=== PATIENT | female | born 1935 | race Hispanic/Latino ===

== ENCOUNTER 2016-12-09 16:23 | Inpatient (IN) | payer MEDICARE ==
[2016-12-09 17:21] VITALS: BMI 37.8
[2016-12-09] MEDS ORDERED: Sodium Chloride 0.9% 1,000 ML IV STA ×2 (17:29→22:29)
--- NOTE | 2016-12-09 17:51 | ED PDOC ---
Arrival/HPI - General Chief Complaint: Altered Mental Status Time Seen by Provider: 12/09/16 17:06 Historian: Patient - History of Present Illness Narrative History of Present Illness (Text): 12/09/16 17:19 A 81 year old female, whose past medical history includes atrial fibrillation, hypertension, hyperlipidemia and CAD, presents to the emergency department complaining of not feeling well for the past couple of days. Patient notes feeling generally weak, dizzy, having a slight headache and some nausea. She states she was told she urinates more frequently, but she denies any fever, chills, abdominal pain, vision change or any other complaints at this time. PMD: Dr. Donohue Time/Duration: Other (couple of days) Symptom Onset: Sudden Symptom Course: Unchanged Quality: Other Activities at Onset: Rest Context: Home Past Medical History - Provider Review Nursing Documentation Reviewed: Yes - Infectious Disease Hx of Infectious Diseases: None - Cardiac Hx Cardiac Disorders: Yes Hx Hypertension: Yes - Pulmonary Hx Respiratory Disorders: No - Neurological Hx Neurological Disorder: Yes Hx Dizziness: Yes - HEENT Hx HEENT Disorder: No - Renal Hx Renal Disorder: No - Endocrine/Metabolic Hx Endocrine Disorders: No - Hematological/Oncological Hx Blood Disorders: Yes Hx Shingles: Yes - Integumentary Hx Dermatological Disorder: Yes Other/Comment: Shingles on left side of neck on 04/14/16 - Musculoskeletal/Rheumatological Hx Falls: Yes - Gastrointestinal Hx Gastrointestinal Disorders: No - Genitourinary/Gynecological Hx Genitourinary Disorders: No Hx Reproductive Disorders: No - Psychiatric Hx Psychophysiologic Disorder: No Hx Emotional Abuse: No Hx Physical Abuse: No Hx Substance Use: No - Surgical History Hx Coronary Stent: Yes (X2) - Anesthesia Hx Anesthesia Reactions: No Hx Malignant Hyperthermia: No - Suicidal Assessment Feels Threatened In Home Enviroment: No Family/Social History - Physician Review Nursing Documentation Reviewed: Yes Family/Social History: Unknown Family HX Smoking Status: Never Smoked Hx Alcohol Use: No Hx Substance Use: No Allergies/Home Meds Allergies/Adverse Reactions: Allergies No Known Allergies Allergy (Verified 05/12/16 03:11) Home Medications: Home Meds Medication Instructions Recorded Confirmed Gabapentin [Neurontin] 300 mg PO TID 04/14/14 12/09/16 Pravastatin Sodium [Pravachol] 80 mg PO DAILY 04/14/14 12/09/16 Warfarin [Coumadin] 2 mg PO DAILY 04/14/14 12/09/16 Warfarin [Coumadin] 3 mg PO DAILY 12/09/16 12/09/16 Review of Systems - Physician Review All systems were reviewed & negative as marked: Yes - Review of Systems Systems not reviewed;Unavailable: Altered Mental Status (limits ROS reliability) Constitutional: Fatigue. absent: Fevers Eyes: absent: Vision Changes Respiratory: absent: SOB, Cough Cardiovascular: absent: Chest Pain Gastrointestinal: Nausea. absent: Abdominal Pain, Vomiting Genitourinary Female: Frequency. absent: Dysuria Neurological: Headache, Dizziness Physical Exam Vital Signs Reviewed: Yes Vital Signs Temp Pulse Resp BP Pulse Ox 12/09/16 21:42 101.4 F H 98 H 18 145/68 94 L 12/09/16 17:48 102 H 18 133/65 95 12/09/16 16:24 98.7 F 97 H 16 135/63 95 Temperature: Afebrile Blood Pressure: Normal Pulse: Regular Respiratory Rate: Normal Appearance: Positive for: Well-Appearing, Non-Toxic, Comfortable Pain Distress: None Mental Status: Positive for: Confused (mildly confused; AA&O x 2). No: Alert and Oriented X 3 (Alert and oriented to place and self but not time) - Systems Exam Head: Present: Atraumatic, Normocephalic Pupils: Present: PERRL Conjunctiva: Present: Normal Mouth: Present: Moist Mucous Membranes Pharnyx: Present: Normal. No: ERYTHEMA, EXUDATE Neck: Present: Normal Range of Motion Respiratory/Chest: Present: Clear to Auscultation, Good Air Exchange. No: Respiratory Distress, Accessory Muscle Use Cardiovascular: Present: Normal S1, S2, Irregular Rhythm. No: Murmurs Abdomen: Present: Normal Bowel Sounds. No: Tenderness, Distention, Peritoneal Signs Back: Present: Normal Inspection Upper Extremity: Present: Normal Inspection. No: Cyanosis, Edema Lower Extremity: Present: Edema (trace edema bilateral with nonblanching small papular rash) Neurological: Present: GCS=15, CN II-XII Intact, Speech Normal Skin: Present: Warm, Dry, Rashes (non blanching erythematous rash to the bilateral lower extremities), Normal Color Psychiatric: Present: Alert, Normal Insight, Normal Concentration. No: Oriented x 3 (oriented to self and place but not time) Medical Decision Making ED Course and Treatment: 12/09/16 17:19 Impression: A 81 year old female with generalized weakness, dizziness, headache and nausea. Differential Diagnosis include but are not limited to: infection vs TIA/CVA vs. dehydration vs electrolyte abnormality Plan: -- EKG -- Head CT -- Chest X-ray -- Labs -- Urinalysis -- IV Fluids -- Reassess and disposition Prior Visits: Notes and results from previous visits were reviewed. The patient last presented to the emergency department on 05/04/16 for evaluation of generalized weakness and lightheadedness. Progress Notes: EKG: Ordered, reviewed, and independently interpreted the EKG. Rate : 100 BPM Rhythm : Atrial fibrillation with PVC's Interpretation : right axis deviation with non specific ST/T changes. 12/09/16 19:20 CT Head Without Intravenous Contrast: Dictated and Authenticated by: Laina Chau MD COMPARISON: CT - HEAD W/O CONTRAST 05/04/2016 10:10:04 AM FINDINGS: Brain: Periventricular hypoattenuation is likely related to small vessel disease. No hemorrhage. No edema. Ventricles: Unremarkable. No ventriculomegaly. Bones/joints: Unremarkable. No acute fracture. Soft tissues: Unremarkable. Sinuses: Unremarkable as visualized. No acute sinusitis. Mastoid air cells: Unremarkable as visualized. No mastoid effusion. IMPRESSION: No acute findings. 12/09/16 21:01 Patient with leukocytosis and borderline tachycardia; lactic acid is 3.7. Code sepsis was called. 12/09/16 22:08 US abdomen pelvis reviewed: No acute findings. CT abdomen pelvis results reviewed: IMPRESSION: 1. LEFT distal ureteral calculus with mild hydroureteronephrosis. 2. Probable cirrhosis. 3. Mild cystitis vs underdistention. Correlate with urinalysis. 12/09/16 22:00 Given stone found on CT; will continue aggressive hydration and will add meropenem. 12/09/16 22:45 Case was discussed with Dr. Lazo for admission to his service. Case discussed with ICU attending, Dr. Barragan, who will accept the patient to the ICU. Case discussed with Dr. Rivero, who said to continue to hydration and repeat lactic acid, admit to ICU, with plan to take her to the OR in the early am. Spoke with sister's to inform of plan. - Critical Care Critical Care Minutes: 30 minutes - Lab Interpretations Lab Results: 12/09/16 18:45 12/09/16 18:45 Lab Results 12/09/16 19:56: Urine Opiates Screen Negative, Urine Methadone Screen Negative, Ur Barbiturates Screen Negative, Ur Phencyclidine Scrn Negative, Ur Amphetamines Screen Negative, U Benzodiazepines Scrn Negative, U Oth Cocaine Metabols Negative, U Cannabinoids Screen Negative 12/09/16 19:50: Urine Color Yellow, Urine Appearance Sl cloudy, Urine pH 6.0, Ur Specific [place] 1.025, Urine Protein 100 H, Urine Glucose (UA) Negative, Urine Ketones Negative, Urine Blood Large H, Urine Nitrate Positive H, Urine Bilirubin Negative, Urine Urobilinogen 0.2, Ur Leukocyte Esterase Moderate H, Urine RBC 25 - 30, Urine WBC 20 - 25, Ur Epithelial Cells 4 - 5, Amorphous Sediment Moderate, Urine Bacteria Many, Urine Other Uyeast 12/09/16 18:45: pO2 49, VBG pH 7.34, VBG pCO2 45.0, VBG HCO3 24.3, VBG Total CO2 25.7, VBG O2 Sat (Calc) 87.9 H, VBG Base Excess -1.7 L, VBG Potassium 3.5 L , Sodium 138.0, Chloride 105.0, Glucose 110 H, Lactate 3.7 H, FiO2 21.0, Venous Blood Potassium 3.5 L 12/09/16 18:45: Alcohol, Quantitative < 10 12/09/16 18:45: Sodium 137, Chloride 100, Potassium 3.6, Carbon Dioxide 23, Anion Gap 18, BUN 17, Creatinine 0.7, Est GFR ( Amer) > 60, Est GFR (Non- Af Amer) > 60, Random Glucose 106, Calcium 9.6, Total Bilirubin 1.4 H, AST 70 H , ALT 60 H, Alkaline Phosphatase 100, Lactate Dehydrogenase 715 H, Total Creatine Kinase 133, Troponin I 0.04 D, Total Protein 7.8, Albumin 4.0, Globulin 3.8, Albumin/Globulin Ratio 1.1, Amylase 42, Lipase 19 L 12/09/16 18:45: PT 37.6 H*, INR 3.48 H, APTT 49.6 H 12/09/16 18:45: WBC 17.9 H, RBC 4.33, Hgb 13.4, Hct 39.1, MCV 90.3, MCH 30.9, MCHC 34.3, RDW 15.2 H, Plt Count 113 L, MPV 10.9, Gran % 89.7 H, Lymph % (Auto) 2.4 L, [place] % (Auto) 7.8 H, Eos % (Auto) 0.0 L, Baso % (Auto) 0.1, Gran # 16.03 H, Lymph # 0.4 L, [place] # 1.4 H, Eos # 0.0, Baso # 0.02 I have reviewed the lab results: Yes - RAD Interpretation Narrative RAD Interpretations (Text): EXAM: US Abdomen Complete FINDINGS: Liver: Enlarged, 18.8 cm. Fatty infiltration. No mass. No intrahepatic ductal dilatation. Gallbladder: No gallstones. No wall thickening. No pericholecystic fluid. No sonographic Rogers's sign. Common bile duct: No dilatation. No stones. Pancreas: Unremarkable as visualized. Kidneys: Normal echogenicity. Few small RIGHT renal cysts. No hydronephrosis. Spleen: No splenomegaly. Aorta: Unremarkable. No aneurysm. Inferior vena cava: Unremarkable. Free fluid: No significant free fluid. IMPRESSION: 1. No acute findings. 2. Non-acute findings are described above. EXAM: CT Abdomen and Pelvis With Intravenous Contrast FINDINGS: Lower thorax: Mild cardiomegaly. Mild atelectasis/scarring. Small RIGHT pleural effusion. Small hiatal hernia. ABDOMEN: Liver: Lobulated contour. Gallbladder and bile ducts: Mild gallbladder distention. No calcified gallstones. No ductal dilation. Pancreas: No ductal dilation. No mass. Spleen: No splenomegaly. Adrenals: No mass. Kidneys and ureters: Mild stranding about LEFT kidney. Few RIGHT renal cysts. Few punctate calculi within kidneys. Mild pelvocaliectasis of LEFT kidney. Mildly dilated LEFT ureter. 0.7 x 0.5 x 0.5 calculus within LEFT distal ureter. Stomach and bowel: Few segmental areas of underdistention of colon. No definite mural thickening. No obstruction. Appendix: Normal caliber. No inflammation. PELVIS: Bladder: Apparent mild bladder wall thickening. Collapsed bladder, limiting evaluation. Reproductive: Calcifications within the LEFT adnexal region, stable. ABDOMEN and PELVIS: Intraperitoneal space: No significant fluid collection. No free air. Bones/joints: Degenerative changes of spine. No acute fracture. Soft tissues: Small umbilical hernia containing fat. Small RIGHT inguinal hernia containing fat and fluid. Tiny LEFT inguinal hernia containing fat. Vasculature: Ambp-[id number] atherosclerotic disease. No aortic aneurysm. Lymph nodes: No pathologically enlarged lymph nodes. IMPRESSION: 1. LEFT distal ureteral calculus with mild hydroureteronephrosis. 2. Probable cirrhosis. 3. Mild cystitis vs underdistention. Correlate with urinalysis. 4. Incidental/non-acute findings are described above. Radiology Orders: 12/09/16 17:26 Brain [HEAD W/O CONTRAST] [CT] Stat 12/09/16 17:27 CHEST PORTABLE [RAD] Stat 12/09/16 19:38 ABD & PELVIS IV CONTRAST ONLY [CT] Stat ABDOMEN COMPLETE [US] Stat Deodorizer Operator: Radiologist - Medication Orders Current Medication Orders: Sodium Chloride (Sodium Chloride 0.9%) 1,000 mls @ 100 mls/hr IV .Q10H STA Stop: 12/10/16 03:28 Last Admin: 12/09/16 19:01 Dose: 100 mls/hr Meropenem 1g/NS 100mL IVPB (Meropenem 1g/Ns 100ml Ivpb) 1 gm in 100 mls @ 100 mls/hr IVPB STAT STA PRN Reason: Protocol Stop: 12/09/16 23:08 Sodium Chloride (Sodium Chloride 0.9%) 1,000 mls @ 999 mls/hr IV .Q1H1M STA Stop: 12/09/16 23:29 Meropenem 1g/NS 100mL IVPB (Meropenem 1g/Ns 100ml Ivpb) 1 gm in 100 mls @ 100 mls/hr IVPB Q8 JAMES PRN Reason: Protocol Stop: 12/10/16 06:59 Vancomycin HCl (Vancomycin 1gm) 1 gm in 250 mls @ 167 mls/hr IVPB Q12H JAMES PRN Reason: Protocol Discontinued Medications Acetaminophen (Tylenol 325mg Tab) 975 mg PO STAT STA Stop: 12/09/16 22:30 Ceftriaxone Sodium (Rocephin 1 Gram Ivpb) 1 gm in 100 mls @ 200 mls/hr IV ONCE STA PRN Reason: Protocol Stop: 12/09/16 20:51 Last Admin: 12/09/16 20:41 Dose: 200 mls/hr Iohexol (Omnipaque 350 150 Ml) Confirm Administered Dose 150 ml .ROUTE .[facility] Stop: 12/09/16 19:51 - Scribe Statement The provider has reviewed the documentation as recorded by the Pedroibtierra Stoll Provider Melbae Attestation: All medical record entries made by the Scribe were at my direction and personally dictated by me. I have reviewed the chart and agree that the record accurately reflects my personal performance of the history, physical exam, medical decision making, and the department course for this patient. I have also personally directed, reviewed, and agree with the discharge instructions and disposition. Disposition/Present on Arrival - Present on Arrival Any Indicators Present on Arrival: No History of DVT/PE: No History of Uncontrolled Diabetes: No Urinary Catheter: No History of Decub. Ulcer: No History Surgical Site Infection Following: None - Disposition Have Diagnosis and Disposition been Completed?: Yes Diagnosis: Altered mental status, Sepsis, Calculus of distal left ureter Disposition: HOSPITALIZED Disposition Time: 22:40 Patient Plan: Admission Condition: SERIOUS
[2016-12-09 18:54] LABS: ADD MANUAL DIFF? NO
[2016-12-09 18:59] LABS: BASO # 0.02 K/mm3 (0.0-2.0); BASO % 0.1 % (0.0-3.0); GRAN # 16.03 (1.4-6.5); GRAN % 89.7 % (50.0-68.0); HEMATOCRIT 39.1 % (36.0-48.0); LYMPH # 0.4 (1.2-3.4); LYMPH % 2.4 % (22.0-35.0); MEAN CELL VOLUME 90.3 fL (80.0-105.0); MEAN CORPUSCULAR HEMOGLOBIN 30.9 pg (25.0-35.0); MEAN CORPUSCULAR HGB CONC 34.3 g/dl (31.0-37.0); MEAN PLATELET VOLUME 10.9 fl (7.0-11.0); MONO # 1.4 (0.1-0.6); MONO % 7.8 % (1.0-6.0); PLATELET COUNT 113 10^3/uL (120.0-450.0); RED CELL DISTRIBUTION WIDTH 15.2 % (11.5-14.5); VENOUS BLOOD GAS BASE EXCESS -1.7 mmol/L (0.0-2.0); VENOUS BLOOD PH 7.34 (7.32-7.43); WHITE BLOOD COUNT 17.9 10^3/ul (4.5-11.0)
[2016-12-09 19:10] LABS: ALB/GLOB RATIO 1.1 (1.1-1.8); ALKALINE PHOSPHATASE 100 U/L (38-133); ALT/SGPT 60 U/L (7-56); AMYLASE 42 U/L (35-125); AST/SGOT 70 U/L (15-39); BILIRUBIN,TOTAL 1.4 mg/dL (0.2-1.3); BLOOD UREA NITROGEN 17 mg/dL (7-21); CALCIUM 9.6 mg/dL (8.4-10.5); CARBON DIOXIDE 23 mmol/L (21-33); CHLORIDE 100 mmol/L (98-107); GFR AFRICAN-AMERICAN > 60; GLUCOSE,RANDOM 106 mg/dL (70-110); LIPASE 19 U/L (23-300); POTASSIUM 3.6 mmol/L (3.6-5.0); SODIUM 137 mmol/L (132-148); TOTAL PROTEIN 7.8 g/dL (5.8-8.3)
[2016-12-09 19:11] LABS: INR 3.48 (0.93-1.08); PARTIAL THROMBOPLASTIN TIME 49.6 Seconds (23.7-30.8)
[2016-12-09 19:21] LABS: TROPONIN I 0.04 ng/mL
[2016-12-09 20:03] LABS: URINE BILIRUBIN NEGATIVE (NEGATIVE); URINE BLOOD LARGE (NEGATIVE); URINE GLUCOSE (UA) NEGATIVE (NEGATIVE); URINE KETONE NEGATIVE (NEGATIVE); URINE LEUKOCYTE ESTERASE MODERATE Leu/uL (NEGATIVE); URINE PROTEIN 100 mg/dL (<30 mg/dL); URINE UROBILINOGEN 0.2 E.U./dL (<1 E.U./dL)
[2016-12-09 20:04] LABS: URINE APPEARANCE SL CLOUDY (CLEAR); URINE COLOR YELLOW (YELLOW)
[2016-12-09] MEDS ORDERED: cefTRIAXone 1 gm 1 GM/100 ML BAG IV STA (20:22)
[2016-12-09 20:28] LABS: URINE RBC 25 - 30 /hpf (0-2); URINE WBC 20 - 25 /hpf (0-6)
[2016-12-09 20:29] LABS: URINE AMORPHOUS SEDIMENT MODERATE; URINE BACTERIA MANY (NEG)
[2016-12-09] MEDS ORDERED: Cefepime 1gm in NS 100ml 1 GM/100 ML BAG IVPB ONE (20:56)
[2016-12-09] MEDS ORDERED: Vancomycin 1gm in NS 250ml 1 GM/250 ML BAG IVPB STA (20:58)
--- NOTE | 2016-12-09 21:33 | US ---
EXAM: US Abdomen Complete CLINICAL HISTORY: 81 years old, female; Pain; Abdominal pain; Additional info: Vomiting TECHNIQUE: Real-time ultrasound of the abdomen (complete) with image documentation. COMPARISON: No relevant prior studies available. FINDINGS: Liver: Enlarged, 18.8 cm. Fatty infiltration. No mass. No intrahepatic ductal dilatation. Gallbladder: No gallstones. No wall thickening. No pericholecystic fluid. No sonographic Rogers's sign. Common bile duct: No dilatation. No stones. Pancreas: Unremarkable as visualized. Kidneys: Normal echogenicity. Few small RIGHT renal cysts. No hydronephrosis. Spleen: No splenomegaly. Aorta: Unremarkable. No aneurysm. Inferior vena cava: Unremarkable. Free fluid: No significant free fluid. IMPRESSION: 1.No acute findings. 2.Non-acute findings are described above.
[2016-12-09] MEDS ORDERED: Meropenem 1g/NS 100mL IVPB 1 GM/100 ML PIGGYBACK IVPB STA (22:09)
[2016-12-09] MEDS ORDERED: Phytonadione 10 MG in Sodium Chloride 0.9% 50 ML IV ONE (22:52)
--- NOTE | 2016-12-09 22:55 | CP.PCM.CON ---
History of Present Illness - History of Present Illness History of Present Illness: Critical care consult for Dr. Saran Pacheco, PGY-1 Pt S & E at bedside. Pt w/dementia, history as per EMR. 81F w/PMH sig for afib, HTN, HLD, CAD admitted to ICU for AMS due to sepsis. Pt reports not feeling well over past few days, admits to weakness, urinary frequency, some nausea, states she has "everything wrong with her". Admits to eveything, appears to be altered. ROS unreliable due to dementia PMH: Afib, HTN, HLD, CAD, hx Shingles, hx falls PSH: Coronary stents x 2 All: NKA SH: Never smoked, no ETOH or illicit drug use PMD: Condo/Violet Review of Systems - Review of Systems Systems not reviewed;Unavailable: Dementia All systems: reviewed and no additional remarkable complaints except - Gastrointestinal Gastrointestinal: Abdominal Pain, Nausea - Genitourinary Genitourinary: Urinary Frequency. absent: Dysuria - Psychiatric Psychiatric: Confusion, Irritability Past Patient History - Infectious Disease Hx of Infectious Diseases: None - Past Social History Smoking Status: Never Smoked - CARDIAC Hx Cardiac Disorders: Yes Hx Hypertension: Yes - PULMONARY Hx Respiratory Disorders: No - NEUROLOGICAL Hx Neurological Disorder: Yes Hx Dizziness: Yes - HEENT Hx HEENT Problems: No - RENAL Hx Chronic Kidney Disease: No - ENDOCRINE/METABOLIC Hx Endocrine Disorders: No - HEMATOLOGICAL/ONCOLOGICAL Hx Blood Disorders: Yes Hx Shingles: Yes - INTEGUMENTARY Hx Dermatological Problems: Yes Other/Comment: Shingles on left side of neck on 04/14/16 - MUSCULOSKELETAL/RHEUMATOLOGICAL Hx Falls: Yes - GASTROINTESTINAL Hx Gastrointestinal Disorders: No - GENITOURINARY/GYNECOLOGICAL Hx Genitourinary Disorders: No Hx Reproductive Disorders: No - PSYCHIATRIC Hx Psychophysiologic Disorder: No Hx Emotional Abuse: No Hx Physical Abuse: No Hx Substance Use: No - SURGICAL HISTORY Hx Coronary Stent: Yes (X2) - ANESTHESIA Hx Anesthesia Reactions: No Hx Malignant Hyperthermia: No Meds Allergies/Adverse Reactions: Allergies Allergy/AdvReac Type Severity Reaction Status Date / Time No Known Allergies Allergy Verified 05/12/16 03:11 - Medications Medications: Current Medications Aspirin (Aspirin Chewable) 81 mg PO DAILY JAMES Sodium Chloride (Sodium Chloride 0.9%) 1,000 mls @ 100 mls/hr IV .Q10H STA Stop: 12/10/16 03:28 Last Admin: 12/09/16 19:01 Dose: 100 mls/hr Meropenem 1g/NS 100mL IVPB (Meropenem 1g/Ns 100ml Ivpb) 1 gm in 100 mls @ 100 mls/hr IVPB STAT STA PRN Reason: Protocol Stop: 12/09/16 23:08 Sodium Chloride (Sodium Chloride 0.9%) 1,000 mls @ 999 mls/hr IV .Q1H1M STA Stop: 12/09/16 23:29 Meropenem 1g/NS 100mL IVPB (Meropenem 1g/Ns 100ml Ivpb) 1 gm in 100 mls @ 100 mls/hr IVPB Q8 JAMES PRN Reason: Protocol Stop: 12/10/16 06:59 Vancomycin HCl (Vancomycin 1gm) 1 gm in 250 mls @ 167 mls/hr IVPB Q12H JAMES PRN Reason: Protocol Sodium Chloride (Sodium Chloride 0.9%) 1,000 mls @ 125 mls/hr IV .Q8H JAMES Phytonadione 10 mg/ Sodium (Chloride) 51 mls @ 100 mls/hr IV ONCE ONE Stop: 12/09/16 23:22 Pantoprazole Sodium (Protonix Inj) 40 mg IVP DAILY JAMES Physical Exam - Constitutional Appears: Non-toxic, Agitated, Confused - Head Exam Head Exam: ATRAUMATIC, NORMAL INSPECTION, NORMOCEPHALIC - Eye Exam Eye Exam: EOMI, Normal appearance, PERRL Pupil Exam: NORMAL ACCOMODATION, PERRL - ENT Exam ENT Exam: Mucous Membranes Moist, Normal Exam - Neck Exam Neck exam: Positive for: Full Rom, Normal Inspection. Negative for: Meningismus , Tenderness - Respiratory Exam Respiratory Exam: Clear to Auscultation Bilateral, NORMAL BREATHING PATTERN. absent: Chest Wall Tenderness, Rales, Rhonchi, Wheezes - Cardiovascular Exam Cardiovascular Exam: Tachycardia, +S1, +S2 - GI/Abdominal Exam GI & Abdominal Exam: Normal Bowel Sounds, Soft. absent: Tenderness - Extremities Exam Extremities exam: Positive for: normal inspection - Neurological Exam Neurological exam: Altered - Psychiatric Exam Psychiatric exam: Normal Affect, Normal Mood - Skin Skin Exam: Dry, Warm Additional comments: Left hip with hyperpigmented pink areas, 1 large bullae with yellow fluid noted on lateral aspect of hip Results - Vital Signs Recent Vital Signs: Last Vital Signs Temp 101.4 F H 12/09/16 21:42 Pulse 98 H 12/09/16 21:42 Resp 18 12/09/16 21:42 BP 145/68 12/09/16 21:42 Pulse Ox 94 L 12/09/16 21:42 - Labs Result Diagrams: 12/09/16 18:45 12/09/16 18:45 Assessment & Plan - Assessment and Plan (Free Text) Assessment: 81F admitted to ICU for sepsis due to ureteral stone with left hydronephrosis. Plan: Neuro hx Dementia slightly agitation stable HOB to [address] brain w/Periventricular hypoattenuation is likely related to small vessel disease. No hemorrhage. No edema. Ventricles: Unremarkable. No ventriculomegaly. Bones/joints: Unremarkable. No acute fracture. Soft tissues: Unremarkable. Sinuses: Unremarkable as visualized. No acute sinusitis. Mastoid air cells: Unremarkable as visualized. No mastoid effusion. IMPRESSION: No acute findings. Cardio Hx HTN, HLD, afib on coumadin, CAD EKG w/afib w/premature ventricular or aberrantly conducted complexes, Right axis deviation BP 145/68 HR 98 CK 133 Trop indeterminant - 0.04 ASA 81mg PO daily Norvasc 5mg QAM per Dr. Lazo Monitor Pulm O2 via NC PRN Target SaO2 >94% SaO2 95% HOB to 30 degrees VBG pH 7.34, pO2 49, pCO2 45, HCO3 24.3 repeat VBG pH 7.42, pO2 189, pCO2 31, HCO3 20.1 FU CXR -pending official read Monitor Renal BUN 17 Cr 0.7 NS@125 I/O's CT abdomen pelvis results reviewed: IMPRESSION: 1. LEFT distal ureteral calculus with mild hydroureteronephrosis. 2. Probable cirrhosis. 3. Mild cystitis vs underdistention. Correlate with urinalysis. GI NPO T bili 1.4 AST 70 ALT 60 ALP 100 LDH 715 amylase 42 Lipase 19 US abdomen pelvis reviewed: No acute findings. Endo BS 87 Given 1 amp D50 Target euglycemia currently NPO for OR Monitor U/A pos for nitrates, mod LE, lrg blood, 100 protein UDS neg I/O's [place] ordered Monitor CT abdomen pelvis results reviewed: IMPRESSION: 1. LEFT distal ureteral calculus with mild hydroureteronephrosis. 2. Probable cirrhosis. 3. Mild cystitis vs underdistention. Correlate with urinalysis. Uro consulted- Mat- pt to go to OR tonight ID Febrile Tmax 101.4 leukocytosis 17.9 Lactate 3.7, repeated 3.9 SIRS, possible sepsis Started Merrem 1mg Q8H Started Vancomycin 1gm O12H FU Blood cx FU urine cx FU VBG shock panel at 3am FU procalcitonin Heme Hgb 13.4 Hct 39.1 INR 3.48 Vitamin K x 1 FU PT/INR at 3am Per Mat-no need to reverse pt w/FFP for OR Musculosketal Fall precautions Home med: Gabapentin as per Dr. Lazo GI/DVT ppx SCDs Protonix Dispo Admit to ICU QS Q4H PO care Q4H OR tonight per Mat Telephone consent obtained from daughter- Jaylin Soriano LISA attending - Date & Time Date: 12/09/16 Time: 11:30
[2016-12-09 23:11] LABS: VENOUS BLOOD GAS BASE EXCESS -3.4 mmol/L (0.0-2.0); VENOUS BLOOD PH 7.42 (7.32-7.43)
[2016-12-09] MEDS: Meropenem 1g/NS 100mL IVPB 1 GM/100 ML PIGGYBACK IVPB SCH (23:55)
[2016-12-09] MEDS: Sodium Chloride 0.9% 1,000 ML IV SCH (23:57)
[2016-12-10] MEDS: Meropenem 1g/NS 100mL IVPB 1 GM/100 ML PIGGYBACK IVPB SCH ×6 (00:15→22:27)
[2016-12-10] MEDS ORDERED: Dextrose 50% SYRINGE Inj (50 ml) ONE (00:23)
[2016-12-10] MEDS: Dextrose 50% SYRINGE Inj (50 ml) IVP STA ×2 (00:31→07:30)
[2016-12-10] MEDS: Vancomycin 1gm in NS 250ml 1 GM/250 ML BAG IVPB SCH ×3 (00:56→11:03)
[2016-12-10] MEDS ORDERED: Lactated Ringer's 1,000 ML IV SCH (00:58)
[2016-12-10] MEDS ORDERED: Iohexol 240 (50 ml) ONE (01:26)
[2016-12-10] MEDS ORDERED: Etomidate 20 mg/10ml Inj IV ONE (01:27)
[2016-12-10 06:11] LABS: HEMATOCRIT 38.2 % (36.0-48.0); MEAN CELL VOLUME 89.9 fL (80.0-105.0); MEAN CORPUSCULAR HEMOGLOBIN 30.4 pg (25.0-35.0); MEAN CORPUSCULAR HGB CONC 33.8 g/dl (31.0-37.0); MEAN PLATELET VOLUME 10.9 fl (7.0-11.0); PLATELET COUNT 99 10^3/uL (120.0-450.0); RED CELL DISTRIBUTION WIDTH 15.8 % (11.5-14.5); VENOUS BLOOD GAS BASE EXCESS -1.7 mmol/L (0.0-2.0); VENOUS BLOOD PH 7.34 (7.32-7.43); WHITE BLOOD COUNT 16.8 10^3/ul (4.5-11.0)
[2016-12-10 06:22] LABS: INR 2.67 (0.93-1.08)
[2016-12-10 06:23] LABS: ADD MANUAL DIFF? YES
[2016-12-10 06:24] LABS: GFR AFRICAN-AMERICAN > 60
[2016-12-10 06:40] LABS: ALKALINE PHOSPHATASE 80 U/L (38-133); ALT/SGPT 57 U/L (7-56); AST/SGOT 51 U/L (15-39); BILIRUBIN,TOTAL 1.5 mg/dL (0.2-1.3); BLOOD UREA NITROGEN 17 mg/dL (7-21); CALCIUM 9.1 mg/dL (8.4-10.5); CARBON DIOXIDE 25 mmol/L (21-33); CHLORIDE 102 mmol/L (95-110); GLUCOSE,RANDOM 104 mg/dL (70-110); MAGNESIUM 1.6 mg/dL (1.7-2.2); POTASSIUM 3.4 mmol/L (3.6-5.0); SODIUM 139 mmol/L (132-148); TOTAL PROTEIN 7.3 g/dL (5.8-8.3)
[2016-12-10] MEDS: Sodium Chloride 0.9% 1,000 ML IV SCH ×3 (08:12→22:29)
--- NOTE | 2016-12-10 08:26 | RAD ---
HISTORY: alt ms COMPARISON: 05/04/2016 FINDINGS: LUNGS: No active pulmonary disease. PLEURA: No significant pleural effusion identified, no pneumothorax apparent. CARDIOVASCULAR: Mild cardiomegaly OSSEOUS STRUCTURES: No significant abnormalities. VISUALIZED UPPER ABDOMEN: Normal. OTHER FINDINGS: None. IMPRESSION: No active disease.
[2016-12-10] MEDS ORDERED: Magnesium Sulfate 1 gm in D5W 1 GM/100 ML BAG IVPB ONE (08:48)
[2016-12-10] MEDS ORDERED: Potassium Chloride 40 mEq/30 ml LIQ UD PO ONE (08:57)
[2016-12-10 09:09] LABS: BILIRUBIN,DIRECT 0.9 mg/dL (0.0-0.4)
[2016-12-10 09:12] LABS: NEUTROPHIL 80 % (50.0-70.0)
[2016-12-10 09:13] LABS: ANISOCYTOSIS 1+; ATYPICAL LYMPHOCYTE 1 % (0.0-0.0); BAND 11 % (0-2); HYPOCHROMIA SLIGHT; LARGE PLATELETS PRESENT; OVALOCYTES SLIGHT; PLATELET ESTIMATE NORMAL (NORMAL)
[2016-12-10 09:21] LABS: TROPONIN I 0.1 ng/mL
--- NOTE | 2016-12-10 09:47 | CT ---
PROCEDURE: CT HEAD WITHOUT CONTRAST. HISTORY: Altered mental status COMPARISON: 05/04/2016 TECHNIQUE: Axial computed tomography images were obtained through the head/brain without intravenous contrast. Radiation dose: Total exam DLP = 919 mGy-cm. This CT exam was performed using one or more of the following dose reduction techniques: Automated exposure control, adjustment of the mA and/or kV according to patient size, and/or use of iterative reconstruction technique. FINDINGS: HEMORRHAGE: No intracranial hemorrhage. BRAIN: No mass effect or edema. Scattered focal lucencies in the subcortical and periventricular white matter suggestive for chronic microvascular ischemic change. Punctate hypodensity in the left basal ganglia may represent a dilated perivascular space versus small lacunar infarct. VENTRICLES: Unremarkable. No hydrocephalus. CALVARIUM: Unremarkable. PARANASAL SINUSES: Unremarkable as visualized. No significant inflammatory changes. MASTOID AIR CELLS: Unremarkable as visualized. No inflammatory changes. OTHER FINDINGS: None. IMPRESSION: No acute intracranial abnormality. Chronic microvascular ischemic change. If focal neurologic deficit persists, consider MRI. These findings were preliminarily reported at 7:18 p.m. on 12/09/[address] Laina Chau from [facility].
--- NOTE | 2016-12-10 10:11 | OP ---
PROCEDURE DATE: 12/10/2016 PREOPERATIVE DIAGNOSES: Sepsis, left ureteral calculus. POSTOPERATIVE DIAGNOSES: Sepsis, left ureteral calculus. PROCEDURES: Cystoscopy, left retrograde pyelogram, insertion of a left ureteral stent. ATTENDING SURGEON: Vipul Rivero MD ANESTHESIA: General. SPECIMENS: There were none. DRAINS: A 6 x 24 left ureteral stent. COMPLICATIONS: There were none. OPERATIVE FINDINGS: After informed consent was obtained from the patient's family, the patient was t aken to the operating room and placed on the operating table and anesthesia was administered. The pa tient was placed in dorsal lithotomy position and prepped and draped in usual sterile fashion. A 21- Nepali cystoscope was placed in the patient's bladder and a full survey inspection was performed. 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 There were no papillary tumors noted . Both ureteral orifices were visualized and appeared within normal limits. At this point, a 5-Fren ch open-ended ureteral catheter was introduced through the cystoscope and guided into the left ureter al orifice. A left retrograde pyelogram was then performed by instilling contrast into the left uret er through the open-ended ureteral catheter during realtime fluoroscopy. There was a large mobile fi lling defect noted in the distal ureter. The ureter above this appeared to be dilated. There was so me fullness of the renal pelvis. There was no hydronephrosis. At this point, a sensor wire was obta ined. The sensor wire was passed through the open-ended ureteral catheter and was able to be guided past the filling defect and advanced up the ureter under direct and fluoroscopic guidance. When the wire was in proper position, the open-ended ureteral stent was removed. A 6 x 24 stent was obtained. It was passed over the guidewire, through the cystoscope and into the left ureter. The stent was a dvanced proximally under direct and fluoroscopic guidance until it was in at the appropriate position . When the stent was in proper position, the guidewire was removed. A coil was seen in the renal pe lvis on fluoroscopy. A coil was seen in the bladder on cystoscopy. On fluoroscopy, contrast was not ed to be draining promptly through the stent into the bladder. At this point, the procedure was comp leted. The bladder was drained and the cystoscope was removed. The patient tolerated the procedure well. She was taken to the recovery room awake and in stable condition. Vipul Rivero MD cc: [id number] TT: 12/10/2016 10:10:52 mn
[2016-12-10] MEDS: Potassium Chloride 20 mEq ER Tab PO SCH (10:42)
[2016-12-10 10:50] LABS: VENOUS BLOOD GAS BASE EXCESS -0.2 mmol/L (0.0-2.0); VENOUS BLOOD PH 7.39 (7.32-7.43)
--- NOTE | 2016-12-10 10:55 | HP ---
CHIEF COMPLAINT AND HISTORY OF PRESENT ILLNESS: This is an 81-year-old female who is coming into the hospital because of confusion. The patient has a history of atrial fibrillation, hypertension, hype rlipidemia, coronary artery disease. She has not been feeling well. According to the notes and the family who I spoke to at the bedside, she is having a headache, some nausea. She is having more urin iraida frequency. She denies any fevers or chills. No abdominal pain. No back pain. No weakness in t he arms or the legs. She developed a fever in the Emergency Room of 101.4, so she was admitted for f urther evaluation. She had a CAT scan done of her abdomen that showed a left distal ureteral calculu s with mild hydroureteronephrosis. The patient was seen by Dr. Rivero for evaluation of her stone. José mayorga had a cystoscopy with a stent that was placed successfully. She is currently in the ICU. She is c onfused. She has restraints to prevent harm for herself. REVIEW OF SYSTEMS: Limited. ALLERGIES: No known drug allergies. HOME MEDICATIONS: She takes pravastatin, Coumadin, Neurontin. PAST MEDICAL HISTORY: As above, AFib, hypertension, dyslipidemia, coronary artery disease with stent . SOCIAL HISTORY: She never smoked. She denies drug or alcohol abuse. FAMILY HISTORY: Noncontributory. PHYSICAL EXAMINATION: VITAL SIGNS: Temperature is 98, T-max is 101.4, pulse of 128, blood pressure is 166/85. GENERAL: Patient lying in bed, flat, and in no apparent distress. HEAD AND NECK EXAM: Atraumatic, normocephalic. Conjunctivae are pink. Throat clear and mouth with moist mucosa. Oropharynx benign. EYES: Extraocular movements are intact. PERRLA. NECK: Supple. No JVD, thyromegaly, or adenopathy. No bruits. HEART: S1, S2 is tachycardic, II/ systolic ejection murmur. LUNGS: Clear to auscultation bilaterally. No wheezing rales or rhonchi appreciated. No retraction s on exam. ABDOMEN: Soft, nontender, nondistended. Bowel sounds are positive in all quadrants. No rebound. No hepatosplenomegaly. EXTREMITIES: No cyanosis, clubbing, or edema. NEURO: No facial asymmetry, tongue is midline, no uvula deviation. Power is 5/5 in upper extremity and 5/5 in lower extremity. Sensation is normal in upper extremity and lower extremity. PSYCH: Awake, alert, oriented x3. No anxiety or depression symptoms. Good insight. Normal affec t. : No CVA tenderness VASCULAR: 2+ pulses in carotid and pedal pulses. SKIN: No erythema or abnormal nodules noted. SPINE: Normal curvature. LYMPHADENOPATHY: No anterior cervical or posterior cervical adenopathy. No inguinal adenopathy. LABORATORY DATA: White count of 17.9, repeat is 16.8. Chemistry shows a sodium 139, potassium 3.4. AST and ALT is 51/57. Urine tox is negative. INR was 3.48, repeat was 2.67. Ultrasound shows no acute findings. ASSESSMENT: 1. Sepsis. 2. Left-sided kidney stone with hydroureter. 3. Status post left stent placement. 4. Atrial fibrillation with rapid rate. 5. Coronary artery disease. 6. Hypertension. 7. Dyslipidemia. PLAN: The patient is currently comfortable. She has been admitted to the hospital. She is currentl y in the ICU. The patient is currently on gabapentin for neuropathy. The patient is going to contin ue with Norvasc for hypertension. She is on IV antibiotics with vancomycin. We will get Dr. Dina villanueva to evaluate for sepsis. She has a procalcitonin level that has been ordered. Blood cultures and urine cultures are pending. Will also get a cardiac evaluation for her atrial fibrillation. She wi ll need better rate control. She is currently on meropenem for antibiotics. Her CT head that was do ne showed no acute findings. She had an EKG that shows a heart rate of 100 with atrial fibrillation, PVC present. Moreno Lazo MD cc: [id number] TT: 12/10/2016 10:54:54 dusty
--- NOTE | 2016-12-10 12:16 | CT ---
PROCEDURE: CT Abdomen and Pelvis with contrast HISTORY: vomiting, leukocytosis COMPARISON: None. TECHNIQUE: Contrast dose: 150 cc of Omni 300 Radiation dose: Total exam DLP = 1181 mGy-cm. This CT exam was performed using one or more of the following dose reduction techniques: Automated exposure control, adjustment of the mA and/or kV according to patient size, and/or use of iterative reconstruction technique. FINDINGS: LOWER THORAX: Unremarkable. LIVER: Unremarkable. No gross lesion or ductal dilatation. GALLBLADDER AND BILE DUCTS: Unremarkable. PANCREAS: Unremarkable. No gross lesion or ductal dilatation. SPLEEN: Unremarkable. ADRENALS: Unremarkable. No mass. KIDNEYS AND URETERS: There is mild mural thickening and enhancement of the renal pelvis. The left ureter is also mildly dilated. There is also some perinephric stranding. Findings are suspicious for urinary tract infection and possible pyelonephritis. There is no edema in the kidney. There are no ureteral stones. VASCULATURE: Unremarkable. No aortic aneurysm. BOWEL: Unremarkable. No obstruction. No gross mural thickening. APPENDIX: Normal appendix. PERITONEUM: Unremarkable. No free fluid. No free air. LYMPH NODES: Unremarkable. No enlarged lymph nodes. BLADDER: Unremarkable. REPRODUCTIVE: Unremarkable. BONES: There is a vacuum disc at L5-S1. OTHER FINDINGS: None. IMPRESSION: Mildly dilated left ureter and renal collecting system with mural thickening and enhancement consistent with urinary tract infection/pyelonephritis. There is also a moderate amount of perinephric stranding
--- NOTE | 2016-12-10 12:26 | CON ---
DATE: 12/10/2016 REQUESTING PHYSICIAN: Dr. Lazo. REASON FOR CONSULTATION: Rapid atrial fibrillation. HISTORY OF PRESENT ILLNESS: This is an 81-year-old woman who was brought to the Emergency Room [facility] of worsening confusion. She had complained of not feeling well for several days. She is also not ed to be febrile. CT of the abdomen showed evidence of a left ureteral calculus with mild hydrourete ronephrosis. She was seen by Dr. Rivero and had a ureteral stent placed last evening. She is presentl y in the ICU. She is currently somewhat confused and in wrist restraints. She does have a history o f hypertension, hyperlipidemia, coronary artery disease, atrial fibrillation. MEDICATIONS: At home had included pravastatin, Coumadin and Neurontin. She is currently on aspirin, Coumadin, meropenem, Neurontin, amlodipine, Protonix and vancomycin. ALLERGIES: She has no known allergies. SOCIAL HISTORY: She denies tobacco or alcohol use. FAMILY HISTORY: She cannot recall. REVIEW OF SYSTEMS: Ten point review of systems is also limited because of her mental status. PHYSICAL EXAMINATION: GENERAL: She is a frail appearing elderly woman. VITAL SIGNS: Her blood pressure is 160/86 with a pulse of 90-120, respirations are 14. She is curre ntly afebrile, but had a temperature of 101.4 last evening. HEENT: Normocephalic, atraumatic. NECK: Supple, no JVD noted. CHEST: Bilateral scattered rhonchi heard. HEART: PMI is displaced laterally with an irregularly irregular rhythm. ABDOMEN: Soft, nontender, normoactive bowel sounds. EXTREMITIES: No edema. SKIN: Warm and dry. PSYCHIATRIC: Moderate confusion present. NEUROLOGIC: Unable to fully assess. Moving all 4 extremities. DIAGNOSTIC DATA: Potassium 3.4, which has been replaced. BUN and creatinine are 17 and 0.6. White count 16.8, hemoglobin and hematocrit 12.9 and 38.2 with a platelet count of 99,000. INR is 2.67. A ST, ALT 51 and 57. Initial troponin 0.04, repeat is 0.10. Chest x-ray reveals a normal cardiac silh ouette with clear lung elizabeth. CT scan results as noted. Electrocardiogram reveals atrial fibrillat ion with a moderate ventricular response and nonspecific ST-T abnormalities. IMPRESSION: 1. Atrial fibrillation appears likely chronic. 2. Urosepsis with altered mental status, unclear as to her baseline. 3. Status post ureteral stent placement. 4. Thrombocytopenia. RECOMMENDATIONS: Continued antibiotic therapy is advised. If she has no evidence of bleeding, antic oagulant therapy should continue. Metoprolol will be added for heart rate control. An echocardiogra m has been ordered. Further recommendations will be made based upon her response to the above and cl inical course. Thank you for this consultation. Will be happy to follow as needed. Joel Ochoa MD cc: [id number] TT: 12/10/2016 12:26:18 Confirmation # [id number] Dictation # [id number] dusty
--- NOTE | 2016-12-10 13:06 | CARD ---
APPROVED REPORT EKG Measurement Heart [id number] <Conclusion> Poor data quality, interpretation may be adversely affected Atrial fibrillation with premature ventricular or aberrantly conducted complexes Rightward axis Septal infarct, age undetermined Abnormal ECG
--- NOTE | 2016-12-10 13:24 | RAD ---
PROCEDURE: Fluoroscopy up to 1 hour HISTORY: STENT INSERTION COMPARISON: TECHNIQUE: Fluoroscopy was provided in the operating room. 27 seconds of fluoroscopy time was utilized. 8 images were submitted FINDINGS: The study shows placement of a left ureteral stent IMPRESSION: As above
--- NOTE | 2016-12-10 15:18 | CP.CCUPN ---
<Wandy Buckley - Last Filed: 12/10/16 16:26> CCU Subjective - Physician Review Subjective (Free Text): 12/10/16 15:14 Trops 0.04 --> 0.1, Pt has no chest pain, diaphoresis, N/V, dizziness Hematuria CCU Objective - Vital Signs / Intake & Output Intake and Output (Last 8hrs): Intake & Output 12/10/16 12/10/16 12/10/16 06:59 14:59 22:59 Intake Total 750 2000 Output Total 400 Balance 350 2000 Weight 200 lb Intake: IV 750 2000 Left Hand 750 Oral 0 Output: Urine 400 Urethral ([place]) 400 Other: Voiding Method Indwelling Catheter # Bowel Movements 2 - Physical Exam Head: Positive for: Atraumatic, Normocephalic Pupils: Positive for: PERRL Extroacular Muscles: Positive for: EOMI Conjunctiva: Positive for: Normal Mouth: Positive for: Moist Mucous Membranes Pharnyx: Positive for: Normal. Negative for: ERYTHEMA, EXUDATE Neck: Positive for: Normal Range of Motion Respiratory/Chest: Positive for: Clear to Auscultation, Good Air Exchange, Wheezes (RU Lobe), Rhonchi. Negative for: Respiratory Distress, Accessory Muscle Use Cardiovascular: Positive for: Normal S1, S2, Irregular Rhythm. Negative for: Murmurs Abdomen: Positive for: Normal Bowel Sounds. Negative for: Tenderness, Distention, Peritoneal Signs Back: Positive for: Normal Inspection Upper Extremity: Positive for: Normal Inspection. Negative for: Cyanosis, Edema Lower Extremity: Positive for: Edema (trace edema bilateral with nonblanching small papular rash; [place] intact, hematuria, 850cc since 7am to 3AM) Neurological: Positive for: GCS=15, CN II-XII Intact, Speech Normal Skin: Positive for: Warm, Dry, Rashes (non blanching erythematous rash to the bilateral lower extremities), Normal Color Psychiatric: Positive for: Alert, Normal Insight, Normal Concentration. Negative for: Oriented x 3 (oriented to self and place but not time) - Medications Active Medications: Active Medications Generic Name Dose Route Start Last Admin Trade Name Freq PRN Reason Stop Dose Admin Amlodipine Besylate 5 mg 12/10/16 10:00 12/10/16 10:42 Norvasc PO 5 mg QAM JAMES Administration Aspirin 81 mg 12/10/16 10:00 12/10/16 10:42 Aspirin Chewable PO 81 mg DAILY JAMES Administration Diltiazem HCl 5 mg 12/10/16 13:22 Cardizem IVP Q2 PRN HR>130 Gabapentin 300 mg 12/10/16 10:00 12/10/16 14:24 Neurontin PO 300 mg TID JAMES Administration Protocol Vancomycin HCl 1 gm in 250 mls @ 167 mls/hr 12/09/16 22:45 12/10/16 11:03 Vancomycin 1gm IVPB 167 mls/hr Q12H JAMES Administration Protocol Sodium Chloride 1,000 mls @ 125 mls/hr 12/09/16 22:45 12/10/16 14:25 Sodium Chloride 0.9% IV 125 mls/hr .Q8H JAMES Administration Meropenem 1g/NS 100mL IVPB 1 gm in 100 mls @ 100 mls/hr 12/10/16 07:15 14:24 Meropenem 1g/Ns 100ml Ivpb IVPB 12/17/16 07:16 100 mls/hr Q8 JAMES Administration Protocol Metoprolol Tartrate 25 mg 12/10/16 17:00 Lopressor PO BRKDIN JAMES Pantoprazole Sodium 40 mg 12/10/16 10:00 12/10/16 10:41 Protonix Inj IVP 40 mg DAILY JAMES Administration Potassium Chloride 20 meq 12/10/16 10:00 12/10/16 10:42 K-Dur 20 Meq Er Tab PO 20 meq DAILY JAMES Administration - Patient Studies Lab Studies: Lab Studies 12/10/16 12/10/16 12/10/16 Range/Units 10:46 07:30 06:00 WBC (4.5-11.0) 10^3/ul RBC (3.5-6.1) 10^6/uL Hgb (12.0-16.0) gm/dL Hct (36.0-48.0) % MCV (80.0-105.0) fL MCH (25.0-35.0) pg MCHC (31.0-37.0) g/dl RDW (11.5-14.5) % Plt Count (120.0-450.0) 10^3/uL Manual Plt Count (120-450) K/mm3 MPV (7.0-11.0) fl Neutrophils % (Manual) (50.0-70.0) % Band Neutrophils % (0-2) % Lymphocytes % (Manual) (22.0-35.0) % Atypical Lymphs % (0.0-0.0) % Monocytes % (Manual) (1.0-6.0) % Platelet Evaluation (NORMAL) Large Platelets Hypochromasia Anisocytosis (manual) Ovalocytes PT (9.9-11.8) Seconds INR (0.93-1.08) pO2 27 L (30-55) mm/Hg VBG pH 7.39 (7.32-7.43) VBG pCO2 41.0 (40-60) VBG HCO3 24.8 (21-28) mmol/l VBG Total CO2 26.1 (22-28) mmol.L VBG O2 Sat (Calc) 59.5 (40-65) % VBG Base Excess -0.2 L (0.0-2.0) mmol/L VBG Potassium 3.4 L (3.6-5.2) mmol/L Sodium 137.0 139 (132-148) mmol/L Chloride 108.0 H 102 (98-107) mmol/L Glucose 120 H (65-105) mg/dl Lactate 2.6 H (0.7-2.1) mmol/L FiO2 21.0 % Potassium 3.4 L (3.6-5.0) mmol/L Carbon Dioxide 25 (21-33) mmol/L Anion Gap 15 (10-20) BUN 17 (7-21) mg/dL Creatinine 0.6 (0.5-1.4) mg/dL Est GFR ( Amer) > 60 Est GFR (Non-Af Amer) > 60 Random Glucose 104 (70-110) mg/dL Calcium 9.1 (8.4-10.5) mg/dL Phosphorus 3.0 (2.5-4.5) mg/dL Magnesium 1.6 L (1.7-2.2) mg/dL Total Bilirubin 1.5 H (0.2-1.3) mg/dL Direct Bilirubin 0.9 H (0.0-0.4) mg/dL AST 51 H (15-39) U/L ALT 57 H (7-56) U/L Alkaline Phosphatase 80 (38-133) U/L Lactate Dehydrogenase 714 H (333-699) U/L Total Creatine Kinase 280 H (35-230) U/L CK-MB (CK-2) 3.7 H (0.0-3.6) ng/mL CK-MB (CK-2) % Cancelled Troponin I 0.10 D ng/mL Total Protein 7.3 (5.8-8.3) g/dL Albumin 3.8 (3.0-4.8) g/dL Globulin 3.6 gm/dL Albumin/Globulin Ratio 1.0 L (1.1-1.8) Procalcitonin (0.19-0.49) NG/ML Venous Blood Potassium 3.4 L (3.6-5.2) mmol/L 12/10/16 12/10/16 12/10/16 Range/Units 05:30 05:30 05:30 WBC 16.8 H (4.5-11.0) 10^3/ul RBC 4.25 (3.5-6.1) 10^6/uL Hgb 12.9 (12.0-16.0) gm/dL Hct 38.2 (36.0-48.0) % MCV 89.9 (80.0-105.0) fL MCH 30.4 (25.0-35.0) pg MCHC 33.8 (31.0-37.0) g/dl RDW 15.8 H (11.5-14.5) % Plt Count 99 L (120.0-450.0) 10^3/uL Manual Plt Count 110 L (120-450) K/mm3 MPV 10.9 (7.0-11.0) fl Neutrophils % (Manual) 80 H (50.0-70.0) % Band Neutrophils % 11 H* (0-2) % Lymphocytes % (Manual) 4 L (22.0-35.0) % Atypical Lymphs % 1 H (0.0-0.0) % Monocytes % (Manual) 4 (1.0-6.0) % Platelet Evaluation Normal (NORMAL) Large Platelets Present Hypochromasia Slight Anisocytosis (manual) 1+ Ovalocytes Slight PT (9.9-11.8) Seconds INR (0.93-1.08) pO2 23 L (30-55) mm/Hg VBG pH 7.34 (7.32-7.43) VBG pCO2 45.0 (40-60) VBG HCO3 24.3 (21-28) mmol/l VBG Total CO2 25.7 (22-28) mmol.L VBG O2 Sat (Calc) 49.4 (40-65) % VBG Base Excess -1.7 L (0.0-2.0) mmol/L VBG Potassium 3.4 L (3.6-5.2) mmol/L Sodium 138.0 (132-148) mmol/L Chloride 107.0 (98-107) mmol/L Glucose 106 H (65-105) mg/dl Lactate 2.6 H (0.7-2.1) mmol/L FiO2 21.0 % Potassium (3.6-5.0) mmol/L Carbon Dioxide (21-33) mmol/L Anion Gap (10-20) BUN (7-21) mg/dL Creatinine (0.5-1.4) mg/dL Est GFR ( Amer) Est GFR (Non-Af Amer) Random Glucose (70-110) mg/dL Calcium (8.4-10.5) mg/dL Phosphorus (2.5-4.5) mg/dL Magnesium (1.7-2.2) mg/dL Total Bilirubin (0.2-1.3) mg/dL Direct Bilirubin (0.0-0.4) mg/dL AST (15-39) U/L ALT (7-56) U/L Alkaline Phosphatase (38-133) U/L Lactate Dehydrogenase (333-699) U/L Total Creatine Kinase (35-230) U/L CK-MB (CK-2) (0.0-3.6) ng/mL CK-MB (CK-2) % Troponin I ng/mL Total Protein (5.8-8.3) g/dL Albumin (3.0-4.8) g/dL Globulin gm/dL Albumin/Globulin Ratio (1.1-1.8) Procalcitonin 34.71 H (0.19-0.49) NG/ML Venous Blood Potassium 3.4 L (3.6-5.2) mmol/L 12/10/16 12/09/16 Range/Units 05:30 23:05 WBC (4.5-11.0) 10^3/ul RBC (3.5-6.1) 10^6/uL Hgb (12.0-16.0) gm/dL Hct (36.0-48.0) % MCV (80.0-105.0) fL MCH (25.0-35.0) pg MCHC (31.0-37.0) g/dl RDW (11.5-14.5) % Plt Count (120.0-450.0) 10^3/uL Manual Plt Count (120-450) K/mm3 MPV (7.0-11.0) fl Neutrophils % (Manual) (50.0-70.0) % Band Neutrophils % (0-2) % Lymphocytes % (Manual) (22.0-35.0) % Atypical Lymphs % (0.0-0.0) % Monocytes % (Manual) (1.0-6.0) % Platelet Evaluation (NORMAL) Large Platelets Hypochromasia Anisocytosis (manual) Ovalocytes PT 28.8 H (9.9-11.8) Seconds INR 2.67 H (0.93-1.08) pO2 189 H (30-55) mm/Hg VBG pH 7.42 (7.32-7.43) VBG pCO2 31.0 L (40-60) VBG HCO3 20.1 L (21-28) mmol/l VBG Total CO2 21.1 L (22-28) mmol.L VBG O2 Sat (Calc) 99.6 H (40-65) % VBG Base Excess -3.4 L (0.0-2.0) mmol/L VBG Potassium 3.9 (3.6-5.2) mmol/L Sodium 135.0 (132-148) mmol/L Chloride 107.0 (98-107) mmol/L Glucose 128 H (65-105) mg/dl Lactate 3.9 H (0.7-2.1) mmol/L FiO2 21.0 % Potassium (3.6-5.0) mmol/L Carbon Dioxide (21-33) mmol/L Anion Gap (10-20) BUN (7-21) mg/dL Creatinine (0.5-1.4) mg/dL Est GFR ( Amer) Est GFR (Non-Af Amer) Random Glucose (70-110) mg/dL Calcium (8.4-10.5) mg/dL Phosphorus (2.5-4.5) mg/dL Magnesium (1.7-2.2) mg/dL Total Bilirubin (0.2-1.3) mg/dL Direct Bilirubin (0.0-0.4) mg/dL AST (15-39) U/L ALT (7-56) U/L Alkaline Phosphatase (38-133) U/L Lactate Dehydrogenase (333-699) U/L Total Creatine Kinase (35-230) U/L CK-MB (CK-2) (0.0-3.6) ng/mL CK-MB (CK-2) % Troponin I ng/mL Total Protein (5.8-8.3) g/dL Albumin (3.0-4.8) g/dL Globulin gm/dL Albumin/Globulin Ratio (1.1-1.8) Procalcitonin (0.19-0.49) NG/ML Venous Blood Potassium 3.9 (3.6-5.2) mmol/L Laboratory Results - last 24 hr 12/09/16 12/10/16 12/10/16 23:05 05:30 05:30 WBC RBC Hgb Hct MCV MCH MCHC RDW Plt Count Manual Plt Count MPV Neutrophils % (Manual) Band Neutrophils % Lymphocytes % (Manual) Atypical Lymphs % Monocytes % (Manual) Platelet Evaluation Large Platelets Hypochromasia Anisocytosis (manual) Ovalocytes PT 28.8 H INR 2.67 H pO2 189 H 23 L VBG pH 7.42 7.34 VBG pCO2 31.0 L 45.0 VBG HCO3 20.1 L 24.3 VBG Total CO2 21.1 L 25.7 VBG O2 Sat (Calc) 99.6 H 49.4 VBG Base Excess -3.4 L -1.7 L VBG Potassium 3.9 3.4 L Sodium 135.0 138.0 Chloride 107.0 107.0 Glucose 128 H 106 H Lactate 3.9 H 2.6 H FiO2 21.0 21.0 Potassium Carbon Dioxide Anion Gap BUN Creatinine Est GFR ( Amer) Est GFR (Non-Af Amer) Random Glucose Calcium Phosphorus Magnesium Total Bilirubin Direct Bilirubin AST ALT Alkaline Phosphatase Lactate Dehydrogenase Total Creatine Kinase CK-MB (CK-2) CK-MB (CK-2) % Troponin I Total Protein Albumin Globulin Albumin/Globulin Ratio Procalcitonin Venous Blood Potassium 3.9 3.4 L 12/10/16 12/10/16 12/10/16 05:30 05:30 06:00 WBC 16.8 H RBC 4.25 Hgb 12.9 Hct 38.2 MCV 89.9 MCH 30.4 MCHC 33.8 RDW 15.8 H Plt Count 99 L Manual Plt Count 110 L MPV 10.9 Neutrophils % (Manual) 80 H Band Neutrophils % 11 H* Lymphocytes % (Manual) 4 L Atypical Lymphs % 1 H Monocytes % (Manual) 4 Platelet Evaluation Normal Large Platelets Present Hypochromasia Slight Anisocytosis (manual) 1+ Ovalocytes Slight PT INR pO2 VBG pH VBG pCO2 VBG HCO3 VBG Total CO2 VBG O2 Sat (Calc) VBG Base Excess VBG Potassium Sodium 139 Chloride 102 Glucose Lactate FiO2 Potassium 3.4 L Carbon Dioxide 25 Anion Gap 15 BUN 17 Creatinine 0.6 Est GFR ( Amer) > 60 Est GFR (Non-Af Amer) > 60 Random Glucose 104 Calcium 9.1 Phosphorus 3.0 Magnesium 1.6 L Total Bilirubin 1.5 H Direct Bilirubin AST 51 H ALT 57 H Alkaline Phosphatase 80 Lactate Dehydrogenase Total Creatine Kinase CK-MB (CK-2) CK-MB (CK-2) % Troponin I Total Protein 7.3 Albumin 3.8 Globulin 3.6 Albumin/Globulin Ratio 1.0 L Procalcitonin 34.71 H Venous Blood Potassium 12/10/16 12/10/16 07:30 10:46 WBC RBC Hgb Hct MCV MCH MCHC RDW Plt Count Manual Plt Count MPV Neutrophils % (Manual) Band Neutrophils % Lymphocytes % (Manual) Atypical Lymphs % Monocytes % (Manual) Platelet Evaluation Large Platelets Hypochromasia Anisocytosis (manual) Ovalocytes PT INR pO2 27 L VBG pH 7.39 VBG pCO2 41.0 VBG HCO3 24.8 VBG Total CO2 26.1 VBG O2 Sat (Calc) 59.5 VBG Base Excess -0.2 L VBG Potassium 3.4 L Sodium 137.0 Chloride 108.0 H Glucose 120 H Lactate 2.6 H FiO2 21.0 Potassium Carbon Dioxide Anion Gap BUN Creatinine Est GFR ( Amer) Est GFR (Non-Af Amer) Random Glucose Calcium Phosphorus Magnesium Total Bilirubin Direct Bilirubin 0.9 H AST ALT Alkaline Phosphatase Lactate Dehydrogenase 714 H Total Creatine Kinase 280 H CK-MB (CK-2) 3.7 H CK-MB (CK-2) % Cancelled Troponin I 0.10 D Total Protein Albumin Globulin Albumin/Globulin Ratio Procalcitonin Venous Blood Potassium 3.4 L EKG/Cardiology Studies: Cardiology / EKG Studies 12/10/16 14:47 EKG [ELECTROCARDIOGRAM] Stat Comment: Reason For Exam: trops increase Fingerstick Blood Sugar Results: 87 Critical Care Progress Note - Nutrition Nutrition: Nutrition Category Date Time Status Liquid Diet [DIET] Diets 12/10/16 Lunch Ordered Assessment/Plan - Assessment and Plan (Free Text) Plan: 81F with Hx of A-fib on coumadin, CAD with 2 stents, L sided pressure ulcer on buttock due to prolong laying in bed in the past 2 weeks, came to ED after daughter found the pt screaming uncontrollably at home and confused. At baseline , Pt is AAOx3 and ambulate independently with walker. In the prior 2 weeks, pt did not feel well and was bed bound x 2 weeks, developed pressure ulcers prior to ED arrival. On arrival at ED, pt is septic, febrile. CT showed L uerteral calculus with mild hydroureternephrosis. UTI was positive for infection. Pt had a L ureteral stent placement. POD#0. Pt came to ICU post-op. Pt has an infection that triggers rapid a-fib, delirium. New onset wheezes post-op. T max 101.7 rectal at 3pm today. Neuro - mentation improves with delirium. - Haldol PRN; environmental cueing - HOB to 30 degrees - CT brain negative for acute edema or bleed Cardio - A-fib at 110-120s. If HR sustained above 130, Cardizem PRN - INR therapeutic. - Continue coumadin 2 tonight - Trop 0.04 --> 0.1, likely MD type 2, suspected NSTEMI - ASA 81mg PO daily Pulm - New onset wheeze and poss. R upper lobe PNA - O2 via NC PRN - Target SaO2 >92% - CXR AM - no active disease - Duoneb q6, q3 PRN - inspiratory spirometry, flutter valve, Renal - Mild cystitis vs underdistention. - Hematuria. U/O adequate, Hb stable - NS@125 GI - CT abdomen pelvis: Probable cirrhosis. - CLD with thickener pending swallow eval T bili 1.4, Direct bili is high AST 70 ALT 60 ALP 100 LDH 715 amylase 42 Lipase 19 US abdomen pelvis reviewed: No acute findings. Endo - target euglycemic ID - Merrem & Vancomycin - sources of infection: Skin (pressure ulcer), lung (PNA?), blood (G-bacteremia) Skin - pressure ulcer, stage 2 - air mattress, wound care referral, turn q2h Heme - INR therapeutic Musculosketal - Fall precautions - Home med: Gabapentin as per Dr. Lazo GI/DVT ppx - SCDs - Protonix Dispo Admit to ICU QS Q4H PO care Q4H S/R/D/w Dr. Soraida Rodriguez - Date & Time Date: 12/10/16 Time: 15:15 <Michael OSUNA,Kelly H - Last Filed: 12/10/16 17:24> CCU Objective - Vital Signs / Intake & Output Intake and Output (Last 8hrs): Intake & Output 12/10/16 12/10/16 12/10/16 06:59 14:59 22:59 Intake Total 750 2000 Output Total 400 Balance 350 2000 Weight 200 lb Intake: IV 750 2000 Left Hand 750 Oral 0 Output: Urine 400 Urethral ([place]) 400 Other: Voiding Method Indwelling Catheter # Bowel Movements 2 - Medications Active Medications: Active Medications Generic Name Dose Route Start Last Admin Trade Name Freq PRN Reason Stop Dose Admin Acetaminophen 650 mg 12/10/16 15:39 12/10/16 15:54 Tylenol 325mg Tab PO 650 mg Q4H PRN Administration Fever >100.4 F Albuterol/Ipratropium 3 ml 12/10/16 20:00 Duoneb 3 Mg/0.5 Mg (3 Ml) Ud IH [id number] JAMES Albuterol/Ipratropium 3 ml 12/10/16 16:10 Duoneb 3 Mg/0.5 Mg (3 Ml) Ud IH Q3H PRN Shortness of Breath Amlodipine Besylate 5 mg 12/10/16 10:00 12/10/16 10:42 Norvasc PO 5 mg QAM JAMES Administration Aspirin 81 mg 12/10/16 10:00 12/10/16 10:42 Aspirin Chewable PO 81 mg DAILY JAMES Administration Diltiazem HCl 5 mg 12/10/16 13:22 Cardizem IVP Q2 PRN HR>130 Gabapentin 300 mg 12/10/16 10:00 12/10/16 14:24 Neurontin PO 300 mg TID JAMES Administration Protocol Vancomycin HCl 1 gm in 250 mls @ 167 mls/hr 12/09/16 22:45 12/10/16 11:03 Vancomycin 1gm IVPB 167 mls/hr Q12H JAMES Administration Protocol Sodium Chloride 1,000 mls @ 125 mls/hr 12/09/16 22:45 12/10/16 14:25 Sodium Chloride 0.9% IV 125 mls/hr .Q8H JAMES Administration Meropenem 1g/NS 100mL IVPB 1 gm in 100 mls @ 100 mls/hr 12/10/16 07:15 14:24 Meropenem 1g/Ns 100ml Ivpb IVPB 12/17/16 07:16 100 mls/hr Q8 JAMES Administration Protocol Metoprolol Tartrate 25 mg 12/10/16 17:00 Lopressor PO BRKDIN JAMES Pantoprazole Sodium 40 mg 12/10/16 10:00 12/10/16 10:41 Protonix Inj IVP 40 mg DAILY JAMES Administration Potassium Chloride 20 meq 12/10/16 10:00 12/10/16 10:42 K-Dur 20 Meq Er Tab PO 20 meq DAILY JAMES Administration - Patient Studies Lab Studies: Lab Studies 12/10/16 12/10/16 12/10/16 Range/Units 10:46 07:30 06:00 WBC (4.5-11.0) 10^3/ul RBC (3.5-6.1) 10^6/uL Hgb (12.0-16.0) gm/dL Hct (36.0-48.0) % MCV (80.0-105.0) fL MCH (25.0-35.0) pg MCHC (31.0-37.0) g/dl RDW (11.5-14.5) % Plt Count (120.0-450.0) 10^3/uL Manual Plt Count (120-450) K/mm3 MPV (7.0-11.0) fl Neutrophils % (Manual) (50.0-70.0) % Band Neutrophils % (0-2) % Lymphocytes % (Manual) (22.0-35.0) % Atypical Lymphs % (0.0-0.0) % Monocytes % (Manual) (1.0-6.0) % Platelet Evaluation (NORMAL) Large Platelets Hypochromasia Anisocytosis (manual) Ovalocytes PT (9.9-11.8) Seconds INR (0.93-1.08) pO2 27 L (30-55) mm/Hg VBG pH 7.39 (7.32-7.43) VBG pCO2 41.0 (40-60) VBG HCO3 24.8 (21-28) mmol/l VBG Total CO2 26.1 (22-28) mmol.L VBG O2 Sat (Calc) 59.5 (40-65) % VBG Base Excess -0.2 L (0.0-2.0) mmol/L VBG Potassium 3.4 L (3.6-5.2) mmol/L Sodium 137.0 139 (132-148) mmol/L Chloride 108.0 H 102 (98-107) mmol/L Glucose 120 H (65-105) mg/dl Lactate 2.6 H (0.7-2.1) mmol/L FiO2 21.0 % Potassium 3.4 L (3.6-5.0) mmol/L Carbon Dioxide 25 (21-33) mmol/L Anion Gap 15 (10-20) BUN 17 (7-21) mg/dL Creatinine 0.6 (0.5-1.4) mg/dL Est GFR ( Amer) > 60 Est GFR (Non-Af Amer) > 60 Random Glucose 104 (70-110) mg/dL Calcium 9.1 (8.4-10.5) mg/dL Phosphorus 3.0 (2.5-4.5) mg/dL Magnesium 1.6 L (1.7-2.2) mg/dL Total Bilirubin 1.5 H (0.2-1.3) mg/dL Direct Bilirubin 0.9 H (0.0-0.4) mg/dL AST 51 H (15-39) U/L ALT 57 H (7-56) U/L Alkaline Phosphatase 80 (38-133) U/L Lactate Dehydrogenase 714 H (333-699) U/L Total Creatine Kinase 280 H (35-230) U/L CK-MB (CK-2) 3.7 H (0.0-3.6) ng/mL CK-MB (CK-2) % Cancelled Troponin I 0.10 D ng/mL Total Protein 7.3 (5.8-8.3) g/dL Albumin 3.8 (3.0-4.8) g/dL Globulin 3.6 gm/dL Albumin/Globulin Ratio 1.0 L (1.1-1.8) Procalcitonin (0.19-0.49) NG/ML Venous Blood Potassium 3.4 L (3.6-5.2) mmol/L 12/10/16 12/10/16 12/10/16 Range/Units 05:30 05:30 05:30 WBC 16.8 H (4.5-11.0) 10^3/ul RBC 4.25 (3.5-6.1) 10^6/uL Hgb 12.9 (12.0-16.0) gm/dL Hct 38.2 (36.0-48.0) % MCV 89.9 (80.0-105.0) fL MCH 30.4 (25.0-35.0) pg MCHC 33.8 (31.0-37.0) g/dl RDW 15.8 H (11.5-14.5) % Plt Count 99 L (120.0-450.0) 10^3/uL Manual Plt Count 110 L (120-450) K/mm3 MPV 10.9 (7.0-11.0) fl Neutrophils % (Manual) 80 H (50.0-70.0) % Band Neutrophils % 11 H* (0-2) % Lymphocytes % (Manual) 4 L (22.0-35.0) % Atypical Lymphs % 1 H (0.0-0.0) % Monocytes % (Manual) 4 (1.0-6.0) % Platelet Evaluation Normal (NORMAL) Large Platelets Present Hypochromasia Slight Anisocytosis (manual) 1+ Ovalocytes Slight PT (9.9-11.8) Seconds INR (0.93-1.08) pO2 23 L (30-55) mm/Hg VBG pH 7.34 (7.32-7.43) VBG pCO2 45.0 (40-60) VBG HCO3 24.3 (21-28) mmol/l VBG Total CO2 25.7 (22-28) mmol.L VBG O2 Sat (Calc) 49.4 (40-65) % VBG Base Excess -1.7 L (0.0-2.0) mmol/L VBG Potassium 3.4 L (3.6-5.2) mmol/L Sodium 138.0 (132-148) mmol/L Chloride 107.0 (98-107) mmol/L Glucose 106 H (65-105) mg/dl Lactate 2.6 H (0.7-2.1) mmol/L FiO2 21.0 % Potassium (3.6-5.0) mmol/L Carbon Dioxide (21-33) mmol/L Anion Gap (10-20) BUN (7-21) mg/dL Creatinine (0.5-1.4) mg/dL Est GFR ( Amer) Est GFR (Non-Af Amer) Random Glucose (70-110) mg/dL Calcium (8.4-10.5) mg/dL Phosphorus (2.5-4.5) mg/dL Magnesium (1.7-2.2) mg/dL Total Bilirubin (0.2-1.3) mg/dL Direct Bilirubin (0.0-0.4) mg/dL AST (15-39) U/L ALT (7-56) U/L Alkaline Phosphatase (38-133) U/L Lactate Dehydrogenase (333-699) U/L Total Creatine Kinase (35-230) U/L CK-MB (CK-2) (0.0-3.6) ng/mL CK-MB (CK-2) % Troponin I ng/mL Total Protein (5.8-8.3) g/dL Albumin (3.0-4.8) g/dL Globulin gm/dL Albumin/Globulin Ratio (1.1-1.8) Procalcitonin 34.71 H (0.19-0.49) NG/ML Venous Blood Potassium 3.4 L (3.6-5.2) mmol/L 12/10/16 12/09/16 Range/Units 05:30 23:05 WBC (4.5-11.0) 10^3/ul RBC (3.5-6.1) 10^6/uL Hgb (12.0-16.0) gm/dL Hct (36.0-48.0) % MCV (80.0-105.0) fL MCH (25.0-35.0) pg MCHC (31.0-37.0) g/dl RDW (11.5-14.5) % Plt Count (120.0-450.0) 10^3/uL Manual Plt Count (120-450) K/mm3 MPV (7.0-11.0) fl Neutrophils % (Manual) (50.0-70.0) % Band Neutrophils % (0-2) % Lymphocytes % (Manual) (22.0-35.0) % Atypical Lymphs % (0.0-0.0) % Monocytes % (Manual) (1.0-6.0) % Platelet Evaluation (NORMAL) Large Platelets Hypochromasia Anisocytosis (manual) Ovalocytes PT 28.8 H (9.9-11.8) Seconds INR 2.67 H (0.93-1.08) pO2 189 H (30-55) mm/Hg VBG pH 7.42 (7.32-7.43) VBG pCO2 31.0 L (40-60) VBG HCO3 20.1 L (21-28) mmol/l VBG Total CO2 21.1 L (22-28) mmol.L VBG O2 Sat (Calc) 99.6 H (40-65) % VBG Base Excess -3.4 L (0.0-2.0) mmol/L VBG Potassium 3.9 (3.6-5.2) mmol/L Sodium 135.0 (132-148) mmol/L Chloride 107.0 (98-107) mmol/L Glucose 128 H (65-105) mg/dl Lactate 3.9 H (0.7-2.1) mmol/L FiO2 21.0 % Potassium (3.6-5.0) mmol/L Carbon Dioxide (21-33) mmol/L Anion Gap (10-20) BUN (7-21) mg/dL Creatinine (0.5-1.4) mg/dL Est GFR ( Amer) Est GFR (Non-Af Amer) Random Glucose (70-110) mg/dL Calcium (8.4-10.5) mg/dL Phosphorus (2.5-4.5) mg/dL Magnesium (1.7-2.2) mg/dL Total Bilirubin (0.2-1.3) mg/dL Direct Bilirubin (0.0-0.4) mg/dL AST (15-39) U/L ALT (7-56) U/L Alkaline Phosphatase (38-133) U/L Lactate Dehydrogenase (333-699) U/L Total Creatine Kinase (35-230) U/L CK-MB (CK-2) (0.0-3.6) ng/mL CK-MB (CK-2) % Troponin I ng/mL Total Protein (5.8-8.3) g/dL Albumin (3.0-4.8) g/dL Globulin gm/dL Albumin/Globulin Ratio (1.1-1.8) Procalcitonin (0.19-0.49) NG/ML Venous Blood Potassium 3.9 (3.6-5.2) mmol/L Laboratory Results - last 24 hr 12/09/16 12/10/16 12/10/16 23:05 05:30 05:30 WBC RBC Hgb Hct MCV MCH MCHC RDW Plt Count Manual Plt Count MPV Neutrophils % (Manual) Band Neutrophils % Lymphocytes % (Manual) Atypical Lymphs % Monocytes % (Manual) Platelet Evaluation Large Platelets Hypochromasia Anisocytosis (manual) Ovalocytes PT 28.8 H INR 2.67 H pO2 189 H 23 L VBG pH 7.42 7.34 VBG pCO2 31.0 L 45.0 VBG HCO3 20.1 L 24.3 VBG Total CO2 21.1 L 25.7 VBG O2 Sat (Calc) 99.6 H 49.4 VBG Base Excess -3.4 L -1.7 L VBG Potassium 3.9 3.4 L Sodium 135.0 138.0 Chloride 107.0 107.0 Glucose 128 H 106 H Lactate 3.9 H 2.6 H FiO2 21.0 21.0 Potassium Carbon Dioxide Anion Gap BUN Creatinine Est GFR ( Amer) Est GFR (Non-Af Amer) Random Glucose Calcium Phosphorus Magnesium Total Bilirubin Direct Bilirubin AST ALT Alkaline Phosphatase Lactate Dehydrogenase Total Creatine Kinase CK-MB (CK-2) CK-MB (CK-2) % Troponin I Total Protein Albumin Globulin Albumin/Globulin Ratio Procalcitonin Venous Blood Potassium 3.9 3.4 L 12/10/16 12/10/16 12/10/16 05:30 05:30 06:00 WBC 16.8 H RBC 4.25 Hgb 12.9 Hct 38.2 MCV 89.9 MCH 30.4 MCHC 33.8 RDW 15.8 H Plt Count 99 L Manual Plt Count 110 L MPV 10.9 Neutrophils % (Manual) 80 H Band Neutrophils % 11 H* Lymphocytes % (Manual) 4 L Atypical Lymphs % 1 H Monocytes % (Manual) 4 Platelet Evaluation Normal Large Platelets Present Hypochromasia Slight Anisocytosis (manual) 1+ Ovalocytes Slight PT INR pO2 VBG pH VBG pCO2 VBG HCO3 VBG Total CO2 VBG O2 Sat (Calc) VBG Base Excess VBG Potassium Sodium 139 Chloride 102 Glucose Lactate FiO2 Potassium 3.4 L Carbon Dioxide 25 Anion Gap 15 BUN 17 Creatinine 0.6 Est GFR ( Amer) > 60 Est GFR (Non-Af Amer) > 60 Random Glucose 104 Calcium 9.1 Phosphorus 3.0 Magnesium 1.6 L Total Bilirubin 1.5 H Direct Bilirubin AST 51 H ALT 57 H Alkaline Phosphatase 80 Lactate Dehydrogenase Total Creatine Kinase CK-MB (CK-2) CK-MB (CK-2) % Troponin I Total Protein 7.3 Albumin 3.8 Globulin 3.6 Albumin/Globulin Ratio 1.0 L Procalcitonin 34.71 H Venous Blood Potassium 12/10/16 12/10/16 07:30 10:46 WBC RBC Hgb Hct MCV MCH MCHC RDW Plt Count Manual Plt Count MPV Neutrophils % (Manual) Band Neutrophils % Lymphocytes % (Manual) Atypical Lymphs % Monocytes % (Manual) Platelet Evaluation Large Platelets Hypochromasia Anisocytosis (manual) Ovalocytes PT INR pO2 27 L VBG pH 7.39 VBG pCO2 41.0 VBG HCO3 24.8 VBG Total CO2 26.1 VBG O2 Sat (Calc) 59.5 VBG Base Excess -0.2 L VBG Potassium 3.4 L Sodium 137.0 Chloride 108.0 H Glucose 120 H Lactate 2.6 H FiO2 21.0 Potassium Carbon Dioxide Anion Gap BUN Creatinine Est GFR ( Amer) Est GFR (Non-Af Amer) Random Glucose Calcium Phosphorus Magnesium Total Bilirubin Direct Bilirubin 0.9 H AST ALT Alkaline Phosphatase Lactate Dehydrogenase 714 H Total Creatine Kinase 280 H CK-MB (CK-2) 3.7 H CK-MB (CK-2) % Cancelled Troponin I 0.10 D Total Protein Albumin Globulin Albumin/Globulin Ratio Procalcitonin Venous Blood Potassium 3.4 L EKG/Cardiology Studies: Cardiology / EKG Studies 12/10/16 14:47 EKG [ELECTROCARDIOGRAM] Stat Comment: Reason For Exam: trops increase Critical Care Progress Note - Nutrition Nutrition: Nutrition Category Date Time Status Liquid Diet [DIET] Diets 12/10/16 Lunch Ordered Attending/Attestation - Attestation I have personally seen and examined this patient.: Yes I have fully participated in the care of the patient.: Yes I have reviewed all pertinent clinical information: Yes Notes (Text): 12/10/16 17:19 81 y/o F admitted to the ICU secondary to sepsis and possible Pyelonephritis and found to have Gram - rods. Last night Urology placed a uretral stent , no pus found. On empiric abx to cover Gram -. CX pending bacteria Afib , HR 100-125, on B blockers and prn cardizem . INR> 2. Coumadin can be restarted. AMS stable, protecting airway. Urology following as well as ID. PT.OT needed , diet resumed as tolerated cc time 55 min
[2016-12-10] MEDS ORDERED: Albuterol-Ipratrop 3 mg / 0.5 (3 ml) UD IH PRN (16:10)
[2016-12-10 17:25] LABS: VENOUS BLOOD GAS BASE EXCESS -2.3 mmol/L (0.0-2.0); VENOUS BLOOD PH 7.38 (7.32-7.43)
[2016-12-10 18:07] LABS: TROPONIN I 0.31 ng/mL
--- NOTE | 2016-12-10 18:12 | CP.PCM.CON ---
History of Present Illness - History of Present Illness History of Present Illness: 81 year old female with PMH of herpes zoster on the left side of the neck and left ear, CAD S/P PCI, HTN, dyslipidemia was brought in to [facility] because of lethargy and generalized weakness. She has also been complaining of nausea and increased urinary frequency. She denies fever or chills, no headache or dizziness, no abdominal pain, no chest pain, no blurring of vision, no cough or colds, no diarrhea, no SOB. In the ED, she was noted to have left renal stone and a left ureteral stent was placed today. She is also noted to have gram negative bacilli in the blood. Infectious diseases consult is requested to further evaluate and manage. Review of Systems - Review of Systems All systems: reviewed and no additional remarkable complaints except (as per HPI ) Past Patient History - Infectious Disease Hx of Infectious Diseases: None - Past Social History Smoking Status: Unknown If Ever Smoked - CARDIAC Hx Cardiac Disorders: Yes Hx Hypertension: Yes - PULMONARY Hx Respiratory Disorders: No - NEUROLOGICAL Hx Neurological Disorder: Yes Hx Dizziness: Yes - HEENT Hx HEENT Problems: No - RENAL Hx Chronic Kidney Disease: No - ENDOCRINE/METABOLIC Hx Endocrine Disorders: No - HEMATOLOGICAL/ONCOLOGICAL Hx Blood Disorders: Yes Hx Shingles: Yes - INTEGUMENTARY Hx Dermatological Problems: Yes Other/Comment: Shingles on left side of neck on 04/14/16 - MUSCULOSKELETAL/RHEUMATOLOGICAL Hx Falls: Yes - GASTROINTESTINAL Hx Gastrointestinal Disorders: No - GENITOURINARY/GYNECOLOGICAL Hx Genitourinary Disorders: No - PSYCHIATRIC Hx Psychophysiologic Disorder: No Hx Emotional Abuse: No Hx Physical Abuse: No - SURGICAL HISTORY Hx Surgeries: Yes Hx Coronary Stent: Yes (X2) - ANESTHESIA Hx Anesthesia Reactions: No Hx Malignant Hyperthermia: No Meds Allergies/Adverse Reactions: Allergies Allergy/AdvReac Type Severity Reaction Status Date / Time No Known Allergies Allergy Verified 05/12/16 03:11 - Medications Medications: Current Medications Amlodipine Besylate (Norvasc) 5 mg PO QAM JAMES Aspirin (Aspirin Chewable) 81 mg PO DAILY JAMES Gabapentin (Neurontin) 300 mg PO TID JAMES PRN Reason: Protocol Vancomycin HCl (Vancomycin 1gm) 1 gm in 250 mls @ 167 mls/hr IVPB Q12H JAMES PRN Reason: Protocol Last Admin: 12/10/16 00:56 Dose: 167 mls/hr Sodium Chloride (Sodium Chloride 0.9%) 1,000 mls @ 125 mls/hr IV .Q8H JAMES Last Admin: 12/09/16 23:57 Dose: 125 mls/hr Pantoprazole Sodium (Protonix Inj) 40 mg IVP DAILY JAMES Physical Exam - Constitutional Appears: Non-toxic, No Acute Distress - Head Exam Head Exam: NORMAL INSPECTION - ENT Exam ENT Exam: Mucous Membranes Moist - Neck Exam Neck exam: Negative for: Lymphadenopathy, Meningismus - Respiratory Exam Respiratory Exam: Decreased Breath Sounds - Cardiovascular Exam Cardiovascular Exam: +S1, +S2 - GI/Abdominal Exam GI & Abdominal Exam: Soft. absent: Tenderness Results - Vital Signs Recent Vital Signs: Last Vital Signs Temp 98.8 F 12/10/16 06:23 Pulse 128 H 12/10/16 06:30 Resp 39 H 12/10/16 06:30 BP 166/85 H 12/10/16 06:00 Pulse Ox 77 L 12/10/16 06:30 - Labs Result Diagrams: 12/10/16 05:30 12/10/16 06:00 Labs: Laboratory Results - last 24 hr 12/09/16 12/10/16 12/10/16 23:05 05:30 05:30 WBC RBC Hgb Hct MCV MCH MCHC RDW Plt Count MPV PT 28.8 H INR 2.67 H pO2 189 H 23 L VBG pH 7.42 7.34 VBG pCO2 31.0 L 45.0 VBG HCO3 20.1 L 24.3 VBG Total CO2 21.1 L 25.7 VBG O2 Sat (Calc) 99.6 H 49.4 VBG Base Excess -3.4 L -1.7 L VBG Potassium 3.9 3.4 L Sodium 135.0 138.0 Chloride 107.0 107.0 Glucose 128 H 106 H Lactate 3.9 H 2.6 H FiO2 21.0 21.0 Venous Blood Potassium 3.9 3.4 L 12/10/16 05:30 WBC 16.8 H RBC 4.25 Hgb 12.9 Hct 38.2 MCV 89.9 MCH 30.4 MCHC 33.8 RDW 15.8 H Plt Count 99 L MPV 10.9 PT INR pO2 VBG pH VBG pCO2 VBG HCO3 VBG Total CO2 VBG O2 Sat (Calc) VBG Base Excess VBG Potassium Sodium Chloride Glucose Lactate FiO2 Venous Blood Potassium Assessment & Plan - Assessment and Plan (Free Text) Plan: Assessment Sepsis secondary to gram negative bacilli bacteremia associated with UTI and left nephrolithiasis S/P left ureteral stent placement today history of urinary tract infection with E. coli history of herpes zoster on the left side of the neck and left ear and post- herpetic neuralgia CAD S/P PCI HTN dyslipidemia Plan started patient on Meropenem pending identification and sensitivities of the gram negative bacilli in the blood Will follow clinically
--- NOTE | 2016-12-10 19:00 | CARD ---
APPROVED REPORT EKG Measurement Heart [id number] <Conclusion> A fib with consecutive premature ventricular complexes and fusion complexes Rightward axis Anteroseptal infarct, age undetermined Abnormal ECG
[2016-12-10] MEDS: Albuterol-Ipratrop 3 mg / 0.5 (3 ml) UD IH SCH (21:47)
[2016-12-10 23:24] LABS: TROPONIN I 0.18 ng/mL
[2016-12-11] MEDS ORDERED: Labetalol 5 mg/ml Inj 20ML IV ONE (04:07)
[2016-12-11] MEDS: Albuterol-Ipratrop 3 mg / 0.5 (3 ml) UD IH SCH ×4 (05:10→19:55)
[2016-12-11 06:16] LABS: HEMATOCRIT 37.8 % (36.0-48.0); MEAN CELL VOLUME 90.6 fL (80.0-105.0); MEAN CORPUSCULAR HEMOGLOBIN 30.2 pg (25.0-35.0); MEAN CORPUSCULAR HGB CONC 33.3 g/dl (31.0-37.0); PLATELET COUNT 97 10^3/uL (120.0-450.0); RED CELL DISTRIBUTION WIDTH 16.4 % (11.5-14.5); WHITE BLOOD COUNT 16.7 10^3/ul (4.5-11.0)
[2016-12-11 06:21] LABS: ADD MANUAL DIFF? YES
[2016-12-11] MEDS: Meropenem 1g/NS 100mL IVPB 1 GM/100 ML PIGGYBACK IVPB SCH ×3 (06:21→21:27)
[2016-12-11] MEDS: Sodium Chloride 0.9% 1,000 ML IV SCH (06:22)
[2016-12-11 06:50] LABS: ALT/SGPT 46 U/L (7-56); AST/SGOT 41 U/L (15-39); BILIRUBIN,TOTAL 1.8 mg/dL (0.2-1.3); BLOOD UREA NITROGEN 19 mg/dL (7-21); CARBON DIOXIDE 24 mmol/L (21-33); CHLORIDE 108 mmol/L (98-107); GFR AFRICAN-AMERICAN > 60; GLUCOSE,RANDOM 108 mg/dL (70-110); MAGNESIUM 2.1 mg/dL (1.7-2.2); POTASSIUM 4.4 mmol/L (3.6-5.0); SODIUM 141 mmol/L (132-148)
[2016-12-11 07:08] LABS: ALB/GLOB RATIO 0.9 (1.1-1.8); ALKALINE PHOSPHATASE 76 U/L (38-133); CALCIUM 9.3 mg/dL (8.4-10.5); PHOSPHOROUS 2.1 mg/dL (2.5-4.5); TOTAL PROTEIN 7.6 g/dL (5.8-8.3)
[2016-12-11 07:32] LABS: ARTERIAL BLOOD GAS HCO3 17.1 mmol/L (21-28); ARTERIAL BLOOD GAS O2 CAPACITY 17.1 mL/dl (16-24); ARTERIAL BLOOD GAS O2 CONTENT 16.9 ML/dl (15-23); ARTERIAL BLOOD GAS PH 7.41 (7.35-7.45); ARTERIAL BLOOD HGB O2 SAT 97.5 % (95.0-98.0); CARBOXYHEMOGLOBIN 1.2 % (0.5-1.5); METHEMOGLOBIN 0.3 % (0.0-3.0)
[2016-12-11 07:47] LABS: TROPONIN I 0.26 ng/mL
[2016-12-11 07:52] LABS: NEUTROPHIL 85 % (50.0-70.0)
[2016-12-11 07:53] LABS: ANISOCYTOSIS SLIGHT; BAND 6 % (0-2); PLATELET ESTIMATE LOW (NORMAL)
--- NOTE | 2016-12-11 08:04 | CP.PCM.PN ---
Subjective - Date & Time of Evaluation Date of Evaluation: 12/11/16 Time of Evaluation: 07:00 - Subjective Subjective: Stable in CCU. No CP or SOB. Seems more alert. PE: Lungs: rhonchi Cor.: irreg., S1S2 Abd.: soft Ext.:mild edema Neuro.: arousable I/O= 7200/1300 Labs and ABGs noted: trop.=0.26 BC x1 + GNR Echo done: will check. Objective - Vital Signs/Intake and Output Vital Signs (last 24 hours): Temp Pulse Resp BP Pulse Ox 98.8 F 104 H 32 H 176/92 H 97 12/11/16 06:00 12/11/16 06:40 12/11/16 06:40 12/11/16 06:01 12/11/16 06:40 Intake and Output: 12/11/16 12/11/16 06:59 18:59 Intake Total 3500 Output Total 400 Balance 3100 - Medications Medications: Current Medications Acetaminophen (Tylenol 325mg Tab) 650 mg PO Q4H PRN PRN Reason: Fever >100.4 F Last Admin: 12/10/16 15:54 Dose: 650 mg Albuterol/Ipratropium (Duoneb 3 Mg/0.5 Mg (3 Ml) Ud) 3 ml IH [id number] [facility] Last Admin: 12/11/16 05:10 Dose: 3 ml Albuterol/Ipratropium (Duoneb 3 Mg/0.5 Mg (3 Ml) Ud) 3 ml IH Q3H PRN PRN Reason: Shortness of Breath Amlodipine Besylate (Norvasc) 5 mg PO QAM [facility] Last Admin: 12/10/16 10:42 Dose: 5 mg Aspirin (Aspirin Chewable) 81 mg PO DAILY [facility] Last Admin: 12/10/16 10:42 Dose: 81 mg Diltiazem HCl (Cardizem) 5 mg IVP Q2 PRN PRN Reason: HR>130 Gabapentin (Neurontin) 300 mg PO TID JAMES PRN Reason: Protocol Last Admin: 12/10/16 17:38 Dose: 300 mg Sodium Chloride (Sodium Chloride 0.9%) 1,000 mls @ 125 mls/hr IV .Q8H [facility] Last Admin: 12/11/16 06:22 Dose: 125 mls/hr Meropenem 1g/NS 100mL IVPB (Meropenem 1g/Ns 100ml Ivpb) 1 gm in 100 mls @ 100 mls/hr IVPB Q8 JAMES PRN Reason: Protocol Stop: 12/17/16 07:16 Last Admin: 12/11/16 06:21 Dose: 100 mls/hr Metoprolol Tartrate (Lopressor) 25 mg PO BRKDIN [facility] Last Admin: 12/10/16 17:38 Dose: 25 mg Pantoprazole Sodium (Protonix Inj) 40 mg IVP DAILY [facility] Last Admin: 12/10/16 10:41 Dose: 40 mg Potassium Chloride (K-Dur 20 Meq Er Tab) 20 meq PO DAILY [facility] Last Admin: 12/10/16 10:42 Dose: 20 meq - Labs Labs: 12/11/16 05:30 12/11/16 05:30 PT 28.8 Seconds (9.9-11.8) H 12/10/16 05:30 INR 2.67 (0.93-1.08) H 12/10/16 05:30 APTT 49.6 Seconds (23.7-30.8) H 12/09/16 18:45 Assessment and Plan - Assessment and Plan (Free Text) Plan: Assessment: AMS Urosepsis/renal stone with hydronephrosis, s/p ureteral stent AF HBP HLD CAD/PCI/+ trop/Possible NSTEMI Thrombocytopenia Herpes Zoster Plan: Await INR Will check echo IV diltiazem for rate contol AB, as per ID and Uro. Cautious fluids. Aim for neg balance daily. Monitor: labs, I/O, sats., cultures, etc.
--- NOTE | 2016-12-11 08:32 | RAD ---
HISTORY: wheezes COMPARISON: 12/09/2016 FINDINGS: LUNGS: Linear scar/ atelectasis mid left lung, unchanged. No pulmonary infiltrate. PLEURA: No significant pleural effusion identified, no pneumothorax apparent. CARDIOVASCULAR: Normal. OSSEOUS STRUCTURES: No significant abnormalities. VISUALIZED UPPER ABDOMEN: Normal. OTHER FINDINGS: None. IMPRESSION: No active disease.
[2016-12-11] MEDS: Potassium Chloride 20 mEq ER Tab PO SCH (09:10)
[2016-12-11 09:21] LABS: INR 2.72 (0.93-1.08)
--- NOTE | 2016-12-11 10:01 | PN ---
DATE: 12/11/2016 SUBJECTIVE: The patient is seen in bed earlier this morning in 129, bed 6. No fevers and no chills. She appeared to be comfortable. She has nasal cannula on. PHYSICAL EXAMINATION: VITAL SIGNS: Temperature is 98. Blood pressure is 170/100, respiratory rate of 32, heart rate of 10 1. HEENT: Unremarkable. NECK: Supple. LUNGS: Have decreased breath sounds. HEART: Normal S1, S2. ABDOMEN: Soft, nontender. LABORATORY EXAMINATION: Reveals the white count is down to 16,700, hemoglobin of 12, platelets of 97 . Coagulation is noted. Chemistries reveal a BUN of 19, creatinine of 0.6. Procalcitonin is 34.7. Blood cultures have gram-negative nghia in the blood and a gram-negative nghia in the urine. Review of the orders reveals the patient is on meropenem. ASSESSMENT AND PLAN: An 81-year-old female seen earlier this morning. On this admission, the patien t has sepsis with gram-negative nghia bacteremia secondary to gram-negative nghia in urine. Genitourinar y system revealed left nephrolithiasis status post left ureteral stent placement, with a history of E scherichia coli urinary tract infection, history of herpes zoster on the left side of her neck, and t he left ear, and postherpetic neuralgia. History of coronary artery disease and percutaneous coronar y intervention, and hypertension and dyslipidemia. On meropenem, awaiting for identification and sen sitivity of gram-negative nghia in the blood and the urine. Dr. Rivero's surgical operative note from yesterday was reviewed. He placed an insertion of a left ure teral stent post-cystoscopy, postop day #1 today. We will follow with you. Josh Omer MD cc: [id number] TT: 12/11/2016 10:00:24 Confirmation # [id number] Dictation # [id number]
--- NOTE | 2016-12-11 10:17 | CARD ---
APPROVED REPORT EKG Measurement Heart [id number] <Conclusion> Atrial fibrillation with rapid ventricular response with premature ventricular or aberrantly conducted complexes Rightward axis Low voltage QRS Septal infarct, age undetermined Abnormal ECG
--- NOTE | 2016-12-11 10:33 | CARD ---
APPROVED REPORT EKG Measurement Heart [id number] <Conclusion> Atrial Fibrillation with Moderate Ventricular Rate.Periods of Regularization R/O Digitalis Toxicity. Rightward axis Low voltage Q PVCs/Abberrantly Conducted Beats. Clockwise Rotation. Non Specific ST_T Changes.
[2016-12-11] MEDS ORDERED: Sodium Chloride 0.9% 1,000 ML IV SCH (12:32)
--- NOTE | 2016-12-11 13:04 | PN ---
DATE: 12/11/2016 SUBJECTIVE: The patient has no complaints of any chest pain or shortness of breath, no headaches. PHYSICAL EXAMINATION: VITAL SIGNS: Temperature is 98.8, pulse of 101, blood pressure is 176/106, respirations 30. GENERAL: The patient comfortable, in no acute distress. HEENT: Anicteric sclerae. Moist mucosa. NECK: No JVD or adenopathy. CARDIAC: S1/S2. No murmurs. No rubs. Regular. RESPIRATORY: Clear to auscultation bilaterally. No wheezes, rales, or rhonchi. Good air entry. ABDOMEN: Bowel sounds are positive, soft, nontender, and nondistended. EXTREMITIES: No edema. Has 1+ pulses. LABORATORY DATA: White count of 16.7, hemoglobin 12.6. Creatinine 0.6. ASSESSMENT: 1. Sepsis. 2. Left-sided kidney stone with hydroureter. 3. Status post left ureteral stent placement. 4. Atrial fibrillation with rapid rate. 5. Coronary artery disease. 6. Hypertension. 7. Dyslipidemia. PLAN: The patient is currently comfortable. She is septic from a urinary tract infection secondary to a kidney stone. Her urine culture showed gram-negative rods. She is on antibiotics. She is bein g followed by infectious disease. She is on IV fluids. I will decrease her IV fluids. She is going to be continued check on her blood work. She is being followed by Dr. Jimenez for her atrial fibrill ation. The patient's Coumadin has been on hold. The patient does have a significant amount of intak e. I will discontinue her IV fluids at this point. Moreno Lazo MD cc: [id number] TT: 12/11/2016 13:04:34 Confirmation # [id number] Dictation # [id number]
--- NOTE | 2016-12-11 13:18 | CP.CCUPN ---
<Wandy Buckley - Last Filed: 12/11/16 13:16> CCU Subjective - Physician Review Subjective (Free Text): 12/10/16 15:14 Trops 0.04 --> 0.1, Pt has no chest pain, diaphoresis, N/V, dizziness Hematuria 12/11/16 13:16 Labetalol given x 1 overnight for BP 198 No more delirium episode 1 BM No acute complaint CCU Objective - Vital Signs / Intake & Output Vital Signs (Last 4 hours): Vital Signs Pulse Resp BP Pulse Ox 12/11/16 12:40 105 H 31 H 92 L 12/11/16 12:30 100 H 47 H 90 L 12/11/16 12:20 102 H 34 H 88 L 12/11/16 12:10 103 H 26 H 92 L 12/11/16 12:00 95 H 33 H 167/93 H 92 L 12/11/16 11:50 100 H 36 H 90 L 12/11/16 11:40 98 H 43 H 90 L 12/11/16 11:30 96 H 30 H 91 L 12/11/16 11:20 92 H 27 H 90 L 12/11/16 11:10 95 H 27 H 90 L 12/11/16 11:00 92 H 37 H 159/82 H 90 L 12/11/16 10:50 100 H 30 H 90 L 12/11/16 10:40 101 H 40 H 91 L 12/11/16 10:38 176/106 H 12/11/16 10:37 176/106 H 12/11/16 10:30 98 H 33 H 91 L 12/11/16 10:20 97 H 30 H 91 L 12/11/16 10:10 109 H 43 H 91 L 12/11/16 10:00 104 H 29 H 178/107 H 92 L 12/11/16 09:50 113 H 31 H 99 12/11/16 09:40 108 H 43 H 97 12/11/16 09:30 111 H 33 H 98 12/11/16 09:20 108 H 33 H 98 Intake and Output (Last 8hrs): Intake & Output 12/10/16 12/11/16 12/11/16 22:59 06:59 14:59 Intake Total 2700 2500 Output Total 900 400 Balance 1800 2100 Intake: IV 2500 2500 Left Forearm 1500 Left Hand 1500 Oral 200 Output: Urine 900 400 Urethral ([place]) 900 400 Other: Voiding Method Indwelling Catheter Indwelling Catheter # Bowel Movements 1 - Physical Exam Head: Positive for: Atraumatic, Normocephalic Pupils: Positive for: PERRL Extroacular Muscles: Positive for: EOMI Conjunctiva: Positive for: Normal Mouth: Positive for: Moist Mucous Membranes Pharnyx: Positive for: Normal. Negative for: ERYTHEMA, EXUDATE Neck: Positive for: Normal Range of Motion Respiratory/Chest: Positive for: Clear to Auscultation, Good Air Exchange, Wheezes (RU, PAT Lobes), Rhonchi. Negative for: Respiratory Distress, Accessory Muscle Use Cardiovascular: Positive for: Normal S1, S2, Irregular Rhythm. Negative for: Murmurs Abdomen: Positive for: Normal Bowel Sounds. Negative for: Tenderness, Distention, Peritoneal Signs Back: Positive for: Normal Inspection Upper Extremity: Positive for: Normal Inspection. Negative for: Cyanosis, Edema Lower Extremity: Positive for: Edema (trace edema bilateral with nonblanching small papular rash; [place] intact, hematuria, 850cc since 7am to 3AM) Neurological: Positive for: GCS=15, CN II-XII Intact, Speech Normal Skin: Positive for: Warm, Dry, Rashes (non blanching erythematous rash to the bilateral lower extremities), Normal Color Psychiatric: Positive for: Alert, Normal Insight, Normal Concentration. Negative for: Oriented x 3 (oriented to self and place but not time) - Medications Active Medications: Active Medications Generic Name Dose Route Start Last Admin Trade Name Freq PRN Reason Stop Dose Admin Acetaminophen 650 mg 12/10/16 15:39 12/10/16 15:54 Tylenol 325mg Tab PO 650 mg Q4H PRN Administration Fever >100.4 F Albuterol/Ipratropium 3 ml 12/10/16 20:00 12/11/16 09:07 Duoneb 3 Mg/0.5 Mg (3 Ml) Ud IH 3 ml [id number] JAMES Administration Albuterol/Ipratropium 3 ml 12/10/16 16:10 Duoneb 3 Mg/0.5 Mg (3 Ml) Ud IH Q3H PRN Shortness of Breath Amlodipine Besylate 10 mg 12/11/16 09:40 12/11/16 10:38 Norvasc PO 10 mg QAM JAMES Administration Aspirin 81 mg 12/10/16 10:00 12/11/16 09:12 Aspirin Chewable PO 81 mg DAILY JAMES Administration Diltiazem HCl 5 mg 12/10/16 13:22 Cardizem IVP Q2 PRN HR>130 Gabapentin 300 mg 12/10/16 10:00 12/11/16 09:11 Neurontin PO 300 mg TID JAMES Administration Protocol Meropenem 1g/NS 100mL IVPB 1 gm in 100 mls @ 100 mls/hr 12/10/16 07:15 06:21 Meropenem 1g/Ns 100ml Ivpb IVPB 12/17/16 07:16 100 mls/hr Q8 JAMES Administration Protocol Vancomycin HCl 1 gm in 250 mls @ 167 mls/hr 12/11/16 13:15 Vancomycin 1gm IVPB Q12H JAMES Protocol Metoprolol Tartrate 25 mg 12/10/16 17:00 12/11/16 09:12 Lopressor PO 25 mg BRKDIN JAMES Administration Pantoprazole Sodium 40 mg 12/10/16 10:00 12/11/16 09:11 Protonix Inj IVP 40 mg DAILY JAMES Administration Potassium Chloride 20 meq 12/10/16 10:00 12/11/16 09:10 K-Dur 20 Meq Er Tab PO 20 meq DAILY JAMES Administration - Patient Studies Lab Studies: Lab Studies 12/11/16 12/11/16 12/11/16 Range/Units 09:00 07:28 05:30 WBC (4.5-11.0) 10^3/ul RBC (3.5-6.1) 10^6/uL Hgb (12.0-16.0) gm/dL Hct (36.0-48.0) % MCV (80.0-105.0) fL MCH (25.0-35.0) pg MCHC (31.0-37.0) g/dl RDW (11.5-14.5) % Plt Count (120.0-450.0) 10^3/uL MPV (7.0-11.0) fl Neutrophils % (Manual) (50.0-70.0) % Band Neutrophils % (0-2) % Lymphocytes % (Manual) (22.0-35.0) % Monocytes % (Manual) (1.0-6.0) % Platelet Evaluation (NORMAL) Anisocytosis (manual) PT 29.4 H (9.9-11.8) Seconds INR 2.72 H (0.93-1.08) APTT 53.0 H (23.7-30.8) Seconds pCO2 27 L (35-45) mm/Hg pO2 118.0 H (30-55) mm/Hg HCO3 17.1 L (21-28) mmol/L ABG pH 7.41 (7.35-7.45) ABG Total CO2 17.9 L (22-28) mmol.L ABG O2 Saturation 99.0 H (95-98) % ABG O2 Content 16.9 (15-23) ML/dl ABG Base Excess -6.2 L (-2.0-3.0) mmol/L ABG Hemoglobin 12.2 (11.7-17.4) g/dL ABG Carboxyhemoglobin 1.2 (0.5-1.5) % POC ABG HHb (Measured) 1.0 (0-5) % ABG Methemoglobin 0.3 (0.0-3.0) % ABG O2 Capacity 17.1 (16-24) mL/dl VBG pH (7.32-7.43) VBG pCO2 (40-60) VBG HCO3 (21-28) mmol/l VBG Total CO2 (22-28) mmol.L VBG O2 Sat (Calc) (40-65) % VBG Base Excess (0.0-2.0) mmol/L VBG Potassium (3.6-5.2) mmol/L Hgb O2 Saturation 97.5 (95.0-98.0) % Sodium 141 (132-148) mmol/L Chloride 108 H (98-107) mmol/L Glucose (65-105) mg/dl Lactate (0.7-2.1) mmol/L FiO2 40.0 % Potassium 4.4 (3.6-5.0) mmol/L Carbon Dioxide 24 (21-33) mmol/L Anion Gap 13 (10-20) BUN 19 (7-21) mg/dL Creatinine 0.6 (0.5-1.4) mg/dL Est GFR ( Amer) > 60 Est GFR (Non-Af Amer) > 60 Random Glucose 108 (70-110) mg/dL Calcium 9.3 (8.4-10.5) mg/dL Phosphorus 2.1 L (2.5-4.5) mg/dL Magnesium 2.1 (1.7-2.2) mg/dL Total Bilirubin 1.8 H (0.2-1.3) mg/dL Direct Bilirubin (0.0-0.4) mg/dL AST 41 H (15-39) U/L ALT 46 (7-56) U/L Alkaline Phosphatase 76 (38-133) U/L Lactate Dehydrogenase (333-699) U/L Total Creatine Kinase 188 (35-230) U/L CK-MB (CK-2) (0.0-3.6) ng/mL CK-MB (CK-2) % Troponin I 0.26 H* D ng/mL Total Protein 7.6 (5.8-8.3) g/dL Albumin 3.6 (3.0-4.8) g/dL Globulin 3.9 gm/dL Albumin/Globulin Ratio 0.9 L (1.1-1.8) Venous Blood Potassium (3.6-5.2) mmol/L 12/11/16 12/10/16 12/10/16 Range/Units 05:30 22:56 17:20 WBC 16.7 H (4.5-11.0) 10^3/ul RBC 4.17 (3.5-6.1) 10^6/uL Hgb 12.6 (12.0-16.0) gm/dL Hct 37.8 (36.0-48.0) % MCV 90.6 (80.0-105.0) fL MCH 30.2 (25.0-35.0) pg MCHC 33.3 (31.0-37.0) g/dl RDW 16.4 H (11.5-14.5) % Plt Count 97 L (120.0-450.0) 10^3/uL MPV 12.0 H (7.0-11.0) fl Neutrophils % (Manual) 85 H (50.0-70.0) % Band Neutrophils % 6 H (0-2) % Lymphocytes % (Manual) 5 L (22.0-35.0) % Monocytes % (Manual) 4 (1.0-6.0) % Platelet Evaluation Low (NORMAL) Anisocytosis (manual) Slight PT (9.9-11.8) Seconds INR (0.93-1.08) APTT (23.7-30.8) Seconds pCO2 (35-45) mm/Hg pO2 54 (30-55) mm/Hg HCO3 (21-28) mmol/L ABG pH (7.35-7.45) ABG Total CO2 (22-28) mmol.L ABG O2 Saturation (95-98) % ABG O2 Content (15-23) ML/dl ABG Base Excess (-2.0-3.0) mmol/L ABG Hemoglobin (11.7-17.4) g/dL ABG Carboxyhemoglobin (0.5-1.5) % POC ABG HHb (Measured) (0-5) % ABG Methemoglobin (0.0-3.0) % ABG O2 Capacity (16-24) mL/dl VBG pH 7.38 (7.32-7.43) VBG pCO2 38.0 L (40-60) VBG HCO3 22.5 (21-28) mmol/l VBG Total CO2 23.7 (22-28) mmol.L VBG O2 Sat (Calc) 92.7 H (40-65) % VBG Base Excess -2.3 L (0.0-2.0) mmol/L VBG Potassium 3.9 (3.6-5.2) mmol/L Hgb O2 Saturation (95.0-98.0) % Sodium 138.0 (132-148) mmol/L Chloride 112.0 H (98-107) mmol/L Glucose 120 H (65-105) mg/dl Lactate 1.9 (0.7-2.1) mmol/L FiO2 21.0 % Potassium (3.6-5.0) mmol/L Carbon Dioxide (21-33) mmol/L Anion Gap (10-20) BUN (7-21) mg/dL Creatinine (0.5-1.4) mg/dL Est GFR ( Amer) Est GFR (Non-Af Amer) Random Glucose (70-110) mg/dL Calcium (8.4-10.5) mg/dL Phosphorus (2.5-4.5) mg/dL Magnesium (1.7-2.2) mg/dL Total Bilirubin (0.2-1.3) mg/dL Direct Bilirubin (0.0-0.4) mg/dL AST (15-39) U/L ALT (7-56) U/L Alkaline Phosphatase (38-133) U/L Lactate Dehydrogenase 679 (333-699) U/L Total Creatine Kinase 258 H (35-230) U/L CK-MB (CK-2) 3.9 H (0.0-3.6) ng/mL CK-MB (CK-2) % Cancelled Troponin I 0.18 H* D ng/mL Total Protein (5.8-8.3) g/dL Albumin (3.0-4.8) g/dL Globulin gm/dL Albumin/Globulin Ratio (1.1-1.8) Venous Blood Potassium 3.9 (3.6-5.2) mmol/L 12/10/16 12/10/16 Range/Units 17:20 07:30 WBC (4.5-11.0) 10^3/ul RBC (3.5-6.1) 10^6/uL Hgb (12.0-16.0) gm/dL Hct (36.0-48.0) % MCV (80.0-105.0) fL MCH (25.0-35.0) pg MCHC (31.0-37.0) g/dl RDW (11.5-14.5) % Plt Count (120.0-450.0) 10^3/uL MPV (7.0-11.0) fl Neutrophils % (Manual) (50.0-70.0) % Band Neutrophils % (0-2) % Lymphocytes % (Manual) (22.0-35.0) % Monocytes % (Manual) (1.0-6.0) % Platelet Evaluation (NORMAL) Anisocytosis (manual) PT (9.9-11.8) Seconds INR (0.93-1.08) APTT (23.7-30.8) Seconds pCO2 (35-45) mm/Hg pO2 (30-55) mm/Hg HCO3 (21-28) mmol/L ABG pH (7.35-7.45) ABG Total CO2 (22-28) mmol.L ABG O2 Saturation (95-98) % ABG O2 Content (15-23) ML/dl ABG Base Excess (-2.0-3.0) mmol/L ABG Hemoglobin (11.7-17.4) g/dL ABG Carboxyhemoglobin (0.5-1.5) % POC ABG HHb (Measured) (0-5) % ABG Methemoglobin (0.0-3.0) % ABG O2 Capacity (16-24) mL/dl VBG pH (7.32-7.43) VBG pCO2 (40-60) VBG HCO3 (21-28) mmol/l VBG Total CO2 (22-28) mmol.L VBG O2 Sat (Calc) (40-65) % VBG Base Excess (0.0-2.0) mmol/L VBG Potassium (3.6-5.2) mmol/L Hgb O2 Saturation (95.0-98.0) % Sodium (132-148) mmol/L Chloride (98-107) mmol/L Glucose (65-105) mg/dl Lactate (0.7-2.1) mmol/L FiO2 % Potassium (3.6-5.0) mmol/L Carbon Dioxide (21-33) mmol/L Anion Gap (10-20) BUN (7-21) mg/dL Creatinine (0.5-1.4) mg/dL Est GFR ( Amer) Est GFR (Non-Af Amer) Random Glucose (70-110) mg/dL Calcium (8.4-10.5) mg/dL Phosphorus (2.5-4.5) mg/dL Magnesium (1.7-2.2) mg/dL Total Bilirubin (0.2-1.3) mg/dL Direct Bilirubin 0.9 H (0.0-0.4) mg/dL AST (15-39) U/L ALT (7-56) U/L Alkaline Phosphatase (38-133) U/L Lactate Dehydrogenase 597 714 H (333-699) U/L Total Creatine Kinase 357 H 280 H (35-230) U/L CK-MB (CK-2) 4.2 H 3.7 H (0.0-3.6) ng/mL CK-MB (CK-2) % Cancelled Cancelled Troponin I 0.31 H* D 0.10 D ng/mL Total Protein (5.8-8.3) g/dL Albumin (3.0-4.8) g/dL Globulin gm/dL Albumin/Globulin Ratio (1.1-1.8) Venous Blood Potassium (3.6-5.2) mmol/L Laboratory Results - last 24 hr 12/10/16 12/10/16 12/10/16 07:30 17:20 17:20 WBC RBC Hgb Hct MCV MCH MCHC RDW Plt Count MPV Neutrophils % (Manual) Band Neutrophils % Lymphocytes % (Manual) Monocytes % (Manual) Platelet Evaluation Anisocytosis (manual) PT INR APTT pCO2 pO2 54 HCO3 ABG pH ABG Total CO2 ABG O2 Saturation ABG O2 Content ABG Base Excess ABG Hemoglobin ABG Carboxyhemoglobin POC ABG HHb (Measured) ABG Methemoglobin ABG O2 Capacity VBG pH 7.38 VBG pCO2 38.0 L VBG HCO3 22.5 VBG Total CO2 23.7 VBG O2 Sat (Calc) 92.7 H VBG Base Excess -2.3 L VBG Potassium 3.9 Hgb O2 Saturation Sodium 138.0 Chloride 112.0 H Glucose 120 H Lactate 1.9 FiO2 21.0 Potassium Carbon Dioxide Anion Gap BUN Creatinine Est GFR ( Amer) Est GFR (Non-Af Amer) Random Glucose Calcium Phosphorus Magnesium Total Bilirubin Direct Bilirubin 0.9 H AST ALT Alkaline Phosphatase Lactate Dehydrogenase 714 H 597 Total Creatine Kinase 280 H 357 H CK-MB (CK-2) 3.7 H 4.2 H CK-MB (CK-2) % Cancelled Cancelled Troponin I 0.10 D 0.31 H* D Total Protein Albumin Globulin Albumin/Globulin Ratio Venous Blood Potassium 3.9 12/10/16 12/11/16 12/11/16 22:56 05:30 05:30 WBC 16.7 H RBC 4.17 Hgb 12.6 Hct 37.8 MCV 90.6 MCH 30.2 MCHC 33.3 RDW 16.4 H Plt Count 97 L MPV 12.0 H Neutrophils % (Manual) 85 H Band Neutrophils % 6 H Lymphocytes % (Manual) 5 L Monocytes % (Manual) 4 Platelet Evaluation Low Anisocytosis (manual) Slight PT INR APTT pCO2 pO2 HCO3 ABG pH ABG Total CO2 ABG O2 Saturation ABG O2 Content ABG Base Excess ABG Hemoglobin ABG Carboxyhemoglobin POC ABG HHb (Measured) ABG Methemoglobin ABG O2 Capacity VBG pH VBG pCO2 VBG HCO3 VBG Total CO2 VBG O2 Sat (Calc) VBG Base Excess VBG Potassium Hgb O2 Saturation Sodium 141 Chloride 108 H Glucose Lactate FiO2 Potassium 4.4 Carbon Dioxide 24 Anion Gap 13 BUN 19 Creatinine 0.6 Est GFR ( Amer) > 60 Est GFR (Non-Af Amer) > 60 Random Glucose 108 Calcium 9.3 Phosphorus 2.1 L Magnesium 2.1 Total Bilirubin 1.8 H Direct Bilirubin AST 41 H ALT 46 Alkaline Phosphatase 76 Lactate Dehydrogenase 679 Total Creatine Kinase 258 H 188 CK-MB (CK-2) 3.9 H CK-MB (CK-2) % Cancelled Troponin I 0.18 H* D 0.26 H* D Total Protein 7.6 Albumin 3.6 Globulin 3.9 Albumin/Globulin Ratio 0.9 L Venous Blood Potassium 12/11/16 12/11/16 07:28 09:00 WBC RBC Hgb Hct MCV MCH MCHC RDW Plt Count MPV Neutrophils % (Manual) Band Neutrophils % Lymphocytes % (Manual) Monocytes % (Manual) Platelet Evaluation Anisocytosis (manual) PT 29.4 H INR 2.72 H APTT 53.0 H pCO2 27 L pO2 118.0 H HCO3 17.1 L ABG pH 7.41 ABG Total CO2 17.9 L ABG O2 Saturation 99.0 H ABG O2 Content 16.9 ABG Base Excess -6.2 L ABG Hemoglobin 12.2 ABG Carboxyhemoglobin 1.2 POC ABG HHb (Measured) 1.0 ABG Methemoglobin 0.3 ABG O2 Capacity 17.1 VBG pH VBG pCO2 VBG HCO3 VBG Total CO2 VBG O2 Sat (Calc) VBG Base Excess VBG Potassium Hgb O2 Saturation 97.5 Sodium Chloride Glucose Lactate FiO2 40.0 Potassium Carbon Dioxide Anion Gap BUN Creatinine Est GFR ( Amer) Est GFR (Non-Af Amer) Random Glucose Calcium Phosphorus Magnesium Total Bilirubin Direct Bilirubin AST ALT Alkaline Phosphatase Lactate Dehydrogenase Total Creatine Kinase CK-MB (CK-2) CK-MB (CK-2) % Troponin I Total Protein Albumin Globulin Albumin/Globulin Ratio Venous Blood Potassium EKG/Cardiology Studies: Cardiology / EKG Studies 12/10/16 14:47 EKG [ELECTROCARDIOGRAM] Stat Comment: Reason For Exam: trops increase 12/10/16 20:23 ELECTROCARDIOGRAM Stat Comment: Reason For Exam: chest tightness 12/11/16 04:00 EKG [ELECTROCARDIOGRAM] Urgent Comment: Reason For Exam: chest tightness Fingerstick Blood Sugar Results: 87 Critical Care Progress Note - Nutrition Nutrition: Nutrition Category Date Time Status Pureed [Dysphagia/Modified Consistency Diet] [DIET] Diets 12/11/16 Breakfast Ordered Assessment/Plan - Assessment and Plan (Free Text) Plan: 81F with Hx of A-fib on coumadin, CAD with 2 stents, chronic pain requiring "frequent percocet, motrin, tylenol", L sided pressure ulcer on buttock due to prolong laying in bed in the past 2 weeks, came to ED after daughter found the pt screaming uncontrollably at home and confused. At baseline, Pt is AAOx3 and ambulate independently with walker. In the prior 2 weeks, pt did not feel well and was bed bound x 2 weeks, developed pressure ulcers prior to ED arrival. On arrival at ED, pt is septic, febrile. CT showed L uerteral calculus with mild hydroureternephrosis. UTI was positive for infection. Pt had a L ureteral stent placement. POD#0. Pt came to ICU post-op. Pt has an infection that triggers rapid a-fib, delirium. New onset wheezes post-op. T max 101.7 rectal at 3pm yesterday. Pt had L ureteral stent post-cystoscopy, POD #1 Neuro - mentation improves with delirium resolved - Haldol PRN; environmental cueing - HOB to 30 degrees - CT brain negative for acute edema or bleed Cardio - A-fib at 90s to low 100s - If HR sustained above 130, Cardizem PRN - INR therapeutic. Slight fluid overload. Given lasix 40 x 1 - Continue coumadin 2 tonight - Trop 0.3 --> 0.26, likely MT type 2, suspected NSTEMI - ASA 81mg PO daily, amlodipine 10 PO qd, Lopressor PO 25 BID - Echo pending official read Pulm - New onset wheeze and poss. atelectasis - O2 via NC PRN - Target SaO2 >92% - CXR 3pm yesterday - no active disease - Duoneb q6, q3 PRN - inspiratory spirometry, flutter valve, Renal - Mild cystitis vs underdistention. - Hematuria. U/O adequate, Hb stable - Aim for negative fluid balance, D/C fluid GI - CT abdomen pelvis: Probable cirrhosis - US abdomen pelvis reviewed: No acute findings. - Recommend outpatient follow-up Endo - target euglycemic ID - Merrem & Vancomycin - sources of infection: Skin (pressure ulcer with cellulitis), pyelonephritis, blood (G-bacteremia) - Re-draw blood culture today Skin - pressure ulcer, stage 2, with cellulitis - air mattress, wound care referral, turn q2h Heme - INR therapeutic Musculosketal - Fall precautions - Home med: Gabapentin as per Dr. Lazo GI/DVT ppx - SCDs - Protonix Dispo - transferred to Tele S/R/D/w Dr. Soraida Rodriguez - Date & Time Date: 12/11/16 Time: 13:18 <Michael OSUNA,Kelly H - Last Filed: 12/11/16 14:17> CCU Objective - Vital Signs / Intake & Output Vital Signs (Last 4 hours): Vital Signs Pulse Resp BP Pulse Ox 12/11/16 13:20 111 H 38 H 90 L 12/11/16 13:10 100 H 35 H 91 L 12/11/16 13:02 107 H 35 H 173/96 H 91 L 12/11/16 13:00 108 H 39 H 175/86 H 91 L 12/11/16 12:50 109 H 33 H 92 L 12/11/16 12:40 105 H 31 H 92 L 12/11/16 12:30 100 H 47 H 90 L 12/11/16 12:20 102 H 34 H 88 L 12/11/16 12:10 103 H 26 H 92 L 12/11/16 12:00 95 H 33 H 167/93 H 92 L 12/11/16 11:50 100 H 36 H 90 L 12/11/16 11:40 98 H 43 H 90 L 12/11/16 11:30 96 H 30 H 91 L 12/11/16 11:20 92 H 27 H 90 L 12/11/16 11:10 95 H 27 H 90 L 12/11/16 11:00 92 H 37 H 159/82 H 90 L 12/11/16 10:50 100 H 30 H 90 L 12/11/16 10:40 101 H 40 H 91 L 12/11/16 10:38 176/106 H 12/11/16 10:37 176/106 H 12/11/16 10:30 98 H 33 H 91 L 12/11/16 10:20 97 H 30 H 91 L Intake and Output (Last 8hrs): Intake & Output 12/10/16 12/11/16 12/11/16 22:59 06:59 14:59 Intake Total 2700 2500 Output Total 900 400 Balance 1800 2100 Intake: IV 2500 2500 Left Forearm 1500 Left Hand 1500 Oral 200 Output: Urine 900 400 Urethral ([place]) 900 400 Other: Voiding Method Indwelling Catheter Indwelling Catheter # Bowel Movements 1 - Medications Active Medications: Active Medications Generic Name Dose Route Start Last Admin Trade Name Freq PRN Reason Stop Dose Admin Acetaminophen 650 mg 12/10/16 15:39 12/10/16 15:54 Tylenol 325mg Tab PO 650 mg Q4H PRN Administration Fever >100.4 F Albuterol/Ipratropium 3 ml 12/10/16 20:00 12/11/16 13:42 Duoneb 3 Mg/0.5 Mg (3 Ml) Ud IH 3 ml [id number] JAMES Administration Albuterol/Ipratropium 3 ml 12/10/16 16:10 Duoneb 3 Mg/0.5 Mg (3 Ml) Ud IH Q3H PRN Shortness of Breath Amlodipine Besylate 10 mg 12/11/16 09:40 12/11/16 10:38 Norvasc PO 10 mg QAM JAMES Administration Aspirin 81 mg 12/10/16 10:00 12/11/16 09:12 Aspirin Chewable PO 81 mg DAILY JAMES Administration Diltiazem HCl 5 mg 12/10/16 13:22 Cardizem IVP Q2 PRN HR>130 Gabapentin 300 mg 12/10/16 10:00 12/11/16 09:11 Neurontin PO 300 mg TID JAMES Administration Protocol Meropenem 1g/NS 100mL IVPB 1 gm in 100 mls @ 100 mls/hr 12/10/16 07:15 06:21 Meropenem 1g/Ns 100ml Ivpb IVPB 12/17/16 07:16 100 mls/hr Q8 JAMES Administration Protocol Vancomycin HCl 1 gm in 250 mls @ 167 mls/hr 12/11/16 13:15 Vancomycin 1gm IVPB Q12H JAMES Protocol Metoprolol Tartrate 25 mg 12/10/16 17:00 12/11/16 09:12 Lopressor PO 25 mg BRKDIN JAMES Administration Pantoprazole Sodium 40 mg 12/10/16 10:00 12/11/16 09:11 Protonix Inj IVP 40 mg DAILY JAMES Administration Potassium Chloride 20 meq 12/10/16 10:00 12/11/16 09:10 K-Dur 20 Meq Er Tab PO 20 meq DAILY JAMES Administration - Patient Studies Lab Studies: Lab Studies 12/11/16 12/11/16 12/11/16 Range/Units 09:00 07:28 05:30 WBC (4.5-11.0) 10^3/ul RBC (3.5-6.1) 10^6/uL Hgb (12.0-16.0) gm/dL Hct (36.0-48.0) % MCV (80.0-105.0) fL MCH (25.0-35.0) pg MCHC (31.0-37.0) g/dl RDW (11.5-14.5) % Plt Count (120.0-450.0) 10^3/uL MPV (7.0-11.0) fl Neutrophils % (Manual) (50.0-70.0) % Band Neutrophils % (0-2) % Lymphocytes % (Manual) (22.0-35.0) % Monocytes % (Manual) (1.0-6.0) % Platelet Evaluation (NORMAL) Anisocytosis (manual) PT 29.4 H (9.9-11.8) Seconds INR 2.72 H (0.93-1.08) APTT 53.0 H (23.7-30.8) Seconds pCO2 27 L (35-45) mm/Hg pO2 118.0 H (30-55) mm/Hg HCO3 17.1 L (21-28) mmol/L ABG pH 7.41 (7.35-7.45) ABG Total CO2 17.9 L (22-28) mmol.L ABG O2 Saturation 99.0 H (95-98) % ABG O2 Content 16.9 (15-23) ML/dl ABG Base Excess -6.2 L (-2.0-3.0) mmol/L ABG Hemoglobin 12.2 (11.7-17.4) g/dL ABG Carboxyhemoglobin 1.2 (0.5-1.5) % POC ABG HHb (Measured) 1.0 (0-5) % ABG Methemoglobin 0.3 (0.0-3.0) % ABG O2 Capacity 17.1 (16-24) mL/dl VBG pH (7.32-7.43) VBG pCO2 (40-60) VBG HCO3 (21-28) mmol/l VBG Total CO2 (22-28) mmol.L VBG O2 Sat (Calc) (40-65) % VBG Base Excess (0.0-2.0) mmol/L VBG Potassium (3.6-5.2) mmol/L Hgb O2 Saturation 97.5 (95.0-98.0) % Sodium 141 (132-148) mmol/L Chloride 108 H (98-107) mmol/L Glucose (65-105) mg/dl Lactate (0.7-2.1) mmol/L FiO2 40.0 % Potassium 4.4 (3.6-5.0) mmol/L Carbon Dioxide 24 (21-33) mmol/L Anion Gap 13 (10-20) BUN 19 (7-21) mg/dL Creatinine 0.6 (0.5-1.4) mg/dL Est GFR ( Amer) > 60 Est GFR (Non-Af Amer) > 60 Random Glucose 108 (70-110) mg/dL Calcium 9.3 (8.4-10.5) mg/dL Phosphorus 2.1 L (2.5-4.5) mg/dL Magnesium 2.1 (1.7-2.2) mg/dL Total Bilirubin 1.8 H (0.2-1.3) mg/dL AST 41 H (15-39) U/L ALT 46 (7-56) U/L Alkaline Phosphatase 76 (38-133) U/L Lactate Dehydrogenase (333-699) U/L Total Creatine Kinase 188 (35-230) U/L CK-MB (CK-2) (0.0-3.6) ng/mL CK-MB (CK-2) % Troponin I 0.26 H* D ng/mL Total Protein 7.6 (5.8-8.3) g/dL Albumin 3.6 (3.0-4.8) g/dL Globulin 3.9 gm/dL Albumin/Globulin Ratio 0.9 L (1.1-1.8) Venous Blood Potassium (3.6-5.2) mmol/L 12/11/16 12/10/16 12/10/16 Range/Units 05:30 22:56 17:20 WBC 16.7 H (4.5-11.0) 10^3/ul RBC 4.17 (3.5-6.1) 10^6/uL Hgb 12.6 (12.0-16.0) gm/dL Hct 37.8 (36.0-48.0) % MCV 90.6 (80.0-105.0) fL MCH 30.2 (25.0-35.0) pg MCHC 33.3 (31.0-37.0) g/dl RDW 16.4 H (11.5-14.5) % Plt Count 97 L (120.0-450.0) 10^3/uL MPV 12.0 H (7.0-11.0) fl Neutrophils % (Manual) 85 H (50.0-70.0) % Band Neutrophils % 6 H (0-2) % Lymphocytes % (Manual) 5 L (22.0-35.0) % Monocytes % (Manual) 4 (1.0-6.0) % Platelet Evaluation Low (NORMAL) Anisocytosis (manual) Slight PT (9.9-11.8) Seconds INR (0.93-1.08) APTT (23.7-30.8) Seconds pCO2 (35-45) mm/Hg pO2 54 (30-55) mm/Hg HCO3 (21-28) mmol/L ABG pH (7.35-7.45) ABG Total CO2 (22-28) mmol.L ABG O2 Saturation (95-98) % ABG O2 Content (15-23) ML/dl ABG Base Excess (-2.0-3.0) mmol/L ABG Hemoglobin (11.7-17.4) g/dL ABG Carboxyhemoglobin (0.5-1.5) % POC ABG HHb (Measured) (0-5) % ABG Methemoglobin (0.0-3.0) % ABG O2 Capacity (16-24) mL/dl VBG pH 7.38 (7.32-7.43) VBG pCO2 38.0 L (40-60) VBG HCO3 22.5 (21-28) mmol/l VBG Total CO2 23.7 (22-28) mmol.L VBG O2 Sat (Calc) 92.7 H (40-65) % VBG Base Excess -2.3 L (0.0-2.0) mmol/L VBG Potassium 3.9 (3.6-5.2) mmol/L Hgb O2 Saturation (95.0-98.0) % Sodium 138.0 (132-148) mmol/L Chloride 112.0 H (98-107) mmol/L Glucose 120 H (65-105) mg/dl Lactate 1.9 (0.7-2.1) mmol/L FiO2 21.0 % Potassium (3.6-5.0) mmol/L Carbon Dioxide (21-33) mmol/L Anion Gap (10-20) BUN (7-21) mg/dL Creatinine (0.5-1.4) mg/dL Est GFR ( Amer) Est GFR (Non-Af Amer) Random Glucose (70-110) mg/dL Calcium (8.4-10.5) mg/dL Phosphorus (2.5-4.5) mg/dL Magnesium (1.7-2.2) mg/dL Total Bilirubin (0.2-1.3) mg/dL AST (15-39) U/L ALT (7-56) U/L Alkaline Phosphatase (38-133) U/L Lactate Dehydrogenase 679 (333-699) U/L Total Creatine Kinase 258 H (35-230) U/L CK-MB (CK-2) 3.9 H (0.0-3.6) ng/mL CK-MB (CK-2) % Cancelled Troponin I 0.18 H* D ng/mL Total Protein (5.8-8.3) g/dL Albumin (3.0-4.8) g/dL Globulin gm/dL Albumin/Globulin Ratio (1.1-1.8) Venous Blood Potassium 3.9 (3.6-5.2) mmol/L / Range/Units 17:20 WBC (4.5-11.0) 10^3/ul RBC (3.5-6.1) 10^6/uL Hgb (12.0-16.0) gm/dL Hct (36.0-48.0) % MCV (80.0-105.0) fL MCH (25.0-35.0) pg MCHC (31.0-37.0) g/dl RDW (11.5-14.5) % Plt Count (120.0-450.0) 10^3/uL MPV (7.0-11.0) fl Neutrophils % (Manual) (50.0-70.0) % Band Neutrophils % (0-2) % Lymphocytes % (Manual) (22.0-35.0) % Monocytes % (Manual) (1.0-6.0) % Platelet Evaluation (NORMAL) Anisocytosis (manual) PT (9.9-11.8) Seconds INR (0.93-1.08) APTT (23.7-30.8) Seconds pCO2 (35-45) mm/Hg pO2 (30-55) mm/Hg HCO3 (21-28) mmol/L ABG pH (7.35-7.45) ABG Total CO2 (22-28) mmol.L ABG O2 Saturation (95-98) % ABG O2 Content (15-23) ML/dl ABG Base Excess (-2.0-3.0) mmol/L ABG Hemoglobin (11.7-17.4) g/dL ABG Carboxyhemoglobin (0.5-1.5) % POC ABG HHb (Measured) (0-5) % ABG Methemoglobin (0.0-3.0) % ABG O2 Capacity (16-24) mL/dl VBG pH (7.32-7.43) VBG pCO2 (40-60) VBG HCO3 (21-28) mmol/l VBG Total CO2 (22-28) mmol.L VBG O2 Sat (Calc) (40-65) % VBG Base Excess (0.0-2.0) mmol/L VBG Potassium (3.6-5.2) mmol/L Hgb O2 Saturation (95.0-98.0) % Sodium (132-148) mmol/L Chloride (98-107) mmol/L Glucose (65-105) mg/dl Lactate (0.7-2.1) mmol/L FiO2 % Potassium (3.6-5.0) mmol/L Carbon Dioxide (21-33) mmol/L Anion Gap (10-20) BUN (7-21) mg/dL Creatinine (0.5-1.4) mg/dL Est GFR ( Amer) Est GFR (Non-Af Amer) Random Glucose (70-110) mg/dL Calcium (8.4-10.5) mg/dL Phosphorus (2.5-4.5) mg/dL Magnesium (1.7-2.2) mg/dL Total Bilirubin (0.2-1.3) mg/dL AST (15-39) U/L ALT (7-56) U/L Alkaline Phosphatase (38-133) U/L Lactate Dehydrogenase 597 (333-699) U/L Total Creatine Kinase 357 H (35-230) U/L CK-MB (CK-2) 4.2 H (0.0-3.6) ng/mL CK-MB (CK-2) % Cancelled Troponin I 0.31 H* D ng/mL Total Protein (5.8-8.3) g/dL Albumin (3.0-4.8) g/dL Globulin gm/dL Albumin/Globulin Ratio (1.1-1.8) Venous Blood Potassium (3.6-5.2) mmol/L Laboratory Results - last 24 hr 12/10/16 12/10/16 12/10/16 17:20 17:20 22:56 WBC RBC Hgb Hct MCV MCH MCHC RDW Plt Count MPV Neutrophils % (Manual) Band Neutrophils % Lymphocytes % (Manual) Monocytes % (Manual) Platelet Evaluation Anisocytosis (manual) PT INR APTT pCO2 pO2 54 HCO3 ABG pH ABG Total CO2 ABG O2 Saturation ABG O2 Content ABG Base Excess ABG Hemoglobin ABG Carboxyhemoglobin POC ABG HHb (Measured) ABG Methemoglobin ABG O2 Capacity VBG pH 7.38 VBG pCO2 38.0 L VBG HCO3 22.5 VBG Total CO2 23.7 VBG O2 Sat (Calc) 92.7 H VBG Base Excess -2.3 L VBG Potassium 3.9 Hgb O2 Saturation Sodium 138.0 Chloride 112.0 H Glucose 120 H Lactate 1.9 FiO2 21.0 Potassium Carbon Dioxide Anion Gap BUN Creatinine Est GFR ( Amer) Est GFR (Non-Af Amer) Random Glucose Calcium Phosphorus Magnesium Total Bilirubin AST ALT Alkaline Phosphatase Lactate Dehydrogenase 597 679 Total Creatine Kinase 357 H 258 H CK-MB (CK-2) 4.2 H 3.9 H CK-MB (CK-2) % Cancelled Cancelled Troponin I 0.31 H* D 0.18 H* D Total Protein Albumin Globulin Albumin/Globulin Ratio Venous Blood Potassium 3.9 12/11/16 12/11/16 12/11/16 05:30 05:30 07:28 WBC 16.7 H RBC 4.17 Hgb 12.6 Hct 37.8 MCV 90.6 MCH 30.2 MCHC 33.3 RDW 16.4 H Plt Count 97 L MPV 12.0 H Neutrophils % (Manual) 85 H Band Neutrophils % 6 H Lymphocytes % (Manual) 5 L Monocytes % (Manual) 4 Platelet Evaluation Low Anisocytosis (manual) Slight PT INR APTT pCO2 27 L pO2 118.0 H HCO3 17.1 L ABG pH 7.41 ABG Total CO2 17.9 L ABG O2 Saturation 99.0 H ABG O2 Content 16.9 ABG Base Excess -6.2 L ABG Hemoglobin 12.2 ABG Carboxyhemoglobin 1.2 POC ABG HHb (Measured) 1.0 ABG Methemoglobin 0.3 ABG O2 Capacity 17.1 VBG pH VBG pCO2 VBG HCO3 VBG Total CO2 VBG O2 Sat (Calc) VBG Base Excess VBG Potassium Hgb O2 Saturation 97.5 Sodium 141 Chloride 108 H Glucose Lactate FiO2 40.0 Potassium 4.4 Carbon Dioxide 24 Anion Gap 13 BUN 19 Creatinine 0.6 Est GFR ( Amer) > 60 Est GFR (Non-Af Amer) > 60 Random Glucose 108 Calcium 9.3 Phosphorus 2.1 L Magnesium 2.1 Total Bilirubin 1.8 H AST 41 H ALT 46 Alkaline Phosphatase 76 Lactate Dehydrogenase Total Creatine Kinase 188 CK-MB (CK-2) CK-MB (CK-2) % Troponin I 0.26 H* D Total Protein 7.6 Albumin 3.6 Globulin 3.9 Albumin/Globulin Ratio 0.9 L Venous Blood Potassium 12/11/16 09:00 WBC RBC Hgb Hct MCV MCH MCHC RDW Plt Count MPV Neutrophils % (Manual) Band Neutrophils % Lymphocytes % (Manual) Monocytes % (Manual) Platelet Evaluation Anisocytosis (manual) PT 29.4 H INR 2.72 H APTT 53.0 H pCO2 pO2 HCO3 ABG pH ABG Total CO2 ABG O2 Saturation ABG O2 Content ABG Base Excess ABG Hemoglobin ABG Carboxyhemoglobin POC ABG HHb (Measured) ABG Methemoglobin ABG O2 Capacity VBG pH VBG pCO2 VBG HCO3 VBG Total CO2 VBG O2 Sat (Calc) VBG Base Excess VBG Potassium Hgb O2 Saturation Sodium Chloride Glucose Lactate FiO2 Potassium Carbon Dioxide Anion Gap BUN Creatinine Est GFR ( Amer) Est GFR (Non-Af Amer) Random Glucose Calcium Phosphorus Magnesium Total Bilirubin AST ALT Alkaline Phosphatase Lactate Dehydrogenase Total Creatine Kinase CK-MB (CK-2) CK-MB (CK-2) % Troponin I Total Protein Albumin Globulin Albumin/Globulin Ratio Venous Blood Potassium EKG/Cardiology Studies: Cardiology / EKG Studies 12/10/16 14:47 EKG [ELECTROCARDIOGRAM] Stat Comment: Reason For Exam: trops increase 12/10/16 20:23 ELECTROCARDIOGRAM Stat Comment: Reason For Exam: chest tightness 12/11/16 04:00 EKG [ELECTROCARDIOGRAM] Urgent Comment: Reason For Exam: chest tightness Critical Care Progress Note - Nutrition Nutrition: Nutrition Category Date Time Status Pureed [Dysphagia/Modified Consistency Diet] [DIET] Diets 12/11/16 Breakfast Ordered Attending/Attestation - Attestation I have personally seen and examined this patient.: Yes I have fully participated in the care of the patient.: Yes I have reviewed all pertinent clinical information: Yes Notes (Text): 12/11/16 14:13 81 y/o F w/ Sepsis from UTi bacteremia S/P L uretral stent. Urology following as well. ON ABX w/ cx pending. ID following. Continues to have elevated WBC. A FIB rate controlled. Started on BP and A FIB medications to help. I.V prn available as well to keep HR <130 Cellulitis on rear/ back . On Meropenum as well. May need repeat CT abd/ pelvis if WBC persists. INR>2. anticoagulation not started yet. Troponin elevation likely type 2 / Rapid heart heart . cc time 65 min
[2016-12-11] MEDS: Vancomycin 1gm in NS 250ml 1 GM/250 ML BAG IVPB SCH (14:24)
[2016-12-12] MEDS: Albuterol-Ipratrop 3 mg / 0.5 (3 ml) UD IH SCH (01:02)
[2016-12-12] MEDS: Vancomycin 1gm in NS 250ml 1 GM/250 ML BAG IVPB SCH (01:22)
[2016-12-12 05:11] LABS: ADD MANUAL DIFF? NO
[2016-12-12] MEDS: Meropenem 1g/NS 100mL IVPB 1 GM/100 ML PIGGYBACK IVPB SCH (05:13)
[2016-12-12 05:21] LABS: BASO # 0.01 K/mm3 (0.0-2.0); BASO % 0.1 % (0.0-3.0); GRAN # 10.76 (1.4-6.5); GRAN % 84.5 % (50.0-68.0); HEMATOCRIT 35.6 % (36.0-48.0); LYMPH % 7.5 % (22.0-35.0); MEAN CELL VOLUME 89.2 fL (80.0-105.0); MEAN CORPUSCULAR HEMOGLOBIN 30.3 pg (25.0-35.0); MEAN PLATELET VOLUME 11.2 fl (7.0-11.0); MONO % 7.9 % (1.0-6.0); PLATELET COUNT 100 10^3/uL (120.0-450.0); RED CELL DISTRIBUTION WIDTH 15.9 % (11.5-14.5); WHITE BLOOD COUNT 12.7 10^3/ul (4.5-11.0)
[2016-12-12 05:25] LABS: ALB/GLOB RATIO 0.9 (1.1-1.8); ALKALINE PHOSPHATASE 71 U/L (38-133); ALT/SGPT 42 U/L (7-56); AST/SGOT 29 U/L (15-39); BILIRUBIN,TOTAL 2.3 mg/dL (0.2-1.3); BLOOD UREA NITROGEN 17 mg/dL (7-21); CALCIUM 9.1 mg/dL (8.4-10.5); CARBON DIOXIDE 28 mmol/L (21-33); CHLORIDE 103 mmol/L (98-107); GFR AFRICAN-AMERICAN > 60; GLUCOSE,RANDOM 112 mg/dL (70-110); PHOSPHOROUS 1.6 mg/dL (2.5-4.5); POTASSIUM 3.9 mmol/L (3.6-5.0); SODIUM 139 mmol/L (132-148); TOTAL PROTEIN 7.4 g/dL (5.8-8.3)
[2016-12-12 05:36] VITALS: O2SAT 98
[2016-12-12] MEDS ORDERED: Albuterol-Ipratrop 3 mg / 0.5 (3 ml) UD IH PRN (05:53)
[2016-12-12] MEDS ORDERED: Metoprolol 1 mg/ml Inj IVP ONE (06:07)
[2016-12-12 06:36] LABS: INR 2.85 (0.93-1.08); PARTIAL THROMBOPLASTIN TIME 54.9 Seconds (23.7-30.8)
[2016-12-12] MEDS ORDERED: Pantoprazole 40 mg Susp UD PO SCH (07:30)
--- NOTE | 2016-12-12 07:36 | PN ---
DATE: 12/12/2016 SUBJECTIVE: The patient has no complaints of any chest pain, no shortness of breath, no headaches, n o dizziness. PHYSICAL EXAMINATION: VITAL SIGNS: Temperature is 98.3, pulse of 99, blood pressure 162/92, respirations 20. GENERAL: The patient comfortable, in no acute distress. HEENT: Anicteric sclerae. Moist mucosa. NECK: No JVD or adenopathy. CARDIAC: S1/S2. No murmurs. No rubs. Regular. RESPIRATORY: Clear to auscultation bilaterally. No wheezes, rales, or rhonchi. Good air entry. ABDOMEN: Bowel sounds are positive, soft, nontender, and nondistended. EXTREMITIES: No edema. Has 1+ pulses. LABORATORIES: White count of 12.7, hemoglobin 12.1. Creatinine 0.5. ASSESSMENT: 1. Sepsis, secondary to gram-negative rods. 2. Left-sided kidney stone with hydroureter. 3. Status post left ureteral stent placement. 4. Atrial fibrillation, controlled. 5. Coronary artery disease. 6. Hypertension. 7. Dyslipidemia. PLAN: The patient does have sepsis secondary to a gram-negative nghia. The cultures are pending. The patient is clinically improving. Her white count has improved significantly. She is currently comf ortable. She is being followed by cardiology and infectious disease. The patient is on metoprolol. She is on meropenem for antibiotics. She is on amlodipine for hypertension. She is on a pureed t. We will continue to follow her closely. Moreno Lazo MD cc: [id number] TT: 12/12/2016 07:35:56 Confirmation # [id number] Dictation # [id number] en
--- NOTE | 2016-12-12 09:21 | CARD ---
APPROVED REPORT EXAM: Two-dimensional and M-mode echocardiogram with Doppler and color Doppler. INDICATION Atrial Fibrillation 2D DIMENSIONS Left Atrium (2D)4.3 (1.6-4.0cm)IVSd0.9 (0.7-1.1cm) LVDd4.7 (3.9-5.9cm)PWd1.0 (0.7-1.1cm) LVDs3.8 (2.5-4.0cm)FS (%) 19.7 % LVEF (%)40.6 (>50%) M-Mode DIMENSIONS Aortic Root2.20 (2.2-3.7cm)Aortic Cusp Exc.1.40 (1.5-2.0cm) Aortic Valve AoV Peak Focnbtpx786.0cm/Kieran Peak GR.8mmHg Mitral Valve E/A ratio0.0 TDI E/Lateral E'0.0E/Medial E'0.0 Tricuspid Valve TR Peak [id number]/sRAP [id number] Peak Gr.54mmHg [id number] LEFT VENTRICLE The left ventricle is normal size. There is normal left ventricular wall thickness. The systolic function is mildly impaired. There is global hypokinesis of the left ventricle. There is a flattened septum consistent with right ventricle pressure overload. RIGHT VENTRICLE The right ventricle is moderately dilated. The right ventricular systolic function is normal. ATRIA The left atrium is mildly dilated. The right atrium is severely dilated. The inferior vena cava is dilated. The interatrial septum is intact with no evidence for an atrial septal defect. AORTIC VALVE The aortic valve is mildly sclerotic. No aortic regurgitation is present. There is no aortic valvular stenosis. MITRAL VALVE The mitral valve is normal in structure. Mitral regurgitation is mild. TRICUSPID VALVE The tricuspid valve is normal in structure. There is severe tricuspid regurgitation. There is moderate to severe pulmonary hypertension. PULMONIC VALVE The pulmonary valve is normal in structure. GREAT VESSELS The aortic root is normal in size. The IVC is dilated. PERICARDIAL EFFUSION There is no pleural effusion. There is no pericardial effusion. <Conclusion> Dilated RV and RA. Mildly dilated LA. Normal LV size and systolic function. Moderate to severe TR. Moderate to severe pulmonary HTN. Mild MR.
[2016-12-12] MEDS: Potassium Chloride 20 mEq ER Tab PO SCH (10:16)
--- NOTE | 2016-12-12 11:50 | PN ---
DATE: 12/12/2016 SUBJECTIVE: The patient seen earlier today in room 267, bed 1. No fevers and no chills. She does c omplain of weakness. PHYSICAL EXAMINATION: VITAL SIGNS: Temperature 98, blood pressure is 160/70, respiratory rate 20, heart rate of 92. HEENT: Unremarkable. NECK: Supple. LUNGS: Have decreased breath sounds. HEART: Normal S1, S2. ABDOMEN: Soft. LABORATORY DATA: Reveals the patient's white count is down to 12,700 from 17,800. Chemistries are n oted. The patient's BUN of 17, creatinine of 0.5. Troponin is elevated. Procalcitonin is elevated. Microbiology reveals the patient has E. coli in the blood that is pansensitive and E. coli in the u rine, also pansensitive. The patient has no known allergies. CURRENT MEDICATION: List includes: Meropenem. ASSESSMENT AND PLAN: This is an 81-year-old female seen earlier in 267, bed 1 with sepsis with Esche richia coli bacteremia secondary to Escherichia coli urinary tract infection and genitourinary system revealed left hydronephrosis, status post left ureteral stent placement, history of herpes zoster, l eft-sided neck pain in the past with post-hepatic neuralgia, history of coronary artery disease and P CI and hypertension and dyslipidemia. Will discontinue meropenem and use ceftriaxone and when for re shelli for discharge, may use p.o. Cipro. Dr. Lazo's note is reviewed. Josh Omer MD cc: 350 TT: 12/12/2016 11:50:04 Confirmation # [id number] Dictation # [id number] tim
[2016-12-12 17:25] VITALS: BP 176/94
[2016-12-12 18:16] VITALS: PULSE 80; RESP 18; TEMP 98.7
--- NOTE | 2016-12-12 18:27 | PN ---
DATE: 12/12/2016 SUBJECTIVE: The patient is seen lying in bed on 2R. She remains in atrial fibrillation. She has mak d frequent runs of nonsustained ventricular tachycardia overnight. She denies any symptoms. CURRENT MEDICATIONS: Include aspirin, diltiazem IV p.r.n., DuoNeb inhaler, metoprolol 25 mg b.i.d., Neurontin, amlodipine 10 mg daily, Protonix, Rocephin. PHYSICAL EXAMINATION: GENERAL: She is an elderly woman who appears comfortable at rest. VITAL SIGNS: Her blood pressure is 170/90 with a pulse of 90-110 in atrial fibrillation. Short runs of nonsustained ventricular tachycardia noted averaging 6-15 beats at a time. Her respirations are 16 and she is afebrile. HEENT: No JVD. CHEST: Bilateral scattered rhonchi are heard. HEART: Systolic murmur is noted at the lower left sternal border as well as at the apex. ABDOMEN: Soft, nontender with normoactive bowel sounds. EXTREMITIES: No edema. DIAGNOSTIC DATA: White count 12.7, hemoglobin and hematocrit 12.1 and 35.6 with a platelet count of 100,000. INR is 2.85, potassium 3.9, BUN and creatinine 17 and 0.5. Magnesium and phosphorus were n ormal. IMPRESSION: 1. Recent urosepsis due to nephrolithiasis, status post ureteral stent placement. 2. Chronic atrial fibrillation. 3. Nonsustained ventricular tachycardia. 4. Mild mitral regurgitation with severe tricuspid regurgitation and pulmonary hypertension. 5. Thrombocytopenia. RECOMMENDATIONS: Her beta dami dose will be increased at this time to 50 mg b.i.d. in an attempt to suppress her ventricular tachycardia and improve her heart rate control. Intensified antihyperten sive therapy may be necessary as well. In general, conservative management appears most appropriate at this time. We will continue to follow along and make further recommendations as appropriate. Joel Ochoa MD cc: [id number] TT: 12/12/2016 18:27:32 Confirmation # [id number] Dictation # [id number] cn
[2016-12-13] MEDS ORDERED: cefTRIAXone 1 gm 1 GM/100 ML BAG IVPB SCH (10:00)
--- NOTE | 2016-12-15 13:53 | PQF AMI ---
This form is a permanent part of the medical record DR. ZACARIAS, As per critical care progress note 12/11 "likely AR type 2, suspected NSTEMI", please verify if NSTEMI was ruled in or ruled out. Clarification of your documentation is requested to better reflect the severity of illness and intensity of treatment of your patient. Indicators present [] Diagnosis of AR without specification of time frame (within 28 days of admission of greater than 28 days prior to admission) [] Diagnosis of subsequent AR (time frame of previous AR within 28 days of admission or greater than 28 days of admission) [] Diagnosis of AR w/o specified site [] EKG positive for changes (i.e.; ST elevation, non-ST elevation, Q-wave changes, etc.) [] Elevated Troponins [] Elevated Cardiac Enzymes [] Cardiac consult documentation of [] Chest pain/ACS/Unstable Angina [] Echo findings of [] Other: [] Location in the medical record that reflects the above clinical findings:[] 12/11 critical care progress note Other Treatment Provided:[] PHYSICIAN'S RESPONSE Based on your medical judgment of the clinical indicators outlined above, are you treating this patient for a known or suspected: [ ] NSTEMI [ ] STEMI Site: [ ] [ ] ACS/Unstable Angina [ ] Angina :[ ] [ ] Other, please indicate [ ]___ If Unable to Determine, please check the box, sign and date Present On Admission (POA) Indicator: [ ] Present at the time of admission [x ] Not present at the time of admission [ ] Clinically Undetermined * If you have any questions please call:[ ] * Thank you, [ X] MIGUEL pull out operator In responding to this query, please exercise your independent professional judgment. The fact that a question is asked does not imply that any particular answer is desired or expected. Thank you for your clarification on this documentation. LORIE
--- NOTE | 2017-01-04 13:03 | DS ---
This is an 81-year-old female who had come into the hospital because of sepsis. She had a left-sided kidney stone. She had improvement of her symptoms. She was discharged. Please see the note that w as dictated on 12/12/2016 for details. Moreno Lazo MD cc: [id number] TT: 01/04/2017 13:02:11 mn
--- NOTE | 2017-01-27 14:25 | PN ---
DATE: 12/11/2016 The patient is status post a stent placement secondary to sepsis and an obstructing kidney stone. PHYSICAL EXAMINATION: VITAL SIGNS: She is currently afebrile with a temperature of 98.8, still slightly tachycardic, blood pressure 176/106 and respirations 28. ABDOMEN: Soft, there is no tenderness or distention. There is no rebound or guarding. IMPRESSION AND PLAN: The patient is improving postoperatively from her sepsis. She is being seen by ID for antibiotic coverage. She is being seen by cardiology and her primary care regarding her atri al fibrillation. Urologically, the plan will be to continue her on IV fluids, IV antibiotics until s he has stabilized. When patient is medically okay and able to be discharged, she will follow up with me in the office and we will plan for stent removal and possible ureteroscopy or possible shock wave lithotripsy and then stent removal. Vipul Rivero MD cc: [id number] TT: 01/27/2017 14:24:42 Confirmation # [id number] Dictation # [id number] cn
== END 2016-12-12 20:22 | DRG 872 ==
LOC: ED 16:23 → ERH 22:12 → CCU 12-10 02:02 → 2RNO 12-11 18:21
PROVIDERS: ADMIT Internal Medicine Nephrology; ATTEND Internal Medicine Nephrology
PROC: BT1F1ZZ Fluoroscopy of Left Kidney, Ureter and Bladder using Low Osmolar Contrast (ICD-10-PCS; 2016-12-10)
PROC: 3E0F7GC Introduction of Other Therapeutic Substance into Respiratory Tract, Via Natural or Artificial Opening (ICD-10-PCS; 2016-12-10)
PROC: 0T778DZ Dilation of Left Ureter with Intraluminal Device, Via Natural or Artificial Opening Endoscopic (ICD-10-PCS; principal; 2016-12-10 01:19)
DX: A41.51 Sepsis due to Escherichia coli [E. coli] (principal); L89.322 Pressure ulcer of left buttock, stage 2; D69.6 Thrombocytopenia, unspecified; I27.2 Other secondary pulmonary hypertension; F03.90 Unspecified dementia, unspecified severity, without behavioral disturbance, psychotic disturbance, mood disturbance, and anxiety; I48.2 Chronic atrial fibrillation; I08.1 Rheumatic disorders of both mitral and tricuspid valves; N13.2 Hydronephrosis with renal and ureteral calculous obstruction; I47.2 Ventricular tachycardia; N39.0 Urinary tract infection, site not specified; B02.29 Other postherpetic nervous system involvement; L03.317 Cellulitis of buttock; N30.80 Other cystitis without hematuria; I25.10 Atherosclerotic heart disease of native coronary artery without angina pectoris; I10 Essential (primary) hypertension; E78.5 Hyperlipidemia, unspecified; Z95.5 Presence of coronary angioplasty implant and graft; Z87.440 Personal history of urinary (tract) infections; Z78.1 Physical restraint status; Z79.01 Long term (current) use of anticoagulants

== ENCOUNTER 2016-12-12 20:22 | Inpatient (IN) | payer OTHER, MEDICARE ==
[2016-12-12 21:06] VITALS: BMI 36.0
[2016-12-12] MEDS ORDERED: Albuterol-Ipratrop 3 mg / 0.5 (3 ml) UD IH PRN (21:10)
[2016-12-13] MEDS: cefTRIAXone 1 gm 1 GM/100 ML BAG IVPB SCH (05:43)
[2016-12-13] MEDS: Pantoprazole 40 mg Susp UD PO SCH (06:55)
[2016-12-13 07:58] LABS: ADD MANUAL DIFF? NO
[2016-12-13 08:05] LABS: BASO # 0.02 K/mm3 (0.0-2.0); BASO % 0.2 % (0.0-3.0); EOS # 0.1 (0.0-0.7); EOS % 0.6 % (1.5-5.0); GRAN # 7.71 (1.4-6.5); GRAN % 75.4 % (50.0-68.0); HEMATOCRIT 35.6 % (36.0-48.0); LYMPH # 1.3 (1.2-3.4); LYMPH % 12.5 % (22.0-35.0); MEAN CELL VOLUME 88.6 fL (80.0-105.0); MEAN CORPUSCULAR HEMOGLOBIN 29.9 pg (25.0-35.0); MEAN CORPUSCULAR HGB CONC 33.7 g/dl (31.0-37.0); MEAN PLATELET VOLUME 11.8 fl (7.0-11.0); MONO # 1.2 (0.1-0.6); MONO % 11.3 % (1.0-6.0); PLATELET COUNT 127 10^3/uL (120.0-450.0); RED CELL DISTRIBUTION WIDTH 15.5 % (11.5-14.5); WHITE BLOOD COUNT 10.2 10^3/ul (4.5-11.0)
[2016-12-13 08:14] LABS: ALB/GLOB RATIO 0.9 (1.1-1.8); ALKALINE PHOSPHATASE 99 U/L (38-133); ALT/SGPT 40 U/L (7-56); AST/SGOT 24 U/L (15-39); BILIRUBIN,TOTAL 1.9 mg/dL (0.2-1.3); BLOOD UREA NITROGEN 16 mg/dL (7-21); CALCIUM 9.2 mg/dL (8.4-10.5); CARBON DIOXIDE 28 mmol/L (21-33); CHLORIDE 101 mmol/L (98-107); GFR AFRICAN-AMERICAN > 60; GLUCOSE,RANDOM 88 mg/dL (70-110); POTASSIUM 3.2 mmol/L (3.6-5.0); SODIUM 136 mmol/L (132-148)
[2016-12-13 08:15] LABS: INR 2.79 (0.93-1.08); PARTIAL THROMBOPLASTIN TIME 54.5 Seconds (23.7-30.8)
--- NOTE | 2016-12-13 09:58 | PN ---
DATE: 12/13/2016 SUBJECTIVE: The patient has no complaints of any chest pain or shortness of breath. She is concerne d that she is not able to sleep. PHYSICAL EXAMINATION: VITAL SIGNS: Temperature is 98.6, pulse of 64, blood pressure 164/87, respirations 19. GENERAL: The patient comfortable, in no acute distress. HEENT: Anicteric sclerae. Moist mucosa. NECK: No JVD or adenopathy. CARDIAC: S1/S2. No murmurs. No rubs. Regular. RESPIRATORY: Clear to auscultation bilaterally. No wheezes, rales, or rhonchi. Good air entry. ABDOMEN: Bowel sounds are positive, soft, nontender, and nondistended. EXTREMITIES: No edema. Has 1+ pulses. LABS: White count of 10.2, hemoglobin is 12.0, potassium is 3.2. ASSESSMENT: 1. Sepsis secondary to Escherichia coli. 2. Left-sided kidney stone with hydroureter. 3. Status post left ureteral stent placement. 4. Atrial fibrillation, controlled. 5. Coronary artery disease. 6. Hypertension. 7. Dyslipidemia. PLAN: The patient is currently comfortable. The patient is being followed by Dr. Mac. The alexandria montes did have elevated troponins. The patient's beta blockers have been increased to 50 b.i.d. The patient has cultures that are positive for E. coli that is fairly sensitive. It is being followed by Dr. Omer. She is going to continue with aspirin. She is on metoprolol twice a day, gabapenti n and studies. She is going to continue with Rocephin for antibiotics. She is worried about her sle eping. She is on Ambien for sleep. The patient is going to have her Ulloa removed. I will also or[place] ce her on tramadol as she says that this is going to help her sleep. She wishes for me to increase h er Ambien. I did advise against this given her age and her risk of having complications. She still would like to continue the Ambien, although she understands the risks. Moreno Lazo MD cc: [id number] TT: 12/13/2016 09:57:49 Confirmation # [id number] Dictation # [id number] jn
[2016-12-13] MEDS: Potassium Chloride 20 mEq ER Tab PO SCH (10:08)
--- NOTE | 2016-12-13 12:10 | PN ---
DATE: 12/13/2016 SUBJECTIVE: The patient is seen lying in bed in the TCU. She states she is weak and tired. She is not sleeping well. She remains afebrile and denies any pain. CURRENT MEDICATIONS: Include Ambien, aspirin, DuoNeb inhaler, potassium 20 mEq daily, metoprolol 50 mg b.i.d., Neurontin 300 mg t.i.d., amlodipine 10 mg daily, Protonix 40 mg daily, Rocephin, and Ultra m. OBJECTIVE: GENERAL: She is an elderly woman who appears comfortable at rest. VITAL SIGNS: Her blood pressure is 126/86 with a pulse of 64, respirations are 14. She is afebrile. HEENT: No JVD. CHEST: A few scattered rhonchi noted. HEART: PMI displaced laterally with a systolic murmur present at lower left sternal border as well a s at the apex. ABDOMEN: Soft, nontender, normoactive bowel sounds. EXTREMITIES: No edema. DIAGNOSTIC DATA: White count 10.2, hemoglobin and hematocrit 12.0 and 35.6 with platelet count 127,0 00. INR 2.79. Potassium 3.2, which has been replaced. BUN and creatinine is 16 and 0.5. IMPRESSION: 1. Recent urosepsis, clinically improved. 2. Nephrolithiasis, status post ureteral stent placement. 3. Chronic atrial fibrillation with controlled ventricular rate. 4. Mild mitral regurgitation with severe tricuspid regurgitation. 5. Recent nonsustained ventricular tachycardia, asymptomatic. RECOMMENDATIONS: Her current medications will be continued. Increased exercise was advised. Mainte nance of potassium of greater than 4 is recommended. She was encouraged to increase physical therapy efforts while on TCU. We will continue to follow and make further recommendations as appropriate. Joel Ochoa MD cc: [id number] TT: 12/13/2016 12:09:09 Confirmation # [id number] Dictation # [id number]
--- NOTE | 2016-12-13 21:39 | CON ---
DATE: 12/13/2016 The patient was seen this morning in room 319. CHIEF COMPLAINT: Weakness times several days. HISTORY OF PRESENT ILLNESS: This is an 81-year-old female with a past medical history significant fo r herpes zoster of the left side of the neck, left nephrolithiasis, has a left ureteral stent. The p atient had a history of Escherichia coli urinary tract infection, history of coronary artery disease, history of percutaneous coronary intervention, hypertensive and dyslipidemia. The patient had gram- negative nghia bacteremia with left-sided nephrolithiasis on this admission with left ureteral stent pl acement in acute care, with transfer to transitional care for further care and infectious disease con sultation requested. REVIEW OF SYSTEMS: Reveals the patient is doing better. No fevers. She is weak. No chills, no alicia sea. PAST MEDICAL HISTORY: Is significant for herpes zoster on the left side of the neck, Escherichia col i urinary tract infection, coronary artery disease, hypertension and dyslipidemia. PAST SURGICAL HISTORY: Is significant for percutaneous coronary intervention x 2. ALLERGIES: The patient has no known allergies. PHYSICAL EXAMINATION: GENERAL: She is in bed, appearing chronically ill. VITAL SIGNS: Temperature of 99, she did have a temperature of 101 in the acute care side with a bloo d pressure of 150/80, respiratory rate of 20 and heart rate of 64. HEENT: Unremarkable. NECK: Supple. LUNGS: Have decreased breath sounds. HEART: Normal S1, S2. ABDOMEN: Soft, nontender. LABORATORY EXAMINATION: Reveals the white count is down from 17,000, it is down to 10,200 today. Th e patient did have 11% bandemia in the acute care side, which is also improved. The platelets are 12 7,000 but hemoglobin of 12. Chemistries are noted. BUN of 16, creatinine of 0.5. The patient did h ave a 34 procalcitonin. Urinalysis is significant for 20-25 WBCs. Toxicology is negative. Microbio logy reveals the blood cultures are positive for Escherichia coli that was sensitive to at 27 m m, pansensitive to ceftriaxone and also had Escherichia coli in the urine with the same sensitivity p attern, pansensitive. ASSESSMENT AND PLAN: This is an 81-year-old female who was admitted with sepsis with pansensitive Es cherichia coli bacteremia secondary to Escherichia coli urinary tract infection and left hydronephros is and status post left ureteral stent placement in a patient with a history of zoster, left side of the neck and postherpetic neuralgia, history of coronary artery disease with percutaneous coronary in tervention, hypertension and dyslipidemia. Is currently on ceftriaxone and may be able to use p.o. C ipro upon discharge. Will follow closely with you. The case was discussed with PMD. Josh Omer MD cc: 350 TT: 12/13/2016 21:38:31 Confirmation # [id number] Dictation # [id number] dn
[2016-12-14] MEDS: cefTRIAXone 1 gm 1 GM/100 ML BAG IVPB SCH (05:28)
[2016-12-14] MEDS: Pantoprazole 40 mg Susp UD PO SCH (05:31)
[2016-12-14] MEDS: Potassium Chloride 20 mEq ER Tab PO SCH (09:42)
--- NOTE | 2016-12-14 16:23 | PN ---
DATE: 12/14/2016 The patient is in bed, in no acute distress, nontoxic. PHYSICAL EXAMINATION: VITAL SIGNS: Temperature is 98, blood pressure is 159/80, respiratory rate of 20. HEENT: Unremarkable. NECK: Supple. LUNGS: Have decreased breath sounds. HEART: Normal S1, S2. ABDOMEN: Soft, nontender. LABORATORY EXAMINATION: Reveals a white count of 10,000, hemoglobin of 12, platelets of 127. Coagul ation is noted. Chemistries reveals the BUN of 16, creatinine of 0.5. ASSESSMENT AND PLAN: An 81-year-old female with sepsis with pansensitive Escherichia coli bacteremia , secondary to Escherichia coli urinary tract infection, left hydronephrosis and status post left ure teral stent placement in face of a history of zoster of the left side of face, postherpetic neuralgia , history of coronary artery disease and percutaneous coronary intervention, history of hypertension, dyslipidemia. Currently on ceftriaxone. May be able to use p.o. Cipro upon discharge. Review of o rders confirms the patient to be on ceftriaxone at this time. Josh Omer MD cc: 350 TT: 12/14/2016 16:21:55 Confirmation # [id number] Dictation # [id number] en
[2016-12-15] MEDS: cefTRIAXone 1 gm 1 GM/100 ML BAG IVPB SCH (05:26)
[2016-12-15] MEDS: Pantoprazole 40 mg Susp UD PO SCH (05:30)
[2016-12-15 06:27] VITALS: BP 163/92; PULSE 62; RESP 18; TEMP 97.8; O2SAT 94
[2016-12-15 07:17] LABS: HEMATOCRIT 38.6 % (36.0-48.0); MEAN CELL VOLUME 90.2 fL (80.0-105.0); MEAN CORPUSCULAR HEMOGLOBIN 29.9 pg (25.0-35.0); MEAN CORPUSCULAR HGB CONC 33.2 g/dl (31.0-37.0); MEAN PLATELET VOLUME 11.5 fl (7.0-11.0); RED CELL DISTRIBUTION WIDTH 15.3 % (11.5-14.5); WHITE BLOOD COUNT 10.9 10^3/ul (4.5-11.0)
[2016-12-15 07:27] LABS: ALB/GLOB RATIO 0.9 (1.1-1.8); ALKALINE PHOSPHATASE 119 U/L (38-133); ALT/SGPT 55 U/L (7-56); AST/SGOT 49 U/L (15-39); BILIRUBIN,TOTAL 1.1 mg/dL (0.2-1.3); BLOOD UREA NITROGEN 16 mg/dL (7-21); CALCIUM 9.1 mg/dL (8.4-10.5); CARBON DIOXIDE 30 mmol/L (21-33); CHLORIDE 101 mmol/L (95-110); GFR AFRICAN-AMERICAN > 60; GLUCOSE,RANDOM 99 mg/dL (70-110); POTASSIUM 3.6 mmol/L (3.6-5.0); SODIUM 138 mmol/L (132-148); TOTAL PROTEIN 6.9 g/dL (5.8-8.3)
--- NOTE | 2016-12-15 08:44 | PN ---
DATE: 12/15/2016 SUBJECTIVE: The patient has no complaints of any chest pain or shortness of breath, no headaches. S he says that she is feeling better, but she does have knee pain at times. PHYSICAL EXAMINATION: VITAL SIGNS: Temperature is 97.8, pulse is 62, blood pressure 163/92, respirations 18. GENERAL: The patient comfortable, in no acute distress. HEENT: Anicteric sclerae. Moist mucosa. NECK: No JVD or adenopathy. CARDIAC: S1/S2. No murmurs. No rubs. Regular. RESPIRATORY: Clear to auscultation bilaterally. No wheezes, rales, or rhonchi. Good air entry. ABDOMEN: Bowel sounds are positive, soft, nontender, and nondistended. EXTREMITIES: No edema. Has 1+ pulses. LABORATORY DATA: White count of 10.9, hemoglobin 10.8. ASSESSMENT: 1. Right knee pain. 2. Sepsis secondary to Escherichia coli. 3. Left-sided high kidney stone with hydroureter, status post urethral stent placement. 4. Atrial fibrillation. 5. Coronary artery disease. 6. Hypertension. 7. Dyslipidemia. 8. Sepsis secondary to Escherichia coli. PLAN: The patient is currently comfortable, is on potassium replacement and is on aspirin. The lorenza ent is on Ambien for sleep. She is receiving Neurontin for her neuropathy. She is on Norvasc for hy pertension. She is on Rocephin for antibiotics. She does have cultures that are positive for Gram-n egative in the blood and E. coli in the urine. The patient is being followed by Dr. Omer. The patient is on tramadol at night. Moreno Lazo MD cc: [id number] TT: 12/15/2016 08:43:38 Confirmation # [id number] Dictation # [id number] mn
--- NOTE | 2016-12-15 09:32 | CP.PCM.PN ---
<Willie Spencer - Last Filed: 12/15/16 09:45> Subjective - Date & Time of Evaluation Date of Evaluation: 12/15/16 Time of Evaluation: 09:00 - Subjective Subjective: Rapid Response Note Rapid response called at 0900 and DOBIE WORKER arrived at 0904 to assess patient. Patient is an 81 y/o F with past medical history of atrial fibrillation, hypertension, hyperlipidemia, coronary artery disease. She admitted to acute care for sepsis secondary to E. coli and transferred to TCU for IV antibiotics. Per nursing, a patient tech noticed the patient had left sided facial droop, left sided paralysis, right sided gaze, and slurred speech. Code stroke was called. She was able to verbalize her name and date with mild slurring. She complained of a headache and feeling tired. EKG was ordered showing atrial fibrillation with premature ventricular or aberrantly conducted complexes with a rate of 85. Chart was reviewed and found her coumadin had been stopped in preparation for procedure. She was taken to the emergency department and endorsed to the emergency physician. Vital signs: Temp- 98.7, BP 157/75, HT 82, RR 18, SpO2-97, Accucheck 209 Objective - Vital Signs/Intake and Output Vital Signs (last 24 hours): Temp Pulse Resp BP Pulse Ox 97.8 F 62 18 163/92 H 94 L 12/15/16 06:00 12/15/16 07:55 12/15/16 06:00 12/15/16 07:55 12/15/16 06:00 Intake and Output: 12/15/16 12/15/16 06:59 18:59 Intake Total 600 Balance 600 - Medications Medications: Current Medications Acetaminophen (Tylenol 325mg Tab) 650 mg PO Q4H PRN PRN Reason: mild pain Last Admin: 12/15/16 07:57 Dose: 650 mg Albuterol/Ipratropium (Duoneb 3 Mg/0.5 Mg (3 Ml) Ud) 3 ml IH [id number] PRN PRN Reason: Shortness of Breath Amlodipine Besylate (Norvasc) 10 mg PO DAILY [facility] Last Admin: 12/14/16 09:42 Dose: 10 mg Aspirin (Aspirin Chewable) 81 mg PO 0800 [facility] Last Admin: 12/15/16 07:54 Dose: 81 mg Gabapentin (Neurontin) 300 mg PO TID JAMES PRN Reason: Protocol Last Admin: 12/14/16 17:42 Dose: 300 mg Ceftriaxone Sodium (Rocephin 1 Gram Ivpb) 1 gm in 100 mls @ 100 mls/hr IVPB 0600 [facility] PRN Reason: Protocol Last Admin: 12/15/16 05:26 Dose: 100 mls/hr Metoprolol Tartrate (Lopressor) 50 mg PO BRKDIN [facility] Last Admin: 12/15/16 07:55 Dose: 50 mg Pantoprazole Sodium (Protonix Susp) 40 mg PO 0630 [facility] Last Admin: 12/15/16 05:30 Dose: 40 mg Potassium Chloride (K-Dur 20 Meq Er Tab) 20 meq PO DAILY [facility] Last Admin: 12/14/16 09:42 Dose: 20 meq Tramadol HCl (Ultram) 50 mg PO Q4 PRN PRN Reason: Pain, moderate (4-7) Zolpidem Tartrate (Ambien) 5 mg PO HS PRN; Protocol PRN Reason: Insomnia Last Admin: 12/14/16 22:20 Dose: 5 mg - Labs Labs: 12/15/16 06:20 12/15/16 06:20 PT 30.1 Seconds (9.9-11.8) H* 12/13/16 07:00 INR 2.79 (0.93-1.08) H 12/13/16 07:00 APTT 54.5 Seconds (23.7-30.8) H 12/13/16 07:00 - Constitutional Appears: No Acute Distress, Other (somnolent) - Head Exam Head Exam: ATRAUMATIC, NORMOCEPHALIC - Eye Exam Eye Exam: PERRL. absent: Normal appearance (right sided gaze) Pupil Exam: PERRL - ENT Exam ENT Exam: Mucous Membranes Moist, Normal Oropharynx - Neck Exam Neck Exam: Normal Inspection - Respiratory Exam Respiratory Exam: Clear to Ausculation Bilateral, NORMAL BREATHING PATTERN. absent: Rales, Rhonchi, Wheezes - Cardiovascular Exam Cardiovascular Exam: Irregular Rhythm (irregularly irregular), +S1, +S2. absent : Gallop, Rubs, Murmur - GI/Abdominal Exam GI & Abdominal Exam: Soft. absent: Tenderness - Extremities Exam Extremities Exam: Pedal Edema (+1 bilateral edema). absent: Normal Inspection ( left sided paralysis), Tenderness - Neurological Exam Neurological Exam: Altered, Oriented x3. absent: CN II-XII Intact (left sided facial droop, decrased sensation on left side of face, right sided gaze) Neuro motor strength exam: Left Upper Extremity: 0, Right Upper Extremity: 4, Left Lower Extremity: 0, Right Lower Extremity: 3 - Psychiatric Exam Psychiatric exam: Normal Affect, Normal Mood - Skin Skin Exam: Dry, Intact, Normal Color, Warm. absent: Cyanosis, Pallor, Rash Assessment and Plan - Assessment and Plan (Free Text) Assessment: CVA Plan: Transfer patient to ED with shelter monitor and oxygen in place. DOBIE WORKER accompanied patient to ER. Case endorsed to Dr. Rowan. Dr. Lazo notified and message left on phone. <Evelin Chawla - Last Filed: 12/15/16 10:55> Objective - Vital Signs/Intake and Output Vital Signs (last 24 hours): Temp Pulse Resp BP Pulse Ox 97.8 F 62 18 163/92 H 94 L 12/15/16 06:00 12/15/16 07:55 12/15/16 06:00 12/15/16 07:55 12/15/16 06:00 Intake and Output: 12/15/16 12/15/16 06:59 18:59 Intake Total 600 Balance 600 - Medications Medications: Current Medications Acetaminophen (Tylenol 325mg Tab) 650 mg PO Q4H PRN PRN Reason: mild pain Last Admin: 12/15/16 07:57 Dose: 650 mg Albuterol/Ipratropium (Duoneb 3 Mg/0.5 Mg (3 Ml) Ud) 3 ml IH [id number] PRN PRN Reason: Shortness of Breath Amlodipine Besylate (Norvasc) 10 mg PO DAILY [facility] Last Admin: 12/14/16 09:42 Dose: 10 mg Aspirin (Aspirin Chewable) 81 mg PO 0800 [facility] Last Admin: 12/15/16 07:54 Dose: 81 mg Gabapentin (Neurontin) 300 mg PO TID JAMES PRN Reason: Protocol Last Admin: 12/14/16 17:42 Dose: 300 mg Ceftriaxone Sodium (Rocephin 1 Gram Ivpb) 1 gm in 100 mls @ 100 mls/hr IVPB 0600 [facility] PRN Reason: Protocol Last Admin: 12/15/16 05:26 Dose: 100 mls/hr Metoprolol Tartrate (Lopressor) 50 mg PO BRKDIN [facility] Last Admin: 12/15/16 07:55 Dose: 50 mg Pantoprazole Sodium (Protonix Susp) 40 mg PO 30 [facility] Last Admin: 12/15/16 05:30 Dose: 40 mg Potassium Chloride (K-Dur 20 Meq Er Tab) 20 meq PO DAILY [facility] Last Admin: 12/14/16 09:42 Dose: 20 meq Tramadol HCl (Ultram) 50 mg PO Q4 PRN PRN Reason: Pain, moderate (4-7) Zolpidem Tartrate (Ambien) 5 mg PO HS PRN; Protocol PRN Reason: Insomnia Last Admin: 12/14/16 22:20 Dose: 5 mg - Labs Labs: 12/15/16 06:20 12/15/16 06:20 PT 30.1 Seconds (9.9-11.8) H* 12/13/16 07:00 INR 2.79 (0.93-1.08) H 12/13/16 07:00 APTT 54.5 Seconds (23.7-30.8) H 12/13/16 07:00 Attending/Attestation - Attestation I have personally seen and examined this patient.: Yes I have fully participated in the care of the patient.: Yes I have reviewed all pertinent clinical information, including history, physical exam and plan: Yes
[2016-12-15] MEDS: Potassium Chloride 20 mEq ER Tab PO SCH (10:09)
--- NOTE | 2016-12-15 11:59 | CP.PCM.PN ---
<Willie Spencer - Last Filed: 12/15/16 15:09> Subjective - Date & Time of Evaluation Date of Evaluation: 12/15/16 Time of Evaluation: 09:04 - Subjective Subjective: Rapid Response Note Rapid response called at 0900 and ACTUARIAL TECHNICIAN arrived at 0904 to assess patient. Patient is an 81 y/o F with past medical history of atrial fibrillation, hypertension, hyperlipidemia, coronary artery disease. She admitted to acute care for sepsis secondary to E. coli and transferred to TCU for IV antibiotics. Per nursing, a patient tech noticed the patient had left sided facial droop, left sided paralysis, right sided gaze, and slurred speech. Code stroke was called. She was able to verbalize her name and date with mild slurring. She complained of a headache and feeling tired. EKG was ordered showing atrial fibrillation with premature ventricular or aberrantly conducted complexes with a rate of 85. Chart was reviewed and found her coumadin had been stopped in preparation for procedure. She was taken to the emergency department and endorsed to the emergency physician. Vital signs: Temp- 98.7, BP 157/75, HT 82, RR 18, SpO2-97, Accucheck 209 Objective - Vital Signs/Intake and Output Vital Signs (last 24 hours): Temp Pulse Resp BP Pulse Ox 97.8 F 62 18 163/92 H 94 L 12/15/16 06:00 12/15/16 07:55 12/15/16 06:00 12/15/16 07:55 12/15/16 06:00 Intake and Output: 12/15/16 12/15/16 06:59 18:59 Intake Total 600 Balance 600 - Medications Medications: Current Medications Acetaminophen (Tylenol 325mg Tab) 650 mg PO Q4H PRN PRN Reason: mild pain Last Admin: 12/15/16 07:57 Dose: 650 mg Albuterol/Ipratropium (Duoneb 3 Mg/0.5 Mg (3 Ml) Ud) 3 ml IH [id number] PRN PRN Reason: Shortness of Breath Amlodipine Besylate (Norvasc) 10 mg PO DAILY [facility] Last Admin: 12/14/16 09:42 Dose: 10 mg Aspirin (Aspirin Chewable) 81 mg PO 0800 [facility] Last Admin: 12/15/16 07:54 Dose: 81 mg Gabapentin (Neurontin) 300 mg PO TID JAMES PRN Reason: Protocol Last Admin: 12/14/16 17:42 Dose: 300 mg Ceftriaxone Sodium (Rocephin 1 Gram Ivpb) 1 gm in 100 mls @ 100 mls/hr IVPB 0600 [facility] PRN Reason: Protocol Last Admin: 12/15/16 05:26 Dose: 100 mls/hr Metoprolol Tartrate (Lopressor) 50 mg PO BRKDIN [facility] Last Admin: 12/15/16 07:55 Dose: 50 mg Pantoprazole Sodium (Protonix Susp) 40 mg PO 0630 [facility] Last Admin: 12/15/16 05:30 Dose: 40 mg Potassium Chloride (K-Dur 20 Meq Er Tab) 20 meq PO DAILY [facility] Last Admin: 12/14/16 09:42 Dose: 20 meq Tramadol HCl (Ultram) 50 mg PO Q4 PRN PRN Reason: Pain, moderate (4-7) Zolpidem Tartrate (Ambien) 5 mg PO HS PRN; Protocol PRN Reason: Insomnia Last Admin: 12/14/16 22:20 Dose: 5 mg - Labs Labs: 12/15/16 06:20 12/15/16 06:20 PT 30.1 Seconds (9.9-11.8) H* 12/13/16 07:00 INR 2.79 (0.93-1.08) H 12/13/16 07:00 APTT 54.5 Seconds (23.7-30.8) H 12/13/16 07:00 - Constitutional Appears: No Acute Distress, Other (somnolent) - Head Exam Head Exam: ATRAUMATIC, NORMOCEPHALIC - Eye Exam Eye Exam: PERRL. absent: Normal appearance (right sided gaze) Pupil Exam: NORMAL ACCOMODATION, PERRL - ENT Exam ENT Exam: Mucous Membranes Moist, Normal Oropharynx - Neck Exam Neck Exam: Normal Inspection - Respiratory Exam Respiratory Exam: Clear to Ausculation Bilateral, NORMAL BREATHING PATTERN. absent: Rales, Rhonchi, Wheezes - Cardiovascular Exam Cardiovascular Exam: Irregular Rhythm (irregularly irregular), +S1, +S2. absent : Gallop, Rubs, Murmur - GI/Abdominal Exam GI & Abdominal Exam: Soft. absent: Tenderness - Extremities Exam Extremities Exam: Pedal Edema (+1 edema bilaterally). absent: Normal Inspection (left sided paralysis), Tenderness - Neurological Exam Neurological Exam: Altered, Oriented x3. absent: CN II-XII Intact (left sided facial droop, decreased sensation on left side of face, right sided gaze) Neuro motor strength exam: Left Upper Extremity: 0, Right Upper Extremity: 4, Left Lower Extremity: 0, Right Lower Extremity: 3 - Psychiatric Exam Psychiatric exam: Normal Affect, Normal Mood - Skin Skin Exam: Dry, Intact, Normal Color, Warm. absent: Cyanosis, Pallor, Rash Assessment and Plan - Assessment and Plan (Free Text) Assessment: CVA Plan: Transfer patient to ED with cardiac rehab nurse and oxygen in place. ACTUARIAL TECHNICIAN accompanied patient to ER. Case endorsed to Dr. Rowan. Dr. Lazo notified and message left on phone. NIHSS Scale ([place]) Time Performed: 09:05 - How Severe is the Stoke Baseline Level of Consciousness: 1=Drowsy LOC to Questions: 0=Both comments correct LOC to commands: 1=Obeys one correctly Best Gaze: 1=Partial gaze palsy Visual: 0=No visual loss Facial: 3=Complete unilateral paralysis Motor Arm - Left: 4=No movement Motor Arm - Right: 0=No drift Motor Leg - Left: 4=No movement Motor Leg - Right: 2=Falls before 5 sec Limb Ataxia: 1=Present Upper or Lower Sensory: 1=Mild to moderate loss Best Language: 0=No aphasia Dysarthia: 1=Mild to moderate slurring Extinction & Inattention (Neglect): 0=Normal, no object Score: 19 Risk Level: Mod/Sev Stroke Risk <Evelin Chawla - Last Filed: 12/15/16 15:34> Objective - Vital Signs/Intake and Output Vital Signs (last 24 hours): Temp Pulse Resp BP Pulse Ox 97.8 F 62 18 163/92 H 94 L 12/15/16 06:00 12/15/16 07:55 12/15/16 06:00 12/15/16 07:55 12/15/16 06:00 Intake and Output: 12/15/16 12/15/16 06:59 18:59 Intake Total 600 Balance 600 - Labs Labs: 12/15/16 06:20 12/15/16 06:20 PT 30.1 Seconds (9.9-11.8) H* 12/13/16 07:00 INR 2.79 (0.93-1.08) H 12/13/16 07:00 APTT 54.5 Seconds (23.7-30.8) H 12/13/16 07:00 Attending/Attestation - Attestation I have personally seen and examined this patient.: Yes I have fully participated in the care of the patient.: Yes I have reviewed all pertinent clinical information, including history, physical exam and plan: Yes
--- NOTE | 2016-12-15 15:35 | CARD ---
APPROVED REPORT EKG Measurement Heart [id number] <Conclusion> Atrial fibrillation with premature ventricular or aberrantly conducted complexes Rightward axis Septal infarct, age undetermined Abnormal ECG
== END 2016-12-15 14:16 | disposition short-term general hospital (02) | DRG 871 ==
LOC: TRCU 20:22
PROVIDERS: ADMIT Internal Medicine Nephrology; ATTEND Internal Medicine Nephrology
PROC: F07Z9ZZ Gait Training/Functional Ambulation Treatment (ICD-10-PCS; principal; 2016-12-13)
PROC: F07M6ZZ Therapeutic Exercise Treatment of Musculoskeletal System - Whole Body (ICD-10-PCS; 2016-12-13)
PROC: F08Z2ZZ Grooming/Personal Hygiene Treatment (ICD-10-PCS; 2016-12-13)
PROC: F08Z1ZZ Dressing Techniques Treatment (ICD-10-PCS; 2016-12-13)
DX: A41.51 Sepsis due to Escherichia coli [E. coli] (principal); I63.9 Cerebral infarction, unspecified; I47.2 Ventricular tachycardia; G81.94 Hemiplegia, unspecified affecting left nondominant side; N13.2 Hydronephrosis with renal and ureteral calculous obstruction; N39.0 Urinary tract infection, site not specified; I48.2 Chronic atrial fibrillation; E78.5 Hyperlipidemia, unspecified; B96.89 Other specified bacterial agents as the cause of diseases classified elsewhere; I08.1 Rheumatic disorders of both mitral and tricuspid valves; I10 Essential (primary) hypertension; I25.10 Atherosclerotic heart disease of native coronary artery without angina pectoris; N20.0 Calculus of kidney; R29.810 Facial weakness; Z87.440 Personal history of urinary (tract) infections; Z95.5 Presence of coronary angioplasty implant and graft; M25.561 Pain in right knee

== ENCOUNTER 2016-12-15 09:18 | Inpatient (IN) | payer MEDICARE ==
--- NOTE | 2016-12-15 09:35 | CT ---
PROCEDURE: CT HEAD WITHOUT CONTRAST. HISTORY: Code Stroke COMPARISON: 12/09/2016 TECHNIQUE: Axial computed tomography images were obtained through the head/brain without intravenous contrast. Radiation dose: Total exam DLP = 768 mGy-cm. This CT exam was performed using one or more of the following dose reduction techniques: Automated exposure control, adjustment of the mA and/or kV according to patient size, and/or use of iterative reconstruction technique. FINDINGS: HEMORRHAGE: No intracranial hemorrhage. BRAIN: No mass effect or edema. No atrophy or chronic microvascular ischemic changes. VENTRICLES: Unremarkable. No hydrocephalus. CALVARIUM: Unremarkable. PARANASAL SINUSES: Unremarkable as visualized. No significant inflammatory changes. MASTOID AIR CELLS: Unremarkable as visualized. No inflammatory changes. OTHER FINDINGS: None. IMPRESSION: No acute findings
[2016-12-15 09:41] VITALS: BMI 35.9
--- NOTE | 2016-12-15 10:04 | ED PDOC ---
Arrival/HPI - General Chief Complaint: Weakness/Neurological Deficit Time Seen by Provider: 12/15/16 09:20 Historian: Other (TCU nurse) EM Caveat: Altered Mental Status - History of Present Illness Narrative History of Present Illness (Text): 12/15/16 10:00 An 81 year old female, with history provided by TCU nurse, came to emergency department from TCU. Code stroke had been called for left side hemiparesis and slurred speech. Patient was last seen normal at 7 am. Patient was found with neurological deficits before coming to the emergency department. Patient has a history of atrial fibrillation and off Coumadin for about 5 days. Time/Duration: 1-3 hours Symptom Onset: Sudden Symptom Course: Unchanged Activities at Onset: Rest Modifying Factors (Text): none Context: Other (TCU) Associated Symptoms (Text): left sided hemiparesis and slurred speech Past Medical History - Provider Review Nursing Documentation Reviewed: Yes - Infectious Disease Hx of Infectious Diseases: None - Reproductive Menopause: Yes - Cardiac Hx Cardiac Disorders: Yes Hx Congestive Heart Failure: Yes Hx Hypertension: Yes - Pulmonary Hx Chronic Obstructive Pulmonary Disease (COPD): No - Neurological HX Cerebrovascular Accident: No - HEENT Hx HEENT Disorder: No - Renal Hx Renal Failure: No - Endocrine/Metabolic Hx Diabetes Mellitus Type 1: No Hx Diabetes Mellitus Type 2: No Hx Hypothyroidism: No - Hematological/Oncological Hx Cancer: No - Integumentary Hx Dermatological Disorder: Yes Other/Comment: Shingles on left side of neck on 04/14/16 - Musculoskeletal/Rheumatological Hx Falls: Yes - Gastrointestinal Hx Gastroesophageal Reflux: No - Genitourinary/Gynecological Hx Genitourinary Disorders: No - Psychiatric Hx Psychophysiologic Disorder: No Hx Emotional Abuse: No Hx Physical Abuse: No Hx Substance Use: No - Surgical History Hx Coronary Stent: Yes (X2) - Anesthesia Hx Anesthesia Reactions: No Hx Malignant Hyperthermia: No - Suicidal Assessment Feels Threatened In Home Enviroment: No Family/Social History - Physician Review Nursing Documentation Reviewed: Yes Family/Social History: No Known Family HX Smoking Status: Unknown If Ever Smoked Hx Alcohol Use: No Hx Substance Use: No Allergies/Home Meds Allergies/Adverse Reactions: Allergies No Known Allergies Allergy (Verified 12/15/16 11:50) Home Medications: Home Meds Medication Instructions Recorded Confirmed Gabapentin [Neurontin] 300 mg PO TID 04/14/14 12/12/16 Pravastatin Sodium [Pravachol] 80 mg PO DAILY 04/14/14 12/12/16 Warfarin [Coumadin] 2 mg PO DAILY 04/14/14 12/12/16 Warfarin [Coumadin] 3 mg PO DAILY 12/09/16 12/12/16 Review of Systems - Review of Systems Systems not reviewed;Unavailable: Other (CVA/TIA) Physical Exam Vital Signs Reviewed: Yes Vital Signs Temp Pulse Resp BP Pulse Ox 12/15/16 12:36 60 16 120/53 L 96 12/15/16 11:02 90 18 128/57 L 96 12/15/16 10:47 74 20 96 12/15/16 10:32 84 18 114/47 L 96 12/15/16 10:17 76 18 120/68 96 12/15/16 09:37 99.6 F 76 20 154/62 H 96 Temperature: Afebrile Blood Pressure: Hypertensive Pulse: Regular Respiratory Rate: Normal Appearance: Positive for: Well-Appearing, Non-Toxic, Comfortable Pain Distress: None Mental Status: Positive for: Alert and Oriented X 3 Finger Stick Blood Glucose: 170 - Systems Exam Head: Present: Atraumatic, Normocephalic Pupils: Present: PERRL Extroacular Muscles: Present: EOMI Conjunctiva: Present: Normal Mouth: Present: Moist Mucous Membranes Neck: Present: Normal Range of Motion Respiratory/Chest: Present: Clear to Auscultation, Good Air Exchange. No: Respiratory Distress, Accessory Muscle Use Cardiovascular: Present: Regular Rate and Rhythm, Normal S1, S2. No: Murmurs Abdomen: Present: Normal Bowel Sounds. No: Tenderness, Distention, Peritoneal Signs Upper Extremity: Present: Normal Inspection. No: Cyanosis, Edema Lower Extremity: Present: Normal Inspection. No: Edema Neurological: Present: Other (L hemiparesis; slurred speech). No: Speech Normal Skin: Present: Warm, Dry, Normal Color. No: Rashes Psychiatric: Present: Alert, Oriented x 3, Normal Insight, Normal Concentration Medical Decision Making ED Course and Treatment: 12/15/16 10:08 Impression: An 81 year old female altered mental status. On physical exam, patient had left sided hemiparesis and slurred speech. Differential Diagnosis include but are not limited to: TIA Plan: -- EKG -- CT head -- chest xray -- labs -- aspirin, lipitor -- Reassess and disposition Prior Visits: Notes and results from previous visits were reviewed. Patient last seen in the emergency department on 12/09/16 for evaluation of generalized weakness, nausea, headache and nausea. Case discussed w Dr. Lazo for admission to his service. Patient was accepted by Dr. Barragan to ICU. Progress Notes: EKG: Ordered, reviewed, and independently interpreted the EKG. Rate: 80 BPM Rhythm: NSR Interpretation: Rate controlled atrial fibrillation, PVC CT head: Creator : Jose Mayen MD IMPRESSION: No acute findings Chest Xray: Creator : Jose Mayen MD IMPRESSION: Moderate cardiomegaly and mild vascular congestion 12/15/16 10:13 Dr. Rodriguez states that code stroke called in TCU. Spoke to Dr. Mock, who recommended CAT scan. On reevaluation, patient's symptoms are resolved and is speaking full sentences. No neurological deficits, bilateral upper and lower extremity Spoke with Dr. Lazo in detail, who agrees and accepts patient to telemetry admission under his service. Patient is aware and agrees with plan. - Lab Interpretations Lab Results: 12/15/16 10:20 12/15/16 10:20 Lab Results 12/15/16 10:20: Sodium 139, Potassium 3.6, Chloride 100, Carbon Dioxide 30, Anion Gap 13, BUN 15, Creatinine 0.5, Est GFR ( Amer) > 60, Est GFR (Non- Af Amer) > 60, Random Glucose 137 H, Calcium 9.2, Total Bilirubin 1.0, AST 47 H , ALT 49, Alkaline Phosphatase 114, Troponin I 0.06 D, Total Protein 6.8, Albumin 3.1, Globulin 3.7, Albumin/Globulin Ratio 0.8 L, Triglycerides 142, Cholesterol 141, LDL Cholesterol Direct 87, HDL Cholesterol 26 L 12/15/16 10:20: PT 19.2 H, INR 1.78 H, APTT 36.4 H 12/15/16 10:20: WBC 10.2, RBC 4.17, Hgb 12.5, Hct 37.3, MCV 89.4, MCH 30.0, MCHC 33.5, RDW 15.1 H, Plt Count 173, MPV 10.8, Gran % 73.4 H, Lymph % (Auto) 14.4 L, [place] % (Auto) 10.4 H, Eos % (Auto) 1.3 L, Baso % (Auto) 0.5, Gran # 7.52 H, Lymph # 1.5, [place] # 1.1 H, Eos # 0.1, Baso # 0.05 I have reviewed the lab results: Yes - RAD Interpretation Radiology Orders: 12/15/16 09:21 HEAD W/O (CODE STROKE) [CT] Stat CHEST PORTABLE [RAD] Stat - EKG Interpretation Interpreted by ED Physician: Yes Type: 12 lead EKG - Medication Orders Current Medication Orders: Discontinued Medications Aspirin (Aspirin Chewable) 324 mg PO STAT STA Stop: 12/15/16 09:51 Last Admin: 12/15/16 11:00 Dose: 324 mg Atorvastatin Calcium (Lipitor) 40 mg PO STAT STA Stop: 12/15/16 09:51 Last Admin: 12/15/16 11:00 Dose: 40 mg NIHSS Scale ([place]) Time Performed: 12:43 - How Severe is the Stoke Baseline Level of Consciousness: 0=Alert LOC to Questions: 0=Both comments correct LOC to commands: 0=Obeys both correctly Best Gaze: 0=Normal Visual: 0=No visual loss Facial: 0=Normal Motor Arm - Left: 0=No drift Motor Arm - Right: 0=No drift Motor Leg - Left: 0=No drift Motor Leg - Right: 0=No drift Limb Ataxia: 0=Absent Sensory: 0=Normal Best Language: 0=No aphasia Dysarthia: 0=Normal articulation Extinction & Inattention (Neglect): 0=Normal, no object Score: 0 Risk Level: No Stroke Risk rTPA Inclusion/Exclusion - Refusal of Treatment Patient Refused Treatment: No - Inclusion Criteria for Altepase Patient is 18 years or Older: Yes The Clinical Diagnosis of Ischemic Stroke That is Causing a Potentially Disabling Neurological Deficit: No Time of Onset is Well Established to be Less Than 270 Minute Before Treatment Would Begin: Yes Risk/Benefit Discussed With Patient/Family Member Present: No - Exclusion Criteria for Altepase Uncontrolled Hypertension at Time of Treatment (Systolic BP above 185 or Diastolic BP above 110 mmHg): No - Scribe Statement The provider has reviewed the documentation as recorded by the Marlon Shaffer All medical record entries made by the Scribe were at my direction and personally dictated by me. I have reviewed the chart and agree that the record accurately reflects my personal performance of the history, physical exam, medical decision making, and the department course for this patient. I have also personally directed, reviewed, and agree with the discharge instructions and disposition. Disposition/Present on Arrival - Present on Arrival Any Indicators Present on Arrival: No History of DVT/PE: No History of Uncontrolled Diabetes: No Urinary Catheter: Yes History of Decub. Ulcer: No History Surgical Site Infection Following: None - Disposition Have Diagnosis and Disposition been Completed?: Yes Diagnosis: TIA (transient ischemic attack) Disposition: HOSPITALIZED Disposition Time: 10:10 Patient Plan: Admission Patient Problems: Current Active Problems Problem Status Onset TIA (transient ischemic attack) Acute Condition: FAIR
--- NOTE | 2016-12-15 10:06 | RAD ---
HISTORY: code stroke COMPARISON: 12/10/2016 FINDINGS: LUNGS: No active pulmonary disease. PLEURA: No significant pleural effusion identified, no pneumothorax apparent. CARDIOVASCULAR: Moderate cardiomegaly. Mild vascular congestion OSSEOUS STRUCTURES: No significant abnormalities. VISUALIZED UPPER ABDOMEN: Normal. OTHER FINDINGS: None. IMPRESSION: Moderate cardiomegaly and mild vascular congestion
[2016-12-15 10:26] LABS: ADD MANUAL DIFF? NO
[2016-12-15 10:29] LABS: BASO # 0.05 K/mm3 (0.0-2.0); BASO % 0.5 % (0.0-3.0); EOS # 0.1 (0.0-0.7); EOS % 1.3 % (1.5-5.0); GRAN # 7.52 (1.4-6.5); GRAN % 73.4 % (50.0-68.0); HEMATOCRIT 37.3 % (36.0-48.0); LYMPH # 1.5 (1.2-3.4); LYMPH % 14.4 % (22.0-35.0); MEAN CELL VOLUME 89.4 fL (80.0-105.0); MEAN CORPUSCULAR HGB CONC 33.5 g/dl (31.0-37.0); MEAN PLATELET VOLUME 10.8 fl (7.0-11.0); MONO # 1.1 (0.1-0.6); MONO % 10.4 % (1.0-6.0); PLATELET COUNT 173 10^3/uL (120.0-450.0); RED CELL DISTRIBUTION WIDTH 15.1 % (11.5-14.5); WHITE BLOOD COUNT 10.2 10^3/ul (4.5-11.0)
[2016-12-15 10:44] LABS: ALB/GLOB RATIO 0.8 (1.1-1.8); ALKALINE PHOSPHATASE 114 U/L (38-133); ALT/SGPT 49 U/L (7-56); AST/SGOT 47 U/L (15-39); BLOOD UREA NITROGEN 15 mg/dL (7-21); CALCIUM 9.2 mg/dL (8.4-10.5); CARBON DIOXIDE 30 mmol/L (21-33); CHLORIDE 100 mmol/L (98-107); CHOLESTEROL 141 mg/dL (130-200); GFR AFRICAN-AMERICAN > 60; GLUCOSE,RANDOM 137 mg/dL (70-110); POTASSIUM 3.6 mmol/L (3.6-5.0); SODIUM 139 mmol/L (132-148); TOTAL PROTEIN 6.8 g/dL (5.8-8.3)
[2016-12-15 10:45] LABS: INR 1.78 (0.93-1.08); PARTIAL THROMBOPLASTIN TIME 36.4 Seconds (23.7-30.8)
[2016-12-15 10:58] LABS: TROPONIN I 0.06 ng/mL
[2016-12-15] MEDS ORDERED: Pneumococcal 23-Valent Vaccine IM ONE (14:07)
--- NOTE | 2016-12-15 15:33 | CARD ---
APPROVED REPORT EKG Measurement Heart [id number] <Conclusion> Atrial fibrillation with premature ventricular or aberrantly conducted complexes Right axis deviation Septal infarct, age undetermined Abnormal ECG
[2016-12-15] MEDS: Enoxaparin 80 mg Syringe SC SCH (21:20)
--- NOTE | 2016-12-15 21:45 | CON ---
DATE: 12/15/2016 HISTORY OF PRESENT ILLNESS: This is an 81-year-old white female with a past medical history of conge stive heart failure and hypertension. The patient's code stroke was called. The patient was weak on the left side with slurred speech improved and CAT scan of the head was done, which was reported neg ative. The patient also has a history of atrial fibrillation. ALLERGIES: No known drug allergies. HOME MEDICATIONS: Gabapentin, Pravachol, Coumadin. REVIEW OF SYSTEMS: A 10-point review of system was negative. PHYSICAL EXAMINATION: VITAL SIGNS: Blood pressure was 154/62. HEENT: Normocephalic, atraumatic. NECK: Supple. NEUROLOGIC: Alert, awake, oriented to self and place, grandson at bedside. Pupils reactive. EOM in tact. Visual elizabeth full. No facial asymmetry. Tongue midline. Motor examination: Moves all the extremities equally. Tone normal. Deep tendon reflexes 1+. Both plantars are downgoing. Sensory a ppears intact. Cerebellar gait deferred. IMPRESSION: An 81-year-old white female with a past medical history as above, came with altered ment al status and left-sided weakness with a slurred speech. Continue present management. We will follo w up. LABORATORY DATA: WBC 10.2, hemoglobin 12.5, hematocrit 37.3, platelets 173. Sodium 139, potassium 3 .6, chloride 100, CO2 of 30, glucose 137, BUN 15, creatinine 0.5. PLAN: Continue present management. We will follow up. Jose Mock MD cc: [id number] TT: 12/15/2016 21:44:35 Confirmation # [id number] Dictation # [id number] tony
[2016-12-16] MEDS ORDERED: Oxycodone/Acetaminophen 5/325 mg Tab PO STA ×2 (02:45→21:13)
--- NOTE | 2016-12-16 07:59 | CP.PCM.PN ---
Subjective - Date & Time of Evaluation Date of Evaluation: 12/16/16 Time of Evaluation: 07:00 - Subjective Subjective: Stable on 2R. Events of yesterday noted. I spoke with Dr. Lazo. No CP, SOB, speech difficulty, weakness today. She feels OK. V/S noted. AF with mod. VR. PE: Lungs: clear Cor.: irreg. S1S2 Abd.: soft Ext.: no edema Neuro.: alert ECG 12/15: AF, Eliseo beats, NSSTW changes Labs 12/15 noted. INR = 1.78 CT head noted. BCx1 12/11 + GNR Objective - Vital Signs/Intake and Output Vital Signs (last 24 hours): Temp Pulse Resp BP Pulse Ox 98.4 F 113 H 19 131/87 96 12/16/16 06:00 12/16/16 06:00 12/16/16 06:00 12/16/16 06:00 12/15/16 12:36 Intake and Output: 12/16/16 12/16/16 06:59 18:59 Intake Total 0 Balance 0 - Medications Medications: Current Medications Amlodipine Besylate (Norvasc) 10 mg PO DAILY JAMES Aspirin (Ecotrin) 81 mg PO DAILY JAMES Atorvastatin Calcium (Lipitor) 20 mg PO DIN JAMES Enoxaparin Sodium (Lovenox) 80 mg SC Q12H JAMES PRN Reason: Protocol Last Admin: 12/15/16 21:20 Dose: 80 mg Gabapentin (Neurontin) 300 mg PO TID JAMES PRN Reason: Protocol Last Admin: 12/15/16 17:49 Dose: 300 mg Metoprolol Tartrate (Lopressor) 50 mg PO BRKDIN JAMES Pantoprazole Sodium (Protonix Susp) 40 mg PO DAILY JAMES - Labs Labs: PT 19.2 Seconds (9.9-11.8) H 12/15/16 10:20 INR 1.78 (0.93-1.08) H 12/15/16 10:20 APTT 36.4 Seconds (23.7-30.8) H 12/15/16 10:20 Assessment and Plan - Assessment and Plan (Free Text) Plan: Assessment: TIA R/O CVA AF Urosepsis/nephrolithiasis,s/p stent HBP HLD CAD/PCI/recent NSTEMI Thrombocytopenia Echo: Nl LV,Mild MR, Severe TR and PH H. Zoster Plan: As per Neuro., ID, Uro., and Dr. Lazo. Lovenox bridge until INR therapeutic AB Monitor Neuro signs OOB to chair as nadja.
--- NOTE | 2016-12-16 09:38 | HP ---
CHIEF COMPLAINT AND HISTORY OF PRESENT ILLNESS: This is an 81-year-old female who is coming into the hospital with complaints of left-sided weakness with slurred speech. The patient had a code stroke that was called on to the transitional care unit and was sent down to the ER for further evaluation. I did see the patient yesterday morning and she was fully awake, alert and able to answer questions. No weakness. She did improve with her symptoms. She has no complaints of any chest pain or shortn ess of breath. No nausea, no vomiting, no dysuria or frequency, no nocturia. REVIEW OF SYSTEMS: All other review of symptoms are within normal limits except as mentioned. ALLERGIES: No known drug allergies. HOME MEDICATIONS: Neurontin, Pravachol, Coumadin. The patient initially was admitted to the hospital because of sepsis with a left-sided kidney stone w ith hydroureter and had a stent placed and then she was in transitional care unit for rehab. PAST MEDICAL HISTORY: 1. Atrial fibrillation, on Coumadin. 2. Hypertension. 3. Dyslipidemia. 4. Coronary artery disease with stent. 5. Dyslipidemia. 6. Left-sided kidney stone with hydroureter, status post stent. SOCIAL HISTORY: She never smoked. She denies drug or alcohol abuse. FAMILY HISTORY: Noncontributory. PHYSICAL EXAMINATION: VITAL SIGNS: Temperature is 98.4, pulse of 113, blood pressure is 131/87, respirations 19. Height i s 5 feet 4 inches, weight is 209 pounds, BMI is 35.9 GENERAL: Patient lying in bed, flat, and in no apparent distress. HEAD AND NECK EXAM: Atraumatic, normocephalic. Conjunctivae are pink. Throat clear and mouth with moist mucosa. Oropharynx benign. EYES: Extraocular movements are intact. PERRLA. NECK: Supple. No JVD, thyromegaly, or adenopathy. No bruits. HEART: S1 and S2 regular rate and rhythm. No murmurs, rubs, or gallops. LUNGS: Clear to auscultation bilaterally. No wheezing rales or rhonchi appreciated. No retraction s on exam. ABDOMEN: Soft, nontender, nondistended. Bowel sounds are positive in all quadrants. No rebound. No hepatosplenomegaly. EXTREMITIES: No cyanosis, clubbing, or edema. NEURO: No facial asymmetry, tongue is midline, no uvula deviation. Power is 5/5 in upper extremity and 5/5 in lower extremity. Sensation is normal in upper extremity and lower extremity. PSYCH: Awake, alert, oriented x3. No anxiety or depression symptoms. Good insight. Normal affec t. : No CVA tenderness VASCULAR: 2+ pulses in carotid and pedal pulses. SKIN: No erythema or abnormal nodules noted. SPINE: Normal curvature. LYMPHADENOPATHY: No anterior cervical or posterior cervical adenopathy. No inguinal adenopathy. LABORATORY DATA: White count of 10.2, hemoglobin is 12.5, platelet count is 173. INR is 1.7. Chemi stry shows a sodium of 139, potassium is 3.6, creatinine is 0.5 and albumin is 3.1. CT of the head shows no acute findings. The EKG shows atrial fibrillation with PVCs. There is a rig ht axis deviation. QTc is 454. A chest x-ray done shows cardiomegaly, no infiltrates. ASSESSMENT: 1. Transient ischemic attack. 2. Left-sided kidney stone, status post stent placement. 2. Atrial fibrillation, on anticoagulation. 3. Coronary artery disease. 4. Hypertension. 5. Dyslipidemia. PLAN: The patient is currently comfortable. She is being followed by Dr. Jimenez and Dr. Mock. I appreciate the input. The patient is on aspirin. The patient is on Lipitor for dyslipidemia. The p atient is on metoprolol for his coronary artery disease. The patient is on Lovenox for anticoagulati on. The patient is on Norvasc for hypertension. The patient is on Protonix. The patient is on a he art healthy diet. She is cleared to go back to the transitional care unit. CONDITION: Stable. ACTIVITY: Increase as tolerated. Moreno Lazo MD cc: [id number] TT: 12/16/2016 09:37:11 telly
[2016-12-16] MEDS: Enoxaparin 80 mg Syringe SC SCH ×2 (09:52→21:51)
[2016-12-16] MEDS: Pantoprazole 40 mg Susp UD PO SCH (09:53)
[2016-12-16 11:48] LABS: ALB/GLOB RATIO 0.9 (1.1-1.8); ALKALINE PHOSPHATASE 126 U/L (38-133); ALT/SGPT 53 U/L (7-56); AST/SGOT 43 U/L (15-39); BILIRUBIN,TOTAL 1.1 mg/dL (0.2-1.3); BLOOD UREA NITROGEN 10 mg/dL (7-21); CALCIUM 9.6 mg/dL (8.4-10.5); CARBON DIOXIDE 34 mmol/L (21-33); CHLORIDE 97 mmol/L (98-107); GFR AFRICAN-AMERICAN > 60; GLUCOSE,RANDOM 111 mg/dL (70-110); POTASSIUM 4.1 mmol/L (3.6-5.0); SODIUM 138 mmol/L (132-148); TOTAL PROTEIN 7.6 g/dL (5.8-8.3)
[2016-12-17 01:20] VITALS: O2SAT 96
[2016-12-17] MEDS ORDERED: Oxycodone/Acetaminophen 5/325 mg Tab PO PRN (07:00)
[2016-12-17 08:13] LABS: INR 1.28 (0.93-1.08)
[2016-12-17 08:14] LABS: CHOLESTEROL 127 mg/dL (130-200)
[2016-12-17] MEDS: Pantoprazole 40 mg Susp UD PO SCH (09:20)
--- NOTE | 2016-12-17 09:41 | PN ---
DATE: 12/17/2016 SUBJECTIVE: The patient is seen lying in bed on telemetry. She states she feels comfortable. She d enies any motor deficits and feels that her speech is normal. CURRENT MEDICATIONS: Include Coumadin 5 mg daily, Ecotrin 81 mg daily, Lipitor 20 mg daily, metoprol ol 50 mg b.i.d., Lovenox 80 mg q. 12 hours, Neurontin 300 mg t.i.d., Norvasc 10 mg daily, Protonix 40 mg daily and Percocet p.r.n. OBJECTIVE: GENERAL: She is an elderly woman who appears comfortable at rest. VITAL SIGNS: Her blood pressure is 136/66 with a pulse of 80-90 in atrial fibrillation. Frequent PV Cs and short runs of nonsustained ventricular tachycardia are noted. HEENT: No JVD. CHEST: Bilateral scattered rhonchi. HEART: PMI displaced laterally with an irregularly irregular rhythm and a systolic murmur at left st ernal border. ABDOMEN: Soft, nontender, normoactive bowel sounds. EXTREMITIES: No edema. DIAGNOSTIC DATA: INR is 1.28 from this morning. Cholesterol 127, triglycerides 123, HDL 26 with an LDL of 71. IMPRESSION: 1. Status post recent transient ischemic attack, clinically improved. 2. Chronic atrial fibrillation. Resuming Coumadin therapy, currently overlapped with therapeutic Lo venox given recent event. 3. History of hypertension and hyperlipidemia. 4. Recent urosepsis with left-sided nephrolithiasis and stent placement. RECOMMENDATIONS: Her current medications should be continued. Coumadin loading should proceed. Shania enox should continue pending a therapeutic INR. Maintenance of an INR between 2.5 and 3.0 would appe ar appropriate at this time. When she needs to have her ureteral stent removed, bridging Coumadin th erapy with Lovenox would seem most appropriate given her recent TIA. We will continue to follow riri clark and make further recommendations as appropriate. Joel Ochoa MD cc: [id number] TT: 12/17/2016 09:40:19 Confirmation # [id number] Dictation # [id number] mn
--- NOTE | 2016-12-17 10:58 | PN ---
DATE: 12/17/2016 SUBJECTIVE: The patient has no complaints of any headaches or dizziness. She says she was able to s leep well yesterday. She was initially admitted to the hospital from the transitional care unit tano use of TIA. This is improved. She is on antiplatelet therapy and a statin. No headaches or dizzine ss, no weakness in the arms or the legs. PHYSICAL EXAMINATION: VITAL SIGNS: Temperature is 99, pulse of 81, blood pressure 136/66, respiration is 19. GENERAL: The patient comfortable, in no acute distress. HEENT: Anicteric sclerae. Moist mucosa. NECK: No JVD or adenopathy. CARDIAC: S1/S2. No murmurs. No rubs. Regular. RESPIRATORY: Clear to auscultation bilaterally. No wheezes, rales, or rhonchi. Good air entry. ABDOMEN: Bowel sounds are positive, soft, nontender, and nondistended. EXTREMITIES: No edema. Has 1+ pulses. ASSESSMENT: 1. Transient ischemic attack. 2. Left kidney stone, status post stent. 3. Atrial fibrillation, on anticoagulation. 4. Coronary artery disease. 5. Hypertension. 6. Dyslipidemia. PLAN: The patient is currently comfortable. She is on Ambien in the evening. She is on Coumadin fo r her anticoagulation. The patient's INR is subtherapeutic at 1.2. She is on Lovenox for anticoagul ation. She is on metoprolol. She is going to continue with Norvasc for hypertension. She is on oxy codone for pain. She is on a heart healthy diet. She is being followed by cardiology and neurology. Moreno Lazo MD cc: [id number] TT: 12/17/2016 10:05:07 Confirmation # [id number] Dictation # [id number] tn
[2016-12-17] MEDS: Enoxaparin 80 mg Syringe SC SCH (11:01)
[2016-12-17 12:21] VITALS: BP 146/76; PULSE 111; RESP 18; TEMP 98.3
--- NOTE | 2016-12-17 12:42 | PN ---
DATE: 12/17/2016 SUBJECTIVE: The patient is an 81-year-old female with a past medical history of CHF, hypertension. The patient complained of left-sided weakness and slurred speech. Symptoms improved. CAT scan of th e head was done, which was negative. ALLERGIES: The patient is not allergic to any medication. PHYSICAL EXAMINATION: Hospital bedside: NEUROLOGIC: Alert, awake, oriented x 3. No aphasia. Cranial nerves II through XII were tested. Pu pils reactive. Spontaneous movement of the extremities noted. Deep tendon reflexes 1+. Both planta rs are downgoing. IMPRESSION: An 81-year-old female with past medical history of heart failure, hypertension, had a co de stroke and symptoms improved, possible transient ischemic attack. CAT scan of the head was negati ve. PLAN: Continue present management. We will follow up. Jose Mock MD cc: [id number] TT: 12/17/2016 12:42:10 Confirmation # [id number] Dictation # [id number]
[2016-12-17] MEDS ORDERED: ceFAZolin 2 GM in Sodium Chloride 0.9% 100 ML IVPB SCH (16:45)
--- NOTE | 2016-12-17 16:57 | CP.PCM.CON ---
History of Present Illness - History of Present Illness History of Present Illness: 81 year old female with PMH of herpes zoster on the left side of the neck and left ear, CAD S/P PCI, HTN, dyslipidemia was initially admitted in [facility] because of UTI with associated gram negative bacilli bacteremia. She was transferred to [facility] to continue her medical therapy. She underwent left ureteral stent placement for a left renal stone and was doing well. Yesterday while in [facility] the patient developed sudden onset left sided weakness and she was transferred to medical floor for acute care. She is diagnosed with a Transient ischemic attack. It has now resolved and Infectious Diseases consult is requested to continue her antibiotic therapy. Currently the patient is comfortable, no more arm weakness on the left. She is afebrile, no chills, no nausea or vomiting, no headache or dizziness, no abdominal pain, no chest pain, no blurring of vision, no cough or colds, no diarrhea, no SOB. Review of Systems - Review of Systems All systems: reviewed and no additional remarkable complaints except (as per HPI ) Past Patient History - Infectious Disease Hx of Infectious Diseases: None - Past Social History Smoking Status: Never Smoked - CARDIAC Hx Cardiac Disorders: Yes Hx Congestive Heart Failure: No Hx Hypercholesterolemia: Yes Hx Hypertension: Yes - PULMONARY Hx Chronic Obstructive Pulmonary Disease (COPD): No - NEUROLOGICAL HX Cerebrovascular Accident: Yes - HEENT Hx HEENT Problems: No - RENAL Hx Renal Failure: No - ENDOCRINE/METABOLIC Hx Diabetes Mellitus Type 1: No Hx Diabetes Mellitus Type 2: No Hx Hypothyroidism: No - HEMATOLOGICAL/ONCOLOGICAL Hx Cancer: No - INTEGUMENTARY Hx Dermatological Problems: Yes Other/Comment: Shingles on left side of neck on 04/14/16. 5-17 LEFT HIP WITH IRREGULARLY SHAPED STAGE 2 PRESURE ULCER .MEASURES 1.5 X 2.5 CM. RED AREA. MILD SEROUS DRAIANGE. BILATERAL LE DARK TO LIGHT BROWNISH SKIN DISCOLORATION.EDEMA + 1.PITTING - MUSCULOSKELETAL/RHEUMATOLOGICAL Hx Arthritis: No Hx Rheumatoid Arthritis: No - GASTROINTESTINAL Hx Gastroesophageal Reflux: No - GENITOURINARY/GYNECOLOGICAL Hx Genitourinary Disorders: Yes Hx Incontinence: Yes Hx Urinary Tract Infection: Yes - PSYCHIATRIC Hx Psychophysiologic Disorder: No Hx Emotional Abuse: No Hx Physical Abuse: No Hx Substance Use: No - SURGICAL HISTORY Hx Surgeries: Yes Hx Coronary Stent: Yes (X2) Other/Comment: CARDIAC STENT X 2 - ANESTHESIA Hx Anesthesia Reactions: No Hx Malignant Hyperthermia: No Meds Allergies/Adverse Reactions: Allergies Allergy/AdvReac Type Severity Reaction Status Date / Time No Known Allergies Allergy Verified 12/15/16 11:50 - Medications Medications: Current Medications Acetaminophen (Tylenol 325mg Tab) 650 mg PO Q6H PRN PRN Reason: Pain, Mild (1-3) Last Admin: 12/17/16 09:21 Dose: 650 mg Amlodipine Besylate (Norvasc) 10 mg PO DAILY [facility] Last Admin: 12/17/16 09:21 Dose: 10 mg Aspirin (Ecotrin) 81 mg PO DAILY [facility] Last Admin: 12/17/16 09:20 Dose: 81 mg Atorvastatin Calcium (Lipitor) 20 mg PO DIN [facility] Last Admin: 12/16/16 18:12 Dose: 20 mg Enoxaparin Sodium (Lovenox) 80 mg SC Q12H [facility] PRN Reason: Protocol Last Admin: 12/17/16 11:01 Dose: 80 mg Gabapentin (Neurontin) 300 mg PO TID [facility] PRN Reason: Protocol Last Admin: 12/17/16 14:31 Dose: 300 mg Cefazolin Sodium 2 gm/ Sodium (Chloride) 100 mls @ 200 mls/hr IVPB Q8 [facility] PRN Reason: Protocol Stop: 12/27/16 16:46 Metoprolol Tartrate (Lopressor) 50 mg PO BRKDIN [facility] Last Admin: 12/17/16 07:42 Dose: 50 mg Oxycodone/Acetaminophen (Percocet 5/325 Mg Tab) 1 tab PO Q6H PRN PRN Reason: Pain, moderate (4-7) Stop: 12/20/16 07:01 Last Admin: 12/17/16 14:31 Dose: 1 tab Pantoprazole Sodium (Protonix Susp) 40 mg PO DAILY [facility] Last Admin: 12/17/16 09:20 Dose: 40 mg Warfarin Sodium (Coumadin) 5 mg PO 1800 [facility] PRN Reason: Protocol Last Admin: 12/16/16 18:12 Dose: 5 mg Zolpidem Tartrate (Ambien) 5 mg PO HS PRN; Protocol PRN Reason: Insomnia Last Admin: 12/16/16 21:51 Dose: 5 mg Physical Exam - Constitutional Appears: Non-toxic, No Acute Distress - Head Exam Head Exam: NORMAL INSPECTION - ENT Exam ENT Exam: Mucous Membranes Moist - Neck Exam Neck exam: Negative for: Lymphadenopathy, Meningismus - Respiratory Exam Respiratory Exam: Decreased Breath Sounds - Cardiovascular Exam Cardiovascular Exam: +S1, +S2 - GI/Abdominal Exam GI & Abdominal Exam: Soft. absent: Tenderness Results - Vital Signs Recent Vital Signs: Last Vital Signs Temp 98.3 F 12/17/16 12:00 Pulse 111 H 12/17/16 12:00 Resp 18 12/17/16 12:00 BP 146/76 12/17/16 12:00 Pulse Ox 96 12/17/16 06:00 - Labs Result Diagrams: 12/15/16 10:20 12/16/16 11:30 Labs: Laboratory Results - last 24 hr 12/16/16 12/17/16 12/17/16 21:27 07:20 07:20 PT 13.8 H INR 1.28 H POC Glucose (mg/dL) 120 H Triglycerides 123 Cholesterol 127 L LDL Cholesterol Direct 71 HDL Cholesterol 26 L 12/17/16 12/17/16 07:33 11:25 PT INR POC Glucose (mg/dL) 113 H 103 Triglycerides Cholesterol LDL Cholesterol Direct HDL Cholesterol Assessment & Plan - Assessment and Plan (Free Text) Plan: Assessment Sepsis secondary to E. coli bacteremia associated with UTI and left nephrolithiasis S/P left ureteral stent placement Acute transient ischemic attack with transient left sided weakness history of urinary tract infection with E. coli history of herpes zoster on the left side of the neck and left ear and post- herpetic neuralgia CAD S/P PCI HTN dyslipidemia Plan Will continue antibiotics with Cefazolin (day 7 of therapy since stent placement , to complete 2 weeks of therapy) since the E.coli in the blood and urine are sensitive to it Will monitor clinically
--- NOTE | 2017-01-04 14:20 | DS ---
This is an 81-year-old female who was admitted because of a TIA. Please see the note that was dictat ed on 12/17/2016 for discharge details. Moreno Lazo MD cc: [id number] TT: 01/04/2017 14:19:33 en
--- NOTE | 2017-01-09 10:45 | PN ---
DATE: 12/16/2016 ADDENDUM This is an addendum to a note that was written on the patient's admission on 12/16/2016. The patient was discharged after she had a TIA. She was sent to [facility] and she was on aspirin for her TIA. The patient is also going to continue on her Lipitor. Moreno Lazo MD cc: [id number] TT: 01/09/2017 08:33:57 Confirmation # [id number] Dictation # [id number] tn
== END 2016-12-17 18:27 | DRG 69 ==
LOC: ED 09:18 → ERH 10:48 → 2RNO 12:51
PROVIDERS: ADMIT Internal Medicine Nephrology; ATTEND Internal Medicine Nephrology
DX: G45.9 Transient cerebral ischemic attack, unspecified (principal); R47.81 Slurred speech; R53.1 Weakness; D69.6 Thrombocytopenia, unspecified; B02.29 Other postherpetic nervous system involvement; I11.0 Hypertensive heart disease with heart failure; I50.9 Heart failure, unspecified; I48.2 Chronic atrial fibrillation; N13.2 Hydronephrosis with renal and ureteral calculous obstruction; E78.5 Hyperlipidemia, unspecified; I25.10 Atherosclerotic heart disease of native coronary artery without angina pectoris; I25.2 Old myocardial infarction; Z79.01 Long term (current) use of anticoagulants; Z79.82 Long term (current) use of aspirin; Z95.5 Presence of coronary angioplasty implant and graft; Z87.440 Personal history of urinary (tract) infections

== ENCOUNTER 2017-01-06 11:16 | Inpatient (IN) | payer MEDICARE ==
[2017-01-06] MEDS ORDERED: Sodium Chloride 0.9% 1,000 ML IV STA (11:30)
[2017-01-06] MEDS ORDERED: Cefepime 1gm in NS 100ml 1 GM/100 ML BAG IVPB STA (11:30)
[2017-01-06] MEDS ORDERED: Levalbuterol 1.25 MG/3 ML Inhal Soln UD IH STA ×3 (11:31→14:38)
[2017-01-06] MEDS ORDERED: Ipratropium 0.02% Inhal Soln (0.5 mg/2.5 ml) UD IH STA ×3 (11:31→14:38)
[2017-01-06 11:33] VITALS: BMI 37.8
--- NOTE | 2017-01-06 11:34 | ED PDOC ---
Arrival/HPI - General Time Seen by Provider: 01/06/17 11:18 Historian: Patient - History of Present Illness Narrative History of Present Illness (Text): 01/06/17 11:21 Latrice Christine is an 81 year old female, whose past medical history includes CAD , Dyslipidemia, kidney stones with a left ureteral stent, hypertension, and A fib on coumadin, who presents to the emergency department after being sent from rehab [facility] for shortness of breath, persistent coughs, and chest congestion for 3 days after being recently hospitalized multiple times. Patient states that she experiences associated dizziness, weakness, nausea, dry heaves, and a lack of appetite. She notes that her shortness of breath worsens when she is lying down. Patient endorses that she goes to a [facility] for temporary rehabilitation. Patient denies any back pain, abdominal pain, urinary symptoms, or any other complaint at this time. Time/Duration: < week (3 days) Symptom Onset: Gradual Symptom Course: Unchanged Severity Level: Mild Activities at Onset: Light Context: Home Past Medical History - Provider Review Nursing Documentation Reviewed: Yes - Infectious Disease Hx of Infectious Diseases: None - Cardiac Hx Congestive Heart Failure: Yes - Pulmonary Hx Chronic Obstructive Pulmonary Disease (COPD): No - Neurological HX Cerebrovascular Accident: No - HEENT Hx HEENT Disorder: No - Renal Hx Renal Disorder: No - Endocrine/Metabolic Hx Diabetes Mellitus Type 1: No Hx Diabetes Mellitus Type 2: No Hx Hypothyroidism: No - Hematological/Oncological Hx Cancer: No - Integumentary Hx Dermatological Disorder: Yes Other/Comment: Shingles on left side of neck on 04/14/16. 5-17 LEFT HIP WITH IRREGULARLY SHAPED STAGE 2 PRESURE ULCER .MEASURES 1.5 X 2.5 CM. RED AREA. MILD SEROUS DRAIANGE. BILATERAL LE DARK TO LIGHT BROWNISH SKIN DISCOLORATION.EDEMA + 1.PITTING - Musculoskeletal/Rheumatological Hx Musculoskeletal Disorders: Yes (LUMBAR RADICULOPATHY,SCIATICA) Hx Unsteady Gait: Yes (CANE WALKER) - Gastrointestinal Hx Gastroesophageal Reflux: No - Genitourinary/Gynecological Hx Genitourinary Disorders: No - Psychiatric Hx Psychophysiologic Disorder: No Hx Emotional Abuse: No Hx Physical Abuse: No Hx Substance Use: No - Surgical History Hx Coronary Stent: Yes (X2) Other/Comment: CARDIAC STENT X 2 - Anesthesia Hx Anesthesia Reactions: No Hx Malignant Hyperthermia: No - Suicidal Assessment Feels Threatened In Home Enviroment: No Family/Social History - Physician Review Nursing Documentation Reviewed: Yes Family/Social History: No Known Family HX Smoking Status: Never Smoked Hx Alcohol Use: No Hx Substance Use: No Allergies/Home Meds Allergies/Adverse Reactions: Allergies No Known Allergies Allergy (Verified 01/06/17 11:34) Home Medications: Home Meds Medication Instructions Recorded Confirmed Gabapentin [Neurontin] 300 mg PO TID 04/14/14 01/06/17 Metoprolol Tartrate [Lopressor] 50 mg PO BID 12/15/16 01/06/17 amLODIPine [Norvasc] 10 mg PO DAILY 12/15/16 01/06/17 Albuterol/Ipratropium [Duoneb 3 3 ml IH DAILY 01/06/17 01/06/17 MG/3 Ml-0.5 MG/3 Ml 3 Ml] Atorvastatin [Lipitor] 20 mg PO DAILY 01/06/17 01/06/17 Furosemide [Lasix] 40 mg PO DAILY 01/06/17 01/06/17 levoFLOXacin [Levaquin] 500 mg PO DAILY 01/06/17 01/06/17 oxyCODONE/Acetaminophen [Percocet 1 tab PO PRN PRN 01/06/17 01/06/17 5/325 mg Tab] Review of Systems - Physician Review All systems were reviewed & negative as marked: Yes - Review of Systems Constitutional: absent: Fevers, Night Sweats Eyes: absent: Vision Changes ENT: absent: Hearing Changes Respiratory: SOB, Cough, Other (Dry heaves) Cardiovascular: absent: Chest Pain Gastrointestinal: Nausea, Appetite Changes. absent: Abdominal Pain Genitourinary Female: absent: Hematuria, Urine Output Changes, Vaginal Bleeding , Vaginal Discharge Musculoskeletal: absent: Back Pain, Neck Pain Skin: absent: Rash, Pruritis Neurological: Dizziness Endocrine: absent: Polyuria Hemo/Lymphatic: absent: Easy Bleeding Psychiatric: absent: Depression Physical Exam Vital Signs Reviewed: Yes Vital Signs Temp Pulse Resp BP Pulse Ox 01/06/17 15:07 128/80 01/06/17 14:35 128/80 01/06/17 12:45 80 L 01/06/17 11:17 101.1 F H 89 18 138/54 L 87 L O2 saturation is 80% on room air Temperature: Febrile Blood Pressure: Hypotensive Pulse: Regular Respiratory Rate: Tachypneic Appearance: Positive for: Ill-Appearing Pain Distress: None Mental Status: Positive for: Alert and Oriented X 3 - Systems Exam Head: Present: Atraumatic, Normocephalic Pupils: Present: PERRL Conjunctiva: Present: Normal Mouth: Present: Dry (mucous membranes) Pharnyx: Present: Normal. No: ERYTHEMA Neck: Present: Normal Range of Motion. No: JVD Respiratory/Chest: Present: Wheezes (Diffuse), Rhonchi (Scattered), Tachypneic, Other (Tubular decrease in Right lower lobe) Cardiovascular: Present: Irregular Rhythm. No: Regular Rate and Rhythm, Murmurs , Normal S1, S2 (Irregularly irregular S1, S2) Abdomen: Present: Normal Bowel Sounds. No: Tenderness, Distention, Peritoneal Signs Back: Present: Normal Inspection Upper Extremity: Present: Normal Inspection. No: Cyanosis, Edema Lower Extremity: Present: Edema (Bilateral Trace Edema) Neurological: Present: GCS=15, CN II-XII Intact, Speech Normal Skin: Present: Warm, Dry, Normal Color. No: Rashes Psychiatric: Present: Alert, Oriented x 3, Normal Insight, Normal Concentration Medical Decision Making ED Course and Treatment: 01/06/17 11:21 Impression: 81 year old female sent in from [facility] for shortness of breath, persistent coughs, and chest congestion for 3 days. Differential Diagnosis include but are not limited to: Pneumonia vs. CHF vs. COPD/Bronchitis Plan: -- EKG -- Chest X-ray -- VBG, Blood Culture -- Urinalysis, Urine Culture -- Labs -- Atrovent, Xopenex, Maxipime, Solu-Medrol, Vancomycin, and IV Fluids -- Reassess and disposition Prior Visits: Notes and results from previous visits were reviewed. Patient last seen in ED on 12/15/16 for called for left side hemiparesis and slurred speech prior to arrival sent from TCU. Patient was admitted to hospitalist care for further evaluation. Progress Notes: EKG: Ordered, reviewed, and independently interpreted the EKG. Rate : 82 BPM Rhythm : A Fib Interpretation : PVCs with right axis deviation and low QRS voltage. No ST-T wave changes. Comparison : No ST-T wave changes compared with 12/15/16 01/06/17 12:44 Chest X-ray: Creator : Jose Mayen MD FINDINGS: LUNGS:There is a right lower lobe perihilar infiltrate. The left lung is clear PLEURA:No significant pleural effusion identified, no pneumothorax apparent. CARDIOVASCULAR:Normal. OSSEOUS STRUCTURES:No significant abnormalities. VISUALIZED UPPER ABDOMEN:Normal. OTHER FINDINGS:None. IMPRESSION: Right lower lobe infiltrate, probable pneumonia 01/06/17 13:13 Patient with pneumonia, as noted on chest x-ray, admitted for IV antibiotics. Delay in bloodwork results, which just came back. Code Sepsis called at 13:10. Will increase hydration per Code Sepsis protocol. Case was discussed with Dr. Lazo for admission. 01/06/17 14:28 Patient was given aggressive hydration per Code Sepsis protocol. No history of CHF. As patient was receiving 3rd liter of normal saline, she became short of breath. Repeat lung exam sounds similar to initial exam. Concern is that patient is beginning to go into CHF. Will stop hydration at this time. Given nebs, lasix, and starting Bipap. Patient will be evaluated by ICU attending, Dr. Shrestha 01/06/17 14:30 Patient on monitor having several episodes of nonsustained v-tach - discussed with Dr. Lopes for consult. 01/06/17 15:22 Patient accepted by ICU for admission. Rediscussed with Dr. Lazo. Patient is much more comfortable on Bipap and is tolerating it well with resolution of tachypnea. - Critical Care Critical Care Minutes: 45 minutes - Lab Interpretations Lab Results: 01/06/17 12:00 01/06/17 12:00 Lab Results 01/06/17 12:00: Sodium 137, Chloride 97 L, Potassium 3.7, Carbon Dioxide 31, Anion Gap 13, BUN 9, Creatinine 0.6, Est GFR ( Amer) > 60, Est GFR (Non- Af Amer) > 60, Random Glucose 110, Calcium 9.3, Phosphorus 3.0, Magnesium 1.8, Total Bilirubin 1.1, AST 23, ALT 34, Alkaline Phosphatase 140 H, Lactate Dehydrogenase 499, Total Creatine Kinase 29 L, Troponin I < 0.01 D, NT-Pro-B Natriuret Pep 3280 H, Total Protein 7.3, Albumin 3.8, Globulin 3.5, Albumin/ Globulin Ratio 1.1 01/06/17 12:00: pO2 35, VBG pH 7.40, VBG pCO2 55.0, VBG HCO3 34.1 H, VBG Total CO2 35.8 H, VBG O2 Sat (Calc) 73.2 H, VBG Base Excess 7.5 H, VBG Potassium 6.8 H *, Sodium 133.0, Chloride 102.0, Glucose 109 H, Lactate 3.2 H, FiO2 21.0, Venous Blood Potassium 6.8 H* 01/06/17 12:00: PT 44.2 H*, INR 4.09 H*, APTT 40.8 H 01/06/17 12:00: WBC 7.0 D, RBC 3.98, Hgb 12.2, Hct 36.3, MCV 91.2, MCH 30.7, MCHC 33.6, RDW 16.1 H, Plt Count 175, MPV 11.1 H, Gran % 75.6 H, Lymph % (Auto) 8.7 L, Spink % (Auto) 15.6 H, Eos % (Auto) 0.0 L, Baso % (Auto) 0.1, Gran # 5.27 , Lymph # 0.6 L, Spink # 1.1 H, Eos # 0.0, Baso # 0.01 I have reviewed the lab results: Yes - RAD Interpretation Radiology Orders: 01/06/17 11:22 CHEST PORTABLE [RAD] Stat - Medication Orders Current Medication Orders: Amlodipine Besylate (Norvasc) 10 mg PO DAILY [facility] Last Admin: 01/06/17 15:07 Dose: 10 mg Aspirin (Aspirin Chewable) 81 mg PO DAILY [facility] Last Admin: 01/06/17 15:06 Dose: 81 mg Atorvastatin Calcium (Lipitor) 20 mg PO HS JAMES Furosemide (Lasix) 40 mg PO DAILY [facility] Gabapentin (Neurontin) 300 mg PO TID JAMES PRN Reason: Protocol Doxycycline Hyclate 100 mg/ (Sodium Chloride) 100 mls @ 100 mls/hr IVPB Q12 JAMES PRN Reason: Protocol Metoprolol Tartrate (Lopressor) 50 mg PO BID [facility] Oxycodone/Acetaminophen (Percocet 5/325 Mg Tab) 1 tab PO Q6 PRN PRN Reason: Pain, moderate (4-7) Stop: 01/09/17 18:01 Discontinued Medications Acetaminophen (Tylenol 325mg Tab) 975 mg PO STAT STA Stop: 01/06/17 11:58 Last Admin: 01/06/17 12:15 Dose: 975 mg Furosemide (Lasix) 20 mg IVP STAT STA Stop: 01/06/17 14:30 Last Admin: 01/06/17 14:35 Dose: 20 mg Vancomycin HCl 1 gm/ Sodium (Chloride) 250 mls @ 133.333 mls/hr IV STAT STA PRN Reason: Protocol Stop: 01/06/17 13:21 Last Admin: 01/06/17 13:17 Dose: 133.333 mls/hr Cefepime HCl (Maxipime 1gm) 1 gm in 100 mls @ 100 mls/hr IVPB Q24H STA PRN Reason: Protocol Stop: 01/06/17 12:29 Last Admin: 01/06/17 11:56 Dose: 100 mls/hr Sodium Chloride (Sodium Chloride 0.9%) 1,000 mls @ 100 mls/hr IV .Q10H STA Stop: 01/06/17 21:29 Last Admin: 01/06/17 11:55 Dose: 100 mls/hr Sodium Chloride 2,990 ml/ IV (SUPPLIES) 2,990 mls @ 5,988 mls/hr IV ONCE ONE PRN Reason: 60 ML/KG/HR Stop: 01/06/17 13:14 Last Admin: 01/06/17 12:00 Dose: 5,988 mls/hr Ipratropium [place] (Atrovent) 0.5 mg IH STAT STA Stop: 01/06/17 11:32 Last Admin: 01/06/17 11:31 Dose: 0.5 mg Ipratropium [place] (Atrovent) 0.5 mg IH STAT STA Stop: 01/06/17 11:32 Last Admin: 01/06/17 11:45 Dose: 0.5 mg Ipratropium [place] (Atrovent) 0.5 mg IH STAT STA Stop: 01/06/17 14:39 Last Admin: 01/06/17 14:40 Dose: 0.5 mg Levalbuterol HCl (Xopenex) 1.25 mg IH STAT STA Stop: 01/06/17 11:32 Last Admin: 01/06/17 11:58 Dose: 1.25 mg Levalbuterol HCl (Xopenex) 1.25 mg IH STAT STA Stop: 01/06/17 11:32 Last Admin: 01/06/17 11:59 Dose: 1.25 mg Levalbuterol HCl (Xopenex) 1.25 mg IH STAT STA Stop: 01/06/17 14:39 Last Admin: 01/06/17 15:05 Dose: 1.25 mg Methylprednisolone (Solu-Medrol) 125 mg IVP STAT STA Stop: 01/06/17 11:31 Last Admin: 01/06/17 11:56 Dose: 125 mg - Scribe Statement The provider has reviewed the documentation as recorded by the Marlon Lock Provider Scribe Attestation: All medical record entries made by the Marlon were at my direction and personally dictated by me. I have reviewed the chart and agree that the record accurately reflects my personal performance of the history, physical exam, medical decision making, and the department course for this patient. I have also personally directed, reviewed, and agree with the discharge instructions and disposition. Disposition/Present on Arrival - Present on Arrival Any Indicators Present on Arrival: Yes History of DVT/PE: No History of Uncontrolled Diabetes: No Urinary Catheter: Yes History Surgical Site Infection Following: None - Disposition Have Diagnosis and Disposition been Completed?: Yes Diagnosis: Pneumonia Disposition: HOSPITALIZED Disposition Time: 12:34 Patient Plan: ICU Patient Problems: Current Active Problems Problem Status Onset Pneumonia Acute Condition: CRITICAL
--- NOTE | 2017-01-06 12:25 | CARD ---
APPROVED REPORT EKG Measurement Heart [id number] <Conclusion> Atrial fibrillation with premature ventricular or aberrantly conducted complexes Right axis deviation Low voltage QRS Cannot rule out Anteroseptal infarct, age undetermined Abnormal ECG
--- NOTE | 2017-01-06 12:32 | RAD ---
HISTORY: sob COMPARISON: 12/15/2016 FINDINGS: LUNGS: There is a right lower lobe perihilar infiltrate. The left lung is clear PLEURA: No significant pleural effusion identified, no pneumothorax apparent. CARDIOVASCULAR: Normal. OSSEOUS STRUCTURES: No significant abnormalities. VISUALIZED UPPER ABDOMEN: Normal. OTHER FINDINGS: None. IMPRESSION: Right lower lobe infiltrate, probable pneumonia
[2017-01-06 12:53] LABS: ADD MANUAL DIFF? NO
[2017-01-06 12:56] LABS: VENOUS BLOOD GAS BASE EXCESS 7.5 mmol/L (0.0-2.0)
[2017-01-06 13:00] LABS: BASO # 0.01 K/mm3 (0.0-2.0); BASO % 0.1 % (0.0-3.0); GRAN # 5.27 (1.4-6.5); GRAN % 75.6 % (50.0-68.0); HEMATOCRIT 36.3 % (36.0-48.0); LYMPH # 0.6 (1.2-3.4); LYMPH % 8.7 % (22.0-35.0); MEAN CELL VOLUME 91.2 fL (80.0-105.0); MEAN CORPUSCULAR HEMOGLOBIN 30.7 pg (25.0-35.0); MEAN CORPUSCULAR HGB CONC 33.6 g/dl (31.0-37.0); MEAN PLATELET VOLUME 11.1 fl (7.0-11.0); MONO # 1.1 (0.1-0.6); MONO % 15.6 % (1.0-6.0); PLATELET COUNT 175 10^3/uL (120.0-450.0); RED CELL DISTRIBUTION WIDTH 16.1 % (11.5-14.5)
[2017-01-06 13:58] LABS: ALB/GLOB RATIO 1.1 (1.1-1.8); ALKALINE PHOSPHATASE 140 U/L (38-133); ALT/SGPT 34 U/L (7-56); AST/SGOT 23 U/L (15-39); BILIRUBIN,TOTAL 1.1 mg/dL (0.2-1.3); BLOOD UREA NITROGEN 9 mg/dL (7-21); CALCIUM 9.3 mg/dL (8.4-10.5); CARBON DIOXIDE 31 mmol/L (21-33); CHLORIDE 97 mmol/L (98-107); GFR AFRICAN-AMERICAN > 60; GLUCOSE,RANDOM 110 mg/dL (70-110); MAGNESIUM 1.8 mg/dL (1.7-2.2); PARTIAL THROMBOPLASTIN TIME 40.8 Seconds (23.7-30.8); POTASSIUM 3.7 mmol/L (3.6-5.0); SODIUM 137 mmol/L (132-148); TOTAL PROTEIN 7.3 g/dL (5.8-8.3)
[2017-01-06 14:01] LABS: INR 4.09 (0.93-1.08)
[2017-01-06 14:16] LABS: TROPONIN I < 0.01 ng/mL
[2017-01-06] MEDS ORDERED: Oxycodone/Acetaminophen 5/325 mg Tab PO PRN (14:41)
[2017-01-06 15:41] LABS: VENOUS BLOOD GAS BASE EXCESS 4.5 mmol/L (0.0-2.0)
[2017-01-06 15:42] LABS: PH,URINE 6.5 (4.7-8.0); URINE APPEARANCE CLEAR (CLEAR); URINE BILIRUBIN NEGATIVE (NEGATIVE); URINE BLOOD LARGE (NEGATIVE); URINE COLOR YELLOW (YELLOW); URINE GLUCOSE (UA) NEGATIVE (NEGATIVE); URINE KETONE NEGATIVE (NEGATIVE); URINE LEUKOCYTE ESTERASE LARGE Leu/uL (NEGATIVE); URINE PROTEIN NEGATIVE mg/dL (<30 mg/dL); URINE UROBILINOGEN 0.2 E.U./dL (<1 E.U./dL)
[2017-01-06 16:57] LABS: URINE AMORPHOUS SEDIMENT FEW; URINE BACTERIA MOD (NEG); URINE RBC 15 - 20 /hpf (0-2); URINE WBC 20 - 25 /hpf (0-6)
--- NOTE | 2017-01-06 17:01 | RAD ---
HISTORY: worsening sob COMPARISON: Chest x-ray performed 01/06/17 TECHNIQUE: Chest, one view. FINDINGS: LUNGS: Small right greater than left layering pleural effusions and associated atelectasis/ infiltrates. Mild pulmonary venous congestion. No definite pneumothorax. Please note that chest x-ray has limited sensitivity for the detection of pulmonary masses. CARDIOVASCULAR: Cardiomegaly. Atherosclerotic calcification of the aortic knob. OSSEOUS STRUCTURES: Degenerative changes. VISUALIZED UPPER ABDOMEN: Unremarkable. OTHER FINDINGS: None. IMPRESSION: Small right greater than left layering pleural effusions and associated atelectasis/ infiltrates. Mild pulmonary venous congestion.
[2017-01-06] MEDS ORDERED: Potassium Chloride 20 mEq ER Tab PO STA (18:38)
--- NOTE | 2017-01-06 19:13 | PCM.SEPTIC ---
Sepsis Progress Note - Reassessment Type Date of Evaluation: 01/06/17 Time of Evaluation: 19:05 Reassessment Type: Non-invasive reassessment - Non Invasive Reassessment Were the most recent vital sign reviewed: Yes Vital Sign (Latest): Temp Pulse Resp BP Pulse Ox 99.7 F H 106 H 27 H 147/64 97 01/06/17 18:47 01/06/17 18:47 01/06/17 18:47 01/06/17 18:47 01/06/17 18:06 Cardiovascular: Yes: Chest Non Tender, Edema (trace LE edema), Tachycardia, Other (irregular rhythm). No: Murmur Respiratory: Yes: Normal Breath Sounds. No: Respiratory Distress Capillary Refill: Normal (Less than 2 sec) Skin: Warm, Dry
[2017-01-06] MEDS ORDERED: MethylPREDNISolone 40 mg Vial IVP STA (19:28)
[2017-01-06] MEDS ORDERED: NOREPINEPHRINE BIT/0.9 % NACL 4 MG/250 ML BAG IV PRN (19:31)
--- NOTE | 2017-01-06 19:48 | CON ---
DATE: 01/06/2017 This is an 81-year-old lady with history of afib (on Coumadin), coronary artery disease, hypercholesterolemia, kidney stones, who presented to [facility] ER with increased shortness of breath, cough with purulent sputum production that was associated with dizziness, weakness, nausea. Shortness of breath appears to be worse in the supine position. No abdominal pain, no urinary symptoms, no back pain. The shortness of breath and cough were ongoing for about 3 days. MEDICATIONS AT HOME: Percocet, Levaquin, Lasix, Lipitor, Norvasc, potassium, metoprolol, Neurontin, aspirin. ALLERGIES: NKDA. PAST MEDICAL HISTORY: Hypertension, coronary artery disease, hypercholesterolemia. FAMILY HISTORY: Noncontributory. SOCIAL HISTORY: No alcohol or illicit drug abuse. No tobacco smoking. REVIEW OF SYSTEMS: Revealed 12 organ system other than mentioned in history of present illness is negative. PHYSICAL EXAMINATION: GENERAL: The patient is on BiPAP 12/6 with FiO2 60% and O2 sat 96%. VITAL SIGNS: Blood pressure 120/80, temperature 101.1, respiratory rate 18. HEAD AND NECK: Atraumatic. LUNGS: Clear to auscultation bilaterally. HEART: Regular rate and rhythm. S1, S2 normal. ABDOMEN: Soft, nontender, nondistended. MUSCULOSKELETAL: The patient moves all extremities spontaneously. SKIN: Moist. PSYCHIATRIC: The patient is alert and oriented x 3. LABORATORY DATA: WBC 7, hemoglobin 12.2, platelet count 175. Sodium 137, potassium 3.7, chloride 97, carbon dioxide 31, BUN 9, creatinine 0.6, glucose 110. AST 23, ALT 34, alkaline phosphatase 140. Troponin less than 0.01, albumin 3.8. Leukocyte esterase large. Chest x-ray showed right lower lobe infiltrate. Chest x-ray showed atrial fibrillation (INR 4). ASSESSMENT AND PLAN: This is an 81-year-old lady who initially presented with sepsis related to community-acquired pneumonia/right lobe infiltrate. After lactic acid level came back about 3, code sepsis was called. The patient received 30 mL/kg fluid resuscitation after which she developed flash pulmonary edema with increased shortness of breath, crackles bilaterally. Fluids were stopped. Lasix was given and BiPAP was applied. The patient's respiratory status substantially improved. Her oxygenation substantially improved as well. She did have nonsustained wide complex tachycardia which, however, resolved. Cardiology consult was called. Septic workup continued including blood culture , urine culture and procalcitonin. Broad spectrum antibiotics started. ID consult was requested. BiPAP continued. The patient will be admitted to ICU until respiratory status stabilized. We will have low threshold for intubation. As the patient is hemodynamically stable, we will proceed with conservative fluid and oxygen management. We will continue with deep venous thrombosis and gastrointestinal prophylaxis. We will continue with low threshold for intubation. ccm time 40 min Baldev Shrestha MD cc: [id number] TT: 01/06/2017 19:47:22 Confirmation # [id number] Dictation # [id number] mn MTDD
[2017-01-06] MEDS: Meropenem 1g/NS 100mL IVPB 1 GM/100 ML PIGGYBACK IVPB SCH (22:02)
[2017-01-06] MEDS: Vancomycin 1gm in NS 250ml 1 GM/250 ML BAG IVPB SCH (22:05)
[2017-01-07] MEDS ORDERED: Levalbuterol 0.63 MG/3 ML Inhal Soln UD IH PRN (07:06)
[2017-01-07] MEDS: Meropenem 1g/NS 100mL IVPB 1 GM/100 ML PIGGYBACK IVPB SCH ×3 (07:13→21:18)
--- NOTE | 2017-01-07 07:31 | CON ---
DATE: 01/06/2017 REASON FOR CONSULTATION: Cardiac evaluation, rule out congestive heart failure, coronary artery dise ase, possible pneumonia. BRIEF CLINICAL HISTORY: This is an 81-year-old female with a past medical history of coronary artery disease, status post a stent; chronic atrial fibrillation, on anticoagulation; history of kidney sto ne, status post ureteral stent, who came in to the ER referred from rehab because of feeling very wea k, lethargic, very short of breath and feverish feeling; more short of breath on lying down. PAST MEDICAL HISTORY: Significant for coronary artery disease, status post stent in 1998; repeat cat heterization 5 years ago, essentially negative. Had a recent stress test in 2013 that shows inferola teral ischemia. The patient underwent a cardiac catheterization and angioplasty from the left radial approach. At that time, the cardiac catheterization, that is 04/20/2014, showed a left main free of significant disease, moderate LAD, large caliber artery, mid LAD 90% stenosis; circumflex is dominan t artery essentially free of significant disease; RCA is small, codominant, essentially free of signi ficant disease; LV gram showed ejection fraction of 55-60%. The patient underwent PTCA with drug-elu ting stent of the LAD. Rest of the hospital course was uneventful. History of chronic atrial fibril lation, on Coumadin. PREVIOUS CARDIAC WORKUP: As mentioned, patient had a cardiac catheterization after a stress test, , that shows positive so patient had cardiac catheterization with a stent in the LAD. SOCIAL HISTORY: Denies smoking. Denies any history of alcohol abuse. CURRENT MEDICATIONS: The patient is taking at home oxycodone, Levaquin, amlodipine, potassium, metop rolol, gabapentin, atorvastatin, aspirin, albuterol. REVIEW OF SYSTEMS: 14-point review of systems is negative except as per HPI. PHYSICAL EXAMINATION: VITAL SIGNS: Temperature afebrile, heart rate 80, blood pressure 131/67. HEENT: PERRLA. Extraocular muscles intact. NECK: Supple. No carotid bruits or thyromegaly. CHEST: Clear to auscultation. HEART: S1, S2 regular. ABDOMEN: Soft. EXTREMITIES: Clubbing and cyanosis negative. LABORATORY DATA: WBC 7, hemoglobin 12.2, hematocrit 36.3, platelet count 175. Chemistry shows sodiu m ____, potassium 3.____, chloride 97, carbon dioxide ____, anion gap of 13, BUN 9, creatinine 0.6. BNP 3280. IMPRESSION: Right lower lobe pneumonia. Chest x-ray consistent with right lower lobe pneumonia. Ch ronic atrial fibrillation. Electrocardiogram: Atrial fibrillation. Sepsis, pneumonia, history of co ronary artery disease status post percutaneous transluminal coronary angioplasty, preserved left vent ricular function on the last catheterization. RECOMMENDATION: Continue broad spectrum antibiotic. Gentle hydration. Age, probably patient should be upstairs on the floor, closely monitor. Continue metoprolol, continue baby aspirin, continue tiki rvastatin. Will get echo to assess LV function. Will follow with you. Will get lipid profile, TSH, hemoglobin A1c; follow up CPK, troponin. Thank you, Dr. Lazo, for providing the opportunity in taking care of the patient. Will supplemen t potassium. Maurizio Lopes MD cc: [id number] TT: 01/07/2017 07:30:31 Confirmation # [id number] Dictation # [id number] mn
[2017-01-07 07:32] LABS: TROPONIN I 0.01 ng/mL
[2017-01-07 07:33] LABS: ALB/GLOB RATIO 1.1 (1.1-1.8); ALKALINE PHOSPHATASE 132 U/L (38-133); ALT/SGPT 34 U/L (7-56); AST/SGOT 23 U/L (15-39); BILIRUBIN,TOTAL 1.1 mg/dL (0.2-1.3); BLOOD UREA NITROGEN 10 mg/dL (7-21); CALCIUM 9.5 mg/dL (8.4-10.5); CARBON DIOXIDE 33 mmol/L (21-33); CHLORIDE 100 mmol/L (98-107); CHOLESTEROL 126 mg/dL (130-200); GFR AFRICAN-AMERICAN > 60; GLUCOSE,RANDOM 126 mg/dL (70-110); MAGNESIUM 1.8 mg/dL (1.7-2.2); PHOSPHOROUS 2.8 mg/dL (2.5-4.5); POTASSIUM 3.3 mmol/L (3.6-5.0); SODIUM 140 mmol/L (132-148); TOTAL PROTEIN 7.4 g/dL (5.8-8.3)
[2017-01-07 07:37] LABS: HEMATOCRIT 35.6 % (36.0-48.0); MEAN CELL VOLUME 89.9 fL (80.0-105.0); MEAN CORPUSCULAR HEMOGLOBIN 30.1 pg (25.0-35.0); MEAN CORPUSCULAR HGB CONC 33.4 g/dl (31.0-37.0); MEAN PLATELET VOLUME 10.5 fl (7.0-11.0); RED CELL DISTRIBUTION WIDTH 15.4 % (11.5-14.5)
[2017-01-07] MEDS ORDERED: Potassium Chloride 20 mEq ER Tab PO ONE ×2 (08:35→13:00)
--- NOTE | 2017-01-07 09:12 | RAD ---
HISTORY: follow up COMPARISON: 01/06/2017 FINDINGS: LUNGS: Right lower lobe infiltrate and probable small effusion PLEURA: No significant pleural effusion identified, no pneumothorax apparent. CARDIOVASCULAR: Mild cardiomegaly and mild vascular congestion OSSEOUS STRUCTURES: No significant abnormalities. VISUALIZED UPPER ABDOMEN: Normal. OTHER FINDINGS: None. IMPRESSION: Vascular congestion with minimal right lower lobe infiltrate and effusion
[2017-01-07] MEDS: Vancomycin 1gm in NS 250ml 1 GM/250 ML BAG IVPB SCH ×2 (09:18→21:19)
[2017-01-07] MEDS ORDERED: Albuterol-Ipratrop 3 mg / 0.5 (3 ml) UD IH STA (09:29)
[2017-01-07] MEDS: Budesonide 0.5 mg/2 ml Inhal Susp UD IH SCH ×2 (09:46→19:30)
[2017-01-07 10:19] LABS: INR 4.52 (0.93-1.08)
--- NOTE | 2017-01-07 10:46 | PN ---
DATE: 01/07/2017 REASON FOR CONSULTATION AND FOLLOWUP: Cardiac evaluation for congestive heart failure, coronary caty ry disease, possible pneumonia, chronic atrial fibrillation. BRIEF CLINICAL HISTORY: This is an 81-year-old female with a past medical history significant for co ronary artery disease, status post stent; chronic atrial fibrillation, on anticoagulation; history of kidney stone, status post ureteral stent, who came to the Emergency Room after being referred from [facility] facility because of very weak and lethargic, fever, chills and hypotension, so code sepsis was c alled because lactate came back positive. Fluid was given. The patient went into pulmonary edema. Lasix was given, cleared. The patient was upgraded to ICU. The patient remains on CPAP. Now patien t is much awake, alert. Denies any chest pain, shortness of breath. Hemodynamically stable. PHYSICAL EXAMINATION: VITAL SIGNS: Temperature afebrile, heart rate 82, blood pressure 164/69. HEENT: PERRLA. Extraocular muscles intact. NECK: Supple. No carotid bruits. No thyromegaly. CHEST: Clear to auscultation. HEART: S1, S2 regular. ABDOMEN: Soft. EXTREMITIES: Clubbing and cyanosis negative. BLOOD WORKUP: WBC 5, hemoglobin 11.9, hematocrit 35.6, platelet count 151. Chemistry shows sodium 1 40, potassium 3.3, chloride 100, carbon dioxide 33, anion gap of 10, BUN 10, creatinine 0.5. Troponi n 0.01 x 2, negative. TSH 0.45. Triglyceride 82, total cholesterol 126, LDL 56, HDL 40. Repeat chest x-ray shows improvement in pneumonia, still appears mildly congested and cephalization c onsistent with CHF. The patient had a recent echo 12/10/2016 that showed dilated RV, RA, mildly dila oscar LA, normal LV size and systolic function, moderate to severe tricuspid regurgitation, moderate to severe pulmonary hypertension, mild MR, RV systolic pressure reported at 64, calculated ejection fra ction reported as normal. IMPRESSION: Sepsis, community-acquired pneumonia. Fluid resuscitation was given, went into congesti ve heart failure, Lasix was given ____ respiratory status improved, was on continuous positive airway pressure. Much awake and alert. History of coronary artery disease, status post cardiac catheteriz ation 04/20/2014 at that time revealed high grade stenosis left anterior descending which was success fully done percutaneous transluminal coronary angioplasty with a drug-eluting stent, circumflex a dom inant vessel essentially free of significant disease, right coronary artery a nondominant small vesse l free of significant disease, left ventricular ejection fraction at that time 55-60%; chronic atrial fibrillation, on anticoagulation. Yesterday, INR was supratherapeutic; Coumadin was on hold. Today , INR is pending. RECOMMENDATION: Will give an extra dose of Lasix now and resume p.o. Lasix from tomorrow. Supplemen t potassium as needed. Going to transfer to telemetry. Repeat chest x-ray tomorrow. Continue antib iotic. Will follow with you. Thank you, Dr. Lazo, for providing the opportunity in taking care of this patient. Depending upo n PT/INR, we will do the Coumadin dose. Maurizio Lopes MD cc: [id number] TT: 01/07/2017 10:45:59 Confirmation # [id number] Dictation # [id number] mn
--- NOTE | 2017-01-07 11:28 | CON ---
DATE: 01/07/2017 REASON FOR CONSULTATION: Pneumonia. REFERRING PHYSICIAN: Dr. Moreno Lazo. History is obtained via extensive discussion with the nurse. I have also discussed the case with the patient at length, and reviewed the chart at length. HISTORY OF PRESENT ILLNESS: The patient is an 81-year-old female with past medical history significant for coronary artery disease, status post multiple stents, hyperlipidemia, kidney stones with a left ureteral stent, hypertension, atrial fibrillation on Coumadin, who presented to [facility]--- transferred from the alf-- for increasing shortness of breath at rest, dyspnea on exertion, cough, and sputum production for the past 3 days. There is no history of chest pain, coughing up of blood or chest pain, made worse with deep respirations. The patient did present to the Emergency Room with fevers. No history of chills or infectious exposure. No history of night sweats, weight loss or appetite change prior to the above events. No history of calf pains. No history of syncope or diaphoresis. No history of recent travel or trauma. REVIEW OF SYSTEMS: The patient does state to nausea and dry heaves. No urinary complaints. No new neurological or musculoskeletal complaints. Rest of review of systems is negative. ALLERGIES: No known allergies. SOCIAL HISTORY: Negative for tobacco, negative for alcohol. FAMILY HISTORY: No inheritable diseases. HOME MEDICATIONS: Include Percocet, Levaquin, Lasix, DuoNeb, Lipitor, Norvasc, Lopressor, Neurontin, aspirin, Coumadin. PHYSICAL EXAMINATION: GENERAL: The patient is currently in the ICU and on BiPAP. She appears awake and alert, and comfortable this morning. VITAL SIGNS: Temperature is 98.3, pulse 73, respirations 18, blood pressure 165 /85. Oxygen saturation on BiPAP is 97%. HEENT: Normocephalic, atraumatic. NECK: No JVD. CARDIOVASCULAR: Systolic ejection murmur at the lower left sternal border. Questionable S3 gallop. LUNGS: Crackles at both bases. Minimal bilateral rhonchi. No wheezing. EXTREMITIES: Positive for mild edema. No cyanosis, no clubbing. Calves are nontender to palpation. GASTROINTESTINAL: Abdomen is soft, nontender, nondistended. Bowel sounds are positive. SKIN: No acute rash. NEUROLOGIC: Limited at the present time. PERTINENT LABORATORY DATA: There are 2 chest x-rays in the system for review. The first x-ray reveals a right lower lobe infiltrate. The subsequent x-ray also reveals a right lower lobe infiltrate. However, on this most recent film, there is an increase in pulmonary vascular congestive changes. CBC: White count 7.0, hemoglobin 12.2, hematocrit 36.3, platelets of 175. INR 4.09. Arterial blood gas was done on BiPAP. Results are: pH 7.40, pCO2 of 49, pO2 of 214. Complete metabolic profile: Chloride 97, alkaline phosphatase 140, B- type natriuretic peptide 3280. Rest of the metabolic profile is within normal limits. IMPRESSION: 1. Probable right lower lobe pneumonia. 2. Sepsis syndrome. 3. Congestive heart failure. 4. Respiratory failure. 5. Coronary artery disease. 6. Cardiac arrhythmias. PLAN: The patient presents to [facility], transferred from the alf, with worsening pulmonary symptoms for the past 3 days. The patient also presented to [facility] with high fevers. Subsequent evaluation(in the ER) revealed an increased lactate level and a code sepsis was called. Subsequent to fluid resuscitation, the patient became more short of breath. Subsequent evaluation was consistent with acute congestive heart failure/pulmonary edema. Upon review of the laboratory data, there was a significant rise in the B-type natriuretic peptide. Again, I did discuss the case with the night nurse at length. After receiving Lasix, the patient's clinical status improved significantly. I did review both of the chest films-- noted above. I will also order a repeat chest x-ray for this morning. The patient remains on BiPAP this morning with very adequate arterial blood gases. She appears significantly improved compared to yesterday. I will discuss possible discontinuation of the BiPAP with the ICU team in the next few moments. On physical exam, only mild bronchospasm is noted. I will continue with Xopenex nebulizer treatments, as well as inhaled Pulmicort. The patient remains on antibiotic therapy as per infectious disease. Temperatures are resolving. Repeat a.m. labs are pending. Input by Dr. Shrestha (ICU) is noted. Cardiology evaluation with Dr. Lopes has also been ordered. Procalcitonin is also ordered. Again, the patient does appear clinically improved this morning. I will discuss the above with the entire ICU team in the next few moments. I will also discuss the above with Dr. Lazo. Thank you very much for this pulmonary consultation. Francisco J Bowden MD cc: [id number] TT: 01/07/2017 11:27:16 Confirmation # [id number] Dictation # [id number] MELO
[2017-01-07] MEDS: Levalbuterol 0.63 MG/3 ML Inhal Soln UD IH SCH ×3 (13:05→19:30)
--- NOTE | 2017-01-07 13:23 | PQF CHF ---
This form is a permanent part of the medical record Dr. Lopes, Your documentation includes CHF as a diagnosis, noting patient has a preserved LVF from previous cardiac testing. Please specify if this is diastolic dysfunction and severity of CHF present. Clarification of your documentation is requested to better reflect the severity of illness and intensity of treatment of your patient. Indicators present [x] Diagnosis of CHF and/or history of CHF [x] BNP > 200 [x] Imaging Finding of Pulmonary Edema /Pleural Effusions [] Fluid/Volume Overload [] Pitting edema [] Ejection Fraction < 40% (Indicative of Systolic Heart Failure) [x] Ejection Fraction > 40% (Indicative of Diastolic Heart Failure) [] Dyspnea / Orthopenea / Paroxysmal Nocturnal Dyspnea [] Other: Location in the medical record that reflects the above clinical findings: [] Treatment Provided: [] PHYSICIAN'S RESPONSE Based on your medical judgment of the clinical indicators outlined above, are you treating this patient for a known or suspected: [] Acute CHF [] Systolic [] Diastolic [] Combined [] Chronic CHF [] Systolic [] Diastolic [] Combined [] Acute on Chronic CHF []Systolic [] Diastolic [] Combined [] CHF due hypertension [] Acute systolic []Chronic systolic [] Acute/ chronic systolic [] Other, please indicate: [] [] If Unable to Determine, please check the box, sign and date. Present On Admission (POA) Indicator: [] Present at the time of admission [] Not present at the time of admission [] Clinically Undetermined In responding to this query, please exercise your independent professional judgment. The fact that a question is asked does not imply that any particular answer is desired or expected. Thank you for your clarification on this documentation. If you have any questions please call:[ ] * Thank you, [ ]Joshua Gaines [facility] #[id number] telephone order clerk room service LORIE
--- NOTE | 2017-01-07 13:30 | PQF RESP ---
This form is a permanent part of the medical record Dr. Bowden, Your consult on this patient includes respiratory failure as a diagnosis. Can you please specify severity of the respiratory failure so that accurate acuity is coded. Clarification of your documentation is requested to better reflect the severity of illness and intensity of treatment of your patient. Indicators present [] Use of Home Oxygen [x] Respiratory rate > 28 or <8/min (Labored respirations) [] PCO2 > 50 mm Hg or (Hypercapnia) (somnolence) [] PaO2 < 60 mm Hg or Hypoxemia (confusion) [] ABG blood gas pH < 7.35 [] SpO2 < 90% sat on Room Air [] Cyanosis [x] Unable to Speak in Full Sentences x[] Use of Accessory Muscles / Tripoding [] Wheezing [] Other: [] Location in the medical record that reflects the above clinical findings: [] Treatment Provided: [] PHYSICIAN'S RESPONSE Based on your medical judgment of the clinical indicators outlined above, are you treating this patient for a known or suspected: x[] Acute Respiratory Failure (hypoxia or hypercapnia) [] Chronic Respiratory Failure (hypoxia or hypercapnia) [] Acute on Chronic Respiratory Failure (hypoxia or hypercapnia) [] Hypoxemia please specify ACUTE, CHRONIC or ACUTE on CHRONIC [] Other []_ [] If unable to determine, please check the box, sign and date. Present On Admission (POA) Indicator: [] Present at the time of admission [] Not present at the time of admission [] Clinically Undetermined In responding to this query, please exercise your independent professional judgment. The fact that a question is asked does not imply that any particular answer is desired or expected. Thank you for your clarification on this documentation. If you have any questions please call:[ ] * Thank you, [ ]Joshua Gaines [facility] #[id number] geropsychologist Chronic Respiratory Failure Description: Respiratory failure is a syndrome in which the respiratory system fails in one or both of its gas exchange functions: oxygenation and carbon dioxide elimination. In theory, respiratory failure is defined as a Pa02 value of <60 mm/Hg or a PaC02 of >50 mm/Hg. However, these values may be affected by renal compensation. Respiratory failure may be acute or chronic. While acute respiratory failure is characterized by life-threatening derangement in arterial blood gases and acid-base balance, the manifestations of chronic respiratory failure are less dramatic and may not be as readily apparent. Classifications: Respiratory failure may be classified as hypoxemic (usually characterized by Pa02 of <60 mm/Hg) or hypercapnic (usually characterized by PaC02 >50 mm/Hg) and either may be acute or chronic. Chronic hypercapnic respiratory failure develops over time and allows for renal compensation and an increase in bicarbonate concentration; therefore the pH is usually only slightly decreased. The distinction between acute and chronic hypoxemic respiratory failure cannot readily be made on the basis of ABGs; the clinical markers of chronic hypoxemia, such as polythycemia or cor pulmonale suggest a long standing disorder (chronic hypoxemic respiratory failure). Clinical Indicators: dyspnea at rest or "chronic" dyspnea, concomitant conditions such as polycythemia or cor pulmonale, requirement for continuous oxygen support, forced expiratory volume in one second (FEV1) of 49 or less, pursed lip breathing, "barrel" chest, hyperinflation by CXR, muscle wasting, malnutrition/obesity, poor exercise capacity, peripheral edema, description as a "blue bloater" (usually associated with chronic, obstructive bronchitis) or "pink puffer" (usually associated with emphysema) Risks: Chronic Hypoxemic Respiratory Failure - COPD, pulmonary fibrosis, asthma , pulmonary arterial hypertension, granulomatous lung diseases, congenital heart disease, bronchiectasis, kyphoscoliosis, obesity; Chronic Hypercapnic Respiratory Failure - COPD, severe asthma, myasthenia gravis, polyneuropathy, polio, head and cervical spine injuries, obesity hypoventilation syndrome. Treatment: supplemental oxygen, bronchodilators, corticosteroids, adequate nutrition, lung transplant References: Am. J. Respir. Crit. Care Med. "Global Strategy for the Diagnosis, Management and Prevention of COPD: GOLD Exectuive Summary," Jase Mercado Anzueto - 2007; Proceedings of the [place] [employer] "Mechanisms and Measurements of Dyspnea in COPD," Audra - 2006; WebMD; Respiratory Failure, Jesus Medina MD - 02/2006; Ruiz's Principles of Internal Medicine, 17th edition. Acute Respiratory Failure Acute Respiratory Failure indicators include: ~Respirations >28 ~Air hunger ~Use of accessory muscles of respiration ~Inability to speak in full sentences Cyanosis ~Pulse ox <90% RA or <95% on O2 pH <7.35 or >7.45 ~pO2 < 60 mm Hg (or 10mm below COPD patient's baseline) ~pCO2 >50mm Hg (or 10mm above COPD patient's baseline) "Respiratory failure may be assigned as a principal diagnosis when it is the condition established after study to be chiefly responsible for occasioning admission to the hospital. The fact that the respiratory failure was managed without intubation and mechanical ventilation does not preclude its use." [facility], 3rd Qtr., 1988, p. 7 MTDD
[2017-01-07] MEDS ORDERED: Albuterol-Ipratrop 3 mg / 0.5 (3 ml) UD IH SCH (14:00)
--- NOTE | 2017-01-07 17:53 | CP.CCUPN ---
<Zavala,Lilliana - Last Filed: 01/07/17 18:45> CCU Subjective - Physician Review Events Since Last Encounter (Free Text): 01/07/17 17:47 Patient seen and examined this AM at bedside. Patient wore BiPAP all night, was afebrile with stable vitals overnight. During exam patient is on 3.5L O2 per NC and was able to converse without any respiratory distress or hypoxia. Patient denies any chest pain, and SOB and cough have largely improved. Patient denies any back pain, nausea, vomiting, abdominal pain, diarrhea, constipation, dysuria , hematuria CCU Objective - Vital Signs / Intake & Output Vital Signs (Last 4 hours): Vital Signs Pulse Resp BP Pulse Ox 01/07/17 17:37 86 142/86 01/07/17 15:00 75 26 H 156/69 H 93 L 01/07/17 14:50 75 15 95 01/07/17 14:40 67 16 95 01/07/17 14:30 85 21 93 L 01/07/17 14:20 81 20 93 L 01/07/17 14:10 80 21 93 L 01/07/17 14:00 79 22 135/77 92 L 01/07/17 13:50 101 H 92 L Intake and Output (Last 8hrs): Intake & Output 01/07/17 01/07/17 01/07/17 06:59 14:59 22:59 Intake Total 950 Output Total 800 Balance 150 Intake: IV 550 Left Forearm 550 Oral 400 Output: Urine 800 Urethral ([place]ll[place]) 800 Other: Voiding Method Indwelling Catheter # Bowel Movements 0 - Physical Exam Head: Positive for: Atraumatic, Normocephalic Pupils: Positive for: PERRL Conjunctiva: Positive for: Normal Mouth: Positive for: Moist Mucous Membranes Pharnyx: Positive for: Normal. Negative for: ERYTHEMA Nose (External): Positive for: Atraumatic Neck: Positive for: Normal Range of Motion. Negative for: JVD Respiratory/Chest: Positive for: Wheezes (Diffuse), Rhonchi (Scattered) Cardiovascular: Positive for: Irregular Rhythm. Negative for: Regular Rate and Rhythm, Murmurs, Normal S1, S2 (Irregularly irregular S1, S2) Abdomen: Positive for: Normal Bowel Sounds. Negative for: Tenderness, Distention, Peritoneal Signs Back: Positive for: CVA Tenderness Upper Extremity: Positive for: Normal Inspection. Negative for: Cyanosis, Edema Lower Extremity: Positive for: Edema (Bilateral Trace Edema), NORMAL PULSES. Negative for: CALF TENDERNESS Neurological: Positive for: GCS=15, CN II-XII Intact, Speech Normal Skin: Positive for: Warm, Dry, Normal Color. Negative for: Rashes Psychiatric: Positive for: Alert, Oriented x 3, Normal Insight, Normal Concentration - Medications Active Medications: Active Medications Generic Name Dose Route Start Last Admin Trade Name Freq PRN Reason Stop Dose Admin Amlodipine Besylate 10 mg 01/06/17 15:00 01/07/17 09:16 Norvasc PO 10 mg DAILY JAMES Administration Aspirin 81 mg 01/06/17 14:45 01/07/17 09:17 Aspirin Chewable PO 81 mg DAILY JAMES Administration Atorvastatin Calcium 20 mg 01/06/17 22:00 01/06/17 22:04 Lipitor PO 20 mg HS JAMES Administration Budesonide 0.5 mg 01/07/17 08:00 01/07/17 09:46 Pulmicort Respules IH 0.5 mg [id number] JAMES Administration Furosemide 40 mg 01/08/17 10:00 Lasix PO DAILY JAMES Gabapentin 300 mg 01/06/17 18:00 01/07/17 17:39 Neurontin PO 300 mg TID JAMES Administration Protocol Doxycycline Hyclate 100 mg/ 100 mls @ 100 mls/hr 01/06/17 22:00 01/07/17 10: 16 Sodium Chloride IVPB 100 mls/hr Q12 JAMES Administration Protocol Meropenem 1g/NS 100mL IVPB 1 gm in 100 mls @ 100 mls/hr 01/06/17 22:00 13:08 Meropenem 1g/Ns 100ml Ivpb IVPB 01/13/17 22:01 100 mls/hr Q8 JAMES Administration Protocol Vancomycin HCl 1 gm in 250 mls @ 167 mls/hr 01/06/17 22:00 01/07/17 09:18 Vancomycin 1gm IVPB 167 mls/hr Q12 JAMES Administration Protocol Levalbuterol HCl 0.63 mg 01/07/17 08:00 01/07/17 13:06 Xopenex IH 0.63 mg [id number] JAMES Administration Levalbuterol HCl 0.63 mg 01/07/17 07:06 Xopenex IH Q2 PRN Shortness of Breath Metoprolol Tartrate 50 mg 01/06/17 18:00 01/07/17 17:37 Lopressor PO 50 mg BID JAMES Administration Oxycodone/Acetaminophen 1 tab 01/06/17 14:41 Percocet 5/325 Mg Tab PO 01/09/17 18:01 Q6 PRN Pain, moderate (4-7) - Patient Studies Lab Studies: Lab Studies 01/07/17 01/07/17 01/07/17 Range/Units 09:40 06:30 06:30 WBC (4.5-11.0) 10^3/ul RBC (3.5-6.1) 10^6/uL Hgb (12.0-16.0) gm/dL Hct (36.0-48.0) % MCV (80.0-105.0) fL MCH (25.0-35.0) pg MCHC (31.0-37.0) g/dl RDW (11.5-14.5) % Plt Count (120.0-450.0) 10^3/uL MPV (7.0-11.0) fl PT 48.8 H* (9.9-11.8) Seconds INR 4.52 H* (0.93-1.08) Sodium (132-148) mmol/L Potassium (3.6-5.0) mmol/L Chloride (98-107) mmol/L Carbon Dioxide (21-33) mmol/L Anion Gap (10-20) BUN (7-21) mg/dL Creatinine (0.5-1.4) mg/dL Est GFR ( Amer) Est GFR (Non-Af Amer) Random Glucose (70-110) mg/dL Hemoglobin A1c 5.5 (4.2-6.5) % Calcium (8.4-10.5) mg/dL Phosphorus (2.5-4.5) mg/dL Magnesium (1.7-2.2) mg/dL Total Bilirubin (0.2-1.3) mg/dL AST (15-39) U/L ALT (7-56) U/L Alkaline Phosphatase (38-133) U/L Lactate Dehydrogenase (333-699) U/L Total Creatine Kinase (35-230) U/L Troponin I ng/mL Total Protein (5.8-8.3) g/dL Albumin (3.0-4.8) g/dL Globulin gm/dL Albumin/Globulin Ratio (1.1-1.8) Triglycerides (35-160) mg/dL Cholesterol (130-200) mg/dL LDL Cholesterol Direct (0-129) mg/dL HDL Cholesterol (29-60) mg/dL Procalcitonin (0.19-0.49) NG/ML TSH 3rd Generation 0.45 L (0.46-4.68) mIU/mL 01/07/17 01/07/17 01/07/17 Range/Units 06:30 06:30 06:30 WBC 5.0 D (4.5-11.0) 10^3/ul RBC 3.96 (3.5-6.1) 10^6/uL Hgb 11.9 L (12.0-16.0) gm/dL Hct 35.6 L (36.0-48.0) % MCV 89.9 (80.0-105.0) fL MCH 30.1 (25.0-35.0) pg MCHC 33.4 (31.0-37.0) g/dl RDW 15.4 H (11.5-14.5) % Plt Count 151 (120.0-450.0) 10^3/uL MPV 10.5 (7.0-11.0) fl PT (9.9-11.8) Seconds INR (0.93-1.08) Sodium 140 (132-148) mmol/L Potassium 3.3 L (3.6-5.0) mmol/L Chloride 100 (98-107) mmol/L Carbon Dioxide 33 (21-33) mmol/L Anion Gap 10 (10-20) BUN 10 (7-21) mg/dL Creatinine 0.5 (0.5-1.4) mg/dL Est GFR ( Amer) > 60 Est GFR (Non-Af Amer) > 60 Random Glucose 126 H (70-110) mg/dL Hemoglobin A1c (4.2-6.5) % Calcium 9.5 (8.4-10.5) mg/dL Phosphorus 2.8 (2.5-4.5) mg/dL Magnesium 1.8 (1.7-2.2) mg/dL Total Bilirubin 1.1 (0.2-1.3) mg/dL AST 23 (15-39) U/L ALT 34 (7-56) U/L Alkaline Phosphatase 132 (38-133) U/L Lactate Dehydrogenase 432 (333-699) U/L Total Creatine Kinase < 20 L (35-230) U/L Troponin I 0.01 ng/mL Total Protein 7.4 (5.8-8.3) g/dL Albumin 3.8 (3.0-4.8) g/dL Globulin 3.6 gm/dL Albumin/Globulin Ratio 1.1 (1.1-1.8) Triglycerides 82 (35-160) mg/dL Cholesterol 126 L (130-200) mg/dL LDL Cholesterol Direct 56 (0-129) mg/dL HDL Cholesterol 40 (29-60) mg/dL Procalcitonin 0.12 L (0.19-0.49) NG/ML TSH 3rd Generation (0.46-4.68) mIU/mL Laboratory Results - last 24 hr 01/07/17 01/07/17 01/07/17 06:30 06:30 06:30 WBC 5.0 D RBC 3.96 Hgb 11.9 L Hct 35.6 L MCV 89.9 MCH 30.1 MCHC 33.4 RDW 15.4 H Plt Count 151 MPV 10.5 PT INR Sodium 140 Potassium 3.3 L Chloride 100 Carbon Dioxide 33 Anion Gap 10 BUN 10 Creatinine 0.5 Est GFR ( Amer) > 60 Est GFR (Non-Af Amer) > 60 Random Glucose 126 H Hemoglobin A1c Calcium 9.5 Phosphorus 2.8 Magnesium 1.8 Total Bilirubin 1.1 AST 23 ALT 34 Alkaline Phosphatase 132 Lactate Dehydrogenase 432 Total Creatine Kinase < 20 L Troponin I 0.01 Total Protein 7.4 Albumin 3.8 Globulin 3.6 Albumin/Globulin Ratio 1.1 Triglycerides 82 Cholesterol 126 L LDL Cholesterol Direct 56 HDL Cholesterol 40 Procalcitonin 0.12 L TSH 3rd Generation 01/07/17 01/07/17 01/07/17 06:30 06:30 09:40 WBC RBC Hgb Hct MCV MCH MCHC RDW Plt Count MPV PT 48.8 H* INR 4.52 H* Sodium Potassium Chloride Carbon Dioxide Anion Gap BUN Creatinine Est GFR ( Amer) Est GFR (Non-Af Amer) Random Glucose Hemoglobin A1c 5.5 Calcium Phosphorus Magnesium Total Bilirubin AST ALT Alkaline Phosphatase Lactate Dehydrogenase Total Creatine Kinase Troponin I Total Protein Albumin Globulin Albumin/Globulin Ratio Triglycerides Cholesterol LDL Cholesterol Direct HDL Cholesterol Procalcitonin TSH 3rd Generation 0.45 L Review of Systems - Review of Systems All systems: reviewed and no additional remarkable complaints except (as per HPI ) - EENT Eyes: absent: Change in Vision - Cardiovascular Cardiovascular: As Per HPI - Respiratory Respiratory: As Per HPI - Gastrointestinal Gastrointestinal: As Per HPI - Genitourinary Genitourinary: As Per HPI. absent: Flank Pain - Musculoskeletal Musculoskeletal: absent: Numbness, Tingling - Integumentary Integumentary: UNREMARKABLE - Neurological Neurological: UNREMARKABLE Critical Care Progress Note - Nutrition Nutrition: Nutrition Category Date Time Status Liquid Diet [DIET] Diets 01/07/17 Breakfast Ordered Assessment/Plan - Assessment and Plan (Free Text) Assessment: 81F with PMH of CAD s/p stents, HTN, afib on warfarin, nephrolithiasis with L Ureteral stent who presented to the ICU for code sepsis. Patient has a RLL pneumonia and questionable new onset CHF, possible UTI neuro: patient is alert, awake, and orientedx3, no complaints CNII-XII intact, gross neuromuscular function intact Continue to monitor Cardio: Asymptomatic Regular rate, occasional PVC's, no murmurs continue to monitor Currently on amlodipine, metoprolol 50 BID, atorvastatin, ASA, and lasix 40 PO daily Cardiology following--follow up recs Pulm: much improved SaO2 93-96% on 3.5L NC Wheezes and rhonchi on exam, improved since yesterday--started duonebs pro-BNP yesterday: >3000 CXR: Vascular congestion with minimal RLL infiltrate and atelectasis Patient on doxycycline IV day 1 and vancomycin IV day 1 Pulmonology and ID following Continue to monitor respiratory status GI: no complaints, tolerating CLD Abdominal exam benign Continue to monitor Advance diet as tolerated--monitor for aspiration : UA: blood, large leukocyte esterase, 20-25 WBC, 15-20RBC Urince culture pending UOP adequate Continuous I&O's Continue to monitor Endo: glucose WNL Continue to monitor with daily BMP;'s Nephro K 3.3 this AM. Supplemented Continue to monitor and supplement as needed for electrolyte balance ID: afebrile overnight, VSS blood cultures, urine cultures, and sputum cultures pending ID following--antibiotic therapy per them PPx: Pepcid, SCD's Dispo: Patient is hemodynamically stable overnight on BiPAP and currently on NC O2 and can be transferred to telemetry Patient examined and discussed with Dr. Henrietta Zavala, PGY1 <Baldev Shrestha - Last Filed: 01/08/17 17:23> CCU Objective - Vital Signs / Intake & Output Vital Signs (Last 4 hours): Vital Signs Pulse Resp BP Pulse Ox 01/08/17 16:30 93 H 41 H 91 L 01/08/17 16:20 85 45 H 91 L 01/08/17 16:10 91 H 26 H 90 L 01/08/17 16:01 83 25 H 142/84 82 L 01/08/17 16:00 84 29 H 81 L 01/08/17 15:50 85 21 86 L 01/08/17 15:49 93 H 28 H 94/49 L 82 L 01/08/17 15:40 82 23 86 L 01/08/17 15:30 90 21 85 L 01/08/17 15:22 91 H 23 01/08/17 15:21 84 27 H 01/08/17 15:20 100 H 56 H 01/08/17 15:19 104 H 28 H 01/08/17 15:18 86 31 H 01/08/17 15:17 97 H 21 01/08/17 15:10 94 H 25 H 90 L 01/08/17 15:00 78 25 H 92 L 01/08/17 14:50 76 18 91 L 01/08/17 14:40 77 26 H 93 L 01/08/17 14:30 74 25 H 93 L 01/08/17 14:20 78 18 93 L 01/08/17 14:13 82 27 H 143/74 93 L 01/08/17 14:10 78 26 H 93 L 01/08/17 14:00 73 16 93 L 01/08/17 13:50 72 20 92 L 01/08/17 13:40 74 18 92 L 01/08/17 13:30 72 17 92 L Intake and Output (Last 8hrs): Intake & Output 01/08/17 01/08/17 01/08/17 06:59 14:59 22:59 Intake Total 800 Output Total 1200 Balance -400 Intake: IV 550 Right Wrist 550 Oral 250 Output: Urine 1200 Urethral ([place]) 1200 Other: Voiding Method Indwelling Catheter - Medications Active Medications: Active Medications Generic Name Dose Route Start Last Admin Trade Name Freq PRN Reason Stop Dose Admin Amlodipine Besylate 10 mg 01/06/17 15:00 01/08/17 09:10 Norvasc PO 10 mg DAILY JAMES Administration Aspirin 81 mg 01/06/17 14:45 01/08/17 09:09 Aspirin Chewable PO 81 mg DAILY JAMES Administration Atorvastatin Calcium 20 mg 01/06/17 22:00 01/07/17 21:18 Lipitor PO 20 mg HS JAMES Administration Budesonide 0.5 mg 01/07/17 08:00 01/08/17 07:40 Pulmicort Respules IH 0.5 mg [id number] JAMES Administration Famotidine 40 mg 01/07/17 22:00 01/07/17 21:18 Pepcid PO 40 mg HS JAMES Administration Furosemide 40 mg 01/09/17 10:00 Lasix IV DAILY JAMES Gabapentin 300 mg 01/06/17 18:00 01/08/17 14:06 Neurontin PO 300 mg TID JAMES Administration Protocol Doxycycline Hyclate 100 mg/ 100 mls @ 100 mls/hr 01/06/17 22:00 01/08/17 09: 06 Sodium Chloride IVPB 100 mls/hr Q12 JAMES Administration Protocol Meropenem 1g/NS 100mL IVPB 1 gm in 100 mls @ 100 mls/hr 01/06/17 22:00 14:06 Meropenem 1g/Ns 100ml Ivpb IVPB 01/13/17 22:01 100 mls/hr Q8 JAMES Administration Protocol Vancomycin HCl 1 gm in 250 mls @ 167 mls/hr 01/06/17 22:00 01/08/17 09:11 Vancomycin 1gm IVPB 167 mls/hr Q12 JAMES Administration Protocol Levalbuterol HCl 0.63 mg 01/07/17 08:00 01/08/17 14:04 Xopenex IH 0.63 mg [id number] JAMES Administration Levalbuterol HCl 0.63 mg 01/07/17 07:06 Xopenex IH Q2 PRN Shortness of Breath Metoprolol Tartrate 50 mg 01/06/17 18:00 01/08/17 09:09 Lopressor PO 50 mg BID JAMES Administration Oxycodone/Acetaminophen 1 tab 01/06/17 14:41 Percocet 5/325 Mg Tab PO 01/09/17 18:01 Q6 PRN Pain, moderate (4-7) - Patient Studies Lab Studies: Microbiology Studies 01/06/17 15:15 Urine Culture - Final Urine,Clean Catch Yeast Species 01/06/17 18:37 MRSA Culture (Admit) - Final Naris MRSA NOT DETECTED Lab Studies 01/08/17 01/08/17 01/08/17 Range/Units 16:15 06:15 06:15 WBC (4.5-11.0) 10^3/ul RBC (3.5-6.1) 10^6/uL Hgb (12.0-16.0) gm/dL Hct (36.0-48.0) % MCV (80.0-105.0) fL MCH (25.0-35.0) pg MCHC (31.0-37.0) g/dl RDW (11.5-14.5) % Plt Count (120.0-450.0) 10^3/uL MPV (7.0-11.0) fl Gran % (50.0-68.0) % Lymph % (Auto) (22.0-35.0) % [place] % (Auto) (1.0-6.0) % Eos % (Auto) (1.5-5.0) % Baso % (Auto) (0.0-3.0) % Gran # (1.4-6.5) Lymph # (1.2-3.4) [place] # (0.1-0.6) Eos # (0.0-0.7) Baso # (0.0-2.0) K/mm3 PT 48.9 H* (9.9-11.8) Seconds INR 4.53 H* (0.93-1.08) pCO2 (35-45) mm/Hg pO2 (80-100) mm/Hg HCO3 (21-28) mmol/L ABG pH (7.35-7.45) ABG Total CO2 (22-28) mmol.L ABG O2 Saturation (95-98) % ABG O2 Content (15-23) ML/dl ABG Base Excess (-2.0-3.0) mmol/L ABG Hemoglobin (11.7-17.4) g/dL ABG Carboxyhemoglobin (0.5-1.5) % POC ABG HHb (Measured) (0-5) % ABG Methemoglobin (0.0-3.0) % ABG O2 Capacity (16-24) mL/dl Hgb O2 Saturation (95.0-98.0) % FiO2 % Sodium 138 139 (132-148) mmol/L Potassium 4.3 3.5 L (3.6-5.0) mmol/L Chloride 95 L 100 (98-107) mmol/L Carbon Dioxide 36 H 33 (21-33) mmol/L Anion Gap 11 10 (10-20) BUN 14 13 (7-21) mg/dL Creatinine 0.6 0.5 (0.5-1.4) mg/dL Est GFR ( Amer) > 60 > 60 Est GFR (Non-Af Amer) > 60 > 60 Random Glucose 98 85 (70-110) mg/dL Calcium 9.7 9.4 (8.4-10.5) mg/dL Magnesium 1.9 (1.7-2.2) mg/dL Total Bilirubin 1.3 1.0 (0.2-1.3) mg/dL AST 30 29 (15-39) U/L ALT 28 29 (7-56) U/L Alkaline Phosphatase 127 114 (38-133) U/L Total Protein 7.9 7.0 (5.8-8.3) g/dL Albumin 4.0 3.5 (3.0-4.8) g/dL Globulin 3.9 3.5 gm/dL Albumin/Globulin Ratio 1.0 L 1.0 L (1.1-1.8) 01/08/17 01/08/17 Range/Units 06:15 06:00 WBC 9.6 D (4.5-11.0) 10^3/ul RBC 4.06 (3.5-6.1) 10^6/uL Hgb 12.0 (12.0-16.0) gm/dL Hct 36.5 (36.0-48.0) % MCV 89.9 (80.0-105.0) fL MCH 29.6 (25.0-35.0) pg MCHC 32.9 (31.0-37.0) g/dl RDW 15.7 H (11.5-14.5) % Plt Count 154 (120.0-450.0) 10^3/uL MPV 10.1 (7.0-11.0) fl Gran % 69.9 H (50.0-68.0) % Lymph % (Auto) 18.4 L (22.0-35.0) % [place] % (Auto) 11.4 H (1.0-6.0) % Eos % (Auto) 0.1 L (1.5-5.0) % Baso % (Auto) 0.2 (0.0-3.0) % Gran # 6.68 H (1.4-6.5) Lymph # 1.8 (1.2-3.4) [place] # 1.1 H (0.1-0.6) Eos # 0.0 (0.0-0.7) Baso # 0.02 (0.0-2.0) K/mm3 PT (9.9-11.8) Seconds INR (0.93-1.08) pCO2 42 (35-45) mm/Hg pO2 66.0 L (80-100) mm/Hg HCO3 32.8 H (21-28) mmol/L ABG pH 7.50 H (7.35-7.45) ABG Total CO2 34.1 H (22-28) mmol.L ABG O2 Saturation 96.5 (95-98) % ABG O2 Content 17.3 (15-23) ML/dl ABG Base Excess 8.7 H (-2.0-3.0) mmol/L ABG Hemoglobin 13.0 (11.7-17.4) g/dL ABG Carboxyhemoglobin 1.5 (0.5-1.5) % POC ABG HHb (Measured) 3.4 (0-5) % ABG Methemoglobin 0.4 (0.0-3.0) % ABG O2 Capacity 17.9 (16-24) mL/dl Hgb O2 Saturation 94.7 L (95.0-98.0) % FiO2 32.0 % Sodium (132-148) mmol/L Potassium (3.6-5.0) mmol/L Chloride (98-107) mmol/L Carbon Dioxide (21-33) mmol/L Anion Gap (10-20) BUN (7-21) mg/dL Creatinine (0.5-1.4) mg/dL Est GFR ( Amer) Est GFR (Non-Af Amer) Random Glucose (70-110) mg/dL Calcium (8.4-10.5) mg/dL Magnesium (1.7-2.2) mg/dL Total Bilirubin (0.2-1.3) mg/dL AST (15-39) U/L ALT (7-56) U/L Alkaline Phosphatase (38-133) U/L Total Protein (5.8-8.3) g/dL Albumin (3.0-4.8) g/dL Globulin gm/dL Albumin/Globulin Ratio (1.1-1.8) Laboratory Results - last 24 hr 01/08/17 01/08/17 01/08/17 06:00 06:15 06:15 WBC 9.6 D RBC 4.06 Hgb 12.0 Hct 36.5 MCV 89.9 MCH 29.6 MCHC 32.9 RDW 15.7 H Plt Count 154 MPV 10.1 Gran % 69.9 H Lymph % (Auto) 18.4 L [place] % (Auto) 11.4 H Eos % (Auto) 0.1 L Baso % (Auto) 0.2 Gran # 6.68 H Lymph # 1.8 [place] # 1.1 H Eos # 0.0 Baso # 0.02 PT INR pCO2 42 pO2 66.0 L HCO3 32.8 H ABG pH 7.50 H ABG Total CO2 34.1 H ABG O2 Saturation 96.5 ABG O2 Content 17.3 ABG Base Excess 8.7 H ABG Hemoglobin 13.0 ABG Carboxyhemoglobin 1.5 POC ABG HHb (Measured) 3.4 ABG Methemoglobin 0.4 ABG O2 Capacity 17.9 Hgb O2 Saturation 94.7 L FiO2 32.0 Sodium 139 Potassium 3.5 L Chloride 100 Carbon Dioxide 33 Anion Gap 10 BUN 13 Creatinine 0.5 Est GFR ( Amer) > 60 Est GFR (Non-Af Amer) > 60 Random Glucose 85 Calcium 9.4 Magnesium Total Bilirubin 1.0 AST 29 ALT 29 Alkaline Phosphatase 114 Total Protein 7.0 Albumin 3.5 Globulin 3.5 Albumin/Globulin Ratio 1.0 L 01/08/17 01/08/17 06:15 16:15 WBC RBC Hgb Hct MCV MCH MCHC RDW Plt Count MPV Gran % Lymph % (Auto) [place] % (Auto) Eos % (Auto) Baso % (Auto) Gran # Lymph # [place] # Eos # Baso # PT 48.9 H* INR 4.53 H* pCO2 pO2 HCO3 ABG pH ABG Total CO2 ABG O2 Saturation ABG O2 Content ABG Base Excess ABG Hemoglobin ABG Carboxyhemoglobin POC ABG HHb (Measured) ABG Methemoglobin ABG O2 Capacity Hgb O2 Saturation FiO2 Sodium 138 Potassium 4.3 Chloride 95 L Carbon Dioxide 36 H Anion Gap 11 BUN 14 Creatinine 0.6 Est GFR ( Amer) > 60 Est GFR (Non-Af Amer) > 60 Random Glucose 98 Calcium 9.7 Magnesium 1.9 Total Bilirubin 1.3 AST 30 ALT 28 Alkaline Phosphatase 127 Total Protein 7.9 Albumin 4.0 Globulin 3.9 Albumin/Globulin Ratio 1.0 L Critical Care Progress Note - Nutrition Nutrition: Nutrition Category Date Time Status Consistent Carbohydrate [DIET] Diets 01/08/17 Breakfast Ordered Addendum Addendum: 01/08/17 17:22 patient was seen, examined and discussed at bedside with Dr. Zavala. her note reflects my exam, assessment and plan, except as below. Meds/Labs/ONE reviewed. 81 with CAP, CHF, flash pulm edema, now resolved. abx, septic work up, diuresis , Ok to downgrade to tele ccm time 40 min
--- NOTE | 2017-01-07 18:40 | CP.PCM.CON ---
History of Present Illness - History of Present Illness History of Present Illness: 81 year old female with PMH of herpes zoster on the left side of the neck and left ear, CAD S/P PCI, HTN, dyslipidemia, history of E. coli bacteremia associated with UTI and left nephrolithiasis S/P left ureteral stent placement, history of acute transient ischemic attack with transient left sided weakness was brought in from the rehab center because of chest congestion, SOB and cough for the past 3 days. The patient also has anorexia, has some nausea but no vomiting. She denies fever or chills, no abdominal pain, no chest pain, no headache or dizziness, no diarrhea, no dysuria, no dysphagia, no sore throat, no rhinorrhea. In the ED, CXR was done which showed right lower lobe infiltrate and she had a fever of 101.1 F. Infectious Diseases consult is requested to further evaluate and manage. Review of Systems - Review of Systems All systems: reviewed and no additional remarkable complaints except (as per HPI ) Past Patient History - Infectious Disease Hx of Infectious Diseases: None - Past Social History Smoking Status: Never Smoked - CARDIAC Hx Congestive Heart Failure: Yes - PULMONARY Hx Chronic Obstructive Pulmonary Disease (COPD): No - NEUROLOGICAL HX Cerebrovascular Accident: No - HEENT Hx HEENT Problems: No - RENAL Hx Chronic Kidney Disease: No - ENDOCRINE/METABOLIC Hx Diabetes Mellitus Type 1: No Hx Diabetes Mellitus Type 2: No Hx Hypothyroidism: No - HEMATOLOGICAL/ONCOLOGICAL Hx Cancer: No - INTEGUMENTARY Hx Dermatological Problems: Yes Other/Comment: Shingles on left side of neck on 04/14/16. 5-1-17 LEFT HIP WITH IRREGULARLY SHAPED STAGE 2 PRESURE ULCER .MEASURES 1.5 X 2.5 CM. RED AREA. MILD SEROUS DRAIANGE. BILATERAL LE DARK TO LIGHT BROWNISH SKIN DISCOLORATION.EDEMA + 1.PITTING - MUSCULOSKELETAL/RHEUMATOLOGICAL Hx Musculoskeletal Disorders: Yes (LUMBAR RADICULOPATHY,SCIATICA) Hx Unsteady Gait: Yes (CANE WALKER) - GASTROINTESTINAL Hx Gastroesophageal Reflux: No - GENITOURINARY/GYNECOLOGICAL Hx Genitourinary Disorders: No - PSYCHIATRIC Hx Psychophysiologic Disorder: No Hx Emotional Abuse: No Hx Physical Abuse: No Hx Substance Use: No - SURGICAL HISTORY Hx Coronary Stent: Yes (X2) Other/Comment: CARDIAC STENT X 2 - ANESTHESIA Hx Anesthesia Reactions: No Hx Malignant Hyperthermia: No Meds Allergies/Adverse Reactions: Allergies Allergy/AdvReac Type Severity Reaction Status Date / Time No Known Allergies Allergy Verified 01/06/17 11:34 - Medications Medications: Current Medications Amlodipine Besylate (Norvasc) 10 mg PO DAILY [facility] Last Admin: 01/06/17 15:07 Dose: 10 mg Aspirin (Aspirin Chewable) 81 mg PO DAILY [facility] Last Admin: 01/06/17 15:06 Dose: 81 mg Atorvastatin Calcium (Lipitor) 20 mg PO HS [facility] Furosemide (Lasix) 40 mg PO DAILY [facility] Gabapentin (Neurontin) 300 mg PO TID [facility] PRN Reason: Protocol Last Admin: 01/06/17 19:41 Dose: 300 mg Doxycycline Hyclate 100 mg/ (Sodium Chloride) 100 mls @ 100 mls/hr IVPB Q12 [facility] PRN Reason: Protocol Metoprolol Tartrate (Lopressor) 50 mg PO BID [facility] Last Admin: 01/06/17 19:42 Dose: 50 mg Oxycodone/Acetaminophen (Percocet 5/325 Mg Tab) 1 tab PO Q6 PRN PRN Reason: Pain, moderate (4-7) Stop: 01/09/17 18:01 Physical Exam - Constitutional Appears: Non-toxic, No Acute Distress - Head Exam Head Exam: NORMAL INSPECTION - ENT Exam ENT Exam: Mucous Membranes Moist - Neck Exam Neck exam: Negative for: Lymphadenopathy, Meningismus - Respiratory Exam Respiratory Exam: Decreased Breath Sounds - Cardiovascular Exam Cardiovascular Exam: +S1, +S2 - GI/Abdominal Exam GI & Abdominal Exam: Soft. absent: Tenderness Results - Vital Signs Recent Vital Signs: Last Vital Signs Temp 99.7 F H 01/06/17 18:47 Pulse 75 01/06/17 20:20 Resp 30 H 01/06/17 19:50 BP 145/60 01/06/17 19:00 Pulse Ox 97 01/06/17 19:50 - Labs Result Diagrams: 01/07/17 06:30 01/07/17 06:30 Labs: Laboratory Results - last 24 hr 01/06/17 01/06/17 15:10 15:15 pO2 214 H VBG pH 7.40 VBG pCO2 49.0 VBG HCO3 30.4 H VBG Total CO2 31.9 H VBG O2 Sat (Calc) 99.5 H VBG Base Excess 4.5 H VBG Potassium 3.6 Sodium 139.0 Chloride 105.0 Glucose 136 H Lactate 2.8 H FiO2 21.0 Venous Blood Potassium 3.6 Urine Color Yellow Urine Appearance Clear Urine pH 6.5 Ur Specific [place] 1.010 Urine Protein Negative Urine Glucose (UA) Negative Urine Ketones Negative Urine Blood Large H Urine Nitrate Negative Urine Bilirubin Negative Urine Urobilinogen 0.2 Ur Leukocyte Esterase Large H Urine RBC 15 - 20 Urine WBC 20 - 25 Ur Epithelial Cells 4 - 5 Amorphous Sediment Few Urine Bacteria Mod Assessment & Plan - Assessment and Plan (Free Text) Plan: Assessment sepsis due to right lower lobe healthcare-associated pneumonia with possible gram positive cocci and/or gram negative bacilli history of E. coli bacteremia associated with UTI and left nephrolithiasis S/P left ureteral stent placement history of acute transient ischemic attack with transient left sided weakness history of urinary tract infection with E. coli history of herpes zoster on the left side of the neck and left ear and post- herpetic neuralgia CAD S/P PCI HTN dyslipidemia Plan started patient on Vancomycin and Merrem pending blood cx, sputum cx, PCT; reviewed CXR Will monitor clinically
--- NOTE | 2017-01-08 00:29 | HP ---
HISTORY OF PRESENT ILLNESS: The patient is an 81-year-old female. Presented to the ED with increase d shortness of breath with cough and purulent sputum. She was thought to be septic, transferred to [facility]. She has a chest x-ray, showed right lower infiltrate. She was given IV fluids, treated with BiP AP. Shortness of breath has improved. She received IV antibiotic. She also has history of coronary artery disease and atrial fibrillation. INR was supratherapeutic at 4. Currently is sitting upright in bed. Shortness of breath has improved since admission. Denies any c hest pain. No urinary complaints. No fever. PAST MEDICAL HISTORY: Hypertension, coronary artery disease, hypercholesterolemia, atrial fibrillati on, diabetes mellitus type 2. FAMILY HISTORY: Noncontributory. No positive history mother, father. PAST SURGICAL HISTORY: Cardiac stent. ALLERGIES: No known drug allergies. PERSONAL HISTORY: Never smoked. No history of alcohol abuse. HOME MEDICATIONS: Norvasc 10 mg daily, aspirin 81 mg daily, Lipitor 20 mg daily, Pepcid 40 mg daily, Neurontin 300 mg t.i.d., Lopressor 50 mg b.i.d., Percocet p.r.n. for pain. REVIEW OF SYSTEMS: As per HPI. Rest of 12-point review of systems reviewed and negative. PHYSICAL EXAMINATION: GENERAL: Comfortable in bed, in no acute distress. She is off BiPAP now. VITAL SIGNS: Blood pressure 120/60, temperature T-max 101.1, respiratory rate 18 per minute, pulse o x is 96% on oxygen by nasal cannula. HEENT: Pallor positive, otherwise normal. NECK: No lymphadenopathy. CHEST: Bilateral rhonchi present, bilateral crepitations present. CARDIOVASCULAR: Tachycardia present. S1, S2 irregularly irregular. ABDOMEN: Obese, soft, nontender, no rebound tenderness. EXTREMITIES: No edema. No petechia. No rash. NEUROLOGIC: Alert, oriented x 3, no focal sensorimotor deficit. LYMPHADENOPATHY: None. SKIN: No petechia, no rash. LABORATORY DATA: White count 5000, hemoglobin 11.9, hematocrit 35.6, MCV 89, platelet count 151. So dium 140, potassium 3.3, BUN 10, creatinine 0.5, calcium 9.5, alkaline phosphatase 132, total protein 7.4. Triglyceride 82, total bilirubin 1.1. INR 4.5. ASSESSMENT: 1. Sepsis. 2. Right lower lobe pneumonia. 3. Atrial fibrillation. 4. Mild anemia. 5. Diabetes mellitus type 2. 6. Coronary artery disease. PLAN: 1. She is getting BiPAP. IV antibiotic; meropenem and vancomycin. Blood culture and urine culture sent. ID consultation, Dr. Omer, requested. 2. Cardiovascular: Atrial fibrillation, heart rate controlled. Continue beta dami 50 mg p.o. b. i.d. Continue Norvasc 10 mg daily. 3. Pulmonary: Right lower lobe pneumonia. Antibiotics; meropenem, vancomycin, and doxycycline. 4. Mild anemia: Hemoglobin and hematocrit stable. No leukocytosis. Will continue to monitor blood count. 5. GI: Continue Pepcid 40 mg daily, 6. Renal: BUN, creatinine normal. Continue Lasix. 7. Peripheral neuropathy: She is on Neurontin 300 mg p.o. t.i.d. Continue same. 8. Pain: Percocet p.r.n. for pain. Effie Payton MD cc: [id number] TT: 01/08/2017 00:28:45 dn
[2017-01-08] MEDS: Levalbuterol 0.63 MG/3 ML Inhal Soln UD IH SCH ×4 (02:30→20:45)
[2017-01-08] MEDS: Meropenem 1g/NS 100mL IVPB 1 GM/100 ML PIGGYBACK IVPB SCH ×3 (05:48→22:42)
[2017-01-08 06:30] LABS: ARTERIAL BLOOD GAS HCO3 32.8 mmol/L (21-28); ARTERIAL BLOOD GAS O2 CAPACITY 17.9 mL/dl (16-24); ARTERIAL BLOOD GAS O2 CONTENT 17.3 ML/dl (15-23); ARTERIAL BLOOD HGB O2 SAT 94.7 % (95.0-98.0); CARBOXYHEMOGLOBIN 1.5 % (0.5-1.5); HHB 3.4 % (0-5); METHEMOGLOBIN 0.4 % (0.0-3.0)
[2017-01-08 06:32] LABS: ADD MANUAL DIFF? NO
[2017-01-08 06:47] LABS: BASO # 0.02 K/mm3 (0.0-2.0); BASO % 0.2 % (0.0-3.0); EOS % 0.1 % (1.5-5.0); GRAN # 6.68 (1.4-6.5); GRAN % 69.9 % (50.0-68.0); HEMATOCRIT 36.5 % (36.0-48.0); LYMPH # 1.8 (1.2-3.4); LYMPH % 18.4 % (22.0-35.0); MEAN CELL VOLUME 89.9 fL (80.0-105.0); MEAN CORPUSCULAR HEMOGLOBIN 29.6 pg (25.0-35.0); MEAN CORPUSCULAR HGB CONC 32.9 g/dl (31.0-37.0); MEAN PLATELET VOLUME 10.1 fl (7.0-11.0); MONO # 1.1 (0.1-0.6); MONO % 11.4 % (1.0-6.0); PLATELET COUNT 154 10^3/uL (120.0-450.0); RED CELL DISTRIBUTION WIDTH 15.7 % (11.5-14.5); WHITE BLOOD COUNT 9.6 10^3/ul (4.5-11.0)
[2017-01-08 07:05] LABS: INR 4.53 (0.93-1.08)
[2017-01-08] MEDS: Budesonide 0.5 mg/2 ml Inhal Susp UD IH SCH ×2 (07:40→20:45)
[2017-01-08 07:45] LABS: ALKALINE PHOSPHATASE 114 U/L (38-133); ALT/SGPT 29 U/L (7-56); AST/SGOT 29 U/L (15-39); BLOOD UREA NITROGEN 13 mg/dL (7-21); CALCIUM 9.4 mg/dL (8.4-10.5); CARBON DIOXIDE 33 mmol/L (21-33); CHLORIDE 100 mmol/L (98-107); GFR AFRICAN-AMERICAN > 60; GLUCOSE,RANDOM 85 mg/dL (70-110); POTASSIUM 3.5 mmol/L (3.6-5.0); SODIUM 139 mmol/L (132-148)
[2017-01-08] MEDS: Vancomycin 1gm in NS 250ml 1 GM/250 ML BAG IVPB SCH ×2 (09:11→22:43)
[2017-01-08] MEDS ORDERED: Potassium Chloride 20 mEq ER Tab PO ONE ×3 (09:44→23:24)
--- NOTE | 2017-01-08 10:59 | RAD ---
HISTORY: follow up COMPARISON: 01/07/2017 FINDINGS: LUNGS: No active pulmonary disease. PLEURA: Small right pleural effusion CARDIOVASCULAR: Moderate cardiomegaly. Mild vascular congestion OSSEOUS STRUCTURES: No significant abnormalities. VISUALIZED UPPER ABDOMEN: Normal. OTHER FINDINGS: None. IMPRESSION: Vascular congestion with small right effusion unchanged
--- NOTE | 2017-01-08 11:14 | PN ---
DATE: 01/08/2017 REASON FOR CONSULTATION AND FOLLOWUP: Cardiac evaluation, congestive heart failure, coronary artery disease, possible pneumonia, chronic atrial fibrillation. BRIEF CLINICAL HISTORY: This is an 81-year-old female with a past medical history significant for co ronary artery disease, status post a stent in the past, chronic atrial fibrillation, anticoagulation, history of kidney stone, status post stone. Came to Emergency Room after being referred from rehab facility because of very weak, lethargic, short of breath, chills and hypotension, so code seps is was called because of elevated lactate level. Fluid was given, resuscitated with fluid, developed pulmonary edema and Lasix was given. The patient was admitted to ICU. Now, patient is stable, stil l wheezing, hemodynamically stable. PHYSICAL EXAMINATION: VITAL SIGNS: Temperature afebrile, heart rate 84, blood pressure 143/68. HEENT: PERRLA. Extraocular muscles intact. NECK: Supple. No carotid bruits. No thyromegaly. CHEST: Clear to auscultation. HEART: S1, S2 regular. ABDOMEN: Soft. EXTREMITIES: Clubbing, cyanosis negative. BLOOD WORKUP: WBC , hemoglobin 12. , hematocrit 36.5, platelet count 154. Chemistry shows sodium 130, potassium 3.5, chloride 100, carbon dioxide 33, anion gap of 10, BUN 13, creatinine 0.5, total protein 7, albumin 3.5. IMPRESSION: Pneumonia. Chest x-ray still shows mild congestion. The patient had recent echo 017 that shows dilated right ventricle, right atrium, mildly dilated left atrium, normal left ventric le size, systolic function and normal systolic function, moderate to severe tricuspid regurgitation, moderate to severe pulmonary hypertension, mild mitral regurgitation, right ventricular systolic pres sure 64, calculated ejection fraction reported as normal. Sepsis, community-acquired pneumonia, dianna estive heart failure, history of percutaneous transluminal coronary angioplasty of left anterior desc ending on 04/20/2014. At that time, circumflex was essentially free of significant disease, only mid left anterior descending was diseased. Coagulopathy, elevated INR on admission. Yesterday also, INR was 4.5. Today is 4.53. RECOMMENDATION: Continue to hold anticoagulation. Continue antibiotic started. Will supplement pot assium. Will give Lasix, but will change to p.o. Will change IV, hold the p.o. and give IV. Supplement potassium and give 40 of Lasix. We will repeat PT/INR in the morning. Continue broad spe ctrum antibiotic. We will follow with you. Thank you, Dr. Lazo, for providing us the opportunity in taking care of the patient. Maurizio Lopes MD cc: [id number] TT: 01/08/2017 10:17:58 Confirmation # [id number] Dictation # [id number] en 01/08/2017 10:13:44
--- NOTE | 2017-01-08 16:04 | PN ---
DATE: 01/08/2017 HISTORY OF PRESENT ILLNESS: The patient was seen and examined in intensive care unit. She is curren tly off BiPAP, still complains of shortness of breath. Her oxygen saturation is 95 on nasal cannula. PHYSICAL EXAMINATION: VITAL SIGNS: Temperature is 98, pulse 74, respirations 18, blood pressure is 160/80, oxygen saturati on on nasal cannula is 94%. HEAD, EARS, NOSE AND THROAT: Normocephalic, atraumatic. NECK: No jugular vein distention. CARDIOVASCULAR: A 2/6 systolic ejection murmur, regular. PULMONARY: Crackles at both bases. No wheezing. GASTROINTESTINAL: Soft, nontender. No organomegaly. EXTREMITIES: Positive for mild edema. SKIN: No acute skin rash. NEUROLOGIC: Limited at the present time. LABORATORY DATA: Her ABGs yesterday were pH 740, pCO2 of 49 and pO2 of 214. Her pH is normal, which indicates lack of chronic carbon dioxide retention. Her BNP is elevated. ASSESSMENT AND PLAN: 1. Right lower lobe pneumonia. 2. Sepsis syndrome. 3. Congestive heart failure. 4. Fluid overload. 5. Respiratory failure. PLAN: I have discussed the plan extensively with Dr. Shrestha in the intensive care unit at the [facility]. The patient required BiPAP application and became hypoxic after administrations of fluid in the fluid resuscitation due to sepsis. Currently, she is improving with diuretic therapy; however, she still shows signs of infection and possible pneumonia. She is being treated with multiple antibiotic s. We will continue with nebulizer treatment and application of BiPAP, which is being conducted by Chloe Shrestha. Her condition has improved slightly. Michael Akhtar MD cc: [id number] TT: 01/08/2017 16:04:14 Confirmation # [id number] Dictation # [id number] ln
[2017-01-08 16:36] LABS: ALKALINE PHOSPHATASE 127 U/L (38-133); ALT/SGPT 28 U/L (7-56); AST/SGOT 30 U/L (15-39); BILIRUBIN,TOTAL 1.3 mg/dL (0.2-1.3); BLOOD UREA NITROGEN 14 mg/dL (7-21); CALCIUM 9.7 mg/dL (8.4-10.5); CARBON DIOXIDE 36 mmol/L (21-33); CHLORIDE 95 mmol/L (98-107); GFR AFRICAN-AMERICAN > 60; GLUCOSE,RANDOM 98 mg/dL (70-110); MAGNESIUM 1.9 mg/dL (1.7-2.2); POTASSIUM 4.3 mmol/L (3.6-5.0); SODIUM 138 mmol/L (132-148); TOTAL PROTEIN 7.9 g/dL (5.8-8.3)
--- NOTE | 2017-01-08 17:57 | PN ---
DATE: 01/08/2017 SUBJECTIVE: The patient has no complaints of any chest pain or shortness of breath, no headaches or dizziness. PHYSICAL EXAMINATION: VITAL SIGNS: Temperature 99, pulse of 93, blood pressure 142/84, respirations 12. GENERAL: The patient comfortable, in no acute distress. HEENT: Anicteric sclerae. Moist mucosa. NECK: No JVD or adenopathy. CARDIAC: S1/S2. No murmurs. No rubs. Regular. RESPIRATORY: Clear to auscultation bilaterally. No wheezes, rales, or rhonchi. Good air entry. ABDOMEN: Bowel sounds are positive, soft, nontender, and nondistended. EXTREMITIES: No edema. Has 1+ pulses. LABORATORY DATA: White count of 9.6, hemoglobin is 12, creatinine 0.6. ASSESSMENT: 1. Healthcare-associated pneumonia. 2. Coronary artery disease. 3. Dyslipidemia. 4. Hypertension. 5. Atrial fibrillation on anticoagulation. 6. Diabetes type 2. PLAN: The patient is currently comfortable. She is going to be on aspirin. The patient is on doxyc ycline for antibiotics. She is to continue Lipitor for dyslipidemia. She is on gabapentin for neuro kehinde, is on meropenem for antibiotics. The patient was given Pulmicort. She is on a liquid diet. I will advance her diet to a carbohydrate consistent diet. Moreno Lazo MD cc: [id number] TT: 01/08/2017 17:56:14 Confirmation # [id number] Dictation # [id number] jn
--- NOTE | 2017-01-08 22:01 | CP.PCM.PN ---
Subjective - Date & Time of Evaluation Date of Evaluation: 01/08/17 Time of Evaluation: 08:40 - Subjective Subjective: Comfortable, not in distress, no fevers overnight, breathing better. Objective - Vital Signs/Intake and Output Vital Signs (last 24 hours): Temp Pulse Resp BP Pulse Ox 99 F 76 19 140/64 94 L 01/08/17 00:00 01/08/17 18:50 01/08/17 18:50 01/08/17 18:00 01/08/17 18:50 Intake and Output: 01/08/17 01/09/17 18:59 06:59 Intake Total 1130 Output Total 5000 Balance -3870 - Medications Medications: Current Medications Amlodipine Besylate (Norvasc) 10 mg PO DAILY [facility] Last Admin: 01/08/17 09:10 Dose: 10 mg Aspirin (Aspirin Chewable) 81 mg PO DAILY [facility] Last Admin: 01/08/17 09:09 Dose: 81 mg Atorvastatin Calcium (Lipitor) 20 mg PO HS [facility] Last Admin: 01/07/17 21:18 Dose: 20 mg Budesonide (Pulmicort Respules) 0.5 mg IH [id number] [facility] Last Admin: 01/08/17 20:45 Dose: 0.5 mg Famotidine (Pepcid) 40 mg PO HS [facility] Last Admin: 01/07/17 21:18 Dose: 40 mg Furosemide (Lasix) 40 mg IV DAILY J[facility] Gabapentin (Neurontin) 300 mg PO TID JAMES PRN Reason: Protocol Last Admin: 01/08/17 17:59 Dose: 300 mg Doxycycline Hyclate 100 mg/ (Sodium Chloride) 100 mls @ 100 mls/hr IVPB Q12 JAMES PRN Reason: Protocol Last Admin: 01/08/17 09:06 Dose: 100 mls/hr Meropenem 1g/NS 100mL IVPB (Meropenem 1g/Ns 100ml Ivpb) 1 gm in 100 mls @ 100 mls/hr IVPB Q8 JAMES PRN Reason: Protocol Stop: 01/13/17 22:01 Last Admin: 01/08/17 14:06 Dose: 100 mls/hr Vancomycin HCl (Vancomycin 1gm) 1 gm in 250 mls @ 167 mls/hr IVPB Q12 JAMES PRN Reason: Protocol Last Admin: 01/08/17 09:11 Dose: 167 mls/hr Levalbuterol HCl (Xopenex) 0.63 mg IH [id number] [facility] Last Admin: 01/08/17 20:45 Dose: 0.63 mg Levalbuterol HCl (Xopenex) 0.63 mg IH Q2 PRN PRN Reason: Shortness of Breath Metoprolol Tartrate (Lopressor) 50 mg PO BID [facility] Last Admin: 01/08/17 17:59 Dose: 50 mg Oxycodone/Acetaminophen (Percocet 5/325 Mg Tab) 1 tab PO Q6 PRN PRN Reason: Pain, moderate (4-7) Stop: 01/09/17 18:01 - Labs Labs: 01/08/17 06:15 01/08/17 16:15 PT 48.9 Seconds (9.9-11.8) H* 01/08/17 06:15 INR 4.53 (0.93-1.08) H* 01/08/17 06:15 APTT 40.8 Seconds (23.7-30.8) H 01/06/17 12:00 - Constitutional Appears: Non-toxic, No Acute Distress - Head Exam Head Exam: NORMAL INSPECTION - ENT Exam ENT Exam: Mucous Membranes Moist - Neck Exam Neck Exam: absent: Lymphadenopathy, Meningismus - Respiratory Exam Respiratory Exam: Decreased Breath Sounds - Cardiovascular Exam Cardiovascular Exam: +S1, +S2 - GI/Abdominal Exam GI & Abdominal Exam: Soft. absent: Tenderness Assessment and Plan - Assessment and Plan (Free Text) Plan: Assessment sepsis due to right lower lobe healthcare-associated pneumonia with possible gram positive cocci and/or gram negative bacilli history of E. coli bacteremia associated with UTI and left nephrolithiasis S/P left ureteral stent placement history of acute transient ischemic attack with transient left sided weakness history of urinary tract infection with E. coli history of herpes zoster on the left side of the neck and left ear and post- herpetic neuralgia CAD S/P PCI HTN dyslipidemia Plan continue Vancomycin and Merrem day 2; cultures are negative so far - will target 4-7 days of therapy Will monitor clinically
[2017-01-08 22:09] LABS: VENOUS BLOOD GAS BASE EXCESS 14.5 mmol/L (0.0-2.0); VENOUS BLOOD PH 7.53 (7.32-7.43)
[2017-01-08 22:14] LABS: MAGNESIUM 1.9 mg/dL (1.7-2.2)
[2017-01-08 23:13] LABS: BLOOD UREA NITROGEN 14 mg/dL (7-21); CALCIUM 9.8 mg/dL (8.4-10.5); CARBON DIOXIDE 34 mmol/L (21-33); CHLORIDE 93 mmol/L (98-107); GFR AFRICAN-AMERICAN > 60; GLUCOSE,RANDOM 104 mg/dL (70-110); POTASSIUM 3.5 mmol/L (3.6-5.0); SODIUM 137 mmol/L (132-148)
[2017-01-09 00:04] VITALS: RESP 20
[2017-01-09 01:30] LABS: VENOUS BLOOD PH 7.49 (7.32-7.43)
[2017-01-09] MEDS: Levalbuterol 0.63 MG/3 ML Inhal Soln UD IH SCH ×4 (01:49→20:32)
[2017-01-09] MEDS: Meropenem 1g/NS 100mL IVPB 1 GM/100 ML PIGGYBACK IVPB SCH ×3 (05:09→21:00)
[2017-01-09 06:55] LABS: ADD MANUAL DIFF? NO
[2017-01-09 07:06] LABS: BASO # 0.03 K/mm3 (0.0-2.0); BASO % 0.3 % (0.0-3.0); EOS % 0.4 % (1.5-5.0); GRAN # 7.07 (1.4-6.5); GRAN % 68.5 % (50.0-68.0); LYMPH % 19.7 % (22.0-35.0); MEAN CELL VOLUME 89.1 fL (80.0-105.0); MEAN CORPUSCULAR HEMOGLOBIN 29.8 pg (25.0-35.0); MEAN CORPUSCULAR HGB CONC 33.5 g/dl (31.0-37.0); MONO # 1.1 (0.1-0.6); MONO % 11.1 % (1.0-6.0); PLATELET COUNT 172 10^3/uL (120.0-450.0); RED CELL DISTRIBUTION WIDTH 15.4 % (11.5-14.5); WHITE BLOOD COUNT 10.3 10^3/ul (4.5-11.0)
[2017-01-09 07:18] LABS: INR 3.01 (0.93-1.08)
[2017-01-09 07:19] LABS: ALKALINE PHOSPHATASE 119 U/L (38-133); ALT/SGPT 33 U/L (7-56); AST/SGOT 28 U/L (15-39); BILIRUBIN,TOTAL 1.3 mg/dL (0.2-1.3); BLOOD UREA NITROGEN 13 mg/dL (7-21); CALCIUM 9.6 mg/dL (8.4-10.5); CARBON DIOXIDE 29 mmol/L (21-33); CHLORIDE 100 mmol/L (98-107); GFR AFRICAN-AMERICAN > 60; GLUCOSE,RANDOM 86 mg/dL (70-110); MAGNESIUM 1.9 mg/dL (1.7-2.2); PHOSPHOROUS 2.6 mg/dL (2.5-4.5); POTASSIUM 3.6 mmol/L (3.6-5.0); SODIUM 136 mmol/L (132-148); TOTAL PROTEIN 7.4 g/dL (5.8-8.3)
--- NOTE | 2017-01-09 08:21 | PN ---
DATE: 01/09/2017 SUBJECTIVE: The patient appears very comfortable this morning. She is not short of breath at rest. PHYSICAL EXAMINATION: VITAL SIGNS: Temperature is 98.3, pulse 69, respirations 18/20, blood pressure 146/72. Oxygen saturation on nasal cannula is 94%. HEENT: Normocephalic, atraumatic. No JVD. CARDIOVASCULAR: Systolic ejection murmur at the lower left sternal border. Questionable S3 gallop. LUNGS: Less crackles at the bases. Less rhonchi. No wheezing. EXTREMITIES: Positive for mild edema. No cyanosis. No clubbing. Calves are nontender to palpation. GASTROINTESTINAL: Abdomen is soft, nontender, nondistended. Bowel sounds are positive. SKIN: No acute rash. NEUROLOGIC: Limited at the present time. IMPRESSION: 1. Probable right lower lobe pneumonia. 2. Sepsis syndrome. 3. Congestive heart failure. 4. Status post respiratory failure. 5. Coronary artery disease. 6. Cardiac arrhythmias. PLAN: The patient appears very comfortable this morning. She is not short of breath at rest. Oxygen saturation on nasal cannula is now 94%. I did discuss the case with the night nurse at length. The night nurse stated that the patient did have a good night, but did not wear her BiPAP. On physical exam, there is certainly less bronchospasm noted. I will continue with the current nebulizer treatments and inhaled steroids for now. The patient remains on antibiotic therapy -- as per infectious disease. The temperatures have resolved. There is no leukocytosis. I would continue with the treatment for congestive heart failure as per cardiology. Input by Dr. Lopes is noted. Clinical status of the patient is certainly improved -- compared to the initial presentation. However, the overall status/prognosis of this elderly patient does remain guarded. I will discuss the above with the attending physician. Francisco J Bowden MD cc: [phone] TT: 01/09/2017 08:21:16 Confirmation # [id number] Dictation # [id number] en MTDD
[2017-01-09] MEDS: Budesonide 0.5 mg/2 ml Inhal Susp UD IH SCH ×2 (08:25→20:32)
--- NOTE | 2017-01-09 08:32 | PN ---
DATE: 01/09/2017 SUBJECTIVE: The patient has no complaints of any chest pain, no shortness of breath. She does have a mild cough that she says the nebulizer helps. PHYSICAL EXAMINATION: VITAL SIGNS: Temperature is 98.3, pulse of 69, blood pressure is 146/72, respirations 20. GENERAL: The patient comfortable, in no acute distress. HEENT: Anicteric sclerae. Moist mucosa. NECK: No JVD or adenopathy. CARDIAC: S1/S2. No murmurs. No rubs. Regular. RESPIRATORY: Clear to auscultation bilaterally. No wheezes, rales, or rhonchi. Good air entry. ABDOMEN: Bowel sounds are positive, soft, nontender, and nondistended. EXTREMITIES: No edema. Has 1+ pulses. LABORATORIES: Have been reviewed. ASSESSMENT: 1. Healthcare-associated pneumonia. 2. Coronary artery disease. 3. Dyslipidemia. 4. Hypertension. 5. Atrial fibrillation, on anticoagulation. 6. Diabetes type 2. PLAN: The patient is improving. She had a chest x-ray done that shows vascular congestion with a sm all right pleural effusion that is unchanged. She is on IV antibiotics. Blood cultures and urine cu ltures were done. She has yeast in her urine. The patient is on doxycycline for antibiotics. She i s going to continue with aspirin. She is on amlodipine for hypertension. She is on Neurontin for ne uropathy. She is on Lipitor for dyslipidemia. She is on vancomycin for antibiotics. She is going t o be getting physical therapy. Moreno Lazo MD cc: [id number] TT: 01/09/2017 08:31:41 Confirmation # [id number] Dictation # [id number] en
--- NOTE | 2017-01-09 10:53 | RAD ---
HISTORY: F/U pneumonia and compare COMPARISON: 01/08/2017 TECHNIQUE: Chest PA and lateral FINDINGS: LUNGS: No active pulmonary disease. PLEURA: There is a small pleural effusion on the right which extends along the major fissure. CARDIOVASCULAR: Normal. OSSEOUS STRUCTURES: No significant abnormalities. VISUALIZED UPPER ABDOMEN: Normal. OTHER FINDINGS: None. IMPRESSION: Small pleural effusion at the right lung base layering along the major fissure
[2017-01-09] MEDS: Vancomycin 1gm in NS 250ml 1 GM/250 ML BAG IVPB SCH ×2 (12:43→20:59)
[2017-01-09] MEDS ORDERED: Potassium Chloride 20 mEq ER Tab PO ONE ×2 (16:06→18:30)
--- NOTE | 2017-01-09 17:38 | CP.PCM.PN ---
Subjective - Date & Time of Evaluation Date of Evaluation: 01/09/17 Time of Evaluation: 09:20 - Subjective Subjective: Feeling better, breathing better, afebrile overnight, not in distress. Objective - Vital Signs/Intake and Output Vital Signs (last 24 hours): Temp Pulse Resp BP Pulse Ox 98.2 F 62 20 118/84 94 L 01/09/17 12:00 01/09/17 14:00 01/09/17 12:00 01/09/17 12:00 01/09/17 05:43 Intake and Output: 01/09/17 01/09/17 06:59 18:59 Intake Total 1970 Output Total 5200 Balance -3230 - Medications Medications: Current Medications Amlodipine Besylate (Norvasc) 10 mg PO DAILY [facility] Last Admin: 01/09/17 09:39 Dose: 10 mg Aspirin (Aspirin Chewable) 81 mg PO DAILY [facility] Last Admin: 01/09/17 09:40 Dose: 81 mg Atorvastatin Calcium (Lipitor) 20 mg PO HS [facility] Last Admin: 01/08/17 22:43 Dose: 20 mg Budesonide (Pulmicort Respules) 0.5 mg IH [id number] [facility] Last Admin: 01/09/17 08:25 Dose: 0.5 mg Famotidine (Pepcid) 40 mg PO HS [facility] Last Admin: 01/08/17 22:44 Dose: 40 mg Furosemide (Lasix) 40 mg IV DAILY [facility] Last Admin: 01/09/17 09:40 Dose: 40 mg Gabapentin (Neurontin) 300 mg PO TID [facility] PRN Reason: Protocol Last Admin: 01/09/17 14:12 Dose: 300 mg Doxycycline Hyclate 100 mg/ (Sodium Chloride) 100 mls @ 100 mls/hr IVPB Q12 [facility] PRN Reason: Protocol Last Admin: 01/09/17 11:17 Dose: 100 mls/hr Meropenem 1g/NS 100mL IVPB (Meropenem 1g/Ns 100ml Ivpb) 1 gm in 100 mls @ 100 mls/hr IVPB Q8 [facility] PRN Reason: Protocol Stop: 01/13/17 22:01 Last Admin: 01/09/17 14:10 Dose: 100 mls/hr Vancomycin HCl (Vancomycin 1gm) 1 gm in 250 mls @ 167 mls/hr IVPB Q12 JAMES PRN Reason: Protocol Last Admin: 01/09/17 12:43 Dose: 167 mls/hr Levalbuterol HCl (Xopenex) 0.63 mg IH [id number] [facility] Last Admin: 01/09/17 13:55 Dose: Not Given Levalbuterol HCl (Xopenex) 0.63 mg IH Q2 PRN PRN Reason: Shortness of Breath Magnesium Oxide (Mag-Ox) 400 mg PO BID [facility] Stop: 01/10/17 23:59 Metoprolol Tartrate (Lopressor) 50 mg PO BID [facility] Last Admin: 01/09/17 09:39 Dose: 50 mg Oxycodone/Acetaminophen (Percocet 5/325 Mg Tab) 1 tab PO Q6 PRN PRN Reason: Pain, moderate (4-7) Stop: 01/09/17 18:01 Last Admin: 01/09/17 02:23 Dose: 1 tab Warfarin Sodium (Coumadin) 2 mg PO 1800 [facility] PRN Reason: Protocol - Labs Labs: 01/09/17 06:30 01/09/17 06:30 PT 32.5 Seconds (9.9-11.8) H* 01/09/17 06:30 INR 3.01 (0.93-1.08) H 01/09/17 06:30 APTT 40.8 Seconds (23.7-30.8) H 01/06/17 12:00 - Constitutional Appears: Non-toxic, No Acute Distress - Head Exam Head Exam: NORMAL INSPECTION - ENT Exam ENT Exam: Mucous Membranes Moist - Neck Exam Neck Exam: absent: Lymphadenopathy, Meningismus - Respiratory Exam Respiratory Exam: Decreased Breath Sounds - Cardiovascular Exam Cardiovascular Exam: +S1, +S2 - GI/Abdominal Exam GI & Abdominal Exam: Soft. absent: Tenderness Assessment and Plan - Assessment and Plan (Free Text) Plan: Assessment sepsis due to right lower lobe healthcare-associated pneumonia with possible gram positive cocci and/or gram negative bacilli history of E. coli bacteremia associated with UTI and left nephrolithiasis S/P left ureteral stent placement history of acute transient ischemic attack with transient left sided weakness history of urinary tract infection with E. coli history of herpes zoster on the left side of the neck and left ear and post- herpetic neuralgia CAD S/P PCI HTN dyslipidemia Plan continue Vancomycin and Merrem day 3; cultures are negative - will target 4-7 days of therapy Will monitor clinically
[2017-01-09] MEDS: Magnesium Oxide 400 mg Tab UD PO SCH (18:28)
--- NOTE | 2017-01-09 18:37 | PN ---
DATE: 01/09/2017 CONSULTATION AND FOLLOWUP: Cardiac evaluation, congestive heart failure, coronary artery disease, po ssible pneumonia, chronic atrial fibrillation. BRIEF CLINICAL HISTORY: An 81-year-old female with past medical history significant for coronary art leah disease, status post a stent in the past, chronic atrial fibrillation, on anticoagulation, histor y of kidney stone came to the Emergency Room being referred from the rehab facility, weak, very anthony rgic, short of breath ____ hypertension, status post code sepsis was called because of elevated lacta te level. Fluid was given to resuscitate. The patient went into pulmonary edema, Lasix was given. The patient admitted to ICU, now the patient is out of the ICU. Repeat chest x-ray was done; [facility], patient significantly improved. PHYSICAL EXAMINATION: VITAL SIGNS: Temperature afebrile, heart rate 60, blood pressure 118/84. HEENT: PERRLA. Extraocular muscles intact. NECK: Supple. No carotid bruits. No thyromegaly. CHEST: Clear to auscultation. HEART: S1, S2 regular. ABDOMEN: Soft. EXTREMITIES: Clubbing and cyanosis negative. LABORATORY DATA: Blood workup as follows: WBC 10, hemoglobin 13.2, hematocrit 40.0, platelet count 172. Chemistry shows sodium 136, potassium 3.6, chloride 100, carbon dioxide 29, anion gap of 11, B UN 13, creatinine 0.6. Chest x-ray shows small pleural effusion on the right lung base, lying along the major fissure. IMPRESSION: Pneumonia, moderate to severe tricuspid regurgitation, right heart failure, moderate to severe pulmonary hypertension, ____ pressure 64, calculated ejection fraction within normal limit, hi story of coronary artery disease, status post stent 04/20/2014, history of chronic atrial fibrillation was intact. Supratherapeutic INR, off anticoagulation, diabetes, hypertension, INR is 3.01. RECOMMENDATION: We start Coumadin 2 mg from tomorrow. We will follow up PT/INR. Continue gentle di uretics, continue atorvastatin, continue aspirin, continue amlodipine. We will follow with you. Yolanda st x-ray shows significant improvement. Thank you, Dr. Lazo, for providing the opportunity in taking care of this patient. Maurizio Lopes MD cc: [id number] TT: 01/09/2017 18:36:34 Confirmation # [id number] Dictation # [id number] jn
[2017-01-10] MEDS: Levalbuterol 0.63 MG/3 ML Inhal Soln UD IH SCH ×3 (01:47→13:55)
[2017-01-10 05:14] VITALS: O2SAT 95
[2017-01-10] MEDS: Meropenem 1g/NS 100mL IVPB 1 GM/100 ML PIGGYBACK IVPB SCH ×2 (05:30→13:30)
[2017-01-10 07:38] LABS: ADD MANUAL DIFF? NO
[2017-01-10 07:47] LABS: BASO # 0.03 K/mm3 (0.0-2.0); BASO % 0.3 % (0.0-3.0); EOS # 0.1 (0.0-0.7); EOS % 1.5 % (1.5-5.0); GRAN # 5.96 (1.4-6.5); GRAN % 65.2 % (50.0-68.0); HEMATOCRIT 38.6 % (36.0-48.0); LYMPH # 2.1 (1.2-3.4); LYMPH % 23.1 % (22.0-35.0); MEAN CELL VOLUME 88.5 fL (80.0-105.0); MEAN CORPUSCULAR HEMOGLOBIN 29.8 pg (25.0-35.0); MEAN CORPUSCULAR HGB CONC 33.7 g/dl (31.0-37.0); MEAN PLATELET VOLUME 10.5 fl (7.0-11.0); MONO # 0.9 (0.1-0.6); MONO % 9.9 % (1.0-6.0); PLATELET COUNT 181 10^3/uL (120.0-450.0); RED CELL DISTRIBUTION WIDTH 15.2 % (11.5-14.5); WHITE BLOOD COUNT 9.2 10^3/ul (4.5-11.0)
[2017-01-10 07:56] LABS: INR 1.98 (0.93-1.08)
[2017-01-10 08:06] LABS: ALKALINE PHOSPHATASE 107 U/L (38-133); ALT/SGPT 35 U/L (7-56); BILIRUBIN,TOTAL 1.1 mg/dL (0.2-1.3); BLOOD UREA NITROGEN 17 mg/dL (7-21); CALCIUM 9.3 mg/dL (8.4-10.5); CARBON DIOXIDE 26 mmol/L (21-33); CHLORIDE 104 mmol/L (95-110); GFR AFRICAN-AMERICAN > 60; GLUCOSE,RANDOM 91 mg/dL (70-110); PHOSPHOROUS 2.8 mg/dL (2.5-4.5); POTASSIUM 3.8 mmol/L (3.6-5.0); SODIUM 137 mmol/L (132-148); TOTAL PROTEIN 6.6 g/dL (5.8-8.3)
[2017-01-10 08:34] LABS: AST/SGOT 30 U/L (15-39)
--- NOTE | 2017-01-10 09:32 | PN ---
DATE: 01/10/2017 SUBJECTIVE: The patient was seen and examined at bedside. She is receiving doxycycline as well as Lasix. She is on inhalation treatments with Xopenex and budesonide. PHYSICAL EXAMINATION: VITAL SIGNS: As follows: Her temperature is 98.7, pulse 68, respirations 20, pulse oximetry is 95 on nasal cannula, blood pressure is 140/74. HEAD, EARS, NOSE AND THROAT: Within normal limits. NECK: Supple with no jugular vein distensions. CARDIOVASCULAR: S1, S2, no S3, regular. PULMONARY: Few basilar rhonchi. No wheezing. GASTROINTESTINAL: Soft, nontender with no organomegaly. EXTREMITIES: No pedal edema. SKIN: No acute skin rash. NEUROLOGIC: Limited at present time. LABORATORY DATA: I reviewed today's blood work: WBC is 9.2, hemoglobin of 13.0. Chemistries are completely normal. ASSESSMENT: 1. Resolving right lower lobe pneumonia, clinically. 2. Sepsis syndrome. 3. Congestive heart failure. 4. Status post respiratory failure. 5. Coronary artery disease. PLAN: The patient appears comfortable this morning. She refuses to use BiPAP at night. Her oxygen saturation on nasal cannula today is excellent at 95-96. BiPAP may no longer be required. Continue aerosol therapy with inhalant steroids and bronchodilators. We will follow closely. Michael Akhtar MD cc: [id number] TT: 01/10/2017 09:31:41 Confirmation # [id number] Dictation # [id number] jn MTDD
[2017-01-10] MEDS: Budesonide 0.5 mg/2 ml Inhal Susp UD IH SCH (09:39)
[2017-01-10] MEDS: Magnesium Oxide 400 mg Tab UD PO SCH (09:48)
--- NOTE | 2017-01-10 10:01 | PN ---
DATE: 01/10/2017 The patient is in bed, seen in 275, bed 2. The patient is in bed, seen earlier today. No fevers and no chills. PHYSICAL EXAMINATION: VITAL SIGNS: Temperature is 98, blood pressure is 140/70, respiratory rate of 20, heart rate of 61. HEENT: Unremarkable. NECK: Supple. LUNGS: Have decreased breath sounds. HEART: Normal S1, S2. ABDOMEN: Soft. LABORATORY DATA: Reveals a white count of 9.2, hemoglobin of 13, platelets of 181. The chemistries reveal the BUN of 17, creatinine of 0.6. Urinalysis is noted. Microbiology reveals the blood cultur es no growth 3 days. Urine culture has yeast. The naris culture for MRSA is negative. Review of the orders reveals the patient to be on IV doxycycline, IV meropenem and IV vancomycin. The patient had a chest x-ray yesterday: No active pulmonary disease. Last procalcitonin on 01/07 wa s 0.12. ASSESSMENT AND PLAN: An 81-year-old female with sepsis with a right lower lobe healthcare-associated pneumonia, possible gram-positive cocci, possible gram-negative nghia, although the procalcitonin was normal, has a history of Escherichia coli bacteremia, ____ urinary tract infection, left nephrolithia sis and a left ureteral stent placement, history of acute, transient ischemic attack, on vancomycin a nd meropenem day #4 and doxycycline. We will discontinue the vancomycin and change the doxycycline t o p.o., most likely will discontinue the antibiotics in next 24 - 48 hours. Josh Omer MD cc: [phone] TT: 01/10/2017 10:01:06 Confirmation # [id number] Dictation # [id number] tim
--- NOTE | 2017-01-10 13:02 | PN ---
DATE: 01/10/2017 REASON FOR CONSULTATION AND FOLLOWUP: Cardiac evaluation with congestive coronary artery disease and possible pneumonia, chronic atrial fibrillation. BRIEF CLINICAL HISTORY: An 81-year-old female with past medical history significant for coronary art leah disease status post a stent, chronic atrial fibrillation, anticoagulation, history of kidney ston es came to the Emergency Room being transferred from rehab facility weak and lethargic, shortness of breath, hypertension, status post sepsis code called because lactate was elevated, fluid was given. The patient went into pulmonary edema, diuretics given. The patient is upgraded to ICU. Later on, t he patient improved. The patient is on the floor, now in the process of being transferred to TCU. D enies any chest pain, shortness of breath, any palpitation. Telemetry shows occasional PVCs but hemo dynamically stable. PHYSICAL EXAMINATION: VITAL SIGNS: Temperature afebrile, heart rate 80, blood pressure 144/72. HEENT: PERRLA. Extraocular muscles intact. NECK: Supple. No carotid bruits. No thyromegaly. CHEST: Clear to auscultation. HEART: S1, S2 regular. ABDOMEN: Soft. EXTREMITIES: Clubbing and cyanosis negative. LABORATORY DATA: Blood workup as follows: ____ , hemoglobin 13, hematocrit 38.6, platelet count 181 . Chemistry shows sodium 137, potassium 3.8, chloride 104, carbon dioxide 26, anion gap of 11, BUN 1 7, creatinine 0.6. IMPRESSION: Atrial fibrillation, chronic on anticoagulation, supratherapeutic INR on admission. INR was 1.98 today, yesterday was 3. Decompensated congestive heart failure, hypotension on admission, IV fluid ____ decompensated congestive heart failure, pneumonia, [id number] tricuspid regurgi tation and right heart failure, moderate to severe pulmonary hypertension, systolic pressure of 64. The ejection fraction within normal limit, coronary artery disease status post percutaneous translumi nal coronary angioplasty in 04/20/2014, history of chronic atrial fibrillation. INR 1.28. RECOMMENDATION: We will start Cardizem 2 mg tomorrow. Follow up PT/INR. Continue diuretics, contin ue atorvastatin, continue aspirin, continue amlodipine. We will follow with you. Followup chest x-r ay shows significant improvement. The patient is okay to go to TCU. We will discontinue telemetry. Thank you, Dr. Lazo, for providing the opportunity in taking care of this patient. Continue gent le diuretics p.o. Continue beta dami. We will follow with you. Maurizio Lopes MD cc: [phone] TT: 01/10/2017 13:01:42 Confirmation # [id number] Dictation # [id number] jn
--- NOTE | 2017-01-10 13:04 | DS ---
DISCHARGE DIAGNOSES: 1. Urosepsis. 2. Atrial fibrillation. 3. Coronary artery disease. 4. Diabetes mellitus. 5. Urinary tract infection. 6. Anemia. HOSPITAL COURSE: The patient was admitted with community-acquired pneumonia, urosepsis. She was in ICU. She was treated with IV antibiotics. She received BiPAP, bronchodilators. Evaluated by cardio logy. Anticoagulation was with Coumadin. She came with supratherapeutic INR. Coumadin dose was adj usted. She is being discharged in stable condition to transitional care unit for deconditioning. PHYSICAL EXAMINATION: GENERAL: On discharge, comfortable in bed, in no acute distress. VITAL SIGNS: Temperature 98.7, heart rate is 90 per minute, blood pressure 130/80, pulse ox is 98% r oom air. HEENT: Normal except pallor. NECK: No lymphadenopathy. CHEST: Air entry present, equal bilateral. No added sounds. CARDIOVASCULAR: S1, S2 normal. Irregularly irregular. ABDOMEN: Obese, soft, nontender, no rebound tenderness. EXTREMITIES: No edema. No petechia, no rash. NEUROLOGIC: Alert, oriented x 3, no focal sensorimotor deficit. LYMPHADENOPATHY: None. SKIN: No petechia, no rash. NEUROLOGIC: Alert and oriented x 3. LABORATORY DATA: On discharge, white count 9.2, hemoglobin 13, hematocrit 38.5, platelet count 181. Sodium 137, potassium 3.8, creatinine 0.6, calcium 9.3, magnesium 2. CONDITION ON DISCHARGE: Stable. DIET: Regular. DISCHARGE MEDICATIONS: Norvasc 10 mg daily, aspirin 81 mg daily, Lipitor 20 mg daily, Pulmicort inha lation q. 12 hours, doxycycline 100 mg q. 12 hours, Pepcid 40 mg daily, Lasix 40 mg p.o. daily, Neuro ntin 300 mg p.o. t.i.d., Xopenex 0.3 mg inhalation q. 2 hours p.r.n., mag oxide 400 mg b.i.d., merope nem 1 gram q. 8 hours, metoprolol 50 b.i.d., Coumadin 2 mg daily. DISPOSITION: Discharged to transitional care unit. Time spent in preparing discharge, coordinating care, 55 minutes. Discussed with the staff nurse. D iscussed with the patient. Effie Payton MD cc: [phone] TT: 01/10/2017 13:03:51 dusty
[2017-01-10 13:16] VITALS: BP 126/79; PULSE 63; TEMP 98.2
== END 2017-01-10 15:30 | DRG 871 ==
LOC: ED 11:16 → ERH 12:33 → CCU 18:39 → 2RSO 01-08 21:41
PROVIDERS: ADMIT Internal Medicine Nephrology; ATTEND Internal Medicine Nephrology
DX: A41.9 Sepsis, unspecified organism (principal); J18.9 Pneumonia, unspecified organism; J96.00 Acute respiratory failure, unspecified whether with hypoxia or hypercapnia; I50.23 Acute on chronic systolic (congestive) heart failure; I47.2 Ventricular tachycardia; L89.222 Pressure ulcer of left hip, stage 2; D68.9 Coagulation defect, unspecified; I27.2 Other secondary pulmonary hypertension; I11.0 Hypertensive heart disease with heart failure; I50.30 Unspecified diastolic (congestive) heart failure; N39.0 Urinary tract infection, site not specified; G45.9 Transient cerebral ischemic attack, unspecified; G62.9 Polyneuropathy, unspecified; I08.1 Rheumatic disorders of both mitral and tricuspid valves; I48.2 Chronic atrial fibrillation; E11.9 Type 2 diabetes mellitus without complications; D64.9 Anemia, unspecified; I25.10 Atherosclerotic heart disease of native coronary artery without angina pectoris; E78.00 Pure hypercholesterolemia, unspecified; E78.5 Hyperlipidemia, unspecified; N20.0 Calculus of kidney; I49.3 Ventricular premature depolarization; R79.1 Abnormal coagulation profile; Y95 Nosocomial condition; Z79.01 Long term (current) use of anticoagulants; Z79.82 Long term (current) use of aspirin; Z79.899 Other long term (current) drug therapy; Z87.440 Personal history of urinary (tract) infections; Z87.442 Personal history of urinary calculi; Z95.5 Presence of coronary angioplasty implant and graft; R40.2412 Glasgow coma scale score 13-15, at arrival to emergency department; M54.16 Radiculopathy, lumbar region; M54.30 Sciatica, unspecified side; R26.81 Unsteadiness on feet

== ENCOUNTER 2017-01-10 15:36 | Inpatient (IN) | payer OTHER, MEDICARE ==
[2017-01-10 15:59] VITALS: BMI 32.5
[2017-01-10] MEDS: Magnesium Oxide 400 mg Tab UD PO SCH (17:57)
[2017-01-10] MEDS: Levalbuterol 0.63 MG/3 ML Inhal Soln UD IH SCH (21:06)
[2017-01-10] MEDS: Budesonide 0.5 mg/2 ml Inhal Susp UD IH SCH (21:06)
[2017-01-10] MEDS: Meropenem 1g/NS 100mL IVPB 1 GM/100 ML PIGGYBACK IVPB SCH (22:28)
[2017-01-11] MEDS: Levalbuterol 0.63 MG/3 ML Inhal Soln UD IH SCH ×4 (03:37→22:35)
[2017-01-11] MEDS: Meropenem 1g/NS 100mL IVPB 1 GM/100 ML PIGGYBACK IVPB SCH (05:44)
[2017-01-11] MEDS: Budesonide 0.5 mg/2 ml Inhal Susp UD IH SCH ×2 (07:20→22:35)
[2017-01-11] MEDS: Magnesium Oxide 400 mg Tab UD PO SCH ×2 (10:02→17:21)
[2017-01-11 16:28] LABS: INR 1.61 (0.93-1.08)
[2017-01-12] MEDS: Levalbuterol 0.63 MG/3 ML Inhal Soln UD IH SCH ×4 (03:10→20:38)
[2017-01-12] MEDS: Budesonide 0.5 mg/2 ml Inhal Susp UD IH SCH ×2 (07:47→20:37)
[2017-01-12] MEDS: Magnesium Oxide 400 mg Tab UD PO SCH ×2 (10:10→18:53)
--- NOTE | 2017-01-12 23:00 | CP.PCM.PN ---
Subjective - Date & Time of Evaluation Date of Evaluation: 01/12/17 Time of Evaluation: 22:59 - Subjective Subjective: Patient was seen at bedside because she complained of low back pain. States that she has chronic back pain problem. States that she takes tramodol at home which helps. she had received tylelnol earlier which did not help her. This 82 year old white woman was admitted with increased sob, purulent sputum , cough. Has PMH of HTN,atrial fibrillation, HLD,CAD, DM II. Objective - Vital Signs/Intake and Output Vital Signs (last 24 hours): Temp Pulse Resp BP Pulse Ox 99.5 F 50 L 18 120/69 95 01/12/17 22:32 01/12/17 22:32 01/12/17 22:32 01/12/17 22:32 01/12/17 22:32 - Medications Medications: Current Medications Amlodipine Besylate (Norvasc) 10 mg PO DAILY JAMES PRN Reason: Protocol Last Admin: 01/12/17 10:11 Dose: 10 mg Aspirin (Aspirin Chewable) 81 mg PO DAILY JAMES PRN Reason: Protocol Last Admin: 01/12/17 10:09 Dose: 81 mg Atorvastatin Calcium (Lipitor) 20 mg PO DIN JAMES PRN Reason: Protocol Last Admin: 01/12/17 18:52 Dose: 20 mg Budesonide (Pulmicort Respules) 0.5 mg IH [id number] JAMES PRN Reason: Protocol Last Admin: 01/12/17 20:37 Dose: 0.5 mg Doxycycline Hyclate (Doryx) 100 mg PO Q12 JAMES PRN Reason: Protocol Last Admin: 01/12/17 21:49 Dose: 100 mg Famotidine (Pepcid) 40 mg PO HS JAMES PRN Reason: Protocol Last Admin: 01/12/17 21:50 Dose: 40 mg Furosemide (Lasix) 40 mg PO DAILY JAMES PRN Reason: Protocol Last Admin: 01/12/17 10:09 Dose: 40 mg Gabapentin (Neurontin) 300 mg PO TID JAMES PRN Reason: Protocol Last Admin: 01/12/17 18:53 Dose: 300 mg Levalbuterol HCl (Xopenex) 0.63 mg IH Q2H PRN; Protocol PRN Reason: Shortness of Breath Levalbuterol HCl (Xopenex) 0.63 mg IH [id number] JAMES PRN Reason: Protocol Last Admin: 01/12/17 20:38 Dose: 0.63 mg Magnesium Oxide (Mag-Ox) 400 mg PO BID JAMES PRN Reason: Protocol Last Admin: 01/12/17 18:53 Dose: 400 mg Metoprolol Tartrate (Lopressor) 50 mg PO BID JAMES PRN Reason: Protocol Last Admin: 01/12/17 18:52 Dose: 50 mg Warfarin Sodium (Coumadin) 2 mg PO 1800 AJMES PRN Reason: Protocol Last Admin: 01/12/17 18:52 Dose: 2 mg - Labs Labs: PT 17.4 Seconds (9.9-11.8) H 01/11/17 16:00 INR 1.61 (0.93-1.08) H 01/11/17 16:00 - Constitutional Appears: Well, No Acute Distress - Head Exam Head Exam: ATRAUMATIC, NORMAL INSPECTION, NORMOCEPHALIC - Eye Exam Eye Exam: Normal appearance - ENT Exam ENT Exam: Normal External Ear Exam - Neck Exam Neck Exam: Normal Inspection - Respiratory Exam Respiratory Exam: NORMAL BREATHING PATTERN - Cardiovascular Exam Cardiovascular Exam: absent: JVD - GI/Abdominal Exam GI & Abdominal Exam: absent: Distended - Rectal Exam Rectal Exam: Deferred - Extremities Exam Extremities Exam: Normal Inspection - Back Exam Back Exam: NORMAL INSPECTION - Neurological Exam Neurological Exam: Alert, Oriented x3 - Psychiatric Exam Psychiatric exam: Normal Affect, Normal Mood - Skin Skin Exam: Normal Color Assessment and Plan - Assessment and Plan (Free Text) Assessment: Low back pain. Lumbar radiculopathy. DM II. HTN. HLD. Atrial fibrillation. CAD. Plan: Tramodol 50 mg PO X 1. Continue present management.
[2017-01-13] MEDS: Levalbuterol 0.63 MG/3 ML Inhal Soln UD IH SCH ×4 (02:33→19:46)
--- NOTE | 2017-01-13 07:52 | PN ---
DATE: 01/13/2017 SUBJECTIVE: The patient has no complaints of any chest pain or shortness of breath, no headaches or dizziness. PHYSICAL EXAMINATION: VITAL SIGNS: Temperature is 98.2, pulse is 67, blood pressure 122/73, respirations 20. GENERAL: The patient comfortable, in no acute distress. HEENT: Anicteric sclerae. Moist mucosa. NECK: No JVD or adenopathy. CARDIAC: S1/S2. No murmurs. No rubs. Regular. RESPIRATORY: Clear to auscultation bilaterally. No wheezes, rales, or rhonchi. Good air entry. ABDOMEN: Bowel sounds are positive, soft, nontender, and nondistended. EXTREMITIES: No edema. Has 1+ pulses. ASSESSMENT: 1. Healthcare-associated pneumonia, resolved. 2. Coronary artery disease. 3. Dyslipidemia. 4. Hypotension. 5. Atrial fibrillation, on anticoagulation. 6. Diabetes, type 2. PLAN: The patient is currently comfortable. She is on aspirin. She is going to continue with Couma din. We will check her protime. She is getting physical therapy. Going to continue Lipitor for dys lipidemia. She is on doxycycline for antibiotics. She is on Xopenex as needed. She is receiving tr amadol. Moreno Lazo MD cc: [phone] TT: 01/13/2017 07:51:19 Confirmation # [id number] Dictation # [id number] telly
[2017-01-13] MEDS: Budesonide 0.5 mg/2 ml Inhal Susp UD IH SCH ×2 (08:45→19:45)
[2017-01-13 08:57] LABS: INR 1.79 (0.93-1.08)
[2017-01-13] MEDS: Magnesium Oxide 400 mg Tab UD PO SCH ×2 (10:35→17:45)
[2017-01-14] MEDS: Levalbuterol 0.63 MG/3 ML Inhal Soln UD IH PRN (00:08)
[2017-01-14] MEDS: Levalbuterol 0.63 MG/3 ML Inhal Soln UD IH SCH ×4 (02:20→20:08)
[2017-01-14] MEDS: Budesonide 0.5 mg/2 ml Inhal Susp UD IH SCH ×2 (07:17→20:08)
--- NOTE | 2017-01-14 08:20 | PN ---
DATE: 01/14/2017 SUBJECTIVE: The patient appears comfortable at rest. She is not short of breath. PHYSICAL EXAMINATION: VITAL SIGNS: Temperature is 98.5, pulse 54, respirations 18/20, blood pressure 120/61. Oxygen saturation on nasal cannula is 97%. HEENT: Normocephalic, atraumatic. No JVD. CARDIOVASCULAR: Systolic ejection murmur at the lower left sternal border. No S3 gallop. LUNGS: Minimal crackles at the bases. Minimal rhonchi. No wheezing. EXTREMITIES: Less edema. No cyanosis, no clubbing. Calves are nontender to palpation. GASTROINTESTINAL: Abdomen is soft, nontender, nondistended. Bowel sounds are positive. SKIN: No acute rash. NEUROLOGIC: Limited at the present time. IMPRESSION: 1. Status post right lower lobe pneumonia. 2. Mild bronchospasm. 3. Congestive heart failure. 4. Coronary artery disease. 5. Cardiac arrhythmias. PLAN: The patient appears comfortable this morning. She is not short of breath at rest. She states she is feeling much better overall. On physical exam, her bronchospasm is considerably less. In addition, there is no significant alveolar-arterial gradient. Oxygen saturation on nasal cannula is 97%. I will continue with the current nebulizer treatments and inhaled steroids for now. The patient remains on Lasix/afterload reduction. Clinical status of the patient is significantly improved -- compared to the initial presentation. She is now on the transitional unit -- where she will participate with physical therapy. I will discuss the above with the attending physician. Francisco J Bowden MD cc: [phone] TT: 01/14/2017 08:19:38 Confirmation # [id number] Dictation # [id number] en MTDD
[2017-01-14] MEDS: Magnesium Oxide 400 mg Tab UD PO SCH ×2 (09:56→17:38)
[2017-01-15] MEDS: Levalbuterol 0.63 MG/3 ML Inhal Soln UD IH SCH ×2 (01:25→07:20)
[2017-01-15] MEDS: Budesonide 0.5 mg/2 ml Inhal Susp UD IH SCH ×2 (07:20→20:48)
--- NOTE | 2017-01-15 07:25 | PN ---
DATE: 01/15/2017 SUBJECTIVE: The patient appears comfortable this morning. She is not short of breath at rest. PHYSICAL EXAMINATION: VITAL SIGNS: Temperature is 98.0, pulse 56, respirations 18/20, blood pressure 123/78. Oxygen saturation on nasal cannula is 96%. HEENT: Normocephalic, atraumatic. No JVD. CARDIOVASCULAR: Systolic ejection murmur at the lower left sternal border. No S3 gallop. LUNGS: Minimal crackles at the bases. Minimal/less rhonchi. No wheezing. EXTREMITIES: Minimal edema. No cyanosis, no clubbing. Calves are nontender to palpation. GASTROINTESTINAL: Abdomen is soft, nontender, nondistended. Bowel sounds are positive. SKIN: No acute rash. NEUROLOGIC: Limited at the present time. IMPRESSION: 1. Status post right lower lobe pneumonia. 2. Mild bronchospasm. 3. Congestive heart failure. 4. Coronary artery disease. 5. Cardiac arrhythmias. PLAN: The patient appears comfortable this morning. She is not short of breath at rest. She states she is feeling much better overall. On physical exam, her bronchospasm continues to resolve. In addition, the alveolar arterial gradient also continues to resolve. I will continue with the current nebulizer treatments and inhaled steroids for now. The patient remains on antibiotic therapy. There are no temperatures noted. Clinical status of the patient is significantly improved -- compared to her initial presentation. She is advised to increase her activity as tolerated. I will discuss the above with Dr. Lazo. Francisco J Bowden MD cc: [phone] TT: 01/15/2017 07:25:15 Confirmation # [id number] Dictation # [id number] jaylan MELO
[2017-01-15 07:34] LABS: INR 2.28 (0.93-1.08)
--- NOTE | 2017-01-15 08:25 | PN ---
DATE: 01/15/2017 SUBJECTIVE: The patient has no complaints of any chest pain, no shortness of breath, no headaches or dizziness. PHYSICAL EXAMINATION: VITAL SIGNS: Temperature is 98.5, pulse of 63, blood pressure 119/55, respirations 18. GENERAL: The patient comfortable, in no acute distress. HEENT: Anicteric sclerae. Moist mucosa. NECK: No JVD or adenopathy. CARDIAC: S1/S2. No murmurs. No rubs. Regular. RESPIRATORY: Clear to auscultation bilaterally. No wheezes, rales, or rhonchi. Good air entry. ABDOMEN: Bowel sounds are positive, soft, nontender, and nondistended. EXTREMITIES: No edema. Has 1+ pulses. LABS: INR is 2.2. ASSESSMENT: 1. Healthcare-associated pneumonia, resolved. 2. Atrial fibrillation, on Coumadin 3. Dyslipidemia. 4. Coronary artery disease. 5. Diabetes, type 2. PLAN: The patient is currently comfortable. She is going to continue with Lipitor for dyslipidemia. The patient is finished with her antibiotics; I will discontinue. The patient is on aspirin. She is going to continue on metoprolol. The patient is on Neurontin for neuropathy. She is on Norvasc f or hypertension. She remains deconditioned. I did speak to the patient's daughter to update her. T he patient is to be discharged on Thursday. She is going to get visiting nurses and physical therapy a t home. Moreno Lazo MD cc: [phone] TT: 01/15/2017 08:25:18 Confirmation # [id number] Dictation # [id number] mn
[2017-01-15] MEDS: Magnesium Oxide 400 mg Tab UD PO SCH ×2 (09:30→17:14)
[2017-01-15] MEDS: Levalbuterol 0.63 MG/3 ML Inhal Soln UD IH PRN (20:49)
[2017-01-16] MEDS: Budesonide 0.5 mg/2 ml Inhal Susp UD IH SCH ×2 (07:38→20:18)
--- NOTE | 2017-01-16 08:19 | PN ---
DATE: 01/16/2017 SUBJECTIVE: The patient appears comfortable this morning. She is not short of breath at rest. PHYSICAL EXAMINATION: VITAL SIGNS: Temperature is 98.1, pulse 60, respirations 18, blood pressure 137 /66. Oxygen saturation on nasal cannula is 97%. HEENT: Normocephalic, atraumatic. No JVD. CARDIOVASCULAR: Systolic ejection murmur at the lower left sternal border. No S3 gallop. LUNGS: Minimal crackles at the bases. No rhonchi or wheezing this morning. EXTREMITIES: Minimal edema. No cyanosis, no clubbing. Calves are nontender to palpation. GASTROINTESTINAL: Abdomen is soft, nontender, nondistended. Bowel sounds are positive. SKIN: No acute rash. NEUROLOGIC: Limited at the present time. IMPRESSION: 1. Status post right lower lobe pneumonia. 2. Mild bronchospasm. 3. Congestive heart failure. 4. Coronary artery disease. 5. Cardiac arrhythmias. PLAN: The patient appears comfortable this morning. She is not short of breath at rest. The patient does state to feeling much better overall. On physical exam, her bronchospasm continues to resolve. In addition, there is no significant alveolar-arterial gradient. I will continue with the current nebulizer treatments and inhaled steroids for now. Clinical status of the patient is certainly improved overall. I will discuss the above with the attending physician. Francisco J Bowden MD cc: [phone] TT: 01/16/2017 08:18:53 Confirmation # [id number] Dictation # [id number] en MTDD
[2017-01-16] MEDS: Magnesium Oxide 400 mg Tab UD PO SCH ×2 (10:56→17:58)
[2017-01-16] MEDS: Levalbuterol 0.63 MG/3 ML Inhal Soln UD IH SCH ×3 (13:19→20:20)
[2017-01-16 16:13] VITALS: RESP 20
[2017-01-17] MEDS: Levalbuterol 0.63 MG/3 ML Inhal Soln UD IH SCH ×4 (02:25→20:43)
[2017-01-17] MEDS: Budesonide 0.5 mg/2 ml Inhal Susp UD IH SCH ×2 (09:00→20:43)
--- NOTE | 2017-01-17 09:17 | PN ---
DATE: 01/17/2017 SUBJECTIVE: The patient appears comfortable this morning. She is not short of breath at rest. PHYSICAL EXAMINATION: VITAL SIGNS: Temperature is 98.5, pulse 53, respirations 18/20, blood pressure 129/69. Oxygen saturation on room air is 95%. HEENT: Normocephalic, atraumatic. No JVD. CARDIOVASCULAR: Systolic ejection murmur at the lower left sternal border. No S3 gallop. LUNGS: Minimal crackles at the bases. Otherwise, clear. EXTREMITIES: Minimal edema. No cyanosis, no clubbing. Calves are nontender to palpation. GASTROINTESTINAL: Abdomen is soft, nontender, nondistended. Bowel sounds are positive. SKIN: No acute rash. NEUROLOGIC: Limited at the present time. IMPRESSION: 1. Status post right lower lobe pneumonia. 2. Mild bronchospasm. 3. Congestive heart failure. 4. Coronary artery disease. 5. Cardiac arrhythmias. PLAN: The patient appears very comfortable this morning. She is not short of breath at rest. She states she is feeling much, much better overall. On physical exam, her bronchospasm is primarily resolved. In addition, oxygen saturation on room air is now 95%. I will continue with the current nebulizer treatments and inhaled steroids for now. Clinical status of the patient is significantly improved -- compared to the initial presentation. I will discuss the above with the attending physician. Francisco J Bowden MD cc: [phone] TT: 01/17/2017 09:16:51 Confirmation # [id number] Dictation # [id number] MELO
[2017-01-17] MEDS: Magnesium Oxide 400 mg Tab UD PO SCH ×2 (10:30→17:44)
--- NOTE | 2017-01-17 12:59 | PN ---
DATE: 01/17/2017 SUBJECTIVE: The patient is an 82-year-old, seen and examined, lying in bed, seems to be uncomfortabl e, anxious to go home. PHYSICAL EXAMINATION: VITAL SIGNS: She is afebrile, pulse 52, respirations 20, blood pressure 120/71. LUNGS: Bilateral good airflow, no rhonchi or crackle. HEART: S1, S2 audible. ABDOMEN: Soft, nontender, no rebound, no guarding. NEUROLOGIC: She is awake and alert, communicative, moves all extremities. EXTREMITIES: Bilateral legs, no edema. LABORATORY EXAMINATION: There is no new PT/INR available today. We will order for tomorrow. ASSESSMENT: 1. Resolving pneumonia. 2. Chronic atrial fibrillation. 3. Hyperlipidemia. 4. Coronary artery disease. 5. Non-insulin dependent diabetes. 6. Deconditioning and difficulty walking. PLAN: Will continue patient on current medication. I will order for Chem-7 and PT/INR for the chivo lamas and if she remains stable, she will be discharged home in a.m. Keli Arita MD cc: [phone] TT: 01/17/2017 12:58:17 Confirmation # [id number] Dictation # [id number] dusty
[2017-01-18] MEDS: Levalbuterol 0.63 MG/3 ML Inhal Soln UD IH SCH ×2 (01:22→08:25)
[2017-01-18 05:19] LABS: ADD MANUAL DIFF? NO
[2017-01-18 05:25] VITALS: TEMP 98.3; O2SAT 95
[2017-01-18 05:25] LABS: BASO # 0.03 K/mm3 (0.0-2.0); BASO % 0.3 % (0.0-3.0); EOS # 0.1 (0.0-0.7); EOS % 1.2 % (1.5-5.0); GRAN % 73.2 % (50.0-68.0); HEMATOCRIT 35.1 % (36.0-48.0); LYMPH # 1.9 (1.2-3.4); LYMPH % 17.6 % (22.0-35.0); MEAN CORPUSCULAR HEMOGLOBIN 29.8 pg (25.0-35.0); MEAN CORPUSCULAR HGB CONC 33.9 g/dl (31.0-37.0); MEAN PLATELET VOLUME 10.5 fl (7.0-11.0); MONO # 0.8 (0.1-0.6); MONO % 7.7 % (1.0-6.0); PLATELET COUNT 240 10^3/uL (120.0-450.0); RED CELL DISTRIBUTION WIDTH 15.2 % (11.5-14.5); WHITE BLOOD COUNT 10.7 10^3/ul (4.5-11.0)
--- NOTE | 2017-01-18 05:39 | CP.PCM.PN ---
Subjective - Date & Time of Evaluation Date of Evaluation: 01/18/17 Time of Evaluation: 05:35 - Subjective Subjective: S: Patient was seen because it was reported to me that patient had about 60 cc urine , dark red color urine. She denies hemptysis, hemetemesis, hematochezia, skin echymosis. Has been on coumadin. Medical record was reviewed. O: Last Vital Signs 3 Temp 98.3 F 01/18/17 05:24 Pulse 60 01/18/17 05:24 Resp 20 01/18/17 05:24 BP 140/77 01/18/17 05:24 Pulse Ox 95 01/18/17 05:24 Awake, alert, not in distress. LUNGS:Normal breathing pattern. SKIN: NO echymosis noted. A:Hematuria. P:Add CBC in AM labs. Orthostatic vitals x 1. Nurse will check with PMD befor giving coumadin. Objective - Vital Signs/Intake and Output Vital Signs (last 24 hours): Temp Pulse Resp BP Pulse Ox 98.3 F 60 20 140/77 95 01/18/17 05:24 01/18/17 05:24 01/18/17 05:24 01/18/17 05:24 01/18/17 05:24 - Medications Medications: Current Medications Amlodipine Besylate (Norvasc) 10 mg PO DAILY JAMES PRN Reason: Protocol Last Admin: 01/17/17 10:30 Dose: 10 mg Aspirin (Aspirin Chewable) 81 mg PO 0800 JAMES PRN Reason: Protocol Last Admin: 01/17/17 08:19 Dose: 81 mg Atorvastatin Calcium (Lipitor) 20 mg PO DIN JAMES PRN Reason: Protocol Last Admin: 01/17/17 17:43 Dose: 20 mg Budesonide (Pulmicort Respules) 0.5 mg IH [id number] JAMES PRN Reason: Protocol Last Admin: 01/17/17 20:43 Dose: 0.5 mg Famotidine (Pepcid) 40 mg PO HS JAMES PRN Reason: Protocol Last Admin: 01/17/17 21:27 Dose: 40 mg Furosemide (Lasix) 40 mg PO DAILY JAMES PRN Reason: Protocol Last Admin: 01/17/17 10:29 Dose: 40 mg Gabapentin (Neurontin) 300 mg PO TID JAMES PRN Reason: Protocol Last Admin: 01/17/17 17:44 Dose: 300 mg Levalbuterol HCl (Xopenex) 0.63 mg IH Q2H PRN; Protocol PRN Reason: Shortness of Breath Last Admin: 01/15/17 20:49 Dose: 0.63 mg Levalbuterol HCl (Xopenex) 0.63 mg IH [id number] JAMES Last Admin: 01/18/17 01:22 Dose: Not Given Magnesium Oxide (Mag-Ox) 400 mg PO BID JAMES PRN Reason: Protocol Last Admin: 01/17/17 17:44 Dose: 400 mg Metoprolol Tartrate (Lopressor) 50 mg PO 0800,1800 JAMES PRN Reason: Protocol Last Admin: 01/17/17 17:43 Dose: 50 mg Tramadol HCl (Ultram) 50 mg PO TID PRN PRN Reason: Pain, moderate (4-7) Last Admin: 01/17/17 20:37 Dose: 50 mg Warfarin Sodium (Coumadin) 3 mg PO 1800 JAMES PRN Reason: Protocol Last Admin: 01/17/17 17:43 Dose: 3 mg - Labs Labs: 01/18/17 05:00 PT 24.6 Seconds (9.9-11.8) H 01/15/17 06:15 INR 2.28 (0.93-1.08) H 01/15/17 06:15
[2017-01-18 05:43] LABS: ALKALINE PHOSPHATASE 134 U/L (38-133); ALT/SGPT 55 U/L (7-56); AST/SGOT 48 U/L (15-39); BILIRUBIN,TOTAL 0.9 mg/dL (0.2-1.3); BLOOD UREA NITROGEN 20 mg/dL (7-21); CALCIUM 9.9 mg/dL (8.4-10.5); CARBON DIOXIDE 29 mmol/L (21-33); CHLORIDE 99 mmol/L (98-107); GFR AFRICAN-AMERICAN > 60; GLUCOSE,RANDOM 116 mg/dL (70-110); INR 3.68 (0.93-1.08); POTASSIUM 3.9 mmol/L (3.6-5.0); SODIUM 137 mmol/L (132-148); TOTAL PROTEIN 7.8 g/dL (5.8-8.3)
[2017-01-18] MEDS: Budesonide 0.5 mg/2 ml Inhal Susp UD IH SCH (08:25)
[2017-01-18 08:53] VITALS: BP 116/61; PULSE 48
--- NOTE | 2017-01-19 07:33 | DS ---
The patient is 82 years old, seen and examined, was admitted with bilateral pneumonia, has been on IV antibiotic, doing well, eating and tolerating, ambulating with assistance, anxious to go home. PHYSICAL EXAMINATION: VITAL SIGNS: She is afebrile, pulse 60, respirations 20, blood pressure 140/77. LUNGS: Bilateral good airflow. No rhonchi or crackle. HEART: S1, S2 audible. ABDOMEN: Soft, nontender. No rebound, no guarding. NEUROLOGIC: She is awake and alert, communicative. Ambulatory. LABORATORY EXAM: WBC is 10.7, hemoglobin 11.9, hematocrit 35.1, platelets 240. PT 39.7, ____ 3.68. Chemistry: Sodium 137, potassium 3.9, chloride 99, CO2 of 29. BUN 20, creatinine 0.6, blood sugar 116. ASSESSMENT: 1. Resolved bilateral pneumonia. 2. Chronic atrial fibrillation. 3. Postherpetic neuralgia. 4. Hyperlipidemia. 5. Coronary artery disease. 6. Non-insulin dependent diabetes. 7. Deconditioning. PLAN: We will hold her Coumadin today, and I also told the nurse to hold Coumadin for tomorrow. Oth erwise, she can be discharged home on same medication as prior to admission including aspirin 81 ayleen y, Lasix 40 p.o. daily, Lipitor ____ mg daily, metoprolol 50 mg twice a day, magnesium 400 mg daily, Neurontin 300 three times a day, amlodipine 10 mg daily, Pepcid 40 mg at bedtime, Pulmicort and nebul izer treatment. She will follow with Dr. Josh Iyer as outpatient. Keli Arita MD cc: [id number] TT: 01/18/2017 12:46:15 tim
== END 2017-01-18 13:25 | disposition home or self-care (01) | DRG 194 ==
LOC: TRCU 15:36
PROVIDERS: ADMIT Internal Medicine Nephrology; ATTEND Internal Medicine Nephrology
PROC: 3E0F7GC Introduction of Other Therapeutic Substance into Respiratory Tract, Via Natural or Artificial Opening (ICD-10-PCS; 2017-01-10)
PROC: F07Z9FZ Gait Training/Functional Ambulation Treatment using Assistive, Adaptive, Supportive or Protective Equipment (ICD-10-PCS; principal; 2017-01-11)
PROC: F08Z4FZ Home Management Treatment using Assistive, Adaptive, Supportive or Protective Equipment (ICD-10-PCS; 2017-01-11)
DX: J18.9 Pneumonia, unspecified organism (principal); Z79.2 Long term (current) use of antibiotics; R26.2 Difficulty in walking, not elsewhere classified; B02.29 Other postherpetic nervous system involvement; I48.2 Chronic atrial fibrillation; I50.9 Heart failure, unspecified; I11.0 Hypertensive heart disease with heart failure; R31.9 Hematuria, unspecified; E11.9 Type 2 diabetes mellitus without complications; I25.10 Atherosclerotic heart disease of native coronary artery without angina pectoris; E78.5 Hyperlipidemia, unspecified; G89.29 Other chronic pain; M54.16 Radiculopathy, lumbar region; Y95 Nosocomial condition; Z79.01 Long term (current) use of anticoagulants; J98.01 Acute bronchospasm; Z79.84 Long term (current) use of oral hypoglycemic drugs

== ENCOUNTER 2017-01-20 08:24 | Inpatient (IN) | payer MEDICARE ==
[2017-01-20] MEDS ORDERED: Amiodarone 150 mg/D5W 100 ml 150 MG/100 ML BAG IVPB ONE (08:31)
--- NOTE | 2017-01-20 08:33 | ED PDOC ---
Arrival/HPI - History of Present Illness Time/Duration: 24 hours Symptom Onset: Sudden Symptom Course: Unchanged Context: Home <Alisa Al - Last Filed: 01/20/17 09:04> <Geovani Rowan - Last Filed: 01/20/17 09:35> - General Chief Complaint: Chest Pain Time Seen by Provider: 01/20/17 08:25 - History of Present Illness Narrative History of Present Illness (Text): 01/20/17 08:36 82 yo female PMH of CAD with 2 stents presented with chest discomfort and generalized weakness. Patient states that the chest discomfort started last night and continued into the morning. She describes the chest discomfort as heaviness. She has never experienced similar discomfort before. She also also reports cough with phlegm production, which started last night as well. Patient' s sports journalist is Dr. Lopes. (Alisa Al) Past Medical History - Provider Review Nursing Documentation Reviewed: Yes <Alisa Al - Last Filed: 01/20/17 09:04> - Infectious Disease Hx of Infectious Diseases: None - Cardiac Hx Congestive Heart Failure: Yes Hx Hypertension: Yes Other/Comment: cardiac stent - Pulmonary Hx Chronic Obstructive Pulmonary Disease (COPD): No - Neurological HX Cerebrovascular Accident: No - HEENT Hx HEENT Disorder: No - Renal Hx Renal Disorder: No - Endocrine/Metabolic Hx Diabetes Mellitus Type 1: No Hx Diabetes Mellitus Type 2: No Hx Hypothyroidism: No - Hematological/Oncological Hx Cancer: No - Integumentary Hx Dermatological Disorder: Yes Other/Comment: Shingles on left side of neck on 04/14/16. 5-09-02 LEFT HIP WITH IRREGULARLY SHAPED STAGE 2 PRESURE ULCER .MEASURES 1.5 X 2.5 CM. RED AREA. MILD SEROUS DRAIANGE. BILATERAL LE DARK TO LIGHT BROWNISH SKIN DISCOLORATION.EDEMA + 1.PITTING - Musculoskeletal/Rheumatological Hx Falls: No - Gastrointestinal Hx Gastrointestinal Disorders: No - Genitourinary/Gynecological Hx Reproductive Disorders: No - Psychiatric Hx Psychophysiologic Disorder: No Hx Emotional Abuse: No Hx Physical Abuse: No Hx Substance Use: No - Surgical History Hx Coronary Stent: Yes (X2) Other/Comment: CARDIAC STENT X 2 - Anesthesia Hx Anesthesia Reactions: No Hx Malignant Hyperthermia: No - Suicidal Assessment Feels Threatened In Home Enviroment: No <Geovani Rowan - Last Filed: 01/20/17 09:35> Family/Social History - Physician Review Nursing Documentation Reviewed: Yes Family/Social History: No Known Family HX <Alisa Al - Last Filed: 01/20/17 09:04> Smoking Status: Never Smoked Hx Alcohol Use: No Hx Substance Use: No <Geovani Rowan - Last Filed: 01/20/17 09:35> Allergies/Home Meds <Alisa Al - Last Filed: 01/20/17 09:04> <Geovani Rowan - Last Filed: 01/20/17 09:35> Allergies/Adverse Reactions: Allergies No Known Allergies Allergy (Verified 01/10/17 16:49) Home Medications: Home Meds Medication Instructions Recorded Confirmed Gabapentin [Neurontin] 300 mg PO TID 04/14/14 01/10/17 Metoprolol Tartrate [Lopressor] 50 mg PO BID 12/15/16 01/10/17 amLODIPine [Norvasc] 10 mg PO DAILY 12/15/16 01/10/17 Albuterol/Ipratropium [Duoneb 3 3 ml IH DAILY 01/06/17 01/10/17 MG/3 Ml-0.5 MG/3 Ml 3 Ml] Atorvastatin [Lipitor] 20 mg PO DAILY 01/06/17 01/10/17 Furosemide [Lasix] 40 mg PO DAILY 01/06/17 01/10/17 levoFLOXacin [Levaquin] 500 mg PO DAILY 01/06/17 01/10/17 oxyCODONE/Acetaminophen [Percocet 1 tab PO PRN PRN 01/06/17 01/10/17 5/325 mg Tab] Review of Systems - Review of Systems Constitutional: Normal. absent: Fatigue, Weight Change, Fevers Eyes: Vision Changes ENT: Normal Respiratory: Cough, Sputum. absent: SOB Cardiovascular: Chest Pain, Palpitations. absent: Edema, Syncope Gastrointestinal: Normal. absent: Abdominal Pain, Constipation, Diarrhea, Nausea, Vomiting Genitourinary Female: Normal. absent: Dysuria, Frequency, Hematuria Musculoskeletal: Normal. absent: Arthralgias, Back Pain Skin: Normal. absent: Rash, Laceration Neurological: Dizziness. absent: Headache Endocrine: Normal. absent: Diaphoresis Hemo/Lymphatic: Normal. absent: Easy Bleeding, Easy Bruising Psychiatric: Normal <ServandoAlisa - Last Filed: 01/20/17 09:04> Physical Exam Vital Signs Reviewed: Yes Appearance: Positive for: Well-Appearing, Comfortable Pain Distress: None Mental Status: Positive for: Alert and Oriented X 3 - Systems Exam Head: Present: Atraumatic, Normocephalic Extroacular Muscles: Present: EOMI Conjunctiva: Present: Normal Mouth: Present: Moist Mucous Membranes Nose (External): Present: Atraumatic Respiratory/Chest: Present: Clear to Auscultation, Good Air Exchange. No: Respiratory Distress, Accessory Muscle Use, Wheezes, Rales, Rhonchi, Tachypneic Cardiovascular: Present: Irregular Rhythm, Tachycardic. No: Murmurs Abdomen: Present: Normal Bowel Sounds. No: Tenderness, Distention, Peritoneal Signs, Guarding Upper Extremity: Present: Normal Inspection. No: Cyanosis, Edema Lower Extremity: Present: Normal Inspection. No: Edema, CALF TENDERNESS Neurological: Present: GCS=15, CN II-XII Intact, Speech Normal Skin: Present: Warm, Dry, Normal Color. No: Rashes Psychiatric: Present: Alert, Oriented x 3 <Alisa Al - Last Filed: 01/20/17 09:04> Medical Decision Making - EKG Interpretation Interpreted by ED Physician: Yes Type: 12 lead EKG <Alisa Al - Last Filed: 01/20/17 09:04> <Geovani Rowan - Last Filed: 01/20/17 09:35> ED Course and Treatment: 01/20/17 08:47 Impression: 82 yo female with PMH of CAD s/p 2 stents presented with chest discomfort Differential Diagnosis included but are not limited to: ACS, [place] Plan: - EKG - CBC - CMP - trops - cxr -- Reassess and disposition Progress Notes: EKG showed v-tach, compared with previous EKG. Cardiology, Dr. Lopes was contacted. Amiodarone and asa was ordered. 01/20/17 08:56 CXR shows blunting of the R costophrenic angle, pleural effusion, improved from previous CXR on 01/08/17. Will order BNP. 01/20/17 09:04 (Servando,Alisa) Patient Seen With Resident: In agreement with resident note which contains more details about the patient. Patient was seen and evaluated with resident. Came up with plan and treatment together. Previous record reviewed. Patient last reported to emergency department on and treated for bilateral pneumonia. Patient has a history of chronic Atrial fibrillation, coronary artery disease, dyslipidemia and diabetes. EKG sent to Dr. Lopes. Discussed with him, agrees with Amiodarone IV. 01/20/17 09:33 seen by Michele Lopes and Violet, tele/obs to Dr. Lazo's service pt with no cp at this time, aware of and agree with plan pt's repeat EKG with rate 91 (Geovani Rowan) - Lab Interpretations Lab Results: 01/20/17 05:02 01/20/17 05:02 Lab Results 01/20/17 05:02: Sodium 139, Potassium 3.6, Chloride 101, Carbon Dioxide 28, Anion Gap 14, BUN 10, Creatinine 0.6, Est GFR ( Amer) > 60, Est GFR (Non- Af Amer) > 60, Random Glucose 109, Calcium 10.2, Total Bilirubin 1.2, AST 32, ALT 47, Alkaline Phosphatase 157 H, Lactate Dehydrogenase 433, Total Creatine Kinase 26 L, Troponin I < 0.01, Total Protein 8.1, Albumin 4.1, Globulin 4.0, Albumin/Globulin Ratio 1.0 L 01/20/17 05:02: PT 55.8 H*, INR 5.17 H*, APTT 47.0 H 01/20/17 05:02: WBC 11.7 H, RBC 4.09, Hgb 12.4, Hct 36.6, MCV 89.5, MCH 30.3, MCHC 33.9, RDW 14.7 H, Plt Count 242, MPV 10.6 - RAD Interpretation Radiology Orders: 01/20/17 08:29 X-RAY [CHEST PORTABLE] [RAD] Stat - EKG Interpretation EKG Interpretation (Text): 01/20/17 08:51 RBBB, vtach (Servando,Alisa) - Medication Orders Current Medication Orders: Discontinued Medications Aspirin (Aspirin) 325 mg PO STAT STA Stop: 01/20/17 08:29 Last Admin: 01/20/17 08:54 Dose: 325 mg Amiodarone HCl/Dextrose (Nexterone 150 Mg In Dextrose 100 Ml (Premix)) 150 mg in 100 mls @ 600 mls/hr IVPB ONCE ONE PRN Reason: Protocol Stop: 01/20/17 08:40 Last Admin: 01/20/17 08:54 Dose: 600 mls/hr Nitroglycerin (Nitrostat Sl Tab) 0.3 mg SL STAT STA Stop: 01/20/17 08:42 Last Admin: 01/20/17 08:54 Dose: 0.3 mg <Alisa Al - Last Filed: 01/20/17 09:04> - Scribe Statement The provider has reviewed the documentation as recorded by the Scribe <Geovani Rowan - Last Filed: 01/20/17 09:35> - Scribe Statement Skip Shaffer Provider Scribe Attestation: All medical record entries made by the Scribe were at my direction and personally dictated by me. I have reviewed the chart and agree that the record accurately reflects my personal performance of the history, physical exam, medical decision making, and the department course for this patient. I have also personally directed, reviewed, and agree with the discharge instructions and disposition. (Geovani Rowan) Disposition/Present on Arrival <Alisa Al - Last Filed: 01/20/17 09:04> - Present on Arrival Any Indicators Present on Arrival: No History of DVT/PE: No History of Uncontrolled Diabetes: No Urinary Catheter: No History of Decub. Ulcer: No History Surgical Site Infection Following: None - Disposition Have Diagnosis and Disposition been Completed?: Yes Disposition Time: 09:31 Patient Plan: Observation <Geovani Rowan - Last Filed: 01/20/17 09:35> - Disposition Diagnosis: Chest pain Disposition: HOSPITALIZED Condition: FAIR Discharge Instructions (ExitCare): Chest Pain (ED) Referrals: Maye Lopez, [Primary Care Provider] - Follow up with primary
[2017-01-20 08:52] LABS: HEMATOCRIT 36.6 % (36.0-48.0); MEAN CELL VOLUME 89.5 fL (80.0-105.0); MEAN CORPUSCULAR HEMOGLOBIN 30.3 pg (25.0-35.0); MEAN CORPUSCULAR HGB CONC 33.9 g/dl (31.0-37.0); MEAN PLATELET VOLUME 10.6 fl (7.0-11.0); RED CELL DISTRIBUTION WIDTH 14.7 % (11.5-14.5); WHITE BLOOD COUNT 11.7 10^3/ul (4.5-11.0)
[2017-01-20 09:03] LABS: ALKALINE PHOSPHATASE 157 U/L (38-133); ALT/SGPT 47 U/L (7-56); AST/SGOT 32 U/L (15-39); BILIRUBIN,TOTAL 1.2 mg/dL (0.2-1.3); BLOOD UREA NITROGEN 10 mg/dL (7-21); CALCIUM 10.2 mg/dL (8.4-10.5); CARBON DIOXIDE 28 mmol/L (21-33); CHLORIDE 101 mmol/L (98-107); GFR AFRICAN-AMERICAN > 60; GLUCOSE,RANDOM 109 mg/dL (70-110); POTASSIUM 3.6 mmol/L (3.6-5.0); SODIUM 139 mmol/L (132-148); TOTAL PROTEIN 8.1 g/dL (5.8-8.3)
[2017-01-20 09:14] LABS: INR 5.17 (0.93-1.08)
[2017-01-20 09:15] LABS: TROPONIN I < 0.01 ng/mL
--- NOTE | 2017-01-20 09:28 | RAD ---
HISTORY: chest discomfort COMPARISON: 01/09/2017 FINDINGS: LUNGS: There is an infiltrate at the right lung base decreased from the prior exam. PLEURA: Blunting of the costophrenic angles consistent with small effusions CARDIOVASCULAR: Moderate cardiomegaly OSSEOUS STRUCTURES: No significant abnormalities. VISUALIZED UPPER ABDOMEN: Normal. OTHER FINDINGS: None. IMPRESSION: Decreasing infiltrate at the right lung base
[2017-01-20] MEDS ORDERED: Potassium Chloride 20 mEq ER Tab PO STA (13:11)
--- NOTE | 2017-01-20 15:11 | CON ---
DATE: 01/20/2017 REASON FOR CONSULTATION AND FOLLOWUP: Arrhythmia, chest pain. BRIEF CLINICAL HISTORY: This is an 82-year-old female with a past medical history significant for PT CA and stent. Came in with a complaint of chest pain, found to be in AFib with wide complex tachycar grady, right bundle branch block, AFib. The patient was given IV amiodarone, slowed down to AFib, norm al ____ QRS complex with a heart rate of 70, AFib. History of chronic atrial fibrillation. Denies a ny chest pain now. is at the bedside. PAST MEDICAL HISTORY: Significant for coronary artery disease, status post stent in 1998, repeat cat heterization done 5 years ago, essentially negative, had a recent stress 2013 that showed inferolater al ischemia. The patient underwent a cardiac catheterization and angioplasty from left radial approa ch. At that time, the cardiac catheterization showed left main ____ significant disease, moderate LA , large caliber artery, mid LAD 90% stenosis, circumflex is dominant, essentially free of significant disease, RCA is small caliber vessels. LV gram showed ejection fraction 55%-60%. The patient under went PTCA with a drug-eluting stent of LAD. Rest of the hospital course remained uneventful. The alexandria montes has history of chronic atrial fibrillation on Coumadin. PREVIOUS CARDIAC WORKUP: As mentioned, history of cardiac catheterization 04/05/2014 that shows posit deya stress test and had a PTCA of LAD was done. As mentioned, last catheterization on 04/21/2014. At that time, cardiac catheterization, mid stent LAD was done. Prior PTCA was 08/17/____. Last cathete rization dated 04/21/2014 and a stent was done in the LAD, mid LAD 05/06/2014. History of chronic atri al fibrillation. SOCIAL HISTORY: Denies smoking. Denies any history of alcohol abuse. CURRENT MEDICATIONS: The patient is taking at home Coumadin, potassium chloride, losartan, aspirin, gabapentin. REVIEW OF SYSTEMS: A 14-point is negative except as per HPI. PHYSICAL EXAMINATION: VITAL SIGNS: Temperature afebrile, heart rate ____, blood pressure 164/____. HEENT: PERRLA. Extraocular muscles intact. NECK: Supple. No carotid bruits. No thyromegaly. CHEST: Clear to auscultation. HEART: S1, S2 regular. ABDOMEN: Soft. EXTREMITIES: Clubbing, cyanosis negative. BLOOD WORKUP: WBC ____, hemoglobin 12.____, hematocrit 36.6, platelet count 242. Chemistry shows so dium ____, potassium 3.6, chloride 101, carbon dioxide 28, anion gap of 14, BUN 10, creatinine 0.6. INR 5.17, supratherapeutic INR. IMPRESSION: Supratherapeutic INR, atrial fibrillation with rapid ventricular rate, bundle branch blo ck, history of coronary artery disease, status post stent in left anterior descending most recently o n 05/06/2014, prior to that in 1996, prior to that history of percutaneous transluminal coronary angio plasty in 1996, history of chronic atrial fibrillation, history of congestive heart failure, history of moderate to severe tricuspid regurgitation, right heart failure, moderate to severe pulmonary hype rtension, right ventricular systolic pressure 64. RECOMMENDATION: Hold Coumadin. Amiodarone was loaded and we will continue beta dami and follow u p CPK, troponin. Follow up lipid profile, TSH, hemoglobin A1c. Further recommendation based on hosp ital course. We will follow with you. We will follow up. Further recommendation based on hospital course. We will follow with you. Maurizio Lopes MD cc: [id number] TT: 01/20/2017 14:13:05 Confirmation # [id number] Dictation # [id number] en 01/20/2017 14:10:43
--- NOTE | 2017-01-20 20:48 | HP ---
CHIEF COMPLAINT AND HISTORY OF PRESENT ILLNESS: This is an 82-year-old female who is coming into the hospital complaining of chest pain. The patient was recently discharged from the transitional care unit. She has a past medical history of coronary artery disease with stents. She states she was hav ing chest pain that was substernal, nonradiating. She denies any shortness of breath. She has no na usea, no vomiting. She said it a heaviness that she was feeling. She also was complaining of cough and congestion. The patient has a history of atrial fibrillation that is chronic. She has no dysuri a, no frequency, no nocturia. REVIEW OF SYSTEMS: All other review of symptoms are within normal limits except as mentioned. ALLERGIES: No known drug allergies. HOME MEDICATIONS: Neurontin, Lopressor, Norvasc, Lipitor, Lasix, Percocet. PAST MEDICAL HISTORY: 1. Atrial fibrillation, on Coumadin. 2. Hypertension. 3. Dyslipidemia. 4. Coronary artery disease with stent. 5. Left-sided kidney stones with hydroureter, status post stent. SOCIAL HISTORY: She never smoked. She denies drugs or alcohol. FAMILY HISTORY: Noncontributory. PHYSICAL EXAMINATION: VITAL SIGNS: She has a temperature of 98.2, pulse of 92, blood pressure 125/79, respirations 16, O2 saturation 97%. Height is 5 feet 5 inches. Weight is 220 pounds. GENERAL: Patient lying in bed, flat, and in no apparent distress. HEAD AND NECK EXAM: Atraumatic, normocephalic. Conjunctivae are pink. Throat clear and mouth with moist mucosa. Oropharynx benign. EYES: Extraocular movements are intact. PERRLA. NECK: Supple. No JVD, thyromegaly, or adenopathy. No bruits. HEART: S1 and S2 regular rate and rhythm. No murmurs, rubs, or gallops. LUNGS: Clear to auscultation bilaterally. No wheezing rales or rhonchi appreciated. No retraction s on exam. ABDOMEN: Soft, nontender, nondistended. Bowel sounds are positive in all quadrants. No rebound. No hepatosplenomegaly. EXTREMITIES: No cyanosis, clubbing, or edema. NEURO: No facial asymmetry, tongue is midline, no uvula deviation. Power is 5/5 in upper extremity and 5/5 in lower extremity. Sensation is normal in upper extremity and lower extremity. PSYCH: Awake, alert, oriented x3. No anxiety or depression symptoms. Good insight. Normal affec t. : No CVA tenderness VASCULAR: 2+ pulses in carotid and pedal pulses. SKIN: No erythema or abnormal nodules noted. SPINE: Normal curvature. LYMPHADENOPATHY: No anterior cervical or posterior cervical adenopathy. No inguinal adenopathy. LABORATORY DATA: White count 11.7, hemoglobin 12.4. INR is 5.1. Sodium is 139, potassium is 3.6, c reatinine is 0.6, albumin is 4.1. Chest x-ray: Decreasing infiltrate at the right lung base. EKG done with AFib with wide complex tac hycardia and right bundle branch block. ASSESSMENT: 1. Chest pain. 2. Atrial fibrillation, on Coumadin on hold for high INR. 3. Coronary artery disease. 4. Tricuspid regurgitation. 5. Pulmonary hypertension. 6. Nephrolithiasis. 7. Hypertension. 8. Dyslipidemia. PLAN: The patient is currently comfortable. She is going to be admitted to the hospital. The patie nt's initial troponin has been negative. She was going to be seen by Dr. Lopes. I did speak to the yunior pollard's at the bedside to give him an update on the patient's diagnosis and plan of care. S he is going to be on metoprolol. She is going to be on aspirin. She also was given amiodarone in th e ER. She is on Cardizem for her atrial fibrillation. I will continue her gabapentin. She is also on losartan. Moreno Lazo MD cc: [id number] TT: 01/20/2017 20:47:37 mike
[2017-01-20 21:25] VITALS: BMI 36.6
[2017-01-20] MEDS ORDERED: Pneumococcal 23-Valent Vaccine IM ONE (21:25)
--- NOTE | 2017-01-21 07:04 | PN ---
DATE: 01/21/2017 SUBJECTIVE: The patient has no complaints of any chest pain or shortness of breath, no headaches or dizziness. PHYSICAL EXAMINATION: VITAL SIGNS: Temperature is 97.8, pulse of 53, blood pressure 132/60, respiration is 20. GENERAL: The patient comfortable, in no acute distress. HEENT: Anicteric sclerae. Moist mucosa. NECK: No JVD or adenopathy. CARDIAC: S1/S2. No murmurs. No rubs. Regular. RESPIRATORY: Clear to auscultation bilaterally. No wheezes, rales, or rhonchi. Good air entry. ABDOMEN: Bowel sounds are positive, soft, nontender, and nondistended. EXTREMITIES: No edema. Has 1+ pulses. LABORATORY DATA: White count of 11.7, hemoglobin is 12.4, creatinine 0.6. ASSESSMENT: 1. Upper respiratory tract infection. 2. Chest pain. 3. Atrial fibrillation, on Coumadin. 4. Coronary artery disease. 5. Tricuspid regurgitation. 6. Pulmonary hypertension. 7. Nephrolithiasis. 8. Hypertension. 9. Dyslipidemia. PLAN: The patient is currently comfortable. She is going to be on Cardizem for her atrial fibrillat ion. She is on losartan for her hypertension. She is going to continue. She was given Lasix yester day. She is on Neurontin for her neuropathy. She is on metoprolol. She is going to be getting a st ress test today. She is on a heart healthy diet. If her stress test is negative, we will most likel y discharge the patient home. Moreno Lazo MD cc: [id number] TT: 01/21/2017 07:04:01 Confirmation # [id number] Dictation # [id number] tn
[2017-01-21 08:01] LABS: ADD MANUAL DIFF? NO
[2017-01-21 08:04] LABS: BASO # 0.03 K/mm3 (0.0-2.0); BASO % 0.3 % (0.0-3.0); EOS # 0.2 (0.0-0.7); EOS % 2.3 % (1.5-5.0); GRAN # 6.75 (1.4-6.5); GRAN % 74.1 % (50.0-68.0); HEMATOCRIT 38.3 % (36.0-48.0); LYMPH # 1.5 (1.2-3.4); LYMPH % 16.3 % (22.0-35.0); MEAN CELL VOLUME 90.1 fL (80.0-105.0); MEAN CORPUSCULAR HEMOGLOBIN 29.6 pg (25.0-35.0); MEAN CORPUSCULAR HGB CONC 32.9 g/dl (31.0-37.0); MEAN PLATELET VOLUME 10.7 fl (7.0-11.0); MONO # 0.6 (0.1-0.6); PLATELET COUNT 236 10^3/uL (120.0-450.0); RED CELL DISTRIBUTION WIDTH 15.3 % (11.5-14.5); WHITE BLOOD COUNT 9.1 10^3/ul (4.5-11.0)
[2017-01-21 08:21] LABS: INR 4.69 (0.93-1.08)
[2017-01-21 08:38] LABS: TROPONIN I < 0.01 ng/mL
[2017-01-21 08:45] LABS: ALKALINE PHOSPHATASE 134 U/L (38-133); ALT/SGPT 38 U/L (7-56); AST/SGOT 26 U/L (15-39); BLOOD UREA NITROGEN 12 mg/dL (7-21); CARBON DIOXIDE 28 mmol/L (21-33); CHLORIDE 105 mmol/L (98-107); CHOLESTEROL 136 mg/dL (130-200); GFR AFRICAN-AMERICAN > 60; GLUCOSE,RANDOM 88 mg/dL (70-110); MAGNESIUM 1.9 mg/dL (1.7-2.2); PHOSPHOROUS 3.6 mg/dL (2.5-4.5); POTASSIUM 3.9 mmol/L (3.6-5.0); SODIUM 140 mmol/L (132-148); TOTAL PROTEIN 7.7 g/dL (5.8-8.3)
[2017-01-21] MEDS ORDERED: Aminophylline 25 mg/ml Inj ONE (10:39)
--- NOTE | 2017-01-21 16:25 | PN ---
DATE: 01/21/2017 REASON FOR CONSULTATION AND FOLLOWUP: Chest pain, arrhythmia. BRIEF CLINICAL HISTORY: This is an 82-year-old female with past medical history of multiple PTCAs, c ken in with chest pain and AFib with rapid ventricular rate, wide complex tachycardia, started on ami odarone and 2.5 mg of verapamil given. Converted to narrow complex AFib. Denies any chest pain toda y. The patient is scheduled for a stress test today. PHYSICAL EXAMINATION: VITAL SIGNS: Temperature afebrile, heart rate 82, blood pressure 140/76. HEENT: PERRLA. Extraocular muscles intact. NECK: Supple. No carotid bruits. No thyromegaly. CHEST: Clear to auscultation. HEART: S1, S2 regular. ABDOMEN: Soft. EXTREMITIES: Clubbing and cyanosis negative. BLOOD WORKUP: As follows: WBC 9.____, hemoglobin 12.6, hematocrit 38.3, platelet count 236. Chemis try shows sodium 140, potassium 3.9, chloride 105, carbon dioxide 28, anion gap of 11, BUN 12, creati nine 0.6. Troponin 0.01, negative. IMPRESSION: No evidence of acute coronary syndrome. No evidence of acute unstable angina. Troponin remains negative. Chronic atrial fibrillation, on anticoagulation. INR today is 4.96, trending daniel n. History of coronary artery disease status post multiple PTCAs in the past. History of last jewels terization 04/05/2014 after stress test was abnormal. The patient had a percutaneous transluminal co ronary angioplasty of left anterior descending done. ____, patient had a stent in left anterior desc ending, was done on 04/21/2014. History of right heart failure, history of moderate to severe tricus pid regurgitation, moderate to severe pulmonary hypertension, right ventricular systolic pressure of 64. RECOMMENDATION: Will get echo, stress test. Hold Coumadin. Continue beta dami, continue baby as pirin, continue Cardizem, continue losartan, continue low-dose beta-dami. Will follow with you. Further recommendation after the stress test. will follow with you. Thank you, Dr. Lazo, for providing the opportunity in taking care of this patient. Will follow w ith you. Maurizio Lopes MD cc: [id number] TT: 01/21/2017 16:15:28 Confirmation # [id number] Dictation # [id number] mn
--- NOTE | 2017-01-21 16:46 | CARD ---
APPROVED REPORT EKG Measurement Heart [id number] <Conclusion> AF with wide complex beats with RBBB pattern, probably Eliseo beats
--- NOTE | 2017-01-21 16:48 | CARD ---
APPROVED REPORT EKG Measurement Heart [id number] <Conclusion> AF with RVR RBBB STTW changes c/w ischemia PVCs
--- NOTE | 2017-01-21 22:17 | CARD ---
APPROVED REPORT Protocol: LEXISCAN Test Type: Lexiscan Sestamibi Stress Test Attending Physician: Dr. Maurizio Arceo Referring Physician: Dr. Moreno Lazo Test Indications: Chest Pain Height:5 ft 7 in Weight:187lbs Medications: Aspirin,Cardizem,Lopressor Medical History: 82 y/o female. Hx of 2 stents,hyertension, hyperlipidemia. Target HR: 137 bpm Resting ECG: Atrial Fibrillation. Q I,AVL. ST_T Changes. Resting Heart Rate: 54 bpm Resting Blood Pressure: 100/60mmHg Submaximum (85%): 116 bpm PROCEDURE Pharmacologic stress testing was performed using 0.4mg per 5ml of regadenoson given intravenously over 7-10 seconds. POST EXERCISE Reason for Termination: Protocol completed Target HR: No Max HR: 54 bpm 51% of Maximum Predicted HR: 137 bpm Exercise duration: 00:36 min:sec, 0 Stage Exercise capacity: 1.0METs Max Blood Pressure: 104/60mmHg Blood Pressure response to exercise: normal resting BP - appropriate response Heart Rate response to exercise: appropriate Chest Pain: Yes, Funny Sensation in Chest. Angina index: 0 Arrhythmia: Yes, Aberrantly Conducted Beats. ST Change: Yes, No Additional ST_T Changes. Deviation: 0 mm INTERPRETATION Stress EKG Conclusion: IV LEXISCAN NUCLEAR STRESS TEST DURING WHICH PATIENT FELT FUNNY SENSATION IN CHEST. NO ADDITIONAL ST-T CHANGES, NUCLEAR SCAN REPORT PENDING. Signed by Maurizio Arceo Electronically Approved: 01/21/2017 13:34:57 EXAM: Myocardial Perfusion REST/STRESS Stress Test Type: Pharmacologic Imaging Protocol Rest Spect myocardial perfusion imaging was performed in supine position 45 minutes following the injection of 10.4 mCi of Tc-99 Myoview. At peak stress, the patient was injected intravenously with 30.7mCi of Tc-99 tetrofosmin after an infusion time of 0 minutes and 10 seconds. Gated Stress Spect was performed 70 minutes after intravenous Tc-99 Myoview injection. The images were gated to evaluate regional wall motion and calculate ventricular ejection fraction.Images were reconstructed using backfilter projection method in short horizontal and verticle long axis. Spect slices were generated. LV Perfusion The quality of the study is good. The left ventricle is normal in size. The right ventricle is unremarkable. The lung uptake is normal. The distribution of tracer reveals an area of mildlu and diffusely decreased perfusion in the anterior wall on the stress study. The remainder of the LV myocardium is unremarkable. The rest myocardial perfusion study shows improvement of the defect. Wall Motion Wall motion study shows good contractility of the left ventricle. LVEF = 61%. Conclusion 1. Probably bnormal SPECT myocardial perfusion study. 2. Reversible, anterior defect is suspicious of ischemia. 3. Normal gated wall motion and thickening of the left ventricle.
[2017-01-22 09:12] LABS: INR 3.44 (0.93-1.08)
--- NOTE | 2017-01-22 09:59 | PN ---
DATE: 01/22/2017 SUBJECTIVE: The patient has no complaints of any chest pain, no shortness of breath, no headaches. She had come in with chest pain. She was seen by Dr. Lopes and had a stress test done. The patient's stress test showed reversible anterior defect suspicious for ischemia with EF of 61%. We will speak to Dr. Lopes about possible catheterization. PHYSICAL EXAMINATION: VITAL SIGNS: Temperature is 98, pulse of 60, blood pressure 140/67, respirations 20, O2 saturation 9 8%. GENERAL: The patient comfortable, in no acute distress. HEENT: Anicteric sclerae. Moist mucosa. NECK: No JVD or adenopathy. CARDIAC: S1/S2. No murmurs. No rubs. Regular. RESPIRATORY: Clear to auscultation bilaterally. No wheezes, rales, or rhonchi. Good air entry. ABDOMEN: Bowel sounds are positive, soft, nontender, and nondistended. EXTREMITIES: No edema. Has 1+ pulses. ASSESSMENT: 1. Chest pain with positive stress test. 2. Atrial fibrillation, on Coumadin. 3. Upper respiratory tract infection. 4. Tricuspid regurgitation. 5. Pulmonary hypertension. 6. Nephrolithiasis. 7. Hypertension. 8. Dyslipidemia. PLAN: The patient is currently on Neurontin for neuropathy. She is on aspirin. She is going to con tinue with Cardizem for her atrial fibrillation. She is on losartan. She is on aspirin and metoprol ol for her chest pain. Her INR was elevated yesterday, but trending down. We will await further inp ut from Dr. Lopes from cardiology regarding her possibility of having a cath. Moreno Lazo MD cc: [id number] TT: 01/22/2017 08:09:51 Confirmation # [id number] Dictation # [id number] en
[2017-01-22] MEDS: Nystatin 100,000 Units/gm Topical Pow(15 gm) TOP SCH ×2 (10:38→18:26)
--- NOTE | 2017-01-22 11:05 | CARD ---
APPROVED REPORT EKG Measurement Heart [id number] <Conclusion> A. Fib. PVC's vs. Eliseo beats. NSSTW changes
--- NOTE | 2017-01-22 17:13 | PN ---
DATE: 01/22/2017 REASON FOR CONSULTATION AND FOLLOWUP: Chest pain, arrhythmia, atrial fibrillation, abnormal stress t est. BRIEF CLINICAL HISTORY: This is an 82-year-old female with past medical history significant for mult iple PTCAs. Came with a complaint of chest pain, AFib with rapid ventricular rate. Rate is well con trolled. The patient underwent stress test, abnormal. The patient has a supratherapeutic INR, Couma din is on hold. PHYSICAL EXAMINATION: As follows: VITAL SIGNS: Temperature afebrile, heart rate 56, blood pressure 145/60. HEENT: PERRLA, intact. NECK: Supple. No carotid bruits. No thyromegaly. CHEST: Clear to auscultation. HEART: S1, S2 regular. ABDOMEN: Soft. EXTREMITIES: Clubbing and cyanosis negative. BLOOD WORKUP: As follows: WBC ____, hemoglobin 12.6, hematocrit 38.3, platelet count 236. INR 3.44 . Sodium 140, potassium 3.9, chloride 105, carbon dioxide ____, anion gap of 11, BUN 12, creatinine 0.6. Troponin 0.01. Stress test showed ____ probably abnormal SPECT myocardial perfusion study, rev ersible anterior defect suspicious for ischemia. IMPRESSION: This is an 82-year-old female with a history of multiple percutaneous transluminal coron iraida angioplasty admitted with chest pain, atrial fibrillation with rapid ventricular rate, rate is we ll controlled, chronic atrial fibrillation on anticoagulation. Abnormal stress test shows suspicious for ischemia, suspicious for ischemia, ejection fraction 61%. INR today is 3.46. Last catheterizat ion 04/05/2014 after the stress test abnormal, history of multiple percutaneous transluminal coronary angioplasties and at that time percutaneous transluminal coronary angioplasty of left anterior desce nding was done. History of right heart failure, history of [id number] tricuspid regurgitatio n, [id number]-[id number] pulmonary hypertension, right ventricular systolic pressure is 64. RECOMMENDATION: Continue to hold Coumadin. We will give 5 mg vitamin K now in the morning and ____ at 5 p.m. Keep n.p.o. after the breakfast for cardiac catheterization tomorrow at 3 if the INR is le ss than or below 1.5. We will follow with you. Thank you, Dr. Lazo, for providing the opportunity in taking care of the patient. Discussed with the patient. The patient agreeable to proceed with cardiac catheterization. We will load with Hayde ix. Maurizio Lopes MD cc: [id number] TT: 01/22/2017 17:12:45 Confirmation # [id number] Dictation # [id number] sn
[2017-01-23 06:01] LABS: ADD MANUAL DIFF? NO
[2017-01-23 06:17] LABS: BASO # 0.03 K/mm3 (0.0-2.0); BASO % 0.4 % (0.0-3.0); EOS # 0.2 (0.0-0.7); GRAN # 5.49 (1.4-6.5); GRAN % 68.7 % (50.0-68.0); LYMPH # 1.6 (1.2-3.4); LYMPH % 19.8 % (22.0-35.0); MEAN CELL VOLUME 90.2 fL (80.0-105.0); MEAN CORPUSCULAR HEMOGLOBIN 30.1 pg (25.0-35.0); MEAN CORPUSCULAR HGB CONC 33.3 g/dl (31.0-37.0); MEAN PLATELET VOLUME 10.1 fl (7.0-11.0); MONO # 0.7 (0.1-0.6); MONO % 8.1 % (1.0-6.0); PLATELET COUNT 243 10^3/uL (120.0-450.0); RED CELL DISTRIBUTION WIDTH 15.5 % (11.5-14.5)
[2017-01-23 06:22] LABS: INR 1.42 (0.93-1.08)
[2017-01-23 06:23] LABS: ALKALINE PHOSPHATASE 117 U/L (38-133); ALT/SGPT 42 U/L (7-56); AST/SGOT 26 U/L (15-39); BILIRUBIN,TOTAL 0.8 mg/dL (0.2-1.3); BLOOD UREA NITROGEN 12 mg/dL (7-21); CALCIUM 9.7 mg/dL (8.4-10.5); CARBON DIOXIDE 27 mmol/L (21-33); CHLORIDE 105 mmol/L (98-107); GFR AFRICAN-AMERICAN > 60; GLUCOSE,RANDOM 89 mg/dL (70-110); MAGNESIUM 1.8 mg/dL (1.7-2.2); PHOSPHOROUS 3.3 mg/dL (2.5-4.5); POTASSIUM 4.1 mmol/L (3.6-5.0); SODIUM 139 mmol/L (132-148)
--- NOTE | 2017-01-23 10:19 | PN ---
DATE: 01/23/2017 REASON FOR CONSULTATION AND FOLLOWUP: Chest pain, arrhythmia, atrial fibrillation, abnormal stress t est. BRIEF CLINICAL HISTORY: An 82-year-old female with a history of multiple PTCA in the past, admitted with chest pain, AFib with rapid ventricular rate, which is well controlled, history of chronic atria l fibrillation, was on Coumadin, supratherapeutic INR, had an abnormal stress test. PHYSICAL EXAMINATION: VITAL SIGNS: Temperature afebrile, heart rate 85, blood pressure 148/70. HEENT: PERRLA. Extraocular muscles intact. NECK: Supple. No carotid bruit, no thyromegaly. CHEST: Clear to auscultation. HEART: S1, S2 regular. ABDOMEN: Soft. EXTREMITIES: Clubbing, cyanosis negative. BLOOD WORKUP: WBC 8, hemoglobin 12, hematocrit 36.0, platelet count 243. Chemistry shows sodium 139 , potassium 4. , chloride 105, carbon dioxide 27, anion gap of 11, BUN 12, creatinine 0.6. IMPRESSION: Abnormal stress test, acute coronary syndrome, unstable angina, abnormal stress test, sh owed suspicious for ischemia, probably abnormal myocardial perfusion study, reversible anterior defec t, suspicious for ischemia, ejection fraction 61%, INR today is 1.42. The patient is scheduled for cardiac catheterization today. Discussed with the daughter, , tele phone number [phone], mentioned the concern that the last time patient had a cardiac catheteriza tion, it was left radial and then she had transient ischemic attack type of symptoms and remained in [facility] for a day after being discharged from here, so mentioned that we will do a right femoral approach and we will update her after the cardiac catheterization. We will keep n.p.o. after the breakfast and a cardiac catheterization at 3 p.m. Further recommendation after the cardiac cath eterization. Thank you, Dr. Lazo, for providing us the opportunity in taking care of the patient. We started aspirin and Plavix. Maurizio Lopes MD cc:Moreno Lazo MD 305 TT: 01/23/2017 10:18:41 Confirmation # [id number] Dictation # [id number] en
--- NOTE | 2017-01-23 10:24 | PN ---
DATE: 01/23/2017 SUBJECTIVE: The patient has no complaints of any chest pain, no shortness of breath, no headaches __ __. PHYSICAL EXAMINATION: VITAL SIGNS: Temperature 98, pulse is 61, blood pressure 152/76, respirations 18. GENERAL: The patient comfortable, in no acute distress. HEENT: Anicteric sclerae. Moist mucosa. NECK: No JVD or adenopathy. CARDIAC: S1/S2. No murmurs. No rubs. Regular. RESPIRATORY: Clear to auscultation bilaterally. No wheezes, rales, or rhonchi. Good air entry. ABDOMEN: Bowel sounds are positive, soft, nontender, and nondistended. EXTREMITIES: No edema. Has 1+ pulses. ASSESSMENT: 1. Chest pain with positive stress test. 2. Atrial fibrillation, on Coumadin. 3. Upper respiratory tract infection. 4. Tricuspid regurgitation. 5. Pulmonary hypertension. 6. Nephrolithiasis. 7. Hypertension. 8. Dyslipidemia. PLAN: The patient is currently comfortable. She is on Cardizem. She is going to continue on losart an. The patient is on Plavix. Was given vitamin K yesterday for cardiac catheterization today. I d id speak to the patient's daughter yesterday to give her an update. I have offered the patient to go to rehab, but she is not willing to go to rehab and prefers to go home. Moreno Lazo MD cc: [id number] TT: 01/23/2017 08:50:42 Confirmation # [id number] Dictation # [id number] mn
[2017-01-23] MEDS: Nystatin 100,000 Units/gm Topical Pow(15 gm) TOP SCH ×2 (10:55→18:53)
[2017-01-23] MEDS ORDERED: Lidocaine 2% Inj (20ml) ONE (14:23)
[2017-01-23] MEDS ORDERED: Iodixanol 320 MG/ML 200 ML BOTTLE IV ONE (14:24)
[2017-01-23] MEDS ORDERED: Iodixanol 320 MG/ML 100 ML BOTTLE IV ONE (14:24)
[2017-01-23] MEDS ORDERED: Iohexol 350mgl/ml 50 ML ONE (14:24)
[2017-01-23] MEDS ORDERED: Midazolam 2 MG/2 ML VIAL ONE (14:36)
[2017-01-23] MEDS ORDERED: Sodium Chloride 0.9% 1,000 ML IV SCH (15:45)
--- NOTE | 2017-01-23 16:56 | CARD ---
APPROVED REPORT Procedure(s) performed: Left Heart Catheterization HISTORY The patient is a 82 year-old female with a history of : most recent EF: 61%. (EF Method: RADIONUCLIDE), previous diagnostic cath, previous PCI (The PCI date was 08/17/1998), hypertension , dyslipidemia , Hx of PTCA in 1998 and 2011 admitted with Unstable angina and abnormal stress test, Hx of Ch. Afib. INDICATION The indication(s) include : positive stress test, unstable angina , atrial fibrillation, dyspnea. CASE TECHNIQUE The patient was brought electively to the Cardiac Catheterization Laboratory in a fasting state and was prepped and draped in a sterile manner. The right femoral groin was infiltrated with 2% Lidocaine subcutaneous anesthesia. A 6 Fr x 11 cm Fara sheath was inserted into the right femoral artery without difficulty. Coronary angiography was performed using coronary diagnostic catheters. The left coronary system was accessed and visualized with a Diagnostic ,6 Fr JL 4 catheter. The right coronary system was accessed and visualized with a Diagnostic ,6 Fr JR 4 catheter. The left ventricle was accessed and visualized with a 6 Fr Pigtail catheter. Left ventricular/Aortic Valve gradient assessed on pullback. Left ventriculogram was performed in JESUS projection. Pre-demployment femoral angiogram was performed . Closure device was deployed with a 6 Fr Angio-Seal without any complications. The patient tolerated the procedure well and there were no complications associated with the procedure. Vessel Analysis The patient's coronary anatomy is left dominant. The left main coronary artery is a size vessel . Does not exist, two separate ostium for LAd and Circumflex The left anterior descending artery is a medium size vessel with diffuse calcification noted throughout this vessel and without significant stenosis. patent stent noted in mid LAD The first diagonal branch is a medium size vessel with diffuse calcification noted throughout this vessel and without significant stenosis. The circumflex artery is a large size vessel with diffuse calcification noted throughout this vessel and without significant stenosis. There is a 55% stenosis in the distal segment. The first obtuse marginal branch is a large size vessel with diffuse calcification noted throughout this vessel and without significant stenosis. The second obtuse marginal branch is a small size vessel with diffuse calcification noted throughout this vessel and without significant stenosis. The third obtuse marginal branch is a large size vessel with diffuse calcification noted throughout this vessel and without significant stenosis. The left posterior descending artery is a medium size vessel with diffuse calcification noted throughout this vessel and without significant stenosis. The right coronary artery is a small size vessel without significant stenosis. Left Ventricle The left ventricle is normal in size with normal contractility. There was no cardiomyopathy. The left ventricular ejection fraction is estimated to be 55-60%. The left ventricular end diastolic pressure is 18 mmHg. There was no gradient across the aortic valve upon pullback. Conclusion Non Obstructive CAD limited to Distal Cx -55% Preserved LV Fx. Ef-55%, EDP-18. Patent stents in Proximal and mid LAD. Recommendations Aggressive Medical TherapyCardiac Risk Reduction Program Weight Loss Reduction Program Resume Coumadin for A fib. CC; Narinder Arriaga/ Marielos.
[2017-01-24 05:21] VITALS: O2SAT 95
[2017-01-24 08:21] LABS: ADD MANUAL DIFF? NO
[2017-01-24 08:26] LABS: BASO # 0.02 K/mm3 (0.0-2.0); BASO % 0.3 % (0.0-3.0); EOS # 0.3 (0.0-0.7); EOS % 3.4 % (1.5-5.0); GRAN # 5.39 (1.4-6.5); GRAN % 67.7 % (50.0-68.0); HEMATOCRIT 38.3 % (36.0-48.0); LYMPH # 1.6 (1.2-3.4); LYMPH % 20.2 % (22.0-35.0); MEAN CELL VOLUME 90.1 fL (80.0-105.0); MEAN CORPUSCULAR HEMOGLOBIN 29.9 pg (25.0-35.0); MEAN CORPUSCULAR HGB CONC 33.2 g/dl (31.0-37.0); MEAN PLATELET VOLUME 10.3 fl (7.0-11.0); MONO # 0.7 (0.1-0.6); MONO % 8.4 % (1.0-6.0); PLATELET COUNT 239 10^3/uL (120.0-450.0); RED CELL DISTRIBUTION WIDTH 15.5 % (11.5-14.5)
[2017-01-24 08:52] LABS: ALB/GLOB RATIO 1.1 (1.1-1.8); ALKALINE PHOSPHATASE 124 U/L (38-133); ALT/SGPT 36 U/L (7-56); AST/SGOT 28 U/L (15-39); BILIRUBIN,TOTAL 0.9 mg/dL (0.2-1.3); BLOOD UREA NITROGEN 8 mg/dL (7-21); CALCIUM 9.9 mg/dL (8.4-10.5); CARBON DIOXIDE 24 mmol/L (21-33); CHLORIDE 105 mmol/L (95-110); GFR AFRICAN-AMERICAN > 60; GLUCOSE,RANDOM 93 mg/dL (70-110); POTASSIUM 4.1 mmol/L (3.6-5.0); SODIUM 139 mmol/L (132-148); TOTAL PROTEIN 7.4 g/dL (5.8-8.3)
[2017-01-24 10:00] LABS: INR 1.19 (0.93-1.08)
[2017-01-24] MEDS: Nystatin 100,000 Units/gm Topical Pow(15 gm) TOP SCH (10:52)
--- NOTE | 2017-01-24 11:18 | DS ---
This is an 82-year-old female who had come into the hospital with chest pain. She had a stress test done that was positive. She was taken to the lab animal technologist by Dr. Lopes. She had nonobstructing coronary disease, EF was 55%. The patient is going to be discharged home today. She is chest pain free. She has no headaches or dizziness. She does have afib and is on Coumadin. PHYSICAL EXAMINATION: VITAL SIGNS: Temperature is 98.9, pulse of 93, blood pressure 164/82, respirations 18, O2 saturation 95%. GENERAL: The patient comfortable, in no acute distress. HEENT: Anicteric sclerae. Moist mucosa. NECK: No JVD or adenopathy. CARDIAC: S1/S2. No murmurs. No rubs. Regular. RESPIRATORY: Clear to auscultation bilaterally. No wheezes, rales, or rhonchi. Good air entry. ABDOMEN: Bowel sounds are positive, soft, nontender, and nondistended. EXTREMITIES: No edema. Has 1+ pulses. ASSESSMENT: 1. Nonobstructive coronary artery disease, by catheterization. 2. Atrial fibrillation, on Coumadin. 3. Upper respiratory tract infection. 4. Tricuspid regurgitation. 5. Pulmonary hypertension. 6. Nephrolithiasis. 7. Hypertension. 8. Dyslipidemia. PLAN: The patient is on Cardizem. The patient is going to be on her Coumadin and is going to contin ue with losartan for hypertension. She is on Neurontin for neuropathy. The patient is on Tylenol p. r.n. CONDITION: Stable. ACTIVITIES: Increase as tolerated. She is going to follow up with Dr. Donohue within a week to get an INR checked. Moreno Lazo MD cc: [id number] TT: 01/24/2017 11:18:02 jn
[2017-01-24 12:09] VITALS: BP 136/64; PULSE 60; RESP 16; TEMP 98
[2017-01-24] MEDS ORDERED: Pneumococcal 23-Valent Vaccine IM ONE (13:21)
--- NOTE | 2017-01-27 13:23 | PQF CHF ---
This form is a permanent part of the medical record Dr. Lopes, Clarification of your documentation is requested to better reflect the severity of illness and intensity of treatment of your patient. Indicators present: As per your consult indication of history of CHF as secondary dx. Please specify the severity and type of CHF and indicate below the choices in the physician's response. Thank you. [x] Diagnosis of CHF and/or history of CHF [x] BNP > 200 [] Imaging Finding of Pulmonary Edema /Pleural Effusions [] Fluid/Volume Overload [] Pitting edema [] Ejection Fraction < 40% (Indicative of Systolic Heart Failure) [] Ejection Fraction > 40% (Indicative of Diastolic Heart Failure) [] Dyspnea / Orthopenea / Paroxysmal Nocturnal Dyspnea [] Other: Location in the medical record that reflects the above clinical findings: [] Treatment Provided: [] PHYSICIAN'S RESPONSE Based on your medical judgment of the clinical indicators outlined above, are you treating this patient for a known or suspected: [] Acute CHF [] Systolic [] Diastolic [] Combined [] Chronic CHF [] Systolic [] Diastolic [] Combined [] Acute on Chronic CHF []Systolic [] Diastolic [] Combined [] CHF due hypertension [] Acute systolic []Chronic systolic [] Acute/ chronic systolic [] Other, please indicate: [] [] If Unable to Determine, please check the box, sign and date. Present On Admission (POA) Indicator: [] Present at the time of admission [] Not present at the time of admission [] Clinically Undetermined In responding to this query, please exercise your independent professional judgment. The fact that a question is asked does not imply that any particular answer is desired or expected. Thank you for your clarification on this documentation. If you have any questions please call:[ ] * Thank you, [ ]bayron SILVAjackerman LORIE
--- NOTE | 2017-01-30 10:56 | PQF CHF ---
This form is a permanent part of the medical recorddr. Reina Lazo, Clarification of your documentation is requested to better reflect the severity of illness and intensity of treatment of your patient. Indicators present: pt was diagnosed with CAD, nonostructive. As secondary dx pt have CHF as per Dr. Lopes. Please specify the severity and type of CHF below the physician's response. Thank you. no sighn of CHF [x] Diagnosis of CHF and/or history of CHF [x] BNP > 200 [] Imaging Finding of Pulmonary Edema /Pleural Effusions [] Fluid/Volume Overload [] Pitting edema [] Ejection Fraction < 40% (Indicative of Systolic Heart Failure) [] Ejection Fraction > 40% (Indicative of Diastolic Heart Failure) [] Dyspnea / Orthopenea / Paroxysmal Nocturnal Dyspnea [] Other: Location in the medical record that reflects the above clinical findings: [] EF % was 55% as per D/S Treatment Provided: [] PHYSICIAN'S RESPONSE Based on your medical judgment of the clinical indicators outlined above, are you treating this patient for a known or suspected: [] Acute CHF [] Systolic [] Diastolic [] Combined [] Chronic CHF [] Systolic [] Diastolic [] Combined [] Acute on Chronic CHF []Systolic [] Diastolic [] Combined [] CHF due hypertension [] Acute systolic []Chronic systolic [] Acute/ chronic systolic [] Other, please indicate: [] [] If Unable to Determine, please check the box, sign and date. Present On Admission (POA) Indicator: [] Present at the time of admission [] Not present at the time of admission [] Clinically Undetermined In responding to this query, please exercise your independent professional judgment. The fact that a question is asked does not imply that any particular answer is desired or expected. Thank you for your clarification on this documentation. If you have any questions please call:[ ] * Thank you, [ ]ELISEO SILVAconstruction code administrator LORIE
== END 2017-01-24 14:47 | disposition home or self-care (01) | DRG 287 ==
LOC: ED 08:24 → ERH 09:31 → 2RSO 13:39 → OBSVTOIN 01-22 06:23
PROVIDERS: ADMIT Internal Medicine Nephrology; ATTEND Internal Medicine Nephrology
PROC: 4A023N7 Measurement of Cardiac Sampling and Pressure, Left Heart, Percutaneous Approach (ICD-10-PCS; principal; 2017-01-23)
PROC: B2051ZZ Plain Radiography of Left Heart using Low Osmolar Contrast (ICD-10-PCS; 2017-01-23)
PROC: B2011ZZ Plain Radiography of Multiple Coronary Arteries using Low Osmolar Contrast (ICD-10-PCS; 2017-01-23)
DX: I25.110 Atherosclerotic heart disease of native coronary artery with unstable angina pectoris (principal); I27.2 Other secondary pulmonary hypertension; I48.2 Chronic atrial fibrillation; G62.9 Polyneuropathy, unspecified; I10 Essential (primary) hypertension; I07.1 Rheumatic tricuspid insufficiency; N20.0 Calculus of kidney; E78.5 Hyperlipidemia, unspecified; I45.10 Unspecified right bundle-branch block; J06.9 Acute upper respiratory infection, unspecified; Z79.01 Long term (current) use of anticoagulants; Z95.5 Presence of coronary angioplasty implant and graft

== ENCOUNTER 2017-04-04 12:20 | Inpatient (IN) | payer MEDICARE ==
[2017-04-04 12:31] VITALS: BMI 29.7
--- NOTE | 2017-04-04 12:42 | ED PDOC ---
Arrival/HPI - General Time Seen by Provider: 04/04/17 12:36 Historian: Patient - History of Present Illness Narrative History of Present Illness (Text): 04/04/17 12:45 A 82 year old female, whose past medical history includes CAD with 2 stents, TIA , pneumonia, and history afib on coumadin, presents to ED after syncopal episode two weeks ago where she became weak and "passed out" and falling. She states [facility] ambulance was called but she did not wish to come to hospital. Since that initial event she has felt weak and tired with any exertion. She denies palpitations. Denies chest pain, denies shortness of breath. She states two days ago she became dizzy again and passed out. states he was in other room and found her on floor but awake, no seizure activity reported. She reportedly was immediately responsive and again was evaluated by [place] but did not wish to come to the hospital. Patient presents with persistent weakness and dizziness today. Denies chest pain currently. Denies abodminal pain. Denies bloody urine or stool. Time/Duration: < week (2 weeks ago ) Symptom Course: Unchanged Activities at Onset: Light Context: Home Past Medical History - Provider Review Nursing Documentation Reviewed: Yes - Infectious Disease Hx of Infectious Diseases: None - Cardiac Hx Cardiac Disorders: Yes Hx Congestive Heart Failure: Yes Hx Hypertension: Yes Other/Comment: cardiac stent - Pulmonary Hx Chronic Obstructive Pulmonary Disease (COPD): No - Neurological HX Cerebrovascular Accident: No - HEENT Hx HEENT Disorder: No - Renal Hx Renal Disorder: No - Endocrine/Metabolic Hx Diabetes Mellitus Type 1: No Hx Diabetes Mellitus Type 2: No Hx Hypothyroidism: No - Hematological/Oncological Hx Blood Transfusions: No Hx Blood Transfusion Reaction: No - Integumentary Hx Dermatological Disorder: Yes Other/Comment: Shingles on left side of neck on 04/14/16. 12-15-16 LEFT HIP WITH IRREGULARLY SHAPED STAGE 2 PRESSURE ULCER .MEASURES 1.5 X 2.5 CM. RED AREA. MILD SEROUS DRAINAGE.01-20-17 HEALING .FLAT REDDENED AREA.DRY.3 X 4 CM . BILATERAL LE DARK TO LIGHT BROWNISH SKIN. DISCOLORATION.EDEMA +1.PITTING - Musculoskeletal/Rheumatological Hx Falls: Yes - Gastrointestinal Hx Gastrointestinal Disorders: No - Genitourinary/Gynecological Hx Genitourinary Disorders: No - Psychiatric Hx Psychophysiologic Disorder: No Hx Emotional Abuse: No Hx Physical Abuse: No Hx Substance Use: No - Surgical History Hx Coronary Stent: Yes (X2) Other/Comment: CARDIAC STENT X 2 - Anesthesia Hx Anesthesia Reactions: No Hx Malignant Hyperthermia: No - Suicidal Assessment Feels Threatened In Home Enviroment: No Family/Social History - Physician Review Nursing Documentation Reviewed: Yes Family/Social History: No Known Family HX Smoking Status: Never Smoked Hx Alcohol Use: No Hx Substance Use: No Allergies/Home Meds Allergies/Adverse Reactions: Allergies No Known Allergies Allergy (Verified 01/20/17 18:33) Home Medications: Home Meds Medication Instructions Recorded Confirmed Gabapentin [Neurontin] 300 mg PO TID 04/14/14 04/04/17 Losartan [Cozaar] 12.5 mg PO DAILY 01/20/17 04/04/17 Pravastatin Sodium [Pravachol] 10 mg PO DAILY 01/20/17 04/04/17 Warfarin [Coumadin] 2 mg PO DAILY 01/20/17 04/04/17 Nitrofurantoin Monohyd/M-Cryst 100 mg PO BID 04/04/17 04/04/17 [Nitrofurantoin Monohydrate/Macrocrystals] Review of Systems - Review of Systems Constitutional: absent: Fevers Eyes: absent: Vision Changes ENT: absent: Hearing Changes Respiratory: absent: SOB, Cough Cardiovascular: absent: Chest Pain Gastrointestinal: absent: Abdominal Pain, Nausea, Vomiting Genitourinary Female: Urine Output Changes Musculoskeletal: Back Pain, Neck Pain Skin: Normal Neurological: Dizziness. absent: Headache Physical Exam - Physical Exam Narrative Physical Exam (Text): 04/04/17 12:40 Head: Atraumatic. Normocephalic. No scalp laceration. No bony deformities. Eyes: PERRL. EOMI. Conjunctivae are not pale. ENT: Mucous membranes are moist and intact. Oropharynx is clear and symmetric. No facial bony tenderness. Neck: Diffuse paraspinal tenderness. Supple. Full ROM. No JVD. No lymphadenopathy. Cardiovascular: Irregulary irregular rhythm. Systolic murmur. Tachycardic. No murmurs, rubs, or gallops. Distal pulses are 2+ and symmetric. Pulmonary/Chest: Dimished breath sounds at the bases. No evidence of respiratory distress. No wheezing, rales or rhonchi. Abdominal: Soft and non-distended. There is no tenderness. No rebound, guarding, or rigidity. No organomegaly. Good bowel sounds. Back: Ecchymosis to the right upper back - old. Lower lumbar paraspinal tenderness. Extremities: No edema. No cyanosis. No clubbing. Full range of motion in all extremities. No calf tenderness. Skin: Skin is pale. Skin is warm and dry. No petechiae. No purpura. Neurological: Alert, awake, and oriented to person, place, time, and situation. Normal speech. No focal weakness. No facial droop. Motor and sensory exam intact Psychiatric: Good eye contact. Normal interaction, affect, and behavior. Vital Signs Reviewed: Yes Vital Signs Temp Pulse Resp BP Pulse Ox 04/04/17 20:13 83 16 158/85 H 96 04/04/17 20:09 83 22 158/100 H 97 04/04/17 19:27 78 18 194/96 H 94 L 04/04/17 19:03 73 18 135/71 96 04/04/17 17:21 75 18 138/79 96 04/04/17 15:14 79 18 142/86 95 04/04/17 13:45 87 18 145/92 H 95 04/04/17 12:30 98.0 F 100 H 18 149/105 H 95 Temperature: Afebrile Blood Pressure: Hypertensive Pulse: Irregular Respiratory Rate: Normal Appearance: Positive for: Well-Appearing, Non-Toxic, Comfortable Pain Distress: Mild Mental Status: Positive for: Alert and Oriented X 3 Medical Decision Making ED Course and Treatment: 04/04/17 12:40 Impression: A 82 year old female with history of syncopal episodes. Differential Diagnosis included but are not limited to: CHF vs. A-Fib vs. Anemia vs. Dehydration Plan: -- Cervical Spine CT -- Head CT -- Chest X-ray -- EKG -- Labs -- Urinalysis -- Reassess and disposition Prior Visits: Notes and results from previous visits were reviewed. The patient was last seen in the emergency department on 01/30/17 for chest pain. The patient was hospitalized. Progress Notes: Patient on current exam has no focal neurologic deficits. She cannot recollect fully the "falls" she has had, but reports likely LOC and since initial episode has been progressively weaker. She has found to have neck pain but no respiratory distress, no neuro deficits. Chest X-ray [employer] : Teodoro De Jesus MD Report Date : 04/04/2017 15:09:38 HISTORY: sob COMPARISON: 01/20/2017 FINDINGS: LUNGS:No active pulmonary disease. PLEURA:No significant pleural effusion identified, no pneumothorax apparent. CARDIOVASCULAR:Normal. OSSEOUS STRUCTURES:No significant abnormalities. VISUALIZED UPPER ABDOMEN:Normal. OTHER FINDINGS:None. IMPRESSION:No active disease. CT Cervical Spine without contrast [employer] : Teodoro De Jesus MD Report Date : 04/04/2017 14:57:29 HISTORY:Trauma COMPARISON:None available. FINDINGS: VERTEBRAE:No fracture. Normal alignment. No destructive bony lesion. DISCS/SPINAL CANAL/NEURAL FORAMINA:Narrowing of multiple intervertebral disc spaces including C3-4, 4-5 and C5-6. Findings consistent with degenerative disc disease at these levels. PARASPINAL SOFT TISSUES:Unremarkable. OTHER FINDINGS:None. IMPRESSION: No evidence of fracture or dislocation. Multilevel degenerative disc disease. CT HEAD WITHOUT CONTRAST. [employer] : Teodoro De Jesus MD Report Date : 04/04/2017 14:17:50 HISTORY:syncope COMPARISON: 12/15/2016 FINDINGS: HEMORRHAGE:No intracranial hemorrhage. BRAIN:Mild age-appropriate cerebral atrophy. No evidence of acute infarct. VENTRICLES:Unremarkable. No hydrocephalus. CALVARIUM:Unremarkable. PARANASAL SINUSES:Unremarkable as visualized. No significant inflammatory changes. MASTOID AIR CELLS:Unremarkable as visualized. No inflammatory changes. OTHER FINDINGS:None. IMPRESSION: Unremarkable examination. Patient is in atrial fibrillation, rate controlled on re-evaluation. BP stable. With serial exams in ed remains comfortable with no chest pain or abdominal pain , neuro intact. INR elevated, no active bleeding noted. Concern for multiple falls and syncope, especially taking Coumadin. Ddx also includes arrhythmia, CAD, no history of facial droop or slurred speech or weakness described and with serial neuro exams in ED. I have discussed labs, imaging studies and treatment plan with patient and Melita, her daughter via phone. Patient admitted and case accepted by Dr. Arita. 04/05/17 22:02 - Lab Interpretations Microbiology Results: Microbiology Results 04/04/17 14:10 Blood Blood Culture - Preliminary NO GROWTH AFTER 24 HOURS 04/04/17 13:42 Blood Blood Culture - Preliminary NO GROWTH AFTER 24 HOURS Lab Results: 04/04/17 13:42 04/04/17 13:42 Lab Results 04/04/17 14:10: Blood Type A POSITIVE, Antibody Screen Negative, BBK History Checked Patient has bt 04/04/17 13:42: Sodium 142, Chloride 106, Potassium 4.1, Carbon Dioxide 25, Anion Gap 15, BUN 15, Creatinine 0.7, Est GFR ( Amer) > 60, Est GFR (Non- Af Amer) > 60, Random Glucose 110, Calcium 10.0, Total Bilirubin 1.4 H, AST 37, ALT 30, Alkaline Phosphatase 106, Lactate Dehydrogenase 795 H, Total Creatine Kinase 545 H, CK-MB (CK-2) 1.5, CK-MB (CK-2) % Cancelled, Troponin I < 0.01, NT- Pro-B Natriuret Pep 1500 H, Total Protein 7.9, Albumin 4.3, Globulin 3.6, Albumin/Globulin Ratio 1.2 04/04/17 13:42: pO2 47, VBG pH 7.40, VBG pCO2 45.0, VBG HCO3 27.9, VBG Total CO2 29.3 H, VBG O2 Sat (Calc) 87.1 H, VBG Base Excess 2.5 H, VBG Potassium 4.1, Sodium 140.0, Chloride 107.0, Glucose 114 H, Lactate 1.5, FiO2 21.0, Venous Blood Potassium 4.1 04/04/17 13:42: PT 56.2 H*, INR 5.20 H*, APTT 52.5 H 04/04/17 13:42: WBC 8.6, RBC 4.20, Hgb 12.7, Hct 38.4, MCV 91.4, MCH 30.2, MCHC 33.1, RDW 15.9 H, Plt Count 171, MPV 10.6, Gran % 74.9 H, Lymph % (Auto) 12.4 L , [place] % (Auto) 10.4 H, Eos % (Auto) 2.1, Baso % (Auto) 0.2, Gran # 6.41, Lymph # 1.1 L, Tr[place]ble # 0.9 H, Eos # 0.2, Baso # 0.02 - RAD Interpretation Radiology Orders: 04/04/17 13:05 HEAD W/O CONTRAST [CT] Stat 04/04/17 13:12 CERVICAL SPINE W/O CONTRAST [CT] Stat 04/04/17 14:32 CHEST PORTABLE [RAD] Stat [employer]: Radiologist - EKG Interpretation EKG Interpretation (Text): 04/04/17 23:03 EKG atrial fibrillation rate of 100 with pvc Interpreted by ED Physician: Yes Type: 12 lead EKG - Medication Orders Current Medication Orders: Acetaminophen (Tylenol 325mg Tab) 650 mg PO Q4H PRN PRN Reason: Pain, moderate (4-7) Last Admin: 04/05/17 16:39 Dose: 650 mg Amlodipine Besylate (Norvasc) 10 mg PO DAILY JAMES Aspirin (Aspirin Chewable) 81 mg PO DAILY JAMES Last Admin: 04/05/17 09:36 Dose: 81 mg Atorvastatin Calcium (Lipitor) 10 mg PO DIN [facility] Last Admin: 04/05/17 17:23 Dose: 10 mg Gabapentin (Neurontin) 300 mg PO TID JAMES PRN Reason: Protocol Last Admin: 04/05/17 18:45 Dose: 300 mg Re-Assess: Reassess Psych Meds Document 04/05/17 19:45 [facility] (Rec: 04/05/17 19:57 [facility] [id number]) Reassess Psych Med Effective Discontinued Medications Amlodipine Besylate (Norvasc) 10 mg PO STAT STA Stop: 04/05/17 17:08 Last Admin: 04/05/17 17:23 Dose: 10 mg Sodium Chloride (Sodium Chloride 0.9%) 500 mls @ 1,000 mls/hr IV .Q30M STA Stop: 04/04/17 14:32 Last Admin: 04/04/17 14:33 Dose: 1,000 mls/hr Losartan Potassium (Cozaar) 12.5 mg PO DAILY JAMES Last Admin: 04/05/17 09:36 Dose: 12.5 mg Losartan Potassium (Cozaar) 12.5 mg PO Stat STA Stop: 04/05/17 01:34 Last Admin: 04/05/17 01:44 Dose: 12.5 mg Losartan Potassium (Cozaar) 100 mg PO STAT STA Stop: 04/05/17 19:17 Last Admin: 04/05/17 19:59 Dose: 100 mg - PA / AUTOMOTIVE TECHNOLOGY INSTRUCTOR / Resident Statement MD/DO has reviewed & agrees with the documentation as recorded. - Scribe Statement The provider has reviewed the documentation as recorded by the Marlon Irvin Provider Scribe Attestation: All medical record entries made by the Scribe were at my direction and personally dictated by me. I have reviewed the chart and agree that the record accurately reflects my personal performance of the history, physical exam, medical decision making, and the department course for this patient. I have also personally directed, reviewed, and agree with the discharge instructions and disposition. Disposition/Present on Arrival - Present on Arrival Any Indicators Present on Arrival: No History of DVT/PE: No History of Uncontrolled Diabetes: No Urinary Catheter: No History Surgical Site Infection Following: None - Disposition Have Diagnosis and Disposition been Completed?: Yes Diagnosis: Syncope, Cervical strain, Back contusion, Elevated INR, Atrial fibrillation Disposition: HOSPITALIZED Disposition Time: 14:25 Patient Plan: Admission, Telemetry Patient Problems: Current Active Problems Problem Status Onset Atrial fibrillation Acute Back contusion Acute Cervical strain Acute Elevated INR Acute Syncope Acute Condition: FAIR
[2017-04-04 13:48] LABS: VENOUS BLOOD GAS BASE EXCESS 2.5 mmol/L (0.0-2.0)
[2017-04-04 13:52] LABS: BASO # 0.02 K/mm3 (0.0-2.0); BASO % 0.2 % (0.0-3.0); EOS # 0.2 (0.0-0.7); EOS % 2.1 % (1.5-5.0); GRAN # 6.41 (1.4-6.5); GRAN % 74.9 % (50.0-68.0); HEMATOCRIT 38.4 % (36.0-48.0); LYMPH # 1.1 (1.2-3.4); LYMPH % 12.4 % (22.0-35.0); MEAN CELL VOLUME 91.4 fl (80.0-105.0); MEAN CORPUSCULAR HEMOGLOBIN 30.2 pg (25.0-35.0); MEAN CORPUSCULAR HGB CONC 33.1 g/dl (31.0-37.0); MEAN PLATELET VOLUME 10.6 fl (7.0-11.0); MONO # 0.9 (0.1-0.6); MONO % 10.4 % (1.0-6.0); RED CELL DISTRIBUTION WIDTH 15.9 % (11.5-14.5); WHITE BLOOD COUNT 8.6 10^3/ul (4.5-11.0)
[2017-04-04 14:01] LABS: ALB/GLOB RATIO 1.2 (1.1-1.8); ALKALINE PHOSPHATASE 106 U/L (38-133); ALT/SGPT 30 U/L (7-56); AST/SGOT 37 U/L (15-39); BILIRUBIN,TOTAL 1.4 mg/dL (0.2-1.3); BLOOD UREA NITROGEN 15 mg/dL (7-21); CARBON DIOXIDE 25 mmol/L (21-33); CHLORIDE 106 mmol/L (98-107); GFR AFRICAN-AMERICAN > 60; GLUCOSE,RANDOM 110 mg/dL (70-110); POTASSIUM 4.1 mmol/L (3.6-5.0); SODIUM 142 mmol/L (132-148); TOTAL PROTEIN 7.9 g/dL (5.8-8.3)
[2017-04-04] MEDS ORDERED: Sodium Chloride 0.9% 500 ML IV STA (14:03)
[2017-04-04 14:04] LABS: PARTIAL THROMBOPLASTIN TIME 52.5 Seconds (23.7-30.8)
[2017-04-04 14:06] LABS: INR 5.2 (0.93-1.08)
[2017-04-04 14:18] LABS: TROPONIN I < 0.01 ng/mL
--- NOTE | 2017-04-04 14:19 | CT ---
PROCEDURE: CT HEAD WITHOUT CONTRAST. HISTORY: syncope COMPARISON: 12/15/2016 TECHNIQUE: Axial computed tomography images were obtained through the head/brain without intravenous contrast. Radiation dose: Total exam DLP = 790.15 mGy-cm. This CT exam was performed using one or more of the following dose reduction techniques: Automated exposure control, adjustment of the mA and/or kV according to patient size, and/or use of iterative reconstruction technique. FINDINGS: HEMORRHAGE: No intracranial hemorrhage. BRAIN: Mild age-appropriate cerebral atrophy. No evidence of acute infarct. VENTRICLES: Unremarkable. No hydrocephalus. CALVARIUM: Unremarkable. PARANASAL SINUSES: Unremarkable as visualized. No significant inflammatory changes. MASTOID AIR CELLS: Unremarkable as visualized. No inflammatory changes. OTHER FINDINGS: None. IMPRESSION: Unremarkable examination.
--- NOTE | 2017-04-04 14:59 | CT ---
PROCEDURE: CT Cervical Spine without contrast HISTORY: Trauma COMPARISON: None available. TECHNIQUE: Axial computed tomography images were obtained of the cervical spine without the use of intravenous contrast. Coronal and sagittal reformatted images were created and reviewed. Radiation dose: Total exam DLP = 592.58 mGy-cm. This CT exam was performed using one or more of the following dose reduction techniques: Automated exposure control, adjustment of the mA and/or kV according to patient size, and/or use of iterative reconstruction technique. FINDINGS: VERTEBRAE: No fracture. Normal alignment. No destructive bony lesion. DISCS/SPINAL CANAL/NEURAL FORAMINA: Narrowing of multiple intervertebral disc spaces including C3-4, 4-5 and C5-6. Findings consistent with degenerative disc disease at these levels. PARASPINAL SOFT TISSUES: Unremarkable. OTHER FINDINGS: None. IMPRESSION: No evidence of fracture or dislocation. Multilevel degenerative disc disease.
--- NOTE | 2017-04-04 15:11 | RAD ---
HISTORY: sob COMPARISON: 01/20/2017 FINDINGS: LUNGS: No active pulmonary disease. PLEURA: No significant pleural effusion identified, no pneumothorax apparent. CARDIOVASCULAR: Normal. OSSEOUS STRUCTURES: No significant abnormalities. VISUALIZED UPPER ABDOMEN: Normal. OTHER FINDINGS: None. IMPRESSION: No active disease.
[2017-04-04 20:11] LABS: PH,URINE 6.5 (4.7-8.0); URINE BILIRUBIN MODERATE (NEGATIVE); URINE BLOOD LARGE (NEGATIVE); URINE GLUCOSE (UA) NEGATIVE (NEGATIVE); URINE KETONE TRACE mg/dL (NEGATIVE); URINE LEUKOCYTE ESTERASE LARGE Leu/uL (NEGATIVE); URINE PROTEIN 100 mg/dL (<30 mg/dL)
[2017-04-04 20:25] LABS: URINE APPEARANCE TURBID (CLEAR); URINE COLOR RED (YELLOW)
[2017-04-04 20:26] LABS: URINE BACTERIA MANY (NEG); URINE RBC TNTC /hpf (0-2); URINE WBC TNTC /hpf (0-6)
[2017-04-05 07:47] LABS: ALB/GLOB RATIO 1.1 (1.1-1.8); ALKALINE PHOSPHATASE 85 U/L (38-133); AST/SGOT 25 U/L (15-39); BILIRUBIN,TOTAL 1.2 mg/dL (0.2-1.3); BLOOD UREA NITROGEN 10 mg/dL (7-21); CALCIUM 9.5 mg/dL (8.4-10.5); CARBON DIOXIDE 27 mmol/L (21-33); GFR AFRICAN-AMERICAN > 60; GLUCOSE,RANDOM 85 mg/dL (70-110); TOTAL PROTEIN 6.8 g/dL (5.8-8.3)
[2017-04-05 07:50] LABS: ALT/SGPT 30 U/L (7-56); CHLORIDE 105 mmol/L (98-107); POTASSIUM 4.2 mmol/L (3.6-5.0); SODIUM 139 mmol/L (132-148)
[2017-04-05 07:55] LABS: INR 4.33 (0.93-1.08)
[2017-04-05 08:08] LABS: BASO # 0.02 K/mm3 (0.0-2.0); BASO % 0.3 % (0.0-3.0); EOS # 0.3 (0.0-0.7); EOS % 3.6 % (1.5-5.0); GRAN # 4.75 (1.4-6.5); GRAN % 65.8 % (50.0-68.0); HEMATOCRIT 35.5 % (36.0-48.0); LYMPH # 1.4 (1.2-3.4); LYMPH % 19.3 % (22.0-35.0); MEAN CELL VOLUME 91.5 fl (80.0-105.0); MEAN CORPUSCULAR HEMOGLOBIN 29.9 pg (25.0-35.0); MEAN CORPUSCULAR HGB CONC 32.7 g/dl (31.0-37.0); MEAN PLATELET VOLUME 11.3 fl (7.0-11.0); MONO # 0.8 (0.1-0.6); RED CELL DISTRIBUTION WIDTH 15.9 % (11.5-14.5); WHITE BLOOD COUNT 7.2 10^3/ul (4.5-11.0)
--- NOTE | 2017-04-05 11:01 | CARD ---
APPROVED REPORT EKG Measurement Heart [id number] <Conclusion> Atrial fibrillation with premature ventricular or aberrantly conducted complexes Rightward axis Septal infarct, age undetermined Abnormal ECG
--- NOTE | 2017-04-05 15:31 | US ---
PROCEDURE: Bilateral carotid artery duplex US HISTORY: Carotid stenosis PHYSICIAN(S): Teodoro Iyer MD. TECHNIQUE: Duplex sonography and color-flow Doppler were used to evaluate the carotid bifurcations and limited segments of the vertebral arteries bilaterally. FINDINGS: There is mild to moderate smooth echogentic plaque noted at the carotid bifurcations bilaterally. The peak systolic velocity in the proximal right internal carotid artery is 104 cm/sec. This corresponds to a 20 to 39% proximal right ICA stenosis. Normal systolic velocities are noted in the proximal right external carotid artery. There is antegrade flow in the right vertebral artery. The peak systolic velocity in the proximal left internal carotid artery is 60 cm/sec. This corresponds to a 20 to 39% proximal left ICA stenosis. Normal systolic velocities are noted in the proximal left external carotid artery. There is antegrade flow in the left vertebral artery. IMPRESSION: 1. Bilateral 20-39% proximal ICA stenoses. 2. Antegrade flow in both vertebral arteries.
--- NOTE | 2017-04-05 18:35 | PN ---
SUBJECTIVE: The patient is an 82 years old seen and examined. She states she had two falls, since then her neck and lower back is hurting, difficulty walking. I offered her to go home, but she stayed with this aches and pain and inability to walk, "I cannot go anywhere." PHYSICAL EXAMINATION: VITAL SIGNS: Temperature 100, pulse 89, respirations 18, blood pressure 177/93. LUNGS: Bilateral fair airflow. No rhonchi or crackles. HEART: S1 and S2 audible. ABDOMEN: Soft and nontender. No rebound. No guarding. NEUROLOGICALLY: She is awake and alert, able to communicate, moves all extremities, has generalized weakness and complained of back pain. LABORATORY EXAMINATION: WBC is 7.2, hemoglobin 11.6, hematocrit 35, platelet of 176, PT 46.8. INR 4.33. Chemistry: Sodium 139, potassium 4.2, chloride 105, CO2 of 27, BUN 10, creatinine 0.5. Blood sugar of 85. The urine cultures are pending. ASSESSMENT: 1. Status post multiple falls. 2. Generalized weakness. 3. Acute on chronic cervical and lumbosacral spasm. 4. Chronic atrial fibrillation. 5. Supratherapeutic PT/INR. 6. History of postherpetic neuralgia. 7. Pulmonary hypertension. 8. Hyperlipidemia. PLAN: We will get physical therapy evaluation. I will continue her on aspirin and losartan. Continue her gabapentin. Encourage ambulation, might be a candidate for TCU. Keli Arita MD
--- NOTE | 2017-04-06 07:35 | HP ---
HISTORY OF PRESENT ILLNESS: The patient is 82 years old, came to the emergency room because of worsening back pain, increasing weakness, difficulty walking. The patient has multiple admission with almost similar complaint. The patient states she fell almost 2 weeks ago, but she did not feel that bad, so never came to the ER for any help, however, she had a fall again 2 days ago. Since then, she has been having more difficulty ambulating. She feels dizzy. Denies any fever or chills. No history of nausea or vomiting. No history of rectal bleeding. No hemoptysis or hematemesis. PAST MEDICAL HISTORY: Significant for: 1. Coronary artery disease, status post angioplasty. 2. History of TIA. 3. History of renal insufficiency. 4. The patient was recently admitted with almost similar complaint in January. She also had a history of chronic atrial fibrillation. 5. Tricuspid regurgitation. 6. Pulmonary hypertension. 7. Hyperlipidemia. 8. History of nephrolithiasis. 9. History of postherpetic neuralgia. ALLERGIES: SHE IS NOT ALLERGIC TO ANY MEDICATION. FAMILY HISTORY: Not significant. SOCIAL HISTORY: She is , lives with her . Her daughter is around, very supportive. MEDICATIONS AT HOME: She on aspirin 81 daily, Coumadin 2 mg daily, Pravastatin 10 mg daily, potassium 20 mEq daily, losartan 12.5 daily, gabapentin 300 three times a day for postherpetic neuralgia. REVIEW OF SYSTEMS: Significant for generalized weakness, chronic back pain. PHYSICAL EXAMINATION: GENERAL: She is awake and alert. Able to communicate. VITAL SIGNS: She is afebrile. Pulse 87, respirations 18, blood pressure 142/86. HEART: S1 and S2 audible. Irregular rate, controlled. LUNGS: Bilateral fair airflow. No rhonchi or crackles. ABDOMEN: Soft, nontender. No rebound. No guarding. EXTREMITIES: Complained of back pain. Bilateral leg, no edema. Able to move all extremities. Has difficulty getting out of bed and walk. NEUROLOGIC: Neurologically, she is awake and alert, able to communicate. LABORATORY DATA: WBC 8.6, hemoglobin 12.7, hematocrit 38.4, platelet of 171. PT 56.2, INR 5.20. Chemistry; sodium 142, potassium 4.1, chloride 106, CO2 of 25, BUN 15, creatinine 0.7, blood sugar of 110. Total bili 1.4. ALT 8795. CPK 545. BNP 1500. She had x-ray of chest done that is negative. Cervical spine CT scan, no evidence of fracture or dislocation, multilevel degenerative disk disease. CT scan of the head unremarkable. IMPRESSION: 1. Status post vertical fall. 2. Acute on chronic back pain. 3. Chronic atrial fibrillation. 4. Supratherapeutic PT/INR. 5. Chronic atrial fibrillation. 6. Hypertension. 7. Hyperlipidemia. PLAN: We will place the patient in observation. We will hold her Coumadin. Resume her usual medication. Follow cardiac enzyme. We will reevaluate the patient Keli Arita MD
[2017-04-06 09:48] LABS: INR 3.02 (0.93-1.08)
--- NOTE | 2017-04-06 11:56 | PN ---
DATE: 04/06/2017 SUBJECTIVE: The patient has no complaints of any chest pain. No shortness of breath. No headaches or dizziness. PHYSICAL EXAMINATION: VITAL SIGNS: Temperature is 98.8, pulse of 83, blood pressure 178/95, respirations 18. GENERAL: The patient is lying in bed, flat, comfortable. HEENT: No oral lesion. Anicteric sclerae. Moist mucosa. NECK: No JVD, adenopathy, or thyromegaly. CARDIOVASCULAR: S1 and S2, regular. No murmurs, rubs, or gallops. LUNGS: Clear to auscultation bilaterally. No wheeze, rales, or rhonchi. ABDOMEN: Bowel sounds are positive, soft, nontender and nondistended. EXTREMITIES: no cyanosis, clubbing or edema. LABORATORY DATA: White count of 7.2, hemoglobin 11.6. Creatinine 0.5. Ultrasound shows bilateral 20% to 39% proximal ICA stenosis. ASSESSMENT: 1. Falls. 2. Hypertension. 3. Dyslipidemia. 4. Degenerative joint disease of neck. PLAN: The patient is currently comfortable. Blood pressure is elevated. I will repeat her blood pressure. She is on losartan. She is receiving Norvasc for hypertension. She has blood cultures that have been negative. She has no signs of white count. She has temperature of 100. She denies any dysuria. I doubt that she has infection. She does have urine cultures that are pending. We will await urine culture. She is asking about physical therapy in the transitional care unit. I am not sure if she will qualify. We will await the results. We will speak to the patient's daughter to give an update on the patient's diagnoses and plan of care. Her name is Amarilis, her number is [phone]. Moreno Lazo MD
--- NOTE | 2017-04-06 13:06 | PN ---
DATE: 04/06/2017 SUBJECTIVE: The patient has no complaints of any chest pain. No shortness of breath. No headaches or dizziness. PHYSICAL EXAMINATION: VITAL SIGNS: Temperature is 98.8, pulse of 83, and blood pressure is 205/119. GENERAL: The patient is lying in bed, flat, comfortable. HEENT: No oral lesion. Anicteric sclerae. Moist mucosa. NECK: No JVD, adenopathy, or thyromegaly. CARDIOVASCULAR: S1 and S2, regular. No murmurs, rubs, or gallops. LUNGS: Clear to auscultation bilaterally. No wheeze, rales, or rhonchi. ABDOMEN: Bowel sounds are positive, soft, nontender and nondistended. EXTREMITIES: no cyanosis, clubbing or edema. LABORATORY DATA: Creatinine is 0.5. DIAGNOSTIC DATA: Carotid Doppler is done which shows bilateral 39% proximal ICA stenosis. ASSESSMENT: 1. Fall. 2. Chronic neck pain. 3. Atrial fibrillation, on anticoagulation. 4. Pulmonary hypertension. 5. Dyslipidemia. 6. Degenerative joint disease of neck. PLAN: The patient was on aspirin. She is going to continue on Lipitor for dyslipidemia. She is on Norvasc for her hypertension. She is on Coumadin and her INR is elevated, her Coumadin has been on hold. She is on Neurontin for neuropathy. She is on a heart healthy diet. She does not wish to go to [facility] for senior care care, she has been there previously. She states that she prefers to go to transitional care unit. I did explain to her that she may not be accepted because she needs more intervention, but she is reluctant to go anywhere else. We will see if she qualify, she will need physical therapy. Moreno Lazo MD
[2017-04-06 18:47] VITALS: RESP 20; O2SAT 94
[2017-04-07 07:43] LABS: INR 2.27 (0.93-1.08)
[2017-04-07 07:51] VITALS: TEMP 98.3
[2017-04-07 09:59] VITALS: BP 156/90; PULSE 102
--- NOTE | 2017-04-08 04:06 | DS ---
HISTORY OF PRESENT ILLNESS: The patient has no complaint of any chest pain or shortness of breath. She is doing well. She has decided to go to the transitional care unit for rehabilitation. She is having difficulty time with ambulating. PHYSICAL EXAMINATION: VITAL SIGNS: Temperature is 98.3, pulse is 72, blood pressure is 177/96, respirations 20, and oxygen saturation 94%. GENERAL: The patient is lying in bed, flat, comfortable. HEENT: No oral lesion. Anicteric sclerae. Moist mucosa. NECK: No JVD, adenopathy, or thyromegaly. CARDIOVASCULAR: S1 and S2, regular. No murmurs, rubs, or gallops. LUNGS: Clear to auscultation bilaterally. No wheeze, rales, or rhonchi. ABDOMEN: Bowel sounds are positive, soft, nontender and nondistended. EXTREMITIES: No cyanosis, clubbing or edema. ASSESSMENT: 1. Fall. 2. Hypertension. 3. Dyslipidemia. 4. Degenerative joint disease. PLAN: The patient is currently comfortable. She is on losartan, she is going to continue. She is on Norvasc for her hypertension. She had blood cultures that are negative. The patient is currently comfortable. We will need to better manage her hypertension. CONDITION: Stable. ACTIVITIES: Increase as tolerated. Follow up with the primary care doctor, Dr. Donohue, in 1 to 2 weeks after discharge. Moreno Lazo MD
== END 2017-04-07 14:05 | DRG 552 ==
LOC: ED 12:20 → ERH 15:01 → 2RNO 20:19 → 5RNO 04-05 17:06
PROVIDERS: ADMIT Internal Medicine Nephrology; ATTEND Internal Medicine Nephrology
DX: M54.9 Dorsalgia, unspecified (principal); L89.222 Pressure ulcer of left hip, stage 2; I48.2 Chronic atrial fibrillation; I27.2 Other secondary pulmonary hypertension; W19.XXXA Unspecified fall, initial encounter; I25.10 Atherosclerotic heart disease of native coronary artery without angina pectoris; I10 Essential (primary) hypertension; R26.2 Difficulty in walking, not elsewhere classified; E78.5 Hyperlipidemia, unspecified; R53.1 Weakness; G89.29 Other chronic pain; M47.812 Spondylosis without myelopathy or radiculopathy, cervical region; S16.1XXA Strain of muscle, fascia and tendon at neck level, initial encounter; S20.229A Contusion of unspecified back wall of thorax, initial encounter; Z86.73 Personal history of transient ischemic attack (TIA), and cerebral infarction without residual deficits; Z79.01 Long term (current) use of anticoagulants; Z91.81 History of falling; Z95.5 Presence of coronary angioplasty implant and graft; Y93.9 Activity, unspecified; Y92.9 Unspecified place or not applicable

== ENCOUNTER 2017-04-07 14:10 | Inpatient (IN) | payer OTHER, MEDICARE ==
[2017-04-07 15:41] VITALS: BMI 29.3
--- NOTE | 2017-04-10 04:14 | PN ---
DATE: 04/09/2017 SUBJECTIVE: The patient has no complaints of any chest pain. No shortness of breath. No headaches. Case was reviewed and I was agree with it. The patient here for rehab. PHYSICAL EXAMINATION: VITAL SIGNS: Temperature is 98.2, pulse of 86, blood pressure 131/73 and respirations 15. GENERAL: The patient is lying in bed, flat, comfortable. HEENT: No oral lesion. Anicteric sclerae. Moist mucosa. NECK: No JVD, adenopathy, or thyromegaly. CARDIOVASCULAR: S1 and S2, regular. No murmurs, rubs, or gallops. LUNGS: Clear to auscultation bilaterally. No wheeze, rales, or rhonchi. ABDOMEN: Bowel sounds are positive, soft, nontender and nondistended. EXTREMITIES: no cyanosis, clubbing or edema. ASSESSMENT: 1. Fall. 2. Hypertension. 3. Gait dysfunction. 4. Dyslipidemia. 5. Degenerative joint disease. PLAN: The patient is currently comfortable. She is on aspirin. She is going to continue losartan for her hypertension. She is on Lipitor for dyslipidemia. She is on Neurontin for neuropathy. She gets tramadol for pain at times. Moreno Lazo MD
[2017-04-10] MEDS ORDERED: MethylPREDNISolone Depo 40 mg/ml Inj IM ONE (14:10)
[2017-04-10] MEDS ORDERED: Bupivacaine 0.5% Inj(30mL) IJ ONE (14:11)
--- NOTE | 2017-04-11 16:27 | RAD ---
PROCEDURE: Left Knee Radiographs. HISTORY: Status post fall. COMPARISON: No prior study available for comparison FINDINGS: BONES: No evidence of acute displaced fracture nor dislocation. The osseous structures appear intact. JOINTS: Mild degenerative osteoarthritis most notably affecting the lateral compartment with small marginal lateral osteophyte formation. Slight spurring tibial spines. Tiny posterior patellar osteophytes. Small anterior superior/ inferior enthesophyte formation JOINT EFFUSION: . Suspect trace joint effusion. OTHER FINDINGS: None. IMPRESSION: No acute fractures. If symptoms persist consider repeat radiographs in 5-10 days as the most fractures should become radiographically evident in this timeframe.
--- NOTE | 2017-04-12 01:41 | CON ---
DATE: 04/11/2017 REASON FOR CONSULTATION: Left knee pain. HISTORY OF PRESENT ILLNESS: This is an 82-year-old female who was admitted for syncopal episode, who states that 2 weeks ago, she had a fall at home. She subsequently has been complaining of left knee pain. She says that she did not initially go to the hospital, but because of persistent pain, she went to the hospital. She says that she is able to ambulate, but is not able to put full pressure on the left lower extremity. She denies any other injury. She denies any hip or groin pain. She denies any lower back pain. PHYSICAL EXAMINATION: GENERAL: This is an elderly female in no apparent distress. She is awake, alert and oriented x3. EXTREMITIES: Evaluation of the left lower extremity shows she is tolerating passive and active range of motion of the left hip without any pain. Her thigh is soft and nontender. Evaluation of the left knee shows she does have a tmuny-il-[id number] effusion. She is tender to palpation, but is most tender over the lateral aspect of her distal femur. No gross varus-valgus instability is appreciated. She has range of motion from about -7 to about 95 to 100 degree of flexion. Her calf is soft and nontender. She is not tender over her tibial shaft and she is moving her ankle without any pain. There are no x-rays available for my review. IMPRESSION: Status post fall with left knee pain. PLAN: At this point, we are going to order x-rays. I will follow up with x-rays once the x-rays are complete. Dio Hilton MD
[2017-04-13 16:47] VITALS: RESP 18
--- NOTE | 2017-04-13 18:18 | CP.PCM.PN ---
Subjective - Date & Time of Evaluation Date of Evaluation: 04/13/17 Time of Evaluation: 18:16 - Subjective Subjective: Pt awake, alert. Pt states she no longer has pain with ambulation. On exam L knee, no significant effusion no gross crepitus minimal tenderness to palpation active ROM 0-115 deg of flexion thigh and calf soft, NT xrays: no acute fx or dislocation Plan WBAT LLE cont PT hold off on injection for now f/u as outpatient Objective - Vital Signs/Intake and Output Vital Signs (last 24 hours): Temp Pulse Resp BP Pulse Ox 97.8 F 72 18 132/80 96 04/13/17 16:47 04/13/17 17:20 04/13/17 16:47 04/13/17 17:20 04/13/17 16:47 Intake and Output: 04/13/17 04/13/17 06:59 18:59 Intake Total 780 Balance 780 - Medications Medications: Current Medications Acetaminophen (Tylenol 325mg Tab) 650 mg PO Q4H PRN; Protocol PRN Reason: Pain, moderate (4-7) Last Admin: 04/13/17 05:17 Dose: 650 mg Amlodipine Besylate (Norvasc) 10 mg PO DAILY [facility] Last Admin: 04/13/17 09:27 Dose: 10 mg Aspirin (Aspirin Chewable) 81 mg PO 0800 [facility] PRN Reason: Protocol Last Admin: 04/13/17 08:30 Dose: 81 mg Atorvastatin Calcium (Lipitor) 10 mg PO DIN [facility] PRN Reason: Protocol Last Admin: 04/13/17 17:21 Dose: 10 mg Gabapentin (Neurontin) 300 mg PO TID JAMES PRN Reason: Protocol Last Admin: 04/13/17 17:22 Dose: 300 mg Hydralazine HCl (Apresoline) 10 mg PO TID JAMES PRN Reason: Protocol Last Admin: 04/13/17 17:20 Dose: 10 mg Losartan Potassium (Cozaar) 25 mg PO DAILY JAMES PRN Reason: Protocol Last Admin: 04/13/17 09:27 Dose: 25 mg Tramadol HCl (Ultram) 50 mg PO TID PRN PRN Reason: Pain, moderate (4-7) Last Admin: 04/12/17 23:11 Dose: 50 mg
[2017-04-14 17:01] VITALS: O2SAT 98
--- NOTE | 2017-04-15 08:13 | PN ---
DATE: 04/13/2017 SUBJECTIVE: The patient has no complaints of any chest pain, no shortness of breath, no headache or dizziness. PHYSICAL EXAMINATION: VITAL SIGNS: Temperature is 97.8, pulse of 92, blood pressure is 132/80, and respirations 18. GENERAL: The patient is lying in bed, flat, comfortable. HEENT: No oral lesion. Anicteric sclerae. Moist mucosa. NECK: No JVD, adenopathy, or thyromegaly. CARDIOVASCULAR: S1 and S2, regular. No murmurs, rubs, or gallops. LUNGS: Clear to auscultation bilaterally. No wheeze, rales, or rhonchi. ABDOMEN: Bowel sounds are positive, soft, nontender and nondistended. EXTREMITIES: No cyanosis, clubbing or edema. ASSESSMENT: 1. Osteoarthritis/degenerative joint disease. 2. Fall. 3. Hypertension. 4. Gait dysfunction. 5. Dyslipidemia. PLAN: The patient is feeling comfortable. She is on aspirin. She is going to continue with losartan for her hypertension. She is on Lipitor for dyslipidemia. She is going to continue on amlodipine for hypertension. She is on Neurontin for neuropathy. She is on a heart-healthy diet. I did speak to the patient's executive secretary social welfare about discharging the patient home . I spoke to the patient's daughter, she is agreeable as well. The patient is on tramadol. She states that she needs physical therapy, otherwise, she is not going to be physical therapy. We are going to limit her tramadol. Moreno Lazo MD
[2017-04-15 10:07] VITALS: BP 151/83; PULSE 84
[2017-04-15 10:42] VITALS: TEMP 97.5
--- NOTE | 2017-04-16 16:28 | DS ---
SUBJECTIVE: This is an 82-year-old female, who is coming into the hospital with difficulty ambulating. She was sent to transitional care unit for rehab, she did improve. She was offered to go to a subacute rehab facility, which she is refusing. She has requested to home. She has no complaints of any chest pain. No shortness of breath. No headache, or dizziness. PHYSICAL EXAMINATION: VITAL SIGNS: Temperature is 97.5, pulse of 84, blood pressure 151/83, respirations . GENERAL: The patient is lying in bed, flat, comfortable. HEENT: No oral lesion. Anicteric sclerae. Moist mucosa. NECK: No JVD, adenopathy, or thyromegaly. CARDIOVASCULAR: S1 and S2, regular. No murmurs, rubs, or gallops. LUNGS: Clear to auscultation bilaterally. No wheeze, rales, or rhonchi. ABDOMEN: Bowel sounds are positive, soft, nontender and nondistended. EXTREMITIES: No cyanosis, clubbing or edema. ASSESSMENT: 1. Osteoarthritis/degenerative joint disease. 2. Borderline hypertension. 3. Gait dysfunction. 4. Dyslipidemia. PLAN: The patient is currently comfortable. She wants to continue her aspiring daily. She is on Lipitor for dyslipidemia. She is on amlodipine for her hypertension. She is going to be discharged home. CONDITION: Stable. ACTIVITIES: Increase as tolerated. Moreno Lazo MD
== END 2017-04-15 14:47 | disposition home or self-care (01) | DRG 93 ==
LOC: TRCU 14:10
PROVIDERS: ADMIT Internal Medicine Nephrology; ATTEND Internal Medicine Nephrology
PROC: F07Z9FZ Gait Training/Functional Ambulation Treatment using Assistive, Adaptive, Supportive or Protective Equipment (ICD-10-PCS; principal; 2017-04-08)
PROC: F08Z4FZ Home Management Treatment using Assistive, Adaptive, Supportive or Protective Equipment (ICD-10-PCS; 2017-04-09)
DX: R26.89 Other abnormalities of gait and mobility (principal); M17.12 Unilateral primary osteoarthritis, left knee; I10 Essential (primary) hypertension; E78.5 Hyperlipidemia, unspecified; Z91.81 History of falling

== ENCOUNTER 2017-05-28 11:27 | Inpatient (IN) | payer MEDICARE ==
--- NOTE | 2017-05-28 11:52 | ED PDOC ---
Arrival/HPI - General Chief Complaint: Trauma Time Seen by Provider: 05/28/17 11:31 Historian: Patient - History of Present Illness Narrative History of Present Illness (Text): 05/28/17 11:35 An 82 year old female, whose past medical history includes CAD with 2 stentsm hypertension, hyperlipidemia, and arthritis, presents to the emergency department complaining of mechanical fall since last night. Patient reports she was ambulating with her walker and was going to answer the phone, and felt her knee gave out. After patient fell, she was unable to get up and was assisted by her and friend. Patient notes experiencing lower back pain and lower left leg pain, but denies of any head trauma, loss of consciousness, neck pain, abdominal pain, hip pain, or any other complaints. PMD: Dr. Robles Time/Duration: Other (last night ) Symptom Onset: Sudden Symptom Course: Unchanged Past Medical History - Provider Review Nursing Documentation Reviewed: Yes - Infectious Disease Hx of Infectious Diseases: None - Cardiac Hx Cardiac Disorders: Yes (Afib) Hx Atrial Fibrillation: Yes Hx Congestive Heart Failure: Yes Hx Hypertension: Yes - Pulmonary Hx Chronic Obstructive Pulmonary Disease (COPD): No - Neurological HX Cerebrovascular Accident: No - HEENT Hx HEENT Disorder: No - Renal Hx Renal Disorder: No - Endocrine/Metabolic Hx Diabetes Mellitus Type 1: No Hx Diabetes Mellitus Type 2: No Hx Hypothyroidism: No - Hematological/Oncological Hx Blood Transfusions: No Hx Blood Transfusion Reaction: No - Integumentary Hx Dermatological Disorder: Yes Other/Comment: Shingles on left side of neck on 04/14/16. 12-15-16 LEFT HIP WITH IRREGULARLY SHAPED STAGE 2 PRESSURE ULCER .MEASURES 1.5 X 2.5 CM. RED AREA. MILD SEROUS DRAINAGE.01-20-17 HEALING .FLAT REDDENED AREA.DRY.3 X 4 CM . BILATERAL LE DARK TO LIGHT BROWNISH SKIN. DISCOLORATION.EDEMA +1.PITTING - Musculoskeletal/Rheumatological Hx Arthritis: Yes - Gastrointestinal Hx Gastrointestinal Disorders: (pt can't recall last bm) - Genitourinary/Gynecological Hx Reproductive Disorders: No - Psychiatric Hx Psychophysiologic Disorder: No Hx Emotional Abuse: No Hx Physical Abuse: No Hx Substance Use: No - Surgical History Hx Coronary Stent: Yes (X2) Other/Comment: CARDIAC STENT X 2 - Anesthesia Hx Anesthesia Reactions: No Hx Malignant Hyperthermia: No - Suicidal Assessment Feels Threatened In Home Enviroment: No Family/Social History - Physician Review Nursing Documentation Reviewed: Yes Family/Social History: No Known Family HX Smoking Status: Never Smoked Hx Alcohol Use: No Hx Substance Use: No Allergies/Home Meds Allergies/Adverse Reactions: Allergies No Known Allergies Allergy (Verified 04/15/17 08:43) Home Medications: Home Meds Medication Instructions Recorded Confirmed Losartan [Cozaar] 12.5 mg PO DAILY 01/20/17 05/28/17 Pravastatin Sodium [Pravachol] 10 mg PO DAILY 01/20/17 05/28/17 Warfarin [Coumadin] 2 mg PO DAILY 01/20/17 05/28/17 Nitrofurantoin Monohyd/M-Cryst 100 mg PO BID 04/04/17 05/28/17 [Nitrofurantoin Cache-Mcr 100 mg] Review of Systems - Physician Review All systems were reviewed & negative as marked: Yes - Review of Systems Constitutional: absent: Other (no head trauma) Gastrointestinal: absent: Abdominal Pain Musculoskeletal: Back Pain (lower back pain ), Other (lower left leg pain; no hip pain ). absent: Neck Pain Neurological: absent: Other (no loss of consciousness) Physical Exam Vital Signs Reviewed: Yes Vital Signs Temp Pulse Resp BP Pulse Ox 05/28/17 17:12 86 18 154/75 H 96 05/28/17 15:00 86 16 163/81 H 98 05/28/17 13:39 89 18 157/113 H 97 05/28/17 11:45 98.8 F 86 18 151/106 H 97 05/28/17 11:28 91 H 20 196/108 H Temperature: Afebrile Blood Pressure: Hypertensive Pulse: Regular Respiratory Rate: Normal Appearance: Positive for: Well-Appearing Pain Distress: None Mental Status: Positive for: Alert and Oriented X 3 - Systems Exam Head: Present: Atraumatic, Normocephalic Pupils: Present: PERRL Extroacular Muscles: Present: EOMI Conjunctiva: Present: Normal Mouth: Present: Moist Mucous Membranes Neck: Present: Normal Range of Motion Respiratory/Chest: Present: Clear to Auscultation, Good Air Exchange. No: Respiratory Distress, Accessory Muscle Use Cardiovascular: Present: Regular Rate and Rhythm, Normal S1, S2. No: Murmurs Abdomen: Present: Normal Bowel Sounds. No: Tenderness, Distention, Peritoneal Signs Back: Present: Midline Tenderness (lower midline tenderness), Paraspinal Tenderness Upper Extremity: Present: Normal ROM (full ROM to hips). No: Tenderness (no tenderness to hips) Lower Extremity: Present: Edema (left lower leg edema from mid lower leg to ankle), Tenderness (left lower leg tenderness from mid lower leg to ankle), Other (ecchymosis to left lower leg). No: Normal ROM (decreased ROM to left lower leg) Neurological: Present: GCS=15, CN II-XII Intact, Speech Normal Skin: Present: Warm, Dry, Normal Color. No: Rashes Psychiatric: Present: Alert, Oriented x 3, Normal Insight, Normal Concentration Medical Decision Making ED Course and Treatment: 05/28/17 11:40 Impression: 82 year old female with lower left leg pain and lower back pain s/p mechanical fall. Physical exam shows lower midline tenderness and paraspinal tenderness; lower leg edema and tenderness from mid lower leg to ankle, decreased ROM to left lower leg. Differential Diagnosis included but are not limited to: Sprain vs. Fracture s/ p mechanical fall Plan: -- Lumabr Spinal CT -- Labs -- Ultram -- Left Ankle X-Ray -- Bilateral Knee X-ray -- Pelvis X-Ray -- Left Tibia Fibula X-Ray -- Reassess and disposition Prior Visits: Notes and results from previous visits were reviewed. Patient was last seen in the emergency department on 04/04/2017 for syncopal episode. Patient was admitted. Progress Notes: 05/28/2017 13:[address] IMPRESSION: No acute fracture. Multilevel disc bulge as detailed above without focal disc herniation. Grade 1 anterolistthesis at L4-5 with mild central spinal stenosis. Multilevel neural foraminal stenosis as described. Dictator: Teodoro De Jesus MD 05/28/2017 14:17 Left Ankle X-Ray IMPRESSION: Bimalleolar fracture dislocation of the left ankle. Dictator: Jose Garrett MD 05/28/2017 14:18 Bilateral Knee X-Ray IMPRESSION: Normal radiographs of the knees. Dictator: Jose Garrett MD 05/28/2017 14:19 Pelvis X-Ray IMPRESSION: Unremarkable radiographs of the pelvis. Dictator: Jose Garrett MD Xrays shows bimalleolar fx of the left ankle. Patient's extremity is neurovascularily intact. Good sensation. +2 pulses. I discussed case with Dr. Hilton who recommends posterior splint. Patient will not be able to use crutches because of her age and strength. I discussed this with him and he agrees with admission. She will need the swelling to go down before she has surgery. I discussed case with Dr. Payton who is covering for Dr. Lazo and she will place under her service. - Lab Interpretations Lab Results: 05/28/17 12:01 05/28/17 12:01 Lab Results 05/28/17 13:45: PT 35.0 H*, INR 3.24 H, APTT 43.1 H 05/28/17 12:01: Sodium 139, Potassium 4.2, Chloride 102, Carbon Dioxide 26, Anion Gap 15, BUN 10, Creatinine 0.5 L, Est GFR ( Amer) > 60, Est GFR ( Non-Af Amer) > 60, Random Glucose 114 H, Calcium 10.3 05/28/17 12:01: WBC 10.8 D, RBC 4.64, Hgb 13.5, Hct 41.1, MCV 88.6, MCH 29.1, MCHC 32.8, RDW 15.7 H, Plt Count 182, MPV 10.2, Gran % 76.7 H, Lymph % (Auto) 12.5 L, Cache % (Auto) 10.0 H, Eos % (Auto) 0.6 L, Baso % (Auto) 0.2, Gran # 8.30 H, Lymph # 1.4, Cache # 1.1 H, Eos # 0.1, Baso # 0.02 I have reviewed the lab results: Yes Interpretation: All labs normal - RAD Interpretation Radiology Orders: 05/28/17 11:44 LUMBAR SPINE W/O CONTRAST [CT] Stat ANKLE LEFT 3 VIEWS ROUTINE [RAD] Stat KNEES BILATERAL [RAD] Stat 05/28/17 11:46 PELVIS ONE VIEW [RAD] Stat Wind Up Operator: Radiologist - Medication Orders Current Medication Orders: Discontinued Medications Morphine Sulfate (Morphine) 4 mg IVP STAT STA Stop: 05/28/17 14:00 Last Admin: 05/28/17 14:14 Dose: 4 mg SHAQUILLE Pain Assessment Document 05/28/17 14:14 DAMIEN (Rec: 05/28/17 14:15 DAMIEN [id number]) Pain Reassessment Is this a pain reassessment? No Sleep Is patient sleeping during reassessment? No Pain Scale Used Pain Scale Used Numeric Description Description Intermittent Intensity of Pain at present 5 IVP Administration Document 05/28/17 14:14 DAMIEN (Rec: 05/28/17 14:15 DAMIEN [id number]) Charges for Administration # of IVP Administrations 1 Tramadol HCl (Ultram) 50 mg PO STAT STA Stop: 05/28/17 11:47 Last Admin: 05/28/17 12:11 Dose: 50 mg [facility] Pain Assessment Document 05/28/17 12:11 CNR (Rec: 05/28/17 12:13 CNR [id number]) Pain Reassessment Is this a pain reassessment? Yes Sleep Is patient sleeping during reassessment? No Presence of Pain Presence of Pain Yes Pain Scale Used Pain Scale Used Numeric Location Left, Right or Bilateral Left Upper or Lower Lower Pain Location Body Site Leg Description Description Constant Re-Assess: [facility] Pain Assessment Document 05/28/17 13:11 SZA (Rec: 05/28/17 14:19 [facility] [id number]) Pain Reassessment Is this a pain reassessment? Yes Sleep Is patient sleeping during reassessment? No Presence of Pain Presence of Pain Yes Pain Scale Used Pain Scale Used Numeric Description Description Intermittent Intensity of Pain at present 4 - Scribe Statement The provider has reviewed the documentation as recorded by the Marlon Hooker Provider Scribe Attestation: All medical record entries made by the Pedroibtierra were at my direction and personally dictated by me. I have reviewed the chart and agree that the record accurately reflects my personal performance of the history, physical exam, medical decision making, and the department course for this patient. I have also personally directed, reviewed, and agree with the discharge instructions and disposition. Disposition/Present on Arrival - Present on Arrival Any Indicators Present on Arrival: No History of DVT/PE: No History of Uncontrolled Diabetes: No Urinary Catheter: No History of Decub. Ulcer: No History Surgical Site Infection Following: None - Disposition Have Diagnosis and Disposition been Completed?: Yes Diagnosis: Ankle fracture Disposition: HOSPITALIZED Disposition Time: 15:34 Patient Plan: Admission Condition: FAIR
[2017-05-28 12:16] LABS: BASO # 0.02 K/mm3 (0.0-2.0); BASO % 0.2 % (0.0-3.0); EOS # 0.1 (0.0-0.7); EOS % 0.6 % (1.5-5.0); GRAN # 8.3 (1.4-6.5); GRAN % 76.7 % (50.0-68.0); HEMATOCRIT 41.1 % (36.0-48.0); LYMPH # 1.4 (1.2-3.4); LYMPH % 12.5 % (22.0-35.0); MEAN CELL VOLUME 88.6 fl (80.0-105.0); MEAN CORPUSCULAR HEMOGLOBIN 29.1 pg (25.0-35.0); MEAN CORPUSCULAR HGB CONC 32.8 g/dl (31.0-37.0); MEAN PLATELET VOLUME 10.2 fl (7.0-11.0); MONO # 1.1 (0.1-0.6); RED CELL DISTRIBUTION WIDTH 15.7 % (11.5-14.5); WHITE BLOOD COUNT 10.8 10^3/ul (4.5-11.0)
[2017-05-28 12:33] LABS: BLOOD UREA NITROGEN 10 mg/dL (7-21); CALCIUM 10.3 mg/dL (8.4-10.5); CARBON DIOXIDE 26 mmol/L (21-33); CHLORIDE 102 mmol/L (98-107); GFR AFRICAN-AMERICAN > 60; GLUCOSE,RANDOM 114 mg/dL (70-110); SODIUM 139 mmol/L (132-148)
[2017-05-28 12:34] LABS: POTASSIUM 4.2 mmol/L (3.6-5.0)
--- NOTE | 2017-05-28 13:39 | CT ---
PROCEDURE: CT Lumbar Spine without contrast HISTORY: fall r/o fx COMPARISON: None. TECHNIQUE: Axial computed tomography images were obtained of the lumbar spine without the use of intravenous contrast. Coronal and sagittal reformatted images were created and reviewed. Radiation dose: Total exam DLP = 761.68 mGy-cm. This CT exam was performed using one or more of the following dose reduction techniques: Automated exposure control, adjustment of the mA and/or kV according to patient size, and/or use of iterative reconstruction technique. FINDINGS: VERTEBRAE: Vertebral bodies are maintained in height. There is mild levo scoliotic curvature of the lumbar spine. The transverse processes and posterior elements appear intact. Please note that the 5th lumbar vertebra is partially sacralized. There is grade 1 anterolisthesis at the L4-5 level. There is no spondylolysis. DISCS/SPINAL CANAL/NEURAL FORAMINA: L1-2: Unremarkable. L2-3: Minimal disc bulge. No focal herniation. No spinal or foraminal stenosis. L3-4: Diffuse disc bulge. No focal herniation. Mild to moderate right and left neural foraminal stenosis. No central spinal stenosis. L4-5: Extensive diffuse disc bulge. No focal herniation. There is mild central spinal stenosis. There is moderate right and slnfqbij-hy-ktiqvi left neural foraminal stenosis. L5-S1: Unremarkable. PARASPINAL SOFT TISSUES: Note is made of a left ureteral stent. OTHER FINDINGS: None. IMPRESSION: No acute fracture. Multilevel disc bulge as detailed above without focal disc herniation. Grade 1 anterolisthesis at L4-5 with mild central spinal stenosis. Multilevel neural foraminal stenosis as described.
[2017-05-28] MEDS ORDERED: Morphine 4 mg/ml ISec IVP STA (13:59)
--- NOTE | 2017-05-28 14:18 | RAD ---
PROCEDURE: Left Ankle Radiographs. HISTORY: fall r/o fx COMPARISON: None FINDINGS: BONES: There is an obliquely oriented displaced fracture of the distal fibula and a transverse displaced fracture of the medial malleolus. There is associated ankle dislocation. There is 2 cm of lateral dislocation of the talus relative to the tibia JOINTS: Dislocated ankle SOFT TISSUES: Normal. OTHER FINDINGS: None. IMPRESSION: Bimalleolar fracture dislocation of the left ankle
--- NOTE | 2017-05-28 14:20 | RAD ---
PROCEDURE: Bilateral Knee Radiographs. HISTORY: fall r/o fx COMPARISON: None. FINDINGS: BONES: Right Knee: Normal. No fracture. Left Knee: Normal. No fracture. JOINTS: Right Knee: Normal. No osteoarthritis. Left knee: Normal. No osteoarthritis. SOFT TISSUES: Right Knee: Normal. Left Knee: Normal. JOINT EFFUSION: Right Knee: None. Left Knee: None. OTHER FINDINGS: None. IMPRESSION: Normal radiographs of the knees.
--- NOTE | 2017-05-28 14:20 | RAD ---
PROCEDURE: Radiographs of the pelvis. HISTORY: fall r/o fx COMPARISON: None. FINDINGS: BONES: Pelvic Bones: Unremarkable. Hips: Grossly unremarkable. JOINTS: Sacroiliac Joints: Unremarkable. Pubic Symphysis: Unremarkable. OTHER FINDINGS: None. IMPRESSION: Unremarkable radiographs of the pelvis.
[2017-05-28 14:28] LABS: INR 3.24 (0.93-1.08); PARTIAL THROMBOPLASTIN TIME 43.1 Seconds (23.7-30.8)
[2017-05-28] MEDS ORDERED: Morphine 4 mg/ml ISec IVP PRN (18:14)
[2017-05-28] MEDS ORDERED: Lidocaine 1% Inj (20ml) IJ STA (19:26)
[2017-05-28] MEDS: Morphine 2 mg/ml ISec IVP PRN (20:09)
--- NOTE | 2017-05-28 23:02 | CP.PCM.CON ---
History of Present Illness - History of Present Illness History of Present Illness: ORTHOPEDIC CONSULT NOTE- Dr. Hilton 82 year old female seen at bedside concerning condition after mechanical fall injury yesterday evening. Patient reports she was ambulating with her walker and was going to answer the phone, and felt her knee gave out. After patient fell, she was unable to get up and was assisted by her and friend to bed. Patient notes experiencing lower back pain and lower left leg pain, but denies of any head trauma, loss of consciousness, neck pain, abdominal pain, hip pain, or any other complaints. Pt reports she could not bearweight on the left side thismorning and this prompted her to seek medical attention. PMD: Dr. Robles PMH: CAD with 2 stentsm hypertension, hyperlipidemia, and arthritis Past Patient History - Infectious Disease Hx of Infectious Diseases: None - Past Social History Smoking Status: Never Smoked - CARDIAC Hx Cardiac Disorders: Yes (Afib) Hx Atrial Fibrillation: Yes Hx Congestive Heart Failure: Yes Hx Hypertension: Yes - PULMONARY Hx Chronic Obstructive Pulmonary Disease (COPD): No - NEUROLOGICAL HX Cerebrovascular Accident: No - HEENT Hx HEENT Problems: No - RENAL Hx Chronic Kidney Disease: No - ENDOCRINE/METABOLIC Hx Diabetes Mellitus Type 1: No Hx Diabetes Mellitus Type 2: No Hx Hypothyroidism: No - HEMATOLOGICAL/ONCOLOGICAL Hx Blood Transfusions: No Hx Blood Transfusion Reaction: No - INTEGUMENTARY Hx Dermatological Problems: Yes Other/Comment: Shingles on left side of neck on 04/14/16. 5--17 LEFT HIP WITH IRREGULARLY SHAPED STAGE 2 PRESSURE ULCER .MEASURES 1.5 X 2.5 CM. RED AREA. MILD SEROUS DRAINAGE.01-20-17 HEALING .FLAT REDDENED AREA.DRY.3 X 4 CM . BILATERAL LE DARK TO LIGHT BROWNISH SKIN. DISCOLORATION.EDEMA +1.PITTING - MUSCULOSKELETAL/RHEUMATOLOGICAL Hx Arthritis: Yes - GASTROINTESTINAL Hx Gastrointestinal Disorders: (pt can't recall last bm) - GENITOURINARY/GYNECOLOGICAL Hx Reproductive Disorders: No - PSYCHIATRIC Hx Psychophysiologic Disorder: No Hx Emotional Abuse: No Hx Physical Abuse: No Hx Substance Use: No - SURGICAL HISTORY Hx Coronary Stent: Yes (X2) Other/Comment: CARDIAC STENT X 2 - ANESTHESIA Hx Anesthesia Reactions: No Hx Malignant Hyperthermia: No Meds Allergies/Adverse Reactions: Allergies Allergy/AdvReac Type Severity Reaction Status Date / Time No Known Allergies Allergy Verified 04/15/17 08:43 - Medications Medications: Current Medications Acetaminophen (Tylenol 325mg Tab) 650 mg PO Q6H PRN PRN Reason: Fever >100.4 F Aspirin (Ecotrin) 81 mg PO DAILY [facility] Atorvastatin Calcium (Lipitor) 10 mg PO DIN JAMES Gabapentin (Neurontin) 300 mg PO TID JAMES PRN Reason: Protocol Sodium Chloride (Sodium Chloride 0.9%) 1,000 mls @ 70 mls/hr IV .[id number] [facility] Losartan Potassium (Cozaar) 12.5 mg PO DAILY [facility] Morphine Sulfate (Morphine) 2 mg IVP Q3H PRN PRN Reason: Pain, severe (8-10) Last Admin: 05/28/17 20:09 Dose: 2 mg Pantoprazole Sodium (Protonix Inj) 40 mg IVP DAILY [facility] Physical Exam - Constitutional Appears: Well, Non-toxic, No Acute Distress - Extremities Exam Extremities exam: Positive for: joint swelling, pedal edema, tenderness, pedal pulses present. Negative for: calf tenderness Additional comments: Lower extremity focused. Posterior splint applied. No tenderness upon palpation to left hip, thigh, and knee. Tenderness to palpation to left ankle. Moderately Laterally deviated foot complex in relation to lower leg. Hip level flexors, extensors, abducto and adductor muscle groups ae grossly intact, graded 5/5 in strength. Knee flexion and extension intact, absent weakness. Ankle joint range of motion limited secondary to swelling and guarding. - Neurological Exam Neurological exam: Alert, Oriented x3 - Psychiatric Exam Psychiatric exam: Normal Affect, Normal Mood - Skin Additional comments: Left ankle and lower leg level ecchymosis absent vesicles or bulla. Moderated, non-pitting edena noted at level of left ankle. Results - Vital Signs Recent Vital Signs: Last Vital Signs Temp 97.8 F 05/28/17 17:12 Pulse 86 05/28/17 17:12 Resp 18 05/28/17 17:12 BP 154/75 H 05/28/17 17:12 Pulse Ox 96 05/28/17 17:12 - Labs Result Diagrams: 05/28/17 12:01 05/28/17 12:01 Assessment & Plan - Assessment and Plan (Free Text) Assessment: 82 year old female with left ankle bimalleolar fracture secondary to acute traumtic fall injury. Plan: Pt seen and evaluated. Chart, labs, and vitals reviewed. Discussed pt in detail with attending, Dr. Beaulieu who endorsed the following plan. Removed ED applied posterior splint. Assessed post-traumatic deformity. Closed reduction indicated. Discussed with pt need for bedside closed reduction and future need for surgical correction. Pt consents to bedside procedure and understands surgical intervention is needed. Administered 5mg of Valium orally, to moderately sedate pt for procedure. Ankle level ring block performed with 12 mL 1% lidocaine plain. Left ankle intra-articular hematoma block performed with 9mls of 1% lidocaine plain. Closed reduction performed. Applied AO-Posterior splint to left ankle. Post reduction films ordered and evaluated, improved position and reduction of dislocation noted. Pt placed non-weightbearing to left lower extremity with use of standing walker. Pt to rest, ice, and elevate left ankle. Continue analgesic control. - Date & Time Date: 05/28/17 Time: 22:15
[2017-05-28 23:30] VITALS: BMI 29.0
[2017-05-28] MEDS ORDERED: Pneumococcal 23-Valent Vaccine IM ONE (23:31)
[2017-05-28] MEDS ORDERED: Influenza Vaccine 60 mcg/0.5 mL SYR (4YR UP) IM ONE (23:31)
[2017-05-29 02:02] LABS: URINE BILIRUBIN MODERATE (NEGATIVE); URINE BLOOD LARGE (NEGATIVE); URINE GLUCOSE (UA) NEGATIVE (NEGATIVE); URINE KETONE 40 mg/dL (NEGATIVE); URINE LEUKOCYTE ESTERASE LARGE Leu/uL (NEGATIVE); URINE PROTEIN >=300 mg/dL (<30 mg/dL)
[2017-05-29 02:05] LABS: URINE APPEARANCE CLOUDY (CLEAR); URINE COLOR RED (YELLOW)
[2017-05-29 02:28] LABS: URINE BACTERIA MANY (NEG); URINE EPITHELIAL CELLS 0 - 2 /hpf (0-5); URINE RBC 15 - 20 /hpf (0-2); URINE WBC TNTC /hpf (0-6)
[2017-05-29 09:42] LABS: INR 3.44 (0.93-1.08)
--- NOTE | 2017-05-29 10:17 | RAD ---
PROCEDURE: Left Ankle Radiographs. HISTORY: left ankle fluroscopic reduction COMPARISON: None FINDINGS: BONES: The ankle is now in a plaster cast. There is slight improvement in the degree of dislocation of the ankle. Previously there was 2 cm of lateral dislocation of the talus relative to the tibia. There is now only 9 mm. There is a transverse displaced fracture of the medial malleolus. There is an oblique displaced fracture of the distal fibula. JOINTS: As above SOFT TISSUES: Normal. OTHER FINDINGS: None. IMPRESSION: Slight improvement in fracture dislocation of the left ankle. See comments
[2017-05-29] MEDS: Sodium Chloride 0.9% 1,000 ML IV SCH ×2 (11:01→21:15)
[2017-05-29] MEDS: cefTRIAXone 1 gm 1 GM/100 ML BAG IVPB SCH (14:50)
--- NOTE | 2017-05-29 15:37 | CARD ---
APPROVED REPORT EKG Measurement Heart [id number] <Conclusion> Atrial fibrillation Possible Old Septal infarct.
--- NOTE | 2017-05-29 16:15 | CON ---
DATE: 05/29/2017 REASON FOR CONSULT: Left ankle fracture. HISTORY OF PRESENT ILLNESS: This is an 82-year-old female with multiple medical problems, who was admitted yesterday status post fall with left ankle pain, deformity, and inability to ambulate. In the ER the patient was diagnosed with the left ankle fracture, was subsequently admitted, and I was consulted for further orthopedic evaluation and treatment. Today, she denies significant pain, she denies any other injuries. She denies any numbness, or tingling in the foot. PHYSICAL EXAMINATION: GENERAL: She is awake, alert and responsive. EXTREMITIES: She is actively moving the right lower extremity without any pain. Examination of the left lower extremity, she is able to move her hip actively and passively without any pain. Her thighs soft and nontender. Evaluation of the left knee shows no obvious effusion. She has a left lower extremity splint in place. She is grossly neurovascularly intact. She has good capillary refill in all her toes. Moderate significant amount of swelling is appreciated. LABORATORY DATA: X-rays: The patient underwent close reduction yesterday by the podiatry resident. X-rays, post reduction actually show a displaced bimalleolar fracture; however, the tibia appears to be over the talus. No evidence of dislocation at this time. PLAN: At this point given the amount of soft tissue swelling recommendations would be for nonweightbearing, ice elevation, and plan for formal open reduction internal fixation at the fracture once the soft tissues are stabilized. For now, I would anticipate delaying surgery for the next 7 to 10 days, and at that time her soft tissues will be reassessed, and the plan would be to proceed with the surgery. For now, she has been recommended DVT prophylaxis as per the medicine team given her history of AFib and elevated INR, and I will follow. Dio Hilton MD
[2017-05-29] MEDS: Morphine 2 mg/ml ISec IVP PRN ×2 (18:12→21:11)
--- NOTE | 2017-05-29 22:30 | CP.PCM.HP ---
History of Present Illness - History of Present Illness History of Present Illness: Patient had a mechanical fall at home. Complaining of left ankle pain. X ray showed left ankle fracture. She is coagulopathic due to coumadin for A-Fib. CAD- stable. No chest pain. A-Fib, heart rate controlled with current meds. Present on Admission - Present on Admission Any Indicators Present on Admission: No Review of Systems - Constitutional Constitutional: As Per HPI - EENT Eyes: absent: As Per HPI, Blind Spots, Blurred Vision, Change in Vision, Decreased Night Vision, Diplopia, Discharge, Dry Eye, Exophthalmos, Floaters, Irritation, Itchy Eyes, Loss of Peripheral Vision, Pain, Photophobia, Requires Corrective Lenses, Sees Flashes, Spots in Vision, Tunnel Vision, Other Visual Disturbances, Loss of Vision, Other Nose/Mouth/Throat: absent: As Per HPI, Epistaxis, Nasal Congestion, Nasal Discharge, Nasal Obstruction, Nasal Trauma, Nose Pain, Post Nasal Drip, Sinus Pain, Sinus Pressure, Bleeding Gums, Change in Voice, Dental Pain, Dry Mouth, Dysphagia, Halitosis, Hoarsness, Lip Swelling, Mouth Lesions, Mouth Pain, Odynophagia, Sore Throat, Throat Swelling, Tongue Swelling, Facial Pain, Neck Pain, Neck Mass, Other - Cardiovascular Cardiovascular: absent: As Per HPI, Acrocyanosis, Chest Pain, Chest Pain at Rest , Chest Pain with Activity, Claudication, Diaphoresis, Dyspnea, Dyspnea on Exertion, Edema, Irregular Heart Rhythm, Pain Radiating to Arm/Neck/Jaw, Leg Edema, Leg Ulcers, Lightheadedness, Orthopnea, Palpitations, Paroxysmal Nocturnal Dyspnea, Pedal Edema, Radiating Pain, Rapid Heart Rate, Slow Heart Rate, Syncope, Other - Respiratory Respiratory: absent: As Per HPI, Cough, Dyspnea, Hemoptysis, Dyspnea on Exertion , Wheezing, Snoring, Stridor, Pain on Inspiration, Chest Congestion, Excessive Mucous Production, Change in Mucous Color, Pain with Coughing, Other - Gastrointestinal Gastrointestinal: absent: As Per HPI, Abdominal Pain, Belching, Bloating, Change in Bowel Habits, Change in Stool Character, Coffee Ground Emesis, Constipation, Cramping, Diarrhea, Dyspepsia, Dysphagia, Early Satiety, Excessive Flatus, Fecal Incontinence, Heartburn, Hematemesis, Hematochezia, Loose Stools, Melena, Nausea, Odynophagia, Temesmus, Vomiting, Other - Musculoskeletal Musculoskeletal: As Per HPI - Integumentary Integumentary: absent: As Per HPI, Acne, Alopecia, Bleeding Lesions, Change in Hair, Change in Nails, Change in Pigmentation, Changing Lesions, Dry Skin, Erythema, Furuncle, Hirsutism, Lesions, New Lesions, Non-Healing Lesions, Photosensitivity, Pruritus, Rash, Skin Pain, Skin Ulcer, Sores, Striae, Swelling , Unusual Bruising, Wounds, Jaundice, Other - Neurological Neurological: absent: As Per HPI, Abnormal Gait, Abnormal Hearing, Abnormal Movements, Abnormal Speech, Behavioral Changes, Burning Sensations, Confusion, Convulsions, Disequilibrium, Dizziness, Numbness, Focal Weakness, Frequent Falls , Headaches, Lack of Coordination, Loss of Vision, Memory Loss, Paresthesias, Radicular Pain, Restless Legs, Sensory Deficit, Syncope, Tingling, Tremor, Vertigo, Weakness, Other Visual Disturbances, Other - Psychiatric Psychiatric: absent: As Per HPI, Abnormal Sleep Pattern, Anhedonia, Anxiety, Auditory Hallucinations, Behavioral Changes, Change in Appetite, Change in Libido, Confusion, Depression, Difficulty Concentrating, Hallucinations, Homicidal Ideation, Hopelessness, Irritability, Memory Loss, Mood Swings, Panic Attacks, Paranoia, Suicidal Ideation, Visual Hallucinations, Tactile Hallucinations, Other - Endocrine Endocrine: absent: As Per HPI, Change in Body Appearance, Change in Libido, Cold Intolorance, Deepening of Voice, Excessive Sweating, Fatigue, Flushing, Heat Intolorance, Increase in Ring/Shoe/Hat Size, Palpitations, Polydipsia, Polyphagia, Polyuria, Other - Hematologic/Lymphatic Hematologic: As Per HPI Past Patient History - Infectious Disease Hx of Infectious Diseases: None - Past Social History Smoking Status: Never Smoked - CARDIAC Hx Cardiac Disorders: Yes (Afib) Hx Atrial Fibrillation: Yes Hx Congestive Heart Failure: Yes Hx Hypertension: Yes - PULMONARY Hx Chronic Obstructive Pulmonary Disease (COPD): No - NEUROLOGICAL HX Cerebrovascular Accident: No - HEENT Hx HEENT Problems: No - RENAL Hx Chronic Kidney Disease: No - ENDOCRINE/METABOLIC Hx Diabetes Mellitus Type 1: No Hx Diabetes Mellitus Type 2: No Hx Hypothyroidism: No - HEMATOLOGICAL/ONCOLOGICAL Hx Blood Transfusions: No Hx Blood Transfusion Reaction: No - INTEGUMENTARY Hx Dermatological Problems: Yes Other/Comment: Shingles on left side of neck on 04/14/16. 12-15-16 LEFT HIP WITH IRREGULARLY SHAPED STAGE 2 PRESSURE ULCER .MEASURES 1.5 X 2.5 CM. RED AREA. MILD SEROUS DRAINAGE.01-20-17 HEALING .FLAT REDDENED AREA.DRY.3 X 4 CM . BILATERAL LE DARK TO LIGHT BROWNISH SKIN. DISCOLORATION.EDEMA +1.PITTING - MUSCULOSKELETAL/RHEUMATOLOGICAL Hx Arthritis: Yes - GASTROINTESTINAL Hx Gastrointestinal Disorders: (pt can't recall last bm) - GENITOURINARY/GYNECOLOGICAL Hx Reproductive Disorders: No - PSYCHIATRIC Hx Psychophysiologic Disorder: No Hx Emotional Abuse: No Hx Physical Abuse: No Hx Substance Use: No - SURGICAL HISTORY Hx Coronary Stent: Yes (X2) Other/Comment: CARDIAC STENT X 2 - ANESTHESIA Hx Anesthesia Reactions: No Hx Malignant Hyperthermia: No Meds Allergies/Adverse Reactions: Allergies Allergy/AdvReac Type Severity Reaction Status Date / Time No Known Allergies Allergy Verified 04/15/17 08:43 Physical Exam - Constitutional Appears: Well, Non-toxic - Head Exam Head Exam: ATRAUMATIC, NORMAL INSPECTION, NORMOCEPHALIC - Eye Exam Eye Exam: Normal appearance - ENT Exam ENT Exam: Mucous Membranes Moist, Normal Exam - Neck Exam Neck exam: Positive for: Normal Inspection - Respiratory Exam Respiratory Exam: Clear to Auscultation Bilateral, NORMAL BREATHING PATTERN - Cardiovascular Exam Cardiovascular Exam: REGULAR RHYTHM, +S1, +S2 - GI/Abdominal Exam GI & Abdominal Exam: Normal Bowel Sounds, Soft - Extremities Exam Extremities exam: Positive for: normal inspection - Neurological Exam Neurological exam: Alert, CN II-XII Intact, Oriented x3 - Psychiatric Exam Psychiatric exam: Normal Affect Results - Vital Signs Recent Vital Signs: Last Vital Signs Temp 98.3 F 05/29/17 16:00 Pulse 89 05/29/17 16:00 Resp 20 05/29/17 16:00 BP 147/76 05/29/17 16:00 Pulse Ox 95 05/29/17 16:00 - Labs Result Diagrams: 05/28/17 12:01 05/28/17 12:01 Labs: Laboratory Results - last 24 hr 05/29/17 05/29/17 01:45 09:25 PT 37.2 H* INR 3.44 H Urine Color Red Urine Appearance Cloudy Urine pH 7.0 Ur Specific [place] 1.025 Urine Protein >=300 H Urine Glucose (UA) Negative Urine Ketones 40 H Urine Blood Large H Urine Nitrate Positive H Urine Bilirubin Moderate H Urine Urobilinogen 1.0 H Ur Leukocyte Esterase Large H Urine RBC 15 - 20 Urine WBC Tntc Ur Epithelial Cells 0 - 2 Urine Bacteria Many Assessment & Plan - Assessment and Plan (Free Text) Assessment: 1. Left ankle fracture . Consult Dr. Manuel. Hold anticoagulation. INR supratherapeutic. PT, INR daily. 2. Pain : morphine 2 mg IV Q 3 hr prn. 3. UA/urine culture to be sent 4. A-FIB : stable HR controlled. cozar 12.5 mg daily. ASA 81 mg daily. 5. HTN : BP controlled .
--- NOTE | 2017-05-29 22:35 | CP.PCM.PN ---
Subjective - Date & Time of Evaluation Date of Evaluation: 05/29/17 Time of Evaluation: 11:00 - Subjective Subjective: Comfortable in bed. Pain controlled with current meds. UA positive. No chest pain. HR controlled with current meds. Objective - Vital Signs/Intake and Output Vital Signs (last 24 hours): Temp Pulse Resp BP Pulse Ox 98.3 F 89 20 147/76 95 05/29/17 16:00 05/29/17 16:00 05/29/17 16:00 05/29/17 16:00 05/29/17 16:00 Intake and Output: 05/29/17 05/30/17 18:59 06:59 Intake Total 120 660 Balance 120 660 - Medications Medications: Current Medications Acetaminophen (Tylenol 325mg Tab) 650 mg PO Q6H PRN PRN Reason: Fever >100.4 F Aspirin (Ecotrin) 81 mg PO DAILY [facility] Last Admin: 05/29/17 11:00 Dose: 81 mg Atorvastatin Calcium (Lipitor) 10 mg PO DIN [facility] Last Admin: 05/29/17 17:13 Dose: 10 mg Docusate Sodium (Colace) 100 mg PO BID [facility] Last Admin: 05/29/17 18:13 Dose: 100 mg Gabapentin (Neurontin) 300 mg PO TID JAMES PRN Reason: Protocol Last Admin: 05/29/17 18:13 Dose: 300 mg Sodium Chloride (Sodium Chloride 0.9%) 1,000 mls @ 70 mls/hr IV .[id number] [facility] Last Admin: 05/29/17 21:15 Dose: 70 mls/hr Ceftriaxone Sodium (Rocephin 1 Gram Ivpb) 1 gm in 100 mls @ 100 mls/hr IVPB DAILY [facility] PRN Reason: Protocol Last Admin: 05/29/17 14:50 Dose: 100 mls/hr Losartan Potassium (Cozaar) 12.5 mg PO DAILY [facility] Last Admin: 05/29/17 10:59 Dose: 12.5 mg Morphine Sulfate (Morphine) 2 mg IVP Q3H PRN PRN Reason: Pain, severe (8-10) Last Admin: 05/29/17 21:11 Dose: 2 mg Pantoprazole Sodium (Protonix Inj) 40 mg IVP DAILY [facility] Last Admin: 05/29/17 11:00 Dose: 40 mg - Labs Labs: PT 37.2 Seconds (9.9-11.8) H* 05/29/17 09:25 INR 3.44 (0.93-1.08) H 05/29/17 09:25 APTT 43.1 Seconds (23.7-30.8) H 05/28/17 13:45 - Constitutional Appears: Well, Non-toxic - Head Exam Head Exam: ATRAUMATIC, NORMAL INSPECTION, NORMOCEPHALIC - Eye Exam Eye Exam: Normal appearance Pupil Exam: NORMAL ACCOMODATION - ENT Exam ENT Exam: Mucous Membranes Moist - Neck Exam Neck Exam: Normal Inspection - Respiratory Exam Respiratory Exam: Clear to Ausculation Bilateral, NORMAL BREATHING PATTERN - Cardiovascular Exam Cardiovascular Exam: REGULAR RHYTHM, +S1, +S2 - GI/Abdominal Exam GI & Abdominal Exam: Soft, Normal Bowel Sounds - Back Exam Back Exam: NORMAL INSPECTION - Neurological Exam Neurological Exam: Alert, Awake, CN II-XII Intact, Oriented x3 - Psychiatric Exam Psychiatric exam: Normal Affect - Skin Skin Exam: Normal Color, Warm Assessment and Plan - Assessment and Plan (Free Text) Assessment: 1. Left ankle fracture . Consult Dr. Kaleb garvey. Note reviewed. Hold anticoagulation. INR supratherapeutic. PT, INR daily. OR in a week. bedside closed reduction done today. 2. Pain : morphine 2 mg IV Q 3 hr prn. 3. UA/urine culture to be sent 4. A-FIB : stable HR controlled. cozar 12.5 mg daily. ASA 81 mg daily. 5. HTN : BP controlled . 6. UA : positive . ceftrioxone 1 gm daily. ID consult. urine was not clean catch as per staff nurse. urine culture to be sent. 7. Cardiology consult for clearance for surgery.
[2017-05-30 07:43] LABS: BASO # 0.01 K/mm3 (0.0-2.0); BASO % 0.1 % (0.0-3.0); EOS # 0.2 (0.0-0.7); GRAN # 6.65 (1.4-6.5); GRAN % 66.5 % (50.0-68.0); HEMATOCRIT 34.7 % (36.0-48.0); LYMPH # 1.5 (1.2-3.4); LYMPH % 15.4 % (22.0-35.0); MEAN CELL VOLUME 88.5 fl (80.0-105.0); MEAN CORPUSCULAR HEMOGLOBIN 28.8 pg (25.0-35.0); MEAN CORPUSCULAR HGB CONC 32.6 g/dl (31.0-37.0); MEAN PLATELET VOLUME 10.7 fl (7.0-11.0); MONO # 1.6 (0.1-0.6); RED CELL DISTRIBUTION WIDTH 16.7 % (11.5-14.5)
[2017-05-30 07:53] LABS: INR 2.64 (0.93-1.08)
[2017-05-30 08:01] LABS: BLOOD UREA NITROGEN 16 mg/dL (7-21); CALCIUM 9.5 mg/dL (8.4-10.5); CARBON DIOXIDE 24 mmol/L (21-33); CHLORIDE 106 mmol/L (95-110); GFR AFRICAN-AMERICAN > 60; GLUCOSE,RANDOM 91 mg/dL (70-110); POTASSIUM 3.8 mmol/L (3.6-5.0); SODIUM 138 mmol/L (132-148)
--- NOTE | 2017-05-30 09:14 | US ---
PROCEDURE: Left lower extremity venous US HISTORY: Leg pain and swelling. Evaluate for DVT. PHYSICIAN(S): Teodoro Iyer MD. TECHNIQUE: Duplex sonography and color-flow Doppler with graded compression were used to evaluate the deep venous system of the left lower extremity. The tibial veins are not well seen FINDINGS: The visualized deep venous system of the left lower extremity is sonographically normal and compressible. Normal wave forms and augmentation are seen. There is no sonographic evidence for deep venous thrombosis in the visualized segments of the left lower extremity. IMPRESSION: 1. No sonographic evidence for deep venous thrombosis in the visualized segments of the left lower extremity.
[2017-05-30] MEDS: Morphine 2 mg/ml ISec IVP PRN ×3 (10:32→22:50)
[2017-05-30] MEDS: cefTRIAXone 1 gm 1 GM/100 ML BAG IVPB SCH (10:32)
--- NOTE | 2017-05-30 11:04 | CON ---
DATE: 05/30/2017 INDICATIONS: Preoperative evaluation, status post fracture of left ankle and coronary artery disease. HISTORY OF PRESENT ILLNESS: This is an 82-year-old woman admitted on the 12th after mechanical fall at home resulting in a left ankle fracture. She tripped while utilizing her walker. She did not experience loss of consciousness, dizziness, or vertigo. There was no chest pain, shortness of breath, orthopnea, PND, syncope, presyncope, palpitations, fever, chills, cough, sputum production, hemoptysis, abdominal pain, nausea, vomiting, diarrhea, constipation, or melena. She has undergone an orthopedic evaluation. She has had closed reduction of the ankle, open reduction is planned for about one week allowing for a soft tissue injury to heal. She is also being evaluated for urinary tract infection. PAST MEDICAL HISTORY: Notable for coronary artery disease with LAD stents. She underwent cardiac catheterization in 01/2017, at which time patent stents were noted. There was moderate CAD and normal LV function at that time. An echocardiogram in 11/2016 also demonstrated normal left ventricular function. There was [id number] tricuspid regurgitation and pulmonary hypertension with mild mitral regurgitation noted. There was a history of hypertension, hyperlipidemia, and atrial fibrillation. She is anticoagulated with warfarin. There is a history of arthritis. There was no history of myocardial infarction, congestive heart failure, stroke, TIA, diabetes, or gout. MEDICATIONS: Medications at the time of admission included losartan, pravastatin, warfarin, and nitrofurantoin. CURRENT MEDICATIONS: Include Colace, Cozaar, aspirin, Lipitor, Neurontin, morphine p.r.n., Protonix, Rocephin, and Tylenol p.r.n. SOCIAL HISTORY: She lives at home. She does not smoke. She does not drink alcohol significantly. She is limited in her mobility. She uses a walker. FAMILY HISTORY: Noncontributory. ALLERGIES: THERE WERE NO KNOWN MEDICATION ALLERGIES. REVIEW OF SYSTEMS: A 10-point review of systems is otherwise unremarkable except as noted above. PHYSICAL EXAMINATION: GENERAL: She is a well-developed elderly woman, lying in bed in 5R, in no acute distress. VITAL SIGNS: Pulse is 93, she is afebrile, blood pressure 150/88, respirations 20, and O2 saturation 96% on room air. HEENT: Reveals no neck vein distention, thyromegaly, or carotid bruits. Mucous membranes moist. Conjunctivae pink. NECK: Supple. LUNGS: Lung elizabeth are clear. HEART: Reveals an irregular rhythm. Normal first and second heart sounds. There is a systolic murmur along the left sternal border. ABDOMEN: Soft. Bowel sounds present. No mass, organomegaly, tenderness, rebound, or guarding. No CVA tenderness. No palpable abdominal aortic aneurysm. EXTREMITIES: Reveals no edema. The left ankle is casted. NEUROLOGIC: Awake, alert, and oriented. PSYCHIATRIC: Normal as to mood and affect. SKIN: Warm and dry. No rash or cellulitis. LABORATORY DATA AND IMAGING: X-ray reports are noted. There is a bimalleolar fracture of the left ankle. EKG demonstrates atrial fibrillation, nonspecific ST-wave changes essentially unchanged from a prior EKG. White count normal. Platelet count normal. Hemoglobin 11.3 and hematocrit 34.7. Latest PT 28.5 with INR 2.6, initial PTT was 43.1. Electrolytes, BUN, creatinine, blood sugar, and calcium unremarkable. Urinalysis abnormal as noted. IMPRESSION: Latrice Christine is an 82-year-old woman with a mechanical fall at home resulting in a left ankle fracture with soft tissue swelling. She has known coronary artery disease, status post coronary stents, valvular heart disease as noted, hypertension, hyperlipidemia, and chronic atrial fibrillation, on warfarin. PLAN: Warfarin is being held, the INR's are being monitored. Once the INR is less than 2, we can bridge with Lovenox prior to orthopedic surgery, which is planned for about 7 to 10 days. She has been cultured and evaluated for urinary tract infection. We will continue her usual medications including losartan and Lipitor. She is also getting Rocephin, Protonix, Neurontin, morphine p.r.n., aspirin, and Colace. She has an Orthopedic consultation and Infectious Disease consultation. I will review her old records. I will follow along with you. I will make additional recommendations based on her clinical course. Overall, she appears to be a mildly increase cardiac risk for planned elective orthopedic surgery in 7 to 10 days. Jose Roberto Jimenez MD [facility] # [id number] MTDD
[2017-05-30] MEDS ORDERED: Sodium Chloride 0.9% 1,000 ML IV SCH (17:26)
--- NOTE | 2017-05-30 20:17 | CON ---
DATE: 05/30/2017 LOCATION: The patient was seen earlier today in 563, bed 1. CHIEF COMPLAINT: Weakness from several days. HISTORY OF PRESENT ILLNESS: This is an 82-year-old female with past medical history of herpes zoster in the left side of her neck, history of left nephrolithiasis with a left ureteral stent, history of E. Coli urinary tract infection and coronary artery disease with history of PCI and the patient also has history of hypertension and dyslipidemia who was admitted on with diagnosis of left ankle fracture and unable to ambulate and infectious disease consultation requested for antibiotic choice. The patient has not had any fevers, any chest pain and no nausea and vomiting. No abdominal pain, diarrhea or constipation. PAST MEDICAL HISTORY: Significant for hypertension, dyslipidemia, coronary artery disease, herpes zoster of the left side of her neck and left nephrolithiasis, left ureteral stent, E. Coli bacteremia, E. Coli urinary tract infection, coronary artery disease. PAST SURGICAL HISTORY: Significant for the ureteral stent and PCI x2. ALLERGIES: THE PATIENT HAS NO KNOWN ALLERGIES. MEDICATIONS AT HOME: Include Coumadin, pravastatin, nitrofurantoin, gabapentin, aspirin. PHYSICAL EXAMINATION: VITAL SIGNS: The patient is in bed with temperature of 98, blood pressure is , heart rate of 101, respiratory rate of 20. HEENT: Unremarkable. NECK: Supple. LUNGS: Have decreased breath sounds. HEART: Normal S1, S2. ABDOMEN: Soft, nontender. EXTREMITIES: The patient does have a cast on the leg. LABORATORY DATA: Reveals a white count of 10,000, hemoglobin of 11, platelets of 165. Coagulation is noted. Chemistries reveals a BUN of 15, creatinine of 0.5. Urinalysis has too numerous to count wbc's, many bacteria. Urine culture is pending. REVIEW OF ORDERS: Reveals the patient to be on ceftriaxone and Dr. Daily consultation is reviewed and Dr. Hilton's consultation is reviewed. ASSESSMENT AND PLAN: This is an 82-year-old female with herpes zoster left-side of her neck and by history; history of left nephrolithiasis, ureteral stent; Escherichia coli urinary tract infection in the past and with Escherichia coli in the blood in 11/2016 and coronary artery disease, hypertension, dyslipidemia, presenting now with mechanical fall with a fracture and positive urinalysis. I agree with ceftriaxone, pending urine culture, and we will make further recommendation upon availability of urine culture. Continue ceftriaxone. Josh Omer MD
--- NOTE | 2017-05-30 22:39 | PN ---
DATE: SUBJECTIVE: The patient is an 82-year-old, seen and examined, lying in bed, complain of pain in the right foot. The patient denies any nausea, vomiting. No diarrhea. PHYSICAL EXAMINATION: VITAL SIGNS: She is afebrile, pulse 80, respiration 20, blood pressure 162/79. LUNGS: Bilateral fair airflow. No rhonchi or crackles. HEART: S1 and S2 audible. ABDOMEN: Soft, nontender. No rebound. No guarding. NEUROLOGIC: She is awake, alert, oriented, and communicative. EXTREMITIES: Her left ankle is in the cast, unable to move left extremity. LABORATORY DATA: WBC 10.0, hemoglobin 11.3, hematocrit 34.7, platelets 165, PT 28.5. INR 2.64. Chemistry: Sodium 138, potassium 3.9, chloride 106, CO2 of 24, BUN 16, creatinine 0.5, blood sugar of 91. Her urine is positive for Gram-negative rods and Gram-positive cocci, identification to follow, bilateral leg Doppler, no sonographic evidence of DVT and x-ray of the ankle shows improvement in the fracture dislocation of the left ankle. The patient has external reduction. The plan is to do surgery next week. ASSESSMENT: 1. Status post fall. 2. Left ankle fracture. 3. Chronic atrial fibrillation. 4. Coronary artery disease, status post angioplasty. 5. Hypertension. 6. Hyperlipidemia. 7. Chronic atrial fibrillation. 8. Supratherapeutic PT/INR. PLAN: Currently, the patient is on analgesic. She is getting Rocephin for her UTI. She is on IV fluid. Her oral intake is fair. We will cut down her fluid to 50 mL per hour. Follow up her PT/INR. Follow up her CBC and CMP. Awaiting TCU acceptance. Plan for surgery next week once the swelling go down. Keli Arita MD
[2017-05-31 07:17] VITALS: BP 177/99; PULSE 97; RESP 19; TEMP 99.8; O2SAT 94
[2017-05-31 07:49] LABS: BASO # 0.03 K/mm3 (0.0-2.0); BASO % 0.3 % (0.0-3.0); EOS # 0.1 (0.0-0.7); EOS % 1.2 % (1.5-5.0); GRAN # 6.49 (1.4-6.5); GRAN % 66.3 % (50.0-68.0); HEMATOCRIT 32.2 % (36.0-48.0); LYMPH # 1.6 (1.2-3.4); LYMPH % 16.1 % (22.0-35.0); MEAN CELL VOLUME 88.7 fl (80.0-105.0); MEAN CORPUSCULAR HEMOGLOBIN 28.9 pg (25.0-35.0); MEAN CORPUSCULAR HGB CONC 32.6 g/dl (31.0-37.0); MEAN PLATELET VOLUME 10.6 fl (7.0-11.0); MONO # 1.6 (0.1-0.6); MONO % 16.1 % (1.0-6.0); RED CELL DISTRIBUTION WIDTH 16.5 % (11.5-14.5); WHITE BLOOD COUNT 9.8 10^3/ul (4.5-11.0)
[2017-05-31 08:02] LABS: ALB/GLOB RATIO 1.1 (1.1-1.8); ALKALINE PHOSPHATASE 90 U/L (38-126); ALT/SGPT 19 U/L (7-56); AST/SGOT 20 U/L (14-36); BILIRUBIN,TOTAL 0.9 mg/dL (0.2-1.3); BLOOD UREA NITROGEN 13 mg/dL (7-21); CALCIUM 9.3 mg/dL (8.4-10.5); CARBON DIOXIDE 25 mmol/L (21-33); CHLORIDE 104 mmol/L (98-107); GFR AFRICAN-AMERICAN > 60; GLUCOSE,RANDOM 105 mg/dL (70-110); SODIUM 137 mmol/L (132-148); TOTAL PROTEIN 6.8 g/dL (5.8-8.3)
[2017-05-31] MEDS: Morphine 2 mg/ml ISec IVP PRN (08:12)
[2017-05-31 08:19] LABS: INR 1.85 (0.93-1.08)
[2017-05-31] MEDS: cefTRIAXone 1 gm 1 GM/100 ML BAG IVPB SCH (10:05)
--- NOTE | 2017-05-31 14:50 | PN ---
DATE: 05/31/2017 SUBJECTIVE: The patient is in bed in no acute distress. PHYSICAL EXAMINATION: VITAL SIGNS: Temperature is 99, blood pressure is 170/90, respiratory rate of 20, heart rate of 97. HEENT: Unremarkable. NECK: Supple. LUNGS: Decreased breath sounds. HEART: Normal S1 and S2. ABDOMEN: Soft, nontender. LABORATORY EXAMINATION: Reveals a white count of 9.8, hemoglobin of 10, platelets of 155. BUN of 13, creatinine of 0.5. Urinalysis is noted, too numerous to count wbc's, many bacteria. Microbiology reveals the urine culture is gram-negative nghia and gram-positive cocci, identified as Klebsiella pneumoniae and Streptococcus anginosus. The Klebsiella pneumoniae is a pansensitive Klebsiella as is the strep in the urine. REVIEW OF ORDERS: Reveals the patient to be on ceftriaxone, and Dr. Arita's note is reviewed from yesterday. ASSESSMENT AND PLAN: An 82-year-old female seen earlier today in 563, bed 1 with history of herpes zoster in the left side of her neck and history of nephrolithiasis, ureteral stent, Escherichia coli, urinary tract infection in the past. Escherichia coli in the blood in 11/2016 with coronary artery disease, hypertension, and dyslipidemia, presenting now with status post mechanical fall and fracture with positive urine culture, on ceftriaxone. Urine culture is positive for Klebsiella and Streptococcus. We will request a repeat urine culture, and this patient is status post fall with a left ankle fracture and chronic atrial fibrillation and coronary artery disease status post angioplasty, hypertension, and plan for surgery next week. Josh Omer MD
--- NOTE | 2017-06-01 10:20 | DS ---
HISTORY OF PRESENT ILLNESS: The patient is an 82-year-old, seen and examined, lying in bed, seems to be comfortable while at rest. PHYSICAL EXAMINATION: VITAL SIGNS: She is afebrile, pulse 97, respirations 19, blood pressure 170/99. LUNGS: Bilateral fair airflow. No rhonchi or crackle. HEART: S1 and S2 audible. ABDOMEN: Soft, obese, nontender. No rebound. No guarding. EXTREMITIES: Left foot and ankle is in the cast. NEUROLOGIC: The patient is awake, alert, oriented. LABORATORY DATA: WBC is 9.8, hemoglobin 10.5, hematocrit 32.2, platelet of 155. PT 20 and INR1.85. Chemistry; sodium 137, potassium 4.0, chloride 104, CO2 of 25, BUN 13, creatinine 0.5, blood sugar of 105. Urine culture positive for Klebsiella and Streptococcus aeruginosa. ASSESSMENT: 1. Status post fall. 2. Left ankle fracture. 3. Coronary artery disease, status post angioplasty. 4. Hypertension. 5. Chronic atrial fibrillation. 6. Klebsiella pneumoniae urinary tract infection. PLAN: The patient is clinically stable. She will be transferred to TCU today and she will be schedule to have surgery by the end of next week when the swelling of soft tissue improves, she will be taken to OR. Keli Arita MD
== END 2017-05-31 12:37 | DRG 563 ==
LOC: ED 11:27 → ERH 15:34 → 5RNO 18:19
PROVIDERS: ADMIT Internal Medicine Medical Oncology; ATTEND Internal Medicine Nephrology
PROC: 0QSMXZZ Reposition Left Tarsal, External Approach (ICD-10-PCS; principal; 2017-05-28)
DX: S82.842A Displaced bimalleolar fracture of left lower leg, initial encounter for closed fracture (principal); L89.222 Pressure ulcer of left hip, stage 2; I11.0 Hypertensive heart disease with heart failure; I50.9 Heart failure, unspecified; N39.0 Urinary tract infection, site not specified; I48.2 Chronic atrial fibrillation; I08.1 Rheumatic disorders of both mitral and tricuspid valves; W18.30XA Fall on same level, unspecified, initial encounter; I27.20 Pulmonary hypertension, unspecified; E78.5 Hyperlipidemia, unspecified; I25.10 Atherosclerotic heart disease of native coronary artery without angina pectoris; M48.061 Spinal stenosis, lumbar region without neurogenic claudication; B96.1 Klebsiella pneumoniae [K. pneumoniae] as the cause of diseases classified elsewhere; R79.1 Abnormal coagulation profile; Y92.009 Unspecified place in unspecified non-institutional (private) residence as the place of occurrence of the external cause; T45.515A Adverse effect of anticoagulants, initial encounter; Z79.82 Long term (current) use of aspirin; Z79.899 Other long term (current) drug therapy; Z87.440 Personal history of urinary (tract) infections; Z87.442 Personal history of urinary calculi; Z95.5 Presence of coronary angioplasty implant and graft; M19.90 Unspecified osteoarthritis, unspecified site; B95.4 Other streptococcus as the cause of diseases classified elsewhere

== ENCOUNTER 2017-05-31 12:37 | Inpatient (IN) | payer MEDICARE ==
[2017-05-31 15:07] VITALS: BMI 31.1
[2017-05-31] MEDS: Sodium Chloride 0.9% 1,000 ML IV SCH (15:33)
[2017-05-31] MEDS: Morphine 2 mg/ml ISec IVP PRN (19:33)
[2017-06-01] MEDS: Morphine 2 mg/ml ISec IVP PRN ×6 (00:23→23:40)
[2017-06-01] MEDS: cefTRIAXone 1 gm 1 GM/100 ML BAG IVPB SCH (05:17)
[2017-06-01] MEDS: Sodium Chloride 0.9% 1,000 ML IV SCH ×2 (06:12→08:44)
--- NOTE | 2017-06-01 12:23 | CP.PCM.CON ---
History of Present Illness - History of Present Illness History of Present Illness: Consult requested by Dr Narinder Lazo Reason: Goals of care/advance care planning 82 year old female with history of CAD,atrial fibrillation and HTN who was admitted to acute care after suffering a mechanical fall at home. She sustained a left ankle fracture. Labs on admission indicated the patient had Klebsiella UTI. She has since been transitioned to the [facility] for completion of antibiotic therapy deconditioning. She is scheduled for left ankle surgery next week PMHx: HTN, CAD s/p angioplasty, dyslipidemia,UTI, ureteral stone, pneumonia, syncope. Social History:Non smoker, no alcohol or drug use lives with spouse. Family History: Non contributory Advance Care Planing: The patient does not have an Advanced Directive. Review of Systems: As per HPI, all other systems reviewed and are normal Past Patient History - Infectious Disease Hx of Infectious Diseases: None - Past Social History Smoking Status: Never Smoked - CARDIAC Hx Cardiac Disorders: Yes Hx Congestive Heart Failure: Yes Hx Hypercholesterolemia: Yes Hx Hypertension: Yes - PULMONARY Hx Chronic Obstructive Pulmonary Disease (COPD): No - NEUROLOGICAL HX Cerebrovascular Accident: No - HEENT Hx HEENT Problems: No - RENAL Hx Chronic Kidney Disease: No - ENDOCRINE/METABOLIC Hx Diabetes Mellitus Type 1: No Hx Diabetes Mellitus Type 2: No Hx Hypothyroidism: No - HEMATOLOGICAL/ONCOLOGICAL Hx Blood Disorders: Yes Hx Shingles: Yes ((2016)left gnosticism around to neck) - INTEGUMENTARY Hx Dermatological Problems: Yes Other/Comment: Shingles on left side of neck on 04/14/16. 5-17 LEFT HIP WITH IRREGULARLY SHAPED STAGE 2 PRESSURE ULCER .MEASURES 1.5 X 2.5 CM. RED AREA. MILD SEROUS DRAINAGE.01-20-17 HEALING .FLAT REDDENED AREA.DRY.3 X 4 CM . BILATERAL LE DARK TO LIGHT BROWNISH SKIN. DISCOLORATION.EDEMA +1.PITTING - MUSCULOSKELETAL/RHEUMATOLOGICAL Hx Arthritis: Yes - GASTROINTESTINAL Hx Gastrointestinal Disorders: (pt can't recall last bm) - GENITOURINARY/GYNECOLOGICAL Hx Urinary Tract Infection: Yes - PSYCHIATRIC Hx Psychophysiologic Disorder: No Hx Emotional Abuse: No Hx Physical Abuse: No Hx Substance Use: No - SURGICAL HISTORY Hx Coronary Stent: Yes (X2) Other/Comment: CARDIAC STENT X 2 - ANESTHESIA Hx Anesthesia Reactions: No Hx Malignant Hyperthermia: No Meds Allergies/Adverse Reactions: Allergies Allergy/AdvReac Type Severity Reaction Status Date / Time No Known Allergies Allergy Verified 04/15/17 08:43 - Medications Medications: Current Medications Acetaminophen (Tylenol 325mg Tab) 650 mg PO Q6H PRN; Protocol PRN Reason: Fever >100.4 F Last Admin: 06/01/17 05:32 Dose: 650 mg Aspirin (Ecotrin) 81 mg PO 0800 [facility] PRN Reason: Protocol Last Admin: 06/01/17 08:43 Dose: 81 mg Atorvastatin Calcium (Lipitor) 10 mg PO DIN [facility] PRN Reason: Protocol Last Admin: 05/31/17 17:33 Dose: 10 mg Docusate Sodium (Colace) 100 mg PO BID [facility] PRN Reason: Protocol Last Admin: 06/01/17 10:19 Dose: 100 mg Gabapentin (Neurontin) 300 mg PO TID [facility] PRN Reason: Protocol Last Admin: 06/01/17 10:19 Dose: 300 mg Ceftriaxone Sodium (Rocephin 1 Gram Ivpb) 1 gm in 100 mls @ 100 mls/hr IVPB 0600 [facility] PRN Reason: Protocol Last Admin: 06/01/17 05:17 Dose: 100 mls/hr Losartan Potassium (Cozaar) 12.5 mg PO DAILY [facility] PRN Reason: Protocol Last Admin: 06/01/17 10:19 Dose: 12.5 mg Morphine Sulfate (Morphine) 2 mg IVP Q3H PRN; Protocol PRN Reason: Pain, severe (8-10) Last Admin: 06/01/17 08:46 Dose: 2 mg Pantoprazole Sodium (Protonix Ec Tab) 40 mg PO 0600 [facility] Physical Exam - Constitutional Appears: No Acute Distress - Head Exam Head Exam: NORMOCEPHALIC - Eye Exam Eye Exam: Normal appearance, PERRL - ENT Exam ENT Exam: Mucous Membranes Moist, Normal Oropharynx - Neck Exam Neck exam: Positive for: Normal Inspection - Respiratory Exam Respiratory Exam: Clear to Auscultation Bilateral, NORMAL BREATHING PATTERN - Cardiovascular Exam Cardiovascular Exam: REGULAR RHYTHM, +S1, +S2 - GI/Abdominal Exam GI & Abdominal Exam: Normal Bowel Sounds, Soft - Extremities Exam Extremities exam: Positive for: pedal pulses present - Back Exam Back exam: NORMAL INSPECTION - Neurological Exam Neurological exam: Alert, Oriented x3 - Skin Skin Exam: Dry, Pallor - Additional Findings Additional findings: Palliative performance scale raing 50% Results - Vital Signs Recent Vital Signs: Last Vital Signs Temp 98.1 F 06/01/17 06:32 Pulse 73 06/01/17 10:19 Resp 18 06/01/17 06:00 BP 163/77 H 06/01/17 10:19 Pulse Ox 96 06/01/17 06:00 Assessment & Plan - Assessment and Plan (Free Text) Assessment: 82 year old female with history of CAD,HTN, atrial fibrillation who suffered a left ankle fracture after falling at home. She also has Klebsiella UTI The patient is seen in [facility], lying in bed with left ankle elevated. Her is at bedside. She reports no pain or discomfort. She states that when she has discomfort she is given morphine which alleviates her pain. She denies constipation. Palliative ser vies introduced as a support system. When asked if she had an advanced directive, the patient stated she did not. I explained the rationale and benefits of advance care planning. The patient states she is not interested in discussing advance care planning at this time.Psychosocial support given. Time spent in goals of care and advance care planning discussion, 20 minutes Plan: Palliative support Will assist in establishing future goals of care and advance care planning
--- NOTE | 2017-06-01 13:26 | PN ---
DATE: 06/01/2017 SUBJECTIVE: The patient has no complaints of any chest pain, no shortness of breath, no headaches, no dizziness. She is coming to the transitional care unit for rehab. PHYSICAL EXAMINATION: VITAL SIGNS: Temperature is 98.1, pulse of 89, blood pressure of 170/84, respirations 18. GENERAL: The patient is lying in bed, flat, comfortable. HEENT: No oral lesion. Anicteric sclerae. Moist mucosa. NECK: No JVD, adenopathy, or thyromegaly. CARDIOVASCULAR: S1 and S2, regular. No murmurs, rubs, or gallops. LUNGS: Clear to auscultation bilaterally. No wheeze, rales, or rhonchi. ABDOMEN: Bowel sounds are positive, soft, nontender and nondistended. EXTREMITIES: No cyanosis, clubbing or edema. ASSESSMENT: 1. Left ankle fracture. 2. Fall. 3. Atrial fibrillation. 4. Hypertension. 5. Dyslipidemia. 6. Coronary artery disease. 7. Coagulopathy secondary to Coumadin toxicity. PLAN: The patient is currently comfortable, is on losartan for hypertension, is going to continue with aspirin. She is on Morphine for pain as needed. She is on Neurontin for neuropathy. She is receiving Protonix; I will change her IV Protonix to p.o. Protonix. She is waiting to go to the OR for surgery. She is on Rocephin for antibiotics. She had a urine culture that had been positive, that is sensitive to Rocephin. I will discontinue her IV fluid as well. Moreno Lazo MD
--- NOTE | 2017-06-01 19:00 | CP.PCM.CON ---
History of Present Illness - History of Present Illness History of Present Illness: 81 year old female with PMH of was initially admitted in [facility] because of fracture of the left ankle. Surgery has been delayed to let the soft tissues heal. She is also noted to have bacteria in the urine and is currently being treated for UTI. She is now transferred to [facility] for continued medical therapy and some physical therapy. Infectious Diseases consult is requested to continue her antibiotic therapy. She denies fever or chills, no nausea or vomiting, no chest pain, no SOB, no cough or colds, no headache or dizziness, no abdominal pain, no diarrhea, no dysuria. Review of Systems - Review of Systems All systems: reviewed and no additional remarkable complaints except (as per HPI ) Past Patient History - Infectious Disease Hx of Infectious Diseases: None - Past Social History Smoking Status: Never Smoked - CARDIAC Hx Cardiac Disorders: Yes (Afib) Hx Congestive Heart Failure: Yes Hx Hypertension: Yes - PULMONARY Hx Chronic Obstructive Pulmonary Disease (COPD): No - NEUROLOGICAL HX Cerebrovascular Accident: No - HEENT Hx HEENT Problems: No - RENAL Hx Chronic Kidney Disease: No - ENDOCRINE/METABOLIC Hx Diabetes Mellitus Type 1: No Hx Diabetes Mellitus Type 2: No Hx Hypothyroidism: No - HEMATOLOGICAL/ONCOLOGICAL Hx Blood Disorders: Yes Hx Shingles: Yes ((2016)left protestant around to neck) - INTEGUMENTARY Hx Dermatological Problems: Yes Other/Comment: Shingles on left side of neck on 04/14/16. 5--17 LEFT HIP WITH IRREGULARLY SHAPED STAGE 2 PRESSURE ULCER .MEASURES 1.5 X 2.5 CM. RED AREA. MILD SEROUS DRAINAGE.01-20-17 HEALING .FLAT REDDENED AREA.DRY.3 X 4 CM . BILATERAL LE DARK TO LIGHT BROWNISH SKIN. DISCOLORATION.EDEMA +1.PITTING - MUSCULOSKELETAL/RHEUMATOLOGICAL Hx Falls: Yes - GASTROINTESTINAL Hx Gastrointestinal Disorders: (pt can't recall last bm) - GENITOURINARY/GYNECOLOGICAL Hx Urinary Tract Infection: Yes - PSYCHIATRIC Hx Psychophysiologic Disorder: No Hx Emotional Abuse: No Hx Physical Abuse: No Hx Substance Use: No - SURGICAL HISTORY Hx Coronary Stent: Yes (X2) Other/Comment: CARDIAC STENT X 2 - ANESTHESIA Hx Anesthesia Reactions: No Hx Malignant Hyperthermia: No Meds Allergies/Adverse Reactions: Allergies Allergy/AdvReac Type Severity Reaction Status Date / Time No Known Allergies Allergy Verified 04/15/17 08:43 - Medications Medications: Current Medications Acetaminophen (Tylenol 325mg Tab) 650 mg PO Q6H PRN; Protocol PRN Reason: Fever >100.4 F Last Admin: 06/01/17 05:32 Dose: 650 mg Aspirin (Ecotrin) 81 mg PO 0800 [facility] PRN Reason: Protocol Last Admin: 06/01/17 08:43 Dose: 81 mg Atorvastatin Calcium (Lipitor) 10 mg PO DIN [facility] PRN Reason: Protocol Last Admin: 05/31/17 17:33 Dose: 10 mg Docusate Sodium (Colace) 100 mg PO BID [facility] PRN Reason: Protocol Last Admin: 05/31/17 17:33 Dose: 100 mg Gabapentin (Neurontin) 300 mg PO TID [facility] PRN Reason: Protocol Last Admin: 05/31/17 17:33 Dose: 300 mg Ceftriaxone Sodium (Rocephin 1 Gram Ivpb) 1 gm in 100 mls @ 100 mls/hr IVPB 0600 [facility] PRN Reason: Protocol Last Admin: 06/01/17 05:17 Dose: 100 mls/hr Sodium Chloride (Sodium Chloride 0.9%) 1,000 mls @ 50 mls/hr IV .Q20H [facility] Last Admin: 06/01/17 08:44 Dose: 50 mls/hr Losartan Potassium (Cozaar) 12.5 mg PO DAILY [facility] PRN Reason: Protocol Morphine Sulfate (Morphine) 2 mg IVP Q3H PRN; Protocol PRN Reason: Pain, severe (8-10) Last Admin: 06/01/17 08:46 Dose: 2 mg Pantoprazole Sodium (Protonix Inj) 40 mg IVP 0600 [facility] PRN Reason: Protocol Last Admin: 06/01/17 05:16 Dose: 40 mg Physical Exam - Constitutional Appears: Non-toxic, No Acute Distress - Head Exam Head Exam: NORMAL INSPECTION - Neck Exam Neck exam: Negative for: Meningismus - Respiratory Exam Respiratory Exam: Decreased Breath Sounds - Cardiovascular Exam Cardiovascular Exam: +S1, +S2 - GI/Abdominal Exam GI & Abdominal Exam: Soft. absent: Tenderness Results - Vital Signs Recent Vital Signs: Last Vital Signs Temp 98.1 F 06/01/17 06:32 Pulse 89 06/01/17 06:00 Resp 18 06/01/17 06:00 BP 170/84 H 06/01/17 06:00 Pulse Ox 96 06/01/17 06:00 Assessment & Plan - Assessment and Plan (Free Text) Plan: Assessment UTI with Klebsiella and Strep anginosus left ankle fracture after a fall history of sepsis due to right lower lobe healthcare-associated pneumonia with possible gram positive cocci and/or gram negative bacilli history of E. coli bacteremia associated with UTI and left nephrolithiasis S/P left ureteral stent placement history of acute transient ischemic attack with transient left sided weakness history of urinary tract infection with E. coli history of herpes zoster on the left side of the neck and left ear and post- herpetic neuralgia CAD S/P PCI HTN dyslipidemia Plan continue Rocephin pending repeat urine cx and will get blood cx as well plan is to delay surgery for the left ankle for now will monitor clinically
[2017-06-02] MEDS: cefTRIAXone 1 gm 1 GM/100 ML BAG IVPB SCH (05:49)
[2017-06-02] MEDS: Pantoprazole 40 mg EC Tab PO SCH (05:50)
[2017-06-02] MEDS: Morphine 2 mg/ml ISec IVP PRN ×3 (08:07→19:39)
--- NOTE | 2017-06-02 12:48 | CP.PCM.PN ---
Subjective - Date & Time of Evaluation Date of Evaluation: 06/02/17 Time of Evaluation: 11:35 - Subjective Subjective: Had low grade temperatures but did not persist, not in distress. Objective - Vital Signs/Intake and Output Vital Signs (last 24 hours): Temp Pulse Resp BP Pulse Ox 100.1 F H 77 15 174/88 H 98 06/02/17 05:53 06/01/17 16:00 06/01/17 16:00 06/01/17 16:00 06/01/17 10:00 Intake and Output: 06/02/17 06/02/17 06:59 18:59 Output Total 1000 Balance -1000 - Medications Medications: Current Medications Acetaminophen (Tylenol 325mg Tab) 650 mg PO Q6H PRN; Protocol PRN Reason: Fever >100.4 F Last Admin: 06/02/17 05:53 Dose: 650 mg Aspirin (Ecotrin) 81 mg PO 0800 [facility] PRN Reason: Protocol Last Admin: 06/02/17 08:08 Dose: 81 mg Atorvastatin Calcium (Lipitor) 10 mg PO DIN JAMES PRN Reason: Protocol Last Admin: 06/01/17 17:47 Dose: 10 mg Docusate Sodium (Colace) 100 mg PO BID JAMES PRN Reason: Protocol Last Admin: 06/01/17 17:48 Dose: 100 mg Gabapentin (Neurontin) 300 mg PO TID JAMES PRN Reason: Protocol Last Admin: 06/01/17 17:48 Dose: 300 mg Ceftriaxone Sodium (Rocephin 1 Gram Ivpb) 1 gm in 100 mls @ 100 mls/hr IVPB 0600 JAMES PRN Reason: Protocol Last Admin: 06/02/17 05:49 Dose: 100 mls/hr Losartan Potassium (Cozaar) 12.5 mg PO DAILY JAMES PRN Reason: Protocol Last Admin: 06/01/17 10:19 Dose: 12.5 mg Morphine Sulfate (Morphine) 2 mg IVP Q3H PRN; Protocol PRN Reason: Pain, severe (8-10) Last Admin: 06/02/17 08:07 Dose: 2 mg Pantoprazole Sodium (Protonix Ec Tab) 40 mg PO 0600 [facility] Last Admin: 06/02/17 05:50 Dose: 40 mg - Constitutional Appears: Non-toxic - Head Exam Head Exam: NORMAL INSPECTION - Respiratory Exam Respiratory Exam: Decreased Breath Sounds - Cardiovascular Exam Cardiovascular Exam: +S1, +S2 - GI/Abdominal Exam GI & Abdominal Exam: Soft. absent: Tenderness Assessment and Plan - Assessment and Plan (Free Text) Plan: Assessment UTI with Klebsiella and Strep anginosus left ankle fracture after a fall history of sepsis due to right lower lobe healthcare-associated pneumonia with possible gram positive cocci and/or gram negative bacilli history of E. coli bacteremia associated with UTI and left nephrolithiasis S/P left ureteral stent placement history of acute transient ischemic attack with transient left sided weakness history of urinary tract infection with E. coli history of herpes zoster on the left side of the neck and left ear and post- herpetic neuralgia CAD S/P PCI HTN dyslipidemia Plan continue Rocephin pending repeat urine cx and follow up blood cx as well plan is to delay surgery for the left ankle for now will continue to monitor clinically
[2017-06-02] MEDS: Enoxaparin 100 mg Syringe SC SCH (21:47)
[2017-06-02] MEDS: Oxycodone/Acetaminophen 5/325 mg Tab PO PRN (21:48)
[2017-06-02] MEDS ORDERED: Enoxaparin 40 mg Syringe SC SCH (22:00)
[2017-06-03 05:59] LABS: HEMATOCRIT 31.8 % (36.0-48.0); MEAN CELL VOLUME 89.6 fl (80.0-105.0); MEAN CORPUSCULAR HEMOGLOBIN 29.3 pg (25.0-35.0); MEAN CORPUSCULAR HGB CONC 32.7 g/dl (31.0-37.0); MEAN PLATELET VOLUME 9.8 fl (7.0-11.0); RED CELL DISTRIBUTION WIDTH 16.6 % (11.5-14.5); WHITE BLOOD COUNT 9.2 10^3/ul (4.5-11.0)
[2017-06-03] MEDS: Morphine 2 mg/ml ISec IVP PRN ×4 (06:07→23:07)
[2017-06-03 06:09] LABS: INR 1.11 (0.93-1.08)
[2017-06-03] MEDS: Pantoprazole 40 mg EC Tab PO SCH (06:09)
[2017-06-03 06:11] LABS: ALB/GLOB RATIO 1.1 (1.1-1.8); ALKALINE PHOSPHATASE 124 U/L (38-126); ALT/SGPT 46 U/L (7-56); AST/SGOT 30 U/L (14-36); BLOOD UREA NITROGEN 17 mg/dL (7-21); CALCIUM 9.7 mg/dL (8.4-10.5); CARBON DIOXIDE 28 mmol/L (21-33); CHLORIDE 102 mmol/L (95-110); GFR AFRICAN-AMERICAN > 60; GLUCOSE,RANDOM 102 mg/dL (70-110); POTASSIUM 4.4 mmol/L (3.6-5.0); SODIUM 138 mmol/L (132-148); TOTAL PROTEIN 6.7 g/dL (5.8-8.3)
[2017-06-03] MEDS: Oxycodone/Acetaminophen 5/325 mg Tab PO PRN ×2 (07:05→20:28)
--- NOTE | 2017-06-03 09:13 | PN ---
DATE: 06/03/2017 SUBJECTIVE: The patient has no complaints of any chest pain, no shortness of breath, and no headaches. She states that she does have pain in the ankle, but it does improve with pain medications. PHYSICAL EXAMINATION: VITAL SIGNS: Temperature is 99.3, pulse of 91, blood pressure 173/83, and respirations 15. GENERAL: The patient is lying in bed, flat, comfortable. HEENT: No oral lesion. Anicteric sclerae. Moist mucosa. NECK: No JVD, adenopathy, or thyromegaly. CARDIOVASCULAR: S1 and S2, regular. No murmurs, rubs, or gallops. LUNGS: Clear to auscultation bilaterally. No wheeze, rales, or rhonchi. ABDOMEN: Bowel sounds are positive, soft, nontender and nondistended. EXTREMITIES: No cyanosis, clubbing or edema. LABORATORY DATA: White count of 9.2, hemoglobin of 10.4, and creatinine of 0.6. ASSESSMENT: 1. Left ankle fracture with lateral dislocation of the talus. 2. Fall. 3. Atrial fibrillation, on anticoagulation. 4. Hypertension. 5. Dyslipidemia. 6. Coronary artery disease. 7. Coagulopathy secondary to Coumadin toxicity improved. PLAN: The patient is currently comfortable. She had a blood pressure that is elevated most likely secondary to pain. She is on losartan for . The patient is on aspirin daily. She is on Lipitor for dyslipidemia, I have transitioned her over to Lovenox in anticipation for possible surgery. The patient is on morphine IV for pain and she is also on Percocet p.o. for moderate pain. She is on Protonix daily. I did speak to the patient's daughter yesterday, she is concerned about the surgery and had questions about the surgical technique as well as what type of ankle surgery the patient is going to have. I advised her to speak with Dr. Hilton as this is outside of my area of expertise. I did leave message for Dr. Hilton to speak with the patient's daughter. We will anticipate the patient to go to a subacute rehab. Moreno Lazo MD [facility] # [id number]
[2017-06-03] MEDS ORDERED: Enoxaparin 40 mg Syringe SC SCH (10:00)
[2017-06-03] MEDS: Enoxaparin 100 mg Syringe SC SCH ×2 (11:14→22:15)
--- NOTE | 2017-06-03 12:26 | CP.PCM.PN ---
Subjective - Date & Time of Evaluation Date of Evaluation: 06/03/17 Time of Evaluation: 11:20 - Subjective Subjective: Comfortable, no fevers, not in distress, less pain in the ankle. Objective - Vital Signs/Intake and Output Vital Signs (last 24 hours): Temp Pulse Resp BP Pulse Ox 99.3 F 91 H 15 173/83 H 97 06/02/17 17:06 06/03/17 07:02 06/02/17 17:06 06/03/17 07:02 06/02/17 10:00 Intake and Output: 06/03/17 06/03/17 06:59 18:59 Output Total 750 Balance -750 - Medications Medications: Current Medications Acetaminophen (Tylenol 325mg Tab) 650 mg PO Q6H PRN; Protocol PRN Reason: Fever >100.4 F Last Admin: 06/02/17 05:53 Dose: 650 mg Aspirin (Ecotrin) 81 mg PO 0800 [facility] PRN Reason: Protocol Last Admin: 06/03/17 08:57 Dose: 81 mg Atorvastatin Calcium (Lipitor) 10 mg PO DIN JAMES PRN Reason: Protocol Last Admin: 06/02/17 17:06 Dose: 10 mg Docusate Sodium (Colace) 100 mg PO BID JAMES PRN Reason: Protocol Last Admin: 06/02/17 17:06 Dose: 100 mg Enoxaparin Sodium (Lovenox) 90 mg SC Q12 JAMES PRN Reason: Protocol Last Admin: 06/02/17 21:47 Dose: 90 mg Gabapentin (Neurontin) 300 mg PO TID JAMES PRN Reason: Protocol Last Admin: 06/02/17 17:05 Dose: 300 mg Losartan Potassium (Cozaar) 12.5 mg PO DAILY JAMES PRN Reason: Protocol Last Admin: 06/02/17 11:17 Dose: 12.5 mg Morphine Sulfate (Morphine) 2 mg IVP Q3H PRN; Protocol PRN Reason: Pain, severe (8-10) Last Admin: 06/03/17 09:10 Dose: 2 mg Oxycodone/Acetaminophen (Percocet 5/325 Mg Tab) 1 tab PO Q4H PRN PRN Reason: Pain, moderate (4-7) Stop: 06/05/17 20:26 Last Admin: 06/03/17 07:05 Dose: 1 tab Pantoprazole Sodium (Protonix Ec Tab) 40 mg PO 0600 [facility] Last Admin: 06/03/17 06:09 Dose: 40 mg - Labs Labs: 06/03/17 05:30 06/03/17 05:30 PT 12.0 Seconds (9.9-11.8) H 06/03/17 05:30 INR 1.11 (0.93-1.08) H 06/03/17 05:30 - Constitutional Appears: Non-toxic, No Acute Distress - Head Exam Head Exam: NORMAL INSPECTION - ENT Exam ENT Exam: Mucous Membranes Moist - Neck Exam Neck Exam: absent: Meningismus - Respiratory Exam Respiratory Exam: Decreased Breath Sounds - Cardiovascular Exam Cardiovascular Exam: +S1, +S2 - GI/Abdominal Exam GI & Abdominal Exam: Soft. absent: Tenderness Assessment and Plan - Assessment and Plan (Free Text) Plan: Assessment UTI with Klebsiella and Strep anginosus left ankle fracture after a fall history of sepsis due to right lower lobe healthcare-associated pneumonia with possible gram positive cocci and/or gram negative bacilli history of E. coli bacteremia associated with UTI and left nephrolithiasis S/P left ureteral stent placement history of acute transient ischemic attack with transient left sided weakness history of urinary tract infection with E. coli history of herpes zoster on the left side of the neck and left ear and post- herpetic neuralgia CAD S/P PCI HTN dyslipidemia Plan continue Rocephin pending repeat urine cx; follow up blood cx are negative plan is to delay surgery for the left ankle for now will continue to monitor clinically
[2017-06-03 17:33] VITALS: O2SAT 96
[2017-06-03] MEDS ORDERED: Enoxaparin 30 mg Syringe SC ONE (20:14)
[2017-06-04] MEDS: Morphine 2 mg/ml ISec IVP PRN ×4 (04:00→23:30)
[2017-06-04] MEDS: Pantoprazole 40 mg EC Tab PO SCH (05:06)
[2017-06-04] MEDS: Oxycodone/Acetaminophen 5/325 mg Tab PO PRN (09:18)
[2017-06-04] MEDS: Enoxaparin 100 mg Syringe SC SCH ×2 (09:19→21:11)
[2017-06-04 10:59] VITALS: RESP 18; TEMP 98.7
--- NOTE | 2017-06-04 15:18 | RAD ---
PROCEDURE: Left Ankle Radiographs. HISTORY: C/O PAIN COMPARISON: Left ankle radiographs 05/28/2017 FINDINGS: BONES: Spiral impacted fracture of the distal fibula is again appreciated as well as a fracture through the medial malleolus which is essentially transverse. Fracture subluxation is worsened in that lateral translation of the talus is now measured at approximately 12 mm compared to 9 mm previously with the medial mortise quite narrowed. Anterior posterior positioning is adequate. No definite callus formation is appreciated at the fracture sites. JOINTS: Please see discussion above. SOFT TISSUES: Mild local soft tissue edema is appreciated once again. OTHER FINDINGS: None. IMPRESSION: Fracture subluxation of the left ankle is again appreciate without fracture appearing stable however subluxation of the talus laterally is increased to 12 mm from 9 mm as discussed above. No interval new fracture appreciable.
--- NOTE | 2017-06-04 19:57 | CP.PCM.PN ---
Subjective - Date & Time of Evaluation Date of Evaluation: 06/04/17 Time of Evaluation: 09:45 - Subjective Subjective: Comfortable in bed, less pain in the left foot, no fevers overnight. Objective - Vital Signs/Intake and Output Vital Signs (last 24 hours): Temp Pulse Resp BP Pulse Ox 99.2 F 86 16 167/92 H 96 06/04/17 06:00 06/04/17 06:00 06/04/17 06:00 06/04/17 06:00 06/04/17 06:00 Intake and Output: 06/04/17 06/04/17 06:59 18:59 Intake Total 420 Output Total 1050 400 Balance -630 -400 - Medications Medications: Current Medications Acetaminophen (Tylenol 325mg Tab) 650 mg PO Q6H PRN; Protocol PRN Reason: Fever >100.4 F Last Admin: 06/02/17 05:53 Dose: 650 mg Aspirin (Ecotrin) 81 mg PO 0800 JAMES PRN Reason: Protocol Last Admin: 06/04/17 08:13 Dose: 81 mg Atorvastatin Calcium (Lipitor) 10 mg PO DIN JAMES PRN Reason: Protocol Last Admin: 06/03/17 18:11 Dose: 10 mg Docusate Sodium (Colace) 100 mg PO BID JAMES PRN Reason: Protocol Last Admin: 06/03/17 18:10 Dose: 100 mg Enoxaparin Sodium (Lovenox) 90 mg SC Q12 JAMES PRN Reason: Protocol Last Admin: 06/03/17 22:15 Dose: 90 mg Gabapentin (Neurontin) 300 mg PO TID JAMES PRN Reason: Protocol Last Admin: 06/03/17 18:11 Dose: 300 mg Losartan Potassium (Cozaar) 12.5 mg PO DAILY JAMES PRN Reason: Protocol Last Admin: 06/03/17 11:13 Dose: 12.5 mg Morphine Sulfate (Morphine) 2 mg IVP Q3H PRN; Protocol PRN Reason: Pain, severe (8-10) Last Admin: 06/04/17 08:16 Dose: 2 mg Oxycodone/Acetaminophen (Percocet 5/325 Mg Tab) 1 tab PO Q4H PRN PRN Reason: Pain, moderate (4-7) Stop: 06/05/17 20:26 Last Admin: 06/03/17 20:28 Dose: 1 tab Pantoprazole Sodium (Protonix Ec Tab) 40 mg PO 0600 JAMES Last Admin: 06/04/17 05:06 Dose: 40 mg - Labs Labs: 06/03/17 05:30 06/03/17 05:30 PT 12.0 Seconds (9.9-11.8) H 06/03/17 05:30 INR 1.11 (0.93-1.08) H 06/03/17 05:30 - Constitutional Appears: Non-toxic, No Acute Distress - Head Exam Head Exam: NORMAL INSPECTION - ENT Exam ENT Exam: Mucous Membranes Moist - Neck Exam Neck Exam: absent: Meningismus - Respiratory Exam Respiratory Exam: Decreased Breath Sounds - Cardiovascular Exam Cardiovascular Exam: +S1, +S2 - GI/Abdominal Exam GI & Abdominal Exam: Soft. absent: Tenderness - Extremities Exam Additional comments: left foot with dressings and bandages in place Assessment and Plan - Assessment and Plan (Free Text) Plan: Assessment UTI with Klebsiella and Strep anginosus left ankle fracture after a fall history of sepsis due to right lower lobe healthcare-associated pneumonia with possible gram positive cocci and/or gram negative bacilli history of E. coli bacteremia associated with UTI and left nephrolithiasis S/P left ureteral stent placement history of acute transient ischemic attack with transient left sided weakness history of urinary tract infection with E. coli history of herpes zoster on the left side of the neck and left ear and post- herpetic neuralgia CAD S/P PCI HTN dyslipidemia Plan continue Rocephin (day 6, to complete 7 days of therapy); follow up results of repeat urine cx; blood cx are negative awaiting surgery on the left ankle which is planned for next week will continue to monitor clinically
[2017-06-04] MEDS: Dextrose 5%/0.45% NS 1,000 ML IV SCH (21:10)
--- NOTE | 2017-06-04 22:15 | PN ---
DATE: 06/04/2017 SUBJECTIVE: The patient is upset about her left ankle pain. The patient has no headaches, dizziness, no nausea. PHYSICAL EXAMINATION VITAL SIGNS: Temperature is 98.7, pulse rate 84, blood pressure 178/98, respirations 18. GENERAL: The patient is lying in bed, flat, comfortable. HEENT: No oral lesion. Anicteric sclerae. Moist mucosa. NECK: No JVD, adenopathy, or thyromegaly. CARDIOVASCULAR: S1 and S2, regular. No murmurs, rubs, or gallops. LUNGS: Clear to auscultation bilaterally. No wheeze, rales, or rhonchi. ABDOMEN: Bowel sounds are positive, soft, nontender and nondistended. EXTREMITIES: No cyanosis, clubbing or edema. LABS: White count of 9.2 and hemoglobin of 10.4. Creatinine of 0.6. There is fracture subluxation of the left ankle, the patient's subluxation is increased to 12 mm from 9 mm. ASSESSMENT: 1. Left ankle fracture with lateral dislocation of the talus. 2. Fall. 3. Atrial fibrillation, on anticoagulation. 4. Hypertension. 5. Dyslipidemia. 6. Coronary artery disease. 7. Coagulopathy secondary to Coumadin toxicity improved. PLAN: The patient is currently using Morphine and Percocet for pain. The patient is on Colace for constipation and losartan for her coronary artery disease, she is receiving aspirin daily, the patient is on Lovenox for anticoagulation and on Neurontin for neuropathy, the patient is on regular diet. The patient's daughter has been trying to get in touch with Dr. Hilton, but has not been successful. The patient also is upset and wants to know when she can have surgery. She is interested in getting a second opinion, Dr. Hess to evaluate the patient and I did speak to him today. He is planning on surgical intervention. The patient had been seen by Dr. Jmienez, his notes indicated that the patient has mildly increased risk for planned elective orthopedic surgery. At this point, she is optimized. We will need to hold the patient's Lovenox in the morning depending on what time the patient is scheduled. We will let Dr. Hess decide after he gets a time slot. Moreno Lazo MD
[2017-06-05] MEDS: Oxycodone/Acetaminophen 5/325 mg Tab PO PRN (02:57)
[2017-06-05] MEDS: Pantoprazole 40 mg EC Tab PO SCH (05:39)
--- NOTE | 2017-06-05 06:00 | CON ---
DATE: 06/04/2017 ORTHOPEDIC CONSULT REPORT SUBJECTIVE: The patient is presently in room 317, bed 1 with a left ankle fracture, displaced. Date of injury was approximately 05/28/2017, and the fracture still displaced from that time with x-ray done today showed basically the same lateral subluxation of the talus, fracture of the medial malleolus at the level of the plafond with a fibular fracture 2 inches above the ankle mortise displaced and comminuted. There are no blood blisters. The swelling looks like it is going down from what the patient says, but it looks like she needs ORIF to stabilize that fibula before it displaces even more as the cast she is on is not adequate,and I am going to get medical clearance to bring her to surgery on 06/04/2017 to do a ORIF of the left ankle. She was coumadin the pro time and PTT are fine and her pain is controlled with medication. There is no sign that it is undue swollen. The swelling actually looks good and there is a mild wrinkle sign. So I feel with confidence we could do ORIF of the lateral malleolus to stabilize the trimalleolar fracture and possible medial malleolar fixation and hope it is just lateral malleolar plate. The family wants me to do the surgery even though somebody else was provided in the emergency room, but the family wants me to perform the surgery. so the patient is scheduled for 1 p.m. on 06/05/2017. Dr. Lopes will see the patient and get cardiac clearance and Dr. Duarte said it is alright also. Jose Hess DO [facility]
--- NOTE | 2017-06-05 08:26 | RAD ---
HISTORY: will have surgery 06/05/17 COMPARISON: 04/04/2017 FINDINGS: LUNGS: No active pulmonary disease. PLEURA: No significant pleural effusion identified, no pneumothorax apparent. CARDIOVASCULAR: Mild cardiomegaly. No congestive change. OSSEOUS STRUCTURES: No significant abnormalities. VISUALIZED UPPER ABDOMEN: Normal. OTHER FINDINGS: None. IMPRESSION: No active disease.
[2017-06-05] MEDS: Dextrose 5%/0.45% NS 1,000 ML IV SCH (08:51)
[2017-06-05] MEDS: Enoxaparin 100 mg Syringe SC SCH (09:38)
[2017-06-05 09:41] VITALS: BP 182/84; PULSE 90
[2017-06-05] MEDS: Morphine 2 mg/ml ISec IVP PRN (10:58)
--- NOTE | 2017-06-05 11:27 | PN ---
DATE: 06/05/2017 SUBJECTIVE: The patient is in bed, in room #317. No fevers or chills. OBJECTIVE: VITAL SIGNS: On exam, temperature is 98, blood pressure is 170/80 and respiratory rate of 18. EXAMINATION OF HEENT: Unremarkable. NECK: Supple. LUNGS: Decreased breath sounds. HEART EXAM: Normal S1 and S2. ABDOMINAL EXAMINATION: Soft and nontender. LABORATORY EXAMINATION: Reveals a white count of 9.2, hemoglobin of 10 and platelets of 203. The chemistries reveal a BUN of 17 and creatinine of 0.6. Microbiology reveals the blood cultures are no growth. REVIEW OF ORDERS: Reveals the patient is off of antibiotics. ASSESSMENT AND PLAN: An 82-year-old female with urinary tract infection with klebsiella and Streptococcus sanguinis; left ankle fracture after a fall; history of sepsis due to right lower lobe healthcare-associated pneumonia, possible Gram-positive cocci and Gram-negative bacillus; history of Escherichia coli bacteremia associated with urinary tract infection; left nephrolithiasis and status post left ureteral stent placement and history of transient ischemic attack with left-sided weakness and history of zoster and history of urinary tract infection with Escherichia coli and ceftriaxone, completed 7 days. The patient is awaiting for surgery of left ankle. Review of the orders reveals the patient is now off of antibiotics. Josh Omer MD
[2017-06-05] MEDS ORDERED: HYDROmorphone 0.5 mg/0.5 ml ISec IVP PRN (14:17)
[2017-06-05] MEDS ORDERED: Labetalol 5 mg/ml Inj 20ML IVP ONE (14:17)
--- NOTE | 2017-06-05 16:49 | CON ---
DATE: TYPE OF DICTATION: Consult Service, Cardiology. REASON FOR CONSULTATION: Preoperative evaluation, risk stratification for left ankle surgery and displaced fracture, history of coronary artery disease, history of congestive heart failure, history of chronic atrial fibrillation, history of PTCA in the past. BRIEF CLINICAL HISTORY: This is an 82-year-old female with a past medical history significant for coronary artery disease, status post stent; history of chronic atrial fibrillation, on anticoagulation; history of kidney stone; history of ureteric stone, came to the emergency room after having a fall and sustained fracture of left ankle, which is displaced. The patient fell down on 06/01/2017 and currently in Transitional Care Unit, room 317. Last [address] Dr[address] Hess called me for preop clearance schedule at 1 p.m. to go to the OR. The patient denies any chest pain, denies any shortness of breath, denies any palpitation. PAST MEDICAL HISTORY: Significant for coronary artery disease, status post stent in 1998; history of cardiac catheterization twice in 2013 and 01/23/2017 that shows nonobstructive coronary artery disease; patent stent proximal and mid LAD, medical treatment recommended. PREVIOUS CARDIAC WORKUP: As follows: The patient had a cardiac catheterization on 01/23/2017 most recently that showed nonobstructive coronary artery disease, limited only to distal, preserved LV function ejection fraction 55%, EDP was in the range of 18, patent stenting proximal and mid LAD dated 01/23/2017. Prior to that the patient had cardiac catheterization on 04/20/2014 and there was also nonobstructive coronary artery disease, medical treatment recommended; history of atrial fibrillation, on anticoagulation; history of chronic atrial fibrillation; history of stent in 1998 and then the patient had repeat stent in 04/20/2014 and at that time the patient had PTCA of LAD was done with stenosis of reduction from 90% to 0%. Prior, the patient had stent in proximal LAD in 1998. Repeat again most recent CAT on 01/23/2017 shows patent stent in proximal and mid LAD, right coronary artery is small vessel essentially free significant disease with circumflex large caliber vessels, distal 55% stenosis, no flow limiting stenosis, preserved LV function ejection fraction 55%, EDP in the range of 18 that is dated 01/23/2017. The patient has last echocardiography done on 12/10/2016 that shows dilated RV, dilated RA, mildly dilated LA, normal LV size in function, moderate to severe tricuspid regurgitation, mild history of pulmonary hypertension, mild MR, RV systolic pressure reported 64. SOCIAL HISTORY: Denies any history of alcohol abuse. CURRENT MEDICATIONS: The patient at home was taking Coumadin 2 mg daily, Pravastatin 10 mg daily, K-Dur 20 mEq daily, nitrofurantoin, losartan, gabapentin, and aspirin. REVIEW OF SYSTEMS: As per HPI. PHYSICAL EXAMINATION VITAL SIGNS: As follows; temperature is afebrile, heart rate 84, blood pressure 170/98. HEENT: PERRLA. Extraocular muscles intact. NECK: Supple. No carotid bruits or thyromegaly. CHEST: Clear to auscultation. HEART: S1 and S2. Regular. ABDOMEN: Soft. EXTREMITIES: Clubbing and cyanosis negative. LABORATORY DATA: Blood workup as follows: WBC 9.2, hemoglobin 10.4, hematocrit 31.8, platelet count 203. Chemistry shows sodium 130, potassium 4.4, chloride 102, carbon dioxide 28, anion gap 12, BUN 17, and creatinine 0.6. The patient's last EKG on 05/28/2017 showed atrial fibrillation, old UT of indeterminate age, heart rate 85. IMPRESSION: An 82-year-old female with past medical history significant for coronary artery disease, status post percutaneous transluminal coronary angioplasty of left anterior descending 1998, proximal left anterior descending stent and then repeat stent in 04/20/2014 is mid left anterior descending stent. Most recently cardiac catheterization, the patient admitted with unstable angina dated 01/23/2017 showed patent stent in left anterior descending, patent stent in proximal and mid left anterior descending, mild disease and circumflex, right coronary artery, nondominant small artery, preserved LV function ejection fraction 55%, end diastolic pressure was in the range of 18, chronic atrial fibrillation, was off anticoagulation for schedule for OR, history of hypertension. RECOMMENDATIONS: The patient is cleared to go for surgery with moderate risk, with underlying comorbidities, no acute fluid contraindication, no history of recent arrhythmia except baseline AFib. No history of congestive heart failure, no history of ischemia. The patient cleared from Cardiology point of view to go with moderate risk because of underlying comorbidity, moderate to high risk, but no absolute contraindication. I will discuss with Dr. Hess and the patient is cleared. We will follow with you. Continue current medications including losartan. We will put low dose of beta-dami and will give Coumadin postop and once the patient is stable then restart Coumadin. We will give the postop Lovenox once the patient is safe postop, we will restart Coumadin, because of underlying atrial fibrillation and that will also protect from DVT and PE. We will give low dose of metoprolol 25 mg b.i.d., the first dose now with sip of water to prevent going into rapid rate postop. Thank you Dr. Robles for opportunity in taking care Latrice Christine. Maurizio Lopes MD
--- NOTE | 2017-06-06 02:34 | DS ---
SUBJECTIVE: This is an 82-year-old female who was on the transitional care unit. The patient had left ankle fracture. She is scheduled for surgery today. I did speak to Dr. Hess yesterday. She is going to be admitted to the hospital site once the patient's surgery is done. She is comfortable. She had no pain. She is looking forward to her procedure this morning. PHYSICAL EXAMINATION: VITAL SIGNS: Temperature 98.7, pulse of 84, blood pressure is 178/98, respirations 18 and O2 saturation 96%. GENERAL: The patient is lying in bed, flat, comfortable. HEENT: No oral lesion. Anicteric sclerae. Moist mucosa. NECK: No JVD, adenopathy, or thyromegaly. CARDIOVASCULAR: S1 and S2, regular. No murmurs, rubs, or gallops. LUNGS: Clear to auscultation bilaterally. No wheeze, rales, or rhonchi. ABDOMEN: Bowel sounds are positive, soft, nontender and nondistended. EXTREMITIES: No cyanosis, clubbing or edema. ASSESSMENT: 1. Left ankle fracture with lateral dislocation of the talus. 2. Fall. 3. Atrial fibrillation, on anticoagulation. 4. Hypertension. 5. Dyslipidemia. 6. Coronary artery disease. 7. Coagulopathy secondary to Coumadin toxicity, improved. PLAN: The patient is currently comfortable. She is on morphine for pain. She is going to continue with her aspirin. She is on Lovenox for anticoagulation. She is going to follow up with Dr. Hess as an outpatient. Condition is stable. Activities increase as tolerated. Moreno Lazo MD
--- NOTE | 2017-06-06 03:07 | OP ---
PROCEDURE DATE: 06/06/2017 PREOPERATIVE DIAGNOSES: Displaced bimalleolar fracture, left ankle with lateral subluxation of the talus, with high lateral malleolar fracture and a medial malleolar fracture to level of the plafond. POSTOPERATIVE DIAGNOSIS: Displaced bimalleolar fracture, left ankle with lateral subluxation of the talus, with high lateral malleolar fracture and a medial malleolar fracture to level of the plafond. PROCEDURE: General anesthesia and close reduction with manipulation and application of a short-leg cast in the operating room with the help of the C-arm. DESCRIPTION OF PROCEDURE: The patient taken to OR, left ankle prepped and draped in sterile fashion with the plan to do a open reduction and internal fixation if we did not get a close reduction. When I did a close reduction with good anesthesia, x-ray showed good position of this subluxation of the talus and the medial malleolus and the lateral malleolus was in good position in alignment but at the fracture a little displaced but acceptable for someone that is 82 years old. To avoid open reduction and internal fixation we accepted this, put in a well-molded short-leg cast in dorsiflexion and we will try our best to keep her nonweightbearing as she has some compliance issues. So hopefully we will be able to send her to a subacute rehab facility to help for postop care that will be appropriate for this fracture which is nonweightbearing and observation and I will probably get x-ray every 10 days to make sure it is in place and if it goes out of place, we have to redo the reduction. We will still advise her then as opposed to doing an open reduction and internal fixation with a high chance of infection and hardware failure if she walks on it, which she will probably. So I put a light cast on, extra reinforcement and is sent to recovery room in good condition. Jose Hess DO
--- NOTE | 2017-06-06 13:30 | CON ---
DATE: 06/06/2017 LOCATION: The patient is in room #572, bed #2. REASON FOR CONSULTATION: Coronary artery disease, atrial fibrillation, history of congestive heart failure, history of PTCA in the past, status post close reduction of left ankle fracture. HISTORY OF PRESENT ILLNESS: An 82-year-old female was admitted with fracture, left ankle, which happened due to the patient falling down and the patient had close reduction under anesthesia by Dr. Hess, now the patient is post close reduction with a cast on the left lower leg. The patient is lying flat in bed without chest pain, shortness of breath or palpitation. The patient is known to have coronary artery disease, history of PTCA in the past, chronic atrial fibrillation, on anticoagulation, history of kidney stone and ureteric stone. PAST MEDICAL HISTORY: Significant for coronary artery disease, status post stent in 1998. history of cardiac catheterization in 2013 and 01/23/2017, that showed nonobstructive coronary artery disease, patent stent is proximal and mid LAD. Medical therapy was suggested at that time. Previous cardiac workup: The patient had cardiac catheterization in 01/23/2017, which showed nonobstructive coronary artery disease, limited only to the distal vessel, preserved LV function, ejection fraction of 55%. EDP was in the range of 18, patent stenting proximal and mid LAD. This catheterization was done 01/23/2017. Prior to that, the patient had cardiac catheterization on 04/20/2014. The patient is known to have history of atrial fibrillation, on anticoagulation, history of stent in 1998 and then the patient had a repeat stent on 04/20/2014 in LAD. Most recent cath was on 04/18/2017, that showed patent stents in proximal and mid LAD, right coronary artery is a small vessel. Essentially, free of significant disease with circumflex large caliber vessel, distal 55% stenosis in the circumflex, no flow limiting stenosis was seen, preserved LV function, ejection fraction of 55%, EDP in the range of 18. These findings are on 01/23/2017 catheterization. Echo was done on 12/10/2016, that showed dilated RV, dilated RA, mildly dilated LA, normal LV size and normal LV function, [id number] tricuspid regurgitation, mild pulmonary hypertension with RV systolic pressure reported at 64 mmHg, mild mitral regurgitation. PERSONAL HISTORY: Denies any history of smoking or drinking. MEDICATIONS: The patient's medications at home were Coumadin 2 mg daily, Pravastatin 10 mg daily, K-Dur 20 mEq daily, nitrofurantoin, losartan, gabapentin, and aspirin. PHYSICAL EXAMINATION: VITAL SIGNS: Blood pressure 186/86, respiration 20, pulse 80, and temperature 98.9. HEENT: Head is normocephalic. Eyes, pupils normal. Conjunctivae slightly pale. NECK: JVP low. Carotid equal. Thorax AP diameter normal. LUNGS: Clear. CARDIOVASCULAR: S1 and S2. ABDOMEN: Soft and nontender. No organomegaly. EXTREMITIES: No clubbing, no cyanosis. The patient has cast on the left lower leg. LABORATORY DATA: WBC 89.3, hemoglobin 10.4, hematocrit 32.3, and platelet 283. Sodium 140, potassium 3.8, BUN 13, creatinine 0.6, glucose 96, calcium. magnesium and phosphorus normal. AST and ALT normal. Total protein and albumin normal. TSH 2.53. DIAGNOSES: The patient is status post left ankle fracture, status post close reduction under anesthesia, left ankle fracture, coronary artery disease, history of stent insertion, chronic atrial fibrillation, mild pulmonary hypertension, [id number] tricuspid regurgitation, mild mitral regurgitation, normal left ventricle ejection fraction, high cholesterol, hypertension. PLAN: The patient's today prothrombin time is 15.5, INR 1.40. The patient is on aspirin 81 mg daily, warfarin 7.5 mg today, starting tomorrow warfarin with 2 mg daily, losartan 12.5 mg daily, being started today, atorvastatin 10 mg daily, Lovenox 90 mg subcutaneous b.i.d., gabapentin 300 mg t.i.d., Protonix 40 daily We will repeat troponin in the morning. We will put the patient on aspirin 81 mg daily, Lipitor 2* mg daily, metoprolol 25 b.i.d., Plavix 75 mg daily, Protonix 4* daily. The patient being started on Losartan today, we will monitor blood pressure and adjust the medication accordingly and we will follow with you. We will check the lipid levels. Maurizio Arceo MD
== END 2017-06-05 14:48 | disposition short-term general hospital (02) | DRG 563 ==
LOC: TRCU 12:37
PROVIDERS: ADMIT Internal Medicine Medical Oncology; ATTEND Internal Medicine Nephrology
PROC: F07Z9FZ Gait Training/Functional Ambulation Treatment using Assistive, Adaptive, Supportive or Protective Equipment (ICD-10-PCS; principal; 2017-06-01)
PROC: F08Z4FZ Home Management Treatment using Assistive, Adaptive, Supportive or Protective Equipment (ICD-10-PCS; 2017-06-01)
DX: S82.842A Displaced bimalleolar fracture of left lower leg, initial encounter for closed fracture (principal); S93.05XA Dislocation of left ankle joint, initial encounter; I11.0 Hypertensive heart disease with heart failure; I50.9 Heart failure, unspecified; N39.0 Urinary tract infection, site not specified; B02.29 Other postherpetic nervous system involvement; I48.2 Chronic atrial fibrillation; I08.1 Rheumatic disorders of both mitral and tricuspid valves; I27.20 Pulmonary hypertension, unspecified; I25.10 Atherosclerotic heart disease of native coronary artery without angina pectoris; E78.00 Pure hypercholesterolemia, unspecified; B96.1 Klebsiella pneumoniae [K. pneumoniae] as the cause of diseases classified elsewhere; R79.1 Abnormal coagulation profile; T45.515A Adverse effect of anticoagulants, initial encounter; Z86.73 Personal history of transient ischemic attack (TIA), and cerebral infarction without residual deficits; Z87.440 Personal history of urinary (tract) infections; W19.XXXA Unspecified fall, initial encounter; Y92.009 Unspecified place in unspecified non-institutional (private) residence as the place of occurrence of the external cause; Z79.01 Long term (current) use of anticoagulants; Z87.442 Personal history of urinary calculi; Z95.5 Presence of coronary angioplasty implant and graft

== ENCOUNTER 2017-06-05 12:43 | Inpatient (IN) | payer MEDICARE ==
[2017-06-05 10:07] VITALS: BMI 31.0
[2017-06-05] MEDS ORDERED: Propofol 10 mg/ml Inj (20 ML) ONE (13:10)
[2017-06-05] MEDS ORDERED: Rocuronium 10 mg/ml (5 ml) ONE (13:14)
[2017-06-05] MEDS ORDERED: Succinylcholine 200 mg/10 ml Inj IV ONE (14:04)
[2017-06-05] MEDS ORDERED: Neostigmine Methylsulfate 3mg/3ml Syringe IV ONE (14:04)
[2017-06-05] MEDS ORDERED: Labetalol 5 mg/ml Inj 20ML IVP ONE (14:27)
[2017-06-05] MEDS ORDERED: HYDROmorphone 1 mg/ml ISec IVP PRN (14:27)
[2017-06-05] MEDS ORDERED: Enoxaparin 100 mg Syringe SC SCH (15:00)
[2017-06-05] MEDS ORDERED: Labetalol 5 mg/ml Inj 20ML ONE (15:29)
[2017-06-05] MEDS ORDERED: Labetalol 5 mg/ml Inj 20ML IV ONE (15:30)
[2017-06-05] MEDS: Oxycodone/Acetaminophen 5/325 mg Tab PO PRN (21:01)
[2017-06-06] MEDS: Oxycodone/Acetaminophen 5/325 mg Tab PO PRN ×3 (02:12→20:54)
[2017-06-06] MEDS: Enoxaparin 100 mg Syringe SC SCH ×2 (05:32→17:59)
[2017-06-06] MEDS: Pantoprazole 40 mg EC Tab PO SCH (05:33)
[2017-06-06 06:39] LABS: HEMATOCRIT 32.3 % (36.0-48.0); MEAN CELL VOLUME 89.5 fl (80.0-105.0); MEAN CORPUSCULAR HEMOGLOBIN 28.8 pg (25.0-35.0); MEAN CORPUSCULAR HGB CONC 32.2 g/dl (31.0-37.0); RED CELL DISTRIBUTION WIDTH 16.2 % (11.5-14.5); WHITE BLOOD COUNT 9.3 10^3/ul (4.5-11.0)
[2017-06-06 06:40] LABS: INR 1.4 (0.93-1.08)
[2017-06-06 06:50] LABS: ALKALINE PHOSPHATASE 125 U/L (38-126); ALT/SGPT 26 U/L (7-56); AST/SGOT 29 U/L (14-36); BILIRUBIN,TOTAL 0.8 mg/dL (0.2-1.3); BLOOD UREA NITROGEN 13 mg/dL (7-21); CALCIUM 9.6 mg/dL (8.4-10.5); CARBON DIOXIDE 30 mmol/L (21-33); CHLORIDE 102 mmol/L (98-107); GFR AFRICAN-AMERICAN > 60; GLUCOSE,RANDOM 96 mg/dL (70-110); POTASSIUM 3.8 mmol/L (3.6-5.0); SODIUM 140 mmol/L (132-148); TOTAL PROTEIN 6.8 g/dL (5.8-8.3)
[2017-06-07] MEDS: Oxycodone/Acetaminophen 5/325 mg Tab PO PRN ×4 (01:15→20:15)
[2017-06-07] MEDS: Pantoprazole 40 mg EC Tab PO SCH (06:37)
--- NOTE | 2017-06-07 07:22 | CON ---
DATE: 06/06/2017 HISTORY OF PRESENT ILLNESS: The patient has no complaints of any chest pain, no shortness of breath or headache, no dizziness. She was initially admitted to the hospital and had a left ankle procedure done by Dr. Hess from orthopedics. She had a fall initially and was in the transitional care unit while her swelling improved. The patient initially had seen Dr. Hilton, but the patient was not happy, was not having plan regarding her ankle. She expressed having a second opinion and so Dr. Hess was consulted. The patient is now in the acute side of the hospital, waiting to be discharged to a rehab facility. The patient does not wish to go to a rehab facility as to be able to do that to help her get back on her feet. She does have that she helps take care of. She is asking to go home. We will wait for her to improve and see if she is able to go home versus go to subacute rehab. I did advise her to talk to her family before she makes final decision. She has no headaches, no dizziness. Her pain is currently controlled. She is using pain medications. ALLERGIES: NO KNOWN DRUG ALLERGIES. HOME MEDICATIONS: Medications were reviewed. PAST MEDICAL HISTORY: 1. Fall. 2. Atrial fibrillation, on Coumadin. 3. Hypertension. 4. Dyslipidemia. 5. Coronary artery disease. FAMILY HISTORY: Noncontributory. SOCIAL HISTORY: No history of smoking, drinking, or alcohol. PHYSICAL EXAMINATION: VITAL SIGNS: Temperature is 98.9, pulse of 82, blood pressure is 189/102, respirations 20, O2 saturations 96%. GENERAL: The patient lying in bed, uncomfortable, and in no acute distress. HEENT: Atraumatic and normocephalic. Anicteric sclerae. Moist mucosa. [place] conjunctivae. No oral lesions. NECK: No JVD, anterior and posterior adenopathy, thyromegaly, or bruits. CARDIOVASCULAR: S1 and S2 regular. No murmur, rubs, or gallop. LUNGS: Clear to auscultation bilaterally. No wheezes, rales, or rhonchi. ABDOMEN: Bowel sounds are positive. Soft, nontender and nondistended. No hepatosplenomegaly. No rebound and no guarding EXTREMITIES: No cyanosis, clubbing, or edema. L leg with cast in place. Pt can wiggle toes no discoloration NEUROLOGIC: No facial asymmetry. Tongue is midline. No uvula deviation. Power is 5/5 upper extremity and lower extremity. Sensation intact in upper extremity and lower extremity. PSYCHIATRIC: She is awake, alert and oriented x2. No anxiety or depression. She has normal affect. GENITOURINARY: No CVA tenderness. VASCULAR: 2+ pulses in the carotid pulses and pedal pulses. SKIN: No erythema or nodules SPINE: Shows normal curvature LABORATORY DATA: Labs have been reviewed. White count is 9.3, hemoglobin 10.4. Sodium is 140, potassium is 3.8, albumin 3.4. ASSESSMENT: 1. Status post closed reduction of left ankle. 2. Left ankle fracture with lateral dislocation of the talus. 3. Fall. 4. Atrial fibrillation, on anticoagulation. 5. Hypertension. 6. Dyslipidemia. 7. Coronary artery disease. PLAN: The patient is currently comfortable. She has given clonidine for her hypertension. The patient is on Coumadin that is restarted. She is receiving aspirin daily. The patient is on Lovenox for anticoagulation. The patient is on losartan for her hypertension. If blood pressure remains elevated, I will start the patient on Norvasc to see if the blood pressure can be better controlled. We will continue to follow. I thank Dr. Hess for allowing me to participate in the care of this patient. He has asked me to continue to follow along for medical management and also to see the patient if she goes to [facility]. Moreno Lazo MD LORIE
[2017-06-07 07:46] LABS: CHOLESTEROL 135 mg/dL (130-200)
[2017-06-07 07:56] LABS: INR 2.35 (0.93-1.08)
--- NOTE | 2017-06-07 12:59 | PN ---
SUBJECTIVE: The patient has no complaints of any chest pain. No shortness of breath. No headaches or dizziness. PHYSICAL EXAMINATION: VITAL SIGNS: Temperature is 98.3, pulse of 84, blood pressure is 162/87, respiration is 20. GENERAL: The patient is lying in bed, flat, comfortable. HEENT: No oral lesion. Anicteric sclerae. Moist mucosa. NECK: No JVD, adenopathy, or thyromegaly. CARDIOVASCULAR: S1 and S2, regular. No murmurs, rubs, or gallops. LUNGS: Clear to auscultation bilaterally. No wheeze, rales, or rhonchi. ABDOMEN: Bowel sounds are positive, soft, nontender and nondistended. EXTREMITIES: No cyanosis, clubbing or edema. LABORATORY DATA: White count of 9.3, hemoglobin 10.4 and creatinine is 0.6. ASSESSMENT: 1. Left ankle fracture, status post closed reduction. 2. Atrial fibrillation. 3. Fall. 4. Hypertension. 5. Dyslipidemia. 6. Coronary artery disease. PLAN: The patient is currently comfortable. She is on Coumadin, the patient is going to continue. She is on amlodipine for hypertension. The patient is on losartan. She has hypertension, but is not controlled with Norvasc. I will need to increase the patient's amlodipine. The patient is on Zofran as needed. I will discontinue the Zofran. She is on Tylenol as needed. She is on heart healthy diet. She is going to continue with Lipitor for dyslipidemia. I will also increase her losartan to 25 mg. Moreno Lazo MD
--- NOTE | 2017-06-07 13:10 | PN ---
DATE: 06/07/2017 LOCATION: The patient in bed 572, bed 2 REASON FOR CONSULTATION: Followup with coronary artery disease, atrial fibrillation, history of congestive heart failure, history of PTCA in the past, status post post-reduction of the left ankle fracture. SUBJECTIVE: The patient lying flat in bed without chest pain, shortness of breath, or palpitation. PHYSICAL EXAMINATION: VITAL SIGNS: Blood pressure 162/87, respirations 20, pulse 84, temperature 98.3. HEENT: Head is normocephalic. Eyes: Pupils normal. Conjunctivae slightly pale. NECK: JVP low. Carotids equal. THORACIC: AP diameter is normal. LUNGS: Clear. CARDIOVASCULAR: S1 and S2. ABDOMEN: Soft and nontender. No organomegaly. EXTREMITIES: The patient has a cast on the left leg due to fractured ankle, which has closed reduction done. LABORATORY DATA: WBC 9.3, hemoglobin 10.4, hematocrit 32.3, and platelet 283. Sodium 140, potassium 3.8, BUN 13, creatinine 0.6. AST, ALT normal. Triglyceride 104. TSH 2.53. The patient's prothrombin time today is 26.3 with an INR of 2.35. DIAGNOSES: The patient is status post left ankle fracture, status post closed reduction, seizure, left ankle fracture, coronary artery disease, history of stent insertion, chronic atrial fibrillation, mild pulmonary hypertension, [id number] tricuspid regurgitation, mild mitral regurgitation, normal left ventricular ejection fraction, high cholesterol, and hypertension. The patient's last cath findings and echocardiogram, which was done on 12/10/2016 have been detailed, discussed in our consultation dated 06/06/2017. The patient's PT/INR is therapeutic today. So, we will stop Lovenox and we will continue warfarin 2 mg p.o. daily, amlodipine 5 mg daily, gabapentin 300 mg p.o. t.i.d., aspirin 81 mg p.o. daily, and we will follow with you. Clinically, cardiac status is stable. Maurizio Arceo MD
[2017-06-08] MEDS: Oxycodone/Acetaminophen 5/325 mg Tab PO PRN ×3 (01:00→11:08)
[2017-06-08] MEDS: Pantoprazole 40 mg EC Tab PO SCH (07:02)
[2017-06-08 07:33] LABS: INR 3.54 (0.93-1.08)
--- NOTE | 2017-06-08 11:01 | PN ---
DATE: FIRST DAY POSTOPERATIVE REPORT An 82-year-old female, who had close reduction successfully done on the left ankle. I put her in a short leg cast for fracture dislocation that had occurred on 05/28/2017. The skin looked fine. We elected to treat her nonsurgically by just putting her in a well padded and molded short leg cast and tried to get her to successfully heal within 6 to 8 weeks, and then we could put her in a fracture boot, but after this hospital stay, she should go to subacute rehab like [facility] would be very good, so I could follow her and change the cast periodically and get good x-rays every 2 weeks to make sure the fracture does not displace, so we could get another attempt at closed reduction. She is still going to be safe and doing a formal open reduction because she does not comply with physical therapy orders and she likes to put weight on her leg. We will try to avoid this by watching her closely and changing the cast when she needs it. So, I will follow her when she goes to subacute rehab as long as she is in [facility]. Jose Hess DO
--- NOTE | 2017-06-08 12:30 | PN ---
DATE: SUBJECTIVE: The patient has no complaints of any chest pain. No shortness of breath. No headaches. Pain is controlled. PHYSICAL EXAMINATION: VITAL SIGNS: Temperature is 98, pulse of 80, blood pressure is 162/82, respirations 18. GENERAL: The patient is lying in bed, flat, comfortable. HEENT: No oral lesion. Anicteric sclerae. Moist mucosa. NECK: No JVD, adenopathy, or thyromegaly. CARDIOVASCULAR: S1 and S2, regular. No murmurs, rubs, or gallops. LUNGS: Clear to auscultation bilaterally. No wheeze, rales, or rhonchi. ABDOMEN: Bowel sounds are positive, soft, nontender and nondistended. EXTREMITIES: No cyanosis, clubbing or edema. LABORATORY DATA: Creatinine 0.6. ASSESSMENT: 1. Left ankle fracture, status post closed reduction. 2. Atrial fibrillation. 3. Fall. 4. Hypertension. 5. Dyslipidemia. 6. Coronary artery disease. PLAN: The patient is currently comfortable. INR is 3.5. The patient is on Coumadin 2 mg. I will hold the patient's Coumadin today and lower the dosage. The patient is to go to subacute rehab. Most likely, she will go to [place]. I did speak to Dr. Hess about the case. The patient is cleared to be discharge. The patient is on Lipitor for dyslipidemia. She is on 10 mg of Norvasc. The patient's blood pressure remains elevated. The patient's losartan was increased yesterday. I will continue to follow the patient closely. She is on heart healthy diet. Condition is stable. Activities increase as tolerated. Moreno Lazo MD
--- NOTE | 2017-06-08 14:07 | PN ---
DATE: 06/08/2017 REASON FOR CONSULTATION: Follow up preop evaluation, postop follow up for left ankle fracture, history of coronary artery disease, history of PTCA. SUBJECTIVE: The patient denies any chest pain, shortness of breath, or any palpitation. OBJECTIVE: Lying flat in the bed, not in apparent distress. PHYSICAL EXAMINATION: VITAL SIGNS: Temperature afebrile, heart rate 80, blood pressure 162/82. HEENT: PERRLA. Extraocular muscles are intact. NECK: Supple. No carotid bruit or thyromegaly. CHEST: Clear to auscultation. HEART: S1 and S2 regular. ABDOMEN: Soft. EXTREMITIES: Clubbing and cyanosis negative. LABORATORY DATA: Blood workup as follows: WBC 9.3, hemoglobin 10.4, hematocrit 32.3, and platelet count 283. Chemistry showed sodium of 140, potassium 3.8, chloride 102, carbon dioxide 30, anion gap of 12, BUN 13, creatinine 0.6. Triglyceride 104, cholesterol 135, LDL 84 and HDL 31. IMPRESSION: Status post ankle fracture, status post closed reduction and POP applied, did not require open reduction of left ankle fracture; history of coronary artery disease; history of stent in left anterior descending; history of chronic atrial fibrillation. Last echocardiogram on 12/10/2016 shows [id number] tricuspid regurgitation, mild mitral regurgitation, preserved LV function. RECOMMENDATIONS: Continue anticoagulation for underlying atrial fibrillation. Discontinue Lovenox. INR is actually 3.54, we will hold Coumadin today. Repeat INR tomorrow and start from tomorrow if INR is less than 2.5. We will follow with you. Thank you Dr. Lazo as well as Dr. Hess for providing me the opportunity in taking care of the patient. Maurizio Lopes MD
[2017-06-08 17:30] VITALS: BP 125/73; PULSE 74; RESP 20; TEMP 98.6; O2SAT 95
--- NOTE | 2017-06-09 17:16 | OP ---
PROCEDURE DATE: 06/06/2017 PREOPERATIVE DIAGNOSES: Displaced bimalleolar fracture, left ankle with lateral subluxation of the talus, with high lateral malleolar fracture and a medial malleolar fracture to level of the plafond. POSTOPERATIVE DIAGNOSIS: Displaced bimalleolar fracture, left ankle with lateral subluxation of the talus, with high lateral malleolar fracture and a medial malleolar fracture to level of the plafond. PROCEDURE: General anesthesia and close reduction with manipulation and application of a short-leg cast in the operating room with the help of the C-arm. DESCRIPTION OF PROCEDURE: The patient taken to OR, left ankle prepped and draped in sterile fashion with the plan to do a open reduction and internal fixation if we did not get a close reduction. When I did a close reduction with good anesthesia, x-ray showed good position of this subluxation of the talus and the medial malleolus and the lateral malleolus was in good position in alignment but at the fracture a little displaced but acceptable for someone that is 82 years old. To avoid open reduction and internal fixation we accepted this, put in a well-molded short-leg cast in dorsiflexion and we will try our best to keep her nonweightbearing as she has some compliance issues. So hopefully we will be able to send her to a subacute rehab facility to help for postop care that will be appropriate for this fracture which is nonweightbearing and observation and I will probably get x-ray every 10 days to make sure it is in place and if it goes out of place, we have to redo the reduction. We will still advise her then as opposed to doing an open reduction and internal fixation with a high chance of infection and hardware failure if she walks on it, which she will probably. So I put a light cast on, extra reinforcement and is sent to recovery room in good condition. Jose Hess DO
--- NOTE | 2017-06-10 10:58 | RAD ---
PROCEDURE: Fluoroscopy up to 1 hour HISTORY: CLOSED REDUCTION OF LEFT ANKLE FX. UNDER FLUOROSCOPY COMPARISON: TECHNIQUE: Fluoroscopy was provided in the operating room. 6.8 seconds of fluoro time were used. 12 images submitted showing closed reduction of a bimalleolar fracture. FINDINGS: IMPRESSION: As above
== END 2017-06-08 18:44 | DRG 563 ==
LOC: SDS 12:43 → 5RSO 16:49 → SDS 06-06 11:00 → 5RSO 06-06 11:00
PROVIDERS: ADMIT Orthopaedic Surgery; ATTEND Orthopaedic Surgery
PROC: 0QSHXZZ Reposition Left Tibia, External Approach (ICD-10-PCS; 2017-06-05)
PROC: 0QSKXZZ Reposition Left Fibula, External Approach (ICD-10-PCS; principal; 2017-06-05 13:00)
DX: S82.842A Displaced bimalleolar fracture of left lower leg, initial encounter for closed fracture (principal); I50.9 Heart failure, unspecified; I48.2 Chronic atrial fibrillation; I11.0 Hypertensive heart disease with heart failure; S93.05XA Dislocation of left ankle joint, initial encounter; I25.10 Atherosclerotic heart disease of native coronary artery without angina pectoris; I27.20 Pulmonary hypertension, unspecified; I08.1 Rheumatic disorders of both mitral and tricuspid valves; E78.00 Pure hypercholesterolemia, unspecified; W19.XXXA Unspecified fall, initial encounter; Y93.89 Activity, other specified; Y92.009 Unspecified place in unspecified non-institutional (private) residence as the place of occurrence of the external cause; Z79.01 Long term (current) use of anticoagulants; Z98.61 Coronary angioplasty status; Z79.82 Long term (current) use of aspirin; Z79.899 Other long term (current) drug therapy

== ENCOUNTER 2017-11-10 17:56 | Inpatient (IN) | payer MEDICARE ==
[2017-11-10 18:22] VITALS: BMI 26.6
--- NOTE | 2017-11-10 19:08 | ED PDOC ---
Arrival/HPI - General Chief Complaint: Trauma Time Seen by Provider: 11/10/17 18:05 Historian: Patient, Spouse, EMS - History of Present Illness Narrative History of Present Illness (Text): 11/10/17 19:06 pt p/w + syncope this morning; pt states she was trying to get to the commode and suddenly she was on the floor, unknown timeframe of down time but pt was found by her spouse quickly; pt was noted to be on the floor; no diaphoresis, no incontinence, + fall, no headache, no vision changes, no slurr speech, no cp/ sob/palpitations, no abd pain, no n/v, no numbness/tingling, + last 2-3 days with dysuria/burning and pain with urination, and noted brownish urine as well; no diarrhea; pt states no fever/chills/sweats, no appetite changes; pt is here for further eval; pt's without other complaints. EMS contacted and arrived to her residence and transported pt to ED for further eval. PCP: Dr Donohue pt is primarily bedbound pt does not walk pt is right hand dominate Time/Duration: Prior to Arrival Symptom Onset: Sudden Activities at Onset: Rest Context: Home Past Medical History - Provider Review Nursing Documentation Reviewed: Yes - Travel History Have you recently traveled outside [place] w/in the past 3 mons?: No - Past History Past History: No Previous - Infectious Disease Hx of Infectious Diseases: None - Reproductive Menopause: Yes Currently : No - Cardiac Hx Cardiac Arrhythmia: Yes - Pulmonary Hx Pneumonia: Yes - Neurological HX Cerebrovascular Accident: No - HEENT Hx HEENT Disorder: No - Renal Hx Renal Disorder: No - Endocrine/Metabolic Hx Diabetes Mellitus Type 1: No Hx Diabetes Mellitus Type 2: No Hx Hypothyroidism: No - Hematological/Oncological Hx Shingles: Yes ((2016)left orthodox around to neck) - Integumentary Hx Dermatological Disorder: Yes Other/Comment: Shingles on left side of neck on 04/14/16. 5--17 LEFT HIP WITH IRREGULARLY SHAPED STAGE 2 PRESSURE ULCER .MEASURES 1.5 X 2.5 CM. RED AREA. MILD SEROUS DRAINAGE.01-20-17 HEALING .FLAT REDDENED AREA.DRY.3 X 4 CM . BILATERAL LE DARK TO LIGHT BROWNISH SKIN. DISCOLORATION.EDEMA +1.PITTING - Musculoskeletal/Rheumatological Hx Unsteady Gait: Yes (cane) - Gastrointestinal Hx Gastrointestinal Disorders: (pt can't recall last bm) - Genitourinary/Gynecological Hx Urinary Tract Infection: Yes - Psychiatric Hx Emotional Abuse: No Hx Physical Abuse: No Hx Substance Use: No - Surgical History Hx Coronary Stent: Yes (X2) Other/Comment: CARDIAC STENT X 2 - Anesthesia Hx Anesthesia Reactions: No Hx Malignant Hyperthermia: No - Suicidal Assessment Feels Threatened In Home Enviroment: No Family/Social History - Physician Review Nursing Documentation Reviewed: Yes Family/Social History: No Known Family HX Smoking Status: Never Smoked Hx Alcohol Use: No Hx Substance Use: No Hx Substance Use Treatment: No Allergies/Home Meds Allergies/Adverse Reactions: Allergies No Known Allergies Allergy (Verified 11/10/17 18:22) Home Medications: Home Meds Medication Instructions Recorded Confirmed Acetaminophen [Tylenol 325mg tab] 325 mg PO Q6H PRN 06/05/17 11/10/17 Aspirin [Aspirin Chewable] 81 mg PO DAILY 06/05/17 11/10/17 Atorvastatin [Lipitor] 10 mg PO DIN 06/05/17 11/10/17 Docusate [Colace] 100 mg PO BID 06/05/17 11/10/17 Enoxaparin [Lovenox] 90 mg SQ Q12H 06/05/17 11/10/17 Gabapentin [Neurontin] 300 mg PO TID 06/05/17 11/10/17 Losartan [Cozaar] 12.5 mg PO DAILY 06/05/17 11/10/17 Pantoprazole Sodium [Protonix] 40 mg PO AMHS 06/05/17 11/10/17 Review of Systems - Review of Systems Constitutional: Fatigue Eyes: Normal ENT: Normal Respiratory: Normal Cardiovascular: Syncope. absent: Chest Pain, Orthopnea Gastrointestinal: Normal Genitourinary Female: Dysuria, Other (urine discoloration) Musculoskeletal: Normal Skin: Normal Neurological: Normal Endocrine: Normal Hemo/Lymphatic: Normal Psychiatric: Normal Physical Exam Vital Signs Reviewed: Yes Vital Signs Temp Pulse Resp BP Pulse Ox 11/10/17 18:08 98.0 F 116 H 18 167/56 H 98 Temperature: Afebrile Blood Pressure: Hypertensive Pulse: Tachycardic Respiratory Rate: Normal Appearance: Positive for: Well-Appearing, Non-Toxic, Uncomfortable, Other (alert /awake, milldy uncomfortable, follows command with ease, cooperative, GCS = 15, oriented x 2 (not to date/time), resting in bed) Pain Distress: None Mental Status: Positive for: Alert and Oriented X 3 - Systems Exam Head: Present: Atraumatic, Normocephalic, Other (mild bi-temporal wasting noted) Pupils: Present: PERRL, Other (visual field intact b/l, no nystagmus, no photophobia, sclera anicteric) Extroacular Muscles: Present: EOMI Conjunctiva: Present: Normal Ears: Present: Normal Mouth: Present: Other (mild dry oral mucosa; fair dentitions, no drooling/ stridor, uvula/tongue are midline) Pharnyx: Present: Normal Nose (External): Present: Atraumatic Nose (Internal): Present: Normal Inspection Neck: Present: Normal Range of Motion, Trachea Midline, Other (no meningeal signs, no midline tenderness, no nuchal rigidity). No: Meningeal Signs, MIDLINE TENDERNESS Respiratory/Chest: Present: Clear to Auscultation, Good Air Exchange, Other ( CTA b/l, no w/r/r, no accessory muscle use noted). No: Respiratory Distress, Accessory Muscle Use Cardiovascular: Present: Regular Rate and Rhythm, Normal S1, S2. No: Murmurs Abdomen: Present: Normal Bowel Sounds, Other (well nourished/obese female, no focal tenderness, no rubio's sign, no mcburney's point tenderness, no masses/ rebound/guarding/rigidity) Back: Present: Normal Inspection. No: CVA Tenderness, Midline Tenderness Upper Extremity: Present: Normal Inspection, NORMAL PULSES, Neurovascularly Intact, Other (moving upper limbs with ease, strength 5/5 grossly intact b/l, neurovasc intact b/l) Lower Extremity: Present: Normal Inspection, NORMAL PULSES, Other (strength 4+/ 5 b/l lower ext, neurovasc intact b/l, intact ROM, no gross deformities noted) Neurological: Present: GCS=15, CN II-XII Intact, Speech Normal, Other (no slurr speech, oriented x 3, CNII-XII WNL, no facial asymmetries, NIH stroke scale ~ 0- 1) Skin: Present: Warm, Dry, Other (cap refill ~ 1 sec, no ulcerations, no petechiae, mild pallor is noted) Psychiatric: Present: Alert Medical Decision Making ED Course and Treatment: 11/10/17 19:00 Impression: syncope, loc/weakness i have consider all the differential diagnosis regarding pt's chief medical complaints/clinical findings, including but are not limited to: syncope A/P: syncope with dysuria - labs - iv - xray - ct - ua - observe - supportive care [id number] Razo, automation/controls manager for Dr Donohue, made aware of pt's medical presentation in the ED, agrees with ED mgt/txt, agrees with admission 11/10/17 22:15 pt is currently comfortable with mild headache pt tolerated po well pt is made aware of her medical results pt agrees with admission Re-evaluation Time: 22:24 Reassessment Condition: Improved - Lab Interpretations Lab Results: 11/10/17 19:40 11/10/17 19:40 Lab Results 11/10/17 19:40: Sodium 145, Potassium 4.3, Chloride 107, Carbon Dioxide 25, Anion Gap 17, BUN 13, Creatinine 0.6 L, Est GFR ( Amer) > 60, Est GFR ( Non-Af Amer) > 60, Random Glucose 110, Calcium 11.0 H, Total Bilirubin 0.6, AST 31, ALT 17, Alkaline Phosphatase 152 H D, Total Creatine Kinase 58, Troponin I < 0.01, Total Protein 8.0, Albumin 4.3, Globulin 3.7, Albumin/Globulin Ratio 1.1 , Lipase 64 11/10/17 19:40: PT 60.4 H, INR 5.12 H*, APTT 56.1 H 11/10/17 19:40: WBC 15.6 H D, RBC 4.37, Hgb 13.1 D, Hct 39.7, MCV 90.8, MCH 30.0, MCHC 33.0, RDW 16.7 H, Plt Count 281, MPV 9.5, Gran % 81.4 H, Lymph % ( Auto) 9.6 L, Titus % (Auto) 8.8 H, Eos % (Auto) 0.1 L, Baso % (Auto) 0.1, Gran # 12.70 H, Lymph # (Auto) 1.5, Titus # (Auto) 1.4 H, Eos # (Auto) 0.0, Baso # (Auto ) 0.01 I have reviewed the lab results: Yes Interpretation: Abnormal lab values (elevated INR; ABNL UA) - RAD Interpretation Narrative RAD Interpretations (Text): 11/10/17 21:43 CT Head: FINDINGS: Brain: Moderate atrophy. No intracranial hemorrhage. No mass. Few scattered foci of decreased attenuation within periventricular/subcortical white matter. No edema. Ventricles: No hydrocephalus. Bones/joints: No acute fracture. Incomplete closure of C1 ring, normal variant. Soft tissues: Unremarkable. Vasculature: Atherosclerotic disease of intracranial arteries. Sinuses: Scattered minimal mucosal thickening of ethmoid sinuses. Mastoid air cells: No mastoid effusion. Orbits: Unremarkable as visualized. IMPRESSION: 1. No intracranial hemorrhage. 2. Nonspecific white matter changes. 3. Incidental/non-acute findings are described above. 11/10/17 22:26 CXR: b/l atelecatsis, no effusions/focal infiltrates noted Radiology Orders: 11/10/17 19:09 HEAD W/O CONTRAST [CT] Stat 11/10/17 19:10 CHEST ONE VIEW [RAD] Stat Decorating Equipment Setter: ED Physician, Radiologist - EKG Interpretation EKG Interpretation (Text): 11/10/17 19:14 atrial fib at 95 bpm, normal axis, + ectopy, poor baseline, qs in leads V1-2, non-specific st-t changes, ABNL EKG; no gross changes compare with old ekg 2016 Interpreted by ED Physician: Yes Type: 12 lead EKG Comparison: Similar to previous EKG - Medication Orders Current Medication Orders: Discontinued Medications Ceftriaxone Sodium (Rocephin 1 Gram Ivpb) 1 gm in 100 mls @ 200 mls/hr IVPB STAT STA PRN Reason: Protocol Stop: 11/10/17 22:19 Last Admin: 11/10/17 22:15 Dose: 200 mls/hr eMAR Start Stop Document 11/10/17 22:15 [place] (Rec: 11/10/17 22:17 [place] [facility] [id number]) Intravenous Solution Start Date 11/10/17 Start Time 22:17 End Date 11/10/17 End time 22:47 Total Infusion Time 30 Disposition/Present on Arrival - Present on Arrival Any Indicators Present on Arrival: No History of DVT/PE: No History of Uncontrolled Diabetes: No Urinary Catheter: No History of Decub. Ulcer: No History Surgical Site Infection Following: None - Disposition Have Diagnosis and Disposition been Completed?: Yes Diagnosis: Syncope and collapse, UTI (urinary tract infection), Coumadin toxicity Disposition: HOSPITALIZED Disposition Time: 21:30 Patient Plan: Admission, Telemetry Patient Problems: Current Active Problems Problem Status Onset UTI (urinary tract infection) Acute Syncope and collapse Acute Condition: STABLE
[2017-11-10 20:02] LABS: BASO # 0.01 K/mm3 (0.0-2.0); BASO % 0.1 % (0.0-3.0); EOS % 0.1 % (1.5-5.0); GRAN # 12.7 (1.4-6.5); GRAN % 81.4 % (50.0-68.0); HEMOGLOBIN 13.1 g/dL (12.0-16.0); LYMPH # 1.5 (1.2-3.4); LYMPH % 9.6 % (22.0-35.0); MEAN CELL VOLUME 90.8 fl (80.0-105.0); MEAN PLATELET VOLUME 9.5 fl (7.0-11.0); MONO # 1.4 (0.1-0.6); MONO % 8.8 % (1.0-6.0); RBC 4.37 10^6/uL (3.5-6.1); RED CELL DISTRIBUTION WIDTH 16.7 % (11.5-14.5); WHITE BLOOD COUNT 15.6 10^3/ul (4.5-11.0)
[2017-11-10 20:05] LABS: ALB/GLOB RATIO 1.1 (1.1-1.8); ALBUMIN 4.3 g/dL (3.0-4.8); ALT/SGPT 17 U/L (7-56); AST/SGOT 31 U/L (14-36); BLOOD UREA NITROGEN 13 mg/dL (7-21); GFR AFRICAN-AMERICAN > 60; GFR NON-AFRICAN AMERICAN > 60; LIPASE 64 U/L (23-300)
[2017-11-10 20:12] LABS: PARTIAL THROMBOPLASTIN TIME 56.1 Seconds (25.1-36.5); PROTHROMBIN TIME 60.4 SECONDS (9.4-12.5)
[2017-11-10 20:14] LABS: INR 5.12 (0.93-1.08)
[2017-11-10 20:16] LABS: TROPONIN I < 0.01 ng/mL
--- NOTE | 2017-11-10 21:38 | CT ---
EXAM: CT Head Without Intravenous Contrast CLINICAL HISTORY: 82 years old, female; Injury or trauma; Fall; Initial encounter; Concussion / head injury; Without loss of consciousness; Injury date: 11-10-17; Additional info: Syncope TECHNIQUE: Axial computed tomography images of the head/brain without intravenous contrast. All CT scans at this facility use one or more dose reduction techniques, viz.: automated exposure control; ma/kV adjustment per patient size (including targeted exams where dose is matched to indication; i.e. head); or iterative reconstruction technique. Coronal and sagittal reformatted images were created and reviewed. COMPARISON: CT - HEAD W/O CONTRAST 2017-04-04 14:01 FINDINGS: Brain: Moderate atrophy. No intracranial hemorrhage. No mass. Few scattered foci of decreased attenuation within periventricular/subcortical white matter. No edema. Ventricles: No hydrocephalus. Bones/joints: No acute fracture. Incomplete closure of C1 ring, normal variant. Soft tissues: Unremarkable. Vasculature: Atherosclerotic disease of intracranial arteries. Sinuses: Scattered minimal mucosal thickening of ethmoid sinuses. Mastoid air cells: No mastoid effusion. Orbits: Unremarkable as visualized. IMPRESSION: 1. No intracranial hemorrhage. 2. Nonspecific white matter changes. 3. Incidental/non-acute findings are described above.
[2017-11-10] MEDS ORDERED: cefTRIAXone 1 gm 1 GM/100 ML BAG IVPB STA (21:50)
[2017-11-10 22:21] LABS: PH,URINE 5.5 (4.7-8.0); URINE BILIRUBIN NEGATIVE (NEGATIVE); URINE BLOOD LARGE (NEGATIVE); URINE GLUCOSE (UA) NEGATIVE (NEGATIVE); URINE LEUKOCYTE ESTERASE SMALL Leu/uL (NEGATIVE); URINE PROTEIN >=300 mg/dL (<30 mg/dL); URINE UROBILINOGEN 0.2 E.U./dL (<1 E.U./dL)
[2017-11-10 22:22] LABS: URINE APPEARANCE TURBID (CLEAR); URINE COLOR RED (YELLOW)
[2017-11-10 22:23] LABS: URINE BACTERIA MANY (NEG); URINE RBC TNTC /hpf (0-2); URINE WBC TNTC /hpf (0-6)
--- NOTE | 2017-11-11 09:21 | RAD ---
PROCEDURE: CHEST RADIOGRAPH, 1 VIEW HISTORY: syncope COMPARISON: 06/04/2017 FINDINGS: LUNGS: Clear. PLEURA: No pneumothorax or pleural fluid seen. CARDIOVASCULAR: Mild cardiomegaly OSSEOUS STRUCTURES: No significant abnormalities. VISUALIZED UPPER ABDOMEN: Normal. OTHER FINDINGS: None. IMPRESSION: No active disease.
[2017-11-11] MEDS: Pantoprazole 40 mg EC Tab PO SCH (09:44)
[2017-11-11] MEDS ORDERED: Enoxaparin 40 mg Syringe SC SCH (10:00)
--- NOTE | 2017-11-11 13:36 | RAD ---
HISTORY: L ureteral stent evaluation COMPARISON: No prior. FINDINGS: BOWEL: Normal. No obstruction. No free air. Decubitus views were also obtained showing no evidence of free air BONES: Normal. OTHER FINDINGS: Left-sided ureteral stent IMPRESSION: No active disease.
[2017-11-11] MEDS: Cefepime 1gm in NS 100ml 1 GM/100 ML BAG IVPB SCH ×2 (16:08→21:55)
--- NOTE | 2017-11-11 16:48 | RAD ---
PROCEDURE: Left Foot Radiographs. HISTORY: pain COMPARISON: None. FINDINGS: BONES: There are no acute fractures seen in the foot. Previous ankle fractures from 06/04/2017. There is some periosteal thickening in the 3rd and 4th metatarsals consistent with previous fractures JOINTS: Normal. SOFT TISSUES: Normal. OTHER FINDINGS: None. IMPRESSION: No acute fractures
--- NOTE | 2017-11-11 17:23 | HP ---
CHIEF COMPLAINT AND HISTORY OF PRESENT ILLNESS: This is an 82-year-old female who is coming into the hospital after she had a fall. She says that she was trying to get out of her commode and she fell. She had difficulty with walking. She was found by her staff and was sent to the ER for further evaluation. The patient denied any syncope. She denied any weakness of the arms or legs that were focal. She has no complaints of any headache. No nausea. No vomiting. No dysuria or frequency. She has no chest pain or shortness of breath. She does say that at times she does get burning when she was urinating at home. She says that she denies any diarrhea. She had no fevers or chills. REVIEW OF SYMPTOMS: All other review of symptoms are within normal limits except that was mentioned. ALLERGIES: NO KNOWN DRUG ALLERGIES. HOME MEDICATIONS: Tylenol, aspirin. Lipitor, Colace, Neurontin, Cozaar, Protonix. PAST MEDICAL HISTORY: 1. Atrial fibrillation, on Coumadin. 2. Hypertension. 3. Dyslipidemia. 4. Coronary artery disease with stent. 5. Left kidney stones with hydroureter, status post stent. FAMILY HISTORY: Noncontributory. SOCIAL HISTORY: She never smoked. She denies alcohol or drugs. She lives with her . PHYSICAL EXAMINATION: VITAL SIGNS: Temperature is 98.5, pulse of 84, blood pressure is 142/76, respirations 20, O2 saturation is 96%. Height is 5 feet 9 inches. Weight is 180 pounds. BMI is 26.6. GENERAL: The patient lying in bed, uncomfortable, and in no acute distress. HEENT: Atraumatic and normocephalic. Anicteric sclerae. Moist mucosa. [place] conjunctivae. No oral lesions. NECK: No JVD, anterior and posterior adenopathy, thyromegaly, or bruits. CARDIOVASCULAR: S1 and S2 regular. No murmur, rubs, or gallop. LUNGS: Clear to auscultation bilaterally. No wheezes, rales, or rhonchi. ABDOMEN: Bowel sounds are positive. Soft, nontender and nondistended. No hepatosplenomegaly. No rebound and no guarding EXTREMITIES: No cyanosis, clubbing, or edema. NEUROLOGIC: No facial asymmetry. Tongue is midline. No uvula deviation. Power is 5/5 upper extremity and lower extremity. Sensation intact in upper extremity and lower extremity. PSYCHIATRIC: She is awake, alert and oriented x3. No anxiety or depression. She has normal affect. GENITOURINARY: No CVA tenderness. VASCULAR: 2+ pulses in the carotid pulses and pedal pulses. SKIN: No erythema or nodules SPINE: Shows normal curvature. LABORATORY DATA: White count of 15.6, hemoglobin 13.1, platelet count is 281. Chemistry shows a creatinine of 0.6. Calcium is 11. Troponin is 0.01. Urine shows ketones are trace, blood is large, nitrites are positive. The chest x-ray shows no infiltrates. CT of the head, no intracranial hemorrhage, nonspecific white matter changes. ASSESSMENT: 1. Fall. 2. Urinary tract infection. 3. Hypertension. 4. Atrial fibrillation, on Coumadin. 5. Dyslipidemia. 6. Coronary artery disease. 7. Left-sided nephrolithiasis. 8. Pulmonary hypertension. PLAN: The patient is currently comfortable. The patient is to be admitted to the hospital because of fall. She had elevated white count. Urinalysis is abnormal. 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 The patient is going to be seen by Infectious Disease. She is going to continue her losartan. She is on Lipitor for her dyslipidemia. She is going to continue her aspirin for coronary artery disease. She is on Neurontin for her neuropathy. The patient is on amlodipine for her hypertension. She is going to continue with Protonix. She is interested in getting physical therapy, so we will see if she qualifies. I will get Physical Therapy to evaluate the patient. Moreno Lazo MD
--- NOTE | 2017-11-11 19:43 | CARD ---
APPROVED REPORT EKG Measurement Heart [id number] <Conclusion> Atrial fibrillation, PVCs vs aberrancy Rightward axis Low voltage QRS Septal infarct, age undetermined Abnormal ECG
[2017-11-12] MEDS: Cefepime 1gm in NS 100ml 1 GM/100 ML BAG IVPB SCH ×3 (05:27→21:31)
[2017-11-12 06:30] LABS: HEMOGLOBIN 11.6 g/dL (12.0-16.0); MEAN CELL VOLUME 90.9 fl (80.0-105.0); MEAN CORPUSCULAR HEMOGLOBIN 29.2 pg (25.0-35.0); MEAN CORPUSCULAR HGB CONC 32.1 g/dl (31.0-37.0); MEAN PLATELET VOLUME 10.1 fl (7.0-11.0); RBC 3.97 10^6/uL (3.5-6.1); RED CELL DISTRIBUTION WIDTH 17.5 % (11.5-14.5); WHITE BLOOD COUNT 10.8 10^3/ul (4.5-11.0)
[2017-11-12 07:00] LABS: INR 3.23 (0.93-1.08); PROTHROMBIN TIME 38.1 SECONDS (9.4-12.5)
[2017-11-12 07:08] LABS: ALB/GLOB RATIO 1.1 (1.1-1.8); ALBUMIN 3.6 g/dL (3.0-4.8); ALT/SGPT 19 U/L (7-56); AST/SGOT 25 U/L (14-36); BLOOD UREA NITROGEN 19 mg/dL (7-21); CALCIUM 10.5 mg/dL (8.4-10.5); GFR AFRICAN-AMERICAN > 60; GFR NON-AFRICAN AMERICAN > 60
--- NOTE | 2017-11-12 08:19 | CON ---
DATE: 11/11/2017 CONSULTATION CHIEF COMPLAINT: Falls at home. HISTORY OF PRESENT ILLNESS: This is an 82-year-old female who was seen at [facility]. The patient was admitted after a fall at home. The patient was trying to get out of her commode and she fell. She has had difficulty ambulating. She was found on the floor and sent to the emergency room for further evaluation. She denies any loss of consciousness, denies hitting her head. She does report dysuria, urinary frequency and urgency. She denies any fever or chills. The patient has a history of an indwelling left stent that was placed about one year ago. Months ago, my office had contacted the patient as she needed to have the stent removed or changed. The patient refused at that time and was insisting that she did not have an indwelling stent. We also spoke with the patient's , who reported that the patient did not have a stent; however, according to our records, the patient does continue to have an indwelling stent, which has not been removed. PAST MEDICAL HISTORY: Significant for atrial fibrillation, hypertension, dyslipidemia, coronary artery disease, urinary tract infections with hydronephrosis and an indwelling left stent. FAMILY HISTORY: Noncontributory. SOCIAL HISTORY: No smoking or EtOH use. HOME MEDICATIONS: Include Tylenol, aspirin, Lipitor, Colace, Neurontin, Cozaar, Protonix, currently on Rocephin. ALLERGIES: NO KNOWN DRUG ALLERGIES. REVIEW OF SYSTEMS: Patient is awake and answering questions, although poor historian, still reports that she does not have a stent, positives as per the HPI. PHYSICAL EXAMINATION VITAL SIGNS: She is afebrile, temp of 98.5, pulse of 84, BP 142/76, respirations 20. NECK: Supple. There is no adenopathy. CHEST: Reveals a normal inspiratory effort. CARDIAC: Shows positive S1, S2. There is some mild peripheral edema noted. ABDOMEN: Soft, nontender, nondistended. There is no hepatosplenomegaly. There is no costovertebral angle tenderness. There is no rebound or guarding. EXTREMITIES: No cyanosis. There is mild edema. LABORATORY EXAM: WBC count 15.6, creatinine 0.6 with a GFR greater than 60. Urinalysis positive nitrates, large blood, too numerous to count rbc, too numerous to count wbc. IMPRESSION AND PLAN: This is an 82-year-old female with history of an indwelling stent, admitted now after a fall with an apparent urinary tract infection. Urologically, the plan will be to obtain a KUB at this point to document that the stent is still in place. The patient has been started on IV antibiotics and we will await the results of her urine culture. When patient is adequately recovered, I will take patient to the operating room for a stent removal and retrograde pyelogram. If no evidence of obstruction, I would plan on leaving the stent out as patient is at high risk to not return. Need to check coags as patient has been on Coumadin and can plan on taking to the OR when she is medically cleared given her other medical problems. Thank you for allowing us to participate in the care of this patient. Vipul Rivero MD
[2017-11-12] MEDS: Pantoprazole 40 mg EC Tab PO SCH (09:24)
--- NOTE | 2017-11-12 23:46 | CP.PCM.PN ---
Subjective - Date & Time of Evaluation Date of Evaluation: 11/12/17 Time of Evaluation: 23:45 - Subjective Subjective: Seen at bedside. Has pain in left ankle. No other complaints. Medical record was reviewed. This 82 year old white woman was admitted with difficulty in walking after a fall,UTI. Has PMH of atrial fibrillation, HTN, dyslipidemia, CAD,left kidney stone, pulmonary HTN. Objective - Vital Signs/Intake and Output Vital Signs (last 24 hours): Temp Pulse Resp BP Pulse Ox 97.6 F 77 20 134/70 98 11/12/17 16:00 11/12/17 16:00 11/12/17 16:00 11/12/17 16:00 11/12/17 16:00 Intake and Output: 11/12/17 11/13/17 18:59 06:59 Intake Total 300 Balance 300 - Medications Medications: Current Medications Amlodipine Besylate (Norvasc) 10 mg PO DAILY [facility] Last Admin: 11/12/17 09:28 Dose: 10 mg Aspirin (Aspirin Chewable) 81 mg PO DAILY [facility] Last Admin: 11/12/17 09:24 Dose: 81 mg Atorvastatin Calcium (Lipitor) 10 mg PO DIN [facility] Last Admin: 11/12/17 18:06 Dose: 10 mg Docusate Sodium (Colace) 100 mg PO BID [facility] Last Admin: 11/12/17 18:06 Dose: 100 mg Gabapentin (Neurontin) 300 mg PO TID [facility] PRN Reason: Protocol Last Admin: 11/12/17 18:06 Dose: 300 mg Cefepime HCl (Maxipime 1gm) 1 gm in 100 mls @ 100 mls/hr IVPB Q8 [facility] PRN Reason: Protocol Stop: 11/20/17 15:46 Last Admin: 11/12/17 21:31 Dose: 100 mls/hr Losartan Potassium (Cozaar) 12.5 mg PO DAILY [facility] Last Admin: 11/12/17 09:24 Dose: 12.5 mg Pantoprazole Sodium (Protonix Ec Tab) 40 mg PO DAILY [facility] Last Admin: 11/12/17 09:24 Dose: 40 mg Phytonadione (Vitamin K Tab) 5 mg PO ONCE ONE Stop: 11/13/17 18:41 - Labs Labs: 11/12/17 05:30 11/12/17 05:30 PT 38.1 SECONDS (9.4-12.5) H 11/12/17 05:30 INR 3.23 (0.93-1.08) H 11/12/17 05:30 APTT 56.1 Seconds (25.1-36.5) H 11/10/17 19:40 - Constitutional Appears: Well, No Acute Distress - Head Exam Head Exam: ATRAUMATIC, NORMAL INSPECTION, NORMOCEPHALIC - Eye Exam Eye Exam: Normal appearance - ENT Exam ENT Exam: Normal External Ear Exam - Neck Exam Neck Exam: Normal Inspection - Respiratory Exam Respiratory Exam: NORMAL BREATHING PATTERN - Cardiovascular Exam Cardiovascular Exam: absent: JVD - GI/Abdominal Exam GI & Abdominal Exam: absent: Distended - Rectal Exam Rectal Exam: Deferred - Exam Additional comments: Deferred. - Extremities Exam Extremities Exam: Normal Inspection - Back Exam Back Exam: NORMAL INSPECTION - Neurological Exam Neurological Exam: Alert, Awake - Psychiatric Exam Psychiatric exam: Normal Affect, Normal Mood - Skin Skin Exam: Normal Color Assessment and Plan - Assessment and Plan (Free Text) Assessment: S/P fall. Post traumatic osteoarthritis of left ankle. UTI. Indwelling stent, S/P replacement . HTN. Dyslipidemia. Atrial fibrillation. CAD. Plan: Toradol 15 mg IV x 1. Continue present management.
--- NOTE | 2017-11-13 00:02 | PN ---
DATE: 11/12/2017 SUBJECTIVE: The patient has no complaints of any chest pain or shortness of breath. No headaches. She says that she was having burning that has improved. She is currently comfortable. She has difficulty at times in ambulating because of her left ankle that was previously fractured. PHYSICAL EXAMINATION: VITAL SIGNS: Temperature is 97.6, pulse of 77, blood pressure is 134/70, and respirations 20. GENERAL: The patient is lying in bed, flat, comfortable. HEENT: No oral lesion. Anicteric sclerae. Moist mucosa. NECK: No JVD, adenopathy, or thyromegaly. CARDIOVASCULAR: S1 and S2, regular. No murmurs, rubs, or gallops. LUNGS: Clear to auscultation bilaterally. No wheeze, rales, or rhonchi. ABDOMEN: Bowel sounds are positive, soft, nontender and nondistended. EXTREMITIES: No cyanosis, clubbing, or edema. LABORATORY DATA: White count 10.8, hemoglobin 11.6. Creatinine 0.8. Foot x-ray done shows the previous ankle fracture that shows periosteal thickening, no acute findings. An abdominal x-ray done shows left-sided ureteral stent. ASSESSMENT: 1. Fall. 2. Urinary tract infection secondary to gram-negative rods. 3. Hypertension. 4. Atrial fibrillation, on Coumadin. 5. Left-sided nephrolithiasis with left ureteral stent. 6. Pulmonary hypertension. 7. Dyslipidemia. PLAN: The patient is currently comfortable. She is getting IV antibiotics. The patient had a stent that was placed back in June 2017 and did not come up for followup. Multiple attempts were made by Dr. Rivero to have her come for followup, but she was unable to. Phone calls to her home, according to Dr. Rivero, were picked up by her who said that she does not have a ureteral stent. I spoke to the patient's daughter today and also spoke to the patient. The patient is going to have a stent removal done by Dr. Rivero tomorrow. She is also going to subacute rehab. photographic process worker was contacted to find if there is a rehab that the patient will qualify for. She is on Cozaar for hypertension. She is on aspirin. She is going to continue with Neurontin for neuropathy. . She is on Tylenol as needed. The patient also had an elevated INR, the patient's INR is 3.2 today. Her Coumadin is on hold. Moreno Lazo MD
--- NOTE | 2017-11-13 03:25 | CON ---
DATE: 11/12/2017 LOCATION: The patient is in room 360, bed 1 but seen early this morning. CHIEF COMPLAINT: Low-grade fevers times several days. HISTORY OF PRESENT ILLNESS: This is an 82-year-old female with past medical history of atrial fibrillation, hyperlipidemia, history of osteoporosis, hypertension, coronary artery disease, venous disease, arthritis, and zoster, left ankle fracture in the past, history of urinary tract infections with streptococcus and Klebsiella, TIA, E. coli urinary tract infection, nephrolithiasis, admitted with syncope, weakness and urinary tract infection and the patient has had low-grade fevers. The patient has dysuria and frequency. No headaches or blurred vision. PAST MEDICAL HISTORY: Significant for atrial fibrillation, hypertension, dyslipidemia, osteoporosis, coronary artery disease, venous disease, arthritis, and zoster, left ankle fracture, right healthcare-associated pneumonia, E. coli urinary tract infection, nephrolithiasis, TIA, and urinary tract infection with Klebsiella and strep. PAST SURGICAL HISTORY: Significant for left ureteral stent and cardiac cath with a PCI. MEDICATIONS: The patient's medications at home revealed the patient to be on Lovenox, Colace, Lipitor, aspirin, Protonix, losartan. PHYSICAL EXAMINATION: GENERAL: The patient is in bed. VITAL SIGNS: Temperature of 99.6, heart rate of 92, blood pressure is 123/60, and respiratory rate of 20. HEENT: Unremarkable. NECK: Supple. LUNGS: Have decreased breath sounds. HEART: Normal S1 and S2. ABDOMEN: Soft, nontender. LABORATORY DATA: Laboratory examination reveals the patient's white count of 15,600, hemoglobin of 13, platelets of 281, 81% granulocytosis. Chemistries reveal the BUN of 13, creatinine of 0.6, alk phos of 152. Urinalysis reveals too numerous to count wbc's, many bacteria. Blood cultures have no growth and the urine cultures have gram-negative nghia. Chest x-ray is reported to be negative. X-ray of the foot is negative. Lungs are clear on chest x-ray. ASSESSMENT AND PLAN: This is an 82-year-old female with atrial fibrillation, hypertension, dyslipidemia, osteoporosis, coronary artery disease, venous disease, urinary tract infection, arthritis, zoster with sepsis secondary to gram-negative nghia in the urine as a source with a left ureteral stent, currently on Maxipime. We will start the patient on Maxipime day #2 and empirically started the patient yesterday on Maxipime last night pending identification of gram-negative nghia. Dr. Vipul Rivero's consultation is reviewed. We will follow closely with you. Josh Omer MD
[2017-11-13] MEDS: Cefepime 1gm in NS 100ml 1 GM/100 ML BAG IVPB SCH (05:11)
[2017-11-13 06:30] LABS: BASO # 0.02 K/mm3 (0.0-2.0); BASO % 0.2 % (0.0-3.0); EOS # 0.5 (0.0-0.7); EOS % 4.5 % (1.5-5.0); GRAN # 6.29 (1.4-6.5); GRAN % 61.7 % (50.0-68.0); HEMOGLOBIN 11.1 g/dL (12.0-16.0); LYMPH # 2.3 (1.2-3.4); LYMPH % 22.9 % (22.0-35.0); MEAN CELL VOLUME 91.2 fl (80.0-105.0); MEAN CORPUSCULAR HEMOGLOBIN 29.4 pg (25.0-35.0); MEAN CORPUSCULAR HGB CONC 32.3 g/dl (31.0-37.0); MEAN PLATELET VOLUME 10.1 fl (7.0-11.0); MONO # 1.1 (0.1-0.6); MONO % 10.7 % (1.0-6.0); RBC 3.77 10^6/uL (3.5-6.1); RED CELL DISTRIBUTION WIDTH 17.6 % (11.5-14.5); WHITE BLOOD COUNT 10.2 10^3/ul (4.5-11.0)
[2017-11-13 07:14] LABS: INR 1.82 (0.93-1.08); PARTIAL THROMBOPLASTIN TIME 36.1 Seconds (25.1-36.5); PROTHROMBIN TIME 21.2 SECONDS (9.4-12.5)
[2017-11-13 07:19] LABS: ALBUMIN 3.4 g/dL (3.0-4.8); ALT/SGPT 15 U/L (7-56); AST/SGOT 19 U/L (14-36); BLOOD UREA NITROGEN 19 mg/dL (7-21); CALCIUM 10.2 mg/dL (8.4-10.5); GFR AFRICAN-AMERICAN > 60; GFR NON-AFRICAN AMERICAN > 60
[2017-11-13] MEDS: ceFAZolin 1 gm in NS 1 GM/100 ML BAG IVPB SCH ×2 (09:08→14:21)
[2017-11-13] MEDS ORDERED: cefTRIAXone (Rocephin) 1 gm Inj ONE (09:14)
[2017-11-13] MEDS ORDERED: Iohexol 240 (50 ml) ONE (09:14)
[2017-11-13] MEDS ORDERED: Propofol 10 mg/ml Inj (20 ML) ONE (09:45)
[2017-11-13] MEDS ORDERED: Etomidate 20 mg/10ml Inj IV ONE (09:45)
[2017-11-13] MEDS ORDERED: CeFAZolin 1 gm in NS 100ml IVPB ONE (09:50)
[2017-11-13] MEDS ORDERED: Iohexol 240 (50 ml) UR ONE (10:04)
[2017-11-13] MEDS ORDERED: Morphine 2 mg/ml ISec IVP PRN (10:49)
[2017-11-13] MEDS ORDERED: Lactated Ringer's 1,000 ML IV SCH (11:00)
[2017-11-13] MEDS ORDERED: Morphine 4 mg/ml ISec ONE (12:29)
--- NOTE | 2017-11-13 13:40 | RAD ---
PROCEDURE: Retrograde pyelogram HISTORY: REMOVAL INSERTION STENT COMPARISON: TECHNIQUE: Fluoroscopy was provided in the operating room. 71.3 seconds of fluoro time. Cumulative dose 19.40 mGy. Three images were submitted FINDINGS: There is placement of a left ureteral stent IMPRESSION: As above
--- NOTE | 2017-11-13 14:10 | RAD ---
PROCEDURE: Left Ankle Radiographs. HISTORY: posttraumatic arthritis COMPARISON: 06/04/2017 FINDINGS: BONES: The cast is been removed. There is healing of the distal fibular fracture with callus formation. There is a displaced fracture of the medial malleolus and dislocation of the ankle joint. JOINTS: Normal. No osteoarthritis. Ankle mortise maintained. Talar dome intact SOFT TISSUES: Normal. OTHER FINDINGS: None. IMPRESSION: The cast has been removed. There is healing of the distal fibular fracture with callus formation. There is a displaced fracture of the medial malleolus and dislocation of the ankle joint.
--- NOTE | 2017-11-13 15:33 | CON ---
DATE: The patient is admitted for other reason than her pain in her left ankle. X-rays of the foot show a displaced healed left ankle fracture with lateral malleolar fracture and talar subluxation of the left ankle. The initial injury occurred on 06/04/2017 and at that time, we elected to treat her conservatively because she does not have any ability to comprehend protocol of a fractured ankle by not walking on it, she does not appear to comprehend that she cannot put weight on healing ankle fracture so even though that fracture happened in 06/04/2017, the fracture eventually went into malunion and with posttraumatic osteoarthritis and lateral talus subluxation. So at this time, she has osteoarthritis, posttraumatic, at the left ankle with a deformity due to the lateral subluxation of the talus, but at rest, she has no pain, minimal tenderness, no swelling but approach towards the idea of doing an intermedullary nghia for tibiotalar calcaneal fusion and she does not comprehend that you will not be able to put weight on it for three months after the surgery because then other problems could arise like hardware failure. As it is now, she has no pain until she starts to ambulate but she does not wear the protective brace either and she lives at home with her . We will try to again not do surgery and protect her with an easily removable Aircast and hopefully, that will help her symptoms as she is only a room ambulator at this time and no surgery is is planned due to very high risks of complications that are going to be worse than the present problem of arthritis with pain just with ambulation, but there is no pain when she is confined to her room and in a wheelchair and with minimal ambulation, but she has done this and she has to wear the protective brace but that is even going to be hard to do. So still avoid surgery at this time because of the high chance of major complications that are basically not understanding or comprehending the need for no weightbearing to allow the procedure to function and not put weight on it, but she does not comprehend that part of it, so I will try to get a brace that we could put on her and to wear with a good shoe that holds the brace on. FINAL DIAGNOSIS: Posttraumatic osteoarthritis, left ankle. PROGNOSIS: Poor for any surgical intervention, so protect her with conservative therapy and a brace. oJse Hess DO [facility] [place] DIVISIONChloe
[2017-11-13] MEDS ORDERED: Vancomycin 2 GM in Sodium Chloride 0.9% 500 ML IVPB ONE (15:41)
[2017-11-13] MEDS: Cefepime IV 2 gm in NS 2 GM/100 ML BAG IVPB SCH ×2 (15:56→22:03)
--- NOTE | 2017-11-13 16:30 | RAD ---
HISTORY: temp COMPARISON: 11/10/2017 FINDINGS: LUNGS: Right upper lobe infiltrate. PLEURA: No significant pleural effusion identified, no pneumothorax apparent. CARDIOVASCULAR: Cardiomegaly. No evidence of acute, significant cardiovascular disease. OSSEOUS STRUCTURES: No significant abnormalities. VISUALIZED UPPER ABDOMEN: Normal. OTHER FINDINGS: None. IMPRESSION: Acute row at upper lobe infiltrate not seen on the prior study 11/10/2017 therefore likely pneumonia.
[2017-11-13 19:10] LABS: BASO # 0.02 K/mm3 (0.0-2.0); BASO % 0.1 % (0.0-3.0); EOS % 0.2 % (1.5-5.0); GRAN % 86.6 % (50.0-68.0); HEMOGLOBIN 10.6 g/dL (12.0-16.0); LYMPH # 0.8 (1.2-3.4); LYMPH % 4.9 % (22.0-35.0); MEAN CELL VOLUME 90.7 fl (80.0-105.0); MEAN CORPUSCULAR HEMOGLOBIN 29.9 pg (25.0-35.0); MEAN CORPUSCULAR HGB CONC 32.9 g/dl (31.0-37.0); MEAN PLATELET VOLUME 9.7 fl (7.0-11.0); MONO # 1.4 (0.1-0.6); MONO % 8.2 % (1.0-6.0); PLATELET COUNT 181 10^3/uL (120.0-450.0); RBC 3.55 10^6/uL (3.5-6.1); RED CELL DISTRIBUTION WIDTH 17.3 % (11.5-14.5); WHITE BLOOD COUNT 16.5 10^3/ul (4.5-11.0)
[2017-11-13 19:56] LABS: BAND 3 % (0-2); LYMPHOCYTE 4 % (22.0-35.0); MONOCYTE 7 % (1.0-6.0); NEUTROPHIL 86 % (50.0-70.0)
[2017-11-13] MEDS ORDERED: Meropenem 1 GM in Dextrose 5% In Water 100 ML IVPB SCH (23:00)
--- NOTE | 2017-11-13 23:01 | CP.PCM.PN ---
Subjective - Date & Time of Evaluation Date of Evaluation: 11/13/17 Time of Evaluation: 11:30 - Subjective Subjective: Having fevers, also with cough, no nausea. Objective - Vital Signs/Intake and Output Vital Signs (last 24 hours): Temp Pulse Resp BP Pulse Ox 98.8 F 71 18 159/97 H 98 11/13/17 08:30 11/13/17 08:30 11/13/17 08:30 11/13/17 08:30 11/13/17 08:30 Intake and Output: 11/13/17 11/13/17 06:59 18:59 Intake Total 300 Balance 300 - Medications Medications: Current Medications Amlodipine Besylate (Norvasc) 10 mg PO DAILY [facility] Last Admin: 11/12/17 09:28 Dose: 10 mg Aspirin (Aspirin Chewable) 81 mg PO DAILY [facility] Last Admin: 11/12/17 09:24 Dose: 81 mg Atorvastatin Calcium (Lipitor) 10 mg PO DIN [facility] Last Admin: 11/12/17 18:06 Dose: 10 mg Docusate Sodium (Colace) 100 mg PO BID [facility] Last Admin: 11/12/17 18:06 Dose: 100 mg Gabapentin (Neurontin) 300 mg PO TID [facility] PRN Reason: Protocol Last Admin: 11/12/17 18:06 Dose: 300 mg Cefazolin Sodium (Ancef 1gm In Ns) 1 gm in 100 mls @ 100 mls/hr IVPB Q8 JAMES PRN Reason: Protocol Losartan Potassium (Cozaar) 12.5 mg PO DAILY [facility] Last Admin: 11/12/17 09:24 Dose: 12.5 mg Pantoprazole Sodium (Protonix Ec Tab) 40 mg PO DAILY [facility] Last Admin: 11/12/17 09:24 Dose: 40 mg Phytonadione (Vitamin K Tab) 5 mg PO ONCE ONE Stop: 11/13/17 18:41 - Labs Labs: 11/13/17 05:30 11/13/17 05:30 PT 21.2 SECONDS (9.4-12.5) H 11/13/17 05:30 INR 1.82 (0.93-1.08) H 11/13/17 05:30 APTT 36.1 Seconds (25.1-36.5) 11/13/17 05:30 - Constitutional Appears: Chronically Ill - Head Exam Head Exam: NORMAL INSPECTION - Respiratory Exam Respiratory Exam: Decreased Breath Sounds - Cardiovascular Exam Cardiovascular Exam: +S1, +S2 - GI/Abdominal Exam GI & Abdominal Exam: Soft. absent: Tenderness Assessment and Plan - Assessment and Plan (Free Text) Plan: Assessment sepsis due to new onset right sided HCAP on top of E. coli UTI history of UTI with Klebsiella and Strep anginosus left ankle fracture after a fall history of sepsis due to right lower lobe healthcare-associated pneumonia with possible gram positive cocci and/or gram negative bacilli history of E. coli bacteremia associated with UTI and left nephrolithiasis S/P left ureteral stent placement history of acute transient ischemic attack with transient left sided weakness history of urinary tract infection with E. coli history of herpes zoster on the left side of the neck and left ear and post- herpetic neuralgia CAD S/P PCI HTN dyslipidemia Plan will start IV Vancomycin and Merrem and will repeat blood cx, urine cx, PCT; reviewed CXR which shows right upper lobe infiltrate will continue to monitor fever curve
[2017-11-13] MEDS ORDERED: Meropenem IV 1 gm in NS 50 ML IVPB SCH (23:06)
[2017-11-13] MEDS: Meropenem IV 1 gm in NS 50 ML IVPB SCH (23:29)
[2017-11-14] MEDS: Vancomycin 1gm in NS 250ml 1 GM/250 ML BAG IVPB SCH ×3 (00:11→22:26)
--- NOTE | 2017-11-14 02:34 | CP.PCM.PN ---
Subjective - Date & Time of Evaluation Date of Evaluation: 11/14/17 Time of Evaluation: 02:33 - Subjective Subjective: S:Patient seen at bedside. Has cooling blanket on. Nurse requested for tylenol MD instead of PO. Patient has no complaints now. Temp is up to 100.3*F from 99.3*F. When came back from OR temp was 103.8*F.Has stent replacement done. O: Last Vital Signs 3 Temp 100.8 F H 11/14/17 02:42 Pulse 101 H 11/13/17 16:00 Resp 19 11/13/17 16:00 BP 116/59 L 11/13/17 16:00 Pulse Ox 90 L 11/13/17 16:00 Awake, alert,not in distress. LUNGS:Normal breathing pattern. A:Fever. P:Tylenol 650 mg suppository MD stat. Objective - Vital Signs/Intake and Output Vital Signs (last 24 hours): Temp Pulse Resp BP Pulse Ox 99.6 F 101 H 19 116/59 L 90 L 11/13/17 23:00 11/13/17 16:00 11/13/17 16:00 11/13/17 16:00 11/13/17 16:00 - Medications Medications: Current Medications Acetaminophen (Tylenol 325mg Tab) 650 mg PO Q4H PRN PRN Reason: Fever >100.4 F Last Admin: 11/13/17 18:12 Dose: 650 mg Amlodipine Besylate (Norvasc) 10 mg PO DAILY [facility] Last Admin: 11/13/17 14:23 Dose: 10 mg Aspirin (Aspirin Chewable) 81 mg PO DAILY [facility] Last Admin: 11/13/17 10:21 Dose: 81 mg Atorvastatin Calcium (Lipitor) 10 mg PO DIN [facility] Last Admin: 11/13/17 17:09 Dose: 10 mg Docusate Sodium (Colace) 100 mg PO BID [facility] Last Admin: 11/13/17 18:10 Dose: 100 mg Gabapentin (Neurontin) 300 mg PO TID [facility] PRN Reason: Protocol Last Admin: 11/13/17 18:10 Dose: 300 mg Vancomycin HCl (Vancomycin 1gm) 1 gm in 250 mls @ 167 mls/hr IVPB Q12H JAMES PRN Reason: Protocol Last Admin: 11/14/17 00:11 Dose: 167 mls/hr Meropenem (Merrem Iv 1 Gm Premix) 50 mls @ 100 mls/hr IVPB Q8 JAMES PRN Reason: Protocol Last Admin: 11/13/17 23:29 Dose: 100 mls/hr Losartan Potassium (Cozaar) 12.5 mg PO DAILY [facility] Last Admin: 11/13/17 14:22 Dose: 12.5 mg Ondansetron HCl (Zofran Inj) 4 mg IVP ONCE PRN PRN Reason: Nausea/Vomiting Pantoprazole Sodium (Protonix Ec Tab) 40 mg PO DAILY [facility] Last Admin: 11/12/17 09:24 Dose: 40 mg - Labs Labs: 11/13/17 19:06 11/13/17 05:30 PT 21.2 SECONDS (9.4-12.5) H 11/13/17 05:30 INR 1.82 (0.93-1.08) H 11/13/17 05:30 APTT 36.1 Seconds (25.1-36.5) 11/13/17 05:30
--- NOTE | 2017-11-14 03:11 | DS ---
HISTORY OF PRESENT ILLNESS: This is an 82-year-old female, who was admitted to the hospital after a fall. The patient was found to have a UTI secondary to gram-negative rods. The patient also has a left ureteral stent that was placed about 1 year ago and has never been removed. She is going to the OR today to have removal of her stent. The patient has been complaining of left ankle pain. She was seen by the house doctor and given Toradol. Dr. Hess is going to evaluate the patient, this is chronic in nature and most likely does not require surgical intervention. She is willing to go to subacute rehab. The patient is on Colace for constipation and Lipitor for dyslipidemia. The patient is on cefepime for her antibiotics. She is on Norvasc for hypertension. She was given vitamin K because she is going to have her procedure done this morning. The patient may have some bleeding because the stent has been in place for about a year. I did speak to Dr. Rivero regarding this. Currently, the patient is n.p.o. If the patient is stable after the procedure, we will most likely discharge the patient to subacute rehab. CONDITION: Stable. ACTIVITIES: Increase as tolerated. Moreno Lazo MD
[2017-11-14] MEDS: Meropenem IV 1 gm in NS 50 ML IVPB SCH ×3 (05:44→21:18)
--- NOTE | 2017-11-14 14:44 | PN ---
DATE: 11/14/2017 SUBJECTIVE: The patient is being followed for posttraumatic osteoarthritis of the left ankle where she had a recent fracture back on 06/04/2017. It was unable to be operated on because she has a poor compliance and she would never be nonweightbearing and the risk would outweigh her benefits because she displaced a fracture walking on it with the plate that would not be held with the osteopenic bone. The plate could come out of the skin and she could get osteomyelitis and postop infection. So we treated conservatively and she still continued to walk on the ankle, it eventually healed with posttraumatic osteoarthritis and subluxation of the talus. I just treated her today with a more manageable brace on her left ankle that would help support the ankle when she ambulates because she does have a valgus tilt of the foot. I put on a well-padded Aircast held on with a postop shoe with Velcro straps and hopefully the will be able to apply this when she gets up before she ambulates and she needs to walk with a walker. I will follow her while she is in the hospital and hopefully see her as an outpatient if she needs to, but really she is a room ambulator and not to do stairs, but the fracture is healed with posttraumatic osteoarthritis, but otherwise it is stable and she may need a good prosthetic shoe from a shoemaker that makes orthopedic devices, which would give her a contoured shoe, but we will do that as an outpatient. Jose Hess DO
--- NOTE | 2017-11-14 19:24 | PN ---
DATE: SUBJECTIVE: The patient has no complaints of any chest pain. No shortness of breath. She has been having mild confusion. She has been having high fevers ever since her stent was replaced. OBJECTIVE: VITAL SIGNS: Temperature is 102, blood pressure is 123/59, respiratory rate is 18, O2 saturation 97%. GENERAL: The patient is lying in bed, flat, comfortable. HEENT: No oral lesion. Anicteric sclerae. Moist mucosa. NECK: No JVD, adenopathy, or thyromegaly. CARDIOVASCULAR: S1 and S2, regular. No murmurs, rubs, or gallops. LUNGS: Clear to auscultation bilaterally. No wheeze, rales, or rhonchi. ABDOMEN: Bowel sounds are positive, soft, nontender and nondistended. EXTREMITIES: No cyanosis, clubbing or edema. ASSESSMENT: 1. Fall. 2. Sepsis. 3. Left ureteral stent replacement. 4. Urinary tract infection secondary to Escherichia coli. 5. Hypertension. 6. Atrial fibrillation, on Coumadin. 7. Left-sided nephrolithiasis. 8. Pulmonary hypertension. 9. Dyslipidemia. PLAN: The patient had a stent that was in place for more than a year. The patient continues to have fevers. She is on aspirin. She is going to continue with Colace. She is on Lipitor for dyslipidemia. She is on Norvasc for her hypertension. The patient was having hematuria post procedure, her Coumadin has been placed on hold. She is on amlodipine for her hypertension. She has urine cultures that are pending. I did speak to Dr. Omer today and Dr. Rivero yesterday regarding the patient's condition. We will repeat blood work tomorrow. Moreno Lazo MD
[2017-11-14] MEDS ORDERED: Micafungin 100 MG in Sodium Chloride 0.9% 100 ML IV SCH (23:30)
--- NOTE | 2017-11-14 23:58 | PN ---
DATE: 11/14/2017 SUBJECTIVE: The patient is in bed, in no acute distress. Patient was seen this morning, she was feeling ill. She continues to have fevers. PHYSICAL EXAMINATION: VITAL SIGNS: Temperature is 102, blood pressure is 145/80, respiratory rate of 91, heart rate of 20. HEENT: Unremarkable. NECK: Supple. LUNGS: Have decreased breath sounds. HEART: Normal S1, S2. ABDOMEN: Soft, nontender. LABORATORY EXAMINATION: Reveals a white count of 16,500, hemoglobin of 10, platelets of 181. Chemistries reveal a BUN of 19, creatinine of 0.6. Procalcitonin is 27.23. Urinalysis is noted. Serology, influenza is negative. Microbiology reveals E. Coli in the urine. Blood cultures from yesterday are reported to be no growth. The E. Coli is pansensitive. Review of orders reveal the patient to be on meropenem and was given a dose of vancomycin. Dr. Lazo's note from today is reviewed. ASSESSMENT AND PLAN: This an 82-year-old female with sepsis due to new onset of right-sided healthcare-associated pneumonia on top of Escherichia coli and history of urinary tract infection with Klebsiella and Streptococcus anginosus and left ankle fracture after a fall, on vancomycin and meropenem, with repeat blood cultures negative. Chest x-ray from yesterday reveals right upper lobe infiltrate and an elevated procalcitonin of 27. Patient was on vancomycin and meropenem, adequate antibiotic therapy with persistent fevers with bacterial healthcare-associated pneumonia and sepsis. We will order a CT of the abdomen to rule out intra-abdominal source. Patient had Urology procedure with Dr. Rivero yesterday with cystoscopy and Pigtail stent consistent with stone fragments lithotripsy from the left ureter. We will follow closely with you. Antibiotic steel, the patient is adequately covered. Josh Omer MD
--- NOTE | 2017-11-15 03:13 | CP.PCM.PN ---
Subjective - Date & Time of Evaluation Date of Evaluation: 11/15/17 Time of Evaluation: 03:13 - Subjective Subjective: # 20 angiocath was inserted in right hand dorsum. Objective - Vital Signs/Intake and Output Vital Signs (last 24 hours): Temp Pulse Resp BP Pulse Ox 99.7 F H 91 H 20 131/63 94 L 11/15/17 01:10 11/14/17 20:30 11/14/17 20:30 11/14/17 20:30 11/14/17 20:30 Intake and Output: 11/14/17 11/15/17 18:59 06:59 Intake Total 300 Balance 300 - Medications Medications: Current Medications Acetaminophen (Tylenol 325mg Tab) 650 mg PO Q4H PRN PRN Reason: Fever >100.4 F Last Admin: 11/14/17 21:15 Dose: 650 mg Amlodipine Besylate (Norvasc) 10 mg PO DAILY [facility] Last Admin: 11/14/17 09:42 Dose: 10 mg Aspirin (Aspirin Chewable) 81 mg PO DAILY [facility] Last Admin: 11/14/17 09:40 Dose: 81 mg Atorvastatin Calcium (Lipitor) 10 mg PO DIN [facility] Last Admin: 11/14/17 18:56 Dose: 10 mg Docusate Sodium (Colace) 100 mg PO BID [facility] Last Admin: 11/14/17 18:55 Dose: 100 mg Gabapentin (Neurontin) 300 mg PO TID [facility] PRN Reason: Protocol Last Admin: 11/14/17 18:56 Dose: 300 mg Vancomycin HCl (Vancomycin 1gm) 1 gm in 250 mls @ 167 mls/hr IVPB Q12H [facility] PRN Reason: Protocol Last Admin: 11/14/17 22:26 Dose: 167 mls/hr Meropenem (Merrem Iv 1 Gm Premix) 50 mls @ 100 mls/hr IVPB Q8 JAMES PRN Reason: Protocol Last Admin: 11/14/17 21:18 Dose: 100 mls/hr Sodium Chloride (Sodium Chloride 0.9%) 1,000 mls @ 75 mls/hr IV .[id number] JAMES Micafungin Sodium 100 mg/ (Sodium Chloride) 100 mls @ 100 mls/hr IV DAILY [facility] PRN Reason: Protocol Stop: 11/28/17 23:31 Last Admin: 11/14/17 23:52 Dose: 100 mls/hr Losartan Potassium (Cozaar) 12.5 mg PO DAILY [facility] Last Admin: 11/14/17 09:41 Dose: 12.5 mg Ondansetron HCl (Zofran Inj) 4 mg IVP ONCE PRN PRN Reason: Nausea/Vomiting Pantoprazole Sodium (Protonix Ec Tab) 40 mg PO DAILY [facility] Last Admin: 11/12/17 09:24 Dose: 40 mg - Labs Labs: 11/13/17 19:06 11/13/17 05:30 PT 21.2 SECONDS (9.4-12.5) H 11/13/17 05:30 INR 1.82 (0.93-1.08) H 11/13/17 05:30 APTT 36.1 Seconds (25.1-36.5) 11/13/17 05:30
[2017-11-15] MEDS: Meropenem IV 1 gm in NS 50 ML IVPB SCH ×3 (05:47→21:08)
[2017-11-15 07:15] LABS: HEMOGLOBIN 10.3 g/dL (12.0-16.0); MEAN CELL VOLUME 90.3 fl (80.0-105.0); MEAN CORPUSCULAR HEMOGLOBIN 29.5 pg (25.0-35.0); MEAN CORPUSCULAR HGB CONC 32.7 g/dl (31.0-37.0); MEAN PLATELET VOLUME 10.5 fl (7.0-11.0); RBC 3.49 10^6/uL (3.5-6.1); RED CELL DISTRIBUTION WIDTH 17.5 % (11.5-14.5); WHITE BLOOD COUNT 9.9 10^3/ul (4.5-11.0)
[2017-11-15 07:27] LABS: ALBUMIN 3.3 g/dL (3.0-4.8); ALT/SGPT 66 U/L (7-56); AST/SGOT 142 U/L (14-36); BLOOD UREA NITROGEN 18 mg/dL (7-21); CALCIUM 10.1 mg/dL (8.4-10.5); GFR AFRICAN-AMERICAN > 60; GFR NON-AFRICAN AMERICAN > 60
[2017-11-15] MEDS ORDERED: Barium Sulfate Susp 2.1% w/v, 2.0% w/w 450 mL Bottle PO ONE (07:38)
[2017-11-15] MEDS: Micafungin 100 MG in Sodium Chloride 0.9% 100 ML IV SCH (09:14)
[2017-11-15] MEDS ORDERED: Fluconazole IV 200mg/100 ml NS 100 MG in Premixed IV 1 EA IVPB SCH (10:00)
[2017-11-15] MEDS: Vancomycin 1gm in NS 250ml 1 GM/250 ML BAG IVPB SCH ×2 (10:44→22:04)
[2017-11-15] MEDS ORDERED: Albuterol-Ipratrop 3 mg / 0.5 (3 ml) UD IH PRN (13:29)
--- NOTE | 2017-11-15 14:23 | CT ---
PROCEDURE: CT Abdomen and Pelvis with contrast HISTORY: fever COMPARISON: 12/09/2016 TECHNIQUE: Oral contrast only. Radiation dose: Total exam DLP = mGy-cm. This CT exam was performed using one or more of the following dose reduction techniques: Automated exposure control, adjustment of the mA and/or kV according to patient size, and/or use of iterative reconstruction technique. FINDINGS: LOWER THORAX: Unremarkable. LIVER: Unremarkable. No gross lesion or ductal dilatation. GALLBLADDER AND BILE DUCTS: Unremarkable. PANCREAS: Unremarkable. No gross lesion or ductal dilatation. SPLEEN: Unremarkable. ADRENALS: Unremarkable. No mass. KIDNEYS AND URETERS: Right kidney: Nonobstructing lower pole calculi. Renal cysts better characterized on the prior contrast-enhanced study. Left kidney: Nonobstructing lower pole calculus 4 mm. Decrease in perinephric stranding compared to the prior study. Persistent dilatation of left collecting system and ureter. No calculus disease or obstructing lesion. VASCULATURE: Unremarkable. No aortic aneurysm. BOWEL: Unremarkable. No obstruction. No gross mural thickening. APPENDIX: Normal appendix. PERITONEUM: Unremarkable. No free fluid. No free air. LYMPH NODES: Unremarkable. No enlarged lymph nodes. BLADDER: Unremarkable. REPRODUCTIVE: Unremarkable. BONES: No acute fracture. OTHER FINDINGS: Right inguinal hernia containing fluid. IMPRESSION: Bilateral nonobstructing calculi none larger than 5 mm. Persistent left hydronephrosis, hydroureter unchanged compared to prior study. Additional benign and/or incidental findings described above.
[2017-11-15] MEDS: Sodium Chloride 0.9% 1,000 ML IV SCH (14:49)
[2017-11-15 18:13] LABS: HEMOGLOBIN 11.7 g/dL (12.0-16.0); MEAN CELL VOLUME 91.7 fl (80.0-105.0); MEAN CORPUSCULAR HEMOGLOBIN 30.2 pg (25.0-35.0); MEAN PLATELET VOLUME 10.6 fl (7.0-11.0); RBC 3.87 10^6/uL (3.5-6.1); RED CELL DISTRIBUTION WIDTH 17.4 % (11.5-14.5); WHITE BLOOD COUNT 13.2 10^3/ul (4.5-11.0)
--- NOTE | 2017-11-15 19:47 | PN ---
DATE: SUBJECTIVE: This is an 82-year-old female who has no complaints of any chest pain. She says she was able to sleep last night. She does have episodes of confusion at times. She has been having fevers. OBJECTIVE: VITAL SIGNS: Temperature is 99.2, pulse of 80, blood pressure is 189/82, respirations 20. GENERAL: The patient is lying in bed, flat, comfortable. HEENT: No oral lesion. Anicteric sclerae. Moist mucosa. NECK: No JVD, adenopathy, or thyromegaly. CARDIOVASCULAR: S1 and S2, regular. No murmurs, rubs, or gallops. LUNGS: Clear to auscultation bilaterally. No wheeze, rales, or rhonchi. ABDOMEN: Bowel sounds are positive, soft, nontender and nondistended. EXTREMITIES: No cyanosis, clubbing or edema. ASSESSMENT: 1. Fall. 2. Sepsis secondary to the yeast in blood. 3. Left ureteral stent placement. 4. Urinary tract infection secondary to Escherichia coli. 5. Hypertension. 6. Atrial fibrillation, on Coumadin. 7. Left-sided nephrolithiasis. 8. Pulmonary hypertension. 9. Dyslipidemia. PLAN: The patient is currently comfortable. She has LFTs that increased. She is on aspirin. She is going to continue with Colace. She is receiving nebulizer treatments. The patient is on micafungin because of the yeast that was found in blood. She is on Norvasc for hypertension. She has been placed on IV fluids. She is on Zofran as needed. She has an echo that has been ordered. We will also get Ophthalmology to evaluate the patient now because of the yeast that is in her blood. Moreno Lazo MD
--- NOTE | 2017-11-15 21:41 | PN ---
DATE: SUBJECTIVE: The patient is in bed, in no acute distress. Patient was seen early this morning. She still has a fever. PHYSICAL EXAMINATION: VITAL SIGNS: Temperature is 103.2, blood pressure is 189/80, respiratory rate of 20, heart rate of 107. HEENT: Unremarkable. NECK: Supple. LUNGS: Have decreased breath sounds. HEART: Normal S1 and S2. ABDOMEN: Soft. LABORATORY DATA: Reveals a white count of 9.9, hemoglobin of 10. Chemistries reveal a BUN of 18, creatinine of 0.7. Urinalysis is noted. Serology is noted. Blood cultures are reported to be yeast. Initial urine culture is E. coli. Repeat blood cultures will be ordered. ASSESSMENT AND PLAN: This is an 82-year-old female seen early this morning in room 360, bed 1, with sepsis, with a new onset of right-sided healthcare-associated pneumonia on top of Escherichia coli urinary tract infection, status post stent removal and new stent insertion. Patient now has fungemia with positive blood cultures for yeast, on vancomycin, meropenem and Mycamine. Patient had a CAT of the abdomen and pelvis yesterday, which showed bilateral nonobstructive calculi, non 5 mm persistent left hydronephrosis, hydroureter unchanged from prior study. We will check urine cultures and repeat blood cultures, and continue on vancomycin, meropenem and Mycamine. Review of medications reveals the patient's vancomycin is 11 in the morning and 11 at night. We will order vancomycin trough level for 10 a.m. tomorrow and I will before the 11 dose . We will follow with you. Josh Omer MD
[2017-11-16] MEDS: Sodium Chloride 0.9% 1,000 ML IV SCH (04:59)
[2017-11-16] MEDS: Meropenem IV 1 gm in NS 50 ML IVPB SCH ×3 (05:00→21:12)
[2017-11-16] MEDS: Budesonide 0.5 mg/2 ml Inhal Susp UD IH SCH ×2 (07:42→21:35)
[2017-11-16] MEDS: Levalbuterol 1.25 MG/3 ML Inhal Soln UD IH SCH ×4 (07:42→21:35)
--- NOTE | 2017-11-16 08:47 | OP ---
PROCEDURE DATE: 11/13/2017 PREOPERATIVE DIAGNOSES: Retained left ureteral stent, left ureteral calculus, left hydronephrosis. POSTOPERATIVE DIAGNOSES: Retained left ureteral stent, left ureteral calculus, left hydronephrosis. PROCEDURES: Cystoscopy, removal of left ureteral stent, left retrograde pyelogram, ureteroscopy, laser lithotripsy, basket extraction of left ureteral stone, and placement of a left ureteral stent. ATTENDING SURGEON: Vipul Rivero MD. ANESTHESIA: General. SPECIMENS: Ureteral calculus was sent to pathology. DRAINS: A 6 x 26 left ureteral stent. COMPLICATIONS: None. OPERATIVE FINDINGS: After informed consent was obtained, the patient was taken to the operating room, placed on the operating table, and anesthesia was administered. A 21-Austrian cystoscope was passed into the patient's bladder and a full survey inspection was performed. There was a stent noted exiting from the left ureteral orifice. The stent was moderately encrusted on its distal limb. There were no bladder tumors or other foreign bodies noted. At this point, a grasping forceps was passed. The encrustations were able to be removed using the grasping forceps from the end of the stent. The end of the stent was then grasped and removed through the urethral meatus. On fluoroscopy, the upper limb was noted to uncoil. The stent was then removed during fluoroscopy in its entirety without difficulty. There was a slight hold up in the distal ureter. At this point, the stent was examined, it was intact. There were no major encrustations noted on the upper limb. At this point, an open-ended ureteral catheter was passed through the cystoscope and advanced into the left ureteral orifice. A left retrograde pyelogram was then performed. There was noted to be a large filling defect in the distal ureter. There was a large calcification previously noted in this area. There was moderate hydronephrosis noted. At this point, a sensor wire was obtained and it was passed through the open-ended ureteral catheter and advanced up the ureter under fluoroscopic guidance until it coiled in the upper collecting system. The bladder was then drained. The cystoscope was removed, leaving the wire in place. A ureteroscope was then obtained and it was passed under direct vision into the bladder. It was able to be easily guided into the orifice and advanced proximally up to the ureter. About 1 cm above the ureterovesical junction, a large yellow to black colored stone was encountered. There was moderate edema of the ureter surrounding the stone. At this point, a holmium laser fiber was obtained. It was passed through the ureteroscope and under direct vision, fragmentation of the stone was begun. The stone was able to be fragmented into small pieces. The ureteroscope was then able to be advanced, past the stone without difficulty. The ureter was moderately dilated and the ureteroscope was able to easily be passed up the ureter into the area of the renal pelvis. The renal pelvis and kidney itself were able to be inspected. There were no other stones. There were no tumors or other abnormalities noted. At this point, the ureteroscope was withdrawn under direct vision. In the distal ureter, there was some fragments of the ureteral calculus. The laser was removed and a stone basket was passed. Three passes were made and fragments of the stone were removed. All the fragments were smaller than 1 mm. Fragments were sent to pathology as specimen. On the final pass, there were no remaining fragments noted and the procedure was then completed. The cystoscope was re-passed. A 6 x 26 stent was then passed through the cystoscope over the guidewire into the left ureter. The stent was advanced proximally under direct and fluoroscopic guidance until it was in at the appropriate position. When the stent was in proper position, guidewire was removed. A coil was seen in the kidney on fluoroscopy. A coil was seen in the bladder on cystoscopy. At this point, the procedure was completed. The patient tolerated the procedure well. She was returned to the supine position and taken to the recovery room awake, in stable condition. Vipul Rivero MD
[2017-11-16] MEDS: Micafungin 100 MG in Sodium Chloride 0.9% 100 ML IV SCH (09:15)
--- NOTE | 2017-11-16 09:15 | CON ---
DATE: 11/16/2017 PULMONARY CONSULTATION REASON FOR CONSULTATION: Wheezing. REFERRING PHYSICIAN: Dr. Moreno Lazo. History is obtained via extensive discussion with the night nurse. I have also discussed the case with the patient at length, and reviewed the chart at length. The patient is a chronically ill 82-year-old female, primarily bed-bound, with past medical history significant for congestive heart failure, coronary artery disease, status post multiple cardiac stents, left ureteral stent, cardiac arrhythmias, pneumonia in the past, who presented to [facility] - originally on 11/10/2017 - after falling at home. The patient stated that she was trying to get to the commode, and suddenly fell on the floor. She was then transported to [facility] for additional evaluation. In the emergency room, the patient did complain of burning and pain with urination. Subsequent evaluation revealed a urinary tract infection. The patient was thus admitted for additional evaluation. Again, I did discuss the case with the night nurse at length. There is no history of shortness of breath. The patient does state to a minimal cough at times with no sputum production. There is no history of chest pain, coughing up of blood, or chest pain - made worse with deep respirations. The patient did have a fever yesterday morning. The temperatures have been decreasing over the past shift. No history of chills or infectious exposure. No history of night sweats, weight loss or appetite change prior to the above events. No history of calf pains. No history of syncope or diaphoresis. No history of recent travel. REVIEW OF SYSTEMS: No history of nausea, vomiting or diarrhea. No new neurologic complaints. Rest of the review of systems is negative. ALLERGIES: NO KNOWN ALLERGIES. SOCIAL HISTORY: Positive for tobacco and negative for alcohol. FAMILY HISTORY: No inheritable diseases. HOME MEDICATIONS: Include Lovenox, Colace, Lipitor, Tylenol, Percocet, Norvasc, Protonix, Cozaar, Neurontin. PHYSICAL EXAMINATION: GENERAL: Patient appears comfortable this morning. She is not short of breath at rest. VITAL SIGNS: Last temperature recorded is 100.5. Pulse is 80, respirations 18, blood pressure 189/82. Oxygen saturation on nasal cannula is 96%. HEENT: Normocephalic, atraumatic. No JVD. CARDIOVASCULAR: Systolic ejection murmur at the lower left sternal border. No S3 gallop. LUNGS: Decreased breath sounds at the bases. Mild bilateral rhonchi. No wheezing. EXTREMITIES: Positive for edema. No cyanosis, no clubbing. Calves are nontender to palpation. GASTROINTESTINAL: Abdomen is soft, nontender and nondistended. Bowel sounds are positive. SKIN: No acute rash. NEUROLOGIC: Exam limited at the present time. PERTINENT LABORATORY DATA : Chest x-ray was last done on 11/13/2017, and reviewed. There is a mild hazy patchy infiltrate noted in the right upper lobe. CBC: White count 13.2, hemoglobin 11.7, hematocrit 35.5, platelets of 139,000. INR 1.82. Complete metabolic profile: Creatinine 0.5, AST 142, ALT 66, alkaline phosphatase 171. Rest of the metabolic profiles within normal limits. Procalcitonin 27.23. IMPRESSION: 1. Urosepsis. 2. Right upper lobe pneumonia. 3. Mild bronchospasm. 4. Coronary artery disease. 5. Atrial fibrillation. 6. Mild anemia. PLAN: The patient presents to [facility] - originally on 11/10/2017 - after falling at home. Again, I did discuss the case with the night nurse at length. Apparently, the patient had been progressively weak over the previous few days. She also complained of pain with her urination. As above, in the emergency room, the patient was diagnosed with urinary tract infection. She was thus admitted for additional evaluation. I did question the patient and nurse at length. Other than a minimal occasional cough, there are no pulmonary symptoms reported. I did review the chest x-ray as above. There is a hazy infiltrate noted in the right upper lobe. I will check a repeat film tomorrow - for comparison. On physical exam, there is only mild bronchospasm noted. I will change the patient to scheduled Xopenex treatments (given the atrial fibrillation) and add inhaled Pulmicort. There is no significant alveolar-arterial gradient. Oxygen saturation on nasal cannula is 96%. I would continue with the antibiotic coverage as per Infectious Disease. Input by Dr. Omer is noted. Echocardiogram is also ordered. The clinical status/future prognosis for this patient does remain guarded. I will discuss the above with Dr. Lazo this morning. Thank you very much for this pulmonary consultation. Francisco J Bowden MD [facility] # [id number] [place]
[2017-11-16] MEDS: Enoxaparin 80 mg Syringe SC SCH ×2 (09:20→21:12)
[2017-11-16] MEDS: Vancomycin 1gm in NS 250ml 1 GM/250 ML BAG IVPB SCH ×2 (11:21→22:22)
--- NOTE | 2017-11-16 13:35 | PN ---
SUBJECTIVE: The patient has no complaints of any chest pain. She states that her fever has improved. She has no nausea, no vomiting, and no headaches. PHYSICAL EXAMINATION VITAL SIGNS: Temperature is 98.2, pulse is 79, blood pressure is 157/94, and respirations 20. GENERAL: The patient is lying in bed, flat, comfortable. HEENT: No oral lesion. Anicteric sclerae. Moist mucosa. NECK: No JVD, adenopathy, or thyromegaly. CARDIOVASCULAR: S1 and S2, regular. No murmurs, rubs, or gallops. LUNGS: Clear to auscultation bilaterally. No wheeze, rales, or rhonchi. ABDOMEN: Bowel sounds are positive. Soft, nontender and nondistended. EXTREMITIES: No cyanosis, clubbing or edema. ASSESSMENT 1. Fungemia. 2. Sepsis. 3. Fall. 4. Left ureteral stent replacement. 5. Urinary tract infection secondary to Escherichia coli. 6. Hypertension. 7. Atrial fibrillation, on Coumadin. 8. Left-sided nephrolithiasis. 9. Pulmonary hypertension. 10. Dyslipidemia. PLAN: The patient is currently comfortable. She has been started on Mycamine for her fungemia. She has a CAT scan that shows calculi. She also has a left-sided hydroureter and hydronephrosis. The patient is on aspirin daily and Colace. The patient is on Lipitor for dyslipidemia. She is on meropenem for antibiotics. She is on IV fluids - I will discontinue the patient's IV fluids. She is eating and drinking. The patient will be restarted on her Coumadin. She will need an echo, which is pending and she is waiting for operational meteorologist who will evaluate the patient. Moreno Lazo MD
--- NOTE | 2017-11-16 14:17 | PQF PNEUMO ---
This form is a permanent part of the medical record Clarification of your documentation is requested to better reflect the severity of illness and intensity of treatment of your patient. Indicators present 4/2 DX RUL pneumonia on your consult. Acute infiltrate not seen on prior study. Swallow screen suggests that pt had episode of vomiting & possibly experienced episode of ramona aspiration. Do you feel that this is possible Aspiration Pneumonia x[] Documented diagnosis of pneumonia [x] X-ray findings: RUL infiltrate [] Positive Sputum cultures [x] Cough w/ fever [] Abnormal lungs sounds [] Poor gag reflex [x] Speech consults/swallow evaluation [] Vent dependence [] Other: [] Location in the medical record that reflects the above clinical findings: [x] Pul consult Treatment Provided: [x] Aspiration precautions PHYSICIAN'S RESPONSE Based on your medical judgment of the clinical indicators outlined above, are you treating this patient for a known or suspected: [x] Aspiration pneumonia [] Community acquired pneumonia [] Ventilator associated pneumonia [] Viral pneumonia [] Bacterial pneumonia Please specify organism: [] [x] Other, please indicate [] If Unable to Determine, please check the box, sign and date. Present On Admission (POA) Indicator: [] Present at the time of admission [x] Not present at the time of admission [] Clinically Undetermined In responding to this query, please exercise your independent professional judgment. The fact that a question is asked does not imply that any particular answer is desired or expected. Thank you for your clarification on this documentation. If you have any questions please call:[ ][phone] * Thank you, [ ] Muna Givens RN CDS dietetic technician [place]
--- NOTE | 2017-11-16 16:58 | CP.PCM.PN ---
Subjective - Date & Time of Evaluation Date of Evaluation: 11/16/17 Time of Evaluation: 08:45 - Subjective Subjective: Still having chills, fevers but no nausea, improved cough, no diarrhea. No abdominal pain. Objective - Vital Signs/Intake and Output Vital Signs (last 24 hours): Temp Pulse Resp BP Pulse Ox 98.2 F 79 20 157/94 H 100 11/16/17 08:23 11/16/17 09:13 11/16/17 08:23 11/16/17 09:16 11/16/17 08:23 Intake and Output: 11/16/17 11/16/17 06:59 18:59 Intake Total 2040 Output Total 0 Balance 2040 - Medications Medications: Current Medications Acetaminophen (Tylenol 325mg Tab) 650 mg PO Q4H PRN PRN Reason: Fever >100.4 F Last Admin: 11/15/17 18:22 Dose: 650 mg Amlodipine Besylate (Norvasc) 10 mg PO DAILY [facility] Last Admin: 11/16/17 09:16 Dose: 10 mg Aspirin (Aspirin Chewable) 81 mg PO DAILY [facility] Last Admin: 11/16/17 09:13 Dose: 81 mg Atorvastatin Calcium (Lipitor) 10 mg PO DIN [facility] Last Admin: 11/15/17 18:20 Dose: 10 mg Budesonide (Pulmicort Respules) 0.5 mg IH [id number] [facility] Last Admin: 11/16/17 07:42 Dose: 0.5 mg Docusate Sodium (Colace) 100 mg PO BID [facility] Last Admin: 11/16/17 09:13 Dose: 100 mg Enoxaparin Sodium (Lovenox) 80 mg SC Q12H JAMES PRN Reason: Protocol Last Admin: 11/16/17 09:20 Dose: 80 mg Gabapentin (Neurontin) 300 mg PO TID JAMES PRN Reason: Protocol Last Admin: 11/16/17 14:10 Dose: 300 mg Vancomycin HCl (Vancomycin 1gm) 1 gm in 250 mls @ 167 mls/hr IVPB Q12H JAMES PRN Reason: Protocol Last Admin: 11/16/17 11:21 Dose: 167 mls/hr Meropenem (Merrem Iv 1 Gm Premix) 50 mls @ 100 mls/hr IVPB Q8 JAMES PRN Reason: Protocol Last Admin: 11/16/17 14:11 Dose: 100 mls/hr Micafungin Sodium 100 mg/ (Sodium Chloride) 100 mls @ 100 mls/hr IV DAILY [facility] PRN Reason: Protocol Stop: 11/29/17 10:01 Last Admin: 11/16/17 09:15 Dose: 100 mls/hr Levalbuterol HCl (Xopenex) 1.25 mg IH [id number] [facility] Last Admin: 11/16/17 14:35 Dose: 1.25 mg Losartan Potassium (Cozaar) 12.5 mg PO DAILY [facility] Last Admin: 11/16/17 09:13 Dose: 12.5 mg Ondansetron HCl (Zofran Inj) 4 mg IVP ONCE PRN PRN Reason: Nausea/Vomiting Pantoprazole Sodium (Protonix Ec Tab) 40 mg PO DAILY [facility] Last Admin: 11/12/17 09:24 Dose: 40 mg Warfarin Sodium (Coumadin) 5 mg PO 1800 [facility] PRN Reason: Protocol - Labs Labs: 11/15/17 18:00 11/15/17 06:25 PT 21.2 SECONDS (9.4-12.5) H 11/13/17 05:30 INR 1.82 (0.93-1.08) H 11/13/17 05:30 APTT 36.1 Seconds (25.1-36.5) 11/13/17 05:30 - Constitutional Appears: Chronically Ill - Head Exam Head Exam: NORMAL INSPECTION - ENT Exam ENT Exam: Mucous Membranes Moist - Neck Exam Neck Exam: absent: Meningismus - Respiratory Exam Respiratory Exam: Decreased Breath Sounds - Cardiovascular Exam Cardiovascular Exam: +S1, +S2 - GI/Abdominal Exam GI & Abdominal Exam: Soft. absent: Tenderness Assessment and Plan - Assessment and Plan (Free Text) Plan: Assessment sepsis due to new onset right sided HCAP on top of E. coli UTI and fungemia, source unclear history of UTI with Klebsiella and Strep anginosus left ankle fracture after a fall history of sepsis due to right lower lobe healthcare-associated pneumonia with possible gram positive cocci and/or gram negative bacilli history of E. coli bacteremia associated with UTI and left nephrolithiasis S/P left ureteral stent placement history of acute transient ischemic attack with transient left sided weakness history of urinary tract infection with E. coli history of herpes zoster on the left side of the neck and left ear and post- herpetic neuralgia CAD S/P PCI HTN dyslipidemia Plan continue IV Vancomycin and Merrem day 5 to complete up to 7 days of therapy; continue Mycamine and follow up repeat blood cx; reviewed CXR which shows right upper lobe infiltrate will continue to monitor fever curve
--- NOTE | 2017-11-16 18:39 | CARD ---
APPROVED REPORT EXAM: Two-dimensional and M-mode echocardiogram with Doppler and color Doppler. INDICATION Infection:Rule out subacute bacterial endocarditis 2D DIMENSIONS Left Atrium (2D)5.0 (1.6-4.0cm)IVSd0.8 (0.7-1.1cm) LVDd4.7 (3.9-5.9cm)PWd1.0 (0.7-1.1cm) LVDs2.9 (2.5-4.0cm)FS (%) 37.9 % LVEF (%)68.1 (>50%) M-Mode DIMENSIONS Aortic Root2.10 (2.2-3.7cm)Aortic Cusp Exc.1.50 (1.5-2.0cm) Aortic Valve AoV Peak Jglutscr505.0cm/Kieran Peak GR.10mmHg Mitral Valve E/A ratio0.0 TDI E/Lateral E'0.0E/Medial E'0.0 Tricuspid Valve TR Peak [id number] Peak Gr.62mmHg [id number] LEFT VENTRICLE The left ventricle is normal size. There is normal left ventricular wall thickness. Left ventricle systolic function is normal. There is a flattened septum RIGHT VENTRICLE The right ventricle is mildly dilated. There is normal right ventricular wall thickness. The right ventricular systolic function is normal. ATRIA The left atrium is severely dilated. The right atrium is moderately dilated. AORTIC VALVE The aortic valve is thickened but opens well. No aortic regurgitation is present. There is no aortic valvular stenosis. MITRAL VALVE The mitral valve is mildly thickened. There is no mitral valve regurgitation noted. There is no mitral valve stenosis. TRICUSPID VALVE There is severe tricuspid regurgitation. There is severe pulmonary hypertension. GREAT VESSELS The aortic root is normal in size. The IVC is normal in size and collapses >50% with inspiration. <Conclusion> The left ventricle is normal size. There is normal left ventricular wall thickness. Left ventricle systolic function is normal. There is a flattened septum There is severe tricuspid regurgitation. There is severe pulmonary hypertension. No vegitation seen
[2017-11-17] MEDS: Levalbuterol 1.25 MG/3 ML Inhal Soln UD IH SCH ×4 (01:57→20:03)
[2017-11-17] MEDS: Meropenem IV 1 gm in NS 50 ML IVPB SCH ×3 (05:46→21:06)
[2017-11-17 07:02] LABS: INR 1.2 (0.93-1.08); PROTHROMBIN TIME 13.9 SECONDS (9.4-12.5)
[2017-11-17 08:23] VITALS: RESP 20
[2017-11-17] MEDS: Budesonide 0.5 mg/2 ml Inhal Susp UD IH SCH ×2 (08:24→20:03)
[2017-11-17 08:31] LABS: HEMOGLOBIN 9.9 g/dL (12.0-16.0); MEAN CELL VOLUME 90.6 fl (80.0-105.0); MEAN CORPUSCULAR HEMOGLOBIN 30.1 pg (25.0-35.0); MEAN CORPUSCULAR HGB CONC 33.2 g/dl (31.0-37.0); RBC 3.29 10^6/uL (3.5-6.1); RED CELL DISTRIBUTION WIDTH 17.3 % (11.5-14.5); WHITE BLOOD COUNT 7.8 10^3/ul (4.5-11.0)
--- NOTE | 2017-11-17 08:36 | PN ---
POSTOPERATIVE PROGRESS NOTE DATE OF SERVICE: 11/16/2017 SUBJECTIVE: The patient is seen in her room. She is awake, comfortable. Family is present. She has no current fever but has had on and off fever for past few days. OBJECTIVE: VITAL SIGNS: Blood pressure 157/94, respirations 20, pulse of 80. ABDOMEN: Soft, nontender, nondistended. There is no hepatosplenomegaly. There is no costovertebral angle tenderness. LABORATORY DATA: WBC count has been coming down now with another mild rise at 13.2. GFR remains greater than 60. Blood cultures remain no growth after 4 days. Gram stain of blood showed yeast and the patient has been started on appropriate antibiotics. The patient accidentally pulled her stent out yesterday. She was sent for a repeat CT scan that showed bilateral non-obstructing calculi, none larger than 5 mm. There is persistent left hydronephrosis. Hydroureter was unchanged compared to prior study. IMPRESSION AND PLAN: The patient appears to be improving on intravenous antibiotics and treatment for yeast in her blood. There is report of a new onset of pneumonia. There appears to be an acute upper lobe infiltrate in the right upper lobe. Urologically, the patient pulled out the stent accidentally; however, her ureter is clear. She had a ureteroscopy and the stones were removed. I was able to pass the scope easily up the length of her entire ureter into the kidney. I do not think she needs a stent at this point; postoperative infection, although she was on appropriate antibiotics, unfortunately because her stent was likely severely colonized as it had been in for over 1 year. At present, the patient appears stable and I would continue her present treatment. I appreciate Infectious Disease and Medical input, and we will follow their recommendations regarding intravenous antibiotics. We would plan on repeating her cultures, treatment of the right upper lobe pneumonia. The patient will also require rehabilitation. Upon speaking to her daughter, she has essentially been bed bound and has not been receiving physical therapy which she is supposed to be receiving at home. I will continue to follow this patient closely with you. Vipul Rivero MD
--- NOTE | 2017-11-17 08:39 | PN ---
DATE: 11/17/2017 PULMONARY NOTE SUBJECTIVE: The patient appears comfortable this morning. She is not short of breath at rest. PHYSICAL EXAMINATION: VITAL SIGNS: (Last noted in the computer): Temperature is 98, pulse 94, respirations 19, blood pressure 152/81. Oxygen saturation on nasal cannula is 94%-100%. HEENT: Normocephalic, atraumatic. NECK: No JVD. CARDIOVASCULAR: Systolic ejection murmur at the lower left sternal border. No S3 gallop. LUNGS: Decreased breath sounds at the bases. Less rhonchi. No wheezing. EXTREMITIES: Positive for edema. No cyanosis, no clubbing. Calves are nontender to palpation. GI: Abdomen is soft, nontender and nondistended. Bowel sounds are positive. SKIN: No acute rash. NEUROLOGIC: Exam limited at the present time. IMPRESSION: 1. Urosepsis. 2. Right upper lobe pneumonia. 3. Mild bronchospasm. 4. Coronary artery disease. 5. Atrial fibrillation. 6. Mild anemia. PLAN: The patient appears comfortable this morning. She is not short of breath at rest. On physical exam, there is certainly less bronchospasm noted. In addition, there is no significant alveolar-arterial gradient. I will continue the current nebulizer treatments and inhaled steroids for now. The patient remains on antibiotic therapy-as per Infectious Disease. Input by Dr. Cameron is noted. The temperatures have now resolved. I have also ordered a repeat chest x-ray-later today-for comparison. I will check that when feasible. Clinical status of the patient is definitely improved. However, her overall status/prognosis remains guarded. The patient needs aggressive physical therapy input at this point in time. I will discuss the above with Dr. Lazo. Francisco J Bowden MD [facility]
[2017-11-17 08:58] LABS: ALB/GLOB RATIO 0.9 (1.1-1.8); ALBUMIN 3.1 g/dL (3.0-4.8); ALT/SGPT 111 U/L (7-56); AST/SGOT 121 U/L (14-36); BLOOD UREA NITROGEN 14 mg/dL (7-21); CALCIUM 9.7 mg/dL (8.4-10.5); GFR AFRICAN-AMERICAN > 60; GFR NON-AFRICAN AMERICAN > 60
--- NOTE | 2017-11-17 10:44 | RAD ---
HISTORY: follow up COMPARISON: 11/13/2017 TECHNIQUE: Chest PA and lateral FINDINGS: LUNGS: Minimal linear scarring is seen. There is no focal consolidation PLEURA: No significant pleural effusion identified. No pneumothorax apparent. CARDIOVASCULAR: Normal. OSSEOUS STRUCTURES: No significant abnormalities. VISUALIZED UPPER ABDOMEN: Normal. OTHER FINDINGS: None. IMPRESSION: No active disease.
[2017-11-17] MEDS: Micafungin 100 MG in Sodium Chloride 0.9% 100 ML IV SCH (11:09)
[2017-11-17] MEDS: Enoxaparin 80 mg Syringe SC SCH (11:19)
[2017-11-17] MEDS: Vancomycin 1gm in NS 250ml 1 GM/250 ML BAG IVPB SCH ×2 (11:20→22:44)
--- NOTE | 2017-11-17 12:17 | CP.PCM.PN ---
Subjective - Date & Time of Evaluation Date of Evaluation: 11/17/17 Time of Evaluation: 10:20 - Subjective Subjective: No fevers overnight, no nausea, no diarrhea, no SOB at rest, no fevers. Objective - Vital Signs/Intake and Output Vital Signs (last 24 hours): Temp Pulse Resp BP Pulse Ox 99.3 F 78 20 154/82 H 95 11/17/17 08:22 11/17/17 08:22 11/17/17 08:22 11/17/17 08:22 11/17/17 08:22 Intake and Output: 11/17/17 11/17/17 06:59 18:59 Intake Total 0 Balance 0 - Medications Medications: Current Medications Acetaminophen (Tylenol 325mg Tab) 650 mg PO Q4H PRN PRN Reason: Fever >100.4 F Last Admin: 11/15/17 18:22 Dose: 650 mg Amlodipine Besylate (Norvasc) 10 mg PO DAILY [facility] Last Admin: 11/16/17 09:16 Dose: 10 mg Aspirin (Aspirin Chewable) 81 mg PO DAILY [facility] Last Admin: 11/16/17 09:13 Dose: 81 mg Atorvastatin Calcium (Lipitor) 10 mg PO DIN [facility] Last Admin: 11/16/17 17:37 Dose: 10 mg Budesonide (Pulmicort Respules) 0.5 mg IH [id number] [facility] Last Admin: 11/17/17 08:24 Dose: 0.5 mg Docusate Sodium (Colace) 100 mg PO BID [facility] Last Admin: 11/16/17 17:36 Dose: 100 mg Enoxaparin Sodium (Lovenox) 80 mg SC Q12H JAMES PRN Reason: Protocol Last Admin: 11/16/17 21:12 Dose: 80 mg Gabapentin (Neurontin) 300 mg PO TID [facility] PRN Reason: Protocol Last Admin: 11/16/17 17:37 Dose: 300 mg Vancomycin HCl (Vancomycin 1gm) 1 gm in 250 mls @ 167 mls/hr IVPB Q12H JAMES PRN Reason: Protocol Last Admin: 11/16/17 22:22 Dose: 167 mls/hr Meropenem (Merrem Iv 1 Gm Premix) 50 mls @ 100 mls/hr IVPB Q8 JAMES PRN Reason: Protocol Last Admin: 11/17/17 05:46 Dose: 100 mls/hr Micafungin Sodium 100 mg/ (Sodium Chloride) 100 mls @ 100 mls/hr IV DAILY [facility] PRN Reason: Protocol Stop: 11/29/17 10:01 Last Admin: 11/16/17 09:15 Dose: 100 mls/hr Levalbuterol HCl (Xopenex) 1.25 mg IH [id number] [facility] Last Admin: 11/17/17 08:24 Dose: 1.25 mg Losartan Potassium (Cozaar) 12.5 mg PO DAILY [facility] Last Admin: 11/16/17 09:13 Dose: 12.5 mg Ondansetron HCl (Zofran Inj) 4 mg IVP ONCE PRN PRN Reason: Nausea/Vomiting Pantoprazole Sodium (Protonix Ec Tab) 40 mg PO DAILY [facility] Last Admin: 11/12/17 09:24 Dose: 40 mg Warfarin Sodium (Coumadin) 5 mg PO 1800 [facility] PRN Reason: Protocol Last Admin: 11/16/17 17:36 Dose: 5 mg - Labs Labs: 11/17/17 08:15 11/17/17 08:15 PT 13.9 SECONDS (9.4-12.5) H 11/17/17 06:19 INR 1.20 (0.93-1.08) H 11/17/17 06:19 APTT 36.1 Seconds (25.1-36.5) 11/13/17 05:30 - Constitutional Appears: Non-toxic, Chronically Ill - Head Exam Head Exam: NORMAL INSPECTION - ENT Exam ENT Exam: Mucous Membranes Moist - Neck Exam Neck Exam: absent: Meningismus - Respiratory Exam Respiratory Exam: Decreased Breath Sounds - Cardiovascular Exam Cardiovascular Exam: +S1, +S2 - GI/Abdominal Exam GI & Abdominal Exam: Soft. absent: Tenderness Assessment and Plan - Assessment and Plan (Free Text) Plan: Assessment sepsis due to new onset right sided HCAP on top of E. coli UTI and fungemia ( preliminary report is C. glabrata), source unclear (although suspicious for renal stent which was removed last week) history of UTI with Klebsiella and Strep anginosus left ankle fracture after a fall history of sepsis due to right lower lobe healthcare-associated pneumonia with possible gram positive cocci and/or gram negative bacilli history of E. coli bacteremia associated with UTI and left nephrolithiasis S/P left ureteral stent placement history of acute transient ischemic attack with transient left sided weakness history of urinary tract infection with E. coli history of herpes zoster on the left side of the neck and left ear and post- herpetic neuralgia CAD S/P PCI HTN dyslipidemia Plan continue IV Vancomycin and Merrem day 6 to complete up to 7 days of therapy; continue Mycamine and follow up repeat blood cx; reviewed CXR which shows right upper lobe infiltrate - would recommend up to 4 weeks of Mycamine therapy and would recommend Ophtho evaluation to rule out endophthalmitis will continue to monitor clinically
--- NOTE | 2017-11-17 21:10 | PN ---
DATE: 11/17/2017 SUBJECTIVE: The patient has no complaints of any chest pain. No shortness of breath or headache. PHYSICAL EXAMINATION VITAL SIGNS: Temperature is 99.3, pulse of 78, blood pressure 154/82, respiration is 20. GENERAL: The patient is lying in bed, flat, comfortable. HEENT: No oral lesion. Anicteric sclerae. Moist mucosa. NECK: No JVD, adenopathy, or thyromegaly. CARDIOVASCULAR: S1 and S2, regular. No murmurs, rubs, or gallops. LUNGS: Clear to auscultation bilaterally. No wheeze, rales, or rhonchi. ABDOMEN: Bowel sounds are positive, soft, nontender and nondistended. EXTREMITIES: No cyanosis, clubbing or edema. LABORATORY DATA: White count of 7.8, hemoglobin is 9.9. Creatinine is 0.5. Chest x-ray done shows no active disease. ASSESSMENT: 1. Fungemia. 2. Sepsis. 3. Fall. 4. Left ureteral stent replacement. 5. Urinary tract infection secondary to Escherichia coli. 6. Hypertension. 7. Atrial fibrillation, on Coumadin. 8. Left-sided nephrolithiasis. 9. Pulmonary hypertension. 10. Dyslipidemia. PLAN: The patient is currently comfortable. She is on IV vancomycin and meropenem. She is on day 6 out of 7. The patient is also on Mycamine for her fungemia. She will need 4 weeks of IV antibiotics. The patient is going for Ophthalmology to see her to rule out endophthalmitis. The patient is going to be seen by Dr. Chaparro from Ophthalmology tomorrow. She will most likely need a PICC line to be placed for her IV antifungal medication. The patient has difficulty walking. She has a left ankle fracture after a fall in the past. She is being followed by Dr. Cameron. I appreciated his input. I did speak to the patient's daughter to let her knows that the patient needs to be on IV antifungal medication for 4 weeks. The patient is on Coumadin. The last INR done this morning is 1.2. She is on 5 mg. She is on losartan, this will be continued. She is on Lipitor for dyslipidemia. She is on Neurontin for neuropathy. The patient is receiving Xopenex. She is on a heart-healthy diet. She is on Lovenox for anticoagulation. CONDITION: Stable. ACTIVITIES: Increase as tolerated. Moreno Lazo MD
[2017-11-18] MEDS: Levalbuterol 1.25 MG/3 ML Inhal Soln UD IH SCH ×4 (01:35→19:58)
[2017-11-18] MEDS: Meropenem IV 1 gm in NS 50 ML IVPB SCH ×2 (05:02→13:55)
[2017-11-18] MEDS: Budesonide 0.5 mg/2 ml Inhal Susp UD IH SCH ×2 (08:06→19:59)
--- NOTE | 2017-11-18 08:07 | PN ---
DATE: 11/18/2017 PULMONARY NOTE SUBJECTIVE: The patient appears comfortable this morning. She is not short of breath at rest. PHYSICAL EXAMINATION: VITAL SIGNS: (Last noted in the computer): Temperature is 99.5, pulse 80, respirations 18/20, blood pressure 144/70. Oxygen saturation on nasal cannula is 97%. HEENT: Normocephalic, atraumatic. NECK: No JVD. CARDIOVASCULAR: Systolic ejection murmur at the lower left sternal border. No S3 gallop. LUNGS: Decreased breath sounds at the bases. Much less rhonchi. No wheezing. EXTREMITIES: Positive for edema. No cyanosis, no clubbing. Calves are nontender to palpation. GI: Abdomen is soft, nontender, nondistended. Bowel sounds are positive. SKIN: No acute rash. NEUROLOGIC: Exam limited at the present time. PERTINENT LABORATORY DATA: Chest x-ray was repeated yesterday and reviewed. There is now resolution of the previously seen right upper lobe infiltrate. IMPRESSION: 1. Urosepsis. 2. Right upper lobe pneumonia-resolved. 3. Mild bronchospasm. 4. Coronary artery disease. 5. Atrial fibrillation. 6. Mild anemia. PLAN: The patient appears comfortable this morning. She is not short of breath at rest. She does state to feeling better overall. On physical exam, there is significantly less bronchospasm. In addition, the oxygen saturation on nasal cannula is now 97%. I will continue the current nebulizer treatments and inhaled steroids for now. I will also continue with the aspiration precautions. I did review the chest x-ray-done yesterday. There is now resolution of the previously seen right upper lobe infiltrate. The patient remains on antibiotic therapy-as per Infectious Disease. Low grade temperatures are noted. The leukocytosis has resolved. Repeat a.m. labs are pending. Clinical status of the patient is certainly improved-compared to her initial presentation. However, again, her future status/prognosis does remain guarded. I will discuss the above with Dr. Lazo. Francisco J Bowden MD [facility]
--- NOTE | 2017-11-18 08:38 | PN ---
DATE: 11/17/2017 SUBJECTIVE: The patient is seen in her room. She is awake and alert. She reports feeling well. Does complain of some cough. PHYSICAL EXAMINATION: ABDOMEN: Soft, nontender, nondistended. There is no hepatosplenomegaly or costovertebral angle tenderness. VITAL SIGNS: She is afebrile, temperature of 99.3; pulse of 78; BP 154/82; respirations 20. IMPRESSION AND PLAN The patient is recovering from ureteroscopy with laser lithotripsy. She did develop a pneumonia and blood cultures grew Manuela. The patient has been seen by ID, Pulmonary, and Medicine. She is responding well to treatments and antibiotics. The patient removed her own stent accidentally; however, there is no evidence of obstruction. Plan for now is to continue medical management. The patient should be continued to improve. On discussion with the patient's family, the patient is essentially bed-bound. I think this puts her at high risk for other complications such as pneumonias and other issues. I would recommend the patient to receive intensive physical therapy. She should be able to weight transfer and ambulate with a walker and this should be done prior to the patient going home. Whether this should be in a Transitional Care Unit or in an outpatient rehab, this will need to be addressed by the patient's protective services case worker. I will continue to follow the patient with you. Vipul Rivero MD
[2017-11-18] MEDS: Micafungin 100 MG in Sodium Chloride 0.9% 100 ML IV SCH (09:17)
[2017-11-18] MEDS: Enoxaparin 80 mg Syringe SC SCH (10:10)
[2017-11-18] MEDS: Vancomycin 1gm in NS 250ml 1 GM/250 ML BAG IVPB SCH (11:53)
--- NOTE | 2017-11-18 11:53 | PN ---
DATE: SUBJECTIVE: The patient has no complaints of any chest pain, no shortness of breath, no headaches. PHYSICAL EXAMINATION: VITAL SIGNS: Temperature is 99.5, pulse of 80, blood pressure 144/70, respirations 20. GENERAL: The patient is lying in bed, flat, comfortable. HEENT: No oral lesion. Anicteric sclerae. Moist mucosa. NECK: No JVD, adenopathy, or thyromegaly. CARDIOVASCULAR: S1 and S2, regular. No murmurs, rubs, or gallops. LUNGS: Clear to auscultation bilaterally. No wheeze, rales, or rhonchi. ABDOMEN: Bowel sounds are positive, soft, nontender and nondistended. EXTREMITIES: No cyanosis, clubbing or edema. LABS: White count of 7.8, hemoglobin of 9.9. Creatinine 0.5. ASSESSMENT: 1. Fungemia. 2. Sepsis. 3. Fall. 4. Left ureteral stent placement. 5. Urinary tract infection secondary to Escherichia coli. 6. Hypertension. 7. Atrial fibrillation on Coumadin. 8. Left-sided nephrolithiasis. 9. Pulmonary hypertension. 10. Dyslipidemia. 11. Transaminitis. PLAN: The patient is going to get 4 weeks of antibiotics. I did speak to the patient's daughter yesterday to give her an update. The patient was seen by Physical Therapy yesterday. They have plans to send her to Subacute Rehab. She is currently receiving Colace for constipation. She is on Coumadin for her anticoagulation. She is on Lovenox for anticoagulation as well as her Coumadin is therapeutic. The patient has been receiving Lipitor for dyslipidemia. She is on Micafungin for her fungal infection. She is on Norvasc for hypertension. She is going for Ophthalmology evaluation with Dr. Chaparro today. The patient is on Zofran. INR was subtherapeutic yesterday at 1.2. She had been given vitamin K. She taking longer to increase. She is on a heart-healthy diet. Her LFTs are also mildly elevated with a . She did have high procalcitonin level. Moreno Lazo MD
--- NOTE | 2017-11-18 12:35 | RAD ---
HISTORY: PICC insertion COMPARISON: 11/17/2017 FINDINGS: LUNGS: No active pulmonary disease. PLEURA: No significant pleural effusion identified, no pneumothorax apparent. CARDIOVASCULAR: Moderate cardiomegaly OSSEOUS STRUCTURES: No significant abnormalities. VISUALIZED UPPER ABDOMEN: Normal. OTHER FINDINGS: None. IMPRESSION: The PICC line is in satisfactory position at the junction of the SVC and right atrium
--- NOTE | 2017-11-18 14:14 | CP.PCM.PN ---
Subjective - Date & Time of Evaluation Date of Evaluation: 11/18/17 Time of Evaluation: 09:45 - Subjective Subjective: Comfortable in bed, no fevers, not in distress. Objective - Vital Signs/Intake and Output Vital Signs (last 24 hours): Temp Pulse Resp BP Pulse Ox 99.5 F 80 20 144/70 97 11/17/17 16:00 11/17/17 16:00 11/17/17 16:00 11/17/17 16:00 11/17/17 16:00 Intake and Output: 11/17/17 11/18/17 18:59 06:59 Intake Total 660 Output Total 0 Balance 660 - Medications Medications: Current Medications Acetaminophen (Tylenol 325mg Tab) 650 mg PO Q4H PRN PRN Reason: Fever >100.4 F Last Admin: 11/15/17 18:22 Dose: 650 mg Amlodipine Besylate (Norvasc) 10 mg PO DAILY [facility] Last Admin: 11/17/17 11:09 Dose: 10 mg Aspirin (Aspirin Chewable) 81 mg PO DAILY [facility] Last Admin: 11/17/17 11:08 Dose: 81 mg Atorvastatin Calcium (Lipitor) 10 mg PO DIN [facility] Last Admin: 11/17/17 18:12 Dose: 10 mg Budesonide (Pulmicort Respules) 0.5 mg IH [id number] [facility] Last Admin: 11/17/17 20:03 Dose: 0.5 mg Docusate Sodium (Colace) 100 mg PO BID [facility] Last Admin: 11/17/17 18:12 Dose: 100 mg Enoxaparin Sodium (Lovenox) 80 mg SC Q12H [facility] PRN Reason: Protocol Last Admin: 11/17/17 11:19 Dose: 80 mg Gabapentin (Neurontin) 300 mg PO TID [facility] PRN Reason: Protocol Last Admin: 11/17/17 18:13 Dose: 300 mg Vancomycin HCl (Vancomycin 1gm) 1 gm in 250 mls @ 167 mls/hr IVPB Q12H [facility] PRN Reason: Protocol Last Admin: 11/17/17 22:44 Dose: 167 mls/hr Meropenem (Merrem Iv 1 Gm Premix) 50 mls @ 100 mls/hr IVPB Q8 [facility] PRN Reason: Protocol Last Admin: 11/18/17 05:02 Dose: 100 mls/hr Micafungin Sodium 100 mg/ (Sodium Chloride) 100 mls @ 100 mls/hr IV DAILY [facility] PRN Reason: Protocol Stop: 11/29/17 10:01 Last Admin: 11/17/17 11:09 Dose: 100 mls/hr Levalbuterol HCl (Xopenex) 1.25 mg IH [id number] [facility] Last Admin: 11/18/17 01:35 Dose: Not Given Losartan Potassium (Cozaar) 12.5 mg PO DAILY [facility] Last Admin: 11/17/17 11:08 Dose: 12.5 mg Ondansetron HCl (Zofran Inj) 4 mg IVP ONCE PRN PRN Reason: Nausea/Vomiting Pantoprazole Sodium (Protonix Ec Tab) 40 mg PO DAILY [facility] Last Admin: 11/12/17 09:24 Dose: 40 mg Warfarin Sodium (Coumadin) 5 mg PO 1800 [facility] PRN Reason: Protocol Last Admin: 11/17/17 18:12 Dose: 5 mg - Labs Labs: 11/17/17 08:15 11/17/17 08:15 PT 13.9 SECONDS (9.4-12.5) H 11/17/17 06:19 INR 1.20 (0.93-1.08) H 11/17/17 06:19 APTT 36.1 Seconds (25.1-36.5) 11/13/17 05:30 - Constitutional Appears: Chronically Ill - Head Exam Head Exam: NORMAL INSPECTION - ENT Exam ENT Exam: Mucous Membranes Moist - Neck Exam Neck Exam: absent: Meningismus - Respiratory Exam Respiratory Exam: Decreased Breath Sounds - Cardiovascular Exam Cardiovascular Exam: +S1, +S2 - GI/Abdominal Exam GI & Abdominal Exam: Soft. absent: Tenderness Assessment and Plan - Assessment and Plan (Free Text) Plan: Assessment sepsis due to new onset right sided HCAP on top of E. coli UTI and fungemia ( preliminary report is C. glabrata), source unclear (although suspicious for renal stent which was removed last week) history of UTI with Klebsiella and Strep anginosus left ankle fracture after a fall history of sepsis due to right lower lobe healthcare-associated pneumonia with possible gram positive cocci and/or gram negative bacilli history of E. coli bacteremia associated with UTI and left nephrolithiasis S/P left ureteral stent placement history of acute transient ischemic attack with transient left sided weakness history of urinary tract infection with E. coli history of herpes zoster on the left side of the neck and left ear and post- herpetic neuralgia CAD S/P PCI HTN dyslipidemia Plan continue IV Vancomycin and Merrem day 7 to complete up to 7 days of therapy; continue Mycamine - repeat blood cx (Day 3 since first negative blood cx) - would recommend up to 4 weeks of Mycamine therapy and would recommend Ophtho evaluation to rule out endophthalmitis reviewed CXR which shows right upper lobe infiltrate will continue to monitor clinically discussed with Dr. Razo
[2017-11-18 16:35] VITALS: BP 166/87; PULSE 95; TEMP 98.2; O2SAT 96
--- NOTE | 2017-11-19 00:54 | CON ---
DATE: 11/18/2017 HISTORY OF PRESENT ILLNESS: Consultation request was due to positive yeast in blood, to rule out any issue with her eyes. The patient is an 82-year-old female with admission for an episode of syncope. PAST MEDICAL HISTORY: Negative for any ocular surgery or eye disease. She has no history of diabetes. She has had a history of shingles on her left leg. She reports history of 2 cardiovascular stents. Other than that she has no known allergies. The patient reports no changes in her vision. PHYSICAL EXAMINATION: Upon examination, her vision in the right eye is 21/100 with a near card and in the left eye it is 21/50. On exam, her corneas are noted to be clear. She has no injection in both eyes. Her eye pressures within normal limits. 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 Her posterior eye exam shows normal nerve and a flat retina in both eyes. There was not noted to be any vitreitis or any debris, that will be consistent with any kind of fungal infection in both her eyes. ASSESSMENT: 1. Cataracts. At this point, we would observe her as an outpatient. 2. I am ruling out any eye infection. There is no sign of any infection at this point. Upon discharge, the patient to make an appointment at the office within a couple of weeks to assess her cataracts. Otherwise, it there are any questions, please contact to [phone]. Aman Chaparro MD
== END 2017-11-18 20:18 | DRG 668 ==
LOC: ED 17:56 → ERH 21:50 → 3RNO 11-11 00:54
PROVIDERS: ADMIT Internal Medicine Nephrology; ATTEND Internal Medicine Nephrology
PROC: 0TP98DZ Removal of Intraluminal Device from Ureter, Via Natural or Artificial Opening Endoscopic (ICD-10-PCS; 2017-11-13)
PROC: 0T778DZ Dilation of Left Ureter with Intraluminal Device, Via Natural or Artificial Opening Endoscopic (ICD-10-PCS; 2017-11-13)
PROC: BT1F1ZZ Fluoroscopy of Left Kidney, Ureter and Bladder using Low Osmolar Contrast (ICD-10-PCS; 2017-11-13)
PROC: 3E03329 Introduction of Other Anti-infective into Peripheral Vein, Percutaneous Approach (ICD-10-PCS; 2017-11-13)
PROC: 0TC78ZZ Extirpation of Matter from Left Ureter, Via Natural or Artificial Opening Endoscopic (ICD-10-PCS; principal; 2017-11-13 09:00)
DX: T83.592A Infection and inflammatory reaction due to indwelling ureteral stent, initial encounter (principal); A41.50 Gram-negative sepsis, unspecified; J69.0 Pneumonitis due to inhalation of food and vomit; B49 Unspecified mycosis; N13.2 Hydronephrosis with renal and ureteral calculous obstruction; N39.0 Urinary tract infection, site not specified; B96.20 Unspecified Escherichia coli [E. coli] as the cause of diseases classified elsewhere; D64.9 Anemia, unspecified; E78.5 Hyperlipidemia, unspecified; H26.9 Unspecified cataract; I10 Essential (primary) hypertension; I25.10 Atherosclerotic heart disease of native coronary artery without angina pectoris; I27.20 Pulmonary hypertension, unspecified; I48.91 Unspecified atrial fibrillation; J98.01 Acute bronchospasm; K59.00 Constipation, unspecified; M19.172 Post-traumatic osteoarthritis, left ankle and foot; M81.0 Age-related osteoporosis without current pathological fracture; T45.511A Poisoning by anticoagulants, accidental (unintentional), initial encounter; W19.XXXA Unspecified fall, initial encounter; Y92.009 Unspecified place in unspecified non-institutional (private) residence as the place of occurrence of the external cause; Y95 Nosocomial condition; Z79.01 Long term (current) use of anticoagulants; Z86.19 Personal history of other infectious and parasitic diseases; Z86.73 Personal history of transient ischemic attack (TIA), and cerebral infarction without residual deficits; Z87.01 Personal history of pneumonia (recurrent); Z87.440 Personal history of urinary (tract) infections; Z87.442 Personal history of urinary calculi; Z95.5 Presence of coronary angioplasty implant and graft

== ENCOUNTER 2018-08-27 17:37 | Inpatient (IN) | payer MEDICARE ==
--- NOTE | 2018-08-27 17:54 | ED PDOC ---
Arrival/HPI - History of Present Illness Narrative History of Present Illness (Text): 08/27/18 18:09 83 y/o F with PMHx of Afib, HTN, HLD, CAD s/p stent presents to ED with complaints of chest pressure, shortness of breath that's been ongoing for the past few days. Pt reports felt this a few days ago, without radiation to arm or jaw without alleviation or aggravation by anything in particular. She reports she has been undergoing physical therapy regularly by home visiting nurses and has continued to take coumadin. As per family at bedside, patient is bedbound and does not walk or get up much. She denies fevers, chills, headache, dizziness, palpitations, n/v/c/d/dysuria. PMHx: Afib, HTN, HLD, CAD s/p stents All: Denies PSH: cystoscopy w/ stent. L ankle ORIF SH: Denies ever smoking. occasional ETOH FH: noncontributory Meds: coumadin. PMD: previously Dr. Donohue. Doesn't remember name, has home visits. Time/Duration: Prior to Arrival Symptom Onset: Gradual Symptom Course: Unchanged Quality: Pressure Severity Level: Moderate Activities at Onset: Rest <Aki Martinez - Last Filed: 08/27/18 20:26> <Pola Gonzalez DO - Last Filed: 08/27/18 20:35> - General Time Seen by Provider: 08/27/18 17:49 Past Medical History - Provider Review Nursing Documentation Reviewed: Yes - Past History Past History: No Previous - Infectious Disease Hx of Infectious Diseases: None - Cardiac Hx Pacemaker: No - Pulmonary Hx Respiratory Disorders: No - Neurological Hx Neurological Disorder: Yes Hx Dizziness: Yes - HEENT Hx HEENT Disorder: No - Renal Hx Renal Disorder: Yes Hx Kidney Stones: Yes - Endocrine/Metabolic Hx Diabetes Mellitus Type 1: No Hx Diabetes Mellitus Type 2: No Hx Hypothyroidism: No - Hematological/Oncological Hx Cancer: No - Integumentary Hx Dermatological Disorder: Yes Other/Comment: Shingles on left side of neck on 04/14/16. 12-15-16 LEFT HIP WITH IRREGULARLY SHAPED STAGE 2 PRESSURE ULCER .MEASURES 1.5 X 2.5 CM. RED AREA. MILD SEROUS DRAINAGE.01-20-17 HEALING .FLAT REDDENED AREA.DRY.3 X 4 CM . BILATERAL LE DARK TO LIGHT BROWNISH SKIN. DISCOLORATION.EDEMA +1.PITTING - Musculoskeletal/Rheumatological Hx Arthritis: Yes - Gastrointestinal Hx Gastrointestinal Disorders: No - Genitourinary/Gynecological Hx Genitourinary Disorders: Yes Hx Incontinence: Yes Hx Urinary Tract Infection: Yes - Psychiatric Hx Psychophysiologic Disorder: No Hx Emotional Abuse: No Hx Physical Abuse: No Hx Substance Use: No - Surgical History Hx Mastectomy: No - Anesthesia Hx Anesthesia Reactions: No Hx Malignant Hyperthermia: No - Suicidal Assessment Feels Threatened In Home Enviroment: No <Aki Martinez - Last Filed: 08/27/18 20:26> Family/Social History - Physician Review Nursing Documentation Reviewed: Yes Family/Social History: Unknown Family HX Smoking Status: Never Smoked Hx Alcohol Use: No Hx Substance Use: No Hx Substance Use Treatment: No <Aki Martinez - Last Filed: 08/27/18 20:26> Allergies/Home Meds <Aki Martinez - Last Filed: 08/27/18 20:26> <Pola Gonzalez DO - Last Filed: 08/27/18 20:35> Allergies/Adverse Reactions: Allergies No Known Allergies Allergy (Verified 11/10/17 18:22) Home Medications: Home Meds Medication Instructions Recorded Confirmed Acetaminophen [Tylenol 325mg tab] 325 mg PO Q6H PRN 06/05/17 11/10/17 Aspirin [Aspirin Chewable] 81 mg PO DAILY 06/05/17 11/10/17 Atorvastatin [Lipitor] 10 mg PO DIN 06/05/17 11/10/17 Docusate [Colace] 100 mg PO BID 06/05/17 11/10/17 Enoxaparin [Lovenox] 90 mg SQ Q12H 06/05/17 11/10/17 Gabapentin [Neurontin] 300 mg PO TID 06/05/17 11/10/17 Losartan [Cozaar] 12.5 mg PO DAILY 06/05/17 11/10/17 Pantoprazole Sodium [Protonix] 40 mg PO AMHS 06/05/17 11/10/17 Review of Systems - Review of Systems Constitutional: Normal Eyes: Normal ENT: Hearing Changes (chronic difficulty hearing) Respiratory: SOB. absent: Cough, Sputum Cardiovascular: Chest Pain, Edema. absent: Palpitations, Calf Pain Gastrointestinal: Normal Genitourinary Female: Normal Musculoskeletal: Normal Skin: Normal Neurological: Normal Endocrine: Normal Hemo/Lymphatic: Normal Psychiatric: Normal <Aki Martinez - Last Filed: 08/27/18 20:26> Physical Exam Vital Signs Reviewed: Yes Temperature: Afebrile Blood Pressure: Hypertensive Pulse: Regular Respiratory Rate: Normal Appearance: Positive for: Well-Appearing, Non-Toxic, Comfortable Pain Distress: None Mental Status: Positive for: Alert and Oriented X 3 - Systems Exam Head: Present: Atraumatic, Normocephalic Pupils: Present: PERRL Extroacular Muscles: Present: EOMI Conjunctiva: Present: Normal Mouth: Present: Moist Mucous Membranes Neck: Present: Normal Range of Motion Respiratory/Chest: Present: Clear to Auscultation, Good Air Exchange. No: Respiratory Distress, Accessory Muscle Use Cardiovascular: Present: Normal S1, S2, Irregular Rhythm. No: Murmurs Abdomen: No: Tenderness, Distention, Peritoneal Signs Back: Present: Normal Inspection Upper Extremity: Present: Normal Inspection. No: Cyanosis, Edema Lower Extremity: Present: Deformity (L ankle), Neurovascularly Intact. No: Edema, CALF TENDERNESS, Krystin's Sign Neurological: Present: GCS=15, CN II-XII Intact, Speech Normal Skin: Present: Warm, Dry, Normal Color. No: Rashes Psychiatric: Present: Alert, Oriented x 3, Normal Insight, Normal Concentration <Aki Martinez - Last Filed: 08/27/18 20:26> Vital Signs Temp Pulse Resp BP Pulse Ox 08/27/18 17:55 97.6 F 88 19 164/69 H 97 <Pola Gonzalez DO - Last Filed: 08/27/18 20:35> Medical Decision Making ED Course and Treatment: 08/27/18 18:18 Impression: 83 y/o F with PMHx of afib, HTN, HLD presents to ED with complaints of chest pressure and SOB Prior notes and results have been reviewed Differential diagnosis includes but is not limited to: Afib Plan: Labs EKG Chest xray U/A Reassess & dispo Progress Notes: 08/27/18 19:[address] Sultana. Will accept to his service. Requested aspirin. Pt reports she no longer sees Dr. Condo - EKG Interpretation EKG Interpretation (Text): 08/27/18 18:23 Atrial fibrillation w/ premature ventricular or aberrantly conducted complexes Right axis Septal infarct age undetermined ST/T wave abnormality, consider inferior ischemia or digitalis effect HR: 94 bpm QTc: 430ms <Aki Martinez - Last Filed: 08/27/18 20:26> ED Course and Treatment: 08/27/18 19:43 Patient is a 83 year old female presenting with chest discomfort and shortness of breath. In agreement with resident note, which includes further HPI details. Patient was seen and evaluated with resident, came up with plan and treatment together. - Lab Interpretations Lab Results: PT 35.4 SECONDS (9.4-12.5) H 08/27/18 18:24 INR 3.04 08/27/18 18:24 APTT 40.4 Seconds (25.1-36.5) H 08/27/18 18:24 Troponin I < 0.01 ng/mL 08/27/18 18:24 NT-Pro-B Natriuret Pep 1970 pg/mL (0-450) H 08/27/18 18:24 Total Bilirubin 2.0 mg/dL (0.2-1.3) H 08/27/18 18:24 AST 28 U/L (14-36) 08/27/18 18:24 ALT 41 U/L (7-56) 08/27/18 18:24 Alkaline Phosphatase 129 U/L (38-126) H D 08/27/18 18:24 Total Protein 8.4 g/dL (5.8-8.3) H 08/27/18 18:24 Albumin 4.7 g/dL (3.0-4.8) 08/27/18 18:24 Globulin 3.6 gm/dL 08/27/18 18:24 Albumin/Globulin Ratio 1.3 (1.1-1.8) 08/27/18 18:24 - RAD Interpretation Radiology Orders: 08/27/18 18:05 CHEST PORTABLE [RAD] Stat - Medication Orders Current Medication Orders: Discontinued Medications Aspirin (Aspirin) 325 mg PO STAT STA Stop: 08/27/18 19:29 <Pola Gonzalez DO - Last Filed: 08/27/18 20:35> - PA / MASTER FISHER / Resident Statement IVAN has reviewed & agrees with the documentation as recorded. IVAN has examined the patient and agrees with the treatment plan. <Aki Martinez - Last Filed: 08/27/18 20:26> - PA / MASTER FISHER / Resident Statement IVAN has reviewed & agrees with the documentation as recorded. IVAN has examined the patient and agrees with the treatment plan. - Scribe Statement The provider has reviewed the documentation as recorded by the [place]t[facility] Lock All medical record entries made by the Scribe were at my direction and personally dictated by me. I have reviewed the chart and agree that the record accurately reflects my personal performance of the history, physical exam, medical decision making, and the department course for this patient. I have also personally directed, reviewed, and agree with the discharge instructions and disposition. <Pola Gonzalez DO - Last Filed: 08/27/18 20:35> Disposition/Present on Arrival - Present on Arrival Any Indicators Present on Arrival: No History of DVT/PE: No History of Uncontrolled Diabetes: No Urinary Catheter: No History Surgical Site Infection Following: None - Disposition Have Diagnosis and Disposition been Completed?: Yes Disposition Time: 19:58 <Aki Martinez - Last Filed: 08/27/18 20:26> - Disposition Disposition Time: 19:15 <Pola Gonzalez DO - Last Filed: 08/27/18 20:35> - Disposition Diagnosis: ACS (acute coronary syndrome) Disposition: HOSPITALIZED Patient Problems: Current Active Problems Problem Status Onset ACS (acute coronary syndrome) Acute Condition: FAIR
[2018-08-27 17:57] VITALS: BMI 28.8
[2018-08-27 18:43] LABS: ALB/GLOB RATIO 1.3 (1.1-1.8); ALBUMIN 4.7 g/dL (3.0-4.8); ALT/SGPT 41 U/L (7-56); AST/SGOT 28 U/L (14-36); BLOOD UREA NITROGEN 22 mg/dL (7-21); CALCIUM 10.7 mg/dL (8.4-10.5); GFR NON-AFRICAN AMERICAN > 60
[2018-08-27 18:55] LABS: B-TYPE NATRIURETIC PEPTIDE 1970 pg/mL (0-450); TROPONIN I < 0.01 ng/mL
--- NOTE | 2018-08-27 18:58 | RAD ---
Date of service: 08/27/2018 HISTORY: chest pain COMPARISON: 11/18/2017 FINDINGS: LUNGS: No discrete infiltrates or active pulmonary disease. PLEURA: No significant pleural effusion identified, no pneumothorax apparent. CARDIOVASCULAR: Cardiomegaly. No evidence of acute, significant cardiovascular disease. Atherosclerotic calcifications identified primarily aortic arch. OSSEOUS STRUCTURES: No significant abnormalities. VISUALIZED UPPER ABDOMEN: Normal. OTHER FINDINGS: None. IMPRESSION: No active disease. No significant interval change compared to the prior examination(s).
[2018-08-27 18:59] LABS: INR 3.04; PARTIAL THROMBOPLASTIN TIME 40.4 Seconds (25.1-36.5); PROTHROMBIN TIME 35.4 SECONDS (9.4-12.5)
[2018-08-27 19:03] LABS: BASO # 0.02 K/mm3 (0.0-2.0); BASO % 0.2 % (0.0-3.0); EOS % 0.2 % (1.5-5.0); GRAN # 9.89 (1.4-6.5); GRAN % 79.1 % (50.0-68.0); HEMOGLOBIN 11.8 g/dL (12.0-16.0); LYMPH # 1.1 (1.2-3.4); MEAN CELL VOLUME 92.8 fl (80.0-105.0); MEAN CORPUSCULAR HEMOGLOBIN 30.2 pg (25.0-35.0); MEAN CORPUSCULAR HGB CONC 32.5 g/dl (31.0-37.0); MEAN PLATELET VOLUME 10.8 fl (7.0-11.0); MONO # 1.4 (0.1-0.6); MONO % 11.5 % (1.0-6.0); RBC 3.91 10^6/uL (3.5-6.1); WHITE BLOOD COUNT 12.5 10^3/uL (4.5-11.0)
--- NOTE | 2018-08-27 19:41 | CARD ---
APPROVED REPORT Date of service: 08/27/2018 EKG Measurement Heart [id number] <Conclusion> Atrial fibrillation with premature ventricular or aberrantly conducted complexes Septal infarct, age undetermined ST & T wave abnormality, consider inferior ischemia or digitalis effect Abnormal ECG
--- NOTE | 2018-08-27 23:29 | CP.PCM.HP ---
History of Present Illness - History of Present Illness History of Present Illness: Gentry Merchant DO PGY1 - Internal Medicine Podiatrist - Medicine H&P CC: Chest pain 83YO Hard of Hearing Female PMH Afib, HTN, HLD, CAD s/p stent, Arthritis, presented to [facility] [place] on [place] w/ c/o chest pain. Patient reported chest pain began 1-2 days ago in the substernal area when she was ambulating about her house. She reported that pain was associated w/ some SOB and she did not get any rest night prior due to pain. She reported that severity of pain is no longer as intense as original onset, and that pain is worsened w/ activity, alleviated at rest. She denies any active chest pain at time of evaluation w/o any difficulty breathing. Patient did report some mild nausea and light headedness associated w/ symptoms. Patient denies any radiation into L arm or neck. Please note patient is bed bound w/ minimal movement/ activity. Upon ROS: Patient denies hematuria, dysuria, pain/ burning w/ urination, abd pain, n/v/d/c, dizziness, visual changes. Remainder 12 system ROS is otherwise negative. PMHx: Afib, HTN, HLD, CAD s/p stents All: Denies PSH: cystoscopy w/ stent. L ankle ORIF SH: Denies ever smoking. occasional ETOH FH: noncontributory Meds: coumadin. PMD: previously Dr. Donohue. Doesn't remember name, has home visits. Present on Admission - Present on Admission Any Indicators Present on Admission: Yes Decubitus Ulcer Present: Yes Past Patient History - Infectious Disease Hx of Infectious Diseases: None - Past Social History Smoking Status: Never Smoked - CARDIAC Hx Pacemaker: No - PULMONARY Hx Respiratory Disorders: No - NEUROLOGICAL Hx Neurological Disorder: Yes Hx Dizziness: Yes - HEENT Hx HEENT Problems: No - RENAL Hx Chronic Kidney Disease: Yes Hx Kidney Stones: Yes - ENDOCRINE/METABOLIC Hx Diabetes Mellitus Type 1: No Hx Diabetes Mellitus Type 2: No Hx Hypothyroidism: No - HEMATOLOGICAL/ONCOLOGICAL Hx Cancer: No - INTEGUMENTARY Hx Dermatological Problems: Yes Other/Comment: Shingles on left side of neck on 16. 5-1-17 LEFT HIP WITH IRREGULARLY SHAPED STAGE 2 PRESSURE ULCER .MEASURES 1.5 X 2.5 CM. RED AREA. MILD SEROUS DRAINAGE.6-6-17 HEALING .FLAT REDDENED AREA.DRY.3 X 4 CM . BILATERAL LE DARK TO LIGHT BROWNISH SKIN. DISCOLORATION.EDEMA +1.PITTING - MUSCULOSKELETAL/RHEUMATOLOGICAL Hx Arthritis: Yes - GASTROINTESTINAL Hx Gastrointestinal Disorders: No - GENITOURINARY/GYNECOLOGICAL Hx Genitourinary Disorders: Yes Hx Incontinence: Yes Hx Urinary Tract Infection: Yes - PSYCHIATRIC Hx Psychophysiologic Disorder: No Hx Emotional Abuse: No Hx Physical Abuse: No Hx Substance Use: No - SURGICAL HISTORY Hx Mastectomy: No - ANESTHESIA Hx Anesthesia Reactions: No Hx Malignant Hyperthermia: No Meds Allergies/Adverse Reactions: Allergies Allergy/AdvReac Type Severity Reaction Status Date / Time No Known Allergies Allergy Verified 11/10/17 18:22 Physical Exam - Constitutional Appears: Well, Non-toxic, No Acute Distress - Head Exam Head Exam: ATRAUMATIC, NORMOCEPHALIC - Eye Exam Eye Exam: EOMI, Normal appearance, PERRL. absent: Scleral icterus - ENT Exam ENT Exam: Mucous Membranes Moist - Respiratory Exam Respiratory Exam: NORMAL BREATHING PATTERN. absent: Clear to Auscultation Bilateral Additional comments: Mild Bibasilar crackle - Cardiovascular Exam Additional comments: Irregular x Irregular Mild systolic murmur along LSB - GI/Abdominal Exam GI & Abdominal Exam: Soft. absent: Tenderness - Extremities Exam Extremities exam: Positive for: pedal edema (Mild 1+ Pitting edema ), pedal pulses present (2+ BL PT/DP) - Neurological Exam Neurological exam: Alert, CN II-XII Intact - Psychiatric Exam Psychiatric exam: Normal Affect, Normal Mood - Skin Skin Exam: Dry, Intact, Normal Color, Warm Results - Vital Signs Recent Vital Signs: Last Vital Signs Temp 97.6 F 08/27/18 17:55 Pulse 88 08/27/18 17:55 Resp 19 08/27/18 17:55 BP 164/69 H 08/27/18 17:55 Pulse Ox 97 08/27/18 17:55 - Labs Result Diagrams: 08/27/18 18:24 08/27/18 18:24 Labs: Laboratory Results - last 24 hr 08/27/18 08/27/18 08/27/18 18:24 18:24 18:24 WBC 12.5 H RBC 3.91 Hgb 11.8 L Hct 36.3 MCV 92.8 MCH 30.2 MCHC 32.5 RDW 16.0 H Plt Count 198 MPV 10.8 Gran % 79.1 H Lymph % (Auto) 9.0 L [place] % (Auto) 11.5 H Eos % (Auto) 0.2 L Baso % (Auto) 0.2 Gran # 9.89 H Lymph # (Auto) 1.1 L [place] # (Auto) 1.4 H Eos # (Auto) 0.0 Baso # (Auto) 0.02 PT 35.4 H INR 3.04 APTT 40.4 H Sodium 141 Potassium 5.2 H Chloride 105 Carbon Dioxide 26 Anion Gap 16 BUN 22 H Creatinine 0.8 Est GFR ( Amer) > 60 Est GFR (Non-Af Amer) > 60 Random Glucose 142 H Calcium 10.7 H Magnesium 2.0 Total Bilirubin 2.0 H AST 28 ALT 41 Alkaline Phosphatase 129 H D Lactate Dehydrogenase 535 Total Creatine Kinase 83 Troponin I < 0.01 NT-Pro-B Natriuret Pep 1970 H Total Protein 8.4 H Albumin 4.7 Globulin 3.6 Albumin/Globulin Ratio 1.3 Assessment & Plan - Assessment and Plan (Free Text) Assessment: 83YO Hard of Hearing Female PMH Afib, HTN, HLD, CAD s/p stent, Arthritis, presented to [facility] [place] on 08/27 w/ c/o chest pain. PLAN: Chest Pain ACS R/O Last Echo 11/01 - EF wnl; Severe Pulm HTN noted Initial Troponin negative ; Initial EKG shows Afib rhythm w/ HR @ 96 BPM; no significant ST elevations appreciated Follow Serial Trop Follow AM EKG Lipid panel pending A1C pending Given ASA 325 in ED; Start ASA 81 QD Lipitor 80 given now; Will start Lipitor 40 DIN tomorrow Cardiology Consulted, Appreciate reccs Pulm HTN as per pre Bibasilar crackles on lung auscultation Start Lasix 20 IVP Q12 BNP Mildly elevated - 1969 CT Chest pending HX Afib INR -3; Rate controlled at this time; Home controlling Rx unknown Start Lopressor 25 BID Coumadin 5 as per previous documentation PT/PTT INR LE Edema Previous ORIF of L ankle; Repeat XR pending BL LE DUPLEX pending Lasix as above PT EVAL + Treat PPX Lovenox Protnix Obs on Tele Case was discussed w/ attending physician Dr. Rd MERCHANT DO PGY1 - INTERNAL MEDICINE BROWNELL OPERATOR - Date & Time Date: 08/28/18 Time: 01:57
[2018-08-27 23:32] LABS: PH,URINE 5.5 (4.7-8.0); URINE BILIRUBIN SMALL (NEGATIVE); URINE BLOOD MODERATE (NEGATIVE); URINE GLUCOSE (UA) NEGATIVE (NEGATIVE); URINE LEUKOCYTE ESTERASE SMALL Leu/uL (NEGATIVE); URINE PROTEIN 100 mg/dL (<30 mg/dL)
[2018-08-27 23:37] LABS: URINE APPEARANCE CLOUDY (CLEAR); URINE COLOR YELLOW (YELLOW)
[2018-08-28 00:18] LABS: URINE BACTERIA MANY /hpf
[2018-08-28] MEDS: Levalbuterol 0.63 MG/3 ML Inhal Soln UD IH PRN ×2 (04:16→08:20)
[2018-08-28] MEDS: Pantoprazole 40 mg EC Tab PO SCH (06:36)
[2018-08-28 06:50] LABS: BASO # 0.02 K/mm3 (0.0-2.0); BASO % 0.2 % (0.0-3.0); EOS # 0.1 (0.0-0.7); EOS % 0.5 % (1.5-5.0); GRAN # 8.12 (1.4-6.5); GRAN % 75.2 % (50.0-68.0); HEMOGLOBIN 11.8 g/dL (12.0-16.0); LYMPH # 1.4 (1.2-3.4); LYMPH % 12.5 % (22.0-35.0); MEAN CELL VOLUME 92.4 fl (80.0-105.0); MEAN CORPUSCULAR HEMOGLOBIN 29.7 pg (25.0-35.0); MEAN CORPUSCULAR HGB CONC 32.2 g/dl (31.0-37.0); MEAN PLATELET VOLUME 10.4 fl (7.0-11.0); MONO # 1.3 (0.1-0.6); MONO % 11.6 % (1.0-6.0); RBC 3.97 10^6/uL (3.5-6.1); RED CELL DISTRIBUTION WIDTH 15.8 % (11.5-14.5); WHITE BLOOD COUNT 10.8 10^3/uL (4.5-11.0)
[2018-08-28 06:57] LABS: INR 3.22; PARTIAL THROMBOPLASTIN TIME 39.9 Seconds (25.1-36.5); PROTHROMBIN TIME 37.9 SECONDS (9.4-12.5)
[2018-08-28 07:01] LABS: ALB/GLOB RATIO 1.2 (1.1-1.8); ALBUMIN 4.5 g/dL (3.0-4.8); ALT/SGPT 33 U/L (7-56); AST/SGOT 24 U/L (14-36); BLOOD UREA NITROGEN 20 mg/dL (7-21); CALCIUM 10.2 mg/dL (8.4-10.5); GFR NON-AFRICAN AMERICAN > 60; HDL CHOLESTEROL 57 mg/dL (29-60)
[2018-08-28 07:10] LABS: TROPONIN I < 0.01 ng/mL
[2018-08-28 07:12] LABS: LDL CHOLESTEROL 68 mg/dL (0-129)
[2018-08-28] MEDS: Budesonide 0.25 mg/2 ml Inhal Susp UD IH SCH ×2 (08:19→19:27)
[2018-08-28 08:26] LABS: FREE T4 1.59 ng/dL (0.78-2.19); T4 9.4 ug/dL (5.5-11.0)
[2018-08-28] MEDS ORDERED: Enoxaparin 40 mg Syringe SC SCH (10:00)
--- NOTE | 2018-08-28 10:05 | RAD ---
Date of service: 08/28/2018 PROCEDURE: Left Ankle Radiographs. HISTORY: LLE Deformity COMPARISON: None available. FINDINGS: BONES: Evidence of healed trimalleolar fracture. Ankle deformity appears to be related to this process. Calcifications within the intraosseous syndesmosis. JOINTS: Osteoarthritic/posttraumatic changes primarily talotibial and talofibular joint regions. SOFT TISSUES: Focal soft tissue swelling anteriorly and medially. OTHER FINDINGS: None. IMPRESSION: Soft tissue swelling without acute articular or osseous abnormality. Extensive posttraumatic changes distal tibia, fibula and talus.
[2018-08-28] MEDS: Cefepime 1gm in NS 100ml 1 GM/100 ML BAG IVPB SCH ×2 (10:22→22:40)
--- NOTE | 2018-08-28 13:05 | CT ---
Date of service: 08/28/2018 PROCEDURE: CT Chest without contrast HISTORY: Pulmonary hypertension. COMPARISON: None available. TECHNIQUE: Contiguous axial images were obtained through the chest without intravenous contrast enhancement. Sagittal and coronal reconstructions were performed. Radiation dose: Total exam DLP = 526.94 mGy-cm. This CT exam was performed using one or more of the following dose reduction techniques: Automated exposure control, adjustment of the mA and/or kV according to patient size, and/or use of iterative reconstruction technique. FINDINGS: LUNGS: Faint multifocal bilateral airspace disease. Findings are likely infectious/inflammatory rather than cardiogenic. Parabronchial thickening consistent with lower airway disease. No suspicious pulmonary nodules or masses. MEDIASTINUM: Unremarkable thoracic aorta. No aneurysm. Cardiomegaly. Multi chamber enlargement. No pericardial effusion. Dilated main pulmonary artery 3.6 cm consistent with pulmonary arterial hypertension. No lymphadenopathy. Mild, diffuse aortic atherosclerotic calcification. PLEURA: Trace right pleural effusion BONES: No fracture. No destructive lesion. Multilevel degenerate UPPER ABDOMEN: Grossly unremarkable. OTHER FINDINGS: None. IMPRESSION: CT manifestations of pulmonary arterial hypertension documented dilatation of main and more peripheral pulmonary arteries. Faint multifocal infiltrates likely infectious/inflammatory. Small right pleural effusion.
[2018-08-28] MEDS ORDERED: Ergocalciferol 50,000 Intl Units Cap PO SCH (15:15)
[2018-08-28] MEDS: Levalbuterol 0.63 MG/3 ML Inhal Soln UD IH SCH ×2 (16:58→19:28)
[2018-08-28] MEDS: Ciprofloxacin/Dexamethasone OTIC SUSP AD SCH (23:30)
[2018-08-29] MEDS ORDERED: Pantoprazole 40 mg EC Tab PO SCH (06:00)
[2018-08-29] MEDS: Cefepime 1gm in NS 100ml 1 GM/100 ML BAG IVPB SCH ×3 (06:55→21:20)
[2018-08-29] MEDS: Pantoprazole 40 mg EC Tab PO SCH (06:56)
[2018-08-29 07:39] LABS: BASO # 0.03 K/mm3 (0.0-2.0); BASO % 0.3 % (0.0-3.0); EOS # 0.1 (0.0-0.7); EOS % 0.6 % (1.5-5.0); GRAN # 7.4 (1.4-6.5); GRAN % 71.8 % (50.0-68.0); HEMOGLOBIN 11.7 g/dL (12.0-16.0); LYMPH # 1.3 (1.2-3.4); LYMPH % 12.5 % (22.0-35.0); MEAN CELL VOLUME 90.7 fl (80.0-105.0); MEAN CORPUSCULAR HEMOGLOBIN 29.5 pg (25.0-35.0); MEAN CORPUSCULAR HGB CONC 32.5 g/dl (31.0-37.0); MEAN PLATELET VOLUME 10.6 fl (7.0-11.0); MONO # 1.5 (0.1-0.6); MONO % 14.8 % (1.0-6.0); RBC 3.97 10^6/uL (3.5-6.1); RED CELL DISTRIBUTION WIDTH 15.3 % (11.5-14.5); WHITE BLOOD COUNT 10.3 10^3/uL (4.5-11.0)
[2018-08-29 07:48] LABS: INR 2.69; PARTIAL THROMBOPLASTIN TIME 37.1 Seconds (25.1-36.5); PROTHROMBIN TIME 31.6 SECONDS (9.4-12.5)
[2018-08-29 07:56] LABS: ALB/GLOB RATIO 1.1 (1.1-1.8); ALBUMIN 4.3 g/dL (3.0-4.8); ALT/SGPT 32 U/L (7-56); AST/SGOT 26 U/L (14-36); BILIRUBIN,DIRECT 0.6 mg/dL (0.0-0.4); BLOOD UREA NITROGEN 15 mg/dL (7-21); CALCIUM 10.1 mg/dL (8.4-10.5); GFR NON-AFRICAN AMERICAN > 60
[2018-08-29] MEDS: Budesonide 0.25 mg/2 ml Inhal Susp UD IH SCH ×2 (08:10→19:46)
[2018-08-29] MEDS: Levalbuterol 0.63 MG/3 ML Inhal Soln UD IH SCH ×4 (08:10→19:46)
[2018-08-29] MEDS ORDERED: Magnesium Sulfate 2 gm/50 ml 2 GM/50 ML BAG IVPB ONE (09:55)
[2018-08-29] MEDS: Ciprofloxacin/Dexamethasone OTIC SUSP AD SCH ×2 (10:26→18:45)
--- NOTE | 2018-08-29 13:34 | US ---
HISTORY: Leg pain and swelling. Evaluate for DVT PHYSICIAN(S): Teodoro Iyer MD. TECHNIQUE: Duplex sonography and color-flow Doppler with graded compression were used to evaluate the deep venous systems of both lower extremities. The exam is somewhat limited by edema FINDINGS: The visualized deep venous systems of both lower extremities are sonographically normal and compressible. Normal wave forms and augmentation are seen. There is no sonographic evidence for deep venous thrombosis in the visualized segments of both lower extremities. IMPRESSION: No sonographic evidence for deep venous thrombosis in the visualized segments of both lower extremities.
[2018-08-29] MEDS: Potassium Chloride 10 mEq ER Tab PO SCH (18:46)
--- NOTE | 2018-08-29 19:14 | PN ---
DATE: 08/29/2018 SUBJECTIVE: The patient is seen lying in the bed in room 262, bed 2. The patient's daughter, is at bedside. The patient is alert, awake, responsive, confused, disoriented, oriented only to person, disoriented to year, date, month, oriented to date of , unable to say complete address of her home address. According to the patient's family, the patient has been more confused and disoriented and agitated and uncooperative. Even at home, the patient was reported by the patient's daughter, the patient has been very uncooperative and has been mostly bedridden. OBJECTIVE: VITAL SIGNS: Telemetry shows atrial fibrillation, heart rate 80, 68, 63, T-max is 98.7, blood pressure 151/85,150/83, 170/86, and 160/67, respirations 19-20, and O2 sat is 95-98%. HEENT: Head' normocephalic and atraumatic. HEENT examination shows pink conjunctivae. Anicteric sclerae. No oropharyngeal lesion. NECK: No neck rigidity. CHEST: Kyphosis. LUNGS: Shows positive rhonchi and creps bilaterally. CARDIOVASCULAR: S1 and S2, irregular rhythm. Positive systolic murmur left sternal border, right second intercostal space, left second intercostal space. ABDOMEN: Soft. Positive bowel sounds. No palpable hepatosplenomegaly. GENITALIA: Female. RECTAL: Deferred. EXTREMITIES: Shows positive swelling of the lower extremity. Positive ANTONIO stockings. MUSCULOSKELETAL: Shows a body mass index of 29. Gait examination is not tested. NEUROLOGIC: The patient is alert, awake, responsive, oriented to person, disoriented to year, date, month, place, oriented to her date of , and street name. DIAGNOSTIC DATA: On 08/29/2018; WBC 10.3, hemoglobin and hematocrit 11.7 and 36, and platelet 200. Granulocytes 72% segs. PT 31.6 and INR 2.69. Sodium 138, potassium 3.3, chloride 99, CO2 of 29, anion gap 14, BUN 15, creatinine 0.6, GFR greater than 60, glucose 100, calcium 10.1, phosphorus 2.8, and magnesium 1.7. Total bili 1.9 and direct bili 0.6. LFTs are normal. Urine culture is Gram-negative nghia greater than 100,000. IMPRESSION AND PLAN: 1. Agitation and confusion with history of confusion as per the patient's family. 2. History of noncompliance. 3. Atrial fibrillation. 4. Right axis deviation. 5. Inferior coronary ischemia. 6. Gram-negative nghia urinary tract infection. 7. Left ventricular ejection fraction of 68% with severe pulmonary hypertension and severe tricuspid regurgitation. 8. Fizbcihn-sl-nldowyut dilated right and left atrium. 9. Mildly thickened mitral valve. 10. Severe tricuspid regurgitation, severe pulmonary hypertension. 11. Possible dementia. 12. Questionable encephalopathy. 13. Bilateral multilobar multifocal pneumonia and airspace disease. 14. Bibasilar peribronchial thickening with lower airway disease. 15. Cardiomegaly. 16. Pulmonary hypertension with dilated pulmonary artery. 17. Atherosclerotic calcification. 18. Pleural effusion. 19. Hypertension. 20. Leukocytosis with granulocytosis. 21. Questionable systemic inflammatory response syndrome. 22. Coumadin-dependent atrial fibrillation. 23. Hyper and hypokalemia. 24. Mild hyperbilirubinemia. 25. Questionable prediabetes with hemoglobin A1c of 5.7. 26. Hypovitaminosis D. 27. Hypokalemia. 28. Gram-negative nghia urinary tract infection with proteinuria, microscopic hematuria, pyuria, and bacteriuria. 29. Old healed left ankle trimalleolar fracture with ankle deformity and calcification of the intraosseous syndesmosis. 30. 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 31. Questionable behavioral disorder with episodic agitation, confusion and noncompliance. 32. Bilateral lower extremity venous stasis. 33. Possible dementia versus delirium. 34. Hearing deficit. 35. Right-sided diastolic congestive heart failure with [id number] pulmonary hypertension. 36. Hyperlipidemia. 37. Hypomagnesemia. Plan at this time, I have met with the patient's other daughter today , yesterday I spoke at length with the patient's other daughter, Amarilis. According to the patient's daughter who I met today, the patient has been uncooperative, confused and agitated even at home and but the patient has been noncompliant. Plan at this time, the patient has been ordered Neurology and Psychiatry consultation. MRI of the brain ordered. Repeat CMP, LFT, magnesium, phosphorus, and daily PT/PTT has been ordered. Coumadin will be resumed once the INR is within therapeutic range of around 2 to 2.5. CURRENT CONSULTATION: Cardiology, Neurology, ENT, and Psychiatry. CURRENT MEDICATIONS: The patient is started on Aricept 5 mg at bedtime. The patient is on Ciprodex Otic 5 drops right ear b.i.d., Colace 100 mg three times a day, Cozaar 50 mg daily, Debrox eardrops 4 mL twice a day, Vibramycin 100 mg IV every 12 hours, Drisdol 50,000 units weekly, Ecotrin 81 mg daily, Lasix 20 mg IV every 12 hours, Lipitor 40 mg daily, Lopressor 25 mg twice a day, magnesium sulfate 2 g rider, cefepime 1 g IV every 8 hours, Protonix 40 mg daily, Pulmicort nebulizer 0.25 mg every 12 hours, Tylenol p.o. suppository p.r.n., Xopenex nebulizer 0.63 mg every 6 hours, and Zofran 4 mg IV every 4 hours p.r.n. MRI brain ordered, incentive spirometer, oxygen, and repeat EKG ordered. Heart-healthy diet, ANTONIO stockings. Head of the bed at 30 degrees, out of bed, physical therapy, and occupational therapy ordered. The patient's condition management discussed at length with the patient's family and the daughters at length. All questions concerned answered. The patient's daughters informed that the patient most likely will require 24-hour care and supervision upon discharge. In addition, the patient's Lasix will be increased to 40 mg IV every 12 hours. The patient will be started on supplemental potassium and K-Dur 10 mEq b.i.d. Lasix is increased. Potassium was started with IV Lasix dose. Repeat labs ordered. In order to optimize congestive heart failure and control blood pressure. At present, the patient will be continued on telemetry with further close management at length. All questions concerned answered to the patient's family at length. The patient's family advised to contact the [facility] and case management for discharge planning. Dictated and electronically signed, not read. Santos Sultana MD
--- NOTE | 2018-08-29 22:10 | CARD ---
APPROVED REPORT Date of service: 08/29/2018 EKG Measurement Heart [id number] <Conclusion> Atrial fibrillation with premature ventricular or aberrantly conducted complexes Septal infarct, age undetermined St & T wave abnormality, consider inferolateral ischemia Abnormal ECG
[2018-08-30] MEDS: Levalbuterol 0.63 MG/3 ML Inhal Soln UD IH SCH ×4 (01:14→19:42)
[2018-08-30] MEDS: Pantoprazole 40 mg EC Tab PO SCH (05:10)
[2018-08-30] MEDS: Potassium Chloride 10 mEq ER Tab PO SCH ×2 (05:11→18:08)
[2018-08-30] MEDS: Cefepime 1gm in NS 100ml 1 GM/100 ML BAG IVPB SCH ×3 (05:12→19:32)
[2018-08-30] MEDS: Budesonide 0.25 mg/2 ml Inhal Susp UD IH SCH ×2 (07:25→19:42)
[2018-08-30 07:54] LABS: INR 2.06
[2018-08-30 09:14] LABS: ALB/GLOB RATIO 1.1 (1.1-1.8); ALBUMIN 4.5 g/dL (3.0-4.8); ALT/SGPT 27 U/L (7-56); AST/SGOT 27 U/L (14-36); BILIRUBIN,DIRECT 0.9 mg/dL (0.0-0.4); BLOOD UREA NITROGEN 18 mg/dL (7-21); CALCIUM 10.3 mg/dL (8.4-10.5); GFR NON-AFRICAN AMERICAN > 60
--- NOTE | 2018-08-30 09:45 | PN ---
DATE: 08/28/2018 SUBJECTIVE: episodic confusion and forgetfulness. PHYSICAL EXAMINATION: GENERAL: The patient is seen lying in the bed. VITAL SIGNS: T-max 98.4. Telemetry shows atrial fibrillation, heart rate 68, 98 and 89. Blood pressure 187/97, 160/80, 151/78, 164/114. Respirations are 19. O2 saturation is 97% to 98%. HEENT: Head is normocephalic and atraumatic. HEENT examination shows pink conjunctivae, anicteric sclerae, no oropharyngeal lesion. Positive hard of hearing noted. NECK: No neck rigidity. CHEST: Kyphosis. LUNGS: Decreased breath sounds at the bases. Positive crepitus, rales, crackles, and rhonchi bilaterally. CARDIOVASCULAR: S1 and S2, irregular rhythm. Positive systolic murmur in left sternal border, right second intercostal space, left second intercostal space. ABDOMEN: Soft. Positive bowel sounds. No palpable hepatosplenomegaly noted. GENITALIA: Female. RECTAL: Deferred. EXTREMITIES: Positive left ankle and foot deformity. Positive swelling of the lower extremities bilaterally. MUSCULOSKELETAL: Shows a body mass index of 49. Gait examination could not be tested. DIAGNOSTICS: The diagnostics for the last 24 hours are reviewed. IMPRESSION: 1. Acute exacerbation of possible diastolic congestive heart failure with symptoms of shortness of breath. 2. Atrial fibrillation. 3. History of hypertension, hyperlipidemia, coronary artery disease, angioplasty and stent placement. 4. History of left ankle fracture. 5. History of cystoscopy and stent placement. 6. Questionable decubitus ulceration. 7. Chest pain versus questionable unstable angina. 8. Bilateral lower extremity venous stasis. 9. Leukocytosis with granulocytosis. 10. Mild normocytic anemia. 11. Coumadin-dependent atrial fibrillation. 12. Hyperkalemia. 13. Hyperglycemia. 14. Acute exacerbation of diastolic congestive heart failure with elevated proBNP. 15. microscopic hematuria, pyuria, bacteruria. 16. Cardiomegaly. 17. Bilateral multilobar pneumonia . 18. Pulmonary hypertension with dilated pulmonary artery. 19. Healed left ankle trimalleolar fracture with left ankle deformity and intraosseous syndesmosis. 20. 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 21. Premature ventricular contraction and coronary ischemic changes. 22. Episodic forgetfulness. 23. History of nephrolithiasis, history of urinary tract infection, history of hearing deficit, history of left ankle fracture, dysfunction. 24. Osteoporosis. 25. History of transient ischemic infarct. 26. History of shingles. 27. History of anemia, history of leukocytosis, history of Coumadin-dependent atrial fibrillation. 28. History of hyperprocalcitoninemia. 29. Renal cyst. 30. Bilateral nonobstructing nephrolithiasis with mild hydroureter, hydronephrosis. 31. History of cystoscopy and retrograde pyelogram. 32. History of unstable angina, history of patent stent of the left anterior descending artery, history of severe pulmonary hypertension with right ventricular systolic pressure of 72 mmHg and history of dilated left and right atrium, history of severe tricuspid regurgitation, history of atrial fibrillation with frequent premature ventricular contractions. 33. History of deconditioning. 34. History of questionable neuropathy. PLAN: At this time, the patient is to be continued on telemetry. Serial labs ordered. Vitamin D pending. Hemoglobin A1c level pending. Repeat labs ordered. Urine culture results pending. Current consultations: Cardiology and ENT. The patient is on Colace 100 mg three times a day, Cozaar 50 mg daily, Debrox ear drops to both ears twice a day. The patient is started on doxycycline 100 mg IV every 12 hours, Drisdol 50,000 units weekly, Ecotrin 81 mg daily, Lasix 20 mg IV every 12 hours, Lipitor 40 mg daily, Lopressor 25 mg twice a day. The patient is on cefepime 1 g IV every 8 hours, Protonix 40 mg IV, , Tylenol, BuSpar every 6 hours p.r.n., Xopenex nebulizer 0.63 mg every 6 hours, Zofran 4 mg IV every 4 hours p.r.n. The patient's repeat EKG has been ordered. The patient is on heart healthy diet. Out of bed. SCDs, ANTONIO stockings. Physical therapy and occupational therapy ordered. The patient's condition, diagnoses, overall guarded to poor prognosis were discussed and explained to the patient's daughter, Melita Knapp via the phone on [phone]. I have updated and explained to the patient's daughter about the patient's condition and diagnoses and overall guarded prognosis. I had a detailed discussion with the patient's daughter and . Dictated and electronically signed, not read. Santos Sultana MD
--- NOTE | 2018-08-30 09:51 | CP.PCM.CON ---
History of Present Illness - History of Present Illness History of Present Illness: This is a 83 yo female admitted for chest pain , asked to evaluate due to hearing loss Patient states progressive hearing loss AU. Denies otorrhea / otalgia / tinnitus No significant history of prior ear issues / noise exposure / trauma Patient denies any other ENT complaints Review of Systems - EENT Eyes: As Per HPI Past Patient History - Infectious Disease Hx of Infectious Diseases: None - Past Social History Smoking Status: Never Smoked - CARDIAC Hx Pacemaker: No - PULMONARY Hx Respiratory Disorders: No - NEUROLOGICAL Hx Neurological Disorder: Yes Hx Dizziness: Yes - HEENT Hx HEENT Problems: No - RENAL Hx Chronic Kidney Disease: Yes Hx Kidney Stones: Yes - ENDOCRINE/METABOLIC Hx Diabetes Mellitus Type 1: No Hx Diabetes Mellitus Type 2: No Hx Hypothyroidism: No - HEMATOLOGICAL/ONCOLOGICAL Hx Cancer: No - INTEGUMENTARY Hx Dermatological Problems: Yes Other/Comment: Shingles on left side of neck on 04/14/16. -09-02 LEFT HIP WITH IRREGULARLY SHAPED STAGE 2 PRESSURE ULCER .MEASURES 1.5 X 2.5 CM. RED AREA. MILD SEROUS DRAINAGE.01-20-17 HEALING .FLAT REDDENED AREA.DRY.3 X 4 CM . BILATERAL LE DARK TO LIGHT BROWNISH SKIN. DISCOLORATION.EDEMA +1.PITTING - MUSCULOSKELETAL/RHEUMATOLOGICAL Hx Arthritis: Yes - GASTROINTESTINAL Hx Gastrointestinal Disorders: No - GENITOURINARY/GYNECOLOGICAL Hx Genitourinary Disorders: Yes Hx Incontinence: Yes Hx Urinary Tract Infection: Yes - PSYCHIATRIC Hx Psychophysiologic Disorder: No Hx Emotional Abuse: No Hx Physical Abuse: No Hx Substance Use: No - SURGICAL HISTORY Hx Mastectomy: No - ANESTHESIA Hx Anesthesia Reactions: No Hx Malignant Hyperthermia: No Meds Allergies/Adverse Reactions: Allergies Allergy/AdvReac Type Severity Reaction Status Date / Time No Known Allergies Allergy Verified 11/10/17 18:22 - Medications Medications: Current Medications Acetaminophen (Tylenol 325mg Tab) 650 mg PO Q6 PRN PRN Reason: TEMP>=99.5F Acetaminophen (Tylenol 650 Mg Supp) 650 mg RC Q6H PRN PRN Reason: TEMP>=99.5F Aspirin (Ecotrin) 81 mg PO DAILY [facility] Last Admin: 08/28/18 10:21 Dose: 81 mg Atorvastatin Calcium (Lipitor) 40 mg PO DIN [facility] [place] Last Admin: 08/28/18 17:18 Dose: 40 mg Budesonide (Pulmicort Respules) 0.25 mg IH [id number] [facility] [place] Last Admin: 08/29/18 08:10 Dose: 0.25 mg Carbamide Peroxide (Debrox Ear Drops) 4 ml AU BID [facility] [place] Ciprofloxacin/Dexamethasone (Ciprodex Otic) 5 drop AD BID [facility] [place] Last Admin: 08/28/18 23:30 Dose: 5 drop Docusate Sodium (Colace) 100 mg PO TID [facility] [place] Last Admin: 08/28/18 17:18 Dose: 100 mg Ergocalciferol (Drisdol 50,000 Intl Units Cap) 1 cap PO Q7D [facility] [place] Last Admin: 08/28/18 17:18 Dose: 1 cap Furosemide (Lasix) 20 mg IVP Q12 [facility] [place] Last Admin: 08/28/18 22:41 Dose: 20 mg Cefepime HCl (Maxipime 1gm) 1 gm in 100 mls @ 100 mls/hr IVPB Q8 [facility] [place]; Protocol Last Admin: 08/29/18 06:55 Dose: 100 mls/hr Doxycycline Hyclate 100 mg/ (Sodium Chloride) 100 mls @ 100 mls/hr IVPB Q12 [facility] [place]; Protocol Last Admin: 08/28/18 21:03 Dose: 100 mls/hr Magnesium Sulfate (Magnesium Sulfate 2 Gm/50 Ml Water) 2 gm in 50 mls @ 50 mls/hr IVPB ONCE ONE Stop: 08/29/18 10:54 Potassium Chloride (Potassium Chloride 20 Meq/100 Ml) 20 meq in 100 mls @ 50 mls/hr IVPB Q2H [facility] [place] Stop: 08/29/18 13:59 Levalbuterol HCl (Xopenex) 0.63 mg IH [id number] [facility] [place] Last Admin: 08/29/18 08:10 Dose: 0.63 mg Losartan Potassium (Cozaar) 50 mg PO DAILY [facility] [place] Last Admin: 08/28/18 17:19 Dose: 50 mg Metoprolol Tartrate (Lopressor) 25 mg PO BID [facility] [place] Last Admin: 08/28/18 17:19 Dose: 25 mg Ondansetron HCl (Zofran Inj) 4 mg IVP Q4H PRN PRN Reason: Nausea/Vomiting Pantoprazole Sodium (Protonix Ec Tab) 40 mg PO 0600 [facility] [place] Last Admin: 08/29/18 06:56 Dose: 40 mg Physical Exam - Constitutional Appears: No Acute Distress - Head Exam Head Exam: ATRAUMATIC, NORMAL INSPECTION, NORMOCEPHALIC - Eye Exam Eye Exam: EOMI, PERRL - ENT Exam ENT Exam: Normal External Ear Exam Additional comments: EAC noted to have severe cerumen impactions AD > removed via alligator forceps / irrigation - patient tolerated procedure well - Expanded ENT Exam Expanded TM/Canal Exam: Canal Tenderness: Right, Erythema: Right Mouth exam: normal external inspection - Neck Exam Neck exam: Positive for: Normal Inspection - Respiratory Exam Respiratory Exam: NORMAL BREATHING PATTERN - GI/Abdominal Exam GI & Abdominal Exam: Normal Bowel Sounds, Soft - Neurological Exam Neurological exam: Alert, Oriented x3 - Psychiatric Exam Psychiatric exam: Normal Affect, Normal Mood Results - Vital Signs Recent Vital Signs: Last Vital Signs Temp 98.7 F 08/29/18 06:00 Pulse 80 08/29/18 06:00 Resp 20 08/29/18 06:00 BP 150/83 08/29/18 06:00 Pulse Ox 97 08/29/18 06:00 - Labs Result Diagrams: 08/29/18 07:00 08/29/18 07:00 Labs: Laboratory Results - last 24 hr 08/28/18 08/29/18 08/29/18 07:00 07:00 07:00 WBC 10.3 RBC 3.97 Hgb 11.7 L Hct 36.0 MCV 90.7 MCH 29.5 MCHC 32.5 RDW 15.3 H Plt Count 200 MPV 10.6 Gran % 71.8 H Lymph % (Auto) 12.5 L Smyth % (Auto) 14.8 H Eos % (Auto) 0.6 L Baso % (Auto) 0.3 Gran # 7.40 H Lymph # (Auto) 1.3 Smyth # (Auto) 1.5 H Eos # (Auto) 0.1 Baso # (Auto) 0.03 PT INR APTT Sodium 138 Potassium 3.3 L Chloride 99 Carbon Dioxide 29 Anion Gap 14 BUN 15 Creatinine 0.6 L Est GFR ( Amer) > 60 Est GFR (Non-Af Amer) > 60 Random Glucose 100 Calcium 10.1 Phosphorus 2.8 Magnesium 1.7 Total Bilirubin 1.9 H Direct Bilirubin 0.6 H AST 26 ALT 32 Alkaline Phosphatase 114 Total Protein 8.1 Albumin 4.3 Globulin 3.8 Albumin/Globulin Ratio 1.1 25-OH Vitamin D Total 30.2 08/29/18 07:00 WBC RBC Hgb Hct MCV MCH MCHC RDW Plt Count MPV Gran % Lymph % (Auto) Smyth % (Auto) Eos % (Auto) Baso % (Auto) Gran # Lymph # (Auto) Smyth # (Auto) Eos # (Auto) Baso # (Auto) PT 31.6 H INR 2.69 APTT 37.1 H Sodium Potassium Chloride Carbon Dioxide Anion Gap BUN Creatinine Est GFR ( Amer) Est GFR (Non-Af Amer) Random Glucose Calcium Phosphorus Magnesium Total Bilirubin Direct Bilirubin AST ALT Alkaline Phosphatase Total Protein Albumin Globulin Albumin/Globulin Ratio 25-OH Vitamin D Total Assessment & Plan (1) Bilateral impacted cerumen Status: Acute Comment: s/p removal (2) Acute reactive otitis externa, right ear Status: Acute Comment: Ciprodex 5 drops AD BID x 3 days (3) Presbycusis of both ears Status: Acute Comment: check Audio / tymp / Hearing aid evaluation as outpatient if symptoms persist
[2018-08-30] MEDS ORDERED: Haloperidol Lactate 2 mg/ml Liquid PO PRN (10:59)
--- NOTE | 2018-08-30 11:05 | MRI ---
Date of service: 08/30/2018 PROCEDURE: MRI BRAIN WITHOUT CONTRAST HISTORY: AMS COMPARISON: None available. TECHNIQUE: Multiplanar, multisequence MR images of the brain were obtained without intravenous contrast enhancement. FINDINGS: HEMORRHAGE: None DWI: No evidence of an acute or early subacute infarction. BRAIN PARENCHYMA: No mass effect or edema. Minimal chronic microvascular changes and mild atrophy. VENTRICLES: Unremarkable. No hydrocephalus. CRANIUM: Unremarkable. ORBITS: Grossly unremarkable. PARANASAL SINUSES/MASTOIDS: Clear VASCULAR SYSTEM: Skull base flow voids intact. OTHER FINDINGS: None. IMPRESSION: Unremarkable non contrast enhanced MRI of the brain.
[2018-08-30] MEDS: Ciprofloxacin/Dexamethasone OTIC SUSP AD SCH ×2 (11:08→18:09)
--- NOTE | 2018-08-30 12:20 | CON ---
DATE: 08/30/2018 HISTORY OF PRESENT ILLNESS: The patient is a 83-year-old white female with numerous medical issues (please refer to medical notes for full history), who is being evaluated on the medical floor after she presented with chest pain and shortness of breath. The patient denies having any psychiatric history and [facility] seems to confirm this. The patient denies having any suicide attempts, psychiatric history or any current depression, and there appeared to be prior psychiatric consultations for this patient during her other prior medical admissions. Psychiatry consulted because of the patient's change in mental status and according to the patient's family members, the patient has been increasingly forgetful, uncooperative and confused as well as disoriented at home, and she is mainly bed bound. She resides with family and obtains home-health services with physical therapy. I met with the patient and she is confused. She is aware that she is in the hospital. She questions whether it is August. She is unable to give me the correct year; however, she consistently indicated that she has no psychiatric history and she denies to have any psychiatric concerns in general. Reports that she slept fairly well, and nursing notes indicates that she had slept at intervals overnight, this is consistent. The patient is generally cooperative, but not entirely engaged with my interview or . She appears preoccupied, tired and forgetful consistent with family's observations. Her insight and judgment are limited. She does not appear to be hallucinating and delusions were not elicited. She denies having any perceptual disturbance in terms of hearing voices or mind playing tricks on her either. Vital signs and labs were reviewed. RELEVANT PSYCHIATRIC MEDICATIONS: The patient is not on any relevant psychiatric medications at this time. PAST PSYCHIATRIC HISTORY: As noted above, the patient denies having any prior psychiatric history including suicide attempts, medications trials, outpatient treatment. This account has been in part confirmed by reviewing [facility] reports which do not indicate any prior admissions or followup by psychiatric consultation services. SOCIAL HISTORY: The patient resides at home and is mainly bed bound. IMPRESSION: As reviewed in prior medical progress notes, the patient's medical team has already been considering possibility of dementia versus delirium, and I agree with medical team's assessment. Of note, the patient is at baseline; however, she is 83 years old and most definitely suffering some sort of age-related cognitive decline if not dementia. Delirium might be also complicating her presentation at this time as the patient has multiple medical issues. RECOMMENDATIONS: I agree with medical team. The patient very likely requires 24-hour care and supervision and apparently this has been relayed to the family already. Regarding psychiatric concerns, we cannot treat delirium as the medical issue and we can only treat the behavioral and psychiatric manifestations of dementia and delirium, in which case, I will try a very small dose of Haldol 0.25 mg every 8 hours p.r.n. for agitation, although she does not appear to have any acute combative or overtly aggressive episodes, I will add this p.r.n. just in case. Psychiatry will signoff. Please reconsult p.r.n. Julio Charles MD
--- NOTE | 2018-08-30 12:52 | PN ---
DATE: 08/30/2018 LOCATION: Room 262, bed 2. SUBJECTIVE: Overnight nurse's notes were reviewed. The patient was found to be alert, awake and responsive. There was no episodes of agitation, confusion, restlessness, screaming and yelling was documented. PHYSICAL EXAMINATION: VITAL SIGNS: T-max 98.3. Telemetry shows atrial fibrillation, heart rate 76-82, output is 2400, blood pressure 151/92, respiration 20 and O2 sat 93%. HEENT: Head is normocephalic and atraumatic. HEENT examination shows pink conjunctivae. Anicteric sclerae. No oropharyngeal lesion. No neck rigidity. CHEST: Kyphosis. LUNGS: Shows positive decreased breath sound at the bases. Positive rhonchi. Occasional . CARDIOVASCULAR: S1, S2, irregular rhythm. Positive systolic murmur left sternal border, right second intercostal space, left second intercostal space. ABDOMEN: Soft. Positive bowel sounds. No palpable hepatosplenomegaly. GENITALIA: Female. RECTAL: Deferred. EXTREMITIES: Shows positive swelling of the lower extremity. Positive ANTONIO stockings. MUSCULOSKELETAL: As per the body mass index. NEUROLOGIC: Cranial nerves II-XII limited. Gait examination not tested. DIAGNOSTICS DATA: August 30, 2018, PT 24.0 and INR 2.06. Sodium 139, potassium 3.9, chloride 97, CO2 of 33, BUN 18, creatinine 0.7, glucose 100, calcium 10.3, phosphorus 3.6, magnesium 1.9, total bili 1.5 and direct bili 0.9. Urine cultures are gram-negative nghia. EKG shows atrial fibrillation, premature ventricular contraction and inferolateral ischemia. IMPRESSION: 1. Chest pain, questionable angina. 2. Congestive heart failure. 3. Pulmonary hypertension with right-sided diastolic congestive heart failure. 4. Coumadin-dependent atrial fibrillation. 5. Encephalopathy with episodic altered mental status. 6. Episodic agitation, confusion, disorientation. 7. Possible early dementia. 8. Hearing deficit. 9. Normocytic anemia. 10. Gram-negative nghia urinary tract infection. 11. Atrial fibrillation with premature ventricular contraction and inferolateral coronary ischemia. 12. Mild hyperbilirubinemia. 13. Hypertension. 14. Hypoxemia. 15. Gait dysfunction. 16. Deconditioning. PLAN: At this time, the patient is to be continued on broad-spectrum IV antibiotics, cefepime for gram-negative nghia urinary tract infection. We are awaiting Cardiology evaluation. The patient is started on low-dose Coumadin 2.5 mg daily with daily monitoring of the chemistries and PT/INR. The patient has been ordered an MRI of the brain. The results of which are pending. We are awaiting Cardiology, Psychiatry, and Neurology evaluation. The patient has been ordered out of bed to chair, physical therapy, ambulation therapy and gait training has been ordered. The patient's medications will be continued as per the MAR of today which was reviewed and modified. The patient's family including the daughters have been updated about the patient's condition, overall guarded to poor prognosis. The patient and also family was also advised the patient's need for 24 hours care and supervision upon discharge from the hospital. The patient's daughters have been advised to contact [employer] regarding discharge planning and options. The patient's further management will be dependent upon the patient's clinical condition, hemodynamic status and as per the patient response to therapeutic intervention as per the patient's diagnostic test results and as per recommendation by Cardiology, Neurology and Psychiatry. Dictated and electronically signed, not read. Santos Sultana MD
--- NOTE | 2018-08-30 13:00 | CP.PCM.PCO ---
Physician Communication Note - Physician Communication Note Physician Communication Note: MRI results pending
--- NOTE | 2018-08-30 19:15 | CON ---
DATE: 08/30/2018 CARDIOLOGY CONSULTATION HISTORY: The patient is an 83-year-old woman with chronic atrial fibrillation, who presents with an episode of chest pressure. The symptoms have since resolved. In reviewing her past medical history, this includes chronic atrial fibrillation treated with anticoagulation, hypertension, and documented patent stents in two vessels documented by a cardiac catheterization in 2017. Currently, the patient is chest pain free. No shortness of breath. No chest pain. The patient has baseline confusion. However, the patient is awake and alert and able to carry on a conversation. SOCIAL HISTORY: The patient does not smoke. REVIEW OF SYSTEMS: Fourteen-point review of systems is reviewed in detail. No additional symptoms are noted. PHYSICAL EXAMINATION: VITAL SIGNS: Blood pressure is 151/92, the heart rate is in the 70s, atrial fibrillation. NECK: Negative JVD. LUNGS: Without rales. CARDIAC: Heart rate S1, S2. EXTREMITIES: Without edema. EKG shows atrial fibrillation with nonspecific ST-T changes. BUN and creatinine are unremarkable. Troponin is negative. Hemoglobin is 11.7 with an INR of 2.06. IMPRESSION: 1. Transient chest discomfort, which is currently now resolved. 2. No evidence for acute coronary syndrome. 3. Chronic atrial fibrillation. 4. Hypertension. 5. Documented PTCA and stent in the past. 6. Mild confusion. PLAN: Given these findings, there is no further cardiac workup indicated at this time. There is no evidence for acute coronary syndrome. We would continue the patient on her Coumadin. Teodoro Gonzalez MD
[2018-08-31] MEDS: Levalbuterol 0.63 MG/3 ML Inhal Soln UD IH SCH ×3 (01:01→13:25)
[2018-08-31] MEDS: Cefepime 1gm in NS 100ml 1 GM/100 ML BAG IVPB SCH ×2 (01:02→06:10)
[2018-08-31 05:53] VITALS: O2SAT 98
[2018-08-31] MEDS: Pantoprazole 40 mg EC Tab PO SCH (06:11)
[2018-08-31] MEDS: Potassium Chloride 10 mEq ER Tab PO SCH (06:11)
[2018-08-31 07:09] LABS: INR 2.32; PARTIAL THROMBOPLASTIN TIME 33.6 Seconds (25.1-36.5); PROTHROMBIN TIME 27.2 SECONDS (9.4-12.5)
[2018-08-31] MEDS: Budesonide 0.25 mg/2 ml Inhal Susp UD IH SCH (07:45)
[2018-08-31 07:51] LABS: ALB/GLOB RATIO 1.1 (1.1-1.8); ALBUMIN 4.3 g/dL (3.0-4.8); ALT/SGPT 25 U/L (7-56); AST/SGOT 31 U/L (14-36); BILIRUBIN,DIRECT 0.6 mg/dL (0.0-0.4); BLOOD UREA NITROGEN 35 mg/dL (7-21); CALCIUM 10.3 mg/dL (8.4-10.5); GFR NON-AFRICAN AMERICAN > 60
--- NOTE | 2018-08-31 08:14 | CON ---
DATE: 08/30/2018 NEUROLOGY CONSULT NOTE CHIEF COMPLAINT: Altered mentation. HISTORY OF PRESENT ILLNESS: The patient is hard of hearing. She has past medical history of AFib, hypertension, CAD, status post presented to the ER with some intermittent chest pain substernal area, no radiation, was also little bit delirious, got confused, therefore to call to evaluate. MRI of the brain showed no acute intracranial abnormalities. No focal weakness seen on the extremities. She is deconditioned, but otherwise follows simple commands. She does have features of mild cognitive impairment on neuro exam, otherwise, intact. She has a mild headache today, but have poor sleep overnight. She is on Aricept for cognitive impairment. She is on Coumadin for history of AFib and also has a urinary tract infection, going to E. coli, on antibiotics. PAST MEDICAL HISTORY: AFib, hypertension, hyperlipidemia, coronary artery disease, status post stents. ALLERGIES: NO KNOWN DRUG ALLERGIES. PAST SURGICAL HISTORY: stent, left ankle ORIF. SOCIAL HISTORY: No illicit drug use, smoking or EtOH abuse. FAMILY HISTORY: Noncontributory. MEDICATIONS: Reviewed by nurse's reconciliation sheet. REVIEW OF SYSTEMS: Fourteen-point review of systems is as per HPI. LABORATORY DATA: Sodium is 139, potassium 3.9, chloride 97, carbon dioxide of 33, BUN of 18, creatinine 0.7, random glucose 10.3. Urine culture shows E. coli. PHYSICAL EXAMINATION: VITAL SIGNS: Temperature 98.5, pulse rate of 81, blood pressure 140/87, respiratory rate 20, and oxygen saturation 90% on room air. GENERAL: The patient is sitting up in bed, in no acute distress. HEENT: Head is atraumatic, normocephalic. PERRLA. Extraocular muscles intact. NECK: Supple. No JVD. No adenopathy noted. LUNGS: Clear to auscultation. No adventitious sounds. HEART: S1 and S2. Irregular rate and rhythm. No murmurs, rubs or gallops. ABDOMEN: Soft and nontender and nondistended. Bowel sounds are present. EXTREMITIES: +2 pedal edema bilaterally . NEUROLOGIC: The patient is alert and oriented to person, place, and year. Recall after 5 minutes is 0/3. Poor attention span. Slow thought process. Cranial nerves II through XII are intact. Motor exam: Moves all extremities equally. No pronator drift seen. Sensory exam; decreased light touch, pinprick up to the calves bilaterally, and decreased vibration of the toes. DTRs are 2+ throughout and 1 at both knees and ankles. Coordination; [id number] is intact. No dysmetria noted. ASSESSMENT AND PLAN: An 83-year-old woman with history of hard of hearing with past medical history of atrial fibrillation, hypertension, hyperlipidemia, coronary artery disease, status post stent presented to the hospital for intermittent chest pain also with hard hearing, found to have acute reactive otitis externa as well as bilateral impacted cerumen seen by ENT, was called for transient confusion and has urine culture positive for E. coli, transient confusion state is secondary to some urinary tract infection superimposed underlying chronic deconditioned stay and mild cognitive impairment. RECOMMENDATIONS: At this time, we recommend: 1. Continue with Aricept 5 mg p.o. daily. 2. Continue with Coumadin instead for stroke prevention given her history of AFib. 3. Physical therapy and occupational therapy evaluation. 4. Keep her systolic blood pressure between 120s to 130s and diastolic to 70s to 80s to prevent hypertensive urgency events. 5. Monitor electrolytes and correct accordingly and delirium precautions. Hakeem Mock MD
[2018-08-31] MEDS ORDERED: Lidocaine 5% Patch TD SCH (11:45)
[2018-08-31 12:01] VITALS: RESP 18
[2018-08-31] MEDS: Ciprofloxacin/Dexamethasone OTIC SUSP AD SCH (12:58)
[2018-08-31 17:51] VITALS: BP 154/85; PULSE 63; TEMP 98.7
--- NOTE | 2018-08-31 17:57 | PN ---
DATE: 08/31/2018 CARDIOLOGY FOLLOWUP SUBJECTIVE: The patient is chest pain free. PHYSICAL EXAMINATION: VITAL SIGNS: Blood pressure 127/76, heart rates in the 80s. NECK: Negative JVD. LUNGS: Without rales. HEART: Reveal S1, S2. EXTREMITIES: Without edema. LABORATORY DATA: BUN and creatinine are unremarkable. Hemoglobin is 11.7. Troponins are negative x3. IMPRESSION: 1. Stable angina. 2. No evidence for acute coronary syndrome. 3. Coronary artery disease. 4. History of percutaneous transluminal coronary angioplasty and stent. 5. Mild confusion. Given these findings, the patient is currently asymptomatic. Her last stress test which is in 2017 revealed good LV function. We will arrange for an outpatient stress test including a Lexiscan. Teodoro Gonzalez MD
--- NOTE | 2018-08-31 21:06 | DS ---
HISTORY OF PRESENT ILLNESS: The patient is seen in room 262, bed 2. Overnight nurse's notes were reviewed. The patient stayed relatively calm, no adverse events were documented or reported to me. PHYSICAL EXAMINATION: VITAL SIGNS: T-max 98.2. Telemetry shows atrial fibrillation, heart rate 60, 65, 74, blood pressure 147/75, respiration 20, O2 sat is 98%. HEENT: Head is normocephalic, atraumatic. HEENT examination shows pinkish conjunctivae. Anicteric sclerae. No oropharyngeal lesion. No neck rigidity. CHEST: Kyphosis. LUNGS: Shows positive rhonchi bilaterally which is decreased since admission. CARDIOVASCULAR: S1, S2, irregular rhythm. Positive systolic murmur at the left sternal border, right second intercostal space, left second intercostal space. ABDOMEN: Soft. Positive bowel sound. No palpable hepatosplenomegaly. GENITALIA: Female. RECTAL: Deferred. EXTREMITIES: Shows positive ANTONIO stockings. MUSCULOSKELETAL: As per the body mass index. NEUROLOGIC: The patient is alert, awake, responsive, follows command. Moves upper and lower extremity without assistance. The patient need assistance from to be out of bed to chair and assistance to sit up from the lying position. DIAGNOSTICS: On 08/31/2018, PT 27.2, INR 2.32. Urine cultures, Escherichia coli urinary tract infection which is pansensitive. Sodium 139, potassium 3.8, chloride 97, CO2 of 33, BUN 35, creatinine 0.8, glucose 102, calcium 10.3, phosphorus 4.2, magnesium 1.8. LFTs are within normal limit. FINAL IMPRESSION, PLAN AND DISCHARGE DIAGNOSES: 1. Chest pain, etiology undetermined. 2. Diastolic right-sided congestive heart failure. 3. Atrial fibrillation. 4. Multilobar bilateral community-acquired pneumonia. 5. Coumadin-dependent atrial fibrillation. 6. Gait dysfunction. 7. Deconditioning. 8. Possible early dementia and delirium. 9. History of Escherichia coli urinary tract infection. 10. Microvascular ischemic disease of the brain. 11. Acute reactive otitis externa. 12. Bilateral cerumen impaction. 13. Hearing deficit, probably secondary to above. 14. History of poor compliance and noncompliance. 15. Bilateral lower extremity venous stasis secondary to right-sided diastolic congestive heart failure. PLAN: At this time, the patient has been seen by Psychiatry, Neurology, Cardiology, and ENT, their recommendations are reviewed and noted. The patient's daughters has been updated about the patient's condition. I have spoken to the patient's daughter and advised earlier that the patient most likely will require 24-hour care and supervision upon discharge. At present, the patient will be considered for discharge to TCU if accepted. If the patient not accepted to TCU, the patient will be discharged to subacute rehab of the patient's family if the patient accepted to subacute rehab. If the patient is not accepted to TCU or subacute rehab, the patient will be discharged home with [facility], home physical therapy. If the patient is discharged home, the patient and the patient's daughter has been advised that the patient needs followup within [address] Sultana. The patient's discharge medications will be as per the revised and updated ambulatory orders and the new prescriptions if the patient is discharged home. As mentioned, the patient will be considered for discharge to TCU if accepted, otherwise if not accepted to TCU, the patient will be considered for discharge to subacute rehab . Time spent in the discharge process 45 minutes. Dictated and electronically signed, not read. Santos Sultana MD
--- NOTE | 2018-09-01 09:02 | CP.PCM.PCO ---
Physician Communication Note - Physician Communication Note Physician Communication Note: pt was discharged
== END 2018-08-31 19:32 | disposition home health service (06) | DRG 313 ==
LOC: ED 17:37 → ERH 19:28 → 2RNO 23:23 → OBSVTOIN 08-28 16:23
PROVIDERS: ADMIT Internal Medicine; ATTEND Internal Medicine
DX: R07.9 Chest pain, unspecified (principal); J18.9 Pneumonia, unspecified organism; I50.33 Acute on chronic diastolic (congestive) heart failure; I24.9 Acute ischemic heart disease, unspecified; N39.0 Urinary tract infection, site not specified; G93.40 Encephalopathy, unspecified; N13.6 Pyonephrosis; R17 Unspecified jaundice; I67.82 Cerebral ischemia; I11.0 Hypertensive heart disease with heart failure; I25.10 Atherosclerotic heart disease of native coronary artery without angina pectoris; B96.89 Other specified bacterial agents as the cause of diseases classified elsewhere; I27.20 Pulmonary hypertension, unspecified; Z91.19 Patient's noncompliance with other medical treatment and regimen; R45.1 Restlessness and agitation; I49.3 Ventricular premature depolarization; H60.501 Unspecified acute noninfective otitis externa, right ear; I48.2 Chronic atrial fibrillation; B96.20 Unspecified Escherichia coli [E. coli] as the cause of diseases classified elsewhere; D64.9 Anemia, unspecified; E55.9 Vitamin D deficiency, unspecified; E78.5 Hyperlipidemia, unspecified; E87.5 Hyperkalemia; E87.6 Hypokalemia; H60.90 Unspecified otitis externa, unspecified ear; H61.23 Impacted cerumen, bilateral; I07.1 Rheumatic tricuspid insufficiency; I87.8 Other specified disorders of veins; M19.90 Unspecified osteoarthritis, unspecified site; M81.0 Age-related osteoporosis without current pathological fracture; N28.1 Cyst of kidney, acquired; R09.02 Hypoxemia; L89.222 Pressure ulcer of left hip, stage 2; Z74.01 Bed confinement status; Z79.01 Long term (current) use of anticoagulants; Z79.82 Long term (current) use of aspirin; Z86.19 Personal history of other infectious and parasitic diseases; Z87.440 Personal history of urinary (tract) infections; Z87.442 Personal history of urinary calculi; Z95.5 Presence of coronary angioplasty implant and graft; R26.9 Unspecified abnormalities of gait and mobility; F03.90 Unspecified dementia, unspecified severity, without behavioral disturbance, psychotic disturbance, mood disturbance, and anxiety; Z87.81 Personal history of (healed) traumatic fracture; Z86.73 Personal history of transient ischemic attack (TIA), and cerebral infarction without residual deficits; R73.03 Prediabetes

== ENCOUNTER 2018-09-09 15:24 | Inpatient (IN) | payer MEDICARE ==
[2018-09-09 15:25] VITALS: BMI 28.8
--- NOTE | 2018-09-09 15:53 | ED PDOC ---
Arrival/HPI - General Chief Complaint: Weakness/Neurological Deficit Time Seen by Provider: 09/09/18 15:31 Historian: Patient - History of Present Illness Narrative History of Present Illness (Text): 09/09/18 15:49 83 year old female, on coumadin, whose past medical history includes Afib, hypertension, hyperlipidemia, and CAD (w/stents) presents to the emergency department complaining of chest pain. Patient describes the pain as a heaviness on her chest that is intermittent. She reports secondary weakness and loss of appetite. Patient denies fevers, chills, headache, dizziness, shortness of breath, dyspnea on exertion, cough, abdominal pain, nausea, vomiting, diarrhea, back pain, neck pain, or any other complaint. Symptom Onset: Gradual Symptom Course: Unchanged Activities at Onset: Light Context: Home Past Medical History - Provider Review Nursing Documentation Reviewed: Yes - Past History Past History: No Previous - Infectious Disease Hx of Infectious Diseases: None - Cardiac Hx Atrial Fibrillation: Yes Hx Congestive Heart Failure: Yes Hx Hypertension: Yes Hx Pacemaker: No - Pulmonary Hx Pneumonia: Yes - Neurological Hx Neurological Disorder: Yes Hx Dementia: Yes Hx Dizziness: Yes - HEENT Other/Comment: Hard of hearing - Renal Hx Renal Disorder: Yes Hx Kidney Stones: Yes - Endocrine/Metabolic Hx Diabetes Mellitus Type 1: No Hx Diabetes Mellitus Type 2: No Hx Hypothyroidism: No - Hematological/Oncological Hx Cancer: No - Integumentary Hx Dermatological Disorder: Yes - Musculoskeletal/Rheumatological Hx Arthritis: Yes - Gastrointestinal Hx Gastrointestinal Disorders: No - Genitourinary/Gynecological Hx Genitourinary Disorders: Yes Hx Incontinence: Yes Hx Urinary Tract Infection: Yes - Psychiatric Hx Psychophysiologic Disorder: No Hx Emotional Abuse: No Hx Physical Abuse: No Hx Substance Use: No - Surgical History Hx Mastectomy: No - Anesthesia Hx Anesthesia Reactions: No Hx Malignant Hyperthermia: No - Suicidal Assessment Feels Threatened In Home Enviroment: No Family/Social History - Physician Review Nursing Documentation Reviewed: Yes Family/Social History: No Known Family HX Smoking Status: Never Smoked Hx Alcohol Use: No Hx Substance Use: No Hx Substance Use Treatment: No Allergies/Home Meds Allergies/Adverse Reactions: Allergies No Known Allergies Allergy (Verified 11/10/17 18:22) Review of Systems - Physician Review All systems were reviewed & negative as marked: Yes - Review of Systems Constitutional: absent: Fevers Respiratory: absent: SOB, Cough Cardiovascular: Chest Pain (heaviness on the chest) Gastrointestinal: absent: Abdominal Pain, Diarrhea, Nausea, Vomiting Genitourinary Female: absent: Dysuria, Frequency Musculoskeletal: absent: Back Pain, Neck Pain Neurological: absent: Headache, Dizziness Physical Exam Vital Signs Reviewed: Yes Temperature: Afebrile Blood Pressure: Normal Pulse: Regular Respiratory Rate: Normal Appearance: Positive for: Well-Appearing, Non-Toxic, Comfortable Pain Distress: None Mental Status: Positive for: Alert and Oriented X 3 - Systems Exam Head: Present: Atraumatic, Normocephalic Pupils: Present: PERRL Extroacular Muscles: Present: EOMI Conjunctiva: Present: Normal Mouth: Present: Moist Mucous Membranes Neck: Present: Normal Range of Motion Respiratory/Chest: Present: Clear to Auscultation, Good Air Exchange. No: Respiratory Distress, Accessory Muscle Use Cardiovascular: Present: Regular Rate and Rhythm, Normal S1, S2. No: Murmurs Abdomen: No: Tenderness, Distention, Peritoneal Signs Back: Present: Normal Inspection Upper Extremity: Present: Normal Inspection. No: Cyanosis, Edema Lower Extremity: Present: Normal Inspection. No: Edema Neurological: Present: GCS=15, CN II-XII Intact, Speech Normal Skin: Present: Warm, Dry, Normal Color, Pale. No: Rashes Psychiatric: Present: Alert, Oriented x 3, Normal Insight, Normal Concentration Medical Decision Making ED Course and Treatment: 09/09/18 15:55 Impression: 83 year old female who presents to the emergency department complaining of chest pain. Differential Diagnosis included but are not limited to: Chest pain r/o ACS Weakness r/o infection vs. electrolyte abnormality Plan: -- EKG -- Labs -- Chest X-ray -- Urine [place] -- Urinalysis -- Reassess and disposition Prior Visits: Notes and results from previous visits were reviewed. Progress Notes: 09/09/2018 16:12 Chest X-ray IMPRESSION: No active disease. Dictator: Jose Garrett MD 09/09/18 18:01 Patients INR is elevated over 8. Patient is on coumadin. Case was discussed with PRERNA Mueller, and we agree to give Vitamin K 5mg IV. There is no active bleeding at this time. Patient improved with Zofran. - Lab Interpretations I have reviewed the lab results: Yes - RAD Interpretation Radiology Orders: 09/09/18 15:45 CHEST PORTABLE [RAD] Stat - EKG Interpretation Interpreted by ED Physician: Yes Type: 12 lead EKG - Scribe Statement The provider has reviewed the documentation as recorded by the Pedroibtierra Slater Provider Scribe Attestation: All medical record entries made by the Scribe were at my direction and personally dictated by me. I have reviewed the chart and agree that the record accurately reflects my personal performance of the history, physical exam, medical decision making, and the department course for this patient. I have also personally directed, reviewed, and agree with the discharge instructions and disposition. Disposition/Present on Arrival - Present on Arrival Any Indicators Present on Arrival: No History of DVT/PE: No History of Uncontrolled Diabetes: No Urinary Catheter: No History of Decub. Ulcer: No History Surgical Site Infection Following: None - Disposition Have Diagnosis and Disposition been Completed?: Yes Diagnosis: Chest pain, Elevated INR Disposition: HOSPITALIZED Disposition Time: 17:00 Patient Plan: Admission Condition: GUARDED Discharge Instructions (ExitCare): Chest Pain (ED) Referrals: Shaniqua Storm MD [Primary Care Provider] - Follow up with primary Forms: [employer] (Telugu)
--- NOTE | 2018-09-09 15:58 | CP.PCM.HP ---
History of Present Illness - History of Present Illness History of Present Illness: Patient is an 83 Hard of Hearing Female with a past medical history atrial fibrillation on anticoagulation, hypertension, hyperlipidemia, CAD s/p stent, Arthritis, [place] [facility] [place] w/ c/o chest pain was discharged and is now presenting [place] [facility] [place] the same complaints with associated dizziness, lack of appetite and generalized weakness. Patient states this all began about 3 days ago, about a one to two days gap between when she was last discharged home. Patient denies abdominal pain, vomiting, headache, cough, dysuria, fevers, chills. PMHx: Afib, HTN, HLD, CAD s/p stents All: Denies PSH: cystoscopy w/ stent. L ankle ORIF SH: Denies ever smoking. occasional ETOH FH: noncontributory Present on Admission - Present on Admission Any Indicators Present on Admission: No Review of Systems - Review of Systems All systems: reviewed and no additional remarkable complaints except (what is mentioned in HPI) Past Patient History - Infectious Disease Hx of Infectious Diseases: None - Past Social History Smoking Status: Never Smoked - CARDIAC Hx Atrial Fibrillation: Yes Hx Congestive Heart Failure: Yes Hx Hypertension: Yes Hx Pacemaker: No - PULMONARY Hx Pneumonia: Yes - NEUROLOGICAL Hx Neurological Disorder: Yes Hx Dementia: Yes Hx Dizziness: Yes - HEENT Other/Comment: Hard of hearing - RENAL Hx Chronic Kidney Disease: Yes Hx Kidney Stones: Yes - ENDOCRINE/METABOLIC Hx Diabetes Mellitus Type 1: No Hx Diabetes Mellitus Type 2: No Hx Hypothyroidism: No - HEMATOLOGICAL/ONCOLOGICAL Hx Cancer: No - INTEGUMENTARY Hx Dermatological Problems: Yes - MUSCULOSKELETAL/RHEUMATOLOGICAL Hx Arthritis: Yes - GASTROINTESTINAL Hx Gastrointestinal Disorders: No - GENITOURINARY/GYNECOLOGICAL Hx Genitourinary Disorders: Yes Hx Incontinence: Yes Hx Urinary Tract Infection: Yes - PSYCHIATRIC Hx Psychophysiologic Disorder: No Hx Emotional Abuse: No Hx Physical Abuse: No Hx Substance Use: No - SURGICAL HISTORY Hx Mastectomy: No - ANESTHESIA Hx Anesthesia Reactions: No Hx Malignant Hyperthermia: No Meds Home Medications: Home Medication List Medication Instructions Recorded Confirmed Type Cefpodoxime [Vantin] 200 mg PO BID #14 tab 09/11/18 Rx Warfarin [Coumadin] 1 mg PO 1800 #15 tab 09/11/18 Rx Allergies/Adverse Reactions: Allergies Allergy/AdvReac Type Severity Reaction Status Date / Time No Known Allergies Allergy Verified 11/10/17 18:22 Physical Exam - Head Exam Head Exam: ATRAUMATIC, NORMAL INSPECTION, NORMOCEPHALIC - Eye Exam Eye Exam: EOMI - ENT Exam ENT Exam: Mucous Membranes Moist - Respiratory Exam Respiratory Exam: Clear to Auscultation Bilateral. absent: Rhonchi, Wheezes - Cardiovascular Exam Cardiovascular Exam: Irregular Rhythm, +S1, +S2 - GI/Abdominal Exam GI & Abdominal Exam: Normal Bowel Sounds - Extremities Exam Extremities exam: Positive for: pedal edema - Neurological Exam Neurological exam: Alert, CN II-XII Intact, Oriented x3 - Expanded Neurological Exam Expanded Speech: Fluid Speech Cranial nerves: EOM's Intact: Normal, Tongue Deviation: Normal Upper motor neuron: Pronator Drift: Normal, Sensory Extinction: Normal Neuro motor strength exam: Left Upper Extremity: 4 (improved since last admission), Right Upper Extremity: 4 (improved since last admission), Left Lower Extremity: 4 (improved since last admission), Right Lower Extremity: 4 (improved since last admission) - Psychiatric Exam Psychiatric exam: Normal Affect, Normal Mood - Skin Skin Exam: Normal Color, Warm Results - Labs Result Diagrams: 09/11/18 09:00 09/11/18 09:40 Assessment & Plan - Assessment and Plan (Free Text) Assessment: Patient is an 83 Hard of Hearing Female with a past medical history atrial fibrillation on anticoagulation, hypertension, hyperlipidemia, CAD s/p stent, Arthritis, presented [place] [facility] [place] w/ c/o chest pain was discharged and is now presenting [place] [facility] [place] the same complaints with associated dizziness, lack of appetite and generalized weakness. Plan: Chest pain R/O ACS -Troponin x 1 negative; continue to trend -EKG shows atrial fibrillation, continue with series EKGs -Cardiology Consulted; recommendations appreciated Atrial fibrillation -Warfarin on hold due to INR >8 -Continue with lopressor for rate control Hypertension -Continue with lopressor, losartan Hyperlipidemia -Continue with lipitor CAD s/p stent -Continue with aspirin Dementia -Continue with aricept Arthritis -Continue with tylenol GI/DVT prophylaxis: Protonix/Mechanical
--- NOTE | 2018-09-09 16:16 | RAD ---
Date of service: 09/09/2018 HISTORY: chest pressure COMPARISON: 08/27/2018 FINDINGS: LUNGS: No active pulmonary disease. PLEURA: No significant pleural effusion identified, no pneumothorax apparent. CARDIOVASCULAR: Aortic calcification Mild cardiomegaly no pulmonary vascular congestion. OSSEOUS STRUCTURES: No significant abnormalities. VISUALIZED UPPER ABDOMEN: Normal. OTHER FINDINGS: None. IMPRESSION: No active disease.
[2018-09-09 16:20] LABS: BASO # 0.01 K/mm3 (0.0-2.0); BASO % 0.1 % (0.0-3.0); EOS % 0.2 % (1.5-5.0); GRAN # 8.37 (1.4-6.5); GRAN % 64.6 % (50.0-68.0); HEMOGLOBIN 15.3 g/dL (12.0-16.0); LYMPH # 3.3 (1.2-3.4); LYMPH % 25.5 % (22.0-35.0); MEAN CELL VOLUME 90.2 fl (80.0-105.0); MEAN CORPUSCULAR HEMOGLOBIN 30.7 pg (25.0-35.0); MEAN CORPUSCULAR HGB CONC 34.1 g/dl (31.0-37.0); MONO # 1.2 (0.1-0.6); MONO % 9.6 % (1.0-6.0); RBC 4.98 10^6/uL (3.5-6.1); RED CELL DISTRIBUTION WIDTH 15.5 % (11.5-14.5)
[2018-09-09 16:32] LABS: ALB/GLOB RATIO 1.1 (1.1-1.8); ALBUMIN 4.6 g/dL (3.0-4.8); ALT/SGPT 32 U/L (7-56); AST/SGOT 37 U/L (14-36); BLOOD UREA NITROGEN 24 mg/dL (7-21); CALCIUM 10.8 mg/dL (8.4-10.5); GFR NON-AFRICAN AMERICAN 60
[2018-09-09 16:33] LABS: PARTIAL THROMBOPLASTIN TIME 74.8 Seconds (26.9-38.3)
[2018-09-09] MEDS ORDERED: Haloperidol Lactate 2 mg/ml Liquid PO PRN (16:36)
[2018-09-09 16:39] LABS: PROTHROMBIN TIME 96.3 SECONDS (9.4-12.5)
[2018-09-09 16:40] LABS: INR 8.68
[2018-09-09 16:41] LABS: TROPONIN I < 0.01 ng/mL
[2018-09-09] MEDS ORDERED: Ergocalciferol 50,000 Intl Units Cap PO SCH (16:45)
[2018-09-09] MEDS ORDERED: Phytonadione 5 MG in Sodium Chloride 0.9% 50 ML IV ONE (18:01)
[2018-09-09] MEDS: Levalbuterol 0.63 MG/3 ML Inhal Soln UD IH SCH (23:37)
--- NOTE | 2018-09-10 00:29 | CARD ---
APPROVED REPORT Date of service: 09/09/2018 EKG Measurement Heart [id number] <Conclusion> Atrial fibrillation Anteroseptal infarct, age undetermined NDSTT abnormalities Abnormal ECG
[2018-09-10] MEDS: Levalbuterol 0.63 MG/3 ML Inhal Soln UD IH SCH ×5 (02:02→20:55)
[2018-09-10] MEDS: Pantoprazole 40 mg EC Tab PO SCH (05:41)
[2018-09-10 06:10] LABS: URINE BILIRUBIN NEGATIVE (NEGATIVE); URINE BLOOD NEGATIVE (NEGATIVE); URINE GLUCOSE (UA) NEGATIVE (NEGATIVE); URINE LEUKOCYTE ESTERASE MODERATE Leu/uL (NEGATIVE); URINE PROTEIN NEGATIVE mg/dL (<30 mg/dL); URINE UROBILINOGEN 0.2 E.U./dL (<1 E.U./dL)
[2018-09-10 06:16] LABS: URINE APPEARANCE SL CLOUDY (CLEAR); URINE COLOR YELLOW (YELLOW)
[2018-09-10 06:29] LABS: URINE RBC 0 - 2 /hpf (0-2)
[2018-09-10 06:30] LABS: URINE BACTERIA TRACE /hpf
[2018-09-10 07:15] LABS: BASO # 0.03 K/mm3 (0.0-2.0); BASO % 0.2 % (0.0-3.0); EOS # 0.1 (0.0-0.7); EOS % 0.7 % (1.5-5.0); GRAN # 8.48 (1.4-6.5); GRAN % 64.9 % (50.0-68.0); HEMOGLOBIN 14.6 g/dL (12.0-16.0); LYMPH # 3.2 (1.2-3.4); LYMPH % 24.6 % (22.0-35.0); MEAN CELL VOLUME 89.5 fl (80.0-105.0); MEAN CORPUSCULAR HEMOGLOBIN 29.9 pg (25.0-35.0); MEAN CORPUSCULAR HGB CONC 33.4 g/dl (31.0-37.0); MEAN PLATELET VOLUME 10.4 fl (7.0-11.0); MONO # 1.3 (0.1-0.6); MONO % 9.6 % (1.0-6.0); RBC 4.88 10^6/uL (3.5-6.1); RED CELL DISTRIBUTION WIDTH 15.4 % (11.5-14.5); WHITE BLOOD COUNT 13.1 10^3/uL (4.5-11.0)
[2018-09-10 07:27] LABS: INR 1.53; PARTIAL THROMBOPLASTIN TIME 23.7 Seconds (26.9-38.3); PROTHROMBIN TIME 17.3 SECONDS (9.4-12.5)
[2018-09-10 07:40] LABS: ALB/GLOB RATIO 1.2 (1.1-1.8); ALBUMIN 4.1 g/dL (3.0-4.8); ALT/SGPT 31 U/L (7-56); AST/SGOT 35 U/L (14-36); BILIRUBIN,DIRECT 0.3 mg/dL (0.0-0.4); BLOOD UREA NITROGEN 34 mg/dL (7-21); GFR NON-AFRICAN AMERICAN 53
--- NOTE | 2018-09-10 08:23 | HP ---
DATE OF EXAM: 09/09/2018 ADDENDUM The patient is an 83-year-old homebound patient who was recently discharged by me about a week or 10 days ago who comes to the emergency room, the patient was supposed to be seen on the house call by me. The patient's daughter called today to the office and informed that the patient developed weakness, chest pain, poor appetite, and chest heaviness and the patient's family and the called 911 [facility] and the patient was sent to the emergency room for evaluation. The patient was seen in the stretcher #18 in the emergency room. The patient's at the bedside. The patient is lying in the bed. The patient's vital signs, diagnostic data, all reviews, please refer to the history and physical examination by the medical technicians for complete detailed history. The patient's blood pressure is 147/75, heart rate is 73, and O2 sat is 99%. The patient is seen in the emergency room bed 18. The patient's is at the bedside. IMPRESSION AND PLAN: 1. Weakness. 2. Chest heaviness and chest pain. 3. Questionable angina. 4. Anorexia and poor appetite. 5. History of dementia. 6. History of noncompliance. 7. Gait dysfunction. 8. Right-sided diastolic congestive heart failure. 9. Atrial fibrillation. 10. Multilobar bilateral community-acquired pneumonia. 11. Coumadin-dependent atrial fibrillation. 12. Deconditioning. 13. Early dementia and delirium. 14. History of Escherichia coli urinary tract infection. 15. Microvascular ischemic disease of the brain. 16. Acute reactive otitis externa and bilateral cerumen impaction. 17. Hearing deficit. 18. Bilateral lower extremity venous stasis secondary to right-sided diastolic congestive heart failure. 19. Cerebral cortical atrophy of the brain. 20. Inferior coronary ischemia. 21. Encephalopathy. 22. History of behavioral disorder with episodic agitation, confusion and noncompliance. 23. Osteoarthritis of the left foot and ankle. 24. History of old healed left ankle trimalleolar fracture, history of hypokalemia and hyperkalemia. 25. Hypomagnesemia. 26. Acute exacerbation of diastolic right-sided congestive heart failure. 27. Bilateral nonobstructing nephrolithiasis with mild hydroureter. 28. History of constipation. 29. History of hypertension. 30. Hypovitaminosis D. 31. Hypokalemia and hyperkalemia. Plan at this time, the patient has been seen by me and the medical technicians in bed #18. The patient's EKG shows atrial fibrillation. Chest x-ray shows cardiomegaly, no CHF. PTT is 75. The patient's chemistries available. CBC is pending. Cardiac enzymes, CMP, and magnesium is pending. EKG was done. At present, we are awaiting for further diagnostic data. The patient will most likely be admitted for evaluation of chest pain. Cardiac steel, the patient is admitted. The patient will be requested by Cardiology for evaluation. At present, if the patient is admitted, the patient will be resumed on home medications including Aricept 5 mg at bedtime, Colace 100 mg three times a day, Coumadin 2.5 mg daily if the INR is therapeutic, Cozaar 50 mg daily, Drisdol 50,000 weekly, Ecotrin 81 mg daily, K-Dur 20 mEq daily, Lasix 40 mg daily, Lipitor 40 mg daily, metoprolol 25 twice a day, Protonix 40 daily, Tylenol p.r.n., Xopenex nebulizer 0.63 every 6 hours, and Zofran 4 mg IV every 4 hours p.r.n. At present, the patient is awaiting for further diagnostic data to be available to us. Please refer to the detailed history and physical examination by the medical technicians for further details. Dictated and electronically signed, not read. Santos Sultana MD
[2018-09-10] MEDS: Potassium Chloride 20 mEq ER Tab PO SCH (10:23)
[2018-09-10] MEDS: Magnesium Sulfate 2 gm/50 ml 2 GM/50 ML BAG IVPB SCH ×2 (10:26→13:55)
[2018-09-10 12:08] VITALS: RESP 18
--- NOTE | 2018-09-10 15:08 | CP.PCM.APN ---
Objective - Vital Signs/Intake and Output Vital Signs (last 24 hours): Temp Pulse Resp BP Pulse Ox 97.8 F 43 L 18 146/77 97 09/10/18 12:00 09/10/18 12:00 09/10/18 12:00 09/10/18 12:00 09/10/18 00:01 Intake and Output: 09/10/18 09/10/18 06:59 18:59 Intake Total 240 Output Total 850 Balance -610 - Medications Medications: Current Medications Acetaminophen (Tylenol 325mg Tab) 650 mg PO Q6 PRN PRN Reason: TEMP>=99.5F Last Admin: 09/09/18 23:05 Dose: 650 mg Acetaminophen (Tylenol 650 Mg Supp) 650 mg RC Q6H PRN PRN Reason: TEMP>=99.5F Aspirin (Ecotrin) 81 mg PO DAILY [facility] Last Admin: 09/10/18 10:23 Dose: 81 mg Atorvastatin Calcium (Lipitor) 40 mg PO DIN [facility] Last Admin: 09/09/18 20:06 Dose: 40 mg Diphenhydramine HCl (Benadryl) 25 mg PO HS PRN PRN Reason: Insomnia Docusate Sodium (Colace) 100 mg PO TID [facility] Last Admin: 09/10/18 13:55 Dose: 100 mg Donepezil HCl (Aricept) 5 mg PO HS [facility] Last Admin: 09/09/18 23:05 Dose: 5 mg Ergocalciferol (Drisdol 50,000 Intl Units Cap) 1 cap PO Q7D [facility] Last Admin: 09/09/18 20:06 Dose: 1 cap Furosemide (Lasix) 40 mg PO DAILY [facility] Last Admin: 09/10/18 10:23 Dose: 40 mg Haloperidol Lactate (Haldol) 0.25 mg PO Q8 PRN; Protocol PRN Reason: Agitation Last Admin: 09/10/18 01:56 Dose: 0.25 mg Levalbuterol HCl (Xopenex) 0.63 mg IH [id number] [facility] Last Admin: 09/10/18 13:40 Dose: Not Given Losartan Potassium (Cozaar) 50 mg PO DAILY [facility] Last Admin: 09/10/18 10:23 Dose: 50 mg Metoprolol Tartrate (Lopressor) 25 mg PO BID [facility] Last Admin: 09/10/18 10:23 Dose: 25 mg Ondansetron HCl (Zofran Inj) 4 mg IVP Q4H PRN PRN Reason: Nausea/Vomiting Last Admin: 09/10/18 06:21 Dose: 4 mg Pantoprazole Sodium (Protonix Ec Tab) 40 mg PO 0600 [facility] Last Admin: 09/10/18 05:41 Dose: 40 mg Potassium Chloride (K-Dur 20 Meq Er Tab) 20 meq PO DAILY [facility] Last Admin: 09/10/18 10:23 Dose: 20 meq Warfarin Sodium (Coumadin) 1 mg PO 1800 [facility]; Protocol - Labs Labs: 09/10/18 07:00 09/10/18 07:00 PT 17.3 SECONDS (9.4-12.5) H 09/10/18 07:00 INR 1.53 09/10/18 07:00 APTT 23.7 Seconds (26.9-38.3) L 09/10/18 07:00
--- NOTE | 2018-09-10 20:28 | PN ---
DATE: 09/10/2018 SUBJECTIVE: The patient is seen lying in the bed in 277, bed 1. The patient was seen. The patient was found to be alert, awake, responsive. The patient had episodes of nausea for which the patient received Zofran with positive relief. The patient complained of some chest heaviness and nausea which resolved. The patient was ordered to the nurse that the patient needs to be out of bed to chair. PHYSICAL EXAMINATION VITAL SIGNS: Telemetry shows atrial fibrillation. T-max is 97.8. Telemetry shows atrial fibrillation, heart rate low 100s to high 80s. Blood pressure 134/59, 146/77, 163/86, 136/83, respiration 18, O2 sat is 95-98%. HEENT: Head is normocephalic, atraumatic. HEENT examination shows pink conjunctivae. Anicteric sclerae. No oropharyngeal lesion. NECK: No neck rigidity. CHEST: Kyphosis. CARDIOPULMONARY: S1, S2, irregular rhythm. Positive systolic murmur at the left sternal border, right second intercostal space, left second intercostal space. LUNGS: Shows no audible crackle, rales or wheezing. ABDOMEN: Soft. Positive bowel sound. GENITALIA: Female. RECTAL: Deferred. EXTREMITIES: Shows no pitting edema. No calf tenderness. No Krystin's signs. MUSCULOSKELETAL: Shows a body mass index of 26. NEUROLOGIC: The patient is alert, awake, responsive, hard of hearing. Gait examination is not tested. DIAGNOSTICS: On 09/10/2018, WBC 13.1, platelet 235, hemoglobin and hematocrit 14.6 and 43.7. PT is down to 17.3 and 23.7 from 96.3 to 74.8 with INR of 8.68. Today's INR is 1.5. Sodium 135, potassium 4.3, chloride 101, CO2 of 25, anion gap 14, BUN 34, creatinine 1.0, GFR greater than 60, glucose 103, calcium 10.0, phosphorus 3.9, magnesium 1.3. LFTs are normal. Urinalysis was reviewed. IMPRESSION: 1. Atypical chest pain with weakness and chest heaviness. 2. Anorexia with poor appetite. 3. Iatrogenic coagulopathy. 4. Atrial fibrillation. 5. Hypertension. 6. Hearing deficit. 7. Early dementia. 8. Leukocytosis. 9. Coumadin-dependent atrial fibrillation. 10. Prerenal kidney injury. 11. Hypomagnesemia. 12. Pyuria and bacteriuria. 13. Aortic calcification with mild cardiomegaly. 14. Atrial fibrillation with age-indeterminate anteroseptal infarct. 15. Insomnia. 16. Constipation. 17. Hypovitaminosis D. 18. Congestive heart failure. 19. Hyperlipidemia. 20. History of leukocytosis. 21. Gait dysfunction. 22. Deconditioning. 23. History of noncompliance and poor compliance. PLAN: At this time, the patient has been ordered magnesium supplementation, 2 doses of magnesium . Repeat labs have been ordered for the morning. The patient was ordered a urine culture from the emergency room physician. The patient has been referred for TCU evaluation. The patient was seen by the physical therapist. The recommendation was subacute rehab by the physical therapist. Current medications, Aricept 5 mg at bedtime, Benadryl 25 mg at bedtime, p.r.n. Colace 100 mg three times a day, Coumadin 1 mg daily, Cozaar 50 mg daily, Drisdol 50,000 units weekly, Ecotrin 81 mg daily, Haldol 0.25 mg p.o. every 8 hours p.r.n., K-Dur 20 mEq daily, Lasix 40 mg daily, Lipitor 40 mg daily, Lopressor 25 mg twice a day, Protonix 40 mg daily, Tylenol 650 mg p.o. suppository every 6 hours p.r.n. The patient yesterday received a dose of vitamin K 5 mg IV, Xopenex nebulizer 0.63 mg every 6 hours, Zofran 4 mg IV every 4, incentive spirometry. Heart-healthy diet. The patient has been ordered out of bed to chair, SCDs, ANTONIO stockings, physical therapy, occupational therapy. At present, the patient will be continued on the above therapeutic intervention. The patient's cardiac enzymes are negative. EKG does not show any coronary ischemia. The patient's telemetry will be considered for discharge once the third set of troponin and CPK is negative. The patient's family made aware of the patient's physical therapy recommendation of subacute rehab if the patient and the family's agrees. Dictated and electronically signed, not read. Santos MD [facility] # [id number]
[2018-09-11] MEDS: Levalbuterol 0.63 MG/3 ML Inhal Soln UD IH SCH ×3 (03:38→13:34)
[2018-09-11] MEDS: Pantoprazole 40 mg EC Tab PO SCH (05:46)
--- NOTE | 2018-09-11 08:57 | DS ---
FINAL PROGRESS NOTE AND DISCHARGE SUMMARY DATE: 09/11/2018 SUBJECTIVE: The patient is in room 277, bed 1. Overnight nurse's notes were reviewed. No adverse events documented, reported or notified. OBJECTIVE: VITAL SIGNS: Telemetry shows atrial fibrillation with intermittent episodes of normal sinus rhythm. T-max 98.2, heart rate 72, blood pressure 140/81, respirations 18, O2 sat 97%. HEENT: Head is normocephalic, atraumatic. Eyes; shows pinkish conjunctivae. Anicteric sclerae. No oropharyngeal lesion. Positive hearing deficit noted. NECK: No neck rigidity. No visible jugular venous distention. CARDIOVASCULAR: S1, S2, irregular rhythm. Positive systolic murmur, left sternal border, right second intercostal space, left second intercostal space.Positive palpable and reproducible chest wall, sternal and rib tenderness. ABDOMEN: Soft. Positive bowel sounds. No palpable hepatosplenomegaly. No guarding. No rigidity, no rebound tenderness. GENITALIA: Female. RECTAL: Deferred. EXTREMITIES: Shows no pitting edema, no calf tenderness, no Krystin's signs. Positive ANTONIO stocking noted. MUSCULOSKELETAL: As per body mass index. The patient is able to move upper and lower extremities without assistance. Gait examination is not tested. DIAGNOSTICS: Since admission till yesterday all reviewed. The 09/11/2018 is still pending despite ordered at 05:00 a.m. this morning. FINAL IMPRESSION AND PLAN AND DISCHARGE DIAGNOSES: 1. Chest pain, etiology undetermined. 2. Iatrogenic coagulopathy with elevated PT/INR and PTT. 3. Questionable early dementia. 4. Hearing deficit. 5. Right-sided diastolic congestive heart failure. 6. Atrial fibrillation. 7. Status post supratherapeutic INR and anticoagulation. 8. History of poor compliance and noncompliance. 9. Hypertension. 10. Hyperlipidemia. 11. Hypovitaminosis D. 12. Gait dysfunction. PLAN: At this time, we will review the diagnostic labs, which has been ordered for today when available. The patient has been ordered out of bed to chair, physical therapy, occupational therapy, ambulation therapy. Next, the patient's medications will be continued as per the MAR of today which was reviewed. The patient will be ordered out of bed to chair, which has already been ordered. If the patient's today's labs are within normal limit and the patient's INR is within acceptable range, the patient has already been started on low-dose Coumadin 1 mg daily because the patient was discharged on 2.5 mg of Coumadin daily, but the patient's INR went up to 9. Due to the patient being a high risk for anticoagulation because of the non compliance issue, the patient will be only given Coumadin 1 mg daily. Because 2.5 mg Coumadin daily raise INR to supratherapeutic level. The patient will be continued on Lasix 40 daily, K-Dur 20 daily, Aricept 5 mg daily. The patient will be continued on GI, DVT prophylaxis. The patient will be considered for TCU if accepted, otherwise the patient will be considered for discharge to subacute rehab if the patient and the family agrees, otherwise the patient will be discharged back home with visiting nurse, Home Health aid, home PT, etc. DISCHARGE MEDICATIONS PER UPDATED AMBULATORY ORDERS. Dictated and electronically signed, not read. Santos Sultana MD [facility]
[2018-09-11 09:32] LABS: BASO # 0.02 K/mm3 (0.0-2.0); BASO % 0.2 % (0.0-3.0); EOS # 0.3 (0.0-0.7); EOS % 2.5 % (1.5-5.0); HEMOGLOBIN 14.8 g/dL (12.0-16.0); LYMPH # 2.5 (1.2-3.4); LYMPH % 21.6 % (22.0-35.0); MEAN CELL VOLUME 91.7 fl (80.0-105.0); MEAN CORPUSCULAR HEMOGLOBIN 29.9 pg (25.0-35.0); MEAN CORPUSCULAR HGB CONC 32.6 g/dl (31.0-37.0); MEAN PLATELET VOLUME 11.2 fl (7.0-11.0); MONO # 0.6 (0.1-0.6); MONO % 5.5 % (1.0-6.0); RBC 4.95 10^6/uL (3.5-6.1); RED CELL DISTRIBUTION WIDTH 15.7 % (11.5-14.5); WHITE BLOOD COUNT 11.3 10^3/uL (4.5-11.0)
[2018-09-11] MEDS: Potassium Chloride 20 mEq ER Tab PO SCH (09:57)
[2018-09-11 10:34] LABS: ALB/GLOB RATIO 1.2 (1.1-1.8); ALBUMIN 3.8 g/dL (3.0-4.8); ALT/SGPT 23 U/L (7-56); AST/SGOT 29 U/L (14-36); BILIRUBIN,DIRECT 0.2 mg/dL (0.0-0.4); BLOOD UREA NITROGEN 30 mg/dL (7-21); CALCIUM 9.7 mg/dL (8.4-10.5); GFR NON-AFRICAN AMERICAN 60
[2018-09-11 10:35] LABS: TROPONIN I < 0.01 ng/mL
[2018-09-11 10:40] LABS: INR 1.19; PARTIAL THROMBOPLASTIN TIME 28.9 Seconds (26.9-38.3); PROTHROMBIN TIME 13.4 SECONDS (9.4-12.5)
[2018-09-11 16:51] VITALS: BP 137/60; PULSE 76; TEMP 98.4; O2SAT 96
== END 2018-09-11 19:17 | disposition home or self-care (01) | DRG 313 ==
LOC: ED 15:24 → ERH 18:13 → 2RSO 21:50
PROVIDERS: ADMIT Internal Medicine; ATTEND Internal Medicine
DX: R07.89 Other chest pain (principal); I50.33 Acute on chronic diastolic (congestive) heart failure; I11.0 Hypertensive heart disease with heart failure; I48.91 Unspecified atrial fibrillation; I25.10 Atherosclerotic heart disease of native coronary artery without angina pectoris; F03.90 Unspecified dementia, unspecified severity, without behavioral disturbance, psychotic disturbance, mood disturbance, and anxiety; E78.5 Hyperlipidemia, unspecified; E83.42 Hypomagnesemia; H61.23 Impacted cerumen, bilateral; H60.90 Unspecified otitis externa, unspecified ear; I87.8 Other specified disorders of veins; R79.1 Abnormal coagulation profile; R53.1 Weakness; M19.072 Primary osteoarthritis, left ankle and foot; E55.9 Vitamin D deficiency, unspecified; K59.00 Constipation, unspecified; R63.0 Anorexia; R26.9 Unspecified abnormalities of gait and mobility; Z79.01 Long term (current) use of anticoagulants; Z95.5 Presence of coronary angioplasty implant and graft; Z91.19 Patient's noncompliance with other medical treatment and regimen

== ENCOUNTER 2018-10-17 14:12 | Observation (INO) | payer MEDICARE ==
[2018-10-17] MEDS ORDERED: Nitroglycerin 2% Ointment Foilpak UD TOP STA (14:23)
--- NOTE | 2018-10-17 14:26 | ED PDOC ---
Arrival/HPI - General Chief Complaint: Chest Pain Time Seen by Provider: 10/17/18 14:17 Historian: Patient, Spouse, EMS - History of Present Illness Time/Duration: Other (this morning) Symptom Onset: Gradual Symptom Course: Improving Quality: Pressure, Tightness Severity Level: Moderate Activities at Onset: Rest Associated Symptoms (Text): 10/17/18 14:24 Patient complains of chest pain described as a pressure along with shortness of breath beginning sometime this morning. Relieved with medics nitroglycerin and aspirin. History of coronary artery disease and multiple stent placement. Last cardiac catheterization was in January 2017. Past Medical History - Past History Past History: No Previous - Infectious Disease Hx of Infectious Diseases: None - Cardiac Hx Atrial Fibrillation: Yes Hx Congestive Heart Failure: Yes Hx Hypertension: Yes Hx Pacemaker: No - Pulmonary Hx Pneumonia: Yes - Neurological Hx Neurological Disorder: Yes Hx Dementia: Yes Hx Dizziness: Yes - HEENT Other/Comment: Hard of hearing - Renal Hx Renal Disorder: Yes Hx Kidney Stones: Yes - Endocrine/Metabolic Hx Diabetes Mellitus Type 1: No Hx Diabetes Mellitus Type 2: No Hx Hypothyroidism: No - Hematological/Oncological Hx Cancer: No - Integumentary Hx Dermatological Disorder: Yes - Musculoskeletal/Rheumatological Hx Arthritis: Yes - Gastrointestinal Hx Gastrointestinal Disorders: No - Genitourinary/Gynecological Hx Genitourinary Disorders: Yes Hx Incontinence: Yes Hx Urinary Tract Infection: Yes - Psychiatric Hx Psychophysiologic Disorder: No Hx Emotional Abuse: No Hx Physical Abuse: No Hx Substance Use: No - Surgical History Hx Mastectomy: No - Anesthesia Hx Anesthesia Reactions: No Hx Malignant Hyperthermia: No - Suicidal Assessment Feels Threatened In Home Enviroment: No Family/Social History - Physician Review Nursing Documentation Reviewed: Yes Family/Social History: Unknown Family HX Smoking Status: Never Smoked Hx Alcohol Use: No Hx Substance Use: No Hx Substance Use Treatment: No Allergies/Home Meds Allergies/Adverse Reactions: Allergies No Known Allergies Allergy (Verified 10/17/18 14:18) Review of Systems - Physician Review All systems were reviewed & negative as marked: Yes - Review of Systems Constitutional: Fatigue. absent: Fevers Respiratory: SOB. absent: Cough, Wheezing Cardiovascular: Chest Pain. absent: Palpitations, Syncope Gastrointestinal: absent: Abdominal Pain, Nausea, Vomiting Neurological: absent: Headache, Dizziness, Focal Weakness Physical Exam Temperature: Afebrile Blood Pressure: Normal Pulse: Regular Respiratory Rate: Normal Appearance: Positive for: Well-Appearing, Non-Toxic, Uncomfortable, Other (Pale) Pain Distress: None Mental Status: Positive for: Alert and Oriented X 3 - Systems Exam Head: Present: Atraumatic, Normocephalic Pupils: Present: PERRL Extroacular Muscles: Present: EOMI Conjunctiva: Present: Normal Mouth: Present: Moist Mucous Membranes Pharnyx: No: ERYTHEMA, EXUDATE, TONSILS ENLARGED Neck: Present: Normal Range of Motion Respiratory/Chest: Present: Clear to Auscultation, Good Air Exchange, Decreased Breath Sounds. No: Respiratory Distress, Accessory Muscle Use Cardiovascular: Present: Normal S1, S2, Irregular Rhythm. No: Murmurs Abdomen: No: Tenderness, Distention, Peritoneal Signs, Rebound, Guarding Back: Present: Normal Inspection Upper Extremity: Present: Normal Inspection. No: Cyanosis, Edema Lower Extremity: Present: Normal Inspection. No: Edema Neurological: Present: GCS=15, CN II-XII Intact, Speech Normal, Motor Func Grossly Intact Skin: Present: Warm, Dry, Normal Color. No: Rashes Psychiatric: Present: Alert, Oriented x 3, Normal Insight, Normal Concentration Medical Decision Making ED Course and Treatment: 10/17/18 14:26 EKG shows atrial fibrillation rate approximately 95 with frequent multifocal PVCs poor R waves and nonspecific ST and T wave changes. 10/17/18 16:17 Discussed with , who will place on telemetry observation on 's service and consult with cardiology . - RAD Interpretation Radiology Orders: 10/17/18 14:23 CHEST PORTABLE [RAD] Stat Chest one view shows no infiltrate effusion or cardiomegaly. Patient Resource Coordinator: ED Physician Disposition/Present on Arrival - Present on Arrival Any Indicators Present on Arrival: No History of DVT/PE: No History of Uncontrolled Diabetes: No Urinary Catheter: No History of Decub. Ulcer: No History Surgical Site Infection Following: None - Disposition Have Diagnosis and Disposition been Completed?: Yes Diagnosis: Atrial fibrillation, Chest pain Disposition: HOSPITALIZED Disposition Time: 16:18 Patient Plan: Observation, Telemetry Condition: GOOD Discharge Instructions (ExitCare): Chest Pain (ED) Forms: [employer] ([place]ian)
[2018-10-17 14:51] LABS: BASO # 0.02 {null, K/mm3} (0.0-2.0); BASO % 0.2 % (0.0-3.0); EOS # 0.3 (0.0-0.7); EOS % 2.9 % (1.5-5.0); HEMOGLOBIN 14.8 g/dL (12.0-16.0); LYMPH # 3.3 (1.2-3.4); MEAN CELL VOLUME 91.3 fl (80.0-105.0); MEAN CORPUSCULAR HEMOGLOBIN 30.6 pg (25.0-35.0); MEAN CORPUSCULAR HGB CONC 33.6 g/dl (31.0-37.0); MEAN PLATELET VOLUME 11.2 fl (7.0-11.0); MONO # 0.7 (0.1-0.6); MONO % 7.1 % (1.0-6.0); RBC 4.83 {null, 10^6/uL} (3.5-6.1); RED CELL DISTRIBUTION WIDTH 16.5 % (11.5-14.5); WHITE BLOOD COUNT 9.4 {null, 10^3/uL} (4.5-11.0)
--- NOTE | 2018-10-17 15:08 | RAD ---
HISTORY: cp COMPARISON: Chest x-ray performed 09/09/18 TECHNIQUE: Chest, one view. FINDINGS: LUNGS: No focal consolidation. Please note that chest x-ray has limited sensitivity for the detection of pulmonary masses. PLEURA: No significant pleural effusion identified. No definite pneumothorax . CARDIOVASCULAR: Cardiomegaly. Dense atherosclerotic calcifications present. OSSEOUS STRUCTURES: No acute osseous abnormality identified. 3 mm hyperdensity projects over the left 6th posterior rib, presumably external to the patient; correlate for BB marker. VISUALIZED UPPER ABDOMEN: Unremarkable. OTHER FINDINGS: None. IMPRESSION: Cardiomegaly. Atherosclerotic calcifications of the aorta. No focal consolidation. 3 mm hyperdensity projects over the left 6th posterior rib, presumably external to the patient; correlate for BB marker. No appreciable abnormality appreciated at this level.
[2018-10-17 15:29] LABS: INR 2.44; PROTHROMBIN TIME 27.1 SECONDS (9.4-12.5)
[2018-10-17 15:30] LABS: ALB/GLOB RATIO 1.3 (1.1-1.8); ALBUMIN 4.6 g/dL (3.0-4.8); AST/SGOT 33 U/L (14-36); BLOOD UREA NITROGEN 14 mg/dL (7-21); CALCIUM 10.3 mg/dL (8.4-10.5); GFR NON-AFRICAN AMERICAN > 60
[2018-10-17 15:41] LABS: B-TYPE NATRIURETIC PEPTIDE 563 pg/mL (0-450); TROPONIN I < 0.01 ng/mL
[2018-10-17 15:57] LABS: ALT/SGPT < 6 U/L (7-56)
[2018-10-17 17:49] VITALS: BMI 28.1
[2018-10-17] MEDS: Levalbuterol 0.63 MG/3 ML Inhal Soln UD IH SCH (21:09)
[2018-10-17 21:12] VITALS: RESP 20
--- NOTE | 2018-10-17 21:43 | HP ---
DATE OF EXAM: 10/17/2018 HISTORY OF PRESENT ILLNESS: The patient is 83 years old, known to me from multiple previous admissions, came to emergency room because of intermittent chest pain along with shortness of breath. She stated she had some discomfort last night but this morning it got worse and she usually gets nitroglycerine that she took along with aspirin with some relief. She states she has history of coronary artery disease, so she came to emergency room for further evaluation. PAST MEDICAL HISTORY: Significant for; 1. Coronary artery disease status post cardiac cath by Dr. Lopes. 2. Mild dementia. 3. History of congestive heart failure. 4. Chronic AFib. 5. History of postherpetic neuralgia. 6. History of left nephrolithiasis. ALLERGIES: SHE IS NOT ALLERGIC TO ANY MEDICATIONS. MEDICATION AT HOME: She is on aspirin 81 mg daily, she is on Lipitor, Neurontin, Cozaar, and Protonix. SOCIAL HISTORY: She lives with her . Denies smoking or drinking. PHYSICAL EXAMINATION: GENERAL: She seems to be comfortable. No nausea or vomiting or diarrhea. Chest pain has almost gone. VITAL SIGNS: She is afebrile, pulse 76, respiration 20, and blood pressure 145/89. LUNGS: Bilateral good airflow. No rhonchi or crackle. HEART: S1 and S2 audible. ABDOMEN: Soft and nontender. No rebound or guarding. NEUROLOGIC: She is awake, alert, oriented, able to communicate. EXTREMITIES: Bilateral leg +1 edema. LABORATORY DATA: WBC 9.4, hemoglobin 14, hematocrit 44, and platelet 221. PT 27.1 and INR 2.44. Chemistry; sodium 140, potassium 4.1, chloride 101, CO2 of 26 BUN 14, creatinine 0.8, and blood sugar of 109. ALT less than 6. BNP 563. X-ray chest shows cardiomegaly and atherosclerosis and calcification of aorta. ASSESSMENT: 1. Chest pain rule out unstable angina. 2. Hypertension. 3. Hyperlipidemia. 4. Coronary artery disease. 5. Chronic atrial fibrillation. 6. Status post cardiac cath in 01/15/2017 and she was found to have nonobstructive coronary disease distal circumflex 55% and ejection fraction of 55%. PLAN: The patient will be placed in observation. We will resume her medication. Follow up cardiac enzyme. Dr. Lopes will be consulted and we will follow up serial troponin and Dr. Lazo will follow up the patient in a.m. Keli Arita MD
[2018-10-18 01:34] VITALS: O2SAT 99
[2018-10-18] MEDS: Levalbuterol 0.63 MG/3 ML Inhal Soln UD IH SCH ×3 (03:01→14:16)
[2018-10-18] MEDS ORDERED: Pantoprazole 40 mg EC Tab PO SCH (06:00)
--- NOTE | 2018-10-18 06:20 | CP.PCM.PN ---
Subjective - Date & Time of Evaluation Date of Evaluation: 10/18/18 Time of Evaluation: 06:20 Objective - Vital Signs/Intake and Output Vital Signs (last 24 hours): Temp Pulse Resp BP Pulse Ox 98.2 F 68 20 169/83 H 99 10/18/18 05:50 10/18/18 05:50 10/18/18 05:50 10/18/18 05:50 10/18/18 05:50 - Medications Medications: Current Medications Acetaminophen (Tylenol 325mg Tab) 650 mg PO Q6H PRN PRN Reason: Pain, Mild (1-3) Last Admin: 10/17/18 22:44 Dose: 650 mg Aspirin (Ecotrin) 81 mg PO DAILY [facility] Last Admin: 10/17/18 18:17 Dose: Not Given Atorvastatin Calcium (Lipitor) 40 mg PO DIN [facility] Docusate Sodium (Colace) 100 mg PO TID [facility] Last Admin: 10/17/18 18:20 Dose: 100 mg Donepezil HCl (Aricept) 5 mg PO HS [facility] Last Admin: 10/17/18 22:44 Dose: 5 mg Furosemide (Lasix) 40 mg PO DAILY [facility] Levalbuterol HCl (Xopenex) 0.63 mg IH [id number] [facility] Last Admin: 10/18/18 03:01 Dose: 0.63 mg Losartan Potassium (Cozaar) 50 mg PO DAILY [facility] Last Admin: 10/17/18 18:20 Dose: 50 mg Metoprolol Tartrate (Lopressor) 25 mg PO BID [facility] Last Admin: 10/17/18 18:19 Dose: 25 mg Pantoprazole Sodium (Protonix Ec Tab) 40 mg PO 0600 [facility] Potassium Chloride (K-Dur 20 Meq Er Tab) 20 meq PO DAILY [facility] Warfarin Sodium (Coumadin) 1 mg PO 1800 [facility]; Protocol Last Admin: 10/17/18 18:43 Dose: 1 mg - Labs Labs: 10/17/18 14:30 10/17/18 15:14 PT 27.1 SECONDS (9.4-12.5) H 10/17/18 14:30 INR 2.44 10/17/18 14:30 APTT 40.0 Seconds (26.9-38.3) H 10/17/18 14:30
--- NOTE | 2018-10-18 09:45 | CARD ---
APPROVED REPORT Date of service: 10/17/2018 EKG Measurement Heart [id number] <Conclusion> Atrial Fibrillation, PVCs. Cannot rule out Anteroseptal infarct, age Old. Abnormal ECG
[2018-10-18] MEDS ORDERED: Potassium Chloride 20 mEq ER Tab PO SCH (10:00)
[2018-10-18 11:36] LABS: HEMOGLOBIN 13.8 g/dL (12.0-16.0); MEAN CELL VOLUME 92.1 fl (80.0-105.0); MEAN CORPUSCULAR HEMOGLOBIN 30.4 pg (25.0-35.0); MEAN PLATELET VOLUME 10.1 fl (7.0-11.0); RBC 4.54 {null, 10^6/uL} (3.5-6.1); RED CELL DISTRIBUTION WIDTH 16.2 % (11.5-14.5); WHITE BLOOD COUNT 10.1 {null, 10^3/uL} (4.5-11.0)
[2018-10-18 11:42] LABS: INR 2.04; PROTHROMBIN TIME 23.1 SECONDS (9.4-12.5)
[2018-10-18 12:01] LABS: LDL CHOLESTEROL 64 mg/dL (0-129)
[2018-10-18 12:07] LABS: ALB/GLOB RATIO 1.2 (1.1-1.8); ALBUMIN 4.7 g/dL (3.0-4.8); ALT/SGPT 13 U/L (7-56); AST/SGOT 26 U/L (14-36); BLOOD UREA NITROGEN 11 mg/dL (7-21); CALCIUM 10.6 mg/dL (8.4-10.5); FREE T4 1.19 ng/dL (0.78-2.19); GFR NON-AFRICAN AMERICAN > 60; HDL CHOLESTEROL 54 mg/dL (29-60)
--- NOTE | 2018-10-18 12:47 | CP.PCM.DIS ---
<Neha Marina - Last Filed: 10/18/18 16:28> Provider - Provider Date of Admission: 10/17/18 16:19 Attending physician: Moreno Lazo MD Consults: 10/17/18 17:59 Consult [Physician Consult] Routine Comment: Consulting Provider: Maurizio Lopes Consulting Physician: Maurizio Lopes Reason for Consult: chest pain Time Spent in preparation of Discharge (in minutes): 60 Diagnosis - Discharge Diagnosis (1) Shortness of breath Status: Acute (2) Pulmonary hypertension Status: Acute Hospital Course - Lab Results Lab Results: Most Recent Lab Values WBC 10.1 10^3/uL (4.5-11.0) 10/18/18 11:25 RBC 4.54 10^6/uL (3.5-6.1) 10/18/18 11:25 Hgb 13.8 g/dL (12.0-16.0) 10/18/18 11:25 Hct 41.8 % (36.0-48.0) 10/18/18 11:25 MCV 92.1 fl (80.0-105.0) 10/18/18 11:25 MCH 30.4 pg (25.0-35.0) 10/18/18 11:25 MCHC 33.0 g/dl (31.0-37.0) 10/18/18 11:25 RDW 16.2 % (11.5-14.5) H 10/18/18 11:25 Plt Count 180 10^3/uL (120.0-450.0) 10/18/18 11:25 MPV 10.1 fl (7.0-11.0) 10/18/18 11:25 Neut % (Auto) 54.8 % (50.0-68.0) 10/17/18 14:30 Lymph % (Auto) 35.0 % (22.0-35.0) 10/17/18 14:30 [place] % (Auto) 7.1 % (1.0-6.0) H 10/17/18 14:30 Eos % (Auto) 2.9 % (1.5-5.0) 10/17/18 14:30 Baso % (Auto) 0.2 % (0.0-3.0) 10/17/18 14:30 Lymph # (Auto) 3.3 (1.2-3.4) 10/17/18 14:30 [place] # (Auto) 0.7 (0.1-0.6) H 10/17/18 14:30 Eos # (Auto) 0.3 (0.0-0.7) 10/17/18 14:30 Baso # (Auto) 0.02 K/mm3 (0.0-2.0) 10/17/18 14:30 Absolute Neuts (auto) 5.14 (1.4-6.5) 10/17/18 14:30 PT 23.1 SECONDS (9.4-12.5) H 10/18/18 05:00 INR 2.04 10/18/18 05:00 APTT 40.0 Seconds (26.9-38.3) H 10/17/18 14:30 D-Dimer, Quantitative 468 ng/mlDDU (0-243) H 10/17/18 14:30 Sodium 138 mmol/L (132-148) 10/18/18 11:25 Potassium 3.9 mmol/L (3.6-5.0) 10/18/18 11:25 Chloride 102 mmol/L (98-107) 10/18/18 11:25 Carbon Dioxide 25 mmol/L (21-33) 10/18/18 11:25 Anion Gap 15 (10-20) 10/18/18 11:25 BUN 11 mg/dL (7-21) 10/18/18 11:25 Creatinine 0.6 mg/dl (0.7-1.2) L 10/18/18 11:25 Est GFR ( Amer) > 60 10/18/18 11:25 Est GFR (Non-Af Amer) > 60 10/18/18 11:25 Random Glucose 109 mg/dL (70-110) 10/18/18 11:25 Calcium 10.6 mg/dL (8.4-10.5) H 10/18/18 11:25 Phosphorus 2.4 mg/dL (2.5-4.5) L 10/18/18 11:25 Magnesium 1.9 mg/dL (1.7-2.2) 10/18/18 11:25 Total Bilirubin 0.8 mg/dL (0.2-1.3) 10/18/18 11:25 AST 26 U/L (14-36) 10/18/18 11:25 ALT 13 U/L (7-56) 10/18/18 11:25 Alkaline Phosphatase 98 U/L (38-126) 10/18/18 11:25 Lactate Dehydrogenase 567 U/L (333-699) 10/17/18 15:14 Total Creatine Kinase 41 U/L (35-230) 10/17/18 15:14 Troponin I < 0.01 ng/mL D 10/18/18 11:25 NT-Pro-B Natriuret Pep 563 pg/mL (0-450) H 10/17/18 15:14 Total Protein 8.6 g/dL (5.8-8.3) H 10/18/18 11:25 Albumin 4.7 g/dL (3.0-4.8) 10/18/18 11:25 Globulin 3.8 gm/dL 10/18/18 11:25 Albumin/Globulin Ratio 1.2 (1.1-1.8) 10/18/18 11:25 Triglycerides 142 mg/dL (35-160) 10/18/18 11:25 Cholesterol 165 mg/dL (130-200) 10/18/18 11:25 LDL Cholesterol Direct 64 mg/dL (0-129) 10/18/18 11:25 HDL Cholesterol 54 mg/dL (29-60) 10/18/18 11:25 Free T4 1.19 ng/dL (0.78-2.19) 10/18/18 11:25 TSH 3rd Generation 2.45 mIU/mL (0.46-4.68) 10/18/18 11:25 - Hospital Course Hospital Course: This is a 83 year old female with PMH CAD s/p cardiac cath in 01/2017, dementia, chf, chronic afib on coumadin, is here for mild shortness of breath and chest discomfort since the morning of arrival. It was relieved with medics nitroglycerin and aspirin. Patient was admitted for chest pain, rule out ACS. EKG showed afib HR 95 with frequent PVCs. troponins were negative x2, then 0.02, and then <0.01. Morgan was re-started on her home meds. Cardiology evaluated patient, recommended stress test outpatient. Last echocardiogram was on 11/2017, EF 68%, severe pulmonary HTN, Severe Tricuspid regurgitation. This AM, patient reports resolution of symptoms with stable vitals. Discussed with daughter regarding discharge home. Patient will follow up with Dr Donohue outpatient in 3-5 day and Cardiology as well. Case reviewed and disucssed with Dr Lazo. Discharge Exam - Head Exam Head Exam: ATRAUMATIC, NORMAL INSPECTION, NORMOCEPHALIC - Eye Exam Eye Exam: EOMI, PERRL. absent: Conjunctival injection, Nystagmus, Scleral icterus Pupil Exam: NORMAL ACCOMODATION, PERRL. absent: Irregular, Miosis, Mydriatic - ENT Exam ENT Exam: Mucous Membranes Moist - Respiratory Exam Respiratory Exam: Clear to PA & Lateral, NORMAL BREATHING PATTERN. absent: Accessory Muscle Use, Prolonged Expiratory Phase, Rhonchi, Wheezes, Respiratory Distress, Stridor - Cardiovascular Exam Cardiovascular Exam: RRR, +S1, +S2. absent: Systolic Murmur - GI/Abdominal Exam GI & Abdominal Exam: Normal Bowel Sounds, Soft. absent: Distended, Guarding, Mass, Rebound, Rigid - Extremities Exam Extremities exam: normal inspection - Back Exam Back exam: NORMAL INSPECTION - Neurological Exam Neurological exam: Alert, Oriented x3 - Psychiatric Exam Psychiatric exam: Normal Affect, Normal Mood - Skin Skin Exam: Dry, Normal Color, Warm Discharge Plan - Follow Up Plan Condition: GOOD Disposition: HOME/ ROUTINE Instructions: Atrial Fibrillation (DC), Chest Pain (DC) Additional Instructions: Follow up with your primary care doctor Dr Donohue in 3-5 days. Follow up with your [facility] outpatient. Take medications as directed. Return to the emergency room for any worsening of symptoms. Referrals: Jose Donohue MD [Family Provider] - <Moreno Lazo - Last Filed: 10/18/18 17:15> Provider - Provider Date of Admission: 10/17/18 16:19 Attending physician: Moreno Lazo MD Consults: 10/17/18 17:59 Consult [Physician Consult] Routine Comment: Consulting Provider: Maurizio Lopes Consulting Physician: Maurizio Lopes Reason for Consult: chest pain Hospital Course - Lab Results Lab Results: Most Recent Lab Values WBC 10.1 10^3/uL (4.5-11.0) 10/18/18 11:25 RBC 4.54 10^6/uL (3.5-6.1) 10/18/18 11:25 Hgb 13.8 g/dL (12.0-16.0) 10/18/18 11:25 Hct 41.8 % (36.0-48.0) 10/18/18 11:25 MCV 92.1 fl (80.0-105.0) 10/18/18 11:25 MCH 30.4 pg (25.0-35.0) 10/18/18 11:25 MCHC 33.0 g/dl (31.0-37.0) 10/18/18 11:25 RDW 16.2 % (11.5-14.5) H 10/18/18 11:25 Plt Count 180 10^3/uL (120.0-450.0) 10/18/18 11:25 MPV 10.1 fl (7.0-11.0) 10/18/18 11:25 Neut % (Auto) 54.8 % (50.0-68.0) 10/17/18 14:30 Lymph % (Auto) 35.0 % (22.0-35.0) 10/17/18 14:30 [place] % (Auto) 7.1 % (1.0-6.0) H 10/17/18 14:30 Eos % (Auto) 2.9 % (1.5-5.0) 10/17/18 14:30 Baso % (Auto) 0.2 % (0.0-3.0) 10/17/18 14:30 Lymph # (Auto) 3.3 (1.2-3.4) 10/17/18 14:30 [place] # (Auto) 0.7 (0.1-0.6) H 10/17/18 14:30 Eos # (Auto) 0.3 (0.0-0.7) 10/17/18 14:30 Baso # (Auto) 0.02 K/mm3 (0.0-2.0) 10/17/18 14:30 Absolute Neuts (auto) 5.14 (1.4-6.5) 10/17/18 14:30 PT 23.1 SECONDS (9.4-12.5) H 10/18/18 05:00 INR 2.04 10/18/18 05:00 APTT 40.0 Seconds (26.9-38.3) H 10/17/18 14:30 D-Dimer, Quantitative 468 ng/mlDDU (0-243) H 10/17/18 14:30 Sodium 138 mmol/L (132-148) 10/18/18 11:25 Potassium 3.9 mmol/L (3.6-5.0) 10/18/18 11:25 Chloride 102 mmol/L (98-107) 10/18/18 11:25 Carbon Dioxide 25 mmol/L (21-33) 10/18/18 11:25 Anion Gap 15 (10-20) 10/18/18 11:25 BUN 11 mg/dL (7-21) 10/18/18 11:25 Creatinine 0.6 mg/dl (0.7-1.2) L 10/18/18 11:25 Est GFR ( Amer) > 60 10/18/18 11:25 Est GFR (Non-Af Amer) > 60 10/18/18 11:25 Random Glucose 109 mg/dL (70-110) 10/18/18 11:25 Hemoglobin A1c 5.9 % (4.2-6.5) 10/18/18 11:25 Calcium 10.6 mg/dL (8.4-10.5) H 10/18/18 11:25 Phosphorus 2.4 mg/dL (2.5-4.5) L 10/18/18 11:25 Magnesium 1.9 mg/dL (1.7-2.2) 10/18/18 11:25 Total Bilirubin 0.8 mg/dL (0.2-1.3) 10/18/18 11:25 AST 26 U/L (14-36) 10/18/18 11:25 ALT 13 U/L (7-56) 10/18/18 11:25 Alkaline Phosphatase 98 U/L (38-126) 10/18/18 11:25 Lactate Dehydrogenase 567 U/L (333-699) 10/17/18 15:14 Total Creatine Kinase 41 U/L (35-230) 10/17/18 15:14 Troponin I < 0.01 ng/mL D 10/18/18 11:25 NT-Pro-B Natriuret Pep 563 pg/mL (0-450) H 10/17/18 15:14 Total Protein 8.6 g/dL (5.8-8.3) H 10/18/18 11:25 Albumin 4.7 g/dL (3.0-4.8) 10/18/18 11:25 Globulin 3.8 gm/dL 10/18/18 11:25 Albumin/Globulin Ratio 1.2 (1.1-1.8) 10/18/18 11:25 Triglycerides 142 mg/dL (35-160) 10/18/18 11:25 Cholesterol 165 mg/dL (130-200) 10/18/18 11:25 LDL Cholesterol Direct 64 mg/dL (0-129) 10/18/18 11:25 HDL Cholesterol 54 mg/dL (29-60) 10/18/18 11:25 Free T4 1.19 ng/dL (0.78-2.19) 10/18/18 11:25 TSH 3rd Generation 2.45 mIU/mL (0.46-4.68) 10/18/18 11:25 - Hospital Course Hospital Course: Pt seen and examined by me. I have reviewed the note of the medical scribe and I agree with it. I have discussed the assessment and plan with the resident. I have reviewed the medications and the last labs.
[2018-10-18 13:46] VITALS: BP 174/73; PULSE 64; TEMP 97.8
--- NOTE | 2018-10-18 20:19 | CON ---
DATE: 10/18/2018 CONSULT SERVICE: Cardiology. REASON FOR CONSULTATION: Followup, chest pain, history of coronary artery disease, history of chronic atrial fibrillation, and history of angioplasty in the past. BRIEF CLINICAL HISTORY: This is an 83-year-old female with past medical history significant for coronary artery disease, status post PTCA in the past, history of dementia, history of congestive heart failure, she has chronic atrial fibrillation, history of stone, came in with complaint of feeling very weak and shortness of breath. I discussed with the daughter named Wandy, telephone number [phone], who says that the patient after having lunch, laid down and may be indigestion and wanted to come to the ER. Denies any episode of chest pain recently or dyspnea on exertion or chest pain on exertion. She said the patient is very immobile mostly lay on the bed all the time, does not want to walk. PAST MEDICAL HISTORY: Significant for coronary artery disease, status post stent in 1998, history of cardiac catheterization in 2013 and 01/23/2017 that shows nonobstructive coronary artery disease, patent stent proximal LAD, medical treatment recommended. PREVIOUS CARDIAC WORKUP FOLLOWS: The patient had a cardiac catheterization 01/23/2017 that showed nonobstructive coronary artery disease, limited only to distal LAD, persevered LV function, ejection fraction 55% and end-diastolic pressure in the range of 18 mmHg. Patent stent in proximal and mid LAD was noted. Catheterization dated 01/23/2017. Prior to that, the patient had a cardiac catheterization on 04/20/2014 that also shows patent stent. History of atrial fibrillation chronic, on anticoagulation. The patient had a stent in LAD in 1998 and repeat stent in 2013. Most recent stent as mentioned above catheterization 01/23/2017, that shows patent stent in proximal and mid LAD that was placed earlier and ejection fraction preserved, EDP was in the range of 18 mmHg. The patient's last echo dated 12/10/2016 that shows dilated RV, dilated right atrium, dilated left atrium, normal LV size and function, [id number] tricuspid regurgitation, moderate pulmonary hypertension, RV systolic pressure 64 mmHg, and mild mitral regurgitation. SOCIAL HISTORY: Denies any smoking. Denies any history of alcohol abuse. CURRENT MEDICATIONS: The patient is taking at home; Coumadin 1 mg daily, potassium 10 mEq daily, pantoprazole that is Protonix 40 mg daily, metoprolol tartrate 25 p.o. b.i.d., losartan 50 mg daily, Xopenex 0.63 mg daily, Haldol 0.25 mg daily, Lasix 40 mg daily, vitamin D one capsule daily 50,000 units, Aricept 5 mg daily, Colace 100 mg daily, mEq daily, and aspirin 81 mg daily. ALLERGIES: NO KNOWN DRUG ALLERGIES. REVIEW OF SYSTEMS: As per HPI. PHYSICAL EXAMINATION: GENERAL: As follows; height of the patient 5 feet 7 inches, weight of the patient 185 pounds, and body mass index 30 kg/m2. VITAL SIGNS: Temperature afebrile, heart rate 87, and blood pressure 163/83. HEENT: PERRLA. Extraocular muscles intact. NECK: Supple. No carotid bruits or thyromegaly. CHEST: Clear to auscultation. HEART: S1 and S2 regular. ABDOMEN: Soft. EXTREMITIES: Clubbing and cyanosis negative. LABORATORY DATA: EKG shows atrial fibrillation controlled rate of 70, AFib. Blood workup; WBC 9.4, hemoglobin 14.8, hematocrit 44.1, and platelet count 221. Chemistry shows sodium 140, potassium 4.1, chloride 101, carbon dioxide 26, anion gap of 17, BUN 14, and creatinine 0.8. Troponin 0.01 x2 negative 0.2, three times troponin is negative. BNP level 563. Admitting chest x-ray dated 10/17/2018 reviewed, very mild encephalization, pulmonary vascular congestion noted, very mild noted. IMPRESSION AND PLAN: An 83-year-old female with past medical history significant for coronary artery disease, status post stent in 1998 and 2013 proximal mid left anterior descending, repeat catheterization 2016 essentially patent stent, preserved left ventricular function. Admitted with generalized weakness. So far, no evidence of acute myocardial infarction. Discussed with the daughter named Wandy, telephone number [phone]. According to her, the patient may have gas and she said that the patient manipulated, she wanted to take the patient home, does not want a stress test. A stress test was offered to her, the patient was willing as well as not willing wanted to discuss with Dr. Lazo and the daughter. Daughter does not want stress test and wanted to be discharged today and opted for medical treatment. So far, no evidence for acute myocardial infarction. We will resume back on Coumadin. INR was 2.44. We will resume all previous medications and we will update Dr. Lazo other development and we will hold off the stress test. We will repeat echo with the patient's and we will follow with the echo result. Last echo was 2016. The patient did not show up recently in Dr. Arceo's office, last visit probably more than a year or two ago because the patient is mostly bed bound, also the daughter says that the patient does not listen and does not walk mostly early on the bed. Again, no evidence of acute myocardial infarction. The patient has a history of chronic atrial fibrillation, on anticoagulation. Therapeutic INR. We will continue current medications. Maurizio Lopes MD
--- NOTE | 2018-10-18 21:35 | DS ---
HISTORY OF PRESENT ILLNESS: This is an 83-year-old female that had come to the hospital complaining of shortness of breath. She was admitted and had improvement of her symptoms. She has a history of pulmonary hypertension as well as tricuspid regurgitation. The patient had atrial fibrillation and is on Coumadin. I did see and evaluate the patient as well I examined the patient. The patient was seen and evaluated and I do agree with the assessment and plan of the medical billing associate. I was involved in the plan of care. She had troponins that are negative. She was seen by Dr. Lopes and also had a stress test. The patient's daughter did not feel that a stress test is needed at this time. The patient is discharged. I did speak to the patient's daughter, Melita to give her an update. She was given a dose of Xanax. She does have underlying anxiety. Moreno Lazo MD
== END 2018-10-18 16:07 | disposition home or self-care (01) ==
LOC: ED 14:12 → ERH 16:19 → 2RSO 21:32
PROVIDERS: ADMIT Internal Medicine Nephrology; ATTEND Internal Medicine Nephrology
DX: I25.10 Atherosclerotic heart disease of native coronary artery without angina pectoris (principal); E78.5 Hyperlipidemia, unspecified; F03.90 Unspecified dementia, unspecified severity, without behavioral disturbance, psychotic disturbance, mood disturbance, and anxiety; F41.9 Anxiety disorder, unspecified; H91.90 Unspecified hearing loss, unspecified ear; I07.1 Rheumatic tricuspid insufficiency; I11.0 Hypertensive heart disease with heart failure; I50.9 Heart failure, unspecified; I48.2 Chronic atrial fibrillation; I27.20 Pulmonary hypertension, unspecified; Z79.01 Long term (current) use of anticoagulants; Z87.01 Personal history of pneumonia (recurrent); Z87.440 Personal history of urinary (tract) infections; Z87.442 Personal history of urinary calculi; Z95.5 Presence of coronary angioplasty implant and graft
CPT/HCPCS: 36415; 71045; 80053; 80061; 82550; 83036; 83615; 83735; 83880; 84100; 84439; 84443; 84484; 85025; 85027; 85378; 85610; 85730; 93005; 94640; 99285; G0378

== ENCOUNTER 2018-10-24 13:25 | Inpatient (IN) | payer MEDICARE | END 2018-10-29 16:32 | LOC: 2RNO 10-27 00:31 → ED 13:25 → ERH 16:56 → 5RNO 20:01 ==

== ENCOUNTER 2018-10-31 12:21 | Observation (INO) | payer MEDICARE ==
[2018-10-31 12:42] VITALS: BMI 29.1
--- NOTE | 2018-10-31 12:52 | ED PDOC ---
Arrival/HPI - General Chief Complaint: Altered Mental Status Time Seen by Provider: 10/31/18 12:32 Historian: Patient, Alf, EMS - History of Present Illness Time/Duration: Prior to Arrival Severity Level: Moderate Activities at Onset: Rest Associated Symptoms (Text): 10/31/18 12:49 [facility] for an altered mental status. Patient had a CVA last week. She was in rehabilitation and just transferred to the [facility]. Patient is unable to give an accurate history. History of dementia atrial fibrillation CHF and now CVA with left-sided weakness. Apparently, there is also a fracture of the left ankle. No new injury or trauma. Past Medical History - Provider Review Nursing Documentation Reviewed: Yes - Past History Past History: No Previous - Infectious Disease Hx of Infectious Diseases: None - Cardiac Hx Cardiac Disorders: Yes Hx Congestive Heart Failure: Yes - Pulmonary Hx Pneumonia: Yes - Neurological Hx Neurological Disorder: Yes Hx Dementia: Yes Hx Dizziness: Yes - HEENT Other/Comment: Hard of hearing - Renal Hx Renal Disorder: Yes Hx Kidney Stones: Yes - Endocrine/Metabolic Hx Diabetes Mellitus Type 1: No Hx Diabetes Mellitus Type 2: No Hx Hypothyroidism: No - Hematological/Oncological Hx Cancer: No - Integumentary Hx Dermatological Disorder: Yes - Musculoskeletal/Rheumatological Hx Falls: Yes - Gastrointestinal Hx Gastrointestinal Disorders: No - Genitourinary/Gynecological Hx Genitourinary Disorders: Yes Hx Incontinence: Yes Hx Urinary Tract Infection: Yes - Psychiatric Hx Psychophysiologic Disorder: No Hx Emotional Abuse: No Hx Physical Abuse: No Hx Substance Use: No - Surgical History Hx Mastectomy: No - Anesthesia Hx Anesthesia Reactions: No Hx Malignant Hyperthermia: No - Suicidal Assessment Feels Threatened In Home Enviroment: No Family/Social History - Physician Review Nursing Documentation Reviewed: Yes Family/Social History: Unknown Family HX Smoking Status: Unknown If Ever Smoked Hx Alcohol Use: No Hx Substance Use: No Hx Substance Use Treatment: No Allergies/Home Meds Allergies/Adverse Reactions: Allergies No Known Allergies Allergy (Verified 10/17/18 14:18) Review of Systems - Review of Systems Systems not reviewed;Unavailable: Dementia Physical Exam Temperature: Afebrile Blood Pressure: Normal Pulse: Regular Respiratory Rate: Normal Appearance: Positive for: Well-Appearing, Non-Toxic, Comfortable, Other (Pale) Pain Distress: None Mental Status: Positive for: other (Awake and oriented x1 only.) - Systems Exam Head: Present: Atraumatic, Normocephalic Pupils: Present: PERRL Extroacular Muscles: Present: EOMI Conjunctiva: Present: Normal Ears: Present: NORMAL TM, Normal Canal. No: Erythema, TM Bulging Mouth: Present: Moist Mucous Membranes Pharnyx: No: ERYTHEMA, EXUDATE, TONSILS ENLARGED Neck: Present: Normal Range of Motion Respiratory/Chest: Present: Clear to Auscultation, Good Air Exchange, Decreased Breath Sounds. No: Respiratory Distress, Accessory Muscle Use Cardiovascular: Present: Normal S1, S2, Irregular Rhythm (Normal rate). No: Murmurs Abdomen: No: Tenderness, Distention, Peritoneal Signs Back: Present: Normal Inspection Upper Extremity: Present: Normal Inspection. No: Cyanosis, Edema Lower Extremity: Present: Normal Inspection. No: Edema Neurological: Present: CN II-XII Intact, Speech Normal. No: Motor Func Grossly Intact (Patient is unable to move her left lower extremity left upper extremity right lower extremity. She has some movement against gravity with her right upper extremity.) Skin: Present: Warm, Dry, Normal Color, Pale. No: Rashes Medical Decision Making ED Course and Treatment: 10/31/18 12:52 EKG shows atrial fibrillation rate approximately [address] and T wave changes. 10/31/18 13:45 Lactic acid is elevated at 2.8, but 30 cc/kg of IV fluids are not given secondary to the patient's history of congestive heart failure. 10/31/18 14:50 CT scan of the head as read by the radiologist is unremarkable. Repeat lactic acid is down to 2.4. - RAD Interpretation Radiology Orders: 10/31/18 12:45 HEAD W/O CONTRAST [CT] Stat 10/31/18 12:46 CHEST PORTABLE [RAD] Stat Chest one view shows no infiltrate effusion or cardiomegaly. Wire Coiner: ED Physician Disposition/Present on Arrival - Present on Arrival Any Indicators Present on Arrival: No History of DVT/PE: No History of Uncontrolled Diabetes: No Urinary Catheter: No History of Decub. Ulcer: No History Surgical Site Infection Following: None - Disposition Have Diagnosis and Disposition been Completed?: Yes Diagnosis: Atrial fibrillation, Altered mental status, Leukocytosis, Cerebrovascular accident Disposition: HOSPITALIZED Disposition Time: 15:27 Patient Plan: Observation, Telemetry Condition: FAIR Forms: [employer] (Mexican)
[2018-10-31 13:46] LABS: VENOUS BLOOD GAS BASE EXCESS 1.8 mmol/L (0.0-2.0); VENOUS BLOOD GAS PO2 50 mm/Hg (30-55); VENOUS BLOOD PH 7.34 (7.32-7.43)
[2018-10-31] MEDS ORDERED: Sodium Chloride 0.9% 1,000 ML IV ONE (13:46)
--- NOTE | 2018-10-31 13:54 | RAD ---
Date of service: 10/31/2018 HISTORY: Altered mental status. COMPARISON: 10/17/2018. FINDINGS: LUNGS: No active pulmonary disease. PLEURA: No significant pleural effusion identified, no pneumothorax apparent. CARDIOVASCULAR: Atherosclerotic calcifications identified primarily aortic arch. Cardiomegaly. No evidence of acute, significant cardiovascular disease. OSSEOUS STRUCTURES: No significant abnormalities. VISUALIZED UPPER ABDOMEN: Normal. OTHER FINDINGS: None. IMPRESSION: No active disease. No significant interval change compared to the prior examination(s).
[2018-10-31 13:57] LABS: ALBUMIN 4.1 g/dL (3.0-4.8); ALT/SGPT 18 U/L (7-56); AST/SGOT 28 U/L (14-36); BLOOD UREA NITROGEN 21 mg/dL (7-21); CALCIUM 10.6 mg/dL (8.4-10.5); GFR NON-AFRICAN AMERICAN 60
[2018-10-31 14:05] LABS: INR 1.47; PROTHROMBIN TIME 16.6 SECONDS (9.4-12.5)
[2018-10-31 14:08] LABS: TROPONIN I < 0.01 ng/mL
[2018-10-31 14:12] LABS: URINE BILIRUBIN NEGATIVE (NEGATIVE); URINE BLOOD NEGATIVE (NEGATIVE); URINE GLUCOSE (UA) NEGATIVE (NEGATIVE); URINE LEUKOCYTE ESTERASE NEGATIVE Leu/uL (NEGATIVE); URINE PROTEIN NEGATIVE mg/dL (<30 mg/dL)
[2018-10-31 14:16] LABS: URINE APPEARANCE CLEAR (CLEAR); URINE COLOR YELLOW (YELLOW)
[2018-10-31 14:21] LABS: BASO # 0.02 K/mm3 (0.0-2.0); BASO % 0.1 % (0.0-3.0); EOS % 0.3 % (1.5-5.0); HEMOGLOBIN 15.8 g/dL (12.0-16.0); LYMPH # 2.4 (1.2-3.4); LYMPH % 16.9 % (22.0-35.0); MEAN CELL VOLUME 92.9 fl (80.0-105.0); MEAN CORPUSCULAR HGB CONC 33.4 g/dl (31.0-37.0); MEAN PLATELET VOLUME 10.8 fl (7.0-11.0); MONO # 1.2 (0.1-0.6); MONO % 8.2 % (1.0-6.0); RBC 5.09 10^6/uL (3.5-6.1); RED CELL DISTRIBUTION WIDTH 16.4 % (11.5-14.5); WHITE BLOOD COUNT 14.1 10^3/uL (4.5-11.0)
--- NOTE | 2018-10-31 14:41 | CT ---
Date of service: 10/31/2018 PROCEDURE: CT HEAD WITHOUT CONTRAST. HISTORY: Altered mental status. COMPARISON: 10/25/2018. CT head TECHNIQUE: Axial computed tomography images were obtained through the head/brain without intravenous contrast. Supplemental Coronal and Sagittal projections created and reviewed. Radiation dose: Total exam DLP = 896.03 mGy-cm. This CT exam was performed using one or more of the following dose reduction techniques: Automated exposure control, adjustment of the mA and/or kV according to patient size, and/or use of iterative reconstruction technique. FINDINGS: HEMORRHAGE: No intracranial hemorrhage. BRAIN: No mass effect or edema. Cortical and cerebellar atrophy, periventricular small vessel disease. VENTRICLES: Unremarkable. No hydrocephalus. CALVARIUM: Unremarkable. PARANASAL SINUSES: Unremarkable as visualized. No significant inflammatory changes. MASTOID AIR CELLS: Unremarkable as visualized. No inflammatory changes. OTHER FINDINGS: None. IMPRESSION: No acute intracranial abnormalities. No significant findings to account for the clinical presentation. No significant interval change compared to the prior examination(s).
--- NOTE | 2018-10-31 15:23 | CARD ---
APPROVED REPORT Date of service: 10/31/2018 EKG Measurement Heart [id number] <Conclusion> Atrial fibrillation Nonspecific ST and T wave abnormality, probably digitalis effect Abnormal ECG
[2018-10-31 18:13] LABS: VENOUS BLOOD GAS PO2 36 mm/Hg (30-55); VENOUS BLOOD PH 7.38 (7.32-7.43)
[2018-11-01] MEDS ORDERED: Pantoprazole 40 mg EC Tab PO SCH (06:00)
[2018-11-01 06:21] VITALS: O2SAT 97
--- NOTE | 2018-11-01 08:12 | CP.PCM.HP ---
<Edward Claire - Last Filed: 11/01/18 17:30> History of Present Illness - History of Present Illness History of Present Illness: History and Physical for Dr. Lazo 83 year old female with past medical history of CAD s/p stent placement, chronic A-fib on Warfarin, CHF with preserved ejection fraction, nephrolithiasis, dementia, post-herpetic neuralgia, chronic left ankle fracture, and recent ischemic CVA presents to the hospital after developing altered mental status at rehab. Patient was discharged 2 days ago from hospital and sent to rehab for deconditioning and her stroke. Patient was noted to be difficult to arouse as per rehab staff. Patient was sent to the hospital for further evaluation. Currently, patient is oriented x3 and has no complaints. Patient denies chest pain, shortness of breath, nausea, vomiting, fever, chills, dysuria, numbness, tingling. Medical Hx: As above Surgical Hx: Ankle surgery Family Hx: Denies Social Hx: Denies alcohol, tobacco, and illicit drug use. Lives with Medications: Reviewed, as per [facility] Allergies: NKDA Present on Admission - Present on Admission Any Indicators Present on Admission: No Review of Systems - Review of Systems Review of Systems: 12 point ROS as per HPI, otherwise negative Past Patient History - Infectious Disease Hx of Infectious Diseases: None - Past Social History Smoking Status: Never Smoked - CARDIAC Hx Cardiac Disorders: Yes Hx Cardia Arrhythmia: Yes (Afib on coumadin) Hx Congestive Heart Failure: Yes Hx Hypercholesterolemia: Yes Hx Hypertension: Yes - PULMONARY Hx Respiratory Disorders: Yes Hx Pneumonia: Yes - NEUROLOGICAL Hx Neurological Disorder: Yes HX Cerebrovascular Accident: Yes Hx Dementia: Yes Hx Dizziness: Yes - HEENT Hx HEENT Problems: Yes Other/Comment: Hard of hearing - RENAL Hx Chronic Kidney Disease: Yes (renal disease) Hx Kidney Stones: Yes - ENDOCRINE/METABOLIC Hx Endocrine Disorders: No Hx Diabetes Mellitus Type 1: No Hx Diabetes Mellitus Type 2: No Hx Hypothyroidism: No - HEMATOLOGICAL/ONCOLOGICAL Hx Blood Disorders: No - INTEGUMENTARY Hx Dermatological Problems: Yes - MUSCULOSKELETAL/RHEUMATOLOGICAL Hx Musculoskeletal Disorders: Yes Hx Falls: Yes Hx Fractures: Yes (left ankle fracture) - GASTROINTESTINAL Hx Gastrointestinal Disorders: No - GENITOURINARY/GYNECOLOGICAL Hx Genitourinary Disorders: Yes Hx Incontinence: Yes Hx Urinary Tract Infection: Yes - PSYCHIATRIC Hx Psychophysiologic Disorder: No Hx Substance Use: No - SURGICAL HISTORY Hx Coronary Stent: Yes - ANESTHESIA Hx Anesthesia Reactions: No Hx Malignant Hyperthermia: No Meds Allergies/Adverse Reactions: Allergies Allergy/AdvReac Type Severity Reaction Status Date / Time No Known Allergies Allergy Verified 10/17/18 14:18 Physical Exam - Constitutional Appears: Non-toxic, No Acute Distress - Head Exam Head Exam: ATRAUMATIC, NORMAL INSPECTION, NORMOCEPHALIC - ENT Exam ENT Exam: Mucous Membranes Moist - Respiratory Exam Respiratory Exam: Decreased Breath Sounds, NORMAL BREATHING PATTERN - Cardiovascular Exam Cardiovascular Exam: Irregular Rhythm, +S1, +S2 - GI/Abdominal Exam GI & Abdominal Exam: Normal Bowel Sounds, Soft. absent: Tenderness - Extremities Exam Extremities exam: Negative for: pedal edema Additional comments: Chronic left ankle fracture - Neurological Exam Neurological exam: Alert, Oriented x3 Additional comments: Left upper extremity strength 0/5 Left lower extremity strength 1/5 Right upper and lower extremity strength 4/5 Left sided neglect - Psychiatric Exam Psychiatric exam: Normal Affect, Normal Mood - Skin Skin Exam: Intact, Normal Color, Warm Results - Vital Signs Recent Vital Signs: Last Vital Signs Temp 97.4 F L 11/01/18 06:00 Pulse 110 H 11/01/18 06:00 Resp 20 11/01/18 06:00 BP 133/85 11/01/18 06:00 Pulse Ox 97 11/01/18 06:00 - Labs Result Diagrams: 10/31/18 13:45 10/31/18 13:00 Labs: Laboratory Results - last 24 hr 10/31/18 10/31/18 10/31/18 13:00 13:00 13:30 WBC RBC Hgb Hct MCV MCH MCHC RDW Plt Count MPV Neut % (Auto) Lymph % (Auto) [place] % (Auto) Eos % (Auto) Baso % (Auto) Lymph # (Auto) [place] # (Auto) Eos # (Auto) Baso # (Auto) Absolute Neuts (auto) PT 16.6 H INR 1.47 APTT 34.0 pO2 50 VBG pH 7.34 VBG pCO2 53.0 VBG HCO3 28.6 H VBG Total CO2 30.2 H VBG O2 Sat (Calc) 85.7 H VBG Base Excess 1.8 VBG Potassium 4.1 Glucose 117 H Lactate 2.8 H FiO2 21.0 Crit Value Called To Itzel vivar Crit Value Called By [facility] Blood Gas Notified Time 1346 Sodium 139 138.0 Potassium 4.3 Chloride 102 101.0 Carbon Dioxide 25 Anion Gap 17 BUN 21 Creatinine 0.9 Est GFR ( Amer) > 60 Est GFR (Non-Af Amer) 60 Random Glucose 119 H Lactic Acid Calcium 10.6 H Phosphorus 3.6 Magnesium 2.3 H Total Bilirubin 0.7 AST 28 ALT 18 Alkaline Phosphatase 104 Lactate Dehydrogenase 472 Total Creatine Kinase 33 L Troponin I < 0.01 Total Protein 8.0 Albumin 4.1 Globulin 3.9 Albumin/Globulin Ratio 1.0 L Venous Blood Potassium 4.1 Urine Color Urine Appearance Urine pH Ur Specific [place] Urine Protein Urine Glucose (UA) Urine Ketones Urine Blood Urine Nitrate Urine Bilirubin Urine Urobilinogen Ur Leukocyte Esterase 10/31/18 10/31/18 10/31/18 13:45 13:45 13:45 WBC 14.1 H D RBC 5.09 Hgb 15.8 Hct 47.3 MCV 92.9 MCH 31.0 MCHC 33.4 RDW 16.4 H Plt Count 203 MPV 10.8 Neut % (Auto) 74.5 H Lymph % (Auto) 16.9 L [place] % (Auto) 8.2 H Eos % (Auto) 0.3 L Baso % (Auto) 0.1 Lymph # (Auto) 2.4 [place] # (Auto) 1.2 H Eos # (Auto) 0.0 Baso # (Auto) 0.02 Absolute Neuts (auto) 10.52 H PT INR APTT pO2 VBG pH VBG pCO2 VBG HCO3 VBG Total CO2 VBG O2 Sat (Calc) VBG Base Excess VBG Potassium Glucose Lactate FiO2 Crit Value Called To Crit Value Called By Blood Gas Notified Time Sodium Potassium Chloride Carbon Dioxide Anion Gap BUN Creatinine Est GFR ( Amer) Est GFR (Non-Af Amer) Random Glucose Lactic Acid 2.4 H Calcium Phosphorus Magnesium Total Bilirubin AST ALT Alkaline Phosphatase Lactate Dehydrogenase Total Creatine Kinase Troponin I Total Protein Albumin Globulin Albumin/Globulin Ratio Venous Blood Potassium Urine Color Yellow Urine Appearance Clear Urine pH 6.0 Ur Specific [place] >= 1.030 Urine Protein Negative Urine Glucose (UA) Negative Urine Ketones Negative Urine Blood Negative Urine Nitrate Negative Urine Bilirubin Negative Urine Urobilinogen 1.0 H Ur Leukocyte Esterase Negative 10/31/18 18:00 WBC RBC Hgb Hct MCV MCH MCHC RDW Plt Count MPV Neut % (Auto) Lymph % (Auto) [place] % (Auto) Eos % (Auto) Baso % (Auto) Lymph # (Auto) [place] # (Auto) Eos # (Auto) Baso # (Auto) Absolute Neuts (auto) PT INR APTT pO2 36 VBG pH 7.38 VBG pCO2 49.0 VBG HCO3 29.0 H VBG Total CO2 30.5 H VBG O2 Sat (Calc) 71.0 H VBG Base Excess 3.0 H VBG Potassium 4.6 Glucose 99 Lactate 2.7 H FiO2 21.0 Crit Value Called To Heather hampton Crit Value Called By Es Blood Gas Notified Time 1812 Sodium 138.0 Potassium Chloride 103.0 Carbon Dioxide Anion Gap BUN Creatinine Est GFR ( Amer) Est GFR (Non-Af Amer) Random Glucose Lactic Acid Calcium Phosphorus Magnesium Total Bilirubin AST ALT Alkaline Phosphatase Lactate Dehydrogenase Total Creatine Kinase Troponin I Total Protein Albumin Globulin Albumin/Globulin Ratio Venous Blood Potassium 4.6 Urine Color Urine Appearance Urine pH Ur Specific [place] Urine Protein Urine Glucose (UA) Urine Ketones Urine Blood Urine Nitrate Urine Bilirubin Urine Urobilinogen Ur Leukocyte Esterase Assessment & Plan - Assessment and Plan (Free Text) Plan: Altered mental status Ischemic stroke CAD s/p stent placement Chronic A-fib CHF with preserved ejection fraction Dementia Chronic left ankle fracture Patient admitted for altered mental status. Head CT reviewed, no acute pathology noted. EKG reviewed which showed atrial fibrillation. Chest x-ray reviewed with no active disease. Lab work reviewed, leukocytosis noted. INR also noted to be subtherapeutic, will increase Warfarin dose to 2 mg daily. No source of infection identified at this time, will continue without antibiotics. Patient currently with resolved altered mental status as she is oriented x3. Patient will continue her ASA and plavix for CAD. Patient will continue Losartan and Metoprolol for CHF. Patient will continue Aricept for Dementia. Patient will continue Lipitor for her ischemic stroke. Will discharge patient back to [facility] to continue rehabilitation. Alethea, PGY-3 <Moreno Lazo S - Last Filed: 11/01/18 18:24> Results - Vital Signs Recent Vital Signs: Last Vital Signs Temp 98.0 F 11/01/18 12:00 Pulse 72 03/18/19 12:00 Resp 18 11/01/18 12:00 BP 122/70 11/01/18 12:00 Pulse Ox 97 11/01/18 06:00 - Labs Result Diagrams: 11/01/18 10:40 11/01/18 08:30 Labs: Laboratory Results - last 24 hr 11/01/18 11/01/18 11/01/18 08:30 08:30 10:40 WBC 10.2 D RBC 4.38 Hgb 13.4 D Hct 40.1 MCV 91.6 MCH 30.6 MCHC 33.4 RDW 16.1 H Plt Count 195 MPV 10.9 Sodium 138 Potassium 4.1 Chloride 104 Carbon Dioxide 25 Anion Gap 14 BUN 19 Creatinine 0.6 L Est GFR ( Amer) > 60 Est GFR (Non-Af Amer) > 60 Random Glucose 93 Calcium 10.3 Phosphorus 3.2 Magnesium 2.2 Total Bilirubin 0.8 AST 23 ALT 20 Alkaline Phosphatase 92 Total Protein 7.1 Albumin 3.6 Globulin 3.5 Albumin/Globulin Ratio 1.0 L Triglycerides 107 Cholesterol 140 LDL Cholesterol Direct 75 HDL Cholesterol 37 Assessment & Plan - Assessment and Plan (Free Text) Plan: Pt seen and examined by me. I have reviewed the note of the bio medical technician and I agree with it. I have discussed the assessment and plan with the resident. I have reviewed the medications and the last labs. Pt with delirium. It has improved. I have increased the Coumadin dosage due to low INR. No signs of infection. Will D/C back to [facility].
[2018-11-01 09:33] LABS: ALBUMIN 3.6 g/dL (3.0-4.8); ALT/SGPT 20 U/L (7-56); AST/SGOT 23 U/L (14-36); BLOOD UREA NITROGEN 19 mg/dL (7-21); CALCIUM 10.3 mg/dL (8.4-10.5); GFR NON-AFRICAN AMERICAN > 60
[2018-11-01 10:51] LABS: HEMOGLOBIN 13.4 g/dL (12.0-16.0); MEAN CELL VOLUME 91.6 fl (80.0-105.0); MEAN CORPUSCULAR HEMOGLOBIN 30.6 pg (25.0-35.0); MEAN CORPUSCULAR HGB CONC 33.4 g/dl (31.0-37.0); MEAN PLATELET VOLUME 10.9 fl (7.0-11.0); RBC 4.38 10^6/uL (3.5-6.1); RED CELL DISTRIBUTION WIDTH 16.1 % (11.5-14.5); WHITE BLOOD COUNT 10.2 10^3/uL (4.5-11.0)
--- NOTE | 2018-11-01 11:13 | CP.PCM.APN ---
Subjective - Date & Time of Evaluation Date of Evaluation: 11/01/18 Time of Evaluation: 09:40 - Subjective Subjective: pt seen lying in bed, NAD, pt reports feeling weak and tired. Pt offers no other complaints at this time. denies sob/cp/n/v Objective - Vital Signs/Intake and Output Vital Signs (last 24 hours): Temp Pulse Resp BP Pulse Ox 97.4 F L 110 H 20 133/85 97 11/01/18 06:00 11/01/18 06:00 11/01/18 06:00 11/01/18 06:00 11/01/18 06:00 Intake and Output: 11/01/18 11/01/18 06:59 18:59 Intake Total 360 Output Total 2 Balance 358 - Medications Medications: Current Medications Acetaminophen (Tylenol 325mg Tab) 650 mg PO Q4H PRN PRN Reason: Pain, moderate (4-7) Aspirin (Ecotrin) 81 mg PO DAILY [facility] Atorvastatin Calcium (Lipitor) 40 mg PO DIN JAMES Docusate Sodium (Colace) 100 mg PO TID JAMES Donepezil HCl (Aricept) 5 mg PO HS [facility] Last Admin: 10/31/18 21:49 Dose: 5 mg Losartan Potassium (Cozaar) 50 mg PO DAILY [facility] Metoprolol Tartrate (Lopressor) 25 mg PO BID JAMES Pantoprazole Sodium (Protonix Ec Tab) 40 mg PO 0600 [facility] Last Admin: 11/01/18 05:29 Dose: 40 mg Warfarin Sodium (Coumadin) 2 mg PO 1800 [facility]; Protocol - Labs Labs: 11/01/18 10:40 11/01/18 08:30 PT 16.6 SECONDS (9.4-12.5) H 10/31/18 13:00 INR 1.47 10/31/18 13:00 APTT 34.0 Seconds (26.9-38.3) 10/31/18 13:00 - Constitutional Appears: No Acute Distress, Chronically Ill - Head Exam Head Exam: NORMOCEPHALIC - Eye Exam Eye Exam: Normal appearance Pupil Exam: PERRL - ENT Exam ENT Exam: Mucous Membranes Moist - Respiratory Exam Respiratory Exam: Decreased Breath Sounds, NORMAL BREATHING PATTERN - Cardiovascular Exam Cardiovascular Exam: Irregular Rhythm, +S1, +S2 - GI/Abdominal Exam GI & Abdominal Exam: Soft, Normal Bowel Sounds - Extremities Exam Extremities Exam: Normal Capillary Refill - Neurological Exam Neurological Exam: Alert, Awake - Psychiatric Exam Psychiatric exam: Normal Affect - Skin Skin Exam: Dry, Intact (pt reprts left side weakness from prior cva ) Assessment and Plan - Assessment and Plan (Free Text) Assessment: ITS Impressions Head CT 10/31/18 12:45 IMPRESSION: No acute intracranial abnormalities. No significant findings to account for the clinical presentation. No significant interval change compared to the prior examination(s). Chest X-Ray 10/31/18 12:46 IMPRESSION: No active disease. No significant interval change compared to the prior examination(s). 83 yr old white female with pmh sig for cad with stents, chronic afib on coumadin, chf, dementia, herpetic neuralgia, chroonic let ankle fx who presented form [facility] where she was found to be difficult to arouse. pt was sent for further evaluation. per discussion with the rn pt also had 5 beats of NSVT this am. Pt K and mg noted in normal limits. Pt on BBtherapy as well as Asa and statin therapy. will continnue to follow clinical course. Plan: pt for transfer back to [facility] at [facility] per discussion with pmd/resident who will discuss with SW. Will continue to follow BPCI/TIC - BPCIA/TIC Educated pt/family on BPCIA/CIR/Med to Bed Programs: N/A Flyers given, including [facility] Beneficiary letter: N/A Pt/family verbalized understanding & agreed to program: N/A
[2018-11-01 11:59] LABS: HDL CHOLESTEROL 37 mg/dL (29-60)
[2018-11-01 12:09] LABS: LDL CHOLESTEROL 75 mg/dL (0-129)
[2018-11-01 12:31] VITALS: BP 122/70; RESP 18; TEMP 98
[2018-11-01 19:06] VITALS: PULSE 61
--- NOTE | 2018-11-02 08:22 | HP ---
DATE OF EXAM: 11/01/2018 SUBJECTIVE: The patient is seen and examined. I do agree with the note of the medical hospital sales. I have gone over the plan of care. The patient is on Aricept. We want to continue with Coumadin for anticoagulation. I have increased the dosage of the patient of Lipitor for dyslipidemia. She had an OR episode of an altered mental status and it may be delirium. She continues to have left-sided arm and leg weakness. The patient had an acute CVA. She is going to continue her Lipitor for dyslipidemia. She is on a heart-healthy diet. The patient will be discharged back to [facility]. Moreno Lazo MD
== END 2018-11-01 18:56 ==
LOC: ED 12:21 → INTOOBSV 15:24 → ERH 15:24 → 2RNO 20:51
PROVIDERS: ADMIT Internal Medicine Nephrology; ATTEND Internal Medicine Nephrology
DX: F03.90 Unspecified dementia, unspecified severity, without behavioral disturbance, psychotic disturbance, mood disturbance, and anxiety (principal); I48.2 Chronic atrial fibrillation; I50.9 Heart failure, unspecified; B02.29 Other postherpetic nervous system involvement; D72.829 Elevated white blood cell count, unspecified; E78.00 Pure hypercholesterolemia, unspecified; E78.5 Hyperlipidemia, unspecified; H91.90 Unspecified hearing loss, unspecified ear; I13.0 Hypertensive heart and chronic kidney disease with heart failure and stage 1 through stage 4 chronic kidney disease, or unspecified chronic kidney disease; I25.10 Atherosclerotic heart disease of native coronary artery without angina pectoris; N18.9 Chronic kidney disease, unspecified; N20.0 Calculus of kidney; S82.892A Other fracture of left lower leg, initial encounter for closed fracture; Z79.01 Long term (current) use of anticoagulants; Z87.01 Personal history of pneumonia (recurrent); Z87.440 Personal history of urinary (tract) infections; Z87.442 Personal history of urinary calculi; Z95.5 Presence of coronary angioplasty implant and graft; I63.9 Cerebral infarction, unspecified
CPT/HCPCS: 36415; 70450; 71045; 80053; 80061; 81003; 82550; 82803; 83605; 83615; 83735; 84100; 84484; 85025; 85027; 85610; 85730; 87040; 87086; 92610; 93005; 99285; G0378; J7040

== ENCOUNTER 2018-11-03 17:36 | Inpatient (IN) | payer MEDICARE ==
[2018-11-03 17:46] VITALS: BMI 31.2
--- NOTE | 2018-11-03 18:53 | ED PDOC ---
Arrival/HPI - General Chief Complaint: Altered Mental Status Time Seen by Provider: 11/03/18 17:55 Historian: Patient - History of Present Illness Narrative History of Present Illness (Text): 11/03/18 17:55 Latrice Christine is an 83 year old female, with a past medical history of CVA last week, CAD s/p stent placement, chronic A-fib on Warfarin, CHF with preserved ejection fraction, nephrolithiasis, dementia, and post-herpetic neuralgia, who is sent from [facility] for altered mental status s/p syncopal episode and seizure like symptoms. Patient was noted to be drooling with eyes focused after syncopal episode. Patient was also noted to be speaking less after episode. Patient states she currently feels weak. Patient visited the emergency department 3 days ago for CVA. Patient denies fevers, chills, headache, d izziness, chest pain, shortness of breath, dyspnea on exertion, cough, abdominal pain, nausea, vomiting, diarrhea, dysuria, back pain, neck pain, or any other complaint. PMD: Moreno Hassan Symptom Onset: Sudden Symptom Course: Unchanged (altered mental status unchanged), Resolved (syncopal episode and seizure resolved ) Activities at Onset: Light Context: Home Past Medical History - Provider Review Nursing Documentation Reviewed: Yes - Past History Past History: No Previous - Infectious Disease Hx of Infectious Diseases: None - Reproductive Menopause: Yes - Cardiac Hx Cardiac Disorders: Yes Hx Cardiac Arrhythmia: Yes (Afib on coumadin) Hx Congestive Heart Failure: Yes Hx Hypertension: Yes - Pulmonary Hx Respiratory Disorders: Yes Hx Pneumonia: Yes - Neurological Hx Neurological Disorder: Yes HX Cerebrovascular Accident: Yes Hx Dementia: Yes Hx Dizziness: Yes - HEENT Hx HEENT Disorder: Yes Other/Comment: Hard of hearing - Renal Hx Renal Disorder: Yes (renal disease) Hx Kidney Stones: Yes - Endocrine/Metabolic Hx Endocrine Disorders: No Hx Diabetes Mellitus Type 1: No Hx Diabetes Mellitus Type 2: No Hx Hypothyroidism: No - Hematological/Oncological Hx Blood Disorders: No - Integumentary Hx Dermatological Disorder: Yes - Musculoskeletal/Rheumatological Hx Musculoskeletal Disorders: Yes Hx Falls: Yes Hx Fractures: Yes (left ankle fracture) - Gastrointestinal Hx Gastrointestinal Disorders: No - Genitourinary/Gynecological Hx Genitourinary Disorders: Yes Hx Incontinence: Yes Hx Urinary Tract Infection: Yes - Psychiatric Hx Psychophysiologic Disorder: No Hx Substance Use: No - Surgical History Hx Coronary Stent: Yes - Anesthesia Hx Anesthesia Reactions: No Hx Malignant Hyperthermia: No - Suicidal Assessment Feels Threatened In Home Enviroment: No Family/Social History - Physician Review Nursing Documentation Reviewed: Yes Family/Social History: No Known Family HX Smoking Status: Never Smoked Hx Alcohol Use: No Hx Substance Use: No Hx Substance Use Treatment: No Allergies/Home Meds Allergies/Adverse Reactions: Allergies No Known Allergies Allergy (Verified 11/03/18 17:40) Home Medications: Home Meds Medication Instructions Recorded Confirmed Acetaminophen [Tylenol 325mg tab] 650 mg PO Q6 PRN 11/01/18 11/03/18 Acetaminophen [Tylenol 325mg tab] 650 mg PO Q6 PRN 11/01/18 11/03/18 Docusate [Colace] 200 mg PO HS 11/01/18 11/03/18 Warfarin [Coumadin] 2 mg PO 1800 11/03/18 11/03/18 Review of Systems - Physician Review All systems were reviewed & negative as marked: Yes - Review of Systems Constitutional: Other (generalized weakness) Neurological: Seizure (seizure symptoms ), Other (syncopal episode). absent: Headache Physical Exam - Physical Exam Narrative Physical Exam (Text): 11/03/18 17:55 Constitutional: No acute distress. Head: Normocephalic. Atraumatic. Eyes: PERRL. ENT: Moist mucous membranes. Neck: Supple. Cardiovascular: Regular rate. Chest: No tenderness. Respiratory: Clear to auscultation bilaterally. GI: Soft. Nontender. Nondistended. Back: No CVA tenderness. Musculoskeletal: Left sided weakness. Left ankle deformity consistent with fracture. Sensation to leg touch intact bilaterally. No tenderness or swelling of extremities. Skin: No rash. Neurologic: Alert. Facial droop on left side. Psychiatric: Oriented to person and place. Vital Signs Reviewed: Yes Vital Signs Temp Pulse Resp BP Pulse Ox 11/03/18 17:36 99 F 73 16 163/70 H 96 Temperature: Afebrile Blood Pressure: Hypertensive Pulse: Regular Respiratory Rate: Normal Appearance: Positive for: Well-Appearing, Non-Toxic, Comfortable Pain Distress: None Mental Status: Positive for: Alert and Oriented X 3 Finger Stick Blood Glucose: 129 Medical Decision Making ED Course and Treatment: 11/03/18 17:55 Impression: Patient is an 83 year old female sent from [facility] for AMS after seizure like symptoms and syncopal episode today. Patient had CVA last week. Differential Diagnosis included but are not limited to: syncope, seizure, UTI Plan: -- CT Head w/o contrast -- EKG -- Chest X-Ray One View -- Urinalysis -- Reassess and disposition Progress Notes: 11/03/18 20:23 CT head w/o contrast 1. No acute intracranial abnormality. 2. Moderate age-appropriate diffuse cerebral/cerebellar atrophy. 3. Severe chronic microvascular disease. 4. Extensive atherosclerotic vascular plaquing. Dr. Lazo accepts patient to his service. - RAD Interpretation Radiology Orders: 11/03/18 18:51 HEAD W/O CONTRAST [CT] Stat CHEST PORTABLE [RAD] Stat - Scribe Statement The provider has reviewed the documentation as recorded by the Scribe Pola Renteria All medical record entries made by the Scribe were at my direction and personally dictated by me. I have reviewed the chart and agree that the record accurately reflects my personal performance of the history, physical exam, medical decision making, and the department course for this patient. I have also personally directed, reviewed, and agree with the discharge instructions and disposition. Disposition/Present on Arrival - Present on Arrival Any Indicators Present on Arrival: No History of DVT/PE: No History of Uncontrolled Diabetes: No Urinary Catheter: No History of Decub. Ulcer: No History Surgical Site Infection Following: None - Disposition Have Diagnosis and Disposition been Completed?: Yes Diagnosis: UTI (urinary tract infection), Syncope Disposition: HOSPITALIZED Disposition Time: 20:06 Patient Plan: Observation, Telemetry Condition: FAIR
[2018-11-03 19:13] LABS: BASO # 0.03 K/mm3 (0.0-2.0); BASO % 0.3 % (0.0-3.0); EOS # 0.1 (0.0-0.7); EOS % 0.6 % (1.5-5.0); HEMOGLOBIN 13.9 g/dL (12.0-16.0); LYMPH # 1.9 (1.2-3.4); MEAN CELL VOLUME 91.1 fl (80.0-105.0); MEAN CORPUSCULAR HEMOGLOBIN 30.8 pg (25.0-35.0); MEAN CORPUSCULAR HGB CONC 33.8 g/dl (31.0-37.0); MEAN PLATELET VOLUME 10.9 fl (7.0-11.0); MONO # 0.8 (0.1-0.6); MONO % 6.9 % (1.0-6.0); RBC 4.51 10^6/uL (3.5-6.1); RED CELL DISTRIBUTION WIDTH 16.5 % (11.5-14.5)
[2018-11-03 19:17] LABS: INR 1.66; PARTIAL THROMBOPLASTIN TIME 34.3 Seconds (26.9-38.3); PROTHROMBIN TIME 18.4 SECONDS (9.4-12.5)
[2018-11-03 19:29] LABS: TROPONIN I < 0.01 ng/mL
[2018-11-03 19:54] LABS: ALB/GLOB RATIO 1.1 (1.1-1.8); ALT/SGPT 12 U/L (7-56); AST/SGOT 24 U/L (14-36); BLOOD UREA NITROGEN 20 mg/dL (7-21); CALCIUM 10.3 mg/dL (8.4-10.5); GFR NON-AFRICAN AMERICAN 60
[2018-11-03 20:32] LABS: URINE BILIRUBIN NEGATIVE (NEGATIVE); URINE BLOOD NEGATIVE (NEGATIVE); URINE GLUCOSE (UA) NEGATIVE (NEGATIVE); URINE LEUKOCYTE ESTERASE MODERATE Leu/uL (NEGATIVE); URINE PROTEIN NEGATIVE mg/dL (<30 mg/dL); URINE UROBILINOGEN 0.2 E.U./dL (<1 E.U./dL)
[2018-11-03 20:33] LABS: URINE APPEARANCE SLIGHT-CLOUDY (CLEAR); URINE COLOR YELLOW (YELLOW)
[2018-11-03 20:36] LABS: URINE BACTERIA MANY /hpf; URINE RBC 0 - 2 /hpf (0-2)
[2018-11-03] MEDS ORDERED: cefTRIAXone 1 gm 1 GM/100 ML BAG IVPB STA (20:37)
--- NOTE | 2018-11-03 21:53 | CARD ---
APPROVED REPORT Date of service: 11/03/2018 EKG Measurement Heart [id number] <Conclusion> Atrial fibrillation with slow ventricular response with a competing junctional pacemaker Possible Anterior infarct, age undetermined Diffuse NDSTT abnormalities Abnormal ECG
[2018-11-03] MEDS ORDERED: Influenza Vaccine 60 mcg/0.5 mL SYR (4YR UP) IM ONE (22:44)
[2018-11-03] MEDS ORDERED: Pneumococcal 23-Valent Vaccine IM ONE (22:44)
--- NOTE | 2018-11-04 08:27 | CT ---
Date of service: 11/03/2018 PROCEDURE: CT HEAD WITHOUT CONTRAST. HISTORY: syncope COMPARISON: None available. TECHNIQUE: Axial computed tomography images were obtained through the head/brain without intravenous contrast. Radiation dose: Total exam DLP = 940.86 mGy-cm. This CT exam was performed using one or more of the following dose reduction techniques: Automated exposure control, adjustment of the mA and/or kV according to patient size, and/or use of iterative reconstruction technique. FINDINGS: HEMORRHAGE: No intracranial hemorrhage. BRAIN: No mass effect or edema. Atrophy and chronic periventricular white matter ischemic disease. VENTRICLES: Unremarkable. No hydrocephalus. CALVARIUM: Unremarkable. PARANASAL SINUSES: Unremarkable as visualized. No significant inflammatory changes. MASTOID AIR CELLS: Unremarkable as visualized. No inflammatory changes. OTHER FINDINGS: None. IMPRESSION: No acute hemorrhage.
--- NOTE | 2018-11-04 09:34 | RAD ---
Date of service: 11/03/2018 PROCEDURE: CHEST RADIOGRAPH, 1 VIEW HISTORY: syncope COMPARISON: 10/31/2018 FINDINGS: LUNGS: Clear. PLEURA: No pneumothorax or pleural fluid seen. CARDIOVASCULAR: Aortic calcification mild cardiomegaly OSSEOUS STRUCTURES: No significant abnormalities. VISUALIZED UPPER ABDOMEN: Normal. OTHER FINDINGS: None. IMPRESSION: No active disease.
[2018-11-04] MEDS: cefTRIAXone 1 gm 1 GM/100 ML BAG IVPB SCH (12:56)
--- NOTE | 2018-11-04 12:57 | CP.PCM.HP ---
<Edward Claire - Last Filed: 11/04/18 13:01> History of Present Illness - History of Present Illness History of Present Illness: 83 year old female with past medical history of CAD s/p stent placement, chronic A-fib on Warfarin, CHF with preserved ejection fraction, nephrolithiasis, dementia, post-herpetic neuralgia, chronic left ankle fracture, and recent ischemic CVA presents to the hospital after having a syncopal episode at [facility] rehab. Patient was recently admitted for AMS and ischemic CVA. Patient had syncopal episode at rehab, but did not hit her head. Patient was noted to be confused afterward and was sent to the hospital. Currently, patient is oriented x3. Patient does admit to feeling weak. Patient denies chest pain, shortness of breath, nausea, vomiting, fever, chills, dysuria, numbness, tingling. Medical Hx: As above Surgical Hx: Ankle surgery Family Hx: Denies Social Hx: Denies alcohol, tobacco, and illicit drug use. Lives with Medications: Reviewed, as per MAR Allergies: NKDA Present on Admission - Present on Admission Any Indicators Present on Admission: No Review of Systems - Review of Systems Review of Systems: 12 point ROS as per hpi, otherwise negative Past Patient History - Infectious Disease Hx of Infectious Diseases: None - Past Social History Smoking Status: Unknown If Ever Smoked - CARDIAC Hx Cardiac Disorders: Yes (CAD) Hx Cardia Arrhythmia: Yes (Afib on coumadin) Hx Congestive Heart Failure: Yes Hx Hypercholesterolemia: Yes Hx Hypertension: Yes Hx Peripheral Edema: Yes - PULMONARY Hx Respiratory Disorders: Yes Hx Pneumonia: Yes - NEUROLOGICAL Hx Neurological Disorder: Yes (SYNCOPE 11-03-18) HX Cerebrovascular Accident: Yes (LEFT SIDED WEAKNESS,FACIAL DROOP) Hx Dementia: Yes Hx Dizziness: Yes Other/Comment: POST HERPETIC NEURALGIA- - HEENT Hx HEENT Problems: Yes (BLURRY VISION BOTH EYES) Other/Comment: Hard of hearing - RENAL Hx Chronic Kidney Disease: Yes (renal disease) Hx Kidney Stones: Yes Hx Neurogenic Bladder: Yes (URETERAL STONE) - ENDOCRINE/METABOLIC Hx Endocrine Disorders: No Hx Diabetes Mellitus Type 1: No Hx Diabetes Mellitus Type 2: No Hx Hypothyroidism: No - HEMATOLOGICAL/ONCOLOGICAL Hx Blood Disorders: Yes Hx Shingles: Yes (POST HERPETIC NEURALGIA) - INTEGUMENTARY Hx Dermatological Problems: Yes - MUSCULOSKELETAL/RHEUMATOLOGICAL Hx Musculoskeletal Disorders: Yes (SCIATICA,LUMBAR RADICULOPATHY) Hx Falls: Yes Hx Fractures: Yes (left ankle fracture) Hx Osteoporosis: Yes Hx Spinal Stenosis: Yes Hx Unsteady Gait: Yes - GASTROINTESTINAL Hx Gastrointestinal Disorders: Yes (DYSPHAGIA-PUREED DIET) HX Swallowing Problems: Yes - GENITOURINARY/GYNECOLOGICAL Hx Genitourinary Disorders: Yes Hx Incontinence: Yes Hx Urinary Tract Infection: Yes - PSYCHIATRIC Hx Psychophysiologic Disorder: No Hx Substance Use: No - SURGICAL HISTORY Hx Surgeries: Yes (CARDIAC STENT) Hx Coronary Stent: Yes Hx Mastectomy: No - ANESTHESIA Hx Anesthesia Reactions: No Hx Malignant Hyperthermia: No Meds Allergies/Adverse Reactions: Allergies Allergy/AdvReac Type Severity Reaction Status Date / Time No Known Allergies Allergy Verified 11/03/18 20:59 Physical Exam - Constitutional Appears: Non-toxic, No Acute Distress - Head Exam Head Exam: ATRAUMATIC, NORMAL INSPECTION, NORMOCEPHALIC - Eye Exam Eye Exam: EOMI, Normal appearance - ENT Exam ENT Exam: Mucous Membranes Moist - Respiratory Exam Respiratory Exam: Decreased Breath Sounds, NORMAL BREATHING PATTERN - Cardiovascular Exam Cardiovascular Exam: Irregular Rhythm, +S1, +S2 - GI/Abdominal Exam GI & Abdominal Exam: Normal Bowel Sounds, Soft. absent: Tenderness - Extremities Exam Extremities exam: Positive for: normal inspection. Negative for: pedal edema - Neurological Exam Neurological exam: Alert, Oriented x3 Additional comments: Muscle strength on left 1/5 - Psychiatric Exam Psychiatric exam: Normal Affect, Normal Mood - Skin Skin Exam: Intact, Normal Color, Warm Results - Vital Signs Recent Vital Signs: Last Vital Signs Temp 97.5 F L 11/04/18 05:46 Pulse 76 11/04/18 10:49 Resp 20 11/04/18 05:46 BP 161/95 H 11/04/18 10:49 Pulse Ox 97 11/04/18 05:46 - Labs Result Diagrams: 11/03/18 18:10 11/03/18 18:10 Labs: Laboratory Results - last 24 hr 11/03/18 11/03/18 11/03/18 17:54 18:10 18:10 WBC 12.0 H RBC 4.51 Hgb 13.9 Hct 41.1 MCV 91.1 MCH 30.8 MCHC 33.8 RDW 16.5 H Plt Count 214 MPV 10.9 Neut % (Auto) 76.2 H Lymph % (Auto) 16.0 L Keith % (Auto) 6.9 H Eos % (Auto) 0.6 L Baso % (Auto) 0.3 Lymph # (Auto) 1.9 Keith # (Auto) 0.8 H Eos # (Auto) 0.1 Baso # (Auto) 0.03 Absolute Neuts (auto) 9.13 H PT 18.4 H INR 1.66 APTT 34.3 Sodium Potassium Chloride Carbon Dioxide Anion Gap BUN Creatinine Est GFR ( Amer) Est GFR (Non-Af Amer) POC Glucose (mg/dL) 129 H Random Glucose Calcium Total Bilirubin AST ALT Alkaline Phosphatase Total Creatine Kinase Troponin I Total Protein Albumin Globulin Albumin/Globulin Ratio Urine Color Urine Appearance Urine pH Ur Specific Kinney Urine Protein Urine Glucose (UA) Urine Ketones Urine Blood Urine Nitrate Urine Bilirubin Urine Urobilinogen Ur Leukocyte Esterase Urine RBC Urine WBC Ur Epithelial Cells Urine Bacteria 11/03/18 11/03/18 18:10 20:27 WBC RBC Hgb Hct MCV MCH MCHC RDW Plt Count MPV Neut % (Auto) Lymph % (Auto) Keith % (Auto) Eos % (Auto) Baso % (Auto) Lymph # (Auto) Keith # (Auto) Eos # (Auto) Baso # (Auto) Absolute Neuts (auto) PT INR APTT Sodium 139 Potassium 3.8 Chloride 101 Carbon Dioxide 28 Anion Gap 14 BUN 20 Creatinine 0.9 Est GFR ( Amer) > 60 Est GFR (Non-Af Amer) 60 POC Glucose (mg/dL) Random Glucose 111 H Calcium 10.3 Total Bilirubin 0.4 AST 24 ALT 12 Alkaline Phosphatase 88 Total Creatine Kinase 32 L Troponin I < 0.01 Total Protein 7.5 Albumin 4.0 Globulin 3.6 Albumin/Globulin Ratio 1.1 Urine Color Yellow Urine Appearance Slight-cloudy Urine pH 6.0 Ur Specific Kinney >= 1.030 Urine Protein Negative Urine Glucose (UA) Negative Urine Ketones Negative Urine Blood Negative Urine Nitrate Positive H Urine Bilirubin Negative Urine Urobilinogen 0.2 Ur Leukocyte Esterase Moderate H Urine RBC 0 - 2 Urine WBC 10 - 15 H Ur Epithelial Cells 1 - 3 Urine Bacteria Many Assessment & Plan - Assessment and Plan (Free Text) Plan: Syncope vs Seizure UTI Ischemic stroke CAD s/p stent placement Chronic A-fib CHF with preserved ejection fraction Dementia Chronic left ankle fracture Patient admitted for syncopal episode vs seizure. Head CT reviewed, no acute pathology noted. EKG reviewed which showed atrial fibrillation. Chest x-ray reviewed with no active disease. Will obtain Cardiology and Neurology evaluation is pending. Patient will be started on Keppra and Brain MRI will be ordered as per discussion with neurologist. We will also obtain an EEG. Lab work reviewed, leukocytosis noted. INR also noted to be subtherapeutic, will increase Warfarin dose to 3 mg daily. Will recheck labs in AM. UA also reviewed, which reveals UTI. Will start Rocephin for UTI and follow cultures. Patient will continue her ASA and plavix for CAD. Patient will continue Losartan and Metoprolol for CHF. Patient will continue Aricept for Dementia. Patient will continue Lipitor for her ischemic stroke. Will continue to monitor patient carefully. Alethea, PGY-3 <Moreno Lazo S - Last Filed: 11/04/18 13:22> Results - Vital Signs Recent Vital Signs: Last Vital Signs Temp 97.5 F L 11/04/18 05:46 Pulse 76 11/04/18 10:49 Resp 20 11/04/18 05:46 BP 161/95 H 11/04/18 10:49 Pulse Ox 97 11/04/18 05:46 - Labs Result Diagrams: 11/03/18 18:10 11/03/18 18:10 Labs: Laboratory Results - last 24 hr 11/03/18 11/03/18 11/03/18 17:54 18:10 18:10 WBC 12.0 H RBC 4.51 Hgb 13.9 Hct 41.1 MCV 91.1 MCH 30.8 MCHC 33.8 RDW 16.5 H Plt Count 214 MPV 10.9 Neut % (Auto) 76.2 H Lymph % (Auto) 16.0 L Keith % (Auto) 6.9 H Eos % (Auto) 0.6 L Baso % (Auto) 0.3 Lymph # (Auto) 1.9 Keith # (Auto) 0.8 H Eos # (Auto) 0.1 Baso # (Auto) 0.03 Absolute Neuts (auto) 9.13 H PT 18.4 H INR 1.66 APTT 34.3 Sodium Potassium Chloride Carbon Dioxide Anion Gap BUN Creatinine Est GFR ( Amer) Est GFR (Non-Af Amer) POC Glucose (mg/dL) 129 H Random Glucose Calcium Total Bilirubin AST ALT Alkaline Phosphatase Total Creatine Kinase Troponin I Total Protein Albumin Globulin Albumin/Globulin Ratio Urine Color Urine Appearance Urine pH Ur Specific Kinney Urine Protein Urine Glucose (UA) Urine Ketones Urine Blood Urine Nitrate Urine Bilirubin Urine Urobilinogen Ur Leukocyte Esterase Urine RBC Urine WBC Ur Epithelial Cells Urine Bacteria 11/03/18 11/03/18 18:10 20:27 WBC RBC Hgb Hct MCV MCH MCHC RDW Plt Count MPV Neut % (Auto) Lymph % (Auto) Keith % (Auto) Eos % (Auto) Baso % (Auto) Lymph # (Auto) Keith # (Auto) Eos # (Auto) Baso # (Auto) Absolute Neuts (auto) PT INR APTT Sodium 139 Potassium 3.8 Chloride 101 Carbon Dioxide 28 Anion Gap 14 BUN 20 Creatinine 0.9 Est GFR ( Amer) > 60 Est GFR (Non-Af Amer) 60 POC Glucose (mg/dL) Random Glucose 111 H Calcium 10.3 Total Bilirubin 0.4 AST 24 ALT 12 Alkaline Phosphatase 88 Total Creatine Kinase 32 L Troponin I < 0.01 Total Protein 7.5 Albumin 4.0 Globulin 3.6 Albumin/Globulin Ratio 1.1 Urine Color Yellow Urine Appearance Slight-cloudy Urine pH 6.0 Ur Specific Kinney >= 1.030 Urine Protein Negative Urine Glucose (UA) Negative Urine Ketones Negative Urine Blood Negative Urine Nitrate Positive H Urine Bilirubin Negative Urine Urobilinogen 0.2 Ur Leukocyte Esterase Moderate H Urine RBC 0 - 2 Urine WBC 10 - 15 H Ur Epithelial Cells 1 - 3 Urine Bacteria Many Assessment & Plan - Assessment and Plan (Free Text) Plan: Pt seen and examined by me. I have reviewed the note of the veterinary medical officer and I agree with it. I have discussed the assessment and plan with the resident. I have reviewed the medications and the last labs.
--- NOTE | 2018-11-04 15:32 | PCM.EEG ---
Electroencephalogram Report - Electroencephalogram Report Procedure Date: 11/04/18 Medication: ASA, Lasix, Aricept, Warfarin Interpretation: Technical Information: This was a 16 -channel EEG, 1-channel EKG routine EEG performed using an [employer] machine. Electrodes were applied using the 10/20 international placement system. Start; 10;45 End; 11;30 Total; 45 min Clinical Information: syncope During resting wakefulness there was a symmetric posterior dominant rhythm at 8.5-9.5 Hz, 30-50 uV, which was reactive to eye opening and closing. Drowsiness (11;11) was associated with fragmentation of the posterior dominant rhythm and with slow roving eye movements. There was non specific 3 to 4 Hx bi temporal slowing seen. Hyperventilation was not performed. Photic stimulation was performed and there were no changes on the record. Focal abnormality; none ECG showed atrial fibrillation. Impression: This is a normal awake and drowsy electroencephalogram.
[2018-11-04] MEDS: POLYETHYLENE GLYCOL 3350 17 GM/Dose PACKET PO SCH (17:39)
--- NOTE | 2018-11-04 22:12 | CON ---
DATE: 11/04/2018 HISTORY OF PRESENT ILLNESS: This is an 83-year-old female with past medical history of CVA with left residual weakness and status post stent, chronic atrial fibrillation on Warfarin and nephrolithiasis, dementia, post herpetic neuralgia, came here from [facility] with altered mental status. The patient noted to be drooling and brought here to [facility] for weakness and altered mental status. I was called to evaluate the patient. PAST MEDICAL HISTORY: Coronary disease, stroke, dementia, and neuralgia. ALLERGIES: NO KNOWN DRUG ALLERGY. REVIEW OF SYSTEMS: A 10-point review of systems with residual left-sided weakness. PHYSICAL EXAMINATION NEUROLOGIC: Awake and oriented to self. Cranial nerves II through XII were tested. Pupils reactive. EOM intact. Visual field full. No facial asymmetry. Tongue midline. Motor examination; moves right side okay, the residual weakness of the left side from the stroke. Sensory appears intact. Cerebellar gait deferred. IMPRESSION AND PLAN: Intermittent confusional state, syncope, and urinary tract infection. Workup in progress. CAT scan of the head was done, which was negative for bleed. We will follow. Jose Mock MD
--- NOTE | 2018-11-04 22:24 | HP ---
DATE OF EXAM: 11/04/2018 HISTORY OF PRESENT ILLNESS: The patient was seen and examined. I do agree with the note of the medical sales specialist. I was involved in the plan of care. The patient was transferred from [facility] subacute rehab because she had an episode were she was just staring into space. She was not responding. This is a second episode that she has had. The patient had a similar episode a few days ago and was admitted to the hospital, evaluated and then discharged. The patient does not have a history of seizures. She has a history of a stroke that is fairly recent, it is an ischemic stroke with left arm weakness. The patient is at [facility] for rehab. The patient will need an MRI. I will also get Neurology and Cardiology to evaluate the patient. She may need to be started on Keppra for possible seizures. She is going to continue her Lipitor for dyslipidemia. She is on aspirin and Plavix for her coronary disease. She is going to continue with Coumadin for anticoagulation. The patient is on Losartan and metoprolol for her CHF. She does have a stent and so the Plavix will need to be continued. The patient's family is being updated by the resident. Moreno Lazo MD
--- NOTE | 2018-11-05 00:37 | CON ---
DATE: 11/04/2018 REQUESTING PHYSICIAN: Dr. Lazo. REASON FOR CONSULTATION: Possible syncope. HISTORY: This is an 83-year-old woman, known to me from recent hospital admission with a possible a cerebrovascular accident, transferred from [facility] with altered mental status and seizure-like activity. According to medical record, she was noted to be drooling and dysarthric and briefly unresponsive. She was brought to the emergency room and admitted. She is seen lying in bed on telemetry. She is arousable and answers questions in short sentences, but appears appropriate. CT of the head showed no evidence of acute abnormalities. She does have known coronary artery disease, status post prior PCI. She also has a history of chronic atrial fibrillation, maintained on warfarin. She has had prior diastolic congestive heart failure in the past. PAST HISTORY: Known for the problems mentioned above. She has a history of renal insufficiency, prior ankle fracture, and dementia. CURRENT MEDICATIONS: Included warfarin, Pepcid, Lipitor, Lasix, losartan, and metoprolol. ALLERGIES: REPORTEDLY NONE. SOCIAL HISTORY: She does not smoke or drink. FAMILY HISTORY: She cannot recall. REVIEW OF SYSTEMS: A 10-point review of systems is otherwise unremarkable. PHYSICAL EXAMINATION: GENERAL: She is a somewhat frail-appearing elderly woman. VITAL SIGNS: Her blood pressure is 160/96 with a pulse of 56, in atrial fibrillation, respirations of 14. She is afebrile. HEENT: Normocephalic, atraumatic. NECK: Supple. No JVD noted. CHEST: Few scattered rhonchi heard. HEART: Rhythm is irregular regular with a systolic murmur at left sternal border. ABDOMEN: Soft, nontender, normoactive bowel sounds. EXTREMITIES: No clubbing, cyanosis, or edema. SKIN: Warm and dry. PSYCHIATRIC: Somewhat flat affect. NEUROLOGIC: Unable to fully assess. DIAGNOSTIC DATA: White count 12.0, hemoglobin and hematocrit of 13.9 and 41.1 with platelet count of 214,000. PT/PTT 18.4 and 34.3 with INR of 1.66. Potassium 3.8, BUN and creatinine 20 and 0.9. Troponin is negative. Electrocardiogram reveals atrial fibrillation with controlled slow ventricular response, prior anterior wall myocardial infarction cannot be excluded, nonspecific ST-T abnormalities are present. Chest x-ray reveals increased cardiac silhouette with clear lung elizabeth. CT of the head revealed cerebral atrophy. IMPRESSION: 1. Recent unresponsiveness suspicious for seizure versus syncope. 2. Prior cerebrovascular accident. 3. Chronic atrial fibrillation with slow ventricular response. 4. Coronary artery disease, status post prior PCI. 5. History of dementia. RECOMMENDATIONS: Telemetry monitoring should continue for now. Coumadin therapy is advised. Maintenance of an INR between 2.0 and 2.5 would be appropriate. Rate control therapy with metoprolol will continue unless excessive bradycardia is noted. Neurology evaluation is pending. Her overall prognosis remains guarded, and given general condition, conservative care appears most appropriate. Thank you for this consultation, and I will be happy to follow along as needed. Joel Ochoa MD
[2018-11-05 09:02] LABS: HEMOGLOBIN 14.3 g/dL (12.0-16.0); MEAN CELL VOLUME 91.3 fl (80.0-105.0); MEAN PLATELET VOLUME 10.7 fl (7.0-11.0); RBC 4.61 10^6/uL (3.5-6.1); RED CELL DISTRIBUTION WIDTH 16.3 % (11.5-14.5)
[2018-11-05 09:16] LABS: INR 1.63; PROTHROMBIN TIME 18.4 SECONDS (9.4-12.5)
[2018-11-05] MEDS: POLYETHYLENE GLYCOL 3350 17 GM/Dose PACKET PO SCH ×2 (10:39→18:01)
[2018-11-05] MEDS: cefTRIAXone 1 gm 1 GM/100 ML BAG IVPB SCH (10:39)
--- NOTE | 2018-11-05 11:25 | MRI ---
Date of service: 11/05/2018 PROCEDURE: MRI BRAIN WITHOUT CONTRAST HISTORY: ams COMPARISON: MRI 10/26/2018 TECHNIQUE: Multiplanar, multisequence MR images of the brain were obtained without intravenous contrast enhancement. FINDINGS: HEMORRHAGE: None DWI: There is no change in the appearance of the acute or subacute infarct in the deep white matter of the right hemisphere. Patchy areas of restricted diffusion are seen. The abnormality is also seen on T2 and FLAIR imaging. BRAIN PARENCHYMA: As above VENTRICLES: Unremarkable. No hydrocephalus. CRANIUM: Unremarkable. ORBITS: Grossly unremarkable. PARANASAL SINUSES/MASTOIDS: Clear VASCULAR SYSTEM: Skull base flow voids intact. OTHER FINDINGS: None. IMPRESSION: There is no change in the appearance of the acute or subacute infarct in the deep white matter of the right hemisphere. Patchy areas of restricted diffusion are seen. The abnormality is also seen on T2 and FLAIR imaging.
--- NOTE | 2018-11-05 13:59 | CP.PCM.PN ---
<Edward Claire - Last Filed: 11/05/18 13:53> Subjective - Date & Time of Evaluation Date of Evaluation: 11/05/18 Time of Evaluation: 07:20 - Subjective Subjective: Patient seen and examined at bedside. Patient with no complaints at night. Denies chest pain, shortness of breath, nausea, vomiting, diarrhea, fever. Objective - Vital Signs/Intake and Output Vital Signs (last 24 hours): Temp Pulse Resp BP Pulse Ox 97.4 F L 70 18 175/83 H 97 11/05/18 12:00 11/05/18 12:00 11/05/18 12:00 11/05/18 12:00 11/04/18 05:46 Intake and Output: 11/05/18 11/05/18 06:59 18:59 Intake Total 150 Output Total 0 Balance 150 - Medications Medications: Current Medications Aspirin (Ecotrin) 81 mg PO DAILY [facility] Last Admin: 11/05/18 10:40 Dose: 81 mg Atorvastatin Calcium (Lipitor) 40 mg PO DIN [facility] Last Admin: 11/04/18 17:39 Dose: 40 mg Docusate Sodium (Colace) 200 mg PO HS [facility] Last Admin: 11/04/18 21:27 Dose: 200 mg Donepezil HCl (Aricept) 5 mg PO HS [facility] Last Admin: 11/04/18 21:27 Dose: 5 mg Furosemide (Lasix) 40 mg PO DAILY [facility] Last Admin: 11/05/18 10:39 Dose: 40 mg Ceftriaxone Sodium (Rocephin 1 Gram Ivpb) 1 gm in 100 mls @ 100 mls/hr IVPB D AILY [facility]; Protocol Last Admin: 11/05/18 10:39 Dose: 100 mls/hr Levetiracetam (Keppra) 500 mg PO BID [facility] Last Admin: 11/05/18 10:53 Dose: 500 mg Losartan Potassium (Cozaar) 50 mg PO DAILY [facility] Last Admin: 11/05/18 10:40 Dose: 50 mg Metoprolol Tartrate (Lopressor) 25 mg PO BID [facility] Last Admin: 11/05/18 10:40 Dose: 25 mg Polyethylene Glycol (Miralax) 17 gm PO BID [facility] Last Admin: 11/05/18 10:39 Dose: 17 gm Warfarin Sodium (Coumadin) 3 mg PO 1800 [facility] Last Admin: 11/04/18 17:39 Dose: 3 mg - Labs Labs: 11/05/18 08:30 11/03/18 18:10 PT 18.4 SECONDS (9.4-12.5) H 11/05/18 08:30 INR 1.63 11/05/18 08:30 APTT 34.3 Seconds (26.9-38.3) 11/03/18 18:10 - Constitutional Appears: Non-toxic, No Acute Distress - Head Exam Head Exam: ATRAUMATIC, NORMAL INSPECTION, NORMOCEPHALIC - ENT Exam ENT Exam: Mucous Membranes Moist - Respiratory Exam Respiratory Exam: Clear to Ausculation Bilateral, NORMAL BREATHING PATTERN - Cardiovascular Exam Cardiovascular Exam: RRR, +S1, +S2 - GI/Abdominal Exam GI & Abdominal Exam: Soft, Normal Bowel Sounds. absent: Tenderness - Extremities Exam Extremities Exam: Normal Inspection. absent: Pedal Edema - Neurological Exam Neurological Exam: Alert, Awake, Oriented x3 Neuro motor strength exam: Left Upper Extremity: 2/1, Right Upper Extremity: 5, Left Lower Extremity: 2/1, Right Lower Extremity: 5 - Psychiatric Exam Psychiatric exam: Flat Affect, Normal Mood - Skin Skin Exam: Dry, Intact, Warm Assessment and Plan - Assessment and Plan (Free Text) Plan: Syncope vs Seizure UTI Ischemic stroke CAD s/p stent placement Chronic A-fib CHF with preserved ejection fraction Dementia Chronic left ankle fracture Patient admitted for syncopal episode vs seizure. Patient evaluated by cardiology who recommend continuing medical therapy. Patient seen by neurology who recommend patient continue keppra. Brain MRI did not show any acute abnormalities, just previous CVA. EEG was found to be normal. Patient will continue on Rocephin for UTI, will follow up on urine cultures. INR subtherapeutic, will monitor INR and recheck tomorrow. Patient will continue her ASA and plavix for CAD. Patient will continue Losartan and Metoprolol for CHF. Patient will continue Aricept for Dementia. Patient will continue Lipitor for her ischemic stroke. Patient will be discharged tomorrow after culture and sensitivities return from urine culture. Will continue to monitor patient carefully. Alethea, PGY-3 <Moreno Lazo S - Last Filed: 11/05/18 14:49> Objective - Vital Signs/Intake and Output Vital Signs (last 24 hours): Temp Pulse Resp BP Pulse Ox 97.4 F L 70 18 175/83 H 97 11/05/18 12:00 11/05/18 12:00 11/05/18 12:00 11/05/18 12:00 11/04/18 05:46 Intake and Output: 11/05/18 11/05/18 06:59 18:59 Intake Total 150 Output Total 0 Balance 150 - Medications Medications: Current Medications Aspirin (Ecotrin) 81 mg PO DAILY [facility] Last Admin: 11/05/18 10:40 Dose: 81 mg Atorvastatin Calcium (Lipitor) 40 mg PO DIN [facility] Last Admin: 11/04/18 17:39 Dose: 40 mg Docusate Sodium (Colace) 200 mg PO HS [facility] Last Admin: 11/04/18 21:27 Dose: 200 mg Donepezil HCl (Aricept) 5 mg PO HS [facility] Last Admin: 11/04/18 21:27 Dose: 5 mg Furosemide (Lasix) 40 mg PO DAILY [facility] Last Admin: 11/05/18 10:39 Dose: 40 mg Ceftriaxone Sodium (Rocephin 1 Gram Ivpb) 1 gm in 100 mls @ 100 mls/hr IVPB DAILY [facility]; Protocol Last Admin: 11/05/18 10:39 Dose: 100 mls/hr Levetiracetam (Keppra) 500 mg PO BID [facility] Last Admin: 11/05/18 10:53 Dose: 500 mg Losartan Potassium (Cozaar) 50 mg PO DAILY [facility] Last Admin: 11/05/18 10:40 Dose: 50 mg Metoprolol Tartrate (Lopressor) 25 mg PO BID [facility] Last Admin: 11/05/18 10:40 Dose: 25 mg Polyethylene Glycol (Miralax) 17 gm PO BID [facility] Last Admin: 11/05/18 10:39 Dose: 17 gm Warfarin Sodium (Coumadin) 3 mg PO 1800 [facility] Last Admin: 11/04/18 17:39 Dose: 3 mg - Labs Labs: 11/05/18 08:30 11/03/18 18:10 PT 18.4 SECONDS (9.4-12.5) H 11/05/18 08:30 INR 1.63 11/05/18 08:30 APTT 34.3 Seconds (26.9-38.3) 11/03/18 18:10 Assessment and Plan - Assessment and Plan (Free Text) Plan: Pt seen and examined by me. I have reviewed the note of the lpn medical assistant and I agree with it. I have discussed the assessment and plan with the resident. I have reviewed the medications and the last labs.
--- NOTE | 2018-11-05 14:49 | PN ---
DATE: 11/05/2018 SUBJECTIVE: The patient is seen lying in bed on telemetry. She states she is comfortable at present time. She has had no significant dysrhythmias noted on the monitor. She is in atrial fibrillation with occasional slow rate, but no pauses greater than 3 seconds. CURRENT MEDICATIONS: Include Aricept, Coumadin, Cozaar, Ecotrin, Keppra, Lasix, Lipitor, metoprolol 25 mg b.i.d. and Rocephin. OBJECTIVE: GENERAL: She is a very elderly woman is comfortable at rest. VITAL SIGNS: Blood pressure 146/86 with pulse of 64 in atrial fibrillation, respirations are 14 and she is afebrile. HEENT: No JVD. CHEST: Few scattered rhonchi noted. HEART: PMI displaced laterally with systolic murmur at left sternal border. ABDOMEN: Soft, nontender with bowel sounds. EXTREMITIES: No edema. DIAGNOSTIC DATA: Potassium 14.0. Hemoglobin and hematocrit are 13.6 and 42.1 with platelet count of 103,000. MRI of the brain was performed and results are pending. EEG was reportedly unremarkable. IMPRESSION: 1. Recent altered mental status, unclear if this was a syncopal event or seizure, workup in progress. 2. Prior cerebrovascular accident. 3. Chronic atrial fibrillation. 4. Coronary disease status post prior percutaneous coronary intervention. 5. History of dementia. RECOMMENDATIONS: Conservative cardiac management is most appropriate at this time. If she has excessive slowing of her ventricular rate reduction in her metoprolol dose may be necessary. Maintenance of an INR between 2 and 2.5 would be appropriate at this time. I will continue to follow and make further recommendations as appropriate. Joel Ochoa MD LORIE
--- NOTE | 2018-11-05 17:14 | PN ---
DATE: 11/05/2018 SUBJECTIVE: The patient was seen and examined. I do agree with the note of the medical secretary. The patient's plan of care was discussed with the resident. The patient had possible seizures, has been placed on Keppra. She has a UTI and is being given antibiotics. The patient has gram-negative rods in the urine, but the cultures are pending. She is going to continue with aspirin and Plavix for her coronary artery disease. She has atrial fibrillation and is currently on anticoagulation. The patient is on losartan for her hypertension. She is going to be scheduled to discharge back to [facility] subacute rehab tomorrow. Moreno Lazo MD
[2018-11-06 00:17] VITALS: RESP 20; O2SAT 98
--- NOTE | 2018-11-06 09:12 | PN ---
DATE: 11/06/2018 SUBJECTIVE: The patient is seen lying in bed on telemetry. She is mildly confused. She is in no distress. MEDICATIONS: Her current medications include Aricept, Coumadin, losartan 50 mg daily, aspirin, Keppra, Lasix 40 mg daily, Lipitor, metoprolol 25 mg b.i.d., and Rocephin. OBJECTIVE: GENERAL: She is a very elderly woman who is comfortable at rest. VITAL SIGNS: Blood pressure is 140/78 with pulse of 70 in atrial fibrillation, occasional PVCs are noted. HEENT: No JVD. CHEST: Few scattered rhonchi. HEART: Soft tones present. ABDOMEN: Soft, nontender with bowel sounds. EXTREMITIES: No edema. DIAGNOSTIC DATA: Morning blood work is pending. IMPRESSION: 1. Recent altered mental status, possible syncope versus seizure. 2. History of cerebrovascular accident. 3. Chronic atrial fibrillation. 4. Coronary artery disease, status post prior percutaneous coronary intervention stable at present. 5. History of dementia. RECOMMENDATIONS: Conservative management at present time is advised. Continued anticoagulant therapy is advised as well. From a cardiac standpoint, she is stable for transfer to subacute facility at this time. I will be happy to see you in the future as needed. Joel Ochoa MD
[2018-11-06] MEDS: POLYETHYLENE GLYCOL 3350 17 GM/Dose PACKET PO SCH (09:24)
[2018-11-06] MEDS: cefTRIAXone 1 gm 1 GM/100 ML BAG IVPB SCH (09:24)
[2018-11-06] MEDS ORDERED: levETIRAcetam 500 mg/5ml UD cups PO SCH (09:30)
[2018-11-06 12:18] VITALS: BP 129/76; PULSE 70; TEMP 98.4
[2018-11-06] MEDS ORDERED: Cefpodoxime (Vantin) 100 mg Tab PO SCH (22:00)
--- NOTE | 2018-11-07 00:32 | DS ---
HOSPITAL COURSE: This is an 83-year-old female who comes from [facility] because of changes in mental status. It was felt that she may have had a seizure. The patient had a EEG and it was negative. She was placed on Keppra for possible seizures. She has not had any episodes while she is in the hospital. She currently feels well. She has a urine culture that shows gram-negative rods. The final results are pending. She has no complaints of any headaches or dizziness. No nausea or vomiting. If cultures results are finalized today, we will try to change to p.o. antibiotics and send the patient to subacute rehab at [facility]. PHYSICAL EXAMINATION: VITAL SIGNS: Temperature is 98.1, pulse of 70, blood pressure 140/78, and respirations 20. GENERAL: The patient is lying in bed, flat, comfortable. HEENT: No oral lesion. Anicteric sclerae. Moist mucosa. NECK: No JVD, adenopathy, or thyromegaly. CARDIOVASCULAR: S1 and S2, regular. No murmurs, rubs, or gallops. LUNGS: Clear to auscultation bilaterally. No wheeze, rales, or rhonchi. ABDOMEN: Bowel sounds are positive, soft, nontender and nondistended. EXTREMITIES: No cyanosis, clubbing or edema. ASSESSMENT: 1. Seizures, on Keppra. 2. Urinary tract infection, secondary to gram-negative rods. 3. Ischemic stroke of the right middle cerebral artery territory with left arm and leg weakness. 4. Coronary artery disease. 5. Dementia, Alzheimer's type. 6. Congestive heart failure secondary to diastolic dysfunction, stable. 7. Syncope. 8. Dyslipidemia. DISCHARGE PLAN: The patient is currently on Aricept for her dementia. She is going to continue with her Coumadin for anticoagulation for the atrial fibrillation. Her last INR was 1.6 and subtherapeutic. She had increase of her Coumadin dosage. She is now going to continue with Keppra. She is on Lasix daily. She is on Lipitor for dyslipidemia. She is receiving Rocephin. DIET: She is on a heart-healthy diet. Moreno Lazo MD
== END 2018-11-06 14:12 | DRG 100 ==
LOC: ED 17:36 → ERH 20:36 → 2RSO 23:50 → OBSVTOIN 11-05 12:52
PROVIDERS: ADMIT Internal Medicine Nephrology; ATTEND Internal Medicine Nephrology
DX: R56.9 Unspecified convulsions (principal); I63.511 Cerebral infarction due to unspecified occlusion or stenosis of right middle cerebral artery; N39.0 Urinary tract infection, site not specified; I69.354 Hemiplegia and hemiparesis following cerebral infarction affecting left non-dominant side; I50.32 Chronic diastolic (congestive) heart failure; B02.29 Other postherpetic nervous system involvement; I13.0 Hypertensive heart and chronic kidney disease with heart failure and stage 1 through stage 4 chronic kidney disease, or unspecified chronic kidney disease; E78.00 Pure hypercholesterolemia, unspecified; E78.5 Hyperlipidemia, unspecified; G30.9 Alzheimer's disease, unspecified; F02.80 Dementia in other diseases classified elsewhere, unspecified severity, without behavioral disturbance, psychotic disturbance, mood disturbance, and anxiety; H91.90 Unspecified hearing loss, unspecified ear; I25.10 Atherosclerotic heart disease of native coronary artery without angina pectoris; I48.2 Chronic atrial fibrillation; M81.0 Age-related osteoporosis without current pathological fracture; N18.9 Chronic kidney disease, unspecified; N20.0 Calculus of kidney; N31.9 Neuromuscular dysfunction of bladder, unspecified; Z79.01 Long term (current) use of anticoagulants; Z79.02 Long term (current) use of antithrombotics/antiplatelets; Z79.82 Long term (current) use of aspirin; Z87.01 Personal history of pneumonia (recurrent); Z87.440 Personal history of urinary (tract) infections; Z87.442 Personal history of urinary calculi; Z95.5 Presence of coronary angioplasty implant and graft; M54.16 Radiculopathy, lumbar region; R13.10 Dysphagia, unspecified; R32 Unspecified urinary incontinence; S82.892G Other fracture of left lower leg, subsequent encounter for closed fracture with delayed healing; D72.829 Elevated white blood cell count, unspecified; R55 Syncope and collapse; B96.20 Unspecified Escherichia coli [E. coli] as the cause of diseases classified elsewhere; B95.2 Enterococcus as the cause of diseases classified elsewhere

== ENCOUNTER 2018-11-18 01:51 | Observation (INO) | payer MEDICARE ==
[2018-11-18 01:52] VITALS: BMI 31.2
--- NOTE | 2018-11-18 02:05 | ED PDOC ---
Arrival/HPI - General Chief Complaint: Chest Pain Time Seen by Provider: 11/18/18 02:00 Historian: Patient, [facility] - History of Present Illness Narrative History of Present Illness (Text): 11/18/18 02:00 Latrice Christine is an 83 year old female, whose past medical history includes CAD s/p stent placement, chronic atrial fibrillation on Warfarin, CHF, dementia, post-herpetic neuralgia, CVA, and chronic left ankle fracture, who presents to the ED brought in by EMS transferred from [facility] complaining of chest pain. Patient states she has been experiencing mid-sternal chest heaviness for the past 2 days. Patient was noted to hypertensive and bradycardic while at the [facility] and received 2 sublingual Nitroglycerin and Aspirin 324mg in the field. Patient denies any fever, chills, shortness of breath, nausea, vomiting,headache, dizziness, or any other complaints. Time/Duration: < week (2 days) Symptom Onset: Gradual Symptom Course: Unchanged Activities at Onset: Light Context: Home (shelter) Past Medical History - Provider Review Nursing Documentation Reviewed: Yes - Past History Past History: No Previous - Infectious Disease Hx of Infectious Diseases: None - Cardiac Hx Cardiac Disorders: Yes (CAD) Hx Cardiac Arrhythmia: Yes (Afib on coumadin) Hx Congestive Heart Failure: Yes Hx Hypertension: Yes Hx Peripheral Edema: Yes - Pulmonary Hx Respiratory Disorders: Yes Hx Pneumonia: Yes - Neurological Hx Neurological Disorder: Yes (SYNCOPE 3-19) HX Cerebrovascular Accident: Yes (LEFT SIDED WEAKNESS,FACIAL DROOP) Hx Dementia: Yes Hx Dizziness: Yes Other/Comment: POST HERPETIC NEURALGIA- - HEENT Hx HEENT Disorder: Yes (BLURRY VISION BOTH EYES) Other/Comment: Hard of hearing - Renal Hx Renal Disorder: Yes (renal disease) Hx Kidney Stones: Yes Hx Neurogenic Bladder: Yes (URETERAL STONE) - Endocrine/Metabolic Hx Endocrine Disorders: No Hx Diabetes Mellitus Type 1: No Hx Diabetes Mellitus Type 2: No Hx Hypothyroidism: No - Hematological/Oncological Hx Blood Disorders: Yes Hx Shingles: Yes (POST HERPETIC NEURALGIA) - Integumentary Hx Dermatological Disorder: Yes - Musculoskeletal/Rheumatological Hx Musculoskeletal Disorders: Yes (SCIATICA,LUMBAR RADICULOPATHY) Hx Falls: Yes Hx Fractures: Yes (left ankle fracture) Hx Osteoporosis: Yes Hx Spinal Stenosis: Yes Hx Unsteady Gait: Yes - Gastrointestinal Hx Gastrointestinal Disorders: Yes (DYSPHAGIA-PUREED DIET) HX Swallowing Problems: Yes - Genitourinary/Gynecological Hx Genitourinary Disorders: Yes Hx Incontinence: Yes Hx Urinary Tract Infection: Yes - Psychiatric Hx Psychophysiologic Disorder: No Hx Substance Use: No - Surgical History Hx Coronary Stent: Yes Hx Mastectomy: No - Anesthesia Hx Anesthesia Reactions: No Hx Malignant Hyperthermia: No - Suicidal Assessment Feels Threatened In Home Enviroment: No Family/Social History - Physician Review Nursing Documentation Reviewed: Yes Family/Social History: Unknown Family HX Smoking Status: Unknown If Ever Smoked Hx Alcohol Use: No Hx Substance Use: No Hx Substance Use Treatment: No Allergies/Home Meds Allergies/Adverse Reactions: Allergies No Known Allergies Allergy (Verified 11/03/18 20:59) Home Medications: Home Meds Medication Instructions Recorded Confirmed Acetaminophen [Tylenol 325mg tab] 650 mg PO Q6 PRN 11/01/18 11/18/18 Docusate [Colace] 200 mg PO HS 11/01/18 11/18/18 Warfarin [Coumadin] 2 mg PO 1800 11/03/18 11/18/18 Polyethylene Glycol 3350 [Miralax] 17 gm PO BID 11/18/18 11/18/18 levETIRAcetam [Keppra] 500 mg PO BID 11/18/18 11/18/18 Review of Systems - Physician Review All systems were reviewed & negative as marked: Yes - Review of Systems Constitutional: Normal. absent: Fevers Eyes: Normal ENT: Normal Respiratory: Normal. absent: SOB, Cough Cardiovascular: Chest Pain Gastrointestinal: Normal. absent: Abdominal Pain, Diarrhea, Nausea, Vomiting Genitourinary Female: Normal. absent: Dysuria, Frequency, Hematuria, Urine Output Changes Musculoskeletal: Normal. absent: Back Pain, Neck Pain Skin: Normal. absent: Rash Neurological: Normal. absent: Headache, Dizziness Endocrine: Normal Hemo/Lymphatic: Normal Psychiatric: Normal Physical Exam Vital Signs Reviewed: Yes Temperature: Afebrile Blood Pressure: Normal Pulse: Regular Respiratory Rate: Normal Appearance: Positive for: Well-Appearing, Non-Toxic, Comfortable Pain Distress: None Mental Status: Positive for: Alert and Oriented X 3 - Systems Exam Head: Present: Atraumatic, Normocephalic Pupils: Present: PERRL Extroacular Muscles: Present: EOMI Conjunctiva: Present: Normal Mouth: Present: Moist Mucous Membranes Neck: Present: Normal Range of Motion Respiratory/Chest: Present: Clear to Auscultation, Good Air Exchange. No: Respiratory Distress, Accessory Muscle Use Cardiovascular: Present: Normal S1, S2, Irregular Rhythm (Irregular, regular rhythm). No: Murmurs Abdomen: No: Tenderness, Distention, Peritoneal Signs Back: Present: Normal Inspection Upper Extremity: Present: Normal Inspection. No: Cyanosis, Edema Lower Extremity: Present: NORMAL PULSES, Deformity (Chronic left ankle deformity), Neurovascularly Intact, Capillary Refill < 2 s. No: Edema, Tenderness, Swelling, Erythema, Temperature Abnormalties Neurological: Present: GCS=15, CN II-XII Intact, Speech Normal Skin: Present: Warm, Dry, Normal Color. No: Rashes Psychiatric: Present: Alert, Oriented x 3, Normal Insight, Normal Concentration Medical Decision Making ED Course and Treatment: 11/18/18 02:00 Impression: 83 year old female complaining of mid-sternal chest heaviness for the past 2 days. Plan: -- EKG -- Chest X-ray -- Labs, cardiac enzymes -- Reassess and disposition Prior Visits: Notes and results from previous visits were reviewed. Progress Notes: Reviewed EKG, a fib at 78 bpm. Occasional PVC. Non-specific ST/T wave changes. 11/18/18 03:21 Chest X-ray reviewed, shows no acute processes. 11/18/18 03:[address] Lazo, who is aware and agrees with plan. Accepts pt in to his service. Pt will go to telemetry observation for chest pain. - Lab Interpretations I have reviewed the lab results: Yes - RAD Interpretation Conversion Worker: ED Physician - EKG Interpretation Interpreted by ED Physician: Yes Type: 12 lead EKG - Scribe Statement The provider has reviewed the documentation as recorded by the Marlon Ray Provider Scribe Attestation: All medical record entries made by the Scribe were at my direction and personally dictated by me. I have reviewed the chart and agree that the record accurately reflects my personal performance of the history, physical exam, medical decision making, and the department course for this patient. I have also personally directed, reviewed, and agree with the discharge instructions and disposition. Disposition/Present on Arrival - Present on Arrival Any Indicators Present on Arrival: No History of DVT/PE: No History of Uncontrolled Diabetes: No Urinary Catheter: No History of Decub. Ulcer: No History Surgical Site Infection Following: None - Disposition Have Diagnosis and Disposition been Completed?: Yes Diagnosis: Chest pain Disposition: HOSPITALIZED Disposition Time: 03:28 Patient Plan: Observation Condition: STABLE Discharge Instructions (ExitCare): Chest Pain (ED) Referrals: Jose Donohue MD [Primary Care Provider] - Follow up with primary Forms: [employer] ([place])
[2018-11-18 02:42] LABS: HEMOGLOBIN 13.8 g/dL (12.0-16.0); MEAN CELL VOLUME 93.2 fl (80.0-105.0); MEAN CORPUSCULAR HEMOGLOBIN 30.4 pg (25.0-35.0); MEAN CORPUSCULAR HGB CONC 32.6 g/dl (31.0-37.0); MEAN PLATELET VOLUME 10.7 fl (7.0-11.0); RBC 4.54 10^6/uL (3.5-6.1); RED CELL DISTRIBUTION WIDTH 16.1 % (11.5-14.5)
[2018-11-18 02:47] LABS: ALB/GLOB RATIO 1.1 (1.1-1.8); ALBUMIN 3.9 g/dL (3.0-4.8); ALT/SGPT 30 U/L (7-56); AST/SGOT 34 U/L (14-36); BLOOD UREA NITROGEN 16 mg/dL (7-21); CALCIUM 10.3 mg/dL (8.4-10.5); GFR NON-AFRICAN AMERICAN > 60
[2018-11-18 02:48] LABS: PARTIAL THROMBOPLASTIN TIME 54.4 Seconds (26.9-38.3)
[2018-11-18 02:49] LABS: PROTHROMBIN TIME 44.8 SECONDS (9.4-12.5)
[2018-11-18 02:52] LABS: INR 4.04
[2018-11-18 02:56] LABS: TROPONIN I 0.01 ng/mL
--- NOTE | 2018-11-18 08:14 | RAD ---
Date of service: 11/18/2018 HISTORY: chest pain COMPARISON: Portable chest 11/03/2018. TECHNIQUE: 1 view obtained. FINDINGS: LUNGS: Limited linear atelectasis or fibrosis again seen the inferior lung zones bilaterally. No significant interval change. No active pulmonary disease. PLEURA: No significant pleural effusion identified, no pneumothorax apparent. CARDIOVASCULAR: Calcific atherosclerotic changes are seen related to the thoracic aorta. Normal cardiac size. No pulmonary vascular congestion. OSSEOUS STRUCTURES: No significant abnormalities. VISUALIZED UPPER ABDOMEN: Normal. OTHER FINDINGS: None. IMPRESSION: Limited linear atelectasis or fibrosis again noted at the bilateral bases though somewhat diminished. No interval acute cardiopulmonary disease appreciated.
--- NOTE | 2018-11-18 11:07 | CP.PCM.HP ---
<Edward Claire - Last Filed: 11/18/18 11:09> History of Present Illness - History of Present Illness History of Present Illness: 83 year old female with past medical history of CAD s/p stent placement, chronic A-fib on Warfarin, CHF with preserved ejection fraction, nephrolithiasis, dementia, post-herpetic neuralgia, chronic left ankle fracture, seizure disorder, and ischemic CVA with left sided weakness presents to the hospital for chest heaviness for 2 days. Patient was at [facility] for rehab. Patient said heaviness is left sided with no pain or radiation. Patient received ASA and nitroglycerin for pain in ambulance. Patient denies chest pain, shortness of breath, nausea, vomiting, fever, chills, dysuria, numbness, tingling. Medical Hx: As above Surgical Hx: Ankle surgery Family Hx: Denies Social Hx: Denies alcohol, tobacco, and illicit drug use. Lives with Medications: Reviewed, as per MAR Allergies: NKDA Present on Admission - Present on Admission Any Indicators Present on Admission: No Review of Systems - Review of Systems Review of Systems: 12 point ROS as per hpi, otherwise negative Past Patient History - Infectious Disease Hx of Infectious Diseases: None - Past Social History Smoking Status: Never Smoked - CARDIAC Hx Cardiac Disorders: Yes Hx Angina: No Hx Cardia Arrhythmia: Yes Hx Circulatory Problems: No Hx Congestive Heart Failure: Yes Hx Heart Murmur: No Hx Heart Transplant: No Hx Hypercholesterolemia: Yes Hx Hypertension: Yes Hx Internal Defibrillator: No Hx Mitral Valve Prolapse: No Hx Pacemaker: No Hx Peripheral Edema: Yes Hx Peripheral Vascular Disease: No - PULMONARY Hx Respiratory Disorders: Yes Hx Asthma: No Hx Bronchitis: No Hx Chronic Obstructive Pulmonary Disease (COPD): No Hx Emphysema: No Hx Pneumonia: Yes Hx Respiratory Aspiration: No Hx Respiratory Tract Infection: No Hx Sleep Apnea: No Hx Tuberculosis: No - NEUROLOGICAL Hx Neurological Disorder: Yes Hx Alzheimer's Disease: No HX Cerebrovascular Accident: Yes ((L) side weakness, facial droop) Hx Dementia: Yes Hx Dizziness: Yes Hx Meningitis: No Hx Migraine: No Hx Parkinson's Disease: No Hx Seizures: No Hx Transient Ischemic Attacks (TIA): Yes - HEENT Hx HEENT Problems: No Hx Blind: No Hx Cataracts: No Hx Deafness: No Hx Difficulty Chewing: No Hx Epistaxis: No Hx Glaucoma: No Hx Macular Degeneration: No - RENAL Hx Chronic Kidney Disease: Yes Hx Dialysis: No Hx Kidney Stones: No Hx Neurogenic Bladder: No Hx Pyelonephritis: No Hx Renal (Kidney) Cancer: No Hx Renal Failure: Yes - ENDOCRINE/METABOLIC Hx Endocrine Disorders: No Hx Diabetes Mellitus Type 1: No Hx Diabetes Mellitus Type 2: No Hx Hypothyroidism: No - HEMATOLOGICAL/ONCOLOGICAL Hx Blood Disorders: No Hx AIDS: No Hx Anemia: No Hx Cancer: No Hx Chemotherapy: No Hx Cirrhosis: No Hx Hepatitis A: No Hx Hepatitis B: No Hx Hepatitis C: No Hx Human Immunodeficiency Virus (HIV): No Hx Metastesis: No Hx Shingles: No Hx Unexplained Bleeding: No - INTEGUMENTARY Hx Dermatological Problems: No Hx Basil Cell: No Hx Eczema: No Hx Melanoma: No Hx Psoriasis: No Hx Squamous Cell: No - MUSCULOSKELETAL/RHEUMATOLOGICAL Hx Musculoskeletal Disorders: Yes Hx Arthritis: No Hx Back Pain: No Hx Degenerative Joint Disease: No Hx Falls: Yes Hx Fractures: Yes ((L) ankle) Hx Gout: No Hx Herniated Disk: No Hx Myasthenia Gravis: No Hx Osteoarthritis: No Hx Osteomyelitis: No Hx Osteoporosis: No Hx Rhabdomyolysis: No Hx Spinal Stenosis: No Hx Unsteady Gait: Yes - GASTROINTESTINAL Hx Gastrointestinal Disorders: No Hx Colostomy: No Hx Crohn's Disease: No Hx Diverticulitis: No Hx Gall Bladder Disease: No Hx Gastroesophageal Reflux: No Hx Ileostomy: No Hx Liver Failure: No Hx Pancreatitis: No HX Swallowing Problems: No Hx Ulcer: No - GENITOURINARY/GYNECOLOGICAL Hx Genitourinary Disorders: Yes Hx Hematuria: No Hx Incontinence: Yes Hx Sexually Transmitted Disorders: No Hx Urinary Tract Infection: Yes - PSYCHIATRIC Hx Psychophysiologic Disorder: No Hx Anxiety: No Hx Bipolar Disorder: No Hx Depression: No Hx Emotional Abuse: No Hx Hallucinations: No Hx Panic Symptoms: No Hx Paranoia: No Hx Post Traumatic Stress Disorder: No Hx Psychosis: No Hx Physical Abuse: No Hx Schizophrenia: No Hx Sexual Abuse: No Hx Substance Use: No - SURGICAL HISTORY Hx Surgeries: Yes Hx Amputation: No Hx Appendectomy: No Hx Cardiac Catheterization: Yes Hx Cholecystectomy: No Hx Coronary Stent: No Hx Gastric Bypass Surgery: No Hx Hysterectomy: No Hx Joint Replacement: No Hx Kidney Transplant: No Hx Liver Transplant: No Hx Mastectomy: No Hx Musculoskeletal Surgery: No Hx Open Heart Surgery: No Hx Orthopedic Surgery: No Hx Splenectomy: No Hx Valve Replacement: No - ANESTHESIA Hx Anesthesia Reactions: No Hx Malignant Hyperthermia: No Meds Allergies/Adverse Reactions: Allergies Allergy/AdvReac Type Severity Reaction Status Date / Time No Known Allergies Allergy Verified 11/03/18 20:59 Physical Exam - Constitutional Appears: Non-toxic, No Acute Distress, Chronically Ill - Head Exam Head Exam: ATRAUMATIC, NORMAL INSPECTION, NORMOCEPHALIC - Eye Exam Eye Exam: EOMI, Normal appearance - ENT Exam ENT Exam: Mucous Membranes Moist, Normal Exam - Respiratory Exam Respiratory Exam: Clear to Auscultation Bilateral, NORMAL BREATHING PATTERN. absent: Rales, Rhonchi, Wheezes - Cardiovascular Exam Cardiovascular Exam: Irregular Rhythm, +S1, +S2. absent: Systolic Murmur - GI/Abdominal Exam GI & Abdominal Exam: Normal Bowel Sounds, Soft. absent: Guarding, Rebound, Tenderness - Extremities Exam Extremities exam: Positive for: normal inspection. Negative for: calf tenderness, pedal edema, tenderness - Neurological Exam Neurological exam: Alert, CN II-XII Intact, Oriented x3 - Psychiatric Exam Psychiatric exam: Normal Affect, Normal Mood - Skin Skin Exam: Dry, Intact, Normal Color, Warm Results - Vital Signs Recent Vital Signs: Last Vital Signs Temp 97.9 F 11/18/18 05:54 Pulse 90 11/18/18 05:54 Resp 18 11/18/18 05:54 BP 132/78 11/18/18 09:30 Pulse Ox 100 11/18/18 05:54 - Labs Result Diagrams: 11/18/18 02:25 11/18/18 02:25 Labs: Laboratory Results - last 24 hr 11/18/18 11/18/18 11/18/18 02:25 02:25 02:25 WBC 11.0 D RBC 4.54 Hgb 13.8 Hct 42.3 MCV 93.2 MCH 30.4 MCHC 32.6 RDW 16.1 H Plt Count 277 MPV 10.7 PT 44.8 H INR 4.04 H* APTT 54.4 H Sodium 136 Potassium 3.7 Chloride 96 L Carbon Dioxide 32 Anion Gap 12 BUN 16 Creatinine 0.7 Est GFR ( Amer) > 60 Est GFR (Non-Af Amer) > 60 Random Glucose 108 Calcium 10.3 Total Bilirubin 0.4 AST 34 ALT 30 Alkaline Phosphatase 114 Lactate Dehydrogenase 398 Total Creatine Kinase < 20 L Troponin I 0.01 Total Protein 7.5 Albumin 3.9 Globulin 3.6 Albumin/Globulin Ratio 1.1 11/18/18 08:15 WBC RBC Hgb Hct MCV MCH MCHC RDW Plt Count MPV PT INR APTT Sodium Potassium Chloride Carbon Dioxide Anion Gap BUN Creatinine Est GFR ( Amer) Est GFR (Non-Af Amer) Random Glucose Calcium Total Bilirubin AST ALT Alkaline Phosphatase Lactate Dehydrogenase Total Creatine Kinase Troponin I 0.01 Total Protein Albumin Globulin Albumin/Globulin Ratio Assessment & Plan - Assessment and Plan (Free Text) Plan: Chest pain r/o ACS Supratherapeutic INR Ischemic stroke Seizure disorder CAD s/p stent placement Chronic A-fib CHF with preserved ejection fraction Dementia Chronic left ankle fracture Patient admitted for chest pain. Patient with troponins negative x2. Chest x-ray reviewed which shows no acute abnormalities. EKG shows A-fib with no ST abnorm alities. Patient will be see by instrument and electrical technician, Dr. Ochoa. Prior medical records reviewed. Recent Echocardiogram reviewed which demonstrates mild systolic dysfunction and biatrial enlargement. INR supratherapeutic today, will decrease daily Wafarin dose to 2 mg from 4 mg. Patient will continue on Keppra for seizures. Patient will continue her ASA and plavix for CAD. Patient will continue Losartan and Metoprolol for CHF. Patient will continue Aricept for Dementia. Patient will continue Lipitor for her ischemic stroke. Patient will continue colace for constipation. Will continue to monitor patient carefully. Alethea, PGY-3 <Moreno Lazo S - Last Filed: 11/18/18 17:23> Results - Vital Signs Recent Vital Signs: Last Vital Signs Temp 98 F 11/18/18 12:00 Pulse 71 11/18/18 12:00 Resp 20 11/18/18 12:00 BP 139/60 11/18/18 12:00 Pulse Ox 100 11/18/18 05:54 - Labs Result Diagrams: 11/18/18 02:25 11/18/18 02:25 Labs: Laboratory Results - last 24 hr 11/18/18 11/18/18 11/18/18 02:25 02:25 02:25 WBC 11.0 D RBC 4.54 Hgb 13.8 Hct 42.3 MCV 93.2 MCH 30.4 MCHC 32.6 RDW 16.1 H Plt Count 277 MPV 10.7 PT 44.8 H INR 4.04 H* APTT 54.4 H Sodium 136 Potassium 3.7 Chloride 96 L Carbon Dioxide 32 Anion Gap 12 BUN 16 Creatinine 0.7 Est GFR ( Amer) > 60 Est GFR (Non-Af Amer) > 60 Random Glucose 108 Calcium 10.3 Total Bilirubin 0.4 AST 34 ALT 30 Alkaline Phosphatase 114 Lactate Dehydrogenase 398 Total Creatine Kinase < 20 L Troponin I 0.01 Total Protein 7.5 Albumin 3.9 Globulin 3.6 Albumin/Globulin Ratio 1.1 11/18/18 08:15 WBC RBC Hgb Hct MCV MCH MCHC RDW Plt Count MPV PT INR APTT Sodium Potassium Chloride Carbon Dioxide Anion Gap BUN Creatinine Est GFR ( Amer) Est GFR (Non-Af Amer) Random Glucose Calcium Total Bilirubin AST ALT Alkaline Phosphatase Lactate Dehydrogenase Total Creatine Kinase Troponin I 0.01 Total Protein Albumin Globulin Albumin/Globulin Ratio Assessment & Plan - Assessment and Plan (Free Text) Plan: Patient was seen and examined by me. I have reviewed the note of the medical secretary receptionist and have gone over the plan of care. I agree with the note. I have reviewed the medications and the last labs.
--- NOTE | 2018-11-18 11:18 | CP.PCM.APN ---
Subjective - Date & Time of Evaluation Date of Evaluation: 11/18/18 Time of Evaluation: 11:10 - Subjective Subjective: pt seen and examined at bedside. pt in NAD, denies CP or SOB , admits to feeling weak Review of Systems - Constitutional Constitutional: Weakness Objective - Vital Signs/Intake and Output Vital Signs (last 24 hours): Temp Pulse Resp BP Pulse Ox 97.9 F 90 18 132/78 100 11/18/18 05:54 11/18/18 05:54 11/18/18 05:54 11/18/18 09:30 11/18/18 05:54 - Medications Medications: Current Medications Aspirin (Ecotrin) 81 mg PO DAILY [facility] Last Admin: 11/18/18 09:30 Dose: 81 mg Atorvastatin Calcium (Lipitor) 40 mg PO DIN JAMES Docusate Sodium (Colace) 200 mg PO HS JAMES Donepezil HCl (Aricept) 5 mg PO HS JAMES Furosemide (Lasix) 40 mg PO DAILY [facility] Last Admin: 11/18/18 09:30 Dose: 40 mg Levetiracetam (Keppra) 500 mg PO BID [facility] Last Admin: 11/18/18 09:31 Dose: 500 mg Losartan Potassium (Cozaar) 50 mg PO DAILY [facility] Last Admin: 11/18/18 09:31 Dose: 50 mg Warfarin Sodium (Coumadin) 2 mg PO 1800 [facility]; Protocol - Labs Labs: 11/18/18 02:25 11/18/18 02:25 PT 44.8 SECONDS (9.4-12.5) H 11/18/18 02:25 INR 4.04 H* 11/18/18 02:25 APTT 54.4 Seconds (26.9-38.3) H 11/18/18 02:25 - Constitutional Appears: No Acute Distress - Eye Exam Eye Exam: Normal appearance - Neck Exam Neck Exam: Normal Inspection - Respiratory Exam Respiratory Exam: Decreased Breath Sounds, NORMAL BREATHING PATTERN - Cardiovascular Exam Cardiovascular Exam: Irregular Rhythm, +S1, +S2 Additional comments: afib - Back Exam Back Exam: NORMAL INSPECTION - Neurological Exam Neurological Exam: Awake Additional comments: left ankle ext rotation - Psychiatric Exam Psychiatric exam: Normal Mood - Skin Skin Exam: Dry, Intact Assessment and Plan - Assessment and Plan (Free Text) Assessment: ITS Impressions Chest X-Ray 11/18/18 02:27 IMPRESSION: Limited linear atelectasis or fibrosis again noted at the bilateral bases though somewhat diminished. No interval acute cardiopulmonary disease appreciated. Plan: 83 yr old pt with pmh sig for cad s/p stents, chf with preserved Ef, dementia, cva with left weeakness, chronic left ankle fx who was admited from [facility] with c/o chest heaviness now undergoing further evaluation with cardiology evaluation in progress. Patient with with negative troponins, ekg noted AFIB, Pt INR elevated - coumadin on hold per discussion with medical team, pt awaiting cardiology eval, if workup negative then patient may return to [facility] in am discuss plan of care with all IDT in rounds and made sw and cm aware of dc planning. Will continue to follow Nikole nicolas BPCI/TIC - BPCIA/TIC Educated pt/family on BPCIA/CIR/Med to Bed Programs: N/A Flyers given, including CMS Beneficiary letter: N/A Pt/family verbalized understanding & agreed to program: N/A (pt in observation)
--- NOTE | 2018-11-18 19:00 | CARD ---
APPROVED REPORT Date of service: 11/18/2018 EKG Measurement Heart [id number] <Conclusion> Atrial fibrillation with premature ventricular or aberrantly conducted complexes Low voltage QRS Nonspecific ST abnormality, probably digitalis effect Abnormal ECG
--- NOTE | 2018-11-18 21:56 | HP ---
DATE OF EXAM: 11/18/2018 HISTORY OF PRESENT ILLNESS: The patient was seen and examined. I do agree with the note of the nuclear medical tech. I was involved in the plan of care. The patient had come in to the hospital because of atypical chest pain. The patient had troponin that was negative. She was seen by Dr. Mac. The patient has a history of seizure disorder and has been on Keppra. She had atrial fibrillation and is on warfarin therapy. The patient's Coumadin has been decreased. She is on losartan for her hypertension. She does have coronary artery disease and is on aspirin and Plavix. She has ischemic stroke with left-sided arm weakness. She is on aspirin for the stroke. She does have dementia, Alzheimer's type. She also most likely has underlying vascular dementia with the stroke. She is on Colace for her constipation. She goes to physical therapy at [facility]. The patient is currently comfortable. She denies any pain. Her chest pain has resolved. Moreno Lazo MD
[2018-11-19 07:04] VITALS: O2SAT 100
--- NOTE | 2018-11-19 09:15 | CON ---
DATE OF CONSULTATION: 11/19/2018 REQUESTING PHYSICIAN: Dr. Lazo. REASON FOR CONSULTATION: Chest pain. HISTORY: This is an 83-year-old woman, known to me, with a history of known coronary artery disease, status post remote PCI, who is transferred from [facility] [place] with complaints of chest discomfort. She states she was having retrosternal chest heaviness. She feels that the staff there did not attend to her needs. However, she eventually was given aspirin and sublingual nitroglycerin. She was transferred to the emergency room. Cardiac enzymes have been negative and electrocardiogram shows no acute changes. She does have a history of chronic atrial fibrillation, prior decompensated congestive heart failure with a preserved ejection fraction. PAST MEDICAL HISTORY: Her past history is notable for nephrolithiasis, dementia, postherpetic neuralgia, history of seizure disorder, prior ischemic stroke with left-sided weakness, and a prior ankle surgery for fracture. MEDICATIONS: Her current medications include Aricept 5 mg daily, Colace, Coumadin, Cozaar 50 mg daily, Ecotrin once daily, Keppra, Lasix 40 mg daily, Lipitor 40 mg daily, and Ultram. ALLERGIES: NONE. SOCIAL HISTORY: She does not smoke or drink. She lives at home with her . FAMILY HISTORY: Both parents are from age-related illness. REVIEW OF SYSTEMS: Ten-point review of systems is otherwise unremarkable. PHYSICAL EXAMINATION: GENERAL: She is an elderly woman, who appears comfortable at rest. VITAL SIGNS: Blood pressure is 130/66 with a pulse of 64, respirations are 14. She is afebrile. HEENT: Normocephalic, atraumatic. Mild right facial droop noted. NECK: Supple. No JVD noted. CHEST: Few scattered rhonchi heard. HEART: PMI displaced laterally with an irregular regular rhythm and systolic murmur at the left sternal border. ABDOMEN: Soft, mildly obese, nontender with normoactive bowel sounds. EXTREMITIES: No edema. SKIN: Warm and dry. PSYCHIATRIC: Normal mood and affect. NEUROLOGIC: Mild left-sided weakness noted. Oriented to person and place. DIAGNOSTIC DATA: The white count is 11, hemoglobin and hematocrit are 13.8 and 42.3 with a platelet count of 277,000. INR is 4, potassium 3.7, BUN and creatinine are 16 and 0.7. Two sets of cardiac enzymes are negative. Electrocardiogram reveals atrial fibrillation with occasional PVC vs Eliseo beat and nonspecific ST-T abnormalities. No acute changes seen. Chest x-ray reveals normal cardiac silhouette with clear lung elizabeth. IMPRESSION: Recent chest pain, possible angina with known coronary artery disease and remote percutaneous coronary intervention. No evidence of acute cardiac injury or active ischemia at the present time. The patient is currently not on antianginal therapy. She does have a normal ventricular rate in the absence of rate control therapy, which suggests she has a significant intrinsic conduction system disease. Avoidance of negative chronotropic agents would be advisable at this time. The addition of chronic nitrate therapy would be reasonable. Imdur 30 mg daily will be added to her regimen. Rest of the problems as noted. RECOMMENDATIONS: From a cardiac standpoint, she appears stable for return to a rehabilitation facility. Continuing conservative management of her coronary artery disease appears most appropriate at this time. Of note, she is very unhappy with the care at [facility] and is requesting transfer to a different center, but again, from a cardiac standpoint, she is stable for discharge. Joel Ochoa MD
--- NOTE | 2018-11-19 09:41 | CP.PCM.DIS ---
<Edward Claire - Last Filed: 11/19/18 10:59> Provider - Provider Date of Admission: 11/18/18 03:26 Attending physician: Moreno Lazo MD Primary care physician: Jose Donohue MD Consults: 11/18/18 04:47 Social Work Referral Routine Comment: hina score = 18 Physician Instructions: Reason For Exam: hina score 11/18/18 05:01 Nursing Referral for Wound Care Routine Comment: Physician Instructions: Reason For Exam: pressure ulcer sacrum POA Transition In Care/Readmission Reduction Routine Comment: Physician Instructions: Reason For Exam: chest pain on admission 11/18/18 06:21 Consult [Physician Consult] Routine Comment: Consulting Provider: Joel Ochoa Consulting Physician: Joel Ochoa Reason for Consult: chest pain 11/18/18 10:53 Nursing Referral for Wound Care Routine Comment: Physician Instructions: Reason For Exam: admitted with stage 2 on sacrum Time Spent in preparation of Discharge (in minutes): 45 Diagnosis - Discharge Diagnosis (1) Chest pain Status: Resolved (2) Ankle fracture Status: Chronic (3) Cerebrovascular accident Status: Chronic (4) Elevated INR Status: Resolved (5) Seizure disorder Status: Chronic (6) CHF (congestive heart failure) Status: Chronic (7) CAD (coronary artery disease) Status: Chronic Hospital Course - Lab Results Lab Results: Most Recent Lab Values WBC 11.0 10^3/uL (4.5-11.0) D 11/18/18 02:25 RBC 4.54 10^6/uL (3.5-6.1) 11/18/18 02:25 Hgb 13.8 g/dL (12.0-16.0) 11/18/18 02:25 Hct 42.3 % (36.0-48.0) 11/18/18 02:25 MCV 93.2 fl (80.0-105.0) 11/18/18 02:25 MCH 30.4 pg (25.0-35.0) 11/18/18 02:25 MCHC 32.6 g/dl (31.0-37.0) 11/18/18 02:25 RDW 16.1 % (11.5-14.5) H 11/18/18 02:25 Plt Count 277 10^3/uL (120.0-450.0) 11/18/18 02:25 MPV 10.7 fl (7.0-11.0) 11/18/18 02:25 PT 44.8 SECONDS (9.4-12.5) H 11/18/18 02:25 INR 4.04 H* 11/18/18 02:25 APTT 54.4 Seconds (26.9-38.3) H 11/18/18 02:25 Sodium 136 mmol/L (132-148) 11/18/18 02:25 Potassium 3.7 mmol/L (3.6-5.0) 11/18/18 02:25 Chloride 96 mmol/L (98-107) L 11/18/18 02:25 Carbon Dioxide 32 mmol/L (21-33) 11/18/18 02:25 Anion Gap 12 (10-20) 11/18/18 02:25 BUN 16 mg/dL (7-21) 11/18/18 02:25 Creatinine 0.7 mg/dl (0.7-1.2) 11/18/18 02:25 Est GFR ( Amer) > 60 11/18/18 02:25 Est GFR (Non-Af Amer) > 60 11/18/18 02:25 Random Glucose 108 mg/dL (70-110) 11/18/18 02:25 Calcium 10.3 mg/dL (8.4-10.5) 11/18/18 02:25 Total Bilirubin 0.4 mg/dL (0.2-1.3) 11/18/18 02:25 AST 34 U/L (14-36) 11/18/18 02:25 ALT 30 U/L (7-56) 11/18/18 02:25 Alkaline Phosphatase 114 U/L (38-126) 11/18/18 02:25 Lactate Dehydrogenase 398 U/L (333-699) 11/18/18 02:25 Total Creatine Kinase < 20 U/L (35-230) L 11/18/18 02:25 Troponin I 0.01 ng/mL 11/18/18 08:15 Total Protein 7.5 g/dL (5.8-8.3) 11/18/18 02:25 Albumin 3.9 g/dL (3.0-4.8) 11/18/18 02:25 Globulin 3.6 gm/dL 11/18/18 02:25 Albumin/Globulin Ratio 1.1 (1.1-1.8) 11/18/18 02:25 - Hospital Course Hospital Course: 83 year old female with past medical history of CAD s/p stent placement, chronic A-fib on Warfarin, CHF with preserved ejection fraction, nephrolithiasis, dementia, post-herpetic neuralgia, chronic left ankle fracture, seizure disorder, and ischemic CVA with left sided weakness presents to the hospital for chest heaviness for 2 days. Patient had negative troponins x 2. EKG demonstrated A-fib with no ST abnormalities. Patient was evaluated by Dr. Ochoa, who recommended the patient add isosorbide mononitrate to current medical regimen. Patient will be transferred to [facility]. Discharge Exam - Head Exam Head Exam: ATRAUMATIC, NORMAL INSPECTION, NORMOCEPHALIC - Eye Exam Eye Exam: EOMI, Normal appearance - Respiratory Exam Respiratory Exam: Clear to PA & Lateral, NORMAL BREATHING PATTERN, UNREMARKABLE - Cardiovascular Exam Cardiovascular Exam: Irregular Rhythm, +S1, +S2. absent: Gallop, Rubs, Systolic Murmur - GI/Abdominal Exam GI & Abdominal Exam: Normal Bowel Sounds, Soft. absent: Tenderness - Extremities Exam Extremities exam: normal inspection - Neurological Exam Neurological exam: Alert, CN II-XII Intact, Oriented x3 - Psychiatric Exam Psychiatric exam: Normal Affect, Normal Mood - Skin Skin Exam: Intact, Normal Color, Warm Discharge Plan - Follow Up Plan Condition: STABLE Disposition: TRANSF TO SNF Instructions: Chest Pain (DC) Additional Instructions: Follow up with your healthcare provider. Continue with all medications. If your symptoms should return or worsen, call 911 or return to your nearest emergency room. Referrals: Jose Donohue MD [Primary Care Provider] - <Moreno Lazo - Last Filed: 11/19/18 15:39> Provider - Provider Date of Admission: 11/18/18 03:26 Attending physician: Moreno Lazo MD Primary care physician: Jose Donohue MD Consults: 11/18/18 04:47 Social Work Referral Routine Comment: hina score = 18 Physician Instructions: Reason For Exam: hina score 11/18/18 05:01 Nursing Referral for Wound Care Routine Comment: Physician Instructions: Reason For Exam: pressure ulcer sacrum POA Transition In Care/Readmission Reduction Routine Comment: Physician Instructions: Reason For Exam: chest pain on admission 11/18/18 06:21 Consult [Physician Consult] Routine Comment: Consulting Provider: Joel Ochoa Consulting Physician: Joel Ochoa Reason for Consult: chest pain 11/18/18 10:53 Nursing Referral for Wound Care Routine Comment: Physician Instructions: Reason For Exam: admitted with stage 2 on [facility] Course - Lab Results Lab Results: Most Recent Lab Values WBC 11.0 10^3/uL (4.5-11.0) D 11/18/18 02:25 RBC 4.54 10^6/uL (3.5-6.1) 11/18/18 02:25 Hgb 13.8 g/dL (12.0-16.0) 11/18/18 02:25 Hct 42.3 % (36.0-48.0) 11/18/18 02:25 MCV 93.2 fl (80.0-105.0) 11/18/18 02:25 MCH 30.4 pg (25.0-35.0) 11/18/18 02:25 MCHC 32.6 g/dl (31.0-37.0) 11/18/18 02:25 RDW 16.1 % (11.5-14.5) H 11/18/18 02:25 Plt Count 277 10^3/uL (120.0-450.0) 11/18/18 02:25 MPV 10.7 fl (7.0-11.0) 11/18/18 02:25 PT 25.0 SECONDS (9.4-12.5) H 11/19/18 10:15 INR 2.21 11/19/18 10:15 APTT 47.1 Seconds (26.9-38.3) H 11/19/18 10:15 Sodium 136 mmol/L (132-148) 11/18/18 02:25 Potassium 3.7 mmol/L (3.6-5.0) 11/18/18 02:25 Chloride 96 mmol/L (98-107) L 11/18/18 02:25 Carbon Dioxide 32 mmol/L (21-33) 11/18/18 02:25 Anion Gap 12 (10-20) 11/18/18 02:25 BUN 16 mg/dL (7-21) 11/18/18 02:25 Creatinine 0.7 mg/dl (0.7-1.2) 11/18/18 02:25 Est GFR ( Amer) > 60 11/18/18 02:25 Est GFR (Non-Af Amer) > 60 11/18/18 02:25 Random Glucose 108 mg/dL (70-110) 11/18/18 02:25 Calcium 10.3 mg/dL (8.4-10.5) 11/18/18 02:25 Total Bilirubin 0.4 mg/dL (0.2-1.3) 11/18/18 02:25 AST 34 U/L (14-36) 11/18/18 02:25 ALT 30 U/L (7-56) 11/18/18 02:25 Alkaline Phosphatase 114 U/L (38-126) 11/18/18 02:25 Lactate Dehydrogenase 398 U/L (333-699) 11/18/18 02:25 Total Creatine Kinase < 20 U/L (35-230) L 11/18/18 02:25 Troponin I 0.01 ng/mL 11/18/18 08:15 Total Protein 7.5 g/dL (5.8-8.3) 11/18/18 02:25 Albumin 3.9 g/dL (3.0-4.8) 11/18/18 02:25 Globulin 3.6 gm/dL 11/18/18 02:25 Albumin/Globulin Ratio 1.1 (1.1-1.8) 11/18/18 02:25 - Hospital Course Hospital Course: Pt seen and examined by me. I have reviewed the note of the medical radiation therapist and I agree with it. I have discussed the assessment and plan with the resident. I have reviewed the medications and the last labs.
[2018-11-19 10:49] LABS: INR 2.21; PARTIAL THROMBOPLASTIN TIME 47.1 Seconds (26.9-38.3)
[2018-11-19 12:06] VITALS: BP 149/62; RESP 20; TEMP 97.7
[2018-11-19 15:58] VITALS: PULSE 89
--- NOTE | 2018-11-19 22:44 | DS ---
HISTORY OF PRESENT ILLNESS: The patient was seen and examined. I do agree with the note of the medical sonographer. I was involved in the plan of care. The patient had initially came into the hospital with atypical chest pain. She had her troponins, which were normal. She was seen by Cardiology, Dr. Ochoa, the patient was cleared to be discharged. She is going to be discharged back to [facility]. She does have a history of seizures and she is on seizure medications. The patient is comfortable. She denies any pain. She has been on Coumadin for her atrial fibrillation. Her prognosis is guarded with her rehabilitation. She is on Keppra for her seizures. She is on aspirin and Plavix for her coronary artery disease, as well as for her ischemic stroke. Moreno Lazo MD
== END 2018-11-19 14:58 ==
LOC: ED 01:51 → ERH 03:26 → 2RNO 04:12
PROVIDERS: ADMIT Internal Medicine Nephrology; ATTEND Internal Medicine Nephrology
DX: R07.89 Other chest pain (principal); I25.10 Atherosclerotic heart disease of native coronary artery without angina pectoris; I11.0 Hypertensive heart disease with heart failure; I50.32 Chronic diastolic (congestive) heart failure; I69.354 Hemiplegia and hemiparesis following cerebral infarction affecting left non-dominant side; I48.2 Chronic atrial fibrillation; Z79.01 Long term (current) use of anticoagulants; M81.0 Age-related osteoporosis without current pathological fracture; R79.1 Abnormal coagulation profile; N20.0 Calculus of kidney; B02.29 Other postherpetic nervous system involvement; F02.80 Dementia in other diseases classified elsewhere, unspecified severity, without behavioral disturbance, psychotic disturbance, mood disturbance, and anxiety; G30.9 Alzheimer's disease, unspecified; G40.909 Epilepsy, unspecified, not intractable, without status epilepticus; K59.00 Constipation, unspecified; Z79.02 Long term (current) use of antithrombotics/antiplatelets; Z79.82 Long term (current) use of aspirin; Z95.5 Presence of coronary angioplasty implant and graft
CPT/HCPCS: 36415; 71045; 80053; 82550; 83615; 84484; 85027; 85610; 85730; 93005; 99285; G0378; J1885